=== PATIENT | male | born 1945 | race Caucasian/White ===

== ENCOUNTER 2017-07-23 04:09 | Inpatient (IN) | payer MEDICARE, OTHER ==
[2017-07-23 05:49] LABS: #Lymphocytes 0.3 thou/uL (1.20-3.40); #Monocytes 0.3 thou/uL (0.11-0.59); #Neutrophils 8.1 thou/uL (1.40-6.50); %Eosinophils 0.2 % (0.0-10.0); %Lymphocytes 3.5 % (21.0-51.0); %Monocytes 3.4 % (0.0-10.0); Hemoglobin 7.7 g/dL (14.0-18.0); Mean Corpuscular HGB CONC 31.8 g/dL (32.0-36.0); Mean Corpuscular Hemoglobin 27.2 pg (27.0-31.0); Mean Corpuscular Volume 85.6 fl (80.0-94.0); Mean Platelet Volume 7.8 fL (7.4-10.4); Platelet Count 265 thou/uL (130-400); RBC Distribution Width 17.7 % (11.5-14.5); Red Blood Cell (RBC) Count 2.84 mill/uL (4.70-6.10); White Blood Cell (WBC) Count 8.7 thou/uL (4.8-10.8)
[2017-07-23 05:53] LABS: Bilirubin Negative (Negative); Blood, Urine Moderate (Negative); Clarity CLEAR (Clear); Glucose, Urine (Dipstick) 500 mg/dL (Negative); Leukocyte Negative (Negative); Nitrite Negative (Negative); Protein, Urine (Dipstick) Negative (Neg-Trace); Specific Gravity, Urine 1.012 (1.002-1.036); Urobilinogen 0.2 mg/dL (0.2-1.0)
[2017-07-23 06:07] LABS: ALT (SGPT) 16 U/L (8-55); AST (SGOT) 23 U/L (5-34); Albumin 3.5 g/dL (3.4-4.8); Alkaline Phosphatase 78 U/L (40-150); Anion Gap 15 mmol/L (10-20); BUN (Urea Nitrogen) 22 mg/dL (8.4-25.7); Bilirubin, Total 0.3 mg/dL (0.2-1.2); CK (CPK) 184 U/L (30-200); Calc. Creatinine Clearance 0 mL/min (70-130); Calcium 8.6 mg/dL (7.8-10.44); Carbon Dioxide 20 mmol/L (23-31); Chloride 95 mmol/L (98-107); Estimated GFR-MDRD 46; Globulin 3.8 g/dL (2.4-3.5); Glucose 455 mg/dL (83-110); Lipase 12 U/L (8-78); Magnesium 1.8 mg/dL (1.6-2.6); Potassium 4.2 mmol/L (3.5-5.1); Protein, Total 7.3 g/dL (5.8-8.1); Sodium 126 mmol/L (136-145)
[2017-07-23 06:14] LABS: CKMB 10.1 ng/mL (0-6.6); Troponin I 2.061 ng/mL (< 0.028)
[2017-07-23] MEDS ORDERED: Enoxaparin Sodium 80 MG/0.8 ML SYRINGE ONE (06:36)
[2017-07-23 07:07] LABS: Bacteria/HPF None Seen HPF (None Seen); Hyaline Casts/LPF 0-3 HYALINE CAST LPF (0-3 Hyaline); Squamous Epithelial 0-3 HPF (0-3); WBC/HPF 0-3 HPF (0-3)
--- NOTE | 2017-07-23 07:09 | PDOC.FPRHP ---
- History of Present Illness Chief Complaint: Shortness of breath, Chest pain History of Present Illness: 72 year old male with PMH significant for HTN, DM type II, and CHF that presented to [facility] with complaints of severe shortness of breath on exertion, chest pain, and diaphoresis. Patient states that he got up from his recliner early this morning when he started to have extreme difficulty catching his breath. He made it barely 10 feet before having to gasp for air. Patient states he has been getting short of breath on exertion since being discharged from the hospital 3 weeks ago; however, it has never been this severe. He was released from the hospital 3 weeks ago after being treated for 6 weeks with IV antibiotics for osteomyelitis of the left foot which required amputation of all digits. This most recent episode was associated with diffuse pressure-like chest pain with no radiation of symptoms and a feeling of being very hot. He denies any nausea. Patient is uncertain of the medications he takes and does not have very good recollection of his PMH. He does state that he had issues with his liver, so he quit drinking 2 years ago. However, he relapsed since last hospital visit 3 weeks ago. He has a history of bloody emesis and has had scopes performed in the past. He cannot recall the results of those scopes. Additionally, he did note 3 black stools prior to discharge from hospital three weeks ago but did not want to stay to be further worked up. He has not noted any episodes since then. Last colonoscopy was around 5 years ago which was normal at that time. Patient had lab work done recently. He received a call from his PCP yesterday afternoon asking him to go to the ED due to concerns on lab work. He cannot recall exactly why they told him to go to the ED, and decided against going due to how for it was from home. Patient had cardiac catheterization done years ago which was normal. He thinks he had a recent echo done while in hospital to further evaluate heart murmur. Of note, patient was started on warfarin, although he does not know exactly why he is taking it. He thinks it is because of the murmur. It sounds like he was started on that at last discharge. ED Course: Transferred from [facility] due to NSTEMI. Given ASA 81 mg and started on therapeutic lovenox in ED. Given 2g of magnesium. Sent for CTA. Given 1 unit of pRBCs at [facility]. - History PMHx: Known PMH includes HTN, DM type II, CAD, Heart murmur, liver dysfunction PSHx: Left foot amputation (all 10 digits), cholecystectomy, Right first digit amputation FHx: No history of early CAD Social: Endorses alcohol abuse history. Quit 2 years ago due to liver problems. Recently relapsed after being released from hospital 3 weeks ago. Endorses tobacco abuse history. He states he quit smoking 3 months ago, but started smoking again after last hospitalization. - Review of Systems General: denies: fever/chills, weight/appetite/sleep changes Eyes: denies: vision changes ENT: denies: nasal congestion, rhinorrhea Respiratory: reports: shortness of breath, exercise intolerance. denies: cough , congestion Cardiovascular: reports: chest pain, edema. denies: palpitation Gastrointestinal: reports: constipation, GI bleeding. denies: nausea, vomiting , diarrhea, abdominal pain Genitourinary: reports: incontinence. denies: dysuria, polyuria Skin: denies: rashes, lesions Musculoskeletal: reports: pain. denies: stiffness Neurological: reports: numbness, weakness. denies: syncope, seizure Psychological: denies: depression - Vital signs BP: [119/75] HR: [106] RR: [18] Tmax: [98] Pox: [99]% on [2L] Wt: [86 kg] - Physical Exam Constitutional: NAD, awake, alert and oriented, well developed HEENT: EOMI, no scleral icterus Neck: supple Heart: RRR -Heart: 3/6 systolic murmur Lungs: CTAB, no respiratory distress, no wheezing Abdomen: soft, non-tender, bowel sounds present, no masses/distention -Musculoskeletal: Left foot amputation; all 5 digits amputated. Amputation of first digit on right. Reproducible pain on palpation of chest wall. Neurological: no focal deficit Skin: good turgor, capillary refill <2 seconds -Skin: Left midfoot amputation wound site is intact. No purulent drainage or evidence of infection. Mild erythema surrounding wound. No warmth or significant tenderness to palpation. Mild swelling of left foot and ankle. Heme/Lymphatic: no unusual bruising or bleeding FMR H&P: Results - Labs Result Diagrams: 07/23/17 05:24 07/23/17 05:24 Lab results: WBC 8.7 thou/uL (4.8-10.8) 07/23/17 05:24 Hgb 7.7 g/dL (14.0-18.0) L 07/23/17 05:24 Hct 24.3 % (42.0-52.0) L 07/23/17 05:24 MCV 85.6 fl (80.0-94.0) 07/23/17 05:24 Plt Count 265 thou/uL (130-400) 07/23/17 05:24 Neutrophils % 93.0 % (42.0-75.0) H 07/23/17 05:24 Sodium 126 mmol/L (136-145) L 07/23/17 05:24 Potassium 4.2 mmol/L (3.5-5.1) 07/23/17 05:24 Chloride 95 mmol/L (98-107) L 07/23/17 05:24 Carbon Dioxide 20 mmol/L (23-31) L 07/23/17 05:24 BUN 22 mg/dL (8.4-25.7) 07/23/17 05:24 Creatinine 1.49 mg/dL (0.6-1.3) H 07/23/17 05:24 Glucose 455 mg/dL (83-110) H 07/23/17 05:24 Calcium 8.6 mg/dL (7.8-10.44) 07/23/17 05:24 Total Bilirubin 0.3 mg/dL (0.2-1.2) 07/23/17 05:24 AST 23 U/L (5-34) 07/23/17 05:24 ALT 16 U/L (8-55) 07/23/17 05:24 Alkaline Phosphatase 78 U/L (40-150) 07/23/17 05:24 Creatine Kinase 184 U/L (30-200) 07/23/17 05:24 CK-MB (CK-2) 10.1 ng/mL (0-6.6) H* 07/23/17 05:24 B-Natriuretic Peptide 1830.4 pg/mL (0-100) H 07/23/17 05:24 Serum Total Protein 7.3 g/dL (5.8-8.1) 07/23/17 05:24 Albumin 3.5 g/dL (3.4-4.8) 07/23/17 05:24 Lipase 12 U/L (8-78) 07/23/17 05:24 Urine Ketones Negative mg/dL (Negative) 07/23/17 05:27 Urine Blood Moderate (Negative) H 07/23/17 05:27 Urine Nitrite Negative (Negative) 07/23/17 05:27 Ur Leukocyte Esterase Negative (Negative) 07/23/17 05:27 - Radiology Interpretation CT scan - chest Status: report reviewed by me Additional comment: No PE. Pulmonary edema. Indeterminate left upper lobe cavitary lesion. Chest x-ray Status: report reviewed by me Additional comment: Right lower lobe infiltrate. FMR H&P: A/P - Problem List (1) NSTEMI (non-ST elevated myocardial infarction) Current Visit: Yes Status: Acute Code(s): I21.4 - NON-ST ELEVATION (NSTEMI) MYOCARDIAL INFARCTION (2) Severe anemia Current Visit: Yes Status: Acute Code(s): D64.9 - ANEMIA, UNSPECIFIED (3) CHF (congestive heart failure) Current Visit: Yes Status: Acute Code(s): I50.9 - HEART FAILURE, UNSPECIFIED Qualifiers: Heart failure chronicity: acute on chronic (4) HTN (hypertension) Current Visit: Yes Status: Chronic Code(s): I10 - ESSENTIAL (PRIMARY) HYPERTENSION (5) DM type 2 (diabetes mellitus, type 2) Current Visit: Yes Status: Chronic Qualifiers: Diabetes mellitus exterminator helper insulin use: with nursing home use Diabetes mellitus complication status: without complication Qualified Code(s): E11.9 - Type 2 diabetes mellitus without complications; Z79.4 - senior living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; Z79.4 - senior living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; Z79.4 - exterminator helper ( 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; Z79.4 - senior living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 (6) Osteomyelitis Current Visit: Yes Status: Acute Code(s): M86.9 - OSTEOMYELITIS, UNSPECIFIED (7) Murmur, cardiac Current Visit: Yes Status: Acute Code(s): R01.1 - CARDIAC MURMUR, UNSPECIFIED - Plan NSTEMI: - Possibly due to demand - Patient presented with severe symptomatic anemia and CHF exacerbation - Initial troponin of 1.131 --> 2.061; CKMB 8.1 --> 10.1 - Asymptomatic currently; no chest pain, no shortness of breath at rest - Given 81 mg ASA in ED - Therapeutic lovenox - Consult cardiology - Cardiac catheterization years ago nml - NPO until evaluated by cardiology and GI - NS @ 125 ml/hr - ST depression in inferior and lateral leads - CTA negative for PE. Questionable upper lobe cavitary lesion Acute hypoxic respiratory failure: - Continue O2 supplementation PRN - Likely 2/2 severe anemia and CHF exacerbation Severe symptomatic anemia: - Hg 6.9 in [facility] - S/p 1 unit pRBCs --> Hg 7.7 - Type and cross 2 units of pRBCs - Q4h H&H - Consult GI - FOBT positive, no BRBPR - On warfarin, uncertain of how often patient has been taking it or when it was started - INR 1.3 - Last colonoscopy 5 years ago which was normal at that time CHF exacerbation - BNP 1034 --> 1830 after pRBCs - Pleural effusions noted on CT - 40 mg IV lasix given in ED - Will give an additional 40 mg IV lasix and monitor fluid status - Strict I&O's - Weigh daily - Continue home meds and evaluate if patient on BB, JOSE A-I, spironolactone - O2 PRN - Repeat echo Hyponatremia - Likely 2/2 increased volume - Will treat more acute problems and continue to monitor sodium CODY vs. CKD - Continue to monitor kidney function - Likely d/t poor perfusion DM type II - Uncontrolled - Continue home insulin regimen - Mild SSI - CC carb diet HTN - Continue home medications DVT ppx - Lovenox, therapeutic Disposition/LOS: Dispo: Admit to telemetry. Consult cards and GI this AM. Monitor H&H. Anticipate stay of >2 days. FMR H&P: Upper Level - Pertinent history 72 yo male with DM, CHF and recent osteomyelitis, presents with fatigue, sob and chest pain. Fatigue started several days ago but chest pain started last night. He says his sob is worse when he lays flat. he was sweaty earlier. Now he feels better from sob and pain, but still fatigued. He denies fever or nausea. He has had no vomiting or dark or bloody stools. No abdominal pain. He was admitted for 6 weeks for abx and mid foot amputation. He was discharge on warfarin and he stopped taking it from increased fatigue. He is not sure if he has ever had afib. He denied dark stools at time of warfarin. He denies hx of CAD - Pertinent findings Gen: WD/WN male in no acute distress but sitting up for easier breathing. HEENT: NC/AT, FRANK,EOMI, MMM Resp: CTA, mild increase normal work of breathing but moving good air on exam and not tachypneic CV: RRR, normal S1, S2, 3/6 systolic murmur, no appreciable extra heart sound ABD: Soft nontender, nondistended Extremities: no edema, pulses 2+, Left mid foot amptuation Psych: mildly anxious Neuro- normal strength and sensation EKG- sinus tachycardia with ST depressions in 1, V4-6, - Plan Date/Time: 07/23/17 0658 IBob, have evaluated this patient and agree with findings/plan as outlined by direct marketing intern resident. Pertinent changes/additions are listed here. 1.NSTEMI- elevated trops, acute symptoms and ST depression in congruent leads. Treated with asa and lovenox with improvement of symptoms. Will admit and consult cards. Will continue lovenox and monitor trops. 2.CHF exacerbation- patient has symptoms of orthopnea. Will give Lasix, monitor for volume issues and repeat echo. Could have new valvular issue. Requesting home medications to continue beta afsaneh. 3.Symptomatic anemia- improved with 1 PRBC but will check q4 H+H. see below for cause 4.GI blood loss- Has past hx, so will monitor closely for increased. No merissa blood or melena, but positive FOBT. Will need repeat endoscopy at some point, but hopefully outpatient if no signs of large volume bleeding. Will monitor vitals closely, have transfusions ready and check q4 Hemoglobin 5.DM2- will give extra insulin now for increased levels and then continue home regemin with ssi 6.CODY vs CKD- will treat above and monitor 7.Hyponatremia- Will treat other conditions and monitor with repeat level tomorrow. Likely due to increased volume from chf vs SIADH. 8.DVT ppx- on lovenox Attending Addendum - Attending Addendum Date/Time: 07/23/17 3129 I personally evaluated the patient and discussed the management with Dr. Moon. I agree with the History, Examination, Assessment and Plan documented above with any addition or exceptions noted below. 72 y.o. WM with h/o PVD s/p R transmet amputation, CHF, DM2, HTN, Cirrhosis, Microcytic Anemia transferred from [facility] ED for Severe anemia, Guaiac pos , sx's c/w NYHA Class IV exacerbation of CHF, and NSTEMI. Transfused, Diuretic , NTG, O2, Card and GI consults.
--- NOTE | 2017-07-23 07:56 | CT ---
PRELIMINARY REPORT/[facility]/EMERGENCY AFTER HOURS PROCEDURE: EXAM: CT Angiography Chest With Intravenous Contrast CLINICAL HISTORY: 72 years old, male; Pain; Chest pain; Type not specified; Patient HX: History provided by patient, 72 yo m transferred from [place] presents to ed C/O SOB. Pt was found to have anemia and nstemi wi th troponin of 1.1. Pt tachy with pulse 122 and BP initially 109/65 at [place]. O2 sats 100% on room air. [facility] [place] [facility] was started on warfarin x3 days ago. P t does have a h/o copd but does not use supplemental o2 at home. Hgb 6.9 at [place]. Elevated tr oponin due to tachycardia and demand ischemia as opposed to cardiac condition. Thus, aspirin was held at the time due to concerns for bleeding. Magnesium was low at 1.2. Given 40 of lasi x due to bnp of 1000. D-dimer elevated at 0.83. Inr 1.3. Pt denies chest pain. Denies dark or tarry s tools, denies blood in stool. Denies blood in urine. Pt states that he is feeling tired. Reports intermittent subjective fever recently. TECHNIQUE: Axial computed tomographic angiography images of the chest with intravenous contrast using pulmonary embolism protocol. Coronal reformatted images were created and reviewed. CONTRAST: 70 mL of ISOVUE administered intravenously. COMPARISON: No relevant prior studies available. FINDINGS: Pulmonary arteries: No pulmonary embolus is identified. Aorta: Aortic valvular calcifications. No thoracic aortic aneurysm. Lungs: Band of right upper lobe scarring. 1.2 cm pleural-based nodular density with spiculated margin s posteriorly in the right upper lobe. 1.8 cm cavitary lesion with spiculated margins in the left upp er lobe. Basilar predominant peribronchial and interlobular septal thickening and patchy groundglass opacity. Pleural space: Small right and minimal left pleural effusions. Heart: Coronary calcifications. No significant pericardial effusion. Bones/joints: No acute fracture. No dislocation. Soft tissues: Unremarkable. Lymph nodes: Unremarkable. No enlarged lymph nodes. Upper abdomen: Nodular liver with prominent caudate lobe. Cholecystectomy. IMPRESSION: 1. No evidence of pulmonary embolus. Basilar predominant peribronchial and interlobular septal thicke nannette suggestive of pulmonary edema with small right and minimal left pleural effusions. 2. Indeterminate left upper lobe cavitary lesion. Right upper lobe scarring and spiculated pleuralbas ed nodular density posteriorly. Thank you for allowing us to participate in the care of your patient. Dictated and Authenticated by: Gerardo Donahue MD 07/23/2017 6:20 AM Central Time ([place] & [place]) FINAL REPORT CT ANGIOGRAM OF CHEST: Date: 07/23/17 HISTORY: Shortness of breath. Evaluate for pulmonary artery embolism. COPD. COMPARISON: None. TECHNIQUE: CT angiogram of the chest is performed in the axial plane. Bilateral oblique and coronal three-dimens ional reformatted images are submitted for interpretation. FINDINGS: This report is in agreement with the preliminary report by [facility]. No evidence of pulmonary artery embo lism to the level of the segmental arteries. There appear to be chronic changes throughout the lung p arenchyma. There is an area of scarring in the right upper lobe. There is a pleural based opacity wit h slightly irregular marginations involving the posterior aspect of the right upper lobe measuring 1. 6 cm. There is a cavitary lesion with spiculated margin in the left upper lobe, measuring 1.8 cm. Cir rhotic changes to the liver are noted. Nonspecific subcarinal lymph node measuring 1.4 x 2.1 cm. Mild right hilar lymphadenopathy, measuring 1.3 x 1.5 cm. Precarinal lymph node measuring 1.4 cm. Better interrogation with pulmonary consultati on is recommended. CODE LN. POS: [facility]
[2017-07-23 09:12] LABS: Troponin I 5.879 ng/mL (< 0.028)
[2017-07-23] MEDS ORDERED: traMADol HCl 50 MG TAB ONE ×2 (09:12)
[2017-07-23] MEDS ORDERED: Furosemide 40 MG/4 ML VIAL SLOW IVP SCH ×3 (10:00→22:15)
[2017-07-23] MEDS ORDERED: Furosemide 40 MG/4 ML VIAL ONE (10:42)
[2017-07-23 12:00] LABS: CKMB 13.3 ng/mL (0-6.6); Troponin I 9.237 ng/mL (< 0.028)
[2017-07-23] MEDS ORDERED: Dextrose 5% in Water 1,000 ML IV PRN ×2 (14:26→17:59)
[2017-07-23] MEDS ORDERED: Dextrose 50% Abboject 50 ML SYRINGE SLOW IVP PRN ×2 (14:26→17:59)
[2017-07-23] MEDS ORDERED: ISOVUE-370 76%-LOCM 1 ML ONE (14:44)
[2017-07-23 15:30] VITALS: BMI 25.3
[2017-07-23] MEDS: Nitroglycerin 2% Ointment 1 INCH/1 GM Packet TOP SCH ×2 (16:00→22:05)
[2017-07-23] MEDS: Carvedilol 3.125 MG TAB PO SCH (17:56)
[2017-07-23] MEDS ORDERED: traMADol HCl 50 MG TAB PO SCH (18:00)
[2017-07-23] MEDS ORDERED: Insulin Regular 300 UNITS/3 ML VIAL SC SCH ×3 (18:00→21:15)
[2017-07-23 18:04] LABS: Hemoglobin 8.8 g/dL (14.0-18.0); Platelet Count 234 thou/uL (130-400)
[2017-07-23 18:19] LABS: Hemoglobin A1c 6.1 % (4.0-6.0)
[2017-07-23 18:30] LABS: Cardiac Risk 3.7 (Less than 4.5)
[2017-07-23 18:44] LABS: CKMB 13.7 ng/mL (0-6.6); Troponin I 12.092 ng/mL (< 0.028)
--- NOTE | 2017-07-23 19:42 | CON ---
DATE OF CONSULTATION: 07/23/2017 CARDIOLOGY CONSULTATION INDICATION FOR CONSULTATION: This is a 72-year-old patient with a history of severe anemia, shortnes s of breath, dyspnea on exertion. He denied any chest pain to me. He presented to the emergency jose in [place], who complained of shortness of breath while going to the kitchen to get something to drink. He then eventually called 911 and was given oxygen, was taken to the emergency room, he wa s found to have severe anemia. His hemoglobin, I believe is less than 7. He has been transfused at least 1 unit. Hemoglobin at least 5:00 this morning was 7.7, hematocrit 24.3, WBC of 8.7 and platele t count was 265,000. He recently was in the hospital in [place] for about he says about 6-7 weeks whe re he had amputation of the left foot toes and part of the forefoot appears to be also had been remov ed, but this just may have been up to the metatarsals. He was there for several weeks apparently due to osteomyelitis which could not be healed. He does have history of diabetes and he had a long hist ory of tobacco abuse. He has been smoking in the past. He said up to 3 packs a day for approximatel y 30 years and he stopped smoking about 3 months ago. He had peripheral vascular disease, it was fel t that perhaps he would need to have some intervention performed. He is uncertain whether that was d one in [place] or not. When he came in today, he also said he had a catheterization in [place] many y ears ago, so he had no significant disease. He did have history of cardiac murmur, but denied any ch est pain. He is uncertain as to whether or not he had a recent stress test. He did possibly have an echo in [place] recently on his last admission there. At this time in the emergency room, his cardia c enzymes are slightly elevated and EKG showed some nonspecific changes, ST segment depression in the inferior and lateral leads. His laboratory data showed a troponin I to be 2.06 and it increased all the way up to 9.23 with an MB of 13.3, which likely is indicative of myocardial infarction which may be associated with his severe anemia but most likely has underlying coronary artery disease. It is a very difficult situation for this patient at this time since we are unable take him to the cardiac lab[facility] when his hemoglobin is low at 7.7. We will need to try to treat him medically first and the n evaluate him later if at all possible. He had been given a dose of Lovenox earlier today and I wobrennan oliveros suggest we switch this if necessary over to heparin so that it can be reversed if necessary if he has any overt bleeding. He denies any significant recent bleeding at this time. His BNP also was el evated at 1830, compound with some degree of congestive heart failure and will need to have an echoca rdiogram as soon as possible. PAST MEDICAL HISTORY: Significant for diabetes type 2, hypertension, history of liver dysfunction. He has had left foot amputation of all the digits. He has also had 2 digits removed from the right f oot. The first and second digits of the right foot have been removed. He has had a cholecystectomy. SOCIAL HISTORY: He has a history of alcohol abuse. He said he stopped about 2 years ago. There is some indication that he started drinking again after being released in the hospital, but he denied th at to me. He said he stopped smoking and has not started again, but did have a long history of tobac co abuse in the past. He lives at home. REVIEW OF SYSTEMS: A 12-point review of systems is unremarkable except for what is noted in the hist ory of present illness. ALLERGIES: No known drug allergies. PRESENT MEDICATIONS: Include nebulizer treatments. He is on insulin with a sliding scale, Protonix, and nitroglycerin. He has been given nitroglycerin paste. PHYSICAL EXAMINATION: GENERAL: Reveals an elderly, ill, kempt gentleman who is alert and oriented at this time. He denies any significant symptoms. He is not short of breath and is not having any chest discomfort. VITAL SIGNS: His blood pressure 120/86, heart rate 115 and shows a sinus rhythm. HEENT: Shows head to be normocephalic and atraumatic. There is some noise or some radiation from th e aortic area up into the carotids. It does not sound as if he has carotid bruits, but this is radia tion from the aortic area. LUNGS: His chest has decreased breath sounds throughout, I do not hear any rales, rhonchi or wheezin g. CARDIOVASCULAR: Exam reveals a tachycardia with a regular rhythm. He has a systolic murmur 2/6 over the aortic area, also systolic murmur at the apex approximately 3/6 compatible most likely with mitr al valve regurgitation as well as some aortic valve sclerosis or mild stenosis. ABDOMEN: Shows some mild obesity. Liver seems to be enlarged, slightly tender. Bowel sounds are pr esent. Otherwise, there were no masses. EXTREMITIES: Showed no clubbing or cyanosis. He has evidence of recent surgery, digit removal of th e left foot and also some of the right foot. I could not palpate pedal pulses, but could palpate fem oral pulses. Popliteal pulses also are significantly decreased. NEUROLOGIC: The patient appears to be intact. SKIN: Warm and dry. LABORATORY DATA: Most important for the troponin I which is increased from 2.06 up to 9.23 compatibl e with a non-ST segment elevation myocardial infarction with an MB which is increased up to 13.3. Hi s BNP is 1830. His sodium is 126, creatinine is 1.49, blood sugar is 455. Hemoglobin is 7.7, hemato crit 24.3, WBC of 8.7 and platelet count was 265,000. His PTT was 39.7. Urinalysis shows 500 units of glucose in the urine. IMPRESSION: 1. Non-ST segment elevation myocardial infarction which appears to be inferior lateral most likely t his gentleman does have significant underlying coronary artery disease, has a long history of tobacco abuse and diabetes. Once he becomes more stable then he should undergo cardiac catheterization for evaluation of his coronary arteries. In the meantime, it will be very difficult if necessary to rebecca t this gentleman, but if there is no overt bleeding, would advise heparin, which could be easily reve rsed if necessary. Also, we would add nitroglycerin as much as tolerated as well as beta blockers to keep the heart rate under better control. 2. History of significant anemia and there is no overt bleeding at this time that we are aware of. We will need to have further evaluation to see whether or not there is any blood in the stools and wi ll need to transfuse the patient at least hemoglobin, most likely to 10 since he appears to be having myocardial infarction. He is not a candidate to go to the cardiac [facility] unless it is a life and unless the hemoglobin is more than 10. 3. History of diabetes. This will be dealt with by the primary care service. It is noted that his blood sugar at this time is obviously not under good control and severely elevated when he arrived in today. Blood sugar was over 455. 4. Hyponatremia, which most likely is associated with the elevated blood sugar, this will also need to be addressed by the primary care service. 5. History of tobacco abuse and most likely severe peripheral vascular disease and he does have mike pheral vascular disease and actually has decreased pedal pulses, I cannot palpate them nor popliteal pulses. We will try this by Doppler. In the future, he may also need to undergo further evaluation if this was not performed in [place]. We will need to obtain the records from [place] to see exactly w hat kind of workup and evaluation was performed while he was there. At this time, I would continue h is medicines, but would add beta blockers if at all possible and continue nitrates if possible based on the blood pressure and see if he can tolerate these and certainly transfuse the patient at least i n his case up to hemoglobin of 8. We will obtain an echocardiogram for evaluation of left ventricula r systolic function.
[2017-07-23] MEDS: HumaLOG 300 UNITS/3 ML VIAL SC PRN ×2 (19:45→22:11)
[2017-07-23] MEDS ORDERED: Atorvastatin Calcium 40 MG TAB PO SCH (21:00)
[2017-07-23] MEDS ORDERED: Insulin Detemir 100 UNITS/ML 15 UNITS in Admixture Fee 1 EACH SC SCH (21:00)
[2017-07-23] MEDS: Pantoprazole 40 MG VIAL IVP SCH (22:05)
[2017-07-23] MEDS: Melatonin 3 MG TAB PO PRN (22:05)
[2017-07-23] MEDS: Insulin Detemir 100 UNITS/ML 30 UNITS in Pre-Filled Syringe 1 EACH SC SCH (22:06)
[2017-07-23 22:11] LABS: CKMB 10.8 ng/mL (0-6.6); Critical Call CKMBM RESULT DECREASING; Critical Call Chem Troponin I RESULT DECREASING; Troponin I 11.369 ng/mL (< 0.028)
--- NOTE | 2017-07-23 22:58 | PDOC.EVN ---
Event Note - Event Note Event Note: Communicated with Dr. Amin regarding increased troponin at 2049. - Dr. Amin recommended starting ASA 325mg, states the patient quite possibly has 3V disease but is not a candidate for CABG at this time - EF 20%, guarded prognosis - patient not having chest pain at this time - Will hold off on heparin for now 2/2 Dr. Amin recs - Trend cardiac enzymes Patient is receiving blood products, will give lasix 40mg IV Regarding hyperglycemia, latest glucose is in 230s - will give HS levemir - SSI - continue to monitor
[2017-07-24] MEDS: traMADol HCl 50 MG TAB PO PRN ×3 (01:19→18:20)
[2017-07-24 01:29] LABS: CKMB 9.8 ng/mL (0-6.6); Troponin I 11.629 ng/mL (< 0.028)
--- NOTE | 2017-07-24 02:49 | CON ---
DATE OF CONSULTATION: 07/22/2017 HISTORY OF PRESENT ILLNESS: Mr. Cruz is a 72-year-old male. He presented to [facility] with complaints of shortness of breath. He was transferred here when he was found to be severely anemic. He had a transmetatarsal amputation of his left foot recently. He has a long history of diabetes, tobacco use. PAST MEDICAL HISTORY: Remarkable for, 1. Diabetes. 2. History of hypertension. 3. History of peripheral vascular disease, status post multiple digit amputations of his lower extremities. 4. History of cholecystectomy. 5. History of heavy alcohol use up until 2 years ago. 6. History of heavy tobacco use. 7. History of no drug allergies. FAMILY HISTORY: Negative for lung disease in early age. SOCIAL HISTORY: Smoker and former heavy alcohol use MEDICATIONS: Have been reviewed. He was anticoagulated in the emergency department. REVIEW OF SYSTEMS: 12 point review otherwise negative. PHYSICAL EXAMINATION: GENERAL: Pt is a former drinker and continues to smoke. VITAL SIGNS: His blood pressure is 123/82, heart rate is 108, respiratory rate is 20, oximetry is 92 on a nasal cannula. HEENT: His pupils are equal. Sclerae are anicteric. NECK: Supple. LUNGS: Clear. HEART: Regular rhythm. S1 and S2 are normal. ABDOMEN: Soft and nontender. EXTREMITIES: Without clubbing, cyanosis, or edema. Hemoglobin at 0524 this morning was 7.7, it was 6.9 just after midnight, and this evening it is 8.8 grams. Sodium is 126, potassium 4.2, chloride 95, bicarbonate 20, BUN 22, creatinine 1.49, glucose was 455. When corrected, this has put his sodium up close to 130. His hemoglobin A1c is surprisingly 6.1. Troponins peaked at [address] so far. BNP was 1830. CT pulmonary angiogram shows no pulmonary embolus. He has bilateral upper lobe , 1.2 on the right and 1.8 cm on the left lesions. Chest CT is reviewed by me. IMPRESSION: 1. Dyspnea on exertion secondary to severe anemia. 2. Coronary disease with a positive troponin. 3. Bilateral upper lobe nodular densities. It could be consistent with malignancy. We have no old CT imaging in the system here. I will be happy to follow with the other physicians. He was anticoagulated. I will be very cautious with anticoagulation in this gentleman with severe anemia. TIME SPENT: 70-minute consult, greater than 50% of the time was spent on the unit coordinating care. SHIRA
[2017-07-24 03:18] LABS: #Monocytes 0.6 thou/uL (0.11-0.59); #Neutrophils 7.2 thou/uL (1.40-6.50); %Eosinophils 0.1 % (0.0-10.0); %Lymphocytes 10.8 % (21.0-51.0); %Neutrophils 82.1 % (42.0-75.0); Hemoglobin 9.2 g/dL (14.0-18.0); Mean Corpuscular HGB CONC 33.6 g/dL (32.0-36.0); Mean Corpuscular Hemoglobin 28.8 pg (27.0-31.0); Mean Corpuscular Volume 85.7 fl (80.0-94.0); Mean Platelet Volume 7.3 fL (7.4-10.4); Platelet Count 214 thou/uL (130-400); RBC Distribution Width 16.7 % (11.5-14.5); Red Blood Cell (RBC) Count 3.21 mill/uL (4.70-6.10); White Blood Cell (WBC) Count 8.8 thou/uL (4.8-10.8)
[2017-07-24 03:46] LABS: CKMB 9.2 ng/mL (0-6.6); Critical Call CKMBM RESULT DECREASING; Critical Call Chem Troponin I RESULT DECREASING
[2017-07-24 03:50] LABS: Anion Gap 12 mmol/L (10-20); BUN (Urea Nitrogen) 28 mg/dL (8.4-25.7); Calc. Creatinine Clearance 75 mL/min (70-130); Calcium 8.7 mg/dL (7.8-10.44); Carbon Dioxide 26 mmol/L (23-31); Chloride 100 mmol/L (98-107); Estimated GFR-MDRD 68; Glucose 136 mg/dL (83-110); Potassium 3.7 mmol/L (3.5-5.1); Sodium 134 mmol/L (136-145)
[2017-07-24] MEDS: Nitroglycerin 2% Ointment 1 INCH/1 GM Packet TOP SCH ×3 (06:00→22:02)
[2017-07-24 06:08] LABS: CKMB 8.6 ng/mL (0-6.6); Critical Call CKMBM RESULT DECREASING; Critical Call Chem Troponin I RESULT DECREASING; Troponin I 10.309 ng/mL (< 0.028)
--- NOTE | 2017-07-24 08:16 | PDOC.FM ---
- Subjective Subjective: Pt s/p transfusion of 3rd unit PRBC overnight. Hgb up to 9.2 from initial presentation at 6.9. Pt states he is feeling better this AM. Trops peaked at 12.09 and CK-MB at 13.3 w subsequent downtrend. No return of Chest Pain per patient. Still with mild tachycardia at times, but much improved from yesterday. Afebrile. Vital signs otherwise stable. No new complaints this AM. 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 - Objective MAR Reviewed: Yes Vital Signs & Weight: Vital Signs (12 hours) Temp Pulse Resp BP Pulse Ox 07/24/17 05:00 98.2 F 07/24/17 00:00 98.0 F 07/23/17 23:20 98.0 F 95 15 91/71 100 07/23/17 20:50 98.4 F 104 H 17 106/67 98 07/23/17 20:33 98.4 F 102 H 17 112/81 99 Weight Weight 84.8 kg Most Recent Monitor Data Heart Rate from ECG 98 NIBP 121/85 NIBP BP-Mean 107 Respiration from ECG 15 SpO2 100 I&O: 07/23/17 07/24/17 07/25/17 06:59 06:59 06:59 Intake Total 1470 Output Total 3450 Result Diagrams: 07/24/17 03:07 07/24/17 03:07 <Neeraj Trevino - Last Filed: 07/24/17 08:13> - Objective Vital Signs & Weight: Vital Signs (12 hours) Temp Pulse Resp BP Pulse Ox 07/24/17 05:00 98.2 F 07/24/17 00:00 98.0 F 07/23/17 23:20 98.0 F 95 15 91/71 100 Weight Weight 84.8 kg Most Recent Monitor Data Heart Rate from ECG 98 NIBP 121/85 NIBP BP-Mean 107 Respiration from ECG 15 SpO2 100 I&O: 07/23/17 07/24/17 07/25/17 06:59 06:59 06:59 Intake Total 1470 Output Total 3450 Result Diagrams: 07/24/17 03:07 07/24/17 03:07 <Yakov Ferrer - Last Filed: 07/24/17 09:52> Phys Exam - Physical Examination Constitutional: NAD Improved skin tone from admission s/p transfusion HEENT: PERRLA, moist MMs Neck: no nodes Respiratory: clear to auscultation bilateral Cardiovascular: RRR 3/6 systolic ejection murmur Gastrointestinal: soft, non-tender, no distention, positive bowel sounds trace edema L-LE unchanged from admission. Toes absent L-foot Neurological: moves all 4 limbs Psychiatric: normal affect, A&O x 3 <Neeraj Trevino - Last Filed: 07/24/17 08:13> Dx/Plan (1) NSTEMI (non-ST elevated myocardial infarction) Code(s): I21.4 - NON-ST ELEVATION (NSTEMI) MYOCARDIAL INFARCTION Status: Acute Plan: Trops peaked at 12.09 w/ CK-MB at 13.3, now downtrending and no return of chest pain Seen and evaluated by cardiology yesterday. Appreciate recs Likely 2/2 demand from symptomatic anemia w/ severe underlying CAD Cont. w/ ASA, beta afsaneh, statin, and nitro per cards recs No anticoagulation at this time 2/2 concern for GI bleed and his anemia Pt not a candidate for cath until Hgb is 10 per cards Will consider transfusing another unit of PRBC w/ concurrent admin of IV lasix to prevent volume overload w/ CHF Cont. to optimize medical management (2) Severe anemia Code(s): D64.9 - ANEMIA, UNSPECIFIED Status: Acute Plan: Concern for GI bleed as source w/ + FOBT and self endorses hx of cofee ground emesis and black stools 3 wks ago GI on board appreciate recs S/p transfusion of 3U PRBC w/ hbg to 9.2 this AM from 6.9 intially Will consider transfusing another unit of PRBC today in order to get Hgb to 10 so he would be a candidate for cardiac cath Will hold any anticoagulation Cont. ASA for NSTEMI (3) GI bleed Code(s): K92.2 - GASTROINTESTINAL HEMORRHAGE, UNSPECIFIED Status: Acute Plan: Pt w/o bowel movement since admission Will repeat FOBT today Hgb responding appropriately GI on board, appreciate recs Hold anticoagulation (4) CHF (congestive heart failure) Code(s): I50.9 - HEART FAILURE, UNSPECIFIED Status: Acute QualifierTitle: Heart failure chronicity: acute on chronic Plan: mixed sdCHF EF 15-20% on echo cont. w/ medical management per cards Will give IV lasix w/ transfusion to prevent volume overload (5) Murmur, cardiac Code(s): R01.1 - CARDIAC MURMUR, UNSPECIFIED Status: Acute Plan: Likely 2/2 severe aortic stenosis seen on echocardiogram Pt has known hx of murmur [facility] ([facility]) DM type 2 (diabetes mellitus, type 2) Status: Chronic QualifierTitle: Diabetes mellitus half-way insulin use: with half-way use Diabetes mellitus complication status: without complication Qualified Code(s): E11.9 - Type 2 diabetes mellitus without complications; Z79.4 - care home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; Z79.4 - care home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; Z79.4 - care home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; Z79.4 - care home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 Plan: Better control since initiating increased dose of levemir and short acting insulin with meals Cont. w/ above regimen w/ SSI available w/ AC/HS accuchecks (7) HTN (hypertension) Code(s): I10 - ESSENTIAL (PRIMARY) HYPERTENSION Status: Chronic Plan: Will hold all BP meds besides beta afsaneh in setting of NSTEMI 2/2 concerns for hypotension BP significantly improved from admission s/p transfusion of PRBC Will continue to monitor and add back on BP meds as indicated (8) Lung mass Code(s): R91.8 - OTHER NONSPECIFIC ABNORMAL FINDING OF LUNG FIELD Status: Acute Plan: 1.8 cm cavitary lesion w/ spiculated margins in pt w/ hx of tobacco abuse concerning for primary carcinoma Pt stable from a pulmonary standpoint Reportedly this has been worked up at the [facility] already per patient Awaiting records Will continue to monitor (9) CODY (acute kidney injury) Code(s): N17.9 - ACUTE KIDNEY FAILURE, UNSPECIFIED Status: Acute Plan: Improved renal function s/p volume administration w/ PRBC Unsure at this time if underlying CKD Will continue to monitor GFR 68 this AM <Neeraj Trevino - Last Filed: 07/24/17 08:13> (1) NSTEMI (non-ST elevated myocardial infarction) Code(s): I21.4 - NON-ST ELEVATION (NSTEMI) MYOCARDIAL INFARCTION Status: Acute (2) Severe anemia Code(s): D64.9 - ANEMIA, UNSPECIFIED Status: Acute (3) CHF (congestive heart failure) Code(s): I50.9 - HEART FAILURE, UNSPECIFIED Status: Acute Qualifiers: Heart failure chronicity: acute on chronic (4) HTN (hypertension) Code(s): I10 - ESSENTIAL (PRIMARY) HYPERTENSION Status: Chronic (5) DM type 2 (diabetes mellitus, type 2) Status: Chronic Qualifiers: Diabetes mellitus half-way insulin use: with half-way use Diabetes mellitus complication status: without complication Qualified Code(s): E11.9 - Type 2 diabetes mellitus without complications; Z79.4 - care home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; Z79.4 - care home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; Z79.4 - care home ( 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; Z79.4 - terminal operations supervisor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 (6) Osteomyelitis Code(s): M86.9 - OSTEOMYELITIS, UNSPECIFIED Status: Acute (7) Murmur, cardiac Code(s): R01.1 - CARDIAC MURMUR, UNSPECIFIED Status: Acute <Yakov Ferrer - Last Filed: 07/24/17 09:52> Attending Addendum - Attending Addendum Date/Time: 07/24/17 0949 I personally evaluated the patient and discussed the management with Dr. Trevino. I agree with the History, Examination, Assessment and Plan documented above with any addition or exceptions noted below. Patient greatly improved from a subjective and objective standpoint today. His cardiac enzymes have downtrended and he denies CP, SOB, and palpitations. His hemoglobin is up from 6.9 to 9.2 s/p 3u PRBC. Plan to transfuse one more unit in anticipation of cath today. Repeat FOBT pending- no melena or hematochezia. GI will pursue endoscopy after transfusion. <Yakov Ferrer - Last Filed: 07/24/17 09:52>
[2017-07-24] MEDS: HumaLOG 300 UNITS/3 ML VIAL SC SCH ×3 (09:00→17:00)
[2017-07-24] MEDS ORDERED: Insulin Detemir 100 UNITS/ML 15 UNITS in Admixture Fee 1 EACH SC SCH (09:00)
[2017-07-24] MEDS: Insulin Detemir 100 UNITS/ML 30 UNITS in Pre-Filled Syringe 1 EACH SC SCH ×2 (09:00→21:10)
[2017-07-24] MEDS: Aspirin 325 mg Enteric Coated Tablet PO SCH (09:02)
[2017-07-24] MEDS: Pantoprazole 40 MG VIAL IVP SCH ×2 (09:04→21:10)
[2017-07-24] MEDS: Carvedilol 3.125 MG TAB PO SCH (09:04)
--- NOTE | 2017-07-24 11:37 | CON ---
DATE OF CONSULTATION: 07/24/2017 REFERRING PHYSICIAN: Dr. Yakov Ferrer, [facility]. REASON FOR CONSULTATION: Anemia, occult GI bleeding, and also history of hematemesis and passing candelaria k stool. HISTORY OF PRESENT ILLNESS: Mr. John Cruz is a very pleasant fragile looking 72-year-old Cauc[place] n male with history of hypertension, type 2 diabetes mellitus, and also peripheral vascular disease. The patient has had amputation of the left toe, because of osteomyelitis recently and was hospitaliz ed in [facility] in [place]. The patient also has had amputation of right toe 2 to 3 years ago. The patient presented to the [place] ER with acute shortness of breath and chest pain and also diap horesis, who was found to have non-STEMI myocardial infarction and was given aspirin. He felt short of breath. The shortness of breath has happened suddenly this morning. He was barely walking 10 fee t before gasping for air. The patient had no similar episodes in the past. The patient has no past history of coronary artery disease. He tells me he had a cardiac catheterization probably about 20 y ears ago in [place]. At that time, he was told to be negative. The patient has had no cardiology ev aluation recently. The patient had been drinking alcohol very heavily. He quit drinking two years a go after he was told to have liver disease at the [place] clinic. Previous hematemesis and melena on EGD. He was told to have congestion of the stomach lining and there is no mention of any cellulitis. Th e patient quit drinking completely after last episode of bleeding 2 years ago. The patient aft er his recent foot surgery and he started drinking heavily 3 weeks ago. He was drinking as much as 1 8 cans of beer every day. Approximately a week to 10 days ago, he had an episode of abdominal discom fort, nausea, indigestion. Vomited 1 time, coughing emesis and also he has some black tarry stool fo r the next couple of days. Subsequently, the stools are back to normal in color. The patient had se en me in 03/2017 and referred for EGD. An EGD was done by me in 03/2017. The EGD did not show any v aricose veins and no definite stricture seen. in diameter. The patient had me afterward s. The patient came to the ER and was found to have anemia with hemoglobin of 6.9. A rectal exam do ne showed no melena stool, but the guaiac was positive. He was given 2 units of packed RBCs and whit e blood count is 8.8. Chest pain and difficulty breathing has resolved. He has been seen by Dr. Jessee Amin for cardiology evaluation and has had echocardiogram done. At the present time, he has no eric st pain, no difficulty breathing. He is tolerating diet. No other relevant history. ALLERGIES: None. SOCIAL HISTORY: The patient is a chronic smoker and he was smoking as much as 1 pack of cigarettes p er day. The patient quit smoking. Past history of alcohol intake until two years ago. MEDICAL ILLNESSES: 1. Hypertension. 2. Type 2 diabetes mellitus. 3. Hyperlipidemia. 4. Chronic acid reflux. 5. Peripheral neuropathy. 6. Arthritis. 7. Depression. 8. Chronic obstructive pulmonary disease. 9. Status post cholecystectomy. 10. Status post right big toe amputation. 11. Status post left foot amputation. 12. Heart murmur. 13. Coronary artery disease. CURRENT MEDICATIONS: List reviewed. PAST SURGICAL HISTORY: 1. Cholecystectomy. 2. Colonoscopy in 2014. 3. EGD in 03/2017 and also had EGD in 2013 and 2014. REVIEW OF SYSTEMS: All 10-point system reviewed. Central Nervous System: No TIA, no chronic headac he, no syncope, no seizure disorder. Respiratory: Acute shortness of breath this morning. No chron ic coughing, no hemoptysis. Cardiovascular: Chest pain, diaphoresis and dyspnea. No orthopnea or P ND, no palpitations. Gastrointestinal: As in history of present illness. Genitourinary: No dysuri a, hematuria, or frequency of urination. Endocrine: Unremarkable. Hematological: Unremarkable. N europsychiatry: Unremarkable. PHYSICAL EXAMINATION: GENERAL: Patient is a thin built. He is awake, alert, and communicative. He is in no distress. He is not short of breath. VITAL SIGNS: Pulse is 117, blood pressure is 120/70. HEENT: Conjunctivae clear. NECK: Supple. No adenitis or thyromegaly noted. CARDIOVASCULAR: First and second heart sounds were normal. He has systolic murmur. LUNGS: Clear to auscultation. ABDOMEN: Soft to palpate. Abdomen is nontender. There is no organomegaly or masses. Bowel sounds are normal. EXTREMITIES: Reveal no edema. All of his left toes are amputated and also he had amputation of the right big toe. LABORATORY DATA: Shows anemia, hemoglobin was 7.7, hematocrit 24.3, platelet count 260,000. WBC is 8.7. Chem-7: Sodium 126, potassium 4.2, chloride 95, bicarbonate 20, BUN is 22, creatinine 1.49. H is cardiac enzymes are . CLINICAL IMPRESSION: A 72-year-old male with [id number] myocardial infarction being seen by Dr. Pedro Amin for cardiology evaluation: 1. GI bleeding, which have been approximately for 7-10 days ago. The stool was normal in color, but his guaiac was positive. The bleeding appears to have stopped as he has no nausea, vomiting, melena over the last 7-10 days. He had an EGD on 03/2017 did not show any esophageal varices. 2. Chronic alcohol abuse. 3. Hypertension. 4. Diabetes. 5. Hyperlipidemia. 6. Peripheral vascular disease. 7. Status post amputation of left foot digits recently. PLAN: I have spoken to Dr. Pedro Amin about she taken for a cardiac catheterization. She feels at hi gh risk because of the anemia of recent GI bleeding. He is also at high risk for endoscopic studies because of the acute [place] with what appears to be acute CHF. RECOMMENDATIONS: 1. Transfuse 1 more unit of packed RBCs. 2. IV Lasix 40 mg. 3. Follow up H&H. 4. IV Protonix. 5. May hold of the endoscopic studies for the time being because of recent AZ and acute CHF.
[2017-07-24] MEDS: HumaLOG 300 UNITS/3 ML VIAL SC PRN ×2 (11:53→21:10)
[2017-07-24] MEDS ORDERED: Furosemide 40 MG/4 ML VIAL SLOW IVP SCH (12:30)
[2017-07-24] MEDS: Carvedilol 6.25 MG TAB PO SCH (18:13)
[2017-07-24] MEDS: Morphine 4 MG/ML VIAL SLOW IVP PRN (18:34)
[2017-07-24] MEDS: Atorvastatin Calcium 40 MG TAB PO SCH (21:10)
[2017-07-24 22:05] LABS: Hemoglobin 10.9 g/dL (14.0-18.0)
[2017-07-24] MEDS: Melatonin 3 MG TAB PO PRN (22:28)
[2017-07-25] MEDS: Morphine 4 MG/ML VIAL SLOW IVP PRN ×5 (00:25→23:34)
[2017-07-25] MEDS ORDERED: Digoxin 0.25 MG TAB PO SCH (04:30)
[2017-07-25] MEDS: Esmolol 2,500 MG/250 ML 250 ML IVPB SCH ×2 (04:44→14:03)
[2017-07-25] MEDS ORDERED: Digoxin 0.5 MG/2 ML AMP SLOW IVP SCH (04:45)
[2017-07-25 05:19] LABS: #Eosinphils 0.1 thou/uL (0.0-0.7); #Lymphocytes 1.3 thou/uL (1.20-3.40); #Monocytes 0.5 thou/uL (0.11-0.59); #Neutrophils 4.8 thou/uL (1.40-6.50); %Basophils 0.1 % (0.0-1.0); %Eosinophils 1.4 % (0.0-10.0); %Lymphocytes 19.6 % (21.0-51.0); %Monocytes 7.9 % (0.0-10.0); %Neutrophils 70.9 % (42.0-75.0); Hemoglobin 10.9 g/dL (14.0-18.0); Mean Corpuscular HGB CONC 33.1 g/dL (32.0-36.0); Mean Corpuscular Hemoglobin 29.1 pg (27.0-31.0); Mean Platelet Volume 7.9 fL (7.4-10.4); Platelet Count 279 thou/uL (130-400); RBC Distribution Width 16.3 % (11.5-14.5); Red Blood Cell (RBC) Count 3.74 mill/uL (4.70-6.10); White Blood Cell (WBC) Count 6.7 thou/uL (4.8-10.8)
[2017-07-25 05:35] LABS: Anion Gap 11 mmol/L (10-20); BUN (Urea Nitrogen) 26 mg/dL (8.4-25.7); Calc. Creatinine Clearance 79 mL/min (70-130); Calcium 8.7 mg/dL (7.8-10.44); Carbon Dioxide 26 mmol/L (23-31); Chloride 101 mmol/L (98-107); Estimated GFR-MDRD 72; Glucose 105 mg/dL (83-110); Potassium 3.3 mmol/L (3.5-5.1); Sodium 135 mmol/L (136-145)
[2017-07-25] MEDS: Nitroglycerin 2% Ointment 1 INCH/1 GM Packet TOP SCH ×3 (05:51→21:02)
[2017-07-25] MEDS ORDERED: CCU Electrolyte Replacement 1 EACH FS SCH (06:10)
[2017-07-25] MEDS: Potassium Chloride 20 MEQ TAB PO SCH (06:16)
--- NOTE | 2017-07-25 08:02 | PDOC.FM ---
- Subjective Subjective: Pt w/ development of A-fib w/ RVR overnight. Cardiology contacted and placed pt on esmolol gtt and dig started. Still a-fib this AM but rate controlled. Pt denies any hx of a-fib or other arrhythmia. Denies any CP/SOB. No new complaints. VSS. - Objective MAR Reviewed: Yes Vital Signs & Weight: Vital Signs (12 hours) Temp Pulse 07/25/17 04:58 114 H 07/25/17 04:38 114 H 07/25/17 04:00 98.6 F 07/25/17 00:00 98.4 F Weight Weight 84.8 kg Most Recent Monitor Data Heart Rate from ECG 101 NIBP 116/71 NIBP BP-Mean 104 Respiration from ECG 13 SpO2 98 I&O: 07/24/17 07/25/17 07/26/17 06:59 06:59 06:59 Intake Total 1470 1370 Output Total 3450 4350 Balance -1979 Result Diagrams: 07/25/17 04:38 07/25/17 04:38 <Neeraj Trevino K - Last Filed: 07/25/17 08:00> - Objective Vital Signs & Weight: Vital Signs (12 hours) Temp Pulse Resp BP Pulse Ox 07/25/17 08:21 125/85 07/25/17 08:00 98.4 F 113 H 20 97 07/25/17 04:58 114 H 07/25/17 04:38 114 H 07/25/17 04:00 98.6 F 07/25/17 00:00 98.4 F Weight Weight 84.8 kg Most Recent Monitor Data Heart Rate from ECG 96 NIBP 124/73 NIBP BP-Mean 92 Respiration from ECG 19 SpO2 99 I&O: 07/24/17 07/25/17 07/26/17 06:59 06:59 06:59 Intake Total 1470 1370 Output Total 3450 4350 640 Balance -1979 -640 Result Diagrams: 07/25/17 04:38 07/25/17 04:38 <Yakov Ferrer A - Last Filed: 07/25/17 10:00> Phys Exam - Physical Examination Constitutional: NAD HEENT: PERRLA, moist MMs Respiratory: clear to auscultation bilateral irregularly irregular 3/6 systolic ejection murmur Gastrointestinal: soft, positive bowel sounds Musculoskeletal: no edema Neurological: moves all 4 limbs Psychiatric: A&O x 3 Skin: cap refill <2 seconds <Neeraj Trevino K - Last Filed: 07/25/17 08:00> Dx/Plan (1) Atrial fibrillation with rapid ventricular response Code(s): I48.91 - UNSPECIFIED ATRIAL FIBRILLATION Status: Acute Plan: New dx of a-fib w/ rvr overngiht currently rate controlled on esmolol gtt and PO dig Likely going for cath w/ cardiology now that Hgb >10 Will cont. to monitor on tele (2) NSTEMI (non-ST elevated myocardial infarction) Code(s): I21.4 - NON-ST ELEVATION (NSTEMI) MYOCARDIAL INFARCTION Status: Acute Plan: Trops peaked at 12.09 w/ CK-MB at 13.3, with subsequent downtrend Likely 2/2 demand from symptomatic anemia w/ severe underlying CAD Pt [facility] Cont. w/ ASA, beta afsaneh, statin, and nitro per cards recs No anticoagulation at this time 2/2 concern for GI bleed and his anemia Hgb >10 this AM. NPO in prep for possible cath by cardiology today vs scope by GI (3) Severe anemia Code(s): D64.9 - ANEMIA, UNSPECIFIED Status: Acute Plan: Concern for GI bleed as source w/ + FOBT and self endorses hx of cofee ground emesis and black stools 3 wks ago GI on board appreciate recs S/p transfusion of 4U PRBC w/ hbg to 10.9 this AM from 6.9 intially Cont. to hold any anticoagulation Cont. ASA for NSTEMI Repeat FOBT negative (4) GI bleed Code(s): K92.2 - GASTROINTESTINAL HEMORRHAGE, UNSPECIFIED Status: Acute Plan: Repeat FOBT negative Hgb responding appropriately w/ transfusions GI on board, appreciate recs Hold anticoagulation (5) CHF (congestive heart failure) Code(s): I50.9 - HEART FAILURE, UNSPECIFIED Status: Acute QualifierTitle: Heart failure chronicity: acute on chronic Plan: mixed sdCHF EF 15-20% on echo cont. w/ medical management per cards Possible cath today, pt is NPO Fluid restrict once taking PO again w/ strict I/o's and daily weights (6) Murmur, cardiac Code(s): R01.1 - CARDIAC MURMUR, UNSPECIFIED Status: Acute Plan: Likely 2/2 severe aortic stenosis seen on echocardiogram Pt has known hx of murmur [facility] (7) DM type 2 (diabetes mellitus, type 2) Status: Chronic QualifierTitle: Diabetes mellitus assisted insulin use: with assisted use Diabetes mellitus complication status: without complication Qualified Code(s): E11.9 - Type 2 diabetes mellitus without complications; Z79.4 - superintendent container terminal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; Z79.4 - senior living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; Z79.4 - senior living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; Z79.4 - superintendent container terminal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 Plan: Good control on current regimen Cont. regimen w/ SSI available w/ AC/HS accuchecks (8) HTN (hypertension) Code(s): I10 - ESSENTIAL (PRIMARY) HYPERTENSION Status: Chronic Plan: Will hold all BP meds besides beta afsaneh in setting of NSTEMI 2/2 concerns for hypotension BP significantly improved from admission s/p transfusion of PRBC Will continue to monitor and add back on BP meds as indicated (9) Lung mass Code(s): R91.8 - OTHER NONSPECIFIC ABNORMAL FINDING OF LUNG FIELD Status: Acute Plan: 1.8 cm cavitary lesion w/ spiculated margins in pt w/ hx of tobacco abuse concerning for primary carcinoma Reportedly this has been worked up at the CT already per patient Awaiting records Will continue to monitor (10) CODY (acute kidney injury) Code(s): N17.9 - ACUTE KIDNEY FAILURE, UNSPECIFIED Status: Acute Plan: Improved renal function s/p volume administration w/ PRBC Unsure at this time if underlying CKD Will continue to monitor Appears to be pre-renal w/ ratio >20 this AM <Neeraj Trevino - Last Filed: 07/25/17 08:00> (1) NSTEMI (non-ST elevated myocardial infarction) Code(s): I21.4 - NON-ST ELEVATION (NSTEMI) MYOCARDIAL INFARCTION Status: Acute (2) Severe anemia Code(s): D64.9 - ANEMIA, UNSPECIFIED Status: Acute (3) CHF (congestive heart failure) Code(s): I50.9 - HEART FAILURE, UNSPECIFIED Status: Acute Qualifiers: Heart failure chronicity: acute on chronic (4) HTN (hypertension) Code(s): I10 - ESSENTIAL (PRIMARY) HYPERTENSION Status: Chronic (5) DM type 2 (diabetes mellitus, type 2) Status: Chronic Qualifiers: Diabetes mellitus medical terminologist insulin use: with assisted use Diabetes mellitus complication status: without complication Qualified Code(s): E11.9 - Type 2 diabetes mellitus without complications; Z79.4 - superintendent container terminal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; Z79.4 - superintendent container terminal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; Z79.4 - superintendent container terminal ( 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; Z79.4 - senior living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 (6) Osteomyelitis Code(s): M86.9 - OSTEOMYELITIS, UNSPECIFIED Status: Acute (7) Murmur, cardiac Code(s): R01.1 - CARDIAC MURMUR, UNSPECIFIED Status: Acute <Yakov Ferrer - Last Filed: 07/25/17 10:00> Attending Addendum - Attending Addendum Date/Time: 07/25/17 0937 I personally evaluated the patient and discussed the management with Dr. Trevino I agree with the History, Examination, Assessment and Plan documented above with any addition or exceptions noted below. 72 y/o M w/ initial presentation for symptomatic anemia and subsequent NSTEMI and GI bleed. Episode of new onset a-fib w/ rvr overnight started on esmolol gtt and digoxin by cardiology. Now rate controlled. No new complaints otherwise. Asking for trazadone which he takes at home to help with sleep. Seen by cards this AM w/ plans for cath tomorrow now that Hgb >10. No further episodes of melanotic stools. Will continue to monitor hgb and hold antiocoagulation to prevent further episodes of bleeding. Plans for possible CABG for presumed 3-vz dz pending cath results. No plans for egd/colonoscopy at this time [facility]. <Yakov Ferrer - Last Filed: 07/25/17 10:00>
[2017-07-25] MEDS: Pantoprazole 40 MG VIAL IVP SCH ×2 (08:21→21:03)
[2017-07-25] MEDS: Carvedilol 6.25 MG TAB PO SCH ×2 (08:21→17:38)
[2017-07-25] MEDS: Aspirin 325 mg Enteric Coated Tablet PO SCH (08:22)
[2017-07-25] MEDS: traMADol HCl 50 MG TAB PO PRN ×2 (08:22→17:36)
--- NOTE | 2017-07-25 08:22 | PRG ---
DATE OF SERVICE: 07/24/2017 SUBJECTIVE: This 72-year-old male, hospitalized with acute OK, dyspnea and hypotension. T he patient gave history of cough and vomiting and melena stool approximately 8 days ago. The stool i s actually brown, but guaiac is positive. He has been transfused 3 units of blood since admission. The patient has had no hematochezia or melena. The stool is today brown, no nausea, no vomiting. Th e patient Cardiology for possible cardiac catheterization because of recent OK. He offers no c omplaints. He has no chest pain, no dyspnea. OBJECTIVE: GENERAL: He is thin built, appears comfortable. VITAL SIGNS: Pulse is 117, blood pressure 119/76. CARDIOVASCULAR SYSTEM: Within normal limits. LUNGS: Within normal limits. ABDOMEN: Soft to palpate. No organomegaly. No tenderness. No masses. LABORATORY DATA: The lab data from today's CBC shows WBC 8800, hemoglobin 9.2, hematocrit 27.5, MCV 85.7, platelet count 214,000. His chemistry panel shows sodium 134, potassium 3.7, chloride 100, BUN is 28, creatinine 1.07. CLINICAL IMPRESSION: 1. Acute myocardial infarction. 2. Acute heart failure, resolved. 3. Gastrointestinal bleeding about 8 days ago. actively. RECOMMENDATIONS: 1. IV PPI. 2. Follow up H and H. 3. Transfuse p.r.n. 4. We will defer any EGD for the time being because of acute OK. He has had no recent bleeding and the bleeding about 8 days ago, he seems stable. My recommend is to continue the PPI and also follow up H and H. Once his cardiac status is stable, gopal villeda may consider EGD later on.
[2017-07-25] MEDS: Furosemide 40 MG TAB PO SCH (08:23)
--- NOTE | 2017-07-25 08:27 | PRG ---
DATE OF SERVICE: 07/24/2017 SUBJECTIVE: Mr. Cruz is doing well. He has no complaints. [facility] saying that "I am told they were full and they did approve that he stay here and be worked up here." He has no complaints and he is actually telling me that he is very happy that he is staying. OBJECTIVE: He is afebrile, respiratory rate is 16, oximetry is 97, heart rate is 109, blood pressure 119/76. He is in atrial fibrillation by review of the rhythm strips. His lungs are clear. Heart r egular rhythm. S1 and S2 are normal. Abdomen is soft and nontender. Extremities are without clubbi ng, cyanosis, or edema. LABORATORY DATA: White count of 8.8, hemoglobin 9.2, platelets 214,000. Sodium 134, creatinine 3.7, chloride 100, bicarbonate 26, BUN 20, creatinine 1.07. Troponin peaked at 12.09. IMPRESSION: 1. Dyspnea on exertion secondary to severe anemia. He is being transfused more today. 2. Diabetes. 3. Hypertension. 4. Peripheral vascular disease, status post multiple amputations and transmetatarsal amputation of h is left foot. 5. History of heavy alcohol and tobacco in the past. 6. History of cholecystectomy. 7. I believe he just quit smoking when he came into the hospital. 8. Hyponatremia that is improved. 9. Non-ST elevation myocardial infarction, aggravated by his anemia. PLAN: Continue cardiac workup, which likely includes cardiac catheterization. He is stable in [facility] at this time and probably could move out to the intermediate care telemetry unit.
[2017-07-25] MEDS: HumaLOG 300 UNITS/3 ML VIAL SC SCH ×3 (08:31→23:37)
[2017-07-25] MEDS ORDERED: traMADol HCl 50 MG TAB PO PRN (08:40)
[2017-07-25] MEDS ORDERED: Potassium Chloride 20 MEQ TAB PO PRN (08:43)
[2017-07-25] MEDS ORDERED: Potassium Phosphate 9 MMOL in Sodium Chloride 0.9% 100 ML IVPB PRN (08:43)
[2017-07-25] MEDS ORDERED: Potassium Phosphate 15 MMOL in Sodium Chloride 0.9% 250 ML 250 ML IV PRN (08:43)
[2017-07-25] MEDS ORDERED: Potassium Chloride 40 MEQ in Premix Bag 1 BAG IVPB PRN (08:43)
[2017-07-25] MEDS ORDERED: Potassium Phosphate 12 MMOL in Sodium Chloride 0.9% 250 ML 250 ML IV PRN (08:43)
[2017-07-25] MEDS ORDERED: Potassium Chloride 40 MEQ in Sodium Chloride 0.9% 250 ML 250 ML IVPB PRN (08:43)
[2017-07-25] MEDS ORDERED: Magnesium Oxide 400 MG TAB PO PRN ×2 (08:43)
[2017-07-25] MEDS ORDERED: Magnesium 2 GM/NS 0.9% 100 ML 2 GM in Premix Bag 1 BAG IVPB PRN (08:43)
[2017-07-25] MEDS: Lisinopril 2.5 MG TAB PO SCH (09:00)
[2017-07-25] MEDS: Insulin Detemir 100 UNITS/ML 30 UNITS in Pre-Filled Syringe 1 EACH SC SCH ×2 (09:00→21:13)
--- NOTE | 2017-07-25 09:26 | PDOC.CTH ---
<Rekha Benitez - Last Filed: 07/25/17 09:24> Cardiology Progress Note - Subjective the pt seen and examined. No overnight events. No cardiac complaints. He agreed to undergo Cardiac cath tomorrow. - Objective Vital Signs Temp Pulse BP 07/25/17 08:21 125/85 07/25/17 08:00 98.4 F 07/25/17 04:58 114 H 07/25/17 04:38 114 H 07/25/17 04:00 98.6 F 07/25/17 00:00 98.4 F Weight 186 lb 15.232 oz 07/24/17 07/25/17 07/26/17 06:59 06:59 06:59 Intake Total 1470 1370 Output Total 3450 4350 640 Balance -8131 -1055 -640 - Physical Examination General/Neuro: alert & oriented x3 Neck: no JVD present Lungs: other: (diminished to RL) Heart: other: (irregular) Abdomen: soft Extremities: other: (No edema) - Telemetry Telemetry Rhythm: AFib - Labs Result Diagrams: 07/25/17 04:38 07/25/17 04:38 Troponin/CKMB CK-MB (CK-2) 8.6 ng/mL (0-6.6) H* 07/24/17 04:50 Troponin I 10.309 ng/mL (< 0.028) H* 07/24/17 04:50 - Assessment/Plan 1. NSTEMI - stable; Plan for Cardiac cath tomorrow; cont. monitor on tele 2. Afib with RVR - Rate controlled with Esmolol drip and Digoxin 0.25mg po this AM. Cont. to monitor on tele 3. 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 4. Severe Anemia - Improved after 3 PRBC tx yesterday; Hgb 10.9 from 9 yesterday. cont. to monitor 5. HTN - cont. monitor 6. DM type 2 - on ACHS BG with SS insulin 7. PVD with hxof all LT digits and 2 on Rt toe amputation - stable; 8. Hx of Liver dysfunction 2ndary to hx fo ETOH abuse - 9. Lung mass with 1.8 cm cavitary lesion w/ spiculated margins - this has been worked up at the [facility] already per patient 10. Ex-smoker, quit in 04/2017 - Smoking cessation education given to the pt MAR reviewed * Echo on 07/23/17 showed EF 15-20%, grade I diastolic dysfunction, mild LVH, mod dilated LA, normal RA, mild-mod MR, mild AR, mild TR, mild MI and severe with valve area of 0.83 sq cm. * The pt was explained about the Cardia cath procedure and the risk which are, not limited to, infection, hemorrhage, perforation, thrombus, CVA, RI, Iodine allergic reaction, and . He voiced understanding and agreed to proceed the procedure tomorrow. Review of Systems - Review of Systems Constitutional: reports: no symptoms reported EENTM: reports: no symptoms reported Respiratory: reports: no symptoms reported Cardiac (ROS): reports: no symptoms reported ABD/GI: reports: no symptoms reported : reports: no symptoms reported Musculoskeletal: reports: no symptoms reported <Sherie Amin - Last Filed: 07/25/17 16:45> Cardiology Progress Note - Objective Vital Signs Temp Pulse Resp BP Pulse Ox 07/25/17 12:00 98.3 F 07/25/17 09:00 125/85 07/25/17 08:21 125/85 07/25/17 08:00 98.4 F 113 H 20 97 07/25/17 04:58 114 H Weight 186 lb 15.232 oz 07/24/17 07/25/17 07/26/17 06:59 06:59 06:59 Intake Total 1470 1370 480 Output Total 3450 4350 1660 Balance -1979 -2980 -1180 - Labs Result Diagrams: 07/25/17 04:38 07/25/17 04:38 Troponin/CKMB CK-MB (CK-2) 8.6 ng/mL (0-6.6) H* 07/24/17 04:50 Troponin I 10.309 ng/mL (< 0.028) H* 07/24/17 04:50 - Assessment/Plan pt. seen and eval. by me. I agree with the A/P by the [employer]. He denies any cardiac complaints. Records from [facility] reviewed. PVD noted. No prior cardiac cath. EF reported as normal on his [facility] admission. Plan for cardiac cath to eval coronary status and LV function in AM. Procedure and risks discussed with the pt.
[2017-07-25] MEDS ORDERED: Communication Order-Pharmacy FS SCH (10:15)
[2017-07-25] MEDS ORDERED: Ondansetron ODT 8 MG TAB SL PRN (11:10)
[2017-07-25] MEDS: Ondansetron HCl/PF 4 MG/2 ML Vial SLOW IVP PRN ×2 (11:28→22:21)
[2017-07-25] MEDS: Atorvastatin Calcium 40 MG TAB PO SCH (21:03)
[2017-07-25] MEDS: Temazepam 15 MG CAP PO PRN (23:38)
[2017-07-26] MEDS: Esmolol 2,500 MG/250 ML 250 ML IVPB SCH ×3 (00:25→18:03)
[2017-07-26] MEDS: traMADol HCl 50 MG TAB PO PRN ×4 (00:30→20:54)
[2017-07-26 04:40] LABS: #Eosinphils 0.1 thou/uL (0.0-0.7); #Lymphocytes 1.2 thou/uL (1.20-3.40); #Monocytes 0.7 thou/uL (0.11-0.59); #Neutrophils 5.7 thou/uL (1.40-6.50); %Basophils 0.2 % (0.0-1.0); %Eosinophils 1.8 % (0.0-10.0); %Lymphocytes 15.7 % (21.0-51.0); %Monocytes 9.3 % (0.0-10.0); Hemoglobin 10.9 g/dL (14.0-18.0); Mean Corpuscular HGB CONC 31.7 g/dL (32.0-36.0); Mean Corpuscular Hemoglobin 28.2 pg (27.0-31.0); Mean Corpuscular Volume 88.9 fl (80.0-94.0); Mean Platelet Volume 8.2 fL (7.4-10.4); Platelet Count 272 thou/uL (130-400); RBC Distribution Width 15.8 % (11.5-14.5); Red Blood Cell (RBC) Count 3.88 mill/uL (4.70-6.10); White Blood Cell (WBC) Count 7.8 thou/uL (4.8-10.8)
[2017-07-26 04:52] LABS: ALT (SGPT) 16 U/L (8-55); AST (SGOT) 26 U/L (5-34); Albumin 3.1 g/dL (3.4-4.8); Alkaline Phosphatase 69 U/L (40-150); Anion Gap 13 mmol/L (10-20); BUN (Urea Nitrogen) 25 mg/dL (8.4-25.7); Bilirubin, Total 0.7 mg/dL (0.2-1.2); Calc. Creatinine Clearance 79 mL/min (70-130); Calcium 8.5 mg/dL (7.8-10.44); Carbon Dioxide 25 mmol/L (23-31); Chloride 100 mmol/L (98-107); Estimated GFR-MDRD 73; Globulin 3.8 g/dL (2.4-3.5); Glucose 122 mg/dL (83-110); Potassium 3.6 mmol/L (3.5-5.1); Protein, Total 6.9 g/dL (5.8-8.1); Sodium 134 mmol/L (136-145)
[2017-07-26] MEDS ORDERED: Lidocaine 1% (PF) 30 ML VIAL ONE (06:47)
--- NOTE | 2017-07-26 08:51 | PRG ---
DATE OF SERVICE: 07/25/2017 SUBJECTIVE: Mr. Cruz did well overnight. He has had no chest pain or shortness of breath. He is tentatively on the schedule for cardiac catheterization. He says he will need to sleep in full tonight which is a reasonable request. OBJECTIVE: VITAL SIGNS: Vital signs have been stable. LUNGS: Clear. HEART: Regular rhythm. ABDOMEN: Soft and nontender. LABORATORY DATA: Sodium 135, potassium 3.3, chloride 101, bicarbonate 26, BUN 26, creatinine 1.02. White count 6.7, hemoglobin 10.9, platelets 179,000. Intake and output - negative 2980. IMPRESSION: 1. Non-ST elevation myocardial infarction. 2. Severe anemia on presentation, source was blood loss, it is unclear. PLAN: Continue cardiac workup. At some point in time, we will need a gastrointestinal workup for so urce of his anemia.
[2017-07-26] MEDS: Morphine 4 MG/ML VIAL SLOW IVP PRN ×2 (08:57→16:35)
--- NOTE | 2017-07-26 08:58 | PDOC.FM ---
- Subjective Subjective: BETTIE overnight, VSS, no new complaints. Pt to go for cath at 0900 this AM. Still in a-fib rate controlled on tele - Objective MAR Reviewed: Yes Vital Signs & Weight: Vital Signs (12 hours) Temp 07/26/17 04:00 97.9 F 07/26/17 00:00 98.0 F Weight Weight 84.8 kg Most Recent Monitor Data Heart Rate from ECG 88 NIBP 121/56 NIBP BP-Mean 76 Respiration from ECG 18 SpO2 93 I&O: 07/25/17 07/26/17 07/27/17 06:59 06:59 06:59 Intake Total 1370 1721 Output Total 4350 2620 Balance -2980 -899 Result Diagrams: 07/26/17 03:18 07/26/17 03:18 <Neeraj Trevino - Last Filed: 07/26/17 08:56> - Objective Vital Signs & Weight: Vital Signs (12 hours) Temp Pulse Resp BP Pulse Ox 07/30/17 16:00 98.7 F 07/30/17 12:00 98.4 F 07/30/17 08:55 92 158/83 H 07/30/17 08:28 92 158/83 H 07/30/17 08:00 98.0 F 92 20 97 Weight Weight 84.776 kg Most Recent Monitor Data Heart Rate from ECG 83 NIBP 141/82 NIBP BP-Mean 104 Respiration from ECG 14 SpO2 99 I&O: 07/29/17 07/30/17 07/31/17 06:59 06:59 06:59 Intake Total 2920 3170 1080 Output Total 1453 850 800 Balance 1467 2320 280 Result Diagrams: 07/30/17 04:48 07/30/17 03:30 <Yakov Ferrer - Last Filed: 07/30/17 19:39> Phys Exam - Physical Examination Constitutional: NAD HEENT: PERRLA, moist MMs Respiratory: no wheezing, clear to auscultation bilateral 3/6 systolic ejection murmur. irregularly irregular rate/rhythm Gastrointestinal: soft, no distention, positive bowel sounds Musculoskeletal: no edema, pulses present Neurological: moves all 4 limbs Psychiatric: normal affect, A&O x 3 Skin: no rash, cap refill <2 seconds <Neeraj Trevino - Last Filed: 07/26/17 08:56> Dx/Plan (1) NSTEMI (non-ST elevated myocardial infarction) Code(s): I21.4 - NON-ST ELEVATION (NSTEMI) MYOCARDIAL INFARCTION Status: Acute Plan: Trops peaked at 12.09 w/ CK-MB at 13.3, with subsequent downtrend Likely 2/2 demand from symptomatic anemia w/ severe underlying CAD Pt w/ [facility] Cont. w/ ASA, beta afsaneh, statin, and nitro per cards recs No anticoagulation at this time 2/2 concern for GI bleed and his anemia. Will restart pending cards/GI recs Cath this AM per cardiology (2) Atrial fibrillation with rapid ventricular response Code(s): I48.91 - UNSPECIFIED ATRIAL FIBRILLATION Status: Acute Plan: New dx of a-fib w/ rvr, currently rate controlled Cath w/ cardiology this AM Will cont. to monitor on tele [facility] report, pt w/ hx of paroxysmal a-fib Will hold starting anticoagulation back for now pending cardiac cath (3) Severe anemia Code(s): D64.9 - ANEMIA, UNSPECIFIED Status: Acute Plan: Concern for GI bleed as source w/ + FOBT and self endorses hx of cofee ground emesis and black stools 3 wks ago GI on board appreciate recs S/p transfusion of 4U PRBC w/ hbg to 10.9 this AM stable from 6.9 intially Cont. to hold any anticoagulation Cont. ASA for NSTEMI Repeat FOBT negative Pt will need GI workup to eval eitiology of bleed (4) GI bleed Code(s): K92.2 - GASTROINTESTINAL HEMORRHAGE, UNSPECIFIED Status: Acute Plan: Repeat FOBT negative Hgb responding appropriately w/ transfusions GI on board, appreciate recs Hold anticoagulation (5) CHF (congestive heart failure) Code(s): I50.9 - HEART FAILURE, UNSPECIFIED Status: Acute QualifierTitle: Heart failure chronicity: acute on chronic Plan: mixed sdCHF EF 15-20% on echo New [facility]2017 [facility] w/ normal EF at this time Likely 2/2 acute insult from NSTEMI cont. 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 regimen w/ SSI available w/ AC/HS accuchecks (8) HTN (hypertension) Code(s): I10 - ESSENTIAL (PRIMARY) HYPERTENSION Status: Chronic Plan: Will hold all BP meds besides beta afsaneh in setting of NSTEMI 2/2 concerns for hypotension BP significantly improved from admission s/p transfusion of PRBC Will continue to monitor and add back on BP meds as indicated (9) Lung mass Code(s): R91.8 - OTHER NONSPECIFIC ABNORMAL FINDING OF LUNG FIELD Status: Acute Plan: 1.8 cm cavitary lesion w/ spiculated margins in pt w/ hx of tobacco abuse concerning for primary carcinoma Reportedly this has been worked up at the [facility] already per patient Per records has been stable for some time. TB work-up at [facility] negative Will continue to monitor (10) CODY (acute kidney injury) Code(s): N17.9 - ACUTE KIDNEY FAILURE, UNSPECIFIED Status: Acute Plan: Improved renal function s/p volume administration w/ PRBC Likely back to patient's baseline w/ underlying CKD Will continue to monitor <Neeraj Trevino - Last Filed: 07/26/17 08:56> (1) NSTEMI (non-ST elevated myocardial infarction) Code(s): I21.4 - NON-ST ELEVATION (NSTEMI) MYOCARDIAL INFARCTION Status: Acute (2) Severe anemia Code(s): D64.9 - ANEMIA, UNSPECIFIED Status: Resolved (3) CHF (congestive heart failure) Code(s): I50.9 - HEART FAILURE, UNSPECIFIED Status: Acute Qualifiers: Heart failure type: combined systolic and diastolic Heart failure chronicity: acute on chronic Qualified Code(s): I50.43 - Acute on chronic combined systolic (congestive) and diastolic (congestive) heart failure (4) HTN (hypertension) Code(s): I10 - ESSENTIAL (PRIMARY) HYPERTENSION Status: Chronic (5) DM type 2 (diabetes mellitus, type 2) Status: Chronic Qualifiers: Diabetes mellitus intermediate school teacher insulin use: with intermediate school teacher use Diabetes mellitus complication status: without complication Qualified Code(s): E11.9 - Type 2 diabetes mellitus without complications; Z79.4 - prison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; Z79.4 - exterminator helper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; Z79.4 - exterminator helper ( 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; Z79.4 - exterminator helper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 (6) Osteomyelitis Code(s): M86.9 - OSTEOMYELITIS, UNSPECIFIED Status: Acute (7) Murmur, cardiac Code(s): R01.1 - CARDIAC MURMUR, UNSPECIFIED Status: Acute <Yakov Ferrer - Last Filed: 07/30/17 19:39> Attending Addendum - Attending Addendum Date/Time: 07/30/171931 I personally evaluated the patient and discussed the management with Dr. Trevino. I agree with the History, Examination, Assessment and Plan documented above with any addition or exceptions noted below. No complaints. Post cath reportedly 3 vessel disease. Awaiting [facility] consult and recs. [facility]. Pt. reports lung mass has been determied benign. Anemia stable and A-fib rate controlled. <Yakov Ferrer - Last Filed: 07/30/17 19:39>
[2017-07-26] MEDS: Pantoprazole 40 MG VIAL IVP SCH ×2 (09:00→20:37)
[2017-07-26] MEDS ORDERED: Heparin 10,000 UNITS/1 ML VIAL ONE (09:24)
[2017-07-26] MEDS ORDERED: Verapamil 5 MG/2 ML VIAL ONE (09:24)
[2017-07-26] MEDS ORDERED: Nitroglycerin 100MG/250ML BOT 250 ML ONE (09:24)
[2017-07-26] MEDS: Potassium Chloride 20 MEQ TAB PO SCH (10:38)
[2017-07-26] MEDS: Aspirin 325 mg Enteric Coated Tablet PO SCH (10:38)
[2017-07-26] MEDS: Carvedilol 6.25 MG TAB PO SCH ×2 (10:39→17:29)
[2017-07-26] MEDS: Lisinopril 2.5 MG TAB PO SCH (10:42)
[2017-07-26] MEDS: Furosemide 40 MG TAB PO SCH (10:42)
[2017-07-26] MEDS: Nitroglycerin 2% Ointment 1 INCH/1 GM Packet TOP SCH ×3 (10:51→23:22)
[2017-07-26] MEDS: Ondansetron HCl/PF 4 MG/2 ML Vial SLOW IVP PRN (11:39)
[2017-07-26] MEDS: HumaLOG 300 UNITS/3 ML VIAL SC SCH ×2 (12:00→17:40)
[2017-07-26] MEDS ORDERED: Promethazine HCl 25 MG/ML VIAL IM/IV PRN (12:12)
--- NOTE | 2017-07-26 13:19 | CON ---
DATE OF ADMISSION: 07/23/2017 DATE OF CONSULTATION: 07/26/2017 REASON FOR CONSULTATION: Evaluate the patient for coronary artery bypass grafting. HISTORY OF PRESENT ILLNESS: Mr. rCuz is a 72-year-old gentleman whose care is received at the [facility]. He was recently in the hospital with left foot and toe gangrene and underwent a transmetatarsal ampu tation. This has healed nicely. He also left the hospital anemic. He was noted at that time to hav e had bilateral pulmonary nodules on a CT scan with mediastinal adenopathy which he declined workup f or. He had atrial fibrillation while he was in the hospital and was placed on Coumadin, but went akanksha e without Coumadin being initiated. He came to our institution with hemoglobin of 6.6, severely shor t of breath. He was transfused and his shortness of breath improved. He has had positive enzymes si nce he was admitted. His echocardiogram at admission showed an ejection fraction of 15%-20%. He has had melena approximately 2 weeks ago. He also has a history of esophageal ulcerations and alcoholic cirrhosis. Other notable medical history includes diabetes mellitus. PAST MEDICAL HISTORY: Hypertension, peripheral vascular disease, and history of tobacco abuse. PAST SURGICAL HISTORY: 1. Left transmetatarsal amputation. 2. Cholecystectomy. 3. Right toe amputation. MEDICATIONS: There is an extensive list which was noted in his admission notes from the [place]. ALLERGIES: None. SOCIAL HISTORY: He continues to smoke. He says that he has stopped drinking approximately 2 years a go. He lives in [facility] and really does not do much as far as activities at all at home. PHYSICAL EXAMINATION: GENERAL: This is a disheveled-appearing gentleman currently resting comfortably in bed. VITAL SIGNS: His height 6 feet, weight 186 pounds, BSA is 2.08, heart rate is 92 and regular, and bl ood pressure is 135/89. NECK: Supple. There is no adenopathy. LUNGS: Chest is clear bilaterally. HEART: Rhythm is regular. ABDOMEN: Soft and nontender. EXTREMITIES: There is no edema. He has a healed transmetatarsal and toe amputations. VASCULAR: He has palpable carotid, radial, and femoral pulses bilaterally. ASSESSMENT AND PLAN: An unfortunate 72-year-old gentleman with an extensive medical history. He has coronary artery disease and on catheterization has bypassable targets including LAD, diagonal, and P DA. His ejection fraction on ventriculogram today was approximately 30-40%. Due to his medical problems, the most worrisome of which include bilateral pulmonary nodules with med iastinal adenopathy and anemia with a history of alcoholic cirrhosis and potential varices/esophageal ulcerations. The patient has gotten all of his medical care at the [facility]. My initial recommendation w ould be for medical treatment of his coronary artery disease at this point. He will need workup for his anemia including EGD and colonoscopy. He also will need workup of his pulmonary nodules includin g a PET scan. This will help guide the potential for further coronary treatment down the road if ind eed his other medical problems can be adequately managed in the interim. With alcoholic cirrhosis be ing present, this is usually a hard stop for any further surgical intervention from a coronary standp oint.
[2017-07-26] MEDS ORDERED: Iopamidol 370 76% 100 ML VIAL ONE (13:25)
[2017-07-26] MEDS: Gabapentin 300 MG CAP PO SCH ×2 (16:21→20:37)
[2017-07-26] MEDS: HumaLOG 300 UNITS/3 ML VIAL SC PRN ×2 (18:05→20:53)
[2017-07-26] MEDS: Melatonin 3 MG TAB PO PRN (20:36)
[2017-07-26] MEDS: Atorvastatin Calcium 40 MG TAB PO SCH (20:37)
[2017-07-26] MEDS: Temazepam 15 MG CAP PO PRN (20:37)
[2017-07-26] MEDS: Insulin Detemir 100 UNITS/ML 30 UNITS in Pre-Filled Syringe 1 EACH SC SCH (20:37)
[2017-07-26] MEDS: traZODone HCl 50 MG TAB PO PRN (23:16)
[2017-07-27 05:19] LABS: #Eosinphils 0.3 thou/uL (0.0-0.7); #Lymphocytes 1.3 thou/uL (1.20-3.40); #Monocytes 0.7 thou/uL (0.11-0.59); #Neutrophils 3.1 thou/uL (1.40-6.50); %Basophils 0.4 % (0.0-1.0); %Eosinophils 6.1 % (0.0-10.0); %Lymphocytes 23.6 % (21.0-51.0); %Monocytes 13.2 % (0.0-10.0); %Neutrophils 56.7 % (42.0-75.0); Hemoglobin 10.8 g/dL (14.0-18.0); Mean Corpuscular Hemoglobin 28.4 pg (27.0-31.0); Mean Corpuscular Volume 86.3 fl (80.0-94.0); Mean Platelet Volume 7.7 fL (7.4-10.4); Platelet Count 248 thou/uL (130-400); RBC Distribution Width 16.1 % (11.5-14.5); White Blood Cell (WBC) Count 5.5 thou/uL (4.8-10.8)
[2017-07-27 05:32] LABS: Anion Gap 11 mmol/L (10-20); BUN (Urea Nitrogen) 29 mg/dL (8.4-25.7); Calc. Creatinine Clearance 70 mL/min (70-130); Calcium 8.3 mg/dL (7.8-10.44); Carbon Dioxide 24 mmol/L (23-31); Chloride 102 mmol/L (98-107); Estimated GFR-MDRD 63; Glucose 117 mg/dL (83-110); Potassium 3.7 mmol/L (3.5-5.1); Sodium 133 mmol/L (136-145)
[2017-07-27] MEDS: Nitroglycerin 2% Ointment 1 INCH/1 GM Packet TOP SCH ×3 (05:46→22:39)
--- NOTE | 2017-07-27 06:29 | PDOC.FM ---
- Subjective Subjective: Pt slept well overnight. Denies complaints. had a few episodes of hypotension leading to esmolol drip being held but currently giving. Rate controlled on 25 mcg/kg. Denies abdominal pain this AM. No chest pain. - Objective MAR Reviewed: Yes Vital Signs & Weight: Vital Signs (12 hours) Temp Pulse Resp 07/27/17 04:00 97.9 F 07/27/17 00:00 97.7 F 07/26/17 20:00 97.9 F 90 16 Weight Weight 84.8 kg Most Recent Monitor Data Heart Rate from ECG 87 NIBP 134/69 NIBP BP-Mean 87 Respiration from ECG 14 SpO2 91 I&O: 07/25/17 07/26/17 07/27/17 06:59 06:59 06:59 Intake Total 1370 1721 1440 Output Total 4350 2620 1600 Balance -2980 -899 -160 Result Diagrams: 07/27/17 04:43 07/27/17 04:43 <Ammon Hughes - Last Filed: 07/27/17 06:27> - Objective Vital Signs & Weight: Vital Signs (12 hours) Temp Pulse BP 07/28/17 08:31 74 150/97 H 07/28/17 08:00 98.1 F 07/28/17 04:00 98.6 F 07/28/17 00:00 98 F Weight Weight 186 lb 15.232 oz Most Recent Monitor Data Heart Rate from ECG 94 NIBP 155/79 NIBP BP-Mean 117 Respiration from ECG 18 SpO2 99 I&O: 07/27/17 07/28/17 07/29/17 06:59 06:59 06:59 Intake Total 1440 2191 360 Output Total 1600 1950 460 Balance -160 241 -100 Result Diagrams: 07/28/17 03:34 07/28/17 03:34 <You Chou - Last Filed: 07/28/17 11:43> Phys Exam - Physical Examination Constitutional: NAD HEENT: PERRLA, moist MMs Neck: supple, full ROM Respiratory: no wheezing, no rales, clear to auscultation bilateral Cardiovascular: no rub, irregular irregularly irregular, 3/6 systolic murmur Gastrointestinal: soft, non-tender, no distention, positive bowel sounds Musculoskeletal: no edema, pulses present Neurological: non-focal, moves all 4 limbs Psychiatric: normal affect, A&O x 3 Skin: no rash, normal turgor <Ammon Hughes - Last Filed: 07/27/17 06:27> Dx/Plan (1) Atrial fibrillation with rapid ventricular response Code(s): I48.91 - UNSPECIFIED ATRIAL FIBRILLATION Status: Acute Plan: A-fib w/ rvr, currently rate controlled on esmolol drip. [facility] pt w/ hx of paroxysmal a-fib. On 07/26, cardiac cath showed extensive disease but CV surgery recs for medical mgmt only as poor surgical candidate. Await cards rec this morning if can transition to orals and transfer out of CCU. Will cont. to monitor on tele. Anticoagulation recs per cardiology. Appreciate their assistance. (2) NSTEMI (non-ST elevated myocardial infarction) Code(s): I21.4 - NON-ST ELEVATION (NSTEMI) MYOCARDIAL INFARCTION Status: Acute Plan: Trops peaked at 12.09 w/ CK-MB at 13.3, with subsequent downtrend likely 2/2 demand from symptomatic anemia w/ severe underlying CAD. Cath with bypassable disease but CV surgery feels too high risk. Optimizing medical mgmt. Cont. ASA, beta afsaneh, statin, and nitro per cards recs. (3) Severe anemia Code(s): D64.9 - ANEMIA, UNSPECIFIED Status: Acute Plan: Concern for GI bleed as source w/ + FOBT and hx of coffee ground emesis and black stools 3 wks SOMMELIER. GI on board; will discuss case now as initial awaiting cards evaluation for NSTEMI. Appreciate recs. S/p transfusion of 4U PRBC w/ hbg stable at 10.8 this AM. 6.9 intially. Cont. to hold any anticoagulation. Cont. ASA for NSTEMI. Repeat FOBT negative. GI workup appears last part of evaluation ; discuss whether their desire is inpatient workup vs outpt. (4) GI bleed Code(s): K92.2 - GASTROINTESTINAL HEMORRHAGE, UNSPECIFIED Status: Acute Plan: Repeat FOBT negative. Hgb responding appropriately w/ transfusions. GI on board , appreciate recs. Hold anticoagulation. Hx severe alcohol abuse. (5) CHF (congestive heart failure) Code(s): I50.9 - HEART FAILURE, UNSPECIFIED Status: Acute QualifierTitle: Heart failure type: combined systolic and diastolic Heart failure chronicity: acute on chronic Qualified Code(s): I50.43 - Acute on chronic combined systolic (congestive) and diastolic (congestive) heart failure Plan: Mixed sdCHF EF 15-20% on echo. [facility] showed normal EF. Likely 2/2 acute insult from NSTEMI. Cont. w/ medical management per cards. Cath on 07/27 showed bypassable disease but comorbidities too high for surgery per CV surg. Continue fluid restriction. Down 6L in last 3 days. Optimize medical mgmt per cards. (6) Murmur, cardiac Code(s): R01.1 - CARDIAC MURMUR, UNSPECIFIED Status: Acute Plan: Known hx of murmur with severe on ECHO. (7) DM type 2 (diabetes mellitus, type 2) Status: Chronic QualifierTitle: Diabetes mellitus terminal carman insulin use: with intermediate use Diabetes mellitus complication status: without complication Qualified Code(s): E11.9 - Type 2 diabetes mellitus without complications; Z79.4 - prison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; Z79.4 - exterminator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; Z79.4 - exterminator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; Z79.4 - prison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 Plan: Continue current insulin regimen. Controlled. (8) HTN (hypertension) Code(s): I10 - ESSENTIAL (PRIMARY) HYPERTENSION Status: Chronic Plan: Will continue to monitor and add back on BP meds as indicated (9) CKD (chronic kidney disease) stage 2, GFR 60-89 ml/min Code(s): N18.2 - CHRONIC KIDNEY DISEASE, STAGE 2 (MILD) Status: Acute Plan: After watching Cr this admission, likely baseline CKD2. (10) Lung mass Code(s): R91.8 - OTHER NONSPECIFIC ABNORMAL FINDING OF LUNG FIELD Status: Acute Plan: 1.8 cm cavitary lesion w/ spiculated margins in pt w/ hx of tobacco abuse concerning for primary carcinoma. Reportedly this has been worked up at the [facility] already per patient. Per records has been stable for some time. TB work-up at [facility] negative. <Ammon Hughes - Last Filed: 07/27/17 06:27> Attending Addendum - Attending Addendum Date/Time: 07/28/17 1141 I personally evaluated the patient and discussed the management with Dr. Knapp I agree with the History, Examination, Assessment and Plan documented above with any addition or exceptions noted below. Medical Management on multi vessels CAD. Planning for discharge with out patinet PCP and Cardiology follow up. <You Chou - Last Filed: 07/28/17 11:43>
[2017-07-27] MEDS: Furosemide 40 MG TAB PO SCH (06:39)
[2017-07-27] MEDS: Pantoprazole 40 MG VIAL IVP SCH ×2 (08:49→20:57)
[2017-07-27] MEDS: Potassium Chloride 20 MEQ TAB PO SCH (08:50)
[2017-07-27] MEDS: Gabapentin 300 MG CAP PO SCH ×3 (08:50→20:56)
[2017-07-27] MEDS: Carvedilol 6.25 MG TAB PO SCH ×2 (08:51→16:35)
[2017-07-27] MEDS: HumaLOG 300 UNITS/3 ML VIAL SC SCH ×3 (08:52→16:55)
[2017-07-27] MEDS: Lisinopril 2.5 MG TAB PO SCH (08:52)
[2017-07-27] MEDS: Aspirin 325 mg Enteric Coated Tablet PO SCH (08:53)
[2017-07-27] MEDS ORDERED: Insulin Detemir 100 UNITS/ML 30 UNITS in Pre-Filled Syringe 1 EACH SC SCH (09:00)
[2017-07-27] MEDS: Doxycycline 100 MG CAP PO SCH ×2 (09:18→20:56)
[2017-07-27] MEDS: HumaLOG 300 UNITS/3 ML VIAL SC PRN ×2 (11:07→21:13)
[2017-07-27] MEDS: traMADol HCl 50 MG TAB PO PRN (15:10)
[2017-07-27] MEDS: Morphine 4 MG/ML VIAL SLOW IVP PRN ×2 (16:33→21:02)
[2017-07-27] MEDS ORDERED: Furosemide 40 MG/4 ML VIAL SLOW IVP SCH (19:00)
[2017-07-27] MEDS: Atorvastatin Calcium 40 MG TAB PO SCH (20:56)
[2017-07-27] MEDS: Insulin Detemir 100 UNITS/ML 30 UNITS in Pre-Filled Syringe 1 EACH SC SCH (20:57)
[2017-07-27] MEDS: traZODone HCl 50 MG TAB PO PRN (22:39)
[2017-07-28 04:19] LABS: #Eosinphils 0.3 thou/uL (0.0-0.7); #Lymphocytes 1.6 thou/uL (1.20-3.40); #Monocytes 0.8 thou/uL (0.11-0.59); #Neutrophils 2.8 thou/uL (1.40-6.50); %Basophils 0.6 % (0.0-1.0); %Eosinophils 5.8 % (0.0-10.0); %Lymphocytes 28.4 % (21.0-51.0); %Monocytes 14.7 % (0.0-10.0); %Neutrophils 50.6 % (42.0-75.0); Hemoglobin 11.1 g/dL (14.0-18.0); Mean Corpuscular HGB CONC 33.5 g/dL (32.0-36.0); Mean Corpuscular Volume 86.5 fl (80.0-94.0); Mean Platelet Volume 7.8 fL (7.4-10.4); Platelet Count 242 thou/uL (130-400); RBC Distribution Width 16.1 % (11.5-14.5); Red Blood Cell (RBC) Count 3.83 mill/uL (4.70-6.10); White Blood Cell (WBC) Count 5.5 thou/uL (4.8-10.8)
[2017-07-28 04:34] LABS: Anion Gap 11 mmol/L (10-20); BUN (Urea Nitrogen) 30 mg/dL (8.4-25.7); Calc. Creatinine Clearance 71 mL/min (70-130); Calcium 8.2 mg/dL (7.8-10.44); Carbon Dioxide 23 mmol/L (23-31); Chloride 102 mmol/L (98-107); Estimated GFR-MDRD 64; Glucose 143 mg/dL (83-110); Potassium 3.7 mmol/L (3.5-5.1); Sodium 132 mmol/L (136-145)
[2017-07-28] MEDS: Morphine 4 MG/ML VIAL SLOW IVP PRN ×3 (05:21→22:10)
[2017-07-28] MEDS: Nitroglycerin 2% Ointment 1 INCH/1 GM Packet TOP SCH ×3 (05:22→21:16)
--- NOTE | 2017-07-28 07:03 | PDOC.FM ---
- Subjective Subjective: Pt's only complaint is discomfort in L foot which has been fairly chronic since amputation in past. He slept well and is sitting up watching TV this AM. Endorses feeling much better. H/H improved to 11.1 today. Denies chest pain or palpitations. Denies cough, fever/chills. - Objective MAR Reviewed: Yes Vital Signs & Weight: Vital Signs (12 hours) Temp Pulse Resp Pulse Ox 07/28/17 04:00 98.6 F 07/28/17 00:00 98 F 07/27/17 20:00 97.9 F 74 18 97 Weight Weight 84.8 kg Most Recent Monitor Data Heart Rate from ECG 86 NIBP 114/54 NIBP BP-Mean 71 Respiration from ECG 13 SpO2 98 I&O: 07/27/17 07/28/17 07/29/17 06:59 06:59 06:59 Intake Total 1440 2191 Output Total 1600 1950 Balance -160 241 Result Diagrams: 07/28/17 03:34 07/28/17 03:34 <Ammon Hughes - Last Filed: 07/28/17 07:02> - Objective Vital Signs & Weight: Vital Signs (12 hours) Temp Pulse Resp BP Pulse Ox 07/28/17 08:31 74 150/97 H 07/28/17 08:00 98.1 F 74 18 96 07/28/17 04:00 98.6 F Weight Weight 186 lb 15.232 oz Most Recent Monitor Data Heart Rate from ECG 94 NIBP 155/79 NIBP BP-Mean 117 Respiration from ECG 18 SpO2 99 I&O: 07/27/17 07/28/17 07/29/17 06:59 06:59 06:59 Intake Total 1440 2191 360 Output Total 1600 1950 460 Balance -160 241 -100 Result Diagrams: 07/28/17 03:34 07/28/17 03:34 <You Chou - Last Filed: 07/28/17 12:00> Phys Exam - Physical Examination Constitutional: NAD HEENT: PERRLA, moist MMs Neck: supple, full ROM Respiratory: no rales, no rhonchi, clear to auscultation bilateral irregular rhythm, 3/6 systolic murmur Gastrointestinal: soft, non-tender, no distention Musculoskeletal: no edema, pulses present Neurological: non-focal, moves all 4 limbs Psychiatric: normal affect, A&O x 3 <Ammon Hughes - Last Filed: 07/28/17 07:02> Dx/Plan (1) Atrial fibrillation with rapid ventricular response Code(s): I48.91 - UNSPECIFIED ATRIAL FIBRILLATION Status: Acute Plan: A-fib w/ resolved RVR currently rate controlled on digoxin and low-dose Coreg[facility] w/ hx of paroxysmal a-fib. On 07/26, cardiac cath showed extensive disease but CV surgery recs for medical mgmt only as poor surgical candidate. Esmolol stopped yesterday and transferred out of CCU. Will talk to cards about possibility of d/c as nearing readiness. Likley no anticoagulation 2 /2 recent GI bleed; await recs per cardiology. Appreciate their assistance. (2) NSTEMI (non-ST elevated myocardial infarction) Code(s): I21.4 - NON-ST ELEVATION (NSTEMI) MYOCARDIAL INFARCTION Status: Acute Plan: Trops peaked at 12.09 w/ CK-MB at 13.3, with subsequent downtrend likely 2/2 demand from symptomatic anemia w/ severe underlying CAD. Cath with bypassable disease but CV surgery feels too high risk. Optimizing medical mgmt. Cont. 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 GI on board; will discuss case now as initial awaiting cards evaluation for NSTEMI. Appreciate recs. S/p transfusion of 4U PRBC w/ hbg stable at 10.8 this AM. 6.9 intially. Cont. to hold any anticoagulation. Cont. ASA for NSTEMI. Repeat FOBT negative. GI workup appears last part of evaluation ; discuss today whether their desire is inpatient workup vs outpt. (4) GI bleed Code(s): K92.2 - GASTROINTESTINAL HEMORRHAGE, UNSPECIFIED Status: Acute Plan: Initial FOBT positive with repeat negative. Hgb responding appropriately w/ transfusions. GI on board, appreciate recs. Holding anticoagulation. Hx severe alcohol abuse. (5) CHF (congestive heart failure) Code(s): I50.9 - HEART FAILURE, UNSPECIFIED Status: Acute QualifierTitle: Heart failure type: combined systolic and diastolic Heart failure chronicity: acute on chronic Qualified Code(s): I50.43 - Acute on chronic combined systolic (congestive) and diastolic (congestive) heart failure Plan: Mixed sdCHF EF 15-20% on echo. [facility]2017 [facility] showed normal EF. Likely 2/2 acute insult from NSTEMI. Cont. w/ medical management per cards. Cath on 07/27 showed bypassable disease but comorbidities too high for surgery per CV surg. Continue fluid restriction. Down 6L in last 4 days. Optimize medical mgmt per cards. (6) Murmur, cardiac Code(s): R01.1 - CARDIAC MURMUR, UNSPECIFIED Status: Acute Plan: Known hx of murmur with severe on ECHO. Discuss plan for meds on d/c with cards. 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 Increased to 33u levemir BID this AM. Will likely d/c on home regimen with TID premeal insulin. (8) HTN (hypertension) Code(s): I10 - ESSENTIAL (PRIMARY) HYPERTENSION Status: Chronic Plan: Will continue to monitor and add back on BP meds as indicated. (9) CKD (chronic kidney disease) stage 2, GFR 60-89 ml/min Code(s): N18.2 - CHRONIC KIDNEY DISEASE, STAGE 2 (MILD) Status: Acute Plan: After watching Cr this admission, may have CKD2 although no proteinuria present at this time. (10) Lung mass Code(s): R91.8 - OTHER NONSPECIFIC ABNORMAL FINDING OF LUNG FIELD Status: Acute Plan: 1.8 cm cavitary lesion w/ spiculated margins in pt w/ hx of tobacco abuse concerning for primary carcinoma. Reportedly this has been worked up at the [facility] already per patient. Per records has been stable for some time. TB work-up at [facility] negative. Started on abx yesterday in case of PNA although asymptomatic and afebrile during admission. Likely d/c on discharge and [facility] with [facility]. <Ammon Hughes - Last Filed: 07/28/17 07:02> Attending Addendum - Attending Addendum Date/Time: 07/28/17 1200 I personally evaluated the patient and discussed the management with . I agree with the History, Examination, Assessment and Plan documented above with any addition or exceptions noted below. continue current care with cardiology and GI services. <You Chou - Last Filed: 07/28/17 12:00>
[2017-07-28] MEDS: Furosemide 40 MG TAB PO SCH (08:15)
[2017-07-28] MEDS: Pantoprazole 40 MG VIAL IVP SCH ×2 (08:31→21:35)
[2017-07-28] MEDS: Gabapentin 300 MG CAP PO SCH ×3 (08:31→21:22)
[2017-07-28] MEDS: Lisinopril 2.5 MG TAB PO SCH (08:31)
[2017-07-28] MEDS: Carvedilol 6.25 MG TAB PO SCH ×2 (08:31→17:15)
[2017-07-28] MEDS: Aspirin 325 mg Enteric Coated Tablet PO SCH (08:31)
[2017-07-28] MEDS: HumaLOG 300 UNITS/3 ML VIAL SC SCH ×3 (08:32→17:00)
[2017-07-28] MEDS: PRE FILLED SC SCH ×2 (08:37→21:21)
[2017-07-28] MEDS: INSULIN DETEMIR SC SCH ×2 (08:37→21:21)
[2017-07-28] MEDS: Doxycycline 100 MG CAP PO SCH ×2 (08:38→21:22)
--- NOTE | 2017-07-28 11:09 | PRG ---
DATE OF SERVICE: 07/27/2017 SUBJECTIVE: Awake, alert and responsive, status post catheterization, events noted. He denies any coughing, chest pain or shortness of breath. OBJECTIVE: VITAL SIGNS: Sats are 98% on 2 liters, temperature 97, respirations 18, blood pressure 130/80. CHEST: No wheezing or crackles. CARDIAC: Normal S1, S2. No gallops. ABDOMEN: Soft, no masses. LABORATORY DATA: White count 5000, platelet count 248. Sodium 133. IMPRESSION: 1. Coronary artery disease. 2. Congestive heart failure. 3. left cavitary infiltrate seen on the CT with nonspecific lymph nodemediastinal nodes\ pneumonia on recent chest x-ray. 4. Alcohol abuse. 5. Cirrhosis. PLAN: The patient is to be transferred out of the ICU. Continue cardiac care. Continue diuretics, supportive care, empiric antibiotics. We will follow. DARREND
--- NOTE | 2017-07-28 11:52 | PRG ---
DATE OF SERVICE: 07/28/2017 SUBJECTIVE: This morning, he is awake, alert and responsive. Denies any difficulty breathing. OBJECTIVE: VITAL SIGNS: His blood pressure is 140/57, pulse is 87, respiration rate 18, sats are 100%. He is a febrile. CHEST: No wheezing or crackles. CARDIAC: Normal S1, S2, no gallops. ABDOMEN: Soft, no masses. LABORATORY DATA: White count 5000, hemoglobin and hematocrit 10 and 33, platelet count and electroly arsalan are normal. IMPRESSION: Atrial fibrillation, myocardial infarction, anemia, diabetes, hypertension, upper lung n odules. Further workup. PLAN: Continue neb treatment, supportive care. DISPOSITION: As per the primary care physician.
[2017-07-28] MEDS ORDERED: Artificial Tears 18 DROP/0.9 ML EA EYE PRN (12:46)
[2017-07-28] MEDS: traMADol HCl 50 MG TAB PO PRN (13:38)
[2017-07-28] MEDS: HumaLOG 300 UNITS/3 ML VIAL SC PRN ×2 (13:42→17:50)
[2017-07-28] MEDS: Atorvastatin Calcium 40 MG TAB PO SCH (21:21)
[2017-07-28] MEDS: Magnesium Oxide 400 MG TAB PO SCH (21:22)
[2017-07-28] MEDS: traZODone HCl 50 MG TAB PO PRN (22:49)
[2017-07-29] MEDS: Morphine 4 MG/ML VIAL SLOW IVP PRN (05:03)
[2017-07-29 05:19] LABS: #Basophils 0.1 thou/uL (0.0-0.2); #Eosinphils 0.3 thou/uL (0.0-0.7); #Lymphocytes 1.2 thou/uL (1.20-3.40); #Monocytes 0.8 thou/uL (0.11-0.59); #Neutrophils 2.7 thou/uL (1.40-6.50); %Basophils 1.5 % (0.0-1.0); %Eosinophils 6.4 % (0.0-10.0); %Monocytes 14.9 % (0.0-10.0); %Neutrophils 53.2 % (42.0-75.0); Hemoglobin 11.4 g/dL (14.0-18.0); Mean Corpuscular HGB CONC 33.7 g/dL (32.0-36.0); Mean Corpuscular Hemoglobin 29.6 pg (27.0-31.0); Mean Corpuscular Volume 87.9 fl (80.0-94.0); Mean Platelet Volume 7.8 fL (7.4-10.4); Platelet Count 241 thou/uL (130-400); RBC Distribution Width 16.1 % (11.5-14.5); Red Blood Cell (RBC) Count 3.84 mill/uL (4.70-6.10); White Blood Cell (WBC) Count 5.1 thou/uL (4.8-10.8)
[2017-07-29 05:38] LABS: Anion Gap 11 mmol/L (10-20); BUN (Urea Nitrogen) 23 mg/dL (8.4-25.7); Calc. Creatinine Clearance 79 mL/min (70-130); Calcium 8.6 mg/dL (7.8-10.44); Carbon Dioxide 25 mmol/L (23-31); Chloride 106 mmol/L (98-107); Estimated GFR-MDRD 73; Glucose 116 mg/dL (83-110); Potassium 3.6 mmol/L (3.5-5.1); Sodium 138 mmol/L (136-145)
[2017-07-29] MEDS: traMADol HCl 50 MG TAB PO PRN ×3 (06:14→14:28)
[2017-07-29] MEDS: Levothyroxine 175 MCG TAB PO SCH (06:14)
[2017-07-29] MEDS: Nitroglycerin 2% Ointment 1 INCH/1 GM Packet TOP SCH ×3 (06:17→20:26)
[2017-07-29] MEDS: Magnesium Oxide 400 MG TAB PO SCH ×2 (08:14→20:40)
[2017-07-29] MEDS: Carvedilol 6.25 MG TAB PO SCH ×2 (08:14→17:22)
[2017-07-29] MEDS: Aspirin 325 mg Enteric Coated Tablet PO SCH (08:14)
[2017-07-29] MEDS: Furosemide 40 MG TAB PO SCH (08:14)
[2017-07-29] MEDS: Lisinopril 2.5 MG TAB PO SCH (08:14)
[2017-07-29] MEDS: Gabapentin 300 MG CAP PO SCH ×3 (08:14→20:26)
[2017-07-29] MEDS: Doxycycline 100 MG CAP PO SCH ×2 (08:15→20:28)
[2017-07-29] MEDS: PRE FILLED SC SCH ×2 (08:15→20:29)
[2017-07-29] MEDS: HumaLOG 300 UNITS/3 ML VIAL SC SCH ×3 (08:15→16:44)
[2017-07-29] MEDS: INSULIN DETEMIR SC SCH ×2 (08:15→20:29)
--- NOTE | 2017-07-29 09:24 | PRG ---
DATE OF SERVICE: 07/28/2017 SUBJECTIVE: Mr. John Cruz, this morning is awake, alert. Denies any pain or shortness of breath. PHYSICAL EXAMINATION: VITAL SIGNS: Blood pressure 114/54, pulse 70, respiration rate 18, afebrile. NEUROLOGIC: He is awake, moves all four extremities. CHEST: Decreased breath sounds, no wheezing. CARDIAC: Normal S1, S2. No gallops. ABDOMEN: Soft, no masses. LABORATORY DATA: White count 5000, hemoglobin and hematocrit is 11 and 33, platelet count 242. Elec trolytes are normal. Sodium 132. IMPRESSION: Myocardial infarction, coronary artery disease, hypertension, diabetes, tobacco abuse, a bnormal x-ray. PLAN: Await input from primary care physician. Cardiology for disposition.
--- NOTE | 2017-07-29 09:35 | PDOC.FM ---
- Subjective Subjective: BETTIE overnight, sitting up in chair working on his computer this AM. No new complaints. VSS. - Objective MAR Reviewed: Yes Vital Signs & Weight: Vital Signs (12 hours) Temp BP 07/29/17 08:14 141/85 H 07/29/17 07:00 99.4 F 07/29/17 04:00 98.3 F 07/29/17 00:00 98.2 F Weight Weight 84.8 kg Most Recent Monitor Data Heart Rate from ECG 100 NIBP 109/59 NIBP BP-Mean 79 Respiration from ECG 14 SpO2 99 I&O: 07/28/17 07/29/17 07/30/17 06:59 06:59 06:59 Intake Total 2191 2920 Output Total 1950 1453 Balance 241 1467 Result Diagrams: 07/29/17 04:50 07/29/17 04:50 <Neeraj Trevino - Last Filed: 07/29/17 09:33> - Objective Vital Signs & Weight: Vital Signs (12 hours) Temp Pulse Resp BP Pulse Ox 07/29/17 08:14 141/85 H 07/29/17 08:00 99.4 F 100 18 98 07/29/17 07:00 99.4 F 07/29/17 04:00 98.3 F 07/29/17 00:00 98.2 F Weight Weight 84.8 kg Most Recent Monitor Data Heart Rate from ECG 100 NIBP 109/59 NIBP BP-Mean 79 Respiration from ECG 14 SpO2 99 I&O: 07/28/17 07/29/17 07/30/17 06:59 06:59 06:59 Intake Total 2191 2920 720 Output Total 1950 1453 Balance 241 1467 720 Result Diagrams: 07/29/17 04:50 07/29/17 04:50 <Mireille Castillo - Last Filed: 07/29/17 10:26> Phys Exam - Physical Examination Constitutional: NAD HEENT: PERRLA, moist MMs Neck: no nodes, no JVD Respiratory: no wheezing, clear to auscultation bilateral Cardiovascular: RRR 3/6 systolic ejection murmu Gastrointestinal: soft, positive bowel sounds Musculoskeletal: no edema, pulses present Psychiatric: A&O x 3 Skin: cap refill <2 seconds <Neeraj Trevino - Last Filed: 04/09/18 09:33> Dx/Plan (1) NSTEMI (non-ST elevated myocardial infarction) Code(s): I21.4 - NON-ST ELEVATION (NSTEMI) MYOCARDIAL INFARCTION Status: Acute Plan: Trops peaked at 12.09 w/ CK-MB at 13.3, with subsequent downtrend Likely 2/2 demand from symptomatic anemia w/ severe underlying CAD Pt w/ [facility] to get [facility] Cont. w/ ASA, beta afsaneh, statin, and nitro per cards recs No anticoagulation at this time 2/2 concern for GI bleed and his anemia. Outpatient EGD per GI Pt not a candidate for CABG per CV surgery Pt optimized on medical management per cardiology Will discuss possible life vest w/ cardiology today CM consult for home health placed (2) Atrial fibrillation with rapid ventricular response Code(s): I48.91 - UNSPECIFIED ATRIAL FIBRILLATION Status: Resolved Plan: hx of paroxysmal A-fib No oral anticoagulation 2/2 GI bleed Back in NSR Cont. to monitor (3) Severe anemia Code(s): D64.9 - ANEMIA, UNSPECIFIED Status: Resolved Plan: Concern for GI bleed as source w/ + FOBT and self endorses hx of cofee ground emesis and black stools 3 wks ago GI on board appreciate recs S/p transfusion of 4U PRBC w/ hbg to 10.9 this AM stable from 6.9 intially Outpatient follow-up w/ EGD per GI w/ no continued active bleeding and stable hgb (4) GI bleed Code(s): K92.2 - GASTROINTESTINAL HEMORRHAGE, UNSPECIFIED Status: Resolved Plan: Repeat FOBT negative Hgb responding appropriately w/ transfusions GI on board, appreciate recs Hold anticoagulation (5) CHF (congestive heart failure) Code(s): I50.9 - HEART FAILURE, UNSPECIFIED Status: Acute QualifierTitle: Heart failure type: combined systolic and diastolic Heart failure chronicity: acute on chronic Qualified Code(s): I50.43 - Acute on chronic combined systolic (congestive) and diastolic (congestive) heart failure Plan: mixed sdCHF EF 15-20% on echo New [facility]2017 [facility] w/ normal EF at this time Likely 2/2 acute insult from NSTEMI cont. 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 regimen w/ SSI available w/ AC/HS accuchecks (8) HTN (hypertension) Code(s): I10 - ESSENTIAL (PRIMARY) HYPERTENSION Status: Chronic Plan: Will hold all BP meds besides beta afsaneh in setting of NSTEMI 2/2 concerns for hypotension BP significantly improved from admission s/p transfusion of PRBC Will continue to monitor and add back on BP meds as indicated (9) Lung mass Code(s): R91.8 - OTHER NONSPECIFIC ABNORMAL FINDING OF LUNG FIELD Status: Acute Plan: 1.8 cm cavitary lesion w/ spiculated margins in pt w/ hx of tobacco abuse concerning for primary carcinoma Reportedly this has been worked up at the [facility] already per patient Per records has been stable for some time. TB work-up at [facility] negative Will continue to monitor (10) CODY (acute kidney injury) Code(s): N17.9 - ACUTE KIDNEY FAILURE, UNSPECIFIED Status: Resolved Plan: Improved renal function s/p volume administration w/ PRBC Likely back to patient's baseline w/ underlying CKD Will continue to monitor <Neeraj Trevino - Last Filed: 07/29/17 09:33> Attending Addendum - Attending Addendum Date/Time: 07/29/17 1016 I personally evaluated the patient and discussed the management with Dr. Trevino I agree with the History, Examination, Assessment and Plan documented above with any addition or exceptions noted below. 72 yo male with multiple medical conditions admitted for NSTEMI and GI bleeding. HD#6 Patient doing well this AM. No complaints or complications overnight. VS, labs and imaging reviewed. Have discussed case with consultants. 1. NSTEMI: 3 vessel CAD. Needs CABG. CV surg has deferred until work up for GI bleeding. Will have procedure scheduled at [facility]. Continue full dose ASA, statin, BB, prn nitro. Home health for d/c. 2. rEF HF: 15 to 20%. [facility] evaluation today. Home health for d/c. Continue ASA, BB, ACEI, statin. Would benefit from Enresto. [facility]. 3. GI bleeding: Has requested endo to be done at [facility]. No further workup here scheduled. CABG on hold till GI workup complete. Patient to follow up. Hold anticoags. Precautions discussed. s/p 4 units pRBCs. H&H improved to . 4. A. fib: Rate controlling agents. Hold anticoags. On full dose ASA. Precautions discussed. Needs GI workup. 5. Lung mass: Has been worked up at [facility]. Follow up. Stable for d/c. Awaiting home health and [facility]vest approval. Per consultants stable. Needs to follow up with [facility] to complete treatment and workup. Pam <Mireille Castillo - Last Filed: 07/29/17 10:26>
[2017-07-29] MEDS: HumaLOG 300 UNITS/3 ML VIAL SC PRN ×2 (11:10→20:47)
--- NOTE | 2017-07-29 13:23 | PDOC.CTH ---
<Rekha Benitez - Last Filed: 07/29/17 13:24> Cardiology Progress Note - Subjective The pt seen and examined. No overnight events. No Cardiac complaints. - Objective Vital Signs Temp Pulse Resp BP Pulse Ox 07/29/17 11:00 98.6 F 07/29/17 08:14 141/85 H 07/29/17 08:00 99.4 F 100 18 98 07/29/17 07:00 99.4 F 07/29/17 04:00 98.3 F Weight 186 lb 15.232 oz 07/28/17 07/29/17 07/30/17 06:59 06:59 06:59 Intake Total 2191 2920 1200 Output Total 1950 1453 Balance 241 1467 1200 - Physical Examination General/Neuro: alert & oriented x3 Neck: no JVD present Lungs: CTA (diminished at bases) Heart: RRR Abdomen: soft Extremities: other: (Lt toe amputation) - Telemetry Telemetry Rhythm: SR - Labs Result Diagrams: 07/29/17 04:50 07/29/17 04:50 Troponin/CKMB CK-MB (CK-2) 8.6 ng/mL (0-6.6) H* 07/24/17 04:50 Troponin I 10.309 ng/mL (< 0.028) H* 07/24/17 04:50 - Assessment/Plan 1. NSTEMI - Severe 3V CAD with medical tx only; monitor on tele; 2. Afib with RVR - Rate controlled with Coreg 6.25mg BID and ASA 325mg daily; Need outpt GI consult for EGD? Cont. to monitor on tele 3. Acute on Chronic Combined HF - Stable with Coreg 6.25mg BID, Lasix 40mg PO daily, and Lisinopril 2.5mg qd. D/c home with [facility]. 4. Severe Anemia - Hx of 3 PRBC tx; Hgb is stable; ont. to monitor 5. HTN - cont. monitor 6. DM type 2 - on ACHS BG with SS insulin 7. PVD with hxof all LT digits and 2 on Rt toe amputation - stable; 8. Hx of Liver dysfunction 2ndary to hx fo ETOH abuse - 9. Lung mass with 1.8 cm cavitary lesion w/ spiculated margins - [facility] 10. Ex-smoker, quit in 04/2017 - Smoking cessation education given to the pt MAR reviewed * Echo on 07/23/17 showed EF 15-20%, grade I diastolic dysfunction, mild LVH, mod dilated LA, normal RA, mild-mod MR, mild AR, mild TR, mild OK and severe with valve area of 0.83 sq cm. * Cath showed servere 3V CAD with medical tx only. EF 35-40%. * From Cardiac standpoint, the pt is stable to d/c home with [facility]. The pt will f/u with Sr. Operations Manager within 2-4wks. Review of Systems - Review of Systems Constitutional: reports: no symptoms reported EENTM: reports: no symptoms reported Respiratory: reports: no symptoms reported Cardiac (ROS): reports: no symptoms reported ABD/GI: reports: no symptoms reported : reports: no symptoms reported <Sherie Amin - Last Filed: 07/29/17 16:12> Cardiology Progress Note - Objective Vital Signs Temp Pulse Resp BP Pulse Ox 07/29/17 11:00 98.6 F 07/29/17 08:14 141/85 H 07/29/17 08:00 99.4 F 100 18 98 07/29/17 07:00 99.4 F Weight 186 lb 15.232 oz 07/28/17 07/29/17 07/30/17 06:59 06:59 06:59 Intake Total 2191 2920 1440 Output Total 1950 1453 Balance 241 1467 1440 - Labs Result Diagrams: 07/29/17 04:50 07/29/17 04:50 Troponin/CKMB CK-MB (CK-2) 8.6 ng/mL (0-6.6) H* 07/24/17 04:50 Troponin I 10.309 ng/mL (< 0.028) H* 07/24/17 04:50 - Assessment/Plan pt. seen and eval. by me. I agree with the A/P by the BUSINESS MANAGEMENT ANALYST. Plan for d/c todat with [facility] due to severe CMY. [facility] Further eval. of the pulmonary nodules would be advisable. if these are not malignant with mets., then he may be a candidate for CABG if his pulmonary status will tolerate anesthesia.
--- NOTE | 2017-07-29 15:28 | PRG ---
DATE OF SERVICE: 07/29/2017 SUBJECTIVE: Mr. Cruz doing well over the weekend. Surgery has been put on hold. The notes I am told reflected that he had declined a workup of a shuul e. He tells me that he had pulmonary nodule followed for 2 years and there was no growth. I told hi m he needed no more imaging procedures. He has bilateral linear infiltrates at his apices. The one on the right clearly has more appearance of scar than malignant process. The lesion at the left apex is more nodular. Without old films, it is impossible to know whether or not this is unchanged in size. It only measures 18 mm. It has a sm all central cavity, but it is very smooth on its edges. There is an oblong subpleural density graduate school dean iorly on the right that looks benign, measures 15 mm in length, but only about 4 mm in anterior poste rior dimension. His lungs are clear. Heart; regular rhythm. Abdomen is soft. His hemoglobin has been stable over the weekend. We still do not have an explanation for the hemoglobin of 6.9 at presentation. I have consulted [facility]. Outpatient PET imaging would help workup these nodules and certainly old films would be helpful as we ll. It is unclear how significant his liver dysfunction is. Did have a slightly decreased albumin on presentation with an albumin of 3.1 on 6th and 3.5 on the 3r d. There is no ProTime or PTT measured. He was initially anticoagulated when he came in with his EKG abnormalities. This has been held. IMPRESSION: 1. Coronary artery disease. 2. Bilateral pulmonary nodules. The only one in my opinion, this could be suspicious. It would be the one at the left apex, but all films will be needed. He swears that he was told he did not have a nything on his CT scan that needed to be followed after 2 years of follow up. 3. History of liver dysfunction. 4. Chronic obstructive pulmonary disease. PLAN: Gastroenterology input since he lives in [place] and is 100 miles away from care here. It would be nice to have a better understanding why he was so anemic where the knop varices were to jaya me.
[2017-07-29 15:45] LABS: INR-International Normal Ratio 1.1; Prothrombin Time 14.1 SEC (12.0-14.7)
[2017-07-29] MEDS: Atorvastatin Calcium 40 MG TAB PO SCH (20:26)
[2017-07-30] MEDS: traZODone HCl 50 MG TAB PO PRN (01:09)
[2017-07-30 05:25] LABS: #Eosinphils 0.2 thou/uL (0.0-0.7); #Lymphocytes 1.3 thou/uL (1.20-3.40); #Monocytes 0.7 thou/uL (0.11-0.59); #Neutrophils 2.5 thou/uL (1.40-6.50); %Basophils 0.8 % (0.0-1.0); %Eosinophils 4.9 % (0.0-10.0); %Lymphocytes 27.4 % (21.0-51.0); %Monocytes 14.8 % (0.0-10.0); %Neutrophils 52.1 % (42.0-75.0); Hemoglobin 10.7 g/dL (14.0-18.0); Mean Corpuscular HGB CONC 33.1 g/dL (32.0-36.0); Mean Corpuscular Hemoglobin 28.4 pg (27.0-31.0); Mean Corpuscular Volume 85.7 fl (80.0-94.0); Mean Platelet Volume 8.1 fL (7.4-10.4); Platelet Count 230 thou/uL (130-400); Red Blood Cell (RBC) Count 3.77 mill/uL (4.70-6.10); White Blood Cell (WBC) Count 4.8 thou/uL (4.8-10.8)
[2017-07-30 05:28] LABS: Anion Gap 8 mmol/L (10-20); BUN (Urea Nitrogen) 20 mg/dL (8.4-25.7); Calc. Creatinine Clearance 84 mL/min (70-130); Calcium 8.5 mg/dL (7.8-10.44); Carbon Dioxide 28 mmol/L (23-31); Chloride 104 mmol/L (98-107); Estimated GFR-MDRD 78; Glucose 163 mg/dL (83-110); Potassium 3.8 mmol/L (3.5-5.1); Sodium 136 mmol/L (136-145)
[2017-07-30] MEDS: traMADol HCl 50 MG TAB PO PRN (05:32)
[2017-07-30] MEDS: Levothyroxine 175 MCG TAB PO SCH (05:33)
[2017-07-30] MEDS: Nitroglycerin 2% Ointment 1 INCH/1 GM Packet TOP SCH (05:34)
[2017-07-30] MEDS: Furosemide 40 MG TAB PO SCH (05:41)
[2017-07-30] MEDS: HumaLOG 300 UNITS/3 ML VIAL SC PRN ×2 (06:09→11:33)
--- NOTE | 2017-07-30 07:38 | ADD-PRG ---
DATE OF SERVICE: 07/29/2017 Records were accessed and it appears that Dr. Peñaloza has done a colonoscopy on Mr. Cruz in the l ast few years and an EGD at the end of 2017. There were no varices. Probably no further workup is i ndicated at this point in time from a gastroenterology standpoint. I ran this by one of the Gastroen terology consultants, who was walking down the xie and he feels that this can be followed up by Dr. Peñaloza as an outpatient or followed up at the [facility].
[2017-07-30] MEDS: Gabapentin 300 MG CAP PO SCH ×2 (08:27→15:24)
[2017-07-30] MEDS: Carvedilol 6.25 MG TAB PO SCH (08:28)
[2017-07-30] MEDS: Magnesium Oxide 400 MG TAB PO SCH (08:28)
[2017-07-30] MEDS: Lisinopril 2.5 MG TAB PO SCH (08:28)
[2017-07-30] MEDS: Aspirin 325 mg Enteric Coated Tablet PO SCH (08:28)
[2017-07-30] MEDS: HumaLOG 300 UNITS/3 ML VIAL SC SCH ×2 (08:29→11:32)
[2017-07-30] MEDS: Doxycycline 100 MG CAP PO SCH (08:29)
[2017-07-30] MEDS: PRE FILLED SC SCH (08:31)
[2017-07-30] MEDS: INSULIN DETEMIR SC SCH (08:31)
--- NOTE | 2017-07-30 08:35 | PDOC.FM ---
- Subjective Subjective: BETTIE overnight, VSS, afebrile. Awaiting to be fit with life vest. Pt states he is ready to go home. - Objective MAR Reviewed: Yes Vital Signs & Weight: Vital Signs (12 hours) Temp Pulse Ox 07/30/17 04:00 98.1 F 07/30/17 02:37 95 07/30/17 00:00 98.2 F Weight Weight 84.776 kg Most Recent Monitor Data Heart Rate from ECG 79 NIBP 150/72 NIBP BP-Mean 114 Respiration from ECG 14 SpO2 99 I&O: 07/29/17 07/30/17 07/31/17 06:59 06:59 06:59 Intake Total 2920 3170 Output Total 1453 850 Balance 1467 2320 Result Diagrams: 07/30/17 04:48 07/30/17 03:30 <Neeraj Trevino - Last Filed: 07/30/17 08:33> - Objective Vital Signs & Weight: Vital Signs (12 hours) Temp 07/30/17 16:00 98.7 F 07/30/17 12:00 98.4 F Weight Weight 84.776 kg Most Recent Monitor Data Heart Rate from ECG 83 NIBP 141/82 NIBP BP-Mean 104 Respiration from ECG 14 SpO2 99 I&O: 07/29/17 07/30/17 07/31/17 06:59 06:59 06:59 Intake Total 2920 3170 1080 Output Total 1453 850 800 Balance 1467 2320 280 Result Diagrams: 07/30/17 04:48 07/30/17 03:30 <Hosea Sparks - Last Filed: 07/30/17 23:02> Phys Exam - Physical Examination Constitutional: NAD HEENT: PERRLA, moist MMs Neck: no nodes, no JVD Respiratory: no wheezing, clear to auscultation bilateral Cardiovascular: RRR 3/6 systolic ejection murmur Gastrointestinal: soft, non-tender, no distention Musculoskeletal: no edema Neurological: non-focal, moves all 4 limbs Psychiatric: normal affect, A&O x 3 Skin: cap refill <2 seconds <Neeraj Trevino - Last Filed: 07/30/17 08:33> Dx/Plan (1) NSTEMI (non-ST elevated myocardial infarction) Code(s): I21.4 - NON-ST ELEVATION (NSTEMI) MYOCARDIAL INFARCTION Status: Acute Plan: Trops peaked at 12.09 w/ CK-MB at 13.3, with subsequent downtrend Likely 2/2 demand from symptomatic anemia w/ severe underlying CAD Pt w/ [facility] Cont. w/ ASA, beta afsaneh, statin, and nitro per cards recs No anticoagulation at this time 2/2 concern for GI bleed and his anemia. Outpatient EGD per GI. Last EGD negative for varices end of 2016 and normal colonscopy a few years ago. Pt not a candidate for CABG per CV surgery Pt optimized on medical management per cardiology CM consult for home health placed Pt awaiting life vest fitting w/ likely d/c home w/ [facility] (2) Atrial fibrillation with rapid ventricular response Code(s): I48.91 - UNSPECIFIED ATRIAL FIBRILLATION Status: Resolved Plan: hx of paroxysmal A-fib No oral anticoagulation 2/2 GI bleed Back in NSR Cont. to monitor (3) Severe anemia Code(s): D64.9 - ANEMIA, UNSPECIFIED Status: Resolved Plan: Concern for GI bleed as source w/ + FOBT and self endorses hx of cofee ground emesis and black stools 3 wks ago GI on board appreciate recs S/p transfusion of 4U PRBC w/ hbg to 10.9 this AM stable from 6.9 intially Outpatient follow-up w/ EGD per GI w/ no continued active bleeding and stable hgb (4) GI bleed Code(s): K92.2 - GASTROINTESTINAL HEMORRHAGE, UNSPECIFIED Status: Resolved Plan: Repeat FOBT negative Hgb responding appropriately w/ transfusions GI on board, appreciate recs Hold anticoagulation (5) CHF (congestive heart failure) Code(s): I50.9 - HEART FAILURE, UNSPECIFIED Status: Acute QualifierTitle: Heart failure type: combined systolic and diastolic Heart failure chronicity: acute on chronic Qualified Code(s): I50.43 - Acute on chronic combined systolic (congestive) and diastolic (congestive) heart failure Plan: mixed sdCHF EF 15-20% on echo New [facility]2017 [facility] w/ normal EF at this time Likely 2/2 acute insult from NSTEMI cont. w/ medical management per cards Awaiting fitting of Life vest w/ likely d/c home today (6) Murmur, cardiac Code(s): R01.1 - CARDIAC MURMUR, UNSPECIFIED Status: Acute Plan: Likely 2/2 severe aortic stenosis seen on echocardiogram Pt has known hx of murmur (7) DM type 2 (diabetes mellitus, type 2) Status: Chronic QualifierTitle: Diabetes mellitus halfway insulin use: with dedicated intermodal truck driver use Diabetes mellitus complication status: without complication Qualified Code(s): E11.9 - Type 2 diabetes mellitus without complications; Z79.4 - medical terminologist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; Z79.4 - medical terminologist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; Z79.4 - medical terminologist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; Z79.4 - custodial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 Plan: Good control on current regimen Cont. regimen w/ SSI available w/ AC/HS accuchecks (8) HTN (hypertension) Code(s): I10 - ESSENTIAL (PRIMARY) HYPERTENSION Status: Chronic Plan: Will hold all BP meds besides beta afsaneh in setting of NSTEMI 2/2 concerns for hypotension BP significantly improved from admission s/p transfusion of PRBC Will continue to monitor and add back on BP meds as indicated (9) Lung mass Code(s): R91.8 - OTHER NONSPECIFIC ABNORMAL FINDING OF LUNG FIELD Status: Chronic Plan: 1.8 cm cavitary lesion w/ spiculated margins in pt w/ hx of tobacco abuse concerning for primary carcinoma Reportedly this has been worked up at the [facility] already per patient Per records has been stable for some time. TB work-up at [facility] negative Pt has apparently also had a PET scan which was negative Will continue to monitor (10) CODY (acute kidney injury) Code(s): N17.9 - ACUTE KIDNEY FAILURE, UNSPECIFIED Status: Resolved Plan: Improved renal function s/p volume administration w/ PRBC Likely back to patient's baseline w/ underlying CKD Will continue to monitor <Neeraj Trevino - Last Filed: 07/30/17 08:33> Attending Addendum - Attending Addendum Date/Time: 07/30/17 5724 I personally evaluated the patient in CCU A-11, and discussed the management with Dr. Filipe Trevino. I agree with the History, Examination, Assessment and Plan documented above with any addition or exceptions noted below. V/S Stable normal. He feels fine and ready to go home. Lungs: CTA, Cor: RRR, no murmur. Abd: Soft Non-tender, no masses. Ext: No C/E/C/P. A: Stable for discharge as soon as Life Vest arrives. Follow up with Cardiology as outpatient. No anticoagulation due to risk of repeat GI bleed. MD Geno <Hosea Sparks - Last Filed: 07/30/17 23:02>
[2017-07-30 08:38] VITALS: BP 158/83
--- NOTE | 2017-07-30 08:47 | PDOC.CTH ---
Cardiology Progress Note - Subjective The pt seen and examined. No overnight events. No cardiac complaints. He is waiting for LifeVest. - Objective Vital Signs Temp Pulse BP Pulse Ox 07/30/17 08:28 92 158/83 H 07/30/17 07:00 98.5 F 07/30/17 04:00 98.1 F 07/30/17 02:37 95 07/30/17 00:00 98.2 F Weight 186 lb 14.4 oz 07/29/17 07/30/17 07/31/17 06:59 06:59 06:59 Intake Total 2920 3170 480 Output Total 1453 850 300 Balance 1467 2320 180 - Physical Examination General/Neuro: alert & oriented x3 Neck: no JVD present Lungs: CTA Heart: RRR Abdomen: soft Extremities: other: (diminished pulses in BLE) - Telemetry Telemetry Rhythm: SR - Labs Result Diagrams: 07/30/17 04:48 07/30/17 03:30 Troponin/CKMB CK-MB (CK-2) 8.6 ng/mL (0-6.6) H* 07/24/17 04:50 Troponin I 10.309 ng/mL (< 0.028) H* 07/24/17 04:50 - Assessment/Plan 1. NSTEMI - Severe 3V CAD with medical tx only; if the pulmonary nodules are not malignant, then he may be a candidate for CABG if his pulmonary status will tolerate anesthesia. Monitor on tele; 2. Afib with RVR - Rate controlled with Coreg 6.25mg BID and ASA 325mg daily; Need outpt GI consult for EGD? although the pt's ECG result in 2016 showed negative; Cont. to monitor on tele 3. Acute on Chronic Combined HF - Stable with Coreg 6.25mg BID, Lasix 40mg PO daily, and Lisinopril 2.5mg qd. D/c home with LifeVest. 4. Severe Anemia - Hx of 3 PRBC tx; Hgb is stable; ont. to monitor 5. HTN - Increase Lisinopril from 2.5mg to 5mg daily; cont. monitor 6. DM type 2 - on ACHS BG with SS insulin 7. PVD with hxof all LT digits and 2 on Rt toe amputation - stable; need further eval as outpt at [facility] 8. Hx of Liver dysfunction 2ndary to hx fo ETOH abuse - 9. Lung mass with 1.8 cm cavitary lesion w/ spiculated margins - [facility] 10. Ex-smoker, quit in 04/2017 - Smoking cessation education given to the pt MAR reviewed * Echo on 07/23/17 showed EF 15-20%, grade I diastolic dysfunction, mild LVH, mod dilated LA, normal RA, mild-mod MR, mild AR, mild TR, mild CA and severe with valve area of 0.83 sq cm. * Cath showed servere 3V CAD with medical tx only. EF 35-40%. * From Cardiac standpoint, the pt is stable to d/c home with LifeVest. The pt will f/u with Beekeeper at [facility] within 2-4wks. * Echo is ordered today to recheck his EF. If EF> 35%, The pt does not qualify for LifeVest. The pt will f/u with [facility] at [facility] within 2-4wks. Review of Systems - Review of Systems Constitutional: reports: no symptoms reported EENTM: reports: no symptoms reported Respiratory: reports: no symptoms reported Cardiac (ROS): reports: no symptoms reported ABD/GI: reports: no symptoms reported : reports: no symptoms reported Musculoskeletal: reports: no symptoms reported
[2017-07-30] MEDS ORDERED: Lisinopril 5 MG TAB PO SCH (09:00)
[2017-07-30] MEDS ORDERED: Lisinopril 2.5 MG TAB PO SCH (09:30)
[2017-07-30 16:02] VITALS: TEMP 98.7
--- NOTE | 2017-07-30 16:13 | PRG ---
DATE OF SERVICE: 07/30/2017 SUBJECTIVE: Mr. Cruz is in no distress. OBJECTIVE: VITAL SIGNS: He is afebrile, heart rates is in the 80s, blood pressure 141/82, still waiting for Lif eVest. LUNGS: Clear. HEART: Regular rhythm. ABDOMEN: Soft. LABORATORY DATA: White count 4.8, hemoglobin 10.7, platelets 230. Sodium 136, potassium 3.8, chlori de 104, bicarbonate 25, BUN 20, creatinine 0.95. IMPRESSION: 1. Cardiomyopathy with coronary disease. Operative procedures on hold. 2. ? obstructive lung disease. He needs pulmonary function tests to quantitate his pulmonary functi on. 3. Anemia, most likely secondary to gastrointestinal blood loss. He has no history of varices on re cent endoscopy. He is up to date on his colonoscopy screening. His liver synthetic capacity is fine . His INR was 1.1 yesterday. 4. History of pulmonary nodules. He was told his nodules are stable. He no longer needed followup CTs. I will be happy to [facility] and compared to his CT here. He had a CT angiogram d one on the 07/23/2017, which gives a good picture of the nodules and this can be compared to old film s. I have given him my phone number if he wishes to make an appointment. He is welcome.
--- NOTE | 2017-07-31 11:07 | DIS-2 ---
DATE OF ADMISSION: 07/23/2017 DATE OF DISCHARGE: 07/30/2017 ADMITTING ATTENDING: Yakov Ferrer MD DISCHARGE ATTENDING: Hosea Sparks MD RESIDENT: Neeraj Trevino MD CONSULTATIONS: 1. Dr. Amin, Cardiology. 2. Dr. Peñaloza, Gastroenterology. 3. Dr. De, Pulmonology Critical Care. 4. Dr. Tru Rose, Cardiovascular Surgery. PROCEDURES: 1. Transfusion of packed red blood cells x4. 2. Cardiac catheterization with findings of a 3-vessel disease. 3. Echocardiogram with findings of EF 15-20% and severe aortic stenosis; however, this was repeated prior to discharge with EF 35-40% per Cardiology for evaluation of LifeVest purposes. 4. CT of abdomen and pelvis showing no evidence of pulmonary emboli with a left upper lobe cavitary lesion and right upper lobe scarring and spiculated pleural basilar nodule densities posteriorly. PRIMARY DIAGNOSES: 1. [id number]-CY-[id number] elevation myocardial infarction secondary to 3-vessel coronary artery disease. 2. Symptomatic anemia. 3. Gastrointestinal bleed. 4. Paroxysmal atrial fibrillation with rapid ventricular rate. SECONDARY DIAGNOSES: 1. Chronic kidney disease 2. 2. Hypertension. 3. Severe aortic stenosis. 4. Type 2 diabetes mellitus. 5. Alcohol abuse. 6. History of tobacco abuse. DISCHARGE MEDICATIONS: 1. Aspirin 325 mg p.o. daily. 2. Coreg 6.25 mg p.o. b.i.d. with meals. 3. Gabapentin 300 mg p.o. t.i.d. 4. Levemir 33 units subcu a.m. 5. Levemir 33 units subcu at bedtime. 6. Lisinopril 2.5 mg p.o. daily. 7. Protonix 40 mg p.o. b.i.d. 8. Ferrous sulfate 325 mg p.o. b.i.d. 9. [place] 1 tab p.o. q.8 hours as needed for pain. 10. Vitamin D2 of 50,000 units p.o. q.7 days. 11. Cymbalta 30 mg p.o. daily. 12. Santyl 1 inch routinely. 13. Clonidine 0.1 mg p.o. q.4 hours as needed for SBP greater than 180. 14. Camphor 1 application topical as needed for pain. 15. Lipitor 40 mg p.o. daily. 16. Albuterol 2 puffs inhalation q.i.d. as needed for shortness of breath or wheezing. 17. Humira pen 40 mg subcu every 14 days. 18. Tylenol 650 mg p.o. q.6 hours as needed for pain. 19. Trazodone 100 mg p.o. at bedtime as needed for insomnia. 20. Tramadol 100 mg p.o. t.i.d. as needed for pain. 21. Thiamine 100 mg p.o. daily. 22. Stiolto Respimat inhalation spray, 1 spray p.o. daily. 23. Pantoprazole 40 mg p.o. daily. 24. Metformin 250 mg p.o. q.a.m. with breakfast. 25. Ocuflox 0.3% ophthalmic solution 1 drop each eye q.i.d. 26. Mag oxide 400 mg p.o. b.i.d. 27. Levothyroxine sodium 175 mcg p.o. daily. 28. Insulin aspart 1 unit subcu 5 times daily as needed for hyperglycemia per sliding scale. 29. Lasix 40 mg p.o. daily. DISCONTINUED MEDICATIONS: 1. Propranolol 20 mg p.o. t.i.d. 2. Lisinopril 40 mg p.o. b.i.d. 3. Warfarin 7.5 mg p.o. daily. HISTORY OF PRESENT ILLNESS AND HOSPITAL COURSE: The patient is a 72-year-old gentleman with past medical history of paroxysmal atrial fibrillation and upper lobe nodule that [facility] who was [facility] from the [facility] approximately 3 weeks prior, status post amputation for left foot osteomyelitis where he was also diagnosed with paroxysmal atrial fibrillation and started on warfarin, who presents to the ER after being called by his [facility] doctor for a critical lab value for a low hemoglobin count. The patient did not come immediately as he lived down in [place] which is very far away from the ER or Hospital. However, he began experiencing chest tightness and shortness of breath which prompted her ER evaluation. Upon arrival to the ER, patient's initial hemoglobin was 6.9 and initial troponin 2.061 with CK-MB of 10.1. EKG at this time with nonspecific changes. The patient also with elevated BNP at 1830.4. Patient's troponin up trended with a peak of 12.092 on 07/23/2017 with a CK-MB peak of 12.9 down trending. The patient did have repeat EKGs which were at baseline. He did have some ST depression in the lateral leads, which began to improve during repeat EKGs. Dr. Amin of Cardiology was consulted for NSTEMI and he was held off on being therapeutically anticoagulated secondary to a positive FOBT obtained in the ER and with low hemoglobin count. The patient with a low hemoglobin, was not for cardiac catheterization, so he is optimized medical management with transfusions x4 where he eventually had a hemoglobin which remained above 10 causing Cardiology to proceed with cardiac catheterization during this catheterization and found to have 3-vessel disease and was felt to be bypassable. Dr. Rose of Cardiovascular Surgery was subsequently consulted for this; however, CV surgeon did not feel the patient at this time is a candidate secondary to his cirrhosis and lung nodule with a concern for metastasis, worked up as an outpatient in the [facility]. There was concern for his pulmonary status and that he would not do well abruptly. The patient was continued to be medically managed for his severe heart disease. [facility], the patient with recent echo with EF 55-60%. Repeat echo obtained during this admission with EF 15% to 20%, however, upon evaluation of a LifeVest. His echocardiogram was repeated and the patient did have EF of above 35%. Cardiology was contacted and since patient's EF had improved. He was planned to discharge home without a LifeVest with plans for followup with the [facility] baccarat manager in 2-3 weeks. The patient's chest pain resolved and was cleared from a cardiovascular standpoint. Dr. Peñaloza upon review of records and stable hemoglobin without endoscopic evaluation as bleeding had stopped with repeat FOBT negative at that time. The patient had recent EGD at the end of 2016, which was negative for varices which was a concern for possible source of bleed. He also had a colonoscopy one or two years ago which was normal. Secondary to this, the patient was felt to be stable for outpatient follow up with the [facility] physician. The patient does have a followup appointment with his [facility] concrete plant laborer tomorrow. DISPOSITION: Stable. DISCHARGE INSTRUCTIONS: Location: Home. FOLLOWUP: 1. Follow up with [facility] concrete plant laborer tomorrow and [facility] baccarat manager in 2-3 weeks. 2. Follow up with primary care provider in 7-10 days. ACTIVITY: Cardiopulmonary limits. MTDD
== END 2017-07-30 16:10 | disposition home health service (06) | DRG 280 ==
LOC: ERS 04:09 → ERHOLD 06:06 → CCU 14:08
PROVIDERS: ADMIT Family Medicine; ATTEND Family Medicine
PROC: 4A023N7 Measurement of Cardiac Sampling and Pressure, Left Heart, Percutaneous Approach (ICD-10-PCS; principal; 2017-07-26)
PROC: B2101ZZ Fluoroscopy of Single Coronary Artery using Low Osmolar Contrast (ICD-10-PCS; 2017-07-26)
PROC: B2151ZZ Fluoroscopy of Left Heart using Low Osmolar Contrast (ICD-10-PCS; 2017-07-26)
PROC: 30233N1 Transfusion of Nonautologous Red Blood Cells into Peripheral Vein, Percutaneous Approach (ICD-10-PCS; 2017-07-30)
DX: I25.110 Atherosclerotic heart disease of native coronary artery with unstable angina pectoris (principal); I50.43 Acute on chronic combined systolic (congestive) and diastolic (congestive) heart failure; I21.A1 Myocardial infarction type 2; J96.01 Acute respiratory failure with hypoxia; N17.9 Acute kidney failure, unspecified; M86.172 Other acute osteomyelitis, left ankle and foot; E11.22 Type 2 diabetes mellitus with diabetic chronic kidney disease; I08.3 Combined rheumatic disorders of mitral, aortic and tricuspid valves; E83.42 Hypomagnesemia; K92.2 Gastrointestinal hemorrhage, unspecified; E87.1 Hypo-osmolality and hyponatremia; I13.0 Hypertensive heart and chronic kidney disease with heart failure and stage 1 through stage 4 chronic kidney disease, or unspecified chronic kidney disease; J44.1 Chronic obstructive pulmonary disease with (acute) exacerbation; I42.9 Cardiomyopathy, unspecified; E11.51 Type 2 diabetes mellitus with diabetic peripheral angiopathy without gangrene; I48.0 Paroxysmal atrial fibrillation; Z79.4 Long term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; Z89.421 Acquired absence of other right toe(s); R91.1 Solitary pulmonary nodule; Z87.891 Personal history of nicotine dependence; N18.2 Chronic kidney disease, stage 2 (mild); E11.69 Type 2 diabetes mellitus with other specified complication; D63.1 Anemia in chronic kidney disease; Z89.422 Acquired absence of other left toe(s); D50.0 Iron deficiency anemia secondary to blood loss (chronic); K70.30 Alcoholic cirrhosis of liver without ascites; K21.9 Gastro-esophageal reflux disease without esophagitis
CPT/HCPCS: 36415; 36416; 36430; 71275; 80048; 80053; 80061; 81003; 81015; 82274; 82553; 83036; 83690; 83735; 83880; 84443; 84484; 85025; 85520; 85610; 86850; 86900; 86901; 93005; 93010; 93306; 93458; 93798; 96372; 96374; 99406; A4216; C1769; C9113; J1160; J1644; J1650; J1815; J1940; J2001; J2270; J2405; P9016

== ENCOUNTER 2017-08-19 09:11 | Outpatient (CLI) | payer MEDICARE ==
--- NOTE | 2017-08-19 11:44 | RAD ---
PA AND LATERAL VIEWS CHEST: HISTORY: Dyspnea. FINDINGS/IMPRESSION The heart size is normal. There is an 18 mm nodule in the left upper lobe which was also seen on the chest CT of 07/23/17. No focal areas of consolidation, pneumothorax, or pleural effusions are seen. POS: [facility]
== END 2017-08-19 09:12 | disposition home or self-care (01) ==
LOC: RAD 09:11
PROVIDERS: ATTEND Internal Medicine Critical Care Medicine
DX: R06.00 Dyspnea, unspecified (principal); R91.1 Solitary pulmonary nodule
CPT/HCPCS: 71046

== ENCOUNTER 2017-10-14 13:31 | Inpatient (IN) | payer MEDICARE ==
[~2017-10-14 13:31] MED LIST: ISOVUE-370 76%-LOCM 1 ML ONE
--- NOTE | 2017-10-14 15:18 | CT ---
ABDOMEN CT WITH CONTRAST PELVIC CT WITH CONTRAST: Date: 10/14/17 COMPARISON: None. CORRELATION: Angiogram chest CT dated 07/23/17. HISTORY: Abdominal pain. Sepsis. Fever. TECHNIQUE: Abdomen and pelvic CT performed with IV contrast. Enteric contrast was not administered. Coronal refo rmatted images submitted for interpretation. FINDINGS: ABDOMEN CT: No masses or consolidation of the lung bases. Heart size is within normal limits. There are coronary artery calcifications and calcifications of the mitral annulus. There is atherosclerosis of the visua lized aorta. There is no evidence of aneurysm. Mild focal prominence of the infrarenal abdominal aort a measuring 2.6 x 2.8 cm. Mild prominence of both common iliac arteries, right greater than left. There appears to be sclerotic change in the liver with nodularity in the left hepatic lobe. No obviou s enhancing masses in the liver. Gallbladder is surgically absent. Adrenal glands and pancreas are also unremarkable. Symmetric enhancement of the kidneys. Bilaterally, no obstructive uropathy. There is nonspecific bila teral perinephric fat stranding. There are wedge-shaped opacities involving the spleen suggesting areas of splenic infarction. Trace a mount of perisplenic fluid. No gastrohepatic, retrocrural, or periportal lymphadenopathy. No mesenteric mass, lymphadenopathy, or free air. No significant free fluid. Limited evaluation of the alimentary canal due to the absence of oral contrast. No evidence of bowel obstruction. Ileocecal junction is normal. Appendix is not appreciated. Questionable retrocecal appen светлана. No obvious inflammation of the cecal apex. Nondistended, nondilated colon. PELVIC CT: Viramontes catheter decompresses the urinary bladder. No pelvic mass, lymphadenopathy, free air, or free f luid. No lytic or blastic lesion in the osseous structures. Remote mild compression fracture at the inferio rmost thoracic type vertebral body. IMPRESSION: Wedge-shaped opacities in the spleen. Correlate for splenic infarct. POS: [facility]
[2017-10-14] MEDS ORDERED: Ibuprofen 200 MG TAB ONE (16:29)
[2017-10-14] MEDS ORDERED: Acetaminophen 500 MG TAB ONE (16:29)
--- NOTE | 2017-10-14 16:31 | HP ---
PRIMARY CARE PHYSICIAN: [facility]. REASON FOR ADMISSION: Transfer from [place] for sepsis. HISTORY OF PRESENT ILLNESS: A 72-year-old male who was recently admitted in our hospital in 07/2017. At that time, patient had non-ST elevation GA. The patient was found with three-vessel coronary ar shaw disease. Patient also had CT angiography which showed cavitary lesion with a spiculated margin in the left upper lobe. CT chest also showed incidentally cirrhotic changes of the liver and he had bilateral hilar lymphadenopathy. During that admission, patient had a cardiac catheterization and fo und with 3-vessel CAD. Cardiovascular surgeon was consulted as well. Finished Cloth Examiner was consulted as well and patient was discharged on 07/30/2017. During that admission, echocardiography showed systo lic and diastolic dysfunction. Today, patient went to [place] [facility] with complaint of back pain. He was not moving hi s body because of back pain. He was not able to provide good history. He was found with high grade fever, acute kidney injury, hyponatremia, elevated troponin, elevated BNP and bandemia. He was meeti ng sepsis criteria. He was given broad spectrum antibiotic therapy. Initially, he was hypertensive, febrile, tachycardic, tachypneic, and he was uncomfortable in bed. When we saw this patient in our emergency room, he was only complaining of back pain, neck pain and h e was feeling pain all over his body. He was asking for pain medication. REVIEW OF SYSTEMS: The following complete review of systems was negative, unless otherwise mentioned in the HPI or below: Constitutional: Weight loss or gain, ability to conduct usual activities. Skin: Rash, itching. Eyes: Double vision, pain. ENT/Mouth: Nose bleeding, neck stiffness, pain, tenderness. Cardiovascular: Palpitations, dyspnea on exertion, orthopnea. Respiratory: Shortness of breath, wheezing, cough, hemoptysis, fever or night sweats. Gastrointestinal: Poor appetite, abdominal pain, heartburn, nausea, vomiting, constipation, or diarr hea. Genitourinary: Urgency, frequency, dysuria, nocturia. Musculoskeletal: Pain, swelling. Neurologic/Psychiatric: Anxiety, depression. Allergy/Immunologic: Skin rash, bleeding tendency. Please see my HPI for pertinent positive and negative. All other review of systems reviewed and nega tive except as mentioned in the HPI. PAST MEDICAL HISTORY: Three-vessel coronary artery disease, systolic and diastolic heart failure, di abetes type 2, hypertension, cirrhosis of liver, peripheral vascular disease, chronic alcohol abuse, tobacco abuse, dyslipidemia, gastroesophageal reflux disease, peripheral neuropathy, osteoarthritis, COPD, severe aortic stenosis, hypothyroidism. PAST SURGICAL HISTORY: Cholecystectomy, colonoscopy in 2014, EGD in 03/2017 as well as in 2013 and . Patient has history of multiple toe amputations in his lower extremity. PAST PSYCHIATRIC HISTORY: Anxiety and depression. SOCIAL HISTORY: The patient has history of smoking as well as heavy alcohol abuse. He lives at home by himself. He ambulates with a cane. FAMILY HISTORY: No strong family history of premature coronary artery disease, stroke or cancer. ALLERGIES: No known drug allergy. CURRENT HOME MEDICATIONS: The patient was discharged home on following medications. The patient is on Humira pen 40 mg subcu every 2 weeks, aspirin 325 mg p.o. daily, Lipitor 40 mg p.o. daily, Coreg 6 .25 mg p.o. b.i.d., clonidine 0.1 mg p.o. q.4 hourly p.r.n., Cymbalta 30 mg p.o. daily, vitamin D2 50 ,000 units every 7 days, ferrous sulfate 325 mg p.o. daily, Lasix 40 mg p.o. daily, gabapentin 300 mg p.o. t.i.d., insulin Levemir 33 units subcu b.i.d., probiotic 1 capsule daily, Synthroid 175 mcg p.o . daily, lisinopril 2.5 mg p.o. daily, magnesium oxide 400 mg p.o. daily, metformin 250 mg p.o. daily , thiamine 100 mg p.o. daily, Spiriva inhalation daily, tramadol on a p.r.n. basis, trazodone 100 mg p.o. at bedtime p.r.n. EMERGENCY ROOM COURSE: At [place] [facility], patient is given vancomycin, levofloxacin, Ro cephin, Tylenol, IV fluid. The patient has received IV fluid in our emergency room as well. PHYSICAL EXAMINATION: VITAL SIGNS: On arrival, blood pressure 164/91, pulse 138, respiratory rate 28, temperature 103.7, s aturation 94% on room air, weight 79 kilograms. GENERAL: Patient is currently alert, awake, arousable, follows command, discomfort due to pain. HEAD: Normocephalic, atraumatic. EYES: Pupils round, reactive to light. Extraocular muscle intact. ENT: Dry mucous membrane, no oral lesion, no pharyngeal erythema. No exudate. Patient does not hav e any teeth. NECK: Supple. No JVD, no thyromegaly, no meningeal signs of irritation though patient has discomfor t with neck examination. CARDIAC: S1, S2 regular, tachycardia, systolic murmur present at aortic area. No gallop, no rub. LUNGS: Bilateral end expiratory wheezing heard, no rales. ABDOMEN: The patient does have diffuse discomfort, predominantly in left upper quadrant as well as l ower abdomen, no peritoneal sign, no organomegaly, no mass, no suprapubic discomfort. BACK: Examination is unremarkable. The patient does have severe back pain with movement, but no aileen ssly point tenderness noted. GENITALIA: Within normal limits. Urine Viramontes catheter in place draining gross hematuria. EXTREMITIES: No edema. Good distal pulsation. Patient does have previously amputated toe. NEUROLOGIC: Grossly nonfocal examination. He moves all 4 limbs. Plantar bilateral flexor. SKIN: No skin rash. PSYCHIATRIC: Normal affect. IMAGING DATA AND SIGNIFICANT LABORATORY DATA: 1. CT abdomen and pelvis showing compression fracture of thoracic vertebra. Wedge shaped area consi stent with splenic infarct, cirrhotic liver, cholecystectomy, infrarenal abdominal aortic aneurysm, c oronary calcification. 2. Chest x-ray based on my review, no acute cardiopulmonary process. 3. CBC: WBC 6.8, hemoglobin 11.8, platelet 91 with bandemia. INR 1.2. 4. BMP: Sodium 129, potassium 4.6, chloride 96, carbon dioxide 18, BUN 30, creatinine 1.36, glucose 305, calcium 8.5, lactic acid 3.4. 5. LFT: AST 34, ALT 37, alkaline phosphatase 133, albumin 3.3. CK 40, CK-MB 0.5, troponin 0.058. BNP 772.3, lipase 42, albumin 3.3. Urinalysis gross hematuria. Streptococcal screen negative. Infl uenza screen negative. 6. Chest x-ray based on my review, no acute cardiopulmonary process. ASSESSMENT AND PLAN/IMPRESSION: 1. Sepsis with acute organ dysfunction. The patient meets sepsis criteria with high grade fever, ta chycardia, tachypnea and bandemia. Source of infection is unclear, but suspecting bacteremia. Rick nt has splenic infarct. The patient has gross hematuria and he has back pain. At this point, rigo culp will be treated with cefepime, Levaquin, and vancomycin. We will follow up on culture result. We will consult Dr. Wilder to identify source of infection. Further investigation based on clinical cour se. Patient will be admitted to [facility] for close monitoring. 2. Gross hematuria. Because of that, we will hold on any antiplatelet or heparin product. We will monitor gross hematuria. If hematuria does not resolve, then we will consider Urology evaluation. A t this point, we are suspecting related with thrombocytopenia and Viramontes related trauma. We will foll ow up on urine culture result to rule out infection. The patient is already on broad spectrum antibi otic therapy. 3. Acute kidney failure. The patient has prerenal etiology. Patient will be given IV fluid with NS and we will repeat a BMP tomorrow. We will avoid nephrotoxin agents. 4. Hyponatremia, hypochloremia, suspecting from beer potomania versus dehydration. Patient will be given IV fluid with NS and we will repeat BMP tomorrow. 5. Metabolic acidosis, likely due to sepsis with lactic acidosis. We will repeat BMP tomorrow. 6. Lactic acidosis, likely due to sepsis. We will repeat lactic acid level tomorrow. 7. Demand ischemia of myocardium. We will do serial cardiac enzymes x3 to rule out acute coronary s yndrome. 8. Hypoalbuminemia associated with protein-calorie malnutrition. The patient will be given nutritio nal supplement while in hospital. 9. Systolic and diastolic heart failure, chronic. Currently, patient appears to be euvolemic. His BNP is elevated, but better than before. We will watch for any fluid overload status. 10. Thrombocytopenia, likely due to alcohol abuse and cirrhosis. We will avoid any heparin product. 11. Anemia, normocytic, normochromic. Patient will be given iron supplement and multivitamin therap y. 12. Diabetes type 2, not well controlled. We will continue insulin as per sliding scale protocol. We will continue Levemir 10 units subcu b.i.d. 13. Hypertension. At this point, we will use p.r.n. basis hydralazine, labetalol. If blood pressur e persistently remains high, then we will continue with Coreg 6.25 mg p.o. b.i.d. 14. Hypothyroidism. We will continue Synthroid 175 mcg p.o. daily. 15. Gastroesophageal reflux disease. We will continue Protonix 40 mg IV daily. 16. Alcohol abuse. The patient will be given multivitamin and upon stabilization, we will continue with folic acid, thiamine, vitamin B12 therapy. 17. Chronic obstructive pulmonary disease. The patient has wheezing. We will continue with DuoNeb therapy, Pulmicort nebulization twice daily. 18. Deep venous thrombosis prophylaxis. Sequential compression device boots. No Lovenox because of hematuria and thrombocytopenia. 19. Gastrointestinal prophylaxis, Protonix 40 mg IV daily. 20. Code status: The patient is FULL CODE. Patient does not have any surrogate decision maker. Disposition plan based on clinical course. We are expecting patient's stay in hospital more than 2 m idnights. Plan of care discussed with the patient in detail.
[2017-10-14 17:06] LABS: Lactic Acid 2.8 mmol/L (0.5-2.2)
[2017-10-14 17:48] LABS: Bilirubin Negative (Negative); Blood, Urine Large (Negative); Clarity CLOUDY (Clear); Glucose, Urine (Dipstick) 250 mg/dL (Negative); Leukocyte Small (Negative); Nitrite Negative (Negative); Protein, Urine (Dipstick) 100 mg/dL (Neg-Trace); Specific Gravity, Urine 1.026 (1.002-1.036)
[2017-10-14 17:57] LABS: Amphetamine Not Detected (NotDetected); Barbiturates Screen Not Detected (NotDetected); Benzodiazepine Screen Not Detected (NotDetected); Cocaine Metabolite Screen Not Detected (NotDetected); Medtox Control Line Valid? VALID (VALID); Medtox Reader # READER 4; Methadone Not Detected (NotDetected); Methamphetamine Not Detected (NotDetected); Opiate Screen Detected (NotDetected); Oxycodone Screen Not Detected (NotDetected); Phencyclidine (PCP) Not Detected (NotDetected); THC/Cannabinoid Screen Not Detected (NotDetected); Tricyclic Screen Not Detected (NotDetected)
[2017-10-14] MEDS ORDERED: Diltiazem 125 MG/25 ML ONE (18:00)
[2017-10-14] MEDS ORDERED: Norepinephrine 8 MG/0.9% NS 250 ML ONE (18:00)
[2017-10-14 18:06] LABS: RBC/HPF GREATER THAN 50-TNTC HPF (0-3)
[2017-10-14 18:07] LABS: Bacteria/HPF None Seen HPF (None Seen); Hyaline Casts/LPF 0-3 HYALINE CAST LPF (0-3 Hyaline); Squamous Epithelial 0-3 HPF (0-3); WBC/HPF 0-3 HPF (0-3)
[2017-10-14] MEDS ORDERED: Diltiazem HCl 125 MG, Admixture Fee 1 EACH in Sodium Chloride 0.9% 100 ML IVPB SCH (18:15)
[2017-10-14] MEDS ORDERED: Magnesium Sulfate 2 GM in Sodium Chloride 0.9% 100 ML IVPB SCH (18:15)
[2017-10-14] MEDS ORDERED: Gentamicin Sulfate 360 MG in Sodium Chloride 0.9% 100 ML IVPB ONE (18:15)
[2017-10-14] MEDS ORDERED: Sodium Chloride 0.9% 1,000 ML IV SCH (20:15)
[2017-10-14] MEDS ORDERED: Norepinephrine 8 MG/250 ML BAG IVPB PRN (20:25)
[2017-10-14] MEDS ORDERED: cefTRIAXone\\ROCEPHIN 2 GM in Sodium Chloride 0.9% 100 ML IVPB SCH (20:30)
[2017-10-14] MEDS ORDERED: Amiodarone HCl 150 MG in Dextrose 5% in Water 100 ML IVPB SCH (20:30)
--- NOTE | 2017-10-14 20:33 | RAD ---
FRONTAL RADIOGRAPH CHEST: DATE: 10/14/2017 TIME: 7:04 p.m. HISTORY: Back pain and neck pain. COMPARISON: 10/14/2017 at 9:48 a.m. FINDINGS: Supine imaging is provided, limiting assessment for pneumothorax and pleural fluid. There is a right -sided vascular catheter, with the distal tip overlying the expected location of the cavoatrial junct ion. There is nonspecific interstitial prominence, stable. There is atherosclerotic calcification o f the aortic arch. The lung bases are not fully imaged on this exam. IMPRESSION: Right vascular catheter, as detailed above. POS: MEME
[2017-10-14] MEDS ORDERED: Chloraseptic Spray 180 ml Bottle PO PRN (20:35)
[2017-10-14] MEDS ORDERED: Senokot 8.6 MG TAB PO PRN (20:35)
[2017-10-14] MEDS ORDERED: hydrALAZINE 20 MG/ML VIAL SLOW IVP PRN (20:35)
[2017-10-14] MEDS ORDERED: Multivit, Adult Inj 10 ML VIAL IV SCH (20:35)
[2017-10-14] MEDS ORDERED: HumaLOG 300 UNITS/3 ML VIAL SC PRN (20:35)
[2017-10-14] MEDS ORDERED: Artificial Tears 18 DROP/0.9 ML EA EYE PRN (20:35)
[2017-10-14] MEDS ORDERED: Dextrose 50% Abboject 50 ML SYRINGE SLOW IVP PRN (20:35)
[2017-10-14] MEDS ORDERED: Loratadine 10 MG TAB PO PRN (20:35)
[2017-10-14] MEDS ORDERED: Eucerin (Mineral Oil/Petrolatum,White) 30 gm Jar TOP PRN (20:35)
[2017-10-14] MEDS ORDERED: Ondansetron HCl/PF 4 MG/2 ML Vial IVP PRN (20:35)
[2017-10-14] MEDS ORDERED: Milk Of Magnesia 30 ML UDCUP PO PRN (20:35)
[2017-10-14] MEDS ORDERED: Dextrose 5% in Water 1,000 ML IV PRN (20:35)
[2017-10-14] MEDS ORDERED: Mag-Al 1200 mg/1200 mg/30 ML UDCUP PO PRN (20:35)
[2017-10-14] MEDS ORDERED: Labetalol HCl 100 MG/20 ML VIAL SLOW IVP PRN (20:35)
[2017-10-14] MEDS ORDERED: Diabetic Tussin 200 MG/10 ML UDCUP PO PRN (20:35)
[2017-10-14] MEDS ORDERED: Sodium Chloride 0.65% Nasal 44 ML BOT EA NARE PRN (20:35)
[2017-10-14] MEDS ORDERED: Acetaminophen 325 MG TAB PO PRN (20:35)
[2017-10-14] MEDS ORDERED: Loperamide HCl 2 MG CAP PO PRN (20:35)
[2017-10-14] MEDS ORDERED: Nitroglycerin 0.4 MG TAB (25 Tab Bottle) SL PRN (20:35)
[2017-10-14] MEDS ORDERED: Ondansetron ODT 4 MG TAB PO PRN (20:35)
[2017-10-14] MEDS ORDERED: Budesonide 0.5 MG/2 ML NEB INH SCH (20:45)
[2017-10-14] MEDS ORDERED: Sodium Chloride 0.9% 500 ML IVPB SCH (20:45)
[2017-10-14] MEDS: Amiodarone HCl 450 MG in Dextrose 5% in Water 250 ML IVPB SCH (20:55)
[2017-10-14] MEDS ORDERED: Vancomycin HCl 1 GM in Premix Bag 1 BAG IVPB SCH (21:00)
[2017-10-14] MEDS: Carvedilol 6.25 MG TAB PO SCH ×2 (21:13→23:14)
[2017-10-14] MEDS ORDERED: Multivitamins, Adult 10 ML in Sodium Chloride 0.9% 1,000 ML IV SCH (21:15)
[2017-10-14 21:30] LABS: CKMB 2.2 ng/mL (0-6.6); Troponin I 0.122 ng/mL (< 0.028)
[2017-10-14] MEDS: Budesonide 0.5 MG/2 ML NEB INH SCH (21:53)
[2017-10-14] MEDS: Cefepime 1 GM in Sodium Chloride 0.9% 100 ML IVPB SCH (22:45)
[2017-10-14] MEDS: Insulin Glargine 10 UNITS in Pre-Filled Syringe 1 EACH SC SCH (22:50)
[2017-10-14] MEDS: Gabapentin 300 MG CAP PO SCH (22:57)
[2017-10-14] MEDS: Sodium Chloride 0.9% 1,000 ML IV SCH (23:02)
[2017-10-14] MEDS: Piperacillin/Tazobactam 3.375 GM in Sodium Chloride 0.9% 100 ML IVPB SCH (23:03)
[2017-10-14] MEDS: HYDROcodone/Acetaminophen 10/325 mg Tablet PO PRN (23:13)
[2017-10-15] MEDS ORDERED: Vancomycin HCl 1.25 GM in Sodium Chloride 0.9% 250 ML 250 ML IVPB SCH (00:30)
[2017-10-15 00:57] LABS: CKMB 2.9 ng/mL (0-6.6); Troponin I 0.176 ng/mL (< 0.028)
[2017-10-15 05:04] LABS: ALT (SGPT) 38 U/L (8-55); AST (SGOT) 47 U/L (5-34); Albumin 2.5 g/dL (3.4-4.8); Alkaline Phosphatase 107 U/L (40-150); Anion Gap 10 mmol/L (10-20); BUN (Urea Nitrogen) 23 mg/dL (8.4-25.7); Bilirubin, Total 0.8 mg/dL (0.2-1.2); CRP (Inflammatory) 26.14 mg/dL (= or < 0.5); Calc. Creatinine Clearance 72 mL/min (70-130); Calcium 7.6 mg/dL (7.8-10.44); Carbon Dioxide 21 mmol/L (23-31); Chloride 107 mmol/L (98-107); Estimated GFR-MDRD 69; Globulin 3.2 g/dL (2.4-3.5); Glucose 312 mg/dL (83-110); Lactic Acid 1.5 mmol/L (0.5-2.2); Potassium 3.8 mmol/L (3.5-5.1); Protein, Total 5.7 g/dL (5.8-8.1); Sodium 134 mmol/L (136-145)
[2017-10-15] MEDS: Sodium Chloride 0.9% 1,000 ML IV SCH ×3 (05:34→16:55)
[2017-10-15] MEDS: Piperacillin/Tazobactam 3.375 GM in Sodium Chloride 0.9% 100 ML IVPB SCH (05:35)
[2017-10-15] MEDS: HumaLOG 300 UNITS/3 ML VIAL SC PRN ×3 (05:50→16:09)
[2017-10-15] MEDS ORDERED: Levothyroxine 175 MCG TAB PO SCH (06:00)
[2017-10-15 06:05] LABS: #Lymphocytes 0.4 thou/uL (1.20-3.40); #Monocytes 0.3 thou/uL (0.11-0.59); #Neutrophils 4.2 thou/uL (1.40-6.50); %Eosinophils 0.1 % (0.0-10.0); %Lymphocytes 8.2 % (21.0-51.0); %Monocytes 6.6 % (0.0-10.0); %Neutrophils 85.1 % (42.0-75.0); Hemoglobin 10.3 g/dL (14.0-18.0); Mean Corpuscular HGB CONC 33.9 g/dL (32.0-36.0); Mean Corpuscular Hemoglobin 30.7 pg (27.0-31.0); Mean Corpuscular Volume 90.5 fL (78.0-98.0); Mean Platelet Volume 9.3 fL (7.4-10.4); PLT Morphology Comment Appears Decreased; Platelet Count 79 thou/uL (130-400); RBC Distribution Width 17.3 % (11.5-14.5); Red Blood Cell (RBC) Count 3.36 mill/uL (4.70-6.10); White Blood Cell (WBC) Count 4.9 thou/uL (4.8-10.8)
[2017-10-15] MEDS: HYDROcodone/Acetaminophen 10/325 mg Tablet PO PRN ×3 (07:32→20:25)
[2017-10-15] MEDS: Budesonide 0.5 MG/2 ML NEB INH SCH ×2 (07:49→18:41)
[2017-10-15] MEDS ORDERED: Carvedilol 6.25 MG TAB PO SCH (08:00)
[2017-10-15] MEDS: Amiodarone HCl 450 MG in Dextrose 5% in Water 250 ML IVPB SCH (08:18)
[2017-10-15] MEDS: Cefepime 1 GM in Sodium Chloride 0.9% 100 ML IVPB SCH (08:28)
[2017-10-15] MEDS: Gabapentin 300 MG CAP PO SCH ×3 (08:28→20:24)
[2017-10-15] MEDS ORDERED: Saccharomyces boulardii 250 MG CAP PO SCH (09:00)
[2017-10-15] MEDS ORDERED: Prevnar 13-Val Conj/PF 0.5 ML SYRINGE IM ONE (09:00)
[2017-10-15] MEDS ORDERED: DULoxetine 30 MG CAP PO SCH (09:00)
[2017-10-15] MEDS ORDERED: Insulin Glargine 10 UNITS in Pre-Filled Syringe 1 EACH SC SCH (09:00)
--- NOTE | 2017-10-15 09:50 | CON ---
DATE OF CONSULTATION: 10/15/2017 John Cruz is a 70-year-old gentleman who was recently discharged from the hospital with a diagnosi s of acute myocardial infarction, anemia, estimated EF 40%, abnormal CT of the chest showing a spicul ated lesion in the left upper lung. Atrial fibrillation. [facility] He was doing well until he presented to the [place] [facility] about 9:28 in the morning with severe ene k pain, neck pain. He lives alone. Some flank pain. Right flank plain was hurting him over several days. He denied any nausea, vomiting, diarrhea, coughing, wheezing or any difficulty breathing at that time . He then was transferred to [facility] here in [place] from [place] where a CT of the abdo men was done which shows a questionable splenic infarct, but otherwise no abdominal aneurysm was seen and no other evidence of ischemia was seen. His main problem once again, persistent neck pain and b ack pain. He was smoking until 2 days ago, smoked for most of his life. He has been given vancomycin, Levaquin, and Rocephin in the ER. He went into rapid atrial fibrillati on and was started on amiodarone. He dropped his blood pressure, started on Levophed. This morning his Levophed is off, his blood pressure is 150 systolic. His temperature was 102 in the ER, he was tachycardic. When I saw him in the ER, his blood pressure was 170 systolic. A central line was inserted. PAST MEDICAL HISTORY: Extensively outlined. Pertinent for COPD, abnormal chest x-ray. He has an ID , SVT, chronic pain, hypertension, chronic obstructive pulmonary disease. PAST SURGICAL HISTORY: Left transmetatarsal amputation, gallbladder, right toe amputation. SOCIAL HISTORY: History of previous alcohol abuse, quit drinking several years ago. MEDICATIONS: His list of medicine from home includes trazodone 100, tramadol, Glucophage 250, Catapr es 0.1, Spiriva, Thiamine, Protonix 40, Zestril 2.5, Synthroid 175, insulin 33 twice a day, hydrocodo ne, Cymbalta 30, Coreg, nebulizer. REVIEW OF SYSTEMS: Otherwise 10 point negative. PHYSICAL EXAMINATION: GENERAL: Awake, alert, response. VITAL SIGNS: Sats are 98%, pulse 80, blood pressure 150/80. He is in atrial fibrillation. CHEST: Reveals decreased breath sounds, no wheezing. CARDIAC: Normal S1, S2, no gallops. ABDOMEN: Soft, no mass. EXTREMITIES: No edema. LABORATORY DATA: White count 4000, H&H 10 and 30, platelet count is 79. Thrombocytopenic which is n ew. Creatinine is normal. Sodium 134. Troponin is slightly elevated. TSH is normal. BNP was 72. His x-ray did not show any infiltrates. IMPRESSION: 1. Severe back and neck pain. Back and neck pain etiology unclear, probably osteoarthritis, though initially imaging studies did not show any evidence of aortic aneurysm. 2. Chronic obstructive pulmonary disease. 3. Abnormal x-ray. 4. Thrombocytopenia, which is new. 5. Possibly sepsis syndrome, probably urinary tract infection. Notable for a splenic infarct, unkno wn age time. 6. Major depression. 7. Tobacco abuse. 8. Hypothyroidism. PLAN: At this stage, continue antibiotics as ordered, includes vancomycin, Levaquin, Maxipime. He i s on neb treatments. He is on amiodarone. He is on pain relief. Continue his home antidepressant medication. Serial exam. I will follow. Critical time 45 minutes.
[2017-10-15] MEDS: Insulin Glargine 10 UNITS in Pre-Filled Syringe 1 EACH SC SCH ×2 (09:56→20:25)
--- NOTE | 2017-10-15 11:19 | PDOC.PN ---
- Subjective Encounter Start Date: 10/15/17 Encounter Start Time: 09:10 -: old records requested/rev pt is on amiodaron, off levophed, has gross hematuria, has fever - Objective Resuscitation Status: Resuscitation Status FULL:Full Resuscitation MAR Reviewed: Yes Vital Signs & Weight: Vital Signs (12 hours) Temp BP 10/15/17 08:28 144/83 H 10/15/17 08:00 102.1 F H 10/15/17 04:00 98 F 10/15/17 00:00 97.6 F Weight Weight 183 lb 13.848 oz Most Recent Monitor Data Heart Rate from ECG 110 NIBP 117/57 NIBP BP-Mean 85 Respiration from ECG 17 SpO2 96 I&O: 10/14/17 10/15/17 10/16/17 06:59 06:59 06:59 Intake Total 1524 800 Output Total 893 70 Balance 631 730 Result Diagrams: 10/15/17 04:00 10/15/17 04:00 Additional Labs: Accuchecks 10/15/17 10/14/17 05:47 22:52 POC Glucose 275 H 318 H EKG Reviewed by me: Yes (afib) Phys Exam - Physical Examination Constitutional: NAD HEENT: PERRLA, moist MMs, sclera anicteric Neck: no JVD, supple Respiratory: no rales, wheezing present Cardiovascular: irregular SM+ Gastrointestinal: soft, non-tender, no distention, positive bowel sounds all toe amputated on left at metatarsal 3rd toe wet gangrene Neurological: non-focal, normal sensation Lymphatic: no nodes Psychiatric: normal affect Skin: normal turgor Dx/Plan (1) Acute kidney failure Status: Acute (2) Atrial fibrillation with rapid ventricular response Code(s): I48.91 - UNSPECIFIED ATRIAL FIBRILLATION Status: Acute (3) Demand ischemia of myocardium Code(s): I24.8 - OTHER FORMS OF ACUTE ISCHEMIC HEART DISEASE Status: Acute (4) Hematuria, gross Status: Acute (5) Hyponatremia Code(s): E87.1 - HYPO-OSMOLALITY AND HYPONATREMIA Status: Acute (6) Lactic acidosis Code(s): E87.2 - ACIDOSIS Status: Acute (7) Sepsis with acute organ dysfunction Code(s): A41.9 - SEPSIS, UNSPECIFIED ORGANISM; R65.20 - SEVERE SEPSIS WITHOUT SEPTIC SHOCK Status: Acute (8) Splenic infarct Code(s): D73.5 - INFARCTION OF SPLEEN Status: Acute (9) 3-vessel CAD Status: Chronic (10) Alcoholic cirrhosis of liver Code(s): K70.30 - ALCOHOLIC CIRRHOSIS OF LIVER WITHOUT ASCITES Status: Chronic (11) Anemia, macrocytic Code(s): D53.9 - NUTRITIONAL ANEMIA, UNSPECIFIED Status: Chronic (12) Anxiety and depression Code(s): F41.9 - ANXIETY DISORDER, UNSPECIFIED; F32.9 - MAJOR DEPRESSIVE DISORDER, SINGLE EPISODE, UNSPECIFIED Status: Chronic (13) COPD (chronic obstructive pulmonary disease) Status: Chronic (14) Chronic combined systolic and diastolic CHF (congestive heart failure) Code(s): I50.42 - CHRONIC COMBINED SYSTOLIC AND DIASTOLIC HRT FAIL Status: Chronic (15) DM type 2 (diabetes mellitus, type 2) Status: Chronic Qualifiers: Diabetes mellitus keno terminal operator insulin use: with chcf use Diabetes mellitus complication status: without complication Qualified Code(s): E11.9 - Type 2 diabetes mellitus without complications; Z79.4 - termite technician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; Z79.4 - termite technician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; Z79.4 - termite technician ( 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; Z79.4 - [facility]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 (16) Dyslipidemia Code(s): E78.5 - HYPERLIPIDEMIA, UNSPECIFIED Status: Chronic (17) GERD (gastroesophageal reflux disease) Code(s): K21.9 - GASTRO-ESOPHAGEAL REFLUX DISEASE WITHOUT ESOPHAGITIS Status: Chronic (18) HTN (hypertension) Code(s): I10 - ESSENTIAL (PRIMARY) HYPERTENSION Status: Chronic (19) Hypoalbuminemia due to protein-calorie malnutrition Code(s): E46 - UNSPECIFIED PROTEIN-CALORIE MALNUTRITION Status: Chronic (20) Hypothyroidism Code(s): E03.9 - HYPOTHYROIDISM, UNSPECIFIED Status: Chronic (21) PVD (peripheral vascular disease) Code(s): I73.9 - PERIPHERAL VASCULAR DISEASE, UNSPECIFIED Status: Chronic (22) Protein-calorie malnutrition, moderate Code(s): E44.0 - MODERATE PROTEIN-CALORIE MALNUTRITION Status: Chronic (23) Thrombocytopenia Code(s): D69.6 - THROMBOCYTOPENIA, UNSPECIFIED Status: Chronic (24) Tobacco abuse Code(s): Z72.0 - TOBACCO USE Status: Chronic (25) Aortic stenosis Code(s): I35.0 - NONRHEUMATIC AORTIC (VALVE) STENOSIS Status: Chronic - Plan cont current plan of care, continue antibiotics * medication reviewed as below * symptomatic treatment * surgeon consulted for diabetic toe gangrene * continue current IV antibiotics as below * continue amiodarron drip * urology consulted for gross hematuria * cardiology consulted for afib * ID on case * will monitor * pulmonary recommendation noted. Review of Systems - Review of Systems Constitutional: fever. negative: chills, sweats, weakness, malaise, other Eyes: negative: Pain, Vision Change, Conjunctivae Inflammation, Eyelid Inflammation, Redness, Other ENT: negative: Ear Pain, Ear Discharge, Nose Pain, Nose Discharge, Nose Congestion, Mouth Pain, Mouth Swelling, Throat Pain, Throat Swelling, Other Respiratory: negative: Cough, Dry, Shortness of Breath, Hemoptysis, SOB with Excertion, Pleuritic Pain, Sputum, Wheezing Cardiovascular: negative: chest pain, palpitations, orthopnea, paroxysmal nocturnal dyspnea, edema, light headedness, other Gastrointestinal: negative: Nausea, Vomiting, Abdominal Pain, Diarrhea, Constipation, Melena, Hematochezia, Other Genitourinary: negative: Dysuria, Frequency, Incontinence, Hematuria, Retention , Other Musculoskeletal: Back Pain, Foot Pain. negative: Neck Pain, Shoulder Pain, Arm Pain, Hand Pain, Leg Pain, Other - Medications/Allergies Allergies/Adverse Reactions: Allergies Allergy/AdvReac Type Severity Reaction Status Date / Time No Known Allergies Allergy Unverified 07/23/17 10:34 Medications: Current Medications Acetaminophen (Tylenol) 650 mg PO Q4H PRN PRN Reason: Headache/Fever or Pain Last Admin: 10/15/17 08:18 Dose: 650 mg Hydrocodone Bitart/Acetaminophen ([place] 10/325) 1 tab PO Q4H PRN PRN Reason: Moderate Pain (4-6) Last Admin: 10/15/17 07:32 Dose: 1 tab Al Hydroxide/Mg Hydroxide (Maalox) 30 ml PO Q6H PRN PRN Reason: Heartburn or Indigestion Albuterol/Ipratropium (Duoneb) 3 ml NEB [id number] MICHAELA Last Admin: 10/15/17 07:49 Dose: Not Given Artificial Tears (Tears Naturale) 0 drop EA EYE PRN PRN PRN Reason: Dry Eyes Budesonide (Pulmicort Neb Solution) 0.5 mg INH BID-RT [facility] Last Admin: 10/15/17 07:49 Dose: Not Given Carvedilol (Coreg) 6.25 mg PO BID-WM [facility] Last Admin: 10/15/17 08:28 Dose: 6.25 mg Dextrose/Water (Dextrose 50%) 25 gm SLOW IVP PRN PRN PRN Reason: Hypoglycemia Duloxetine HCl (Cymbalta) 30 mg PO DAILY [facility] Last Admin: 10/15/17 08:29 Dose: 30 mg Gabapentin (Neurontin) 300 mg PO TID [facility] Last Admin: 10/15/17 08:28 Dose: 300 mg Glucagon (Glucagon) 1 mg IM PRN PRN PRN Reason: Hypoglycemia Guaifenesin (Robitussin Sf) 200 mg PO Q4H PRN PRN Reason: Cough Hydralazine HCl (Apresoline) 10 mg SLOW IVP Q4H PRN PRN Reason: Systolic BP > 180 Amiodarone HCl 450 mg/Miscellaneous Medication 1 each/ Dextrose/Water 259 mls @ 0 mls/hr IVPB INF [facility]; As Directed PRN Reason: Protocol Last Admin: 10/15/17 08:18 Dose: 259 mls Norepinephrine Bitartrate (Levophed) 250 mls @ 0 mls/hr IVPB INF PRN; Protocol ; Titrate PRN Reason: Blood Pressure Cefepime HCl 1 gm/ Sodium (Chloride) 100 mls @ 200 mls/hr IVPB Q12HR [facility] Last Admin: 10/15/17 08:28 Dose: 100 mls Dextrose/Water (D5w) 1,000 mls @ 0 mls/hr IV .Q0M PRN; As Directed PRN Reason: Hypoglycemia Levofloxacin 500 mg/ Device 100 mls @ 100 mls/hr IVPB 2100 [facility] Last Admin: 10/14/17 21:31 Dose: 100 mls Sodium Chloride (Normal Saline 0.9%) 1,000 mls @ 100 mls/hr IV .Q10H [facility] Last Admin: 10/15/17 05:38 Dose: 1,000 mls Insulin Glargine 10 units/ (Miscellaneous Medication) 0.1 mls @ 0 mls/hr SC BID [facility] Last Admin: 10/15/17 09:56 Dose: 0.1 mls Vancomycin HCl 1.25 gm/ Sodium (Chloride) 250 mls @ 166.667 mls/hr IVPB 0030 [facility] Last Admin: 10/15/17 00:39 Dose: 250 mls Insulin Human Lispro (Humalog) 0 units SC .MODERATE SLIDING SC PRN PRN Reason: Moderate Correctional Scale Last Admin: 10/15/17 05:50 Dose: 6 unit Insulin Human Lispro (Humalog) 0 units SC .BEDTIME SLIDING SC PRN PRN Reason: Bedtime Correctional Scale Last Admin: 10/14/17 22:54 Dose: 4 unit Labetalol HCl (Normodyne) 20 mg SLOW IVP Q4H PRN PRN Reason: Systolic BP > 180 Levothyroxine Sodium (Synthroid) 175 mcg PO 0600 [facility] Last Admin: 10/15/17 05:38 Dose: 175 mcg Loperamide HCl (Imodium) 2 mg PO PRN PRN PRN Reason: Diarrhea/Loose Stools Loratadine (Claritin) 10 mg PO DAILYPRN PRN PRN Reason: Sinus Symptoms Magnesium Hydroxide (Milk Of Magnesium) 30 ml PO DAILYPRN PRN PRN Reason: Constipation Mineral Oil/White Petrolatum (Eucerin Cream) 0 gm TOP BIDPRN PRN PRN Reason: Dry Skin Miscellaneous Medication (Pharmacy To Dose) 1 each IVPB PRN PRN PRN Reason: Pharmacy to dose Morphine Sulfate (Morphine) 2 mg SLOW IVP Q4H PRN PRN Reason: Severe Pain (7-10) Last Admin: 10/15/17 06:21 Dose: 2 mg Nitroglycerin (Nitrostat) 0.4 mg SL Q5MIN PRN PRN Reason: Chest Pain Ondansetron HCl (Zofran Odt) 4 mg PO Q6H PRN PRN Reason: Nausea/Vomiting Ondansetron HCl (Zofran) 4 mg IVP Q6H PRN PRN Reason: Nausea/Vomiting Phenol (Chloraseptic [place] 180 Ml Bot) 0 ml PO PRN PRN PRN Reason: Sore Throat Saccharomyces Boulardii (Florastor) 250 mg PO DAILY [facility] Last Admin: 10/15/17 08:29 Dose: 250 mg Senna (Senokot) 2 tab PO HSPRN PRN PRN Reason: Constipation Sodium Chloride ([place] Nasal [place] 0.65%) 0 ml EA NARE QIDPRN PRN PRN Reason: Nasal Congestion
--- NOTE | 2017-10-15 11:45 | RAD ---
RIGHT FOOT THREE VIEWS: History: 72-year-old male with history of right second toe infection. FINDINGS: Status post amputation changes of the first toe at the level of the proximal first metatarsal and amp utation of the second toe at the level of the metatarsal phalangeal joint. There is some soft tissue swelling overlying this region. There also appears to be amputation changes of the distal third toe i ncluding the distal phalanx. The fourth toe shows some soft tissue swelling distally and there appear to be some destructive changes of the distal phalanx, worrisome for the possibility of osteomyelitis of the distal phalanx. There is some narrowing of the distal aspect of the distal phalanx of the fif th toe without overt bony destruction. IMPRESSION: Status post multiple amputation changes. Soft tissue swelling at the level of the second toe amputati on site without overt bony destructive changes of the second metatarsal. Soft tissue swelling of the fourth toe with destructive changes of the distal phalanx, evidence for osteomyelitis of the distal p halanx of the fourth toe. POS: BRIJESH
[2017-10-15] MEDS ORDERED: Piperacillin/Tazobactam 3.375 GM in Sodium Chloride 0.9% 100 ML IVPB SCH (12:00)
--- NOTE | 2017-10-15 13:39 | CON ---
DATE OF CONSULTATION: 10/15/2017 HISTORY OF PRESENT ILLNESS: Mr. Cruz is a 72-year-old gentleman who I evaluated in July for coron iza bypass grafting - he was deemed a nonoperative candidate due to overwhelming medical illness. He is currently in the hospital with "sepsis" although the patient does not appear to be in any medic al distress currently. He has a history of uncontrolled medical problems - he receives intermittent medical care at the [facility]. He has had multiple toes on the right foot amputated. He has had a left tra nsmetatarsal amputation. He continues to smoke. He has coronary artery disease with chronic systoli c and diastolic heart failure. He has uncontrolled diabetes. He has alcoholic cirrhosis with histor y of previous GI bleed. He presents now with a right toe that has osteomyelitis on x-ray. Dr. Monte asked me to evaluate hi s vascular status. PAST MEDICAL HISTORY: As above. PAST SURGICAL HISTORY: As above. CURRENT MEDICATIONS: Noted. ALLERGIES: None. REVIEW OF SYSTEMS: Not performed. PHYSICAL EXAMINATION: GENERAL: The patient is resting comfortably in bed. VITAL SIGNS: Heart rate is 95 and regular, blood pressure 104/54, oxygen saturations 94% on room air . LUNGS: Clear bilaterally. HEART: Rhythm is regular. ABDOMEN: Soft and nontender. EXTREMITIES: No edema. There is a right second toe that is erythematous and has crust on the outsid e. X-ray show it to have osteomyelitis that is dry. VASCULAR: Palpable carotid, radial, femoral, and popliteal pulses bilaterally. On the right the pos terior tibial artery has a triphasic signal at the ankle with a good amplitude. ASSESSMENT AND PLAN: I would not do any further vascular studies on this gentleman. He is not a can didate for any open operation. He has good enough blood flow that even if he needs an amputation of his toe it should heal.
--- NOTE | 2017-10-15 13:44 | HP ---
HISTORY OF PRESENT ILLNESS: John Cruz is a 72-year-old male patient with a history of coron iza artery disease, inoperable, felt not to be a good candidate by Dr. Rose, who saw him earlier thi s year and by the [facility] he was referred to. He continues to smoke a pack and half a day, although when asked he states he quit smoking; I asked him when, he says a day and a half ago. Patient complains o f pain in his right foot at night. He hangs his foot off the side of the bed. He has PAD with a his tory of stent placed in the left leg, at [facility] in [place]. He has pain in his right foot at [facility] and hangs his foot off the side of the bed. He has had a left transmetatarsal amputation. He has had amputation of multiple toes, right foot, and has had including amputation of toes 4 and 5. He h as had amputation of the fourth toe through the metatarsophalangeal joint and the fifth toe through t he proximal metatarsal. He has an infection of the right fourth toe and x-rays I have ordered reveal changes consistent with osteomyelitis. Distal phalanx is impaired. On evaluation, he has palpable popliteal pulses on the right, but nonpalpable pedal pulses. He has dependent rubor in the right anne t. All of these findings are consistent with PAD. Patient was admitted with sepsis. CT scan of abd omen and pelvis, 10/14/2017, reveals wedge-shaped opacities in the spleen, suspicious for splenic inf arct, severe arteriosclerosis of the aorta, changes of cirrhosis in the liver, surgically absent gall bladder. PAST MEDICAL HISTORY: He has a history in the past of ascites, alcoholism, tobacco abuse. ALLERGIES: None. SOCIAL HISTORY: Tobacco 1/2 pack per day. Alcohol abuse history. MEDICATIONS AT HOME: Trazodone, tramadol, metformin, clonidine, thiamine, Protonix, eye drops, lisin opril, levothyroxine, Lactobacillus insulin, gabapentin, furosemide. PAST SURGICAL HISTORY: Cholecystectomy; stents, left leg; cardiac catheterization noting severe raul nary artery disease, felt not to be a candidate for surgery due to multiple medical problems and cirr hosis; colonoscopy, 2015; EGD, 2017, 2014, and 2015; multiple amputations, feet, transmetatarsal ampu tation on left and amputation of fourth and fifth toes on right. PHYSICAL EXAMINATION: LUNGS: Clear to auscultation. CARDIAC: Regular rate and rhythm without murmur, rub, or gallop. ABDOMEN: Soft, nontender. EXTREMITIES: Palpable femoral and popliteal pulses bilaterally. Transmetatarsal amputation on left and status post amputations on right fourth and fifth toes. Right second toe severe, looks swollen w ithout cellulitis. There is no wet gangrene. There are chronic inflammatory changes present, selvin arita LABORATORY DATA: White count 4, hemoglobin 10, BUN 23, creatinine 1.05. ASSESSMENT AND PLAN: 1. Peripheral artery disease with osteomyelitis, right second toe distal phalanx. We would recommen d treatment with antibiotics. Amputation carries a significant risk of more proximal amputation. He is at risk for [id number] amputation. His comorbidities are multiple. We would recommend antib iotic treatment and local wound care at this point. This probably will result in more proximal amput ation in the future. 2. Peripheral artery disease. We will ask Dr. Tru Rose to see him. He is very poor candidate for any intervention and this is likely true for his toe. He probably has small vessel disease with ongoing tobacco abuse, diabetes, and hypertension. He clinically has small vessel disease below the knee. He will likely need a below-knee amputation in the future. His toe infection is not the sourc e of any sepsis. 3. Cirrhosis. 4. Tobacco abuse. 5. Alcohol abuse. 6. Coronary artery disease, inoperable, poor operative candidate.
[2017-10-15] MEDS ORDERED: Artificial Tears 18 DROP/0.9 ML EA EYE PRN (16:31)
[2017-10-15] MEDS ORDERED: Dextrose 5% in Water 1,000 ML IV PRN (16:31)
[2017-10-15] MEDS ORDERED: Diabetic Tussin 200 MG/10 ML UDCUP PO PRN (16:31)
[2017-10-15] MEDS ORDERED: Dextrose 50% Abboject 50 ML SYRINGE SLOW IVP PRN (16:31)
[2017-10-15] MEDS ORDERED: Mag-Al 1200 mg/1200 mg/30 ML UDCUP PO PRN (16:31)
[2017-10-15] MEDS ORDERED: hydrALAZINE 20 MG/ML VIAL SLOW IVP PRN (16:32)
[2017-10-15] MEDS ORDERED: Labetalol HCl 100 MG/20 ML VIAL SLOW IVP PRN (16:32)
[2017-10-15] MEDS ORDERED: Loratadine 10 MG TAB PO PRN (16:32)
[2017-10-15] MEDS ORDERED: Eucerin (Mineral Oil/Petrolatum,White) 30 gm Jar TOP PRN (16:32)
[2017-10-15] MEDS ORDERED: Loperamide HCl 2 MG CAP PO PRN (16:32)
[2017-10-15] MEDS ORDERED: Sodium Chloride 0.65% Nasal 44 ML BOT EA NARE PRN (16:33)
[2017-10-15] MEDS ORDERED: Nitroglycerin 0.4 MG TAB (25 Tab Bottle) SL PRN (16:33)
[2017-10-15] MEDS ORDERED: Ondansetron HCl/PF 4 MG/2 ML Vial IVP PRN (16:33)
[2017-10-15] MEDS ORDERED: Ondansetron ODT 4 MG TAB PO PRN (16:33)
[2017-10-15] MEDS ORDERED: Senokot 8.6 MG TAB PO PRN (16:33)
[2017-10-15] MEDS ORDERED: Chloraseptic Spray 180 ml Bottle PO PRN (16:33)
[2017-10-15] MEDS: Carvedilol 6.25 MG TAB PO SCH (16:55)
--- NOTE | 2017-10-15 19:44 | CON ---
DATE OF CONSULTATION: 10/15/2017 REASON FOR CONSULTATION: Bacteremia. HISTORY OF PRESENT ILLNESS: A 72-year-old patient who has a history of coronary disease, type 2 diabetes mellitus and cirrhosis of the liver, who was admitted in July this year with a primary diagnosis of non-ST segment elevation myocardial infarction secondary 3-vessel coronary disease and decreased ejection fraction and a left upper lobe lung cavitary lesion. Because of his lung lesion and the cirrhosis, it was felt that he was not a candidate for coronary artery bypass graft surgery and he was managed conservatively. The patient was discharged on aspirin, Coreg, insulin, gabapentin, lisinopril, among other medications and he normally goes to the [facility] and has continued to smoke. Then day and a half before admission developed pain in the right foot. A CT of abdomen and pelvis showed wedge-shaped opacities in the spleen and we have 2 sets of blood cultures positive for methicillin-resistant Staphylococcus aureus, currently Mr. Cruz is awake. He is in the ICU, lying supine in bed, appears in no distress except for pain in the C-spine and lower back spine area, which he grades as intense 8-9/10. Denies any headaches, no visual symptoms, sore throat , odynophagia or dysphagia, no dyspnea, no abdominal pain, no genitourinary symptoms except for the indwelling Viramontes catheter. PAST MEDICAL HISTORY: Includes coronary artery disease, alcoholism, liver cirrhosis, chronic smoking, poor hypertension, triple vessel disease, CHF of the low ejection fraction, peripheral vascular disease with previous revascularization and partial amputations of the feet. ALLERGIES: None. SOCIAL HISTORY: Current smoker and prior history of alcoholism. MEDICATIONS: Albuterol, amiodarone, budesonide, cefepime, duloxetine, insulin, levofloxacin, and vancomycin. PAST SURGICAL HISTORY: Cholecystectomy; lower extremities stenting; colonoscopies; EGD; multiple toe amputations, lower extremities. FAMILY HISTORY: Noncontributory. PHYSICAL EXAMINATION: VITAL SIGNS: T-max 102.2, blood pressure 106/58, pulse 96, respirations 20. SKIN: I believe it is the fourth toe, right foot with necrotic gangrenous appearance. The patient has a peripheral IV access and a Viramontes catheter. No lymphadenopathy. HEENT: Ocular movements conjugate. Sclerae white. Pupils are 2 mm and reactive. Oral cavity with numerous missing teeth. NECK: Supple. LUNGS: Symmetric air entry. HEART: Diminished heart sounds. There is a soft murmur at the pulmonic area in apex and indistinct S2, possible diastolic murmur at the left parasternal border. ABDOMEN: Soft, flat, not distended. No ascites. No bladder distention. EXTREMITIES: No joint inflammatory activity except for the toe. NEUROLOGIC: Cognitive function, he is awake, oriented, follows commands. LABORATORY DATA: White cell count 4.9, hemoglobin 10, MCV 90, platelets 79,000 , 85% neutrophils. Sodium 134, creatinine 1.05, calcium 7.6, AST 47, ALT 38, alkaline phosphatase 107, albumin 2.5. TSH 0.24. Urinalysis with greater than 50 RBCs, WBC 0-3. Toxic screen was reviewed. IMAGING STUDIES: Foot x-ray with multiple amputations changes, soft tissue swelling, second toe amputation site, soft tissue swelling fourth toe with destructive changes distal phalanx. Abdomen and pelvis CT scan evidence of cirrhosis, wedge shaped opacities involving the spleen suggesting areas of splenic infarction. ASSESSMENT: 1. Alcoholism and liver cirrhosis. 2. Coronary artery disease with a lower ejection fraction. 3. Cavitary lung lesion detected a few months ago. 4. Methicillin-resistant Staphylococcus aureus bacteremia with splenic lesions. 5. Ischemic fourth toe with gangrene. 6. Pain in the C-spine and lumbosacral spine of new onset. DISCUSSION: The differential diagnosis includes endocarditis with splenic infarcts, possible embolic lesions elsewhere as well as the foot area. The foot ischemia could be secondary to the underlying peripheral vascular disease and hemodynamic instability associated with sepsis. The patient has severe spine pain and the possibility of C-spine and lumbosacral spine. Diskitis, osteomyelitis and epidural abscess need to be considered. Discontinue cefepime , continue vancomycin, trough level target 15-20 mcg. Echocardiogram, may need [place] and will need MRI of the C-spine and lumbosacral spine area to evaluate the above possibilities. MTDD
[2017-10-15 20:58] LABS: Bilirubin Moderate (Negative); Blood, Urine Large (Negative); Clarity CLOUDY (Clear); Glucose, Urine (Dipstick) 100 mg/dL (Negative); Leukocyte Small (Negative); Nitrite Positive (Negative); Protein, Urine (Dipstick) 100 mg/dL (Neg-Trace); Specific Gravity, Urine 1.022 (1.002-1.036)
[2017-10-15 21:00] LABS: Bacteria/HPF None Seen HPF (None Seen); Hyaline Casts/LPF 0-3 HYALINE CAST LPF (0-3 Hyaline); Pathc Cast-AUWi Flag 0.58 (0-2.49); RBC/HPF GREATER THAN 50-TNTC HPF (0-3); Squamous Epithelial 0-3 HPF (0-3)
--- NOTE | 2017-10-16 01:01 | CON ---
DATE OF CONSULTATION: 10/15/2017. REASON FOR CONSULTATION: Coronary artery disease, tachycardia, atrial fibrillation. PRIMARY WWE WRESTLER: Catherine Amin M.D. HISTORY OF PRESENT ILLNESS: Mr. Cruz is a 72-year-old gentleman. He recently underwent cardiac ca theterization and was found to have a severe inoperable coronary artery disease. He subsequently was brought back to the hospital yesterday. He was noted to have severe tachycardia and fever and thoug ht to be possibly septic. He also had atrial fibrillation with a rapid rate. The patient's only complaint initially was back pain. REVIEW OF SYSTEMS: Constitutional: Positive for weakness, fatigue. Vision: No changes. Hearing: No changes. Pulmonary: Positive for shortness of breath. Cardiac: No chest pain or pressure. Ga strointestinal: No nausea, vomiting, diarrhea. Skin: No rashes. Neurologic: No unilateral weakne ss or numbness. Psychiatric: No unusual depression or anxiety. Hematologic: No unusual bruising. CURRENT MEDICATIONS: He is on intravenous amiodarone. ALLERGIES: None known. FAMILY HISTORY: Negative for heart disease at a young age. PHYSICAL EXAMINATION: GENERAL: He is an ill-appearing elderly gentleman. VITAL SIGNS: Blood pressure 95/53, pulse 90, it is now sinus with frequent PACs. HEENT: Eyes, sclerae nonicteric. Mouth, mucous membranes moist. NECK: Supple, no lymphadenopathy. LUNGS: Clear. CARDIOVASCULAR: Regular with occasional premature contractions. I do not hear murmur, rub or gallop . ABDOMEN: Soft, nontender. EXTREMITIES: No clubbing or cyanosis. There is no edema. He has some blackish discoloration of the toe on the right foot. LABORATORY DATA AND X-RAY FINDINGS: Hemoglobin is 10.3. EKG showed initially AFib with a rapid rate , rate of 170 now, some PACs. ASSESSMENT: 1. Atrial fibrillation with a rapid rate. 2. Inoperable coronary artery disease, peripheral vascular disease. 3. ? Sepsis. PLAN: 1. Echocardiogram to evaluate the valves. 2. Amiodarone for the atrial fibrillation. 3. Dr. Amin will resume patient's care tomorrow.
[2017-10-16] MEDS: Vancomycin HCl 1.25 GM in Sodium Chloride 0.9% 250 ML 250 ML IVPB SCH (02:11)
[2017-10-16] MEDS: Sodium Chloride 0.9% 1,000 ML IV SCH ×3 (02:19→23:01)
--- NOTE | 2017-10-16 02:35 | CON ---
DATE OF CONSULTATION REPORT: 10/15/2017 REASON FOR CONSULTATION: 1. Apparent urosepsis. 2. Inability to void. 3. Dislodged or misplaced catheter with gross hematuria. HISTORY OF PRESENT ILLNESS: Mr. John Cruz is a 72-year-old white male with multiple medical problems. He has a history of coronary artery disease, which is inoperable and was admitted to the [facility] on 10/14/2017 for possible endocarditis. Patient had general presentation of sepsis at admission. He had indwelling Viramontes catheter that was placed in [place] and this catheter was removed to this morning due to no urine output. Patient's catheter after removal had gross blood per urethra. This is a completely subsided at this point. Medical staff notes abnormal appearance of the patient's phallus. PAST MEDICAL HISTORY: 1. Alcoholism. 2. Ascites. 3. Peripheral vascular disease with multiple amputations. 4. Tobacco abuse history. 5. Diabetes mellitus. PAST SURGICAL HISTORY: 1. Cholecystectomy. 2. Stents of the left leg. 3. Multiple amputations of the feet including tarsometatarsal amputation on the left and amputation of rays 4 and 5 on the right side. ALLERGIES: No known drug allergies. HOME MEDICATION LIST: Includes the followin. Trazodone. 2. Tramadol. 3. Metformin. 4. Clonidine. 5. Thiamin. 6. Protonix. 7. Lisinopril. 8. Levothyroxine. 9. Insulin. 10. Gabapentin. 11. Furosemide. SOCIAL HISTORY: Patient has a half pack per day cigarette smoking history as well as past alcohol abuse history. PHYSICAL EXAMINATION: VITAL SIGNS: Patient's current blood pressure is 95/53, pulse is 97, respiratory rate 16, O2 saturations 99%. GENERAL: This is a poorly responsive elderly white male who appears ill evaluated in an intensive care unit setting. He is hooked to electrocardiographic monitor. Patient is not coherent enough to provide adequate review of systems today. HEAD, EYES, EARS, NOSE, AND THROAT: Extraocular movements appear to be intact. Oropharynx is clear. NECK: Supple. LUNGS: Clear bilaterally. CARDIAC: Regular rate and rhythm. ABDOMEN: Soft and nontender. There may be a little bit of tenderness on palpation of the suprapubic area. Percussion reveals increased resonance in all 4 quadrants consistent with probable ileus. BACK: There is no true costovertebral angle tenderness on exam today, although the patient reported back pain as one of his admission complaints. There is a sacral decubitus prevention pad secured in position. GENITOURINARY: Testes are present in the scrotum. Phallus has undergone probable iatrogenic hypospadias from chronic indwelling catheter use. it is splayed and there is a proximal hypospadias entry point. 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 Palpation of inguinal canal did not find a hernia. RECTAL: Digital rectal examination is performed. This finds a massively enlarged spongy and minimally tender prostate gland. I note, the patient is diabetic and has some fullness to his prostate gland. EXTREMITIES: Distal left extremity has undergone a tarsometatarsal amputation. There is no gangrene or spots on that what is left with that foot. On right side, I believe this is ray 2, as he has undergone previous amputations, ray 2 appears to have gangrene. Rays 1 and probably 3 appear to be without evidence of gangrene at the present time. LABORATORY STUDIES: Patient's white count is 4,900 on 10/15/2017, hemoglobin 10.3, hematocrit 30.4. There is 85.1% neutrophils. Serum chemistry showed the patient's blood urea nitrogen at 23, creatinine 1.05, glucose was elevated at 312 on admission. C-reactive protein was elevated to 26.14. Patient did undergo an abdomen and pelvis CT on 10/14/2017. He had what appeared to be a decompressed bladder based on the presence of a Viramontes catheter at the time of admission. Patient had wedge-shaped opacities and spleen suggestive of a splenic infarct. There were no specific findings other than symmetric enhancement of the kidneys bilaterally with no evidence of obstructive uropathy. MICROBIOLOGY: His urine culture obtained on 10/14/2017, showed no growth at 24 hours. CRITICAL CARE PROCEDURE: Viramontes catheter insertion was performed today. Based on the oral history, I believe this patient probably had a dislodged catheter, but based on that a trial of passage of a hematuria catheter would be appropriate. Patient was prepped in the usual sterile fashion. A 5 mL of 2% viscous lidocaine was instilled via the hypospadias opening. A 22-[place] three-way hematuria catheter was placed without difficulty into the patient's bladder. We inflated the balloon to 50 mL. Urine returned relatively dark color with cloudiness to it suggestive of a degree of hematuria as well as pyuria. ASSESSMENT: 1. Urinary retention, likely secondary to prostatitis and acute exacerbation of probable chronic prostatitis. 2. Probable history of chronic urinary retention likely secondary to diabetes and prostate sources. Patient appears to have relatively atonic bladder. He had 800 mL in the drainage bag, after drainage of his bladder today and was relatively asymptomatic to it. This suggests a degree of neurogenic bladder in addition to his outlet obstruction issues with the enlarged prostate. 3. Acute prostatitis. Patient should be kept on a long-term course of antibiotic therapy. Once the organism is isolated from patient's urine on this fresh catheterization, the patient should be treated with appropriate long-term antibiotics that would cover his probable UTI and a terminal gauger supervisor course should be used for prostate infection/prostatitis. 4. Hematuria concerns, this appears to be related either to infection or trauma associated with a catheter that was dislodged, probably into his prostatic urethra based on the findings. Over 80 minutes of Critical Care Time , including evaluation and assessment time was spent in the care of this patient, over of which was in face to face evaluation, or in coordination of care, or in communication with the patient's family regarding care, exclusive of any procedures performed, [id number]. [facility]
[2017-10-16] MEDS: HYDROcodone/Acetaminophen 10/325 mg Tablet PO PRN ×3 (03:33→15:33)
[2017-10-16] MEDS: Levothyroxine 175 MCG TAB PO SCH (05:47)
[2017-10-16] MEDS: Carvedilol 6.25 MG TAB PO SCH ×2 (08:43→16:42)
[2017-10-16] MEDS: DULoxetine 30 MG CAP PO SCH (08:43)
[2017-10-16] MEDS: Saccharomyces boulardii 250 MG CAP PO SCH (08:43)
[2017-10-16] MEDS: Gabapentin 300 MG CAP PO SCH ×3 (08:43→20:31)
[2017-10-16] MEDS: Insulin Glargine 10 UNITS in Pre-Filled Syringe 1 EACH SC SCH ×2 (08:45→20:31)
[2017-10-16] MEDS ORDERED: Lorazepam 2 MG/ML VIAL SLOW IVP SCH (10:00)
[2017-10-16] MEDS: Budesonide 0.5 MG/2 ML NEB INH SCH ×2 (10:08→18:50)
--- NOTE | 2017-10-16 11:02 | PDOC.PN ---
- Subjective Encounter Start Date: 10/16/17 Encounter Start Time: 09:10 Patient seen and examined for sepsis, . No new complaints. No overnight events - Objective Resuscitation Status: Resuscitation Status FULL:Full Resuscitation MAR Reviewed: Yes Vital Signs & Weight: Vital Signs (12 hours) Temp Pulse Resp BP Pulse Ox 10/16/17 08:43 116/62 10/16/17 08:00 98.3 F 102 H 17 93 L 10/16/17 07:00 97.9 F 10/16/17 04:00 98.7 F Weight Admit Weight 183 lb Weight 183 lb 13.848 oz Most Recent Monitor Data Heart Rate from ECG 100 NIBP 108/58 NIBP BP-Mean 65 Respiration from ECG 19 SpO2 93 I&O: 10/15/17 10/16/17 10/17/17 06:59 06:59 06:59 Intake Total 1524 3848 320 Output Total 893 2000 405 Balance 631 1848 -85 Result Diagrams: 10/15/17 04:00 10/15/17 04:00 Additional Labs: Accuchecks 10/16/17 10/15/17 10/15/17 05:48 20:26 16:10 POC Glucose 151 H 156 H 179 H 10/15/17 12:22 POC Glucose 255 H Phys Exam - Physical Examination Constitutional: NAD HEENT: PERRLA, moist MMs, sclera anicteric Neck: no JVD, supple Respiratory: no wheezing, no rales, no rhonchi Cardiovascular: RRR, no rub SM+ Gastrointestinal: soft, non-tender, no distention, positive bowel sounds Musculoskeletal: no edema, pulses present Neurological: non-focal, normal sensation Lymphatic: no nodes Psychiatric: normal affect, A&O x 3 Skin: no rash, normal turgor Dx/Plan (1) Acute kidney failure Status: Acute (2) Atrial fibrillation with rapid ventricular response Code(s): I48.91 - UNSPECIFIED ATRIAL FIBRILLATION Status: Acute (3) Demand ischemia of myocardium Code(s): I24.8 - OTHER FORMS OF ACUTE ISCHEMIC HEART DISEASE Status: Acute (4) Hematuria, gross Status: Acute (5) Hyponatremia Code(s): E87.1 - HYPO-OSMOLALITY AND HYPONATREMIA Status: Acute (6) Lactic acidosis Code(s): E87.2 - ACIDOSIS Status: Acute (7) Sepsis with acute organ dysfunction Code(s): A41.9 - SEPSIS, UNSPECIFIED ORGANISM; R65.20 - SEVERE SEPSIS WITHOUT SEPTIC SHOCK Status: Acute (8) Splenic infarct Code(s): D73.5 - INFARCTION OF SPLEEN Status: Acute (9) 3-vessel CAD Status: Chronic (10) Alcoholic cirrhosis of liver Code(s): K70.30 - ALCOHOLIC CIRRHOSIS OF LIVER WITHOUT ASCITES Status: Chronic (11) Anemia, macrocytic Code(s): D53.9 - NUTRITIONAL ANEMIA, UNSPECIFIED Status: Chronic (12) Anxiety and depression Code(s): F41.9 - ANXIETY DISORDER, UNSPECIFIED; F32.9 - MAJOR DEPRESSIVE DISORDER, SINGLE EPISODE, UNSPECIFIED Status: Chronic (13) COPD (chronic obstructive pulmonary disease) Status: Chronic (14) Chronic combined systolic and diastolic CHF (congestive heart failure) Code(s): I50.42 - CHRONIC COMBINED SYSTOLIC AND DIASTOLIC HRT FAIL Status: Chronic (15) DM type 2 (diabetes mellitus, type 2) Status: Chronic Qualifiers: Diabetes mellitus fdc insulin use: with parts counterman use Diabetes mellitus complication status: without complication Qualified Code(s): E11.9 - Type 2 diabetes mellitus without complications; Z79.4 - jail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; Z79.4 - jail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; Z79.4 - parts counterman ( 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; Z79.4 - parts counterman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 (16) Dyslipidemia Code(s): E78.5 - HYPERLIPIDEMIA, UNSPECIFIED Status: Chronic (17) GERD (gastroesophageal reflux disease) Code(s): K21.9 - GASTRO-ESOPHAGEAL REFLUX DISEASE WITHOUT ESOPHAGITIS Status: Chronic (18) HTN (hypertension) Code(s): I10 - ESSENTIAL (PRIMARY) HYPERTENSION Status: Chronic (19) Hypoalbuminemia due to protein-calorie malnutrition Code(s): E46 - UNSPECIFIED PROTEIN-CALORIE MALNUTRITION Status: Chronic (20) Hypothyroidism Code(s): E03.9 - HYPOTHYROIDISM, UNSPECIFIED Status: Chronic (21) PVD (peripheral vascular disease) Code(s): I73.9 - PERIPHERAL VASCULAR DISEASE, UNSPECIFIED Status: Chronic (22) Protein-calorie malnutrition, moderate Code(s): E44.0 - MODERATE PROTEIN-CALORIE MALNUTRITION Status: Chronic (23) Thrombocytopenia Code(s): D69.6 - THROMBOCYTOPENIA, UNSPECIFIED Status: Chronic (24) Tobacco abuse Code(s): Z72.0 - TOBACCO USE Status: Chronic (25) Aortic stenosis Code(s): I35.0 - NONRHEUMATIC AORTIC (VALVE) STENOSIS Status: Chronic (26) Bacteremia due to methicillin resistant Staphylococcus aureus Code(s): R78.81 - BACTEREMIA Status: Acute (27) Gangrene of toe of right foot Code(s): I96 - GANGRENE, NOT ELSEWHERE CLASSIFIED Status: Acute - Plan cont current plan of care, continue antibiotics * will give altivan for clostrophobia for MRI * today MRI cervical and lumbar spine * will repeat blood culture tomorrow * transfer to tele * echo today * continue amiodarone * general surgery recommendation noted * cardiology following * ID following * monitor hematuria. Review of Systems - Review of Systems Eyes: negative: Pain, Vision Change, Conjunctivae Inflammation, Eyelid Inflammation, Redness, Other ENT: negative: Ear Pain, Ear Discharge, Nose Pain, Nose Discharge, Nose Congestion, Mouth Pain, Mouth Swelling, Throat Pain, Throat Swelling, Other Respiratory: negative: Cough, Dry, Shortness of Breath, Hemoptysis, SOB with Excertion, Pleuritic Pain, Sputum, Wheezing Cardiovascular: negative: chest pain, palpitations, orthopnea, paroxysmal nocturnal dyspnea, edema, light headedness, other Gastrointestinal: negative: Nausea, Vomiting, Abdominal Pain, Diarrhea, Constipation, Melena, Hematochezia, Other Genitourinary: negative: Dysuria, Frequency, Incontinence, Hematuria, Retention , Other Musculoskeletal: Neck Pain, Back Pain. negative: Shoulder Pain, Arm Pain, Hand Pain, Leg Pain, Foot Pain, Other - Medications/Allergies Allergies/Adverse Reactions: Allergies Allergy/AdvReac Type Severity Reaction Status Date / Time No Known Allergies Allergy Unverified 07/23/17 10:34 Medications: Current Medications Acetaminophen (Tylenol) 650 mg PO Q4H PRN PRN Reason: Headache/Fever or Pain Hydrocodone Bitart/Acetaminophen ([place] 10/325) 1 tab PO Q4H PRN PRN Reason: Moderate Pain (4-6) Last Admin: 10/16/17 08:43 Dose: 1 tab Al Hydroxide/Mg Hydroxide (Maalox) 30 ml PO Q6H PRN PRN Reason: Heartburn or Indigestion Albuterol/Ipratropium (Duoneb) 3 ml NEB [id number] [facility] Last Admin: 10/16/17 10:09 Dose: Not Given Artificial Tears (Tears Naturale) 0 drop EA EYE PRN PRN PRN Reason: Dry Eyes Budesonide (Pulmicort Neb Solution) 0.5 mg INH BID-RT [facility] Last Admin: 10/16/17 10:08 Dose: Not Given Carvedilol (Coreg) 6.25 mg PO BID-WM [facility] Last Admin: 10/16/17 08:43 Dose: 6.25 mg Dextrose/Water (Dextrose 50%) 25 gm SLOW IVP PRN PRN PRN Reason: Hypoglycemia Duloxetine HCl (Cymbalta) 30 mg PO DAILY [facility] Last Admin: 10/16/17 08:43 Dose: 30 mg Gabapentin (Neurontin) 300 mg PO TID [facility] Last Admin: 10/16/17 08:43 Dose: 300 mg Glucagon (Glucagon) 1 mg IM PRN PRN PRN Reason: Hypoglycemia Guaifenesin (Robitussin Sf) 200 mg PO Q4H PRN PRN Reason: Cough Hydralazine HCl (Apresoline) 10 mg SLOW IVP Q4H PRN PRN Reason: Systolic BP > 180 Amiodarone HCl 450 mg/Miscellaneous Medication 1 each/ Dextrose/Water 259 mls @ 0 mls/hr IVPB INF [facility]; As Directed PRN Reason: Protocol Dextrose/Water (D5w) 1,000 mls @ 0 mls/hr IV .Q0M PRN; As Directed PRN Reason: Hypoglycemia Sodium Chloride (Normal Saline 0.9%) 1,000 mls @ 100 mls/hr IV .Q10H [facility] Last Admin: 10/16/17 02:19 Dose: 1,000 mls Insulin Glargine 10 units/ (Miscellaneous Medication) 0.1 mls @ 0 mls/hr SC BID [facility] Last Admin: 10/16/17 08:45 Dose: 0.1 mls Vancomycin HCl 1.25 gm/ Sodium (Chloride) 250 mls @ 166.667 mls/hr IVPB 0030 [facility] Last Admin: 10/16/17 02:11 Dose: 250 mls Insulin Human Lispro (Humalog) 0 units SC .MODERATE SLIDING SC PRN PRN Reason: Moderate Correctional Scale Insulin Human Lispro (Humalog) 0 units SC .BEDTIME SLIDING SC PRN PRN Reason: Bedtime Correctional Scale Labetalol HCl (Normodyne) 20 mg SLOW IVP Q4H PRN PRN Reason: Systolic BP > 180 Levothyroxine Sodium (Synthroid) 175 mcg PO 0600 [facility] Last Admin: 10/16/17 05:47 Dose: 175 mcg Loperamide HCl (Imodium) 2 mg PO PRN PRN PRN Reason: Diarrhea/Loose Stools Loratadine (Claritin) 10 mg PO DAILYPRN PRN PRN Reason: Sinus Symptoms Lorazepam (Ativan) 2 mg SLOW IVP NOW [facility] Stop: 10/16/17 12:00 Last Admin: 10/16/17 10:06 Dose: 2 mg Magnesium Hydroxide (Milk Of Magnesium) 30 ml PO DAILYPRN PRN PRN Reason: Constipation Mineral Oil/White Petrolatum (Eucerin Cream) 0 gm TOP BIDPRN PRN PRN Reason: Dry Skin Miscellaneous Medication (Pharmacy To Dose) 1 each IVPB PRN PRN PRN Reason: Pharmacy to dose Morphine Sulfate (Morphine) 2 mg SLOW IVP Q4H PRN PRN Reason: Severe Pain (7-10) Nitroglycerin (Nitrostat) 0.4 mg SL Q5MIN PRN PRN Reason: Chest Pain Ondansetron HCl (Zofran Odt) 4 mg PO Q6H PRN PRN Reason: Nausea/Vomiting Ondansetron HCl (Zofran) 4 mg IVP Q6H PRN PRN Reason: Nausea/Vomiting Phenol (Chloraseptic [place] 180 Ml Bot) 0 ml PO PRN PRN PRN Reason: Sore Throat Saccharomyces Boulardii (Florastor) 250 mg PO DAILY [facility] Last Admin: 10/16/17 08:43 Dose: 250 mg Senna (Senokot) 2 tab PO HSPRN PRN PRN Reason: Constipation Sodium Chloride ([place] Nasal [place] 0.65%) 0 ml EA NARE QIDPRN PRN PRN Reason: Nasal Congestion
[2017-10-16] MEDS: HumaLOG 300 UNITS/3 ML VIAL SC PRN (11:49)
--- NOTE | 2017-10-16 13:27 | PRG ---
DATE OF SERVICE: 10/16/2017 He is complaining of back pain. He was given lorazepam for an attempted at an MRI, but he could not hold still. He was noted to be snoring during the MRI. The images were of poor quality, so the proc edure was terminated. PHYSICAL EXAMINATION: VITAL SIGNS: Heart rate 93, blood pressure 118/60, respiratory rate 22, oximetry is 98. LUNGS: Clear. CARDIOVASCULAR: Regular rhythm. ABDOMEN: Soft. EXTREMITIES: Without edema. NEUROLOGIC: Grossly nonfocal. LABORATORY: There is no new lab today. Microbiology shows Staph aureus growing out of 2 blood cultures from 10/14/2017. IMPRESSION: 1. Staph aureus bacteremia with severe back pain. Obviously, the concern is about diskitis or a par aspinous abscess. 2. Chronic obstructive pulmonary disease. 3. Status post CT abdomen and pelvis CT 10/14/2017 which shows a wedge shaped abnormalities in the s pleen suggestive of Staph emboli. This is worrisome for endocarditis. He at this time is stable, but remains quite ill. Other problems include atrial fibrillation and yaharia perable coronary artery disease and peripheral vascular disease.
[2017-10-16] MEDS: Amiodarone HCl 450 MG in Dextrose 5% in Water 250 ML IVPB SCH ×2 (15:50→20:33)
[2017-10-16] MEDS ORDERED: Digoxin 0.5 MG/2 ML AMP SLOW IVP SCH (21:30)
[2017-10-17 00:19] LABS: Vancomycin, Trough 11.4 ug/mL
[2017-10-17] MEDS: HYDROcodone/Acetaminophen 10/325 mg Tablet PO PRN ×3 (00:53→12:54)
[2017-10-17] MEDS ORDERED: Vancomycin HCl 1.25 GM in Sodium Chloride 0.9% 250 ML 250 ML IVPB SCH (01:00)
[2017-10-17] MEDS: Vancomycin HCl 1.25 GM in Sodium Chloride 0.9% 250 ML 250 ML IVPB SCH (01:01)
[2017-10-17] MEDS: Vancomycin HCl 1.5 GM in Sodium Chloride 0.9% 250 ML 300 ML IVPB SCH (01:25)
--- NOTE | 2017-10-17 02:22 | PRG ---
DATE OF SERVICE: 10/16/2017 SUBJECTIVE: The patient has been transferred to [facility]. He is still with quite a bit of pain in his C -spine area and the lumbosacral spine area. He is quite sleepy when I arrived after Ativan. Jonh preciado to the nurse, there have been no respiratory symptoms, no diarrhea. He still has an indwelling [place] catheter. PHYSICAL EXAMINATION: VITAL SIGNS: T-max 98.3, blood pressure 110/67, pulse 113. EXTREMITIES: The toe in the right foot still with inflammatory changes, gangrenous changes. LUNGS: Symmetric air entry. HEART: S1, S2, regular rate. Basilar inspiratory crackles. ABDOMEN: Soft, not distended, but drowsy after Ativan. LABORATORY DATA: White cell count 4.9, hemoglobin 10.3, platelets 79,000. Creatinine 1.05. Microbi ology with the MRSA positive blood cultures, could not have the MRI because of movement during the pr ocedure that was postponed. ASSESSMENT AND DISCUSSION: Alcoholism with liver cirrhosis, coronary artery disease and low ejection fraction, cavitary lung lesion detected a few months ago, MRSA bacteremia splenic lesions, ischemic fourth toe and pain in the C-spine and lumbosacral spine area with concern for infection. Again, the differential diagnosis includes endocarditis with splenic infarcts possible lesions in the spine as noted above. Continue vancomycin with target trough level 15-20 mcg. We will need treatment for prot racted period of time, maybe at least 6-8 weeks depending on the findings of the MRI. We will have t o wait a few days until things stabilize for him to have the MRI taken. The toe will probably have t o be amputated down the road.
[2017-10-17] MEDS ORDERED: Digoxin 0.5 MG/2 ML AMP SLOW IVP SCH (04:00)
[2017-10-17] MEDS: Levothyroxine 175 MCG TAB PO SCH (05:08)
[2017-10-17 05:52] LABS: ALT (SGPT) 43 U/L (8-55); AST (SGOT) 62 U/L (5-34); Albumin 2.3 g/dL (3.4-4.8); Alkaline Phosphatase 278 U/L (40-150); Anion Gap 8 mmol/L (10-20); BUN (Urea Nitrogen) 20 mg/dL (8.4-25.7); Bilirubin, Total 0.9 mg/dL (0.2-1.2); Calc. Creatinine Clearance 100 mL/min (70-130); Calcium 7.8 mg/dL (7.8-10.44); Carbon Dioxide 22 mmol/L (23-31); Chloride 106 mmol/L (98-107); Estimated GFR-MDRD 86; Globulin 3.4 g/dL (2.4-3.5); Glucose 146 mg/dL (83-110); Potassium 3.2 mmol/L (3.5-5.1); Protein, Total 5.7 g/dL (5.8-8.1); Sodium 133 mmol/L (136-145)
[2017-10-17] MEDS: Budesonide 0.5 MG/2 ML NEB INH SCH ×2 (06:38→19:05)
[2017-10-17 06:58] LABS: Band 30 % (5-11); Hemoglobin 9.6 g/dL (14.0-18.0); Lymphocytes 28 % (21-51); MDiff Complete? YES; Mean Corpuscular HGB CONC 32.6 g/dL (32.0-36.0); Mean Corpuscular Hemoglobin 29.5 pg (27.0-31.0); Mean Corpuscular Volume 90.6 fL (78.0-98.0); Mean Platelet Volume 10.9 fL (7.4-10.4); Monocytes 5 % (0-10); Neutrophil 37 % (42-75); PLT Morphology Comment Appears Decreased; Platelet Count 78 thou/uL (130-400); RBC Distribution Width 17.7 % (11.5-14.5); Red Blood Cell (RBC) Count 3.24 mill/uL (4.70-6.10); White Blood Cell (WBC) Count 4.8 thou/uL (4.8-10.8)
[2017-10-17] MEDS: Digoxin 0.125 MG TAB PO SCH (08:22)
[2017-10-17] MEDS: Saccharomyces boulardii 250 MG CAP PO SCH (08:22)
[2017-10-17] MEDS: Gabapentin 300 MG CAP PO SCH ×3 (08:23→21:49)
[2017-10-17] MEDS: DULoxetine 30 MG CAP PO SCH (08:23)
[2017-10-17] MEDS: Carvedilol 6.25 MG TAB PO SCH (08:23)
[2017-10-17] MEDS: Insulin Glargine 10 UNITS in Pre-Filled Syringe 1 EACH SC SCH ×2 (09:00→21:49)
--- NOTE | 2017-10-17 10:17 | PDOC.PN ---
- Subjective Encounter Start Date: 10/17/17 Encounter Start Time: 08:00 Patient seen and examined. he has back pain and neck pain, has hematuria, MRI was not possible yesterday.. No overnight events - Objective Resuscitation Status: Resuscitation Status FULL:Full Resuscitation MAR Reviewed: Yes Vital Signs & Weight: Vital Signs (12 hours) Temp Pulse Resp BP Pulse Ox 10/17/17 09:10 97 159/75 H 10/17/17 08:50 102 H 149/87 H 10/17/17 08:22 104 H 10/17/17 08:10 105 H 176/81 H 10/17/17 08:00 98.3 F 104 H 16 10/17/17 07:10 98.3 F 107 H 16 169/85 H 99 10/17/17 06:38 111 H 16 93 L 10/17/17 03:55 107 H 10/17/17 03:24 99.5 F 99 15 139/72 93 L 10/17/17 00:29 119 H 16 92 L 10/16/17 23:09 105 H 119/65 Weight Admit Weight 183 lb Weight 203 lb 9.6 oz Most Recent Monitor Data Heart Rate from ECG 107 NIBP 110/67 NIBP BP-Mean 83 Respiration from ECG 17 SpO2 97 I&O: 10/16/17 10/17/17 10/18/17 06:59 06:59 06:59 Intake Total 3848 2940.4 Output Total 2000 2820 Balance 1848 120.4 Result Diagrams: 10/17/17 04:28 10/17/17 04:28 Additional Labs: Accuchecks 10/17/17 10/16/17 10/16/17 05:59 20:32 16:44 POC Glucose 152 H 166 H 161 H 10/16/17 11:41 POC Glucose 206 H EKG Reviewed by me: Yes (afib) Phys Exam - Physical Examination Constitutional: NAD HEENT: PERRLA, moist MMs, sclera anicteric Neck: no JVD, supple Respiratory: no rales, wheezing present Cardiovascular: irregular SM+ aortic area Gastrointestinal: soft, non-tender, no distention, positive bowel sounds bravo+ Musculoskeletal: no edema, pulses present Neurological: moves all 4 limbs Lymphatic: no nodes Psychiatric: normal affect Skin: no rash, normal turgor Dx/Plan (1) Acute kidney failure Status: Resolved (2) Atrial fibrillation with rapid ventricular response Code(s): I48.91 - UNSPECIFIED ATRIAL FIBRILLATION Status: Acute Comment: on amiodarone drip (3) Demand ischemia of myocardium Code(s): I24.8 - OTHER FORMS OF ACUTE ISCHEMIC HEART DISEASE Status: Acute (4) Hematuria, gross Status: Acute (5) Hyponatremia Code(s): E87.1 - HYPO-OSMOLALITY AND HYPONATREMIA Status: Acute (6) Lactic acidosis Code(s): E87.2 - ACIDOSIS Status: Acute (7) Sepsis with acute organ dysfunction Code(s): A41.9 - SEPSIS, UNSPECIFIED ORGANISM; R65.20 - SEVERE SEPSIS WITHOUT SEPTIC SHOCK Status: Acute (8) Splenic infarct Code(s): D73.5 - INFARCTION OF SPLEEN Status: Acute (9) 3-vessel CAD Status: Chronic (10) Alcoholic cirrhosis of liver Code(s): K70.30 - ALCOHOLIC CIRRHOSIS OF LIVER WITHOUT ASCITES Status: Chronic (11) Anemia, macrocytic Code(s): D53.9 - NUTRITIONAL ANEMIA, UNSPECIFIED Status: Chronic (12) Anxiety and depression Code(s): F41.9 - ANXIETY DISORDER, UNSPECIFIED; F32.9 - MAJOR DEPRESSIVE DISORDER, SINGLE EPISODE, UNSPECIFIED Status: Chronic (13) COPD (chronic obstructive pulmonary disease) Status: Chronic (14) Chronic combined systolic and diastolic CHF (congestive heart failure) Code(s): I50.42 - CHRONIC COMBINED SYSTOLIC AND DIASTOLIC HRT FAIL Status: Chronic (15) DM type 2 (diabetes mellitus, type 2) Status: Chronic Qualifiers: Diabetes mellitus filler leaf cutter long insulin use: with filler leaf cutter long use Diabetes mellitus complication status: without complication Qualified Code(s): E11.9 - Type 2 diabetes mellitus without complications; Z79.4 - keno terminal operator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; Z79.4 - senior care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; Z79.4 - keno terminal operator ( 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; Z79.4 - senior care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 (16) Dyslipidemia Code(s): E78.5 - HYPERLIPIDEMIA, UNSPECIFIED Status: Chronic (17) GERD (gastroesophageal reflux disease) Code(s): K21.9 - GASTRO-ESOPHAGEAL REFLUX DISEASE WITHOUT ESOPHAGITIS Status: Chronic (18) HTN (hypertension) Code(s): I10 - ESSENTIAL (PRIMARY) HYPERTENSION Status: Chronic (19) Hypoalbuminemia due to protein-calorie malnutrition Code(s): E46 - UNSPECIFIED PROTEIN-CALORIE MALNUTRITION Status: Chronic (20) Hypothyroidism Code(s): E03.9 - HYPOTHYROIDISM, UNSPECIFIED Status: Chronic (21) PVD (peripheral vascular disease) Code(s): I73.9 - PERIPHERAL VASCULAR DISEASE, UNSPECIFIED Status: Chronic (22) Protein-calorie malnutrition, moderate Code(s): E44.0 - MODERATE PROTEIN-CALORIE MALNUTRITION Status: Chronic (23) Thrombocytopenia Code(s): D69.6 - THROMBOCYTOPENIA, UNSPECIFIED Status: Chronic (24) Tobacco abuse Code(s): Z72.0 - TOBACCO USE Status: Chronic (25) Aortic stenosis Code(s): I35.0 - NONRHEUMATIC AORTIC (VALVE) STENOSIS Status: Chronic (26) Bacteremia due to methicillin resistant Staphylococcus aureus Code(s): R78.81 - BACTEREMIA Status: Acute (27) Gangrene of toe of right foot Code(s): I96 - GANGRENE, NOT ELSEWHERE CLASSIFIED Status: Acute (28) Cavitary lesion of lung Code(s): J98.4 - OTHER DISORDERS OF LUNG Status: Acute (29) UTI (urinary tract infection) Status: Acute - Plan cont current plan of care, bravo catheter, continue antibiotics, PT/OT, social human services assistants * endocarditis suspected * continue vancomycin * will need MRI spine when we able to * will need [place] if cardio OK * he will need placement and filler leaf cutter long IV antibiotics * his prognosis is still guarded * medication reviewed as below * symptomatic treatment. * amiodraron drip as per cardio * digoxin given today * replace potassium today Review of Systems - Review of Systems Constitutional: weakness, malaise. negative: fever, chills, sweats, other ENT: negative: Ear Pain, Ear Discharge, Nose Pain, Nose Discharge, Nose Congestion, Mouth Pain, Mouth Swelling, Throat Pain, Throat Swelling, Other Respiratory: negative: Cough, Dry, Shortness of Breath, Hemoptysis, SOB with Excertion, Pleuritic Pain, Sputum, Wheezing Cardiovascular: negative: chest pain, palpitations, orthopnea, paroxysmal nocturnal dyspnea, edema, light headedness, other Gastrointestinal: negative: Nausea, Vomiting, Abdominal Pain, Diarrhea, Constipation, Melena, Hematochezia, Other Genitourinary: negative: Dysuria, Frequency, Incontinence, Hematuria, Retention , Other Musculoskeletal: Neck Pain, Back Pain. negative: Shoulder Pain, Arm Pain, Hand Pain, Leg Pain, Foot Pain, Other Skin: negative: Rash, Lesions, Arnoldo, Bruising, Other - Medications/Allergies Allergies/Adverse Reactions: Allergies Allergy/AdvReac Type Severity Reaction Status Date / Time No Known Allergies Allergy Unverified 07/23/17 10:34 Medications: Current Medications Acetaminophen (Tylenol) 650 mg PO Q4H PRN PRN Reason: Headache/Fever or Pain Hydrocodone Bitart/Acetaminophen ([place] 10/325) 1 tab PO Q4H PRN PRN Reason: Moderate Pain (4-6) Last Admin: 10/17/17 05:09 Dose: 1 tab Al Hydroxide/Mg Hydroxide (Maalox) 30 ml PO Q6H PRN PRN Reason: Heartburn or Indigestion Albuterol/Ipratropium (Duoneb) 3 ml NEB [id number] [facility] Last Admin: 10/17/17 06:38 Dose: 3 ml Artificial Tears (Tears Naturale) 0 drop EA EYE PRN PRN PRN Reason: Dry Eyes Budesonide (Pulmicort Neb Solution) 0.5 mg INH BID-RT [facility] Last Admin: 10/17/17 06:38 Dose: 0.5 mg Carvedilol (Coreg) 6.25 mg PO BID-WM [facility] Last Admin: 10/17/17 08:23 Dose: 6.25 mg Dextrose/Water (Dextrose 50%) 25 gm SLOW IVP PRN PRN PRN Reason: Hypoglycemia Digoxin (Lanoxin) 0.125 mg PO QAM [facility] Last Admin: 10/17/17 08:22 Dose: 0.125 mg Duloxetine HCl (Cymbalta) 30 mg PO DAILY [facility] Last Admin: 10/17/17 08:23 Dose: 30 mg Gabapentin (Neurontin) 300 mg PO TID [facility] Last Admin: 10/17/17 08:23 Dose: 300 mg Glucagon (Glucagon) 1 mg IM PRN PRN PRN Reason: Hypoglycemia Guaifenesin (Robitussin Sf) 200 mg PO Q4H PRN PRN Reason: Cough Hydralazine HCl (Apresoline) 10 mg SLOW IVP Q4H PRN PRN Reason: Systolic BP > 180 Amiodarone HCl 450 mg/Miscellaneous Medication 1 each/ Dextrose/Water 259 mls @ 0 mls/hr IVPB INF [facility]; As Directed PRN Reason: Protocol Last Admin: 10/16/17 20:33 Dose: 259 mls Dextrose/Water (D5w) 1,000 mls @ 0 mls/hr IV .Q0M PRN; As Directed PRN Reason: Hypoglycemia Sodium Chloride (Normal Saline 0.9%) 1,000 mls @ 100 mls/hr IV .Q10H [facility] Last Admin: 10/16/17 23:01 Dose: 1,000 mls Insulin Glargine 10 units/ (Miscellaneous Medication) 0.1 mls @ 0 mls/hr SC BID [facility] Last Admin: 10/16/17 20:31 Dose: 0.1 mls Vancomycin HCl 1.5 gm/ Sodium (Chloride) 300 mls @ 150 mls/hr IVPB 0200 [facility] Last Admin: 10/17/17 01:25 Dose: 300 mls Insulin Human Lispro (Humalog) 0 units SC .MODERATE SLIDING SC PRN PRN Reason: Moderate Correctional Scale Last Admin: 10/16/17 11:49 Dose: 4 unit Insulin Human Lispro (Humalog) 0 units SC .BEDTIME SLIDING SC PRN PRN Reason: Bedtime Correctional Scale Labetalol HCl (Normodyne) 20 mg SLOW IVP Q4H PRN PRN Reason: Systolic BP > 180 Levothyroxine Sodium (Synthroid) 175 mcg PO 0600 [facility] Last Admin: 10/17/17 05:08 Dose: 175 mcg Loperamide HCl (Imodium) 2 mg PO PRN PRN PRN Reason: Diarrhea/Loose Stools Loratadine (Claritin) 10 mg PO DAILYPRN PRN PRN Reason: Sinus Symptoms Magnesium Hydroxide (Milk Of Magnesium) 30 ml PO DAILYPRN PRN PRN Reason: Constipation Mineral Oil/White Petrolatum (Eucerin Cream) 0 gm TOP BIDPRN PRN PRN Reason: Dry Skin Miscellaneous Medication (Pharmacy To Dose) 1 each IVPB PRN PRN PRN Reason: Pharmacy to dose Morphine Sulfate (Morphine) 2 mg SLOW IVP Q4H PRN PRN Reason: Severe Pain (7-10) Last Admin: 10/17/17 08:17 Dose: 2 mg Nitroglycerin (Nitrostat) 0.4 mg SL Q5MIN PRN PRN Reason: Chest Pain Ondansetron HCl (Zofran Odt) 4 mg PO Q6H PRN PRN Reason: Nausea/Vomiting Ondansetron HCl (Zofran) 4 mg IVP Q6H PRN PRN Reason: Nausea/Vomiting Phenol (Chloraseptic [place] 180 Ml Bot) 0 ml PO PRN PRN PRN Reason: Sore Throat Saccharomyces Boulardii (Florastor) 250 mg PO DAILY [facility] Last Admin: 10/17/17 08:22 Dose: 250 mg Senna (Senokot) 2 tab PO HSPRN PRN PRN Reason: Constipation Sodium Chloride ([place] Nasal [place] 0.65%) 0 ml EA NARE QIDPRN PRN PRN Reason: Nasal Congestion Sodium Chloride (Flush - Normal Saline) 10 ml IVF Q12HR [facility] Last Admin: 10/16/17 20:33 Dose: Not Given Sodium Chloride (Flush - Normal Saline) 10 ml IVF PRN PRN PRN Reason: Saline Flush
[2017-10-17] MEDS ORDERED: Carvedilol 6.25 MG TAB PO SCH ×3 (10:26→17:00)
[2017-10-17] MEDS ORDERED: Potassium Chloride 20 MEQ TAB PO SCH (10:30)
[2017-10-17] MEDS: Sodium Chloride 0.9% 1,000 ML IV SCH ×3 (12:15→21:52)
[2017-10-17] MEDS: Amiodarone HCl 450 MG in Dextrose 5% in Water 250 ML IVPB SCH (13:43)
--- NOTE | 2017-10-17 13:56 | PDOC.CTH ---
<Rekha Benitez - Last Filed: 10/17/17 13:55> Cardiology Progress Note - Subjective The pt seen and examined. No overnight events. No cardiac complaints. He complains of chronic Back and BLE pain. - Objective Vital Signs Temp Pulse Pulse Pulse Resp BP BP 10/17/17 12:12 98 10/17/17 11:41 114 H 18 10/17/17 11:10 99 10/17/17 10:10 96 10/17/17 09:34 102 H 104 H 159/75 H 149/87 H 10/17/17 09:10 97 10/17/17 08:50 102 H 10/17/17 08:22 104 H 10/17/17 08:10 105 H 10/17/17 08:00 98.3 F 104 H 16 10/17/17 07:10 98.3 F 107 H 16 10/17/17 06:38 111 H 16 10/17/17 03:55 107 H 10/17/17 03:24 99.5 F 99 15 BP Pulse Ox Pulse Ox Pulse Ox 10/17/17 12:12 146/79 H 93 L 10/17/17 11:41 94 L 10/17/17 11:10 160/79 H 10/17/17 10:10 151/77 H 92 L 10/17/17 09:34 99 93 L 10/17/17 09:10 159/75 H 10/17/17 08:50 149/87 H 10/17/17 08:22 10/17/17 08:10 176/81 H 10/17/17 08:00 10/17/17 07:10 169/85 H 99 10/17/17 06:38 93 L 10/17/17 03:55 10/17/17 03:24 139/72 93 L Admit Weight 183 lb Weight 203 lb 9.6 oz 10/16/17 10/17/17 10/18/17 06:59 06:59 06:59 Intake Total 3848 2940.4 Output Total 1999 2820 Balance 1848 120.4 - Physical Examination General/Neuro: alert & oriented x3 Neck: no JVD present Lungs: other: (diminished at bases) Heart: RRR Abdomen: soft Extremities: other: (No edema) - Labs Result Diagrams: 10/17/17 04:28 10/17/17 04:28 Troponin/CKMB CK-MB (CK-2) 2.9 ng/mL (0-6.6) 10/15/17 00:17 Troponin I 0.176 ng/mL (< 0.028) H 10/15/17 00:17 - Assessment/Plan 1. AFib with RVR - Rate well controlled with Amiodarone 0.5mg/min. On Lovenox BID. Cont. to monitor on tele 2. Chronic combined HF - 3. HTN - 4. Chronic Anemia - 5. DM type 2 - 6. PVD with hx of all Lt digits and 2nd toe amputation - managed by PCP 7. Hx of liver dysfunction 2/ to ETOH abuse - slightly elevated today. cont. to monitor 8. CODY - stable 9. 1.8 cm Lung mass [facility] 10. Ex- smoker, quit in 04/2017 MAR reviewed * Echo on 10/16/17 showed EF 50-55%, inferior wall jypokinesis, LVH, mod dilated LA, mild MR, mild TR, and severe with 0.87sq cm. * Possible [place]. Review of Systems - Review of Systems Constitutional: reports: no symptoms reported EENTM: reports: no symptoms reported Respiratory: reports: no symptoms reported Cardiac (ROS): reports: no symptoms reported ABD/GI: reports: no symptoms reported : reports: no symptoms reported <Sherie Amin - Last Filed: 10/17/17 18:50> Cardiology Progress Note - Objective Vital Signs Temp Pulse Pulse Pulse Resp BP BP 10/17/17 18:04 10/17/17 17:10 84 10/17/17 16:10 97.6 F 95 16 10/17/17 15:10 92 10/17/17 14:10 92 10/17/17 13:56 95 10/17/17 13:10 99 10/17/17 12:12 98 10/17/17 11:41 114 H 18 10/17/17 11:10 99 10/17/17 10:10 96 10/17/17 09:34 102 H 104 H 159/75 H 149/87 H 10/17/17 09:10 97 10/17/17 08:50 102 H 10/17/17 08:22 104 H 10/17/17 08:10 105 H 10/17/17 08:00 98.3 F 104 H 16 10/17/17 07:10 98.3 F 107 H 16 BP Pulse Ox Pulse Ox Pulse Ox 10/17/17 18:04 94 L 10/17/17 17:10 161/76 H 95 10/17/17 16:10 147/80 H 92 L 10/17/17 15:10 162/74 H 10/17/17 14:10 180/84 H 10/17/17 13:56 175/84 H 10/17/17 13:10 191/88 H 10/17/17 12:12 146/79 H 93 L 10/17/17 11:41 94 L 10/17/17 11:10 160/79 H 10/17/17 10:10 151/77 H 92 L 10/17/17 09:34 99 93 L 10/17/17 09:10 159/75 H 10/17/17 08:50 149/87 H 10/17/17 08:22 10/17/17 08:10 176/81 H 10/17/17 08:00 10/17/17 07:10 169/85 H 99 Admit Weight 177 lb 0.499 oz Weight 203 lb 9.6 oz 10/16/17 10/17/17 10/18/17 06:59 06:59 06:59 Intake Total 3848 2940.4 Output Total 2000 2820 Balance 1848 120.4 - Labs Result Diagrams: 10/17/17 04:28 10/17/17 04:28 Troponin/CKMB CK-MB (CK-2) 2.9 ng/mL (0-6.6) 10/15/17 00:17 Troponin I 0.176 ng/mL (< 0.028) H 10/15/17 00:17 - Assessment/Plan Pt. seen and eval. He is still lethargic. Says that he hurts all over. The echo indicates severe , his last cardiac cath indicated mild . He will need antibiotic therapy for several weeks. If no other source of the infection can be found then A [place] could be performed to evaluate for possible endocarditis. I agree with the A/P by the EARTH BORING MACHINE OPERATOR.
[2017-10-17] MEDS: HYDROmorphone 10 mg/100 ml CADD IV PRN (17:49)
--- NOTE | 2017-10-17 20:06 | PRG ---
DATE OF SERVICE: 10/17/2017 SUBJECTIVE: Mr. Cruz still complaining of severe back discomfort. As mentioned yesterday, he is unable to complete an MRI. OBJECTIVE: VITAL SIGNS: Heart rate 95, respiratory rate is 18, oximetry is 93 on room air, blood pressure 175/8 4. The highest today is 191/88. LUNGS: His lungs are clear. HEART: Regular rhythm. ABDOMEN: Soft. LABORATORY DATA: White count 4.8, hemoglobin 9.6, platelets 78,000. Sodium 133, potassium 3.2, chlo ride 106, bicarb 22, BUN 20, creatinine 0.87, albumin is 2.3. IMPRESSION: ? endocarditis with Staph bacteremia with MRSA and wedge shaped defects on CT suggestive of an embolic splenic infarcts. Echocardiogram shows diastolic dysfunction. Echo is of poor technical quality. The echocardiogram w as suggestive of severe aortic stenosis and he certainly has a murmur consistent with aortic stenosis . We will continue with antimicrobial therapy. I recommend consulting pain management and anesthesia to see if we can get better control of his pain with perhaps a pump. Geotechnical Engineer will have to determine whether or not he needs a transesophageal echo for further evalua tion of his valves. I believe that we are empirically treating him for endocarditis at this time.
[2017-10-18] MEDS: Vancomycin HCl 1.5 GM in Sodium Chloride 0.9% 250 ML 300 ML IVPB SCH (01:29)
[2017-10-18] MEDS: Amiodarone HCl 450 MG in Dextrose 5% in Water 250 ML IVPB SCH ×2 (05:20→21:27)
[2017-10-18] MEDS: Levothyroxine 175 MCG TAB PO SCH (05:20)
[2017-10-18] MEDS: Budesonide 0.5 MG/2 ML NEB INH SCH ×2 (06:58→18:37)
[2017-10-18 07:40] LABS: Hemoglobin 10.7 g/dL (14.0-18.0); Mean Corpuscular Hemoglobin 30.6 pg (27.0-31.0); Mean Corpuscular Volume 90.1 fL (78.0-98.0); Mean Platelet Volume 9.1 fL (7.4-10.4); Platelet Count 89 thou/uL (130-400); RBC Distribution Width 17.5 % (11.5-14.5); White Blood Cell (WBC) Count 6.7 thou/uL (4.8-10.8)
[2017-10-18 07:54] LABS: Anion Gap 11 mmol/L (10-20); BUN (Urea Nitrogen) 16 mg/dL (8.4-25.7); Calc. Creatinine Clearance 99 mL/min (70-130); Carbon Dioxide 23 mmol/L (23-31); Chloride 101 mmol/L (98-107); Estimated GFR-MDRD 85; Glucose 153 mg/dL (83-110); Sodium 132 mmol/L (136-145)
[2017-10-18 08:22] LABS: Band 16 % (5-11); Eosinophils 2 % (0-10); Lymphocytes 25 % (21-51); MDiff Complete? YES; Monocytes 4 % (0-10); Myelocyte 1 % (0-0); Neutrophil 51 % (42-75); PLT Morphology Comment Appears Decreased; Polychromasia SLIGHT = 2-3 cells (100X) (0-2/hpf); Reactive Lymphocytes 1 % (0-10)
[2017-10-18 08:23] LABS: Potassium 2.9 mmol/L (3.5-5.1)
[2017-10-18] MEDS: DULoxetine 30 MG CAP PO SCH (08:39)
[2017-10-18] MEDS: Potassium Chloride 20 MEQ TAB PO SCH (08:39)
[2017-10-18] MEDS: Carvedilol 25 MG TAB PO SCH ×2 (08:39→16:35)
[2017-10-18] MEDS: Saccharomyces boulardii 250 MG CAP PO SCH (08:40)
[2017-10-18] MEDS: Digoxin 0.125 MG TAB PO SCH (08:40)
[2017-10-18] MEDS: Insulin Glargine 10 UNITS in Pre-Filled Syringe 1 EACH SC SCH ×2 (08:40→20:48)
[2017-10-18] MEDS: Gabapentin 300 MG CAP PO SCH ×3 (08:40→20:48)
[2017-10-18] MEDS ORDERED: Potassium Chloride 20 MEQ TAB PO SCH (09:30)
--- NOTE | 2017-10-18 10:38 | PRG ---
DATE OF SERVICE: 10/18/2017 John Cruz says his pain is better. PHYSICAL EXAMINATION: VITAL SIGNS: His temperature is 100. Oximetry is 98 on room air, respiratory rate is 18. Blood pre ssure 174/83. LUNGS: Clear. HEART: Regular rhythm. Loud grade 3/6 systolic murmur. ABDOMEN: Soft and nontender. IMPRESSION: Probable endocarditis. LABORATORY DATA: White count 6.7, hemoglobin 10.7, platelets are 89 today. Electrolytes are normal with the exception of potassium of 2.9. IMPRESSION: 1. Underlying moderate obstructive lung disease. As I recall his FEV1 was about 1.5 liters and we d id PFTs on him. 2. Aortic stenosis. 3. Coronary artery disease. He was evaluated by Dr. Rose when he was in the hospital in July, it was felt that he had too many other issues that were poorly defined at the [facility] to proceed forward with a major operation. 4. Pulmonary nodules that were radiographically stable, being followed at the [facility]. PLAN: We will continue to follow. His pain is better in his back with his anesthesia guided pain pu mp. I have explained to him that being completely pain free is not a realistic expectation at this p oint.
--- NOTE | 2017-10-18 11:05 | PDOC.PN ---
- Subjective Encounter Start Date: 10/18/17 Encounter Start Time: 09:15 Patient seen and examined. No new complaints. No overnight events he is on MEMBERSHIP SOLICITOR and feels that his pain is better controlled - Objective Resuscitation Status: Resuscitation Status FULL:Full Resuscitation MAR Reviewed: Yes Vital Signs & Weight: Vital Signs (12 hours) Temp Pulse Resp BP BP Pulse Ox 10/18/17 10:26 93 16 151/71 H 97 10/18/17 08:40 99 10/18/17 08:00 100 F H 91 18 98 10/18/17 07:25 96 10/18/17 07:15 100.0 F H 91 18 174/83 H 98 10/18/17 06:57 87 20 96 10/18/17 06:33 100 196/96 H 10/18/17 03:06 100 F H 94 18 173/88 H 93 L 10/18/17 01:02 86 14 95 Weight Admit Weight 177 lb 0.499 oz Weight 203 lb 9.6 oz Most Recent Monitor Data Heart Rate from ECG 107 NIBP 110/67 NIBP BP-Mean 83 Respiration from ECG 17 SpO2 97 I&O: 10/17/17 10/18/17 10/19/17 06:59 06:59 06:59 Intake Total 2940.4 2500 Output Total 2820 2700 750 Balance 120.4 -200 -750 Result Diagrams: 10/18/17 07:26 10/18/17 07:26 Additional Labs: Accuchecks 10/17/17 10/17/17 10/17/17 20:37 16:30 11:23 POC Glucose 190 H 190 H 220 H EKG Reviewed by me: Yes (afib) Phys Exam - Physical Examination Constitutional: NAD HEENT: PERRLA, moist MMs, sclera anicteric Neck: no JVD, supple Respiratory: no wheezing, no rales, no rhonchi Cardiovascular: irregular SM+ Gastrointestinal: soft, non-tender, no distention, positive bowel sounds Musculoskeletal: no edema, pulses present toe amputated on left and toe gangrene on right Neurological: non-focal Lymphatic: no nodes Psychiatric: normal affect Skin: no rash, normal turgor Dx/Plan (1) Acute kidney failure Status: Resolved (2) Atrial fibrillation with rapid ventricular response Code(s): I48.91 - UNSPECIFIED ATRIAL FIBRILLATION Status: Acute Comment: on amiodarone drip (3) Demand ischemia of myocardium Code(s): I24.8 - OTHER FORMS OF ACUTE ISCHEMIC HEART DISEASE Status: Acute (4) Hematuria, gross Status: Acute (5) Hyponatremia Code(s): E87.1 - HYPO-OSMOLALITY AND HYPONATREMIA Status: Acute (6) Lactic acidosis Code(s): E87.2 - ACIDOSIS Status: Resolved (7) Sepsis with acute organ dysfunction Code(s): A41.9 - SEPSIS, UNSPECIFIED ORGANISM; R65.20 - SEVERE SEPSIS WITHOUT SEPTIC SHOCK Status: Acute (8) Splenic infarct Code(s): D73.5 - INFARCTION OF SPLEEN Status: Acute (9) 3-vessel CAD Status: Chronic (10) Alcoholic cirrhosis of liver Code(s): K70.30 - ALCOHOLIC CIRRHOSIS OF LIVER WITHOUT ASCITES Status: Chronic (11) Anemia, macrocytic Code(s): D53.9 - NUTRITIONAL ANEMIA, UNSPECIFIED Status: Chronic (12) Anxiety and depression Code(s): F41.9 - ANXIETY DISORDER, UNSPECIFIED; F32.9 - MAJOR DEPRESSIVE DISORDER, SINGLE EPISODE, UNSPECIFIED Status: Chronic (13) COPD (chronic obstructive pulmonary disease) Status: Chronic (14) Chronic combined systolic and diastolic CHF (congestive heart failure) Code(s): I50.42 - CHRONIC COMBINED SYSTOLIC AND DIASTOLIC HRT FAIL Status: Chronic (15) DM type 2 (diabetes mellitus, type 2) Status: Chronic Qualifiers: Diabetes mellitus fpc insulin use: with fpc use Diabetes mellitus complication status: without complication Qualified Code(s): E11.9 - Type 2 diabetes mellitus without complications; Z79.4 - salvage determiner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; Z79.4 - salvage determiner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; Z79.4 - FCI ( 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; Z79.4 - salvage determiner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 (16) Dyslipidemia Code(s): E78.5 - HYPERLIPIDEMIA, UNSPECIFIED Status: Chronic (17) GERD (gastroesophageal reflux disease) Code(s): K21.9 - GASTRO-ESOPHAGEAL REFLUX DISEASE WITHOUT ESOPHAGITIS Status: Chronic (18) HTN (hypertension) Code(s): I10 - ESSENTIAL (PRIMARY) HYPERTENSION Status: Chronic (19) Hypoalbuminemia due to protein-calorie malnutrition Code(s): E46 - UNSPECIFIED PROTEIN-CALORIE MALNUTRITION Status: Chronic (20) Hypothyroidism Code(s): E03.9 - HYPOTHYROIDISM, UNSPECIFIED Status: Chronic (21) PVD (peripheral vascular disease) Code(s): I73.9 - PERIPHERAL VASCULAR DISEASE, UNSPECIFIED Status: Chronic (22) Protein-calorie malnutrition, moderate Code(s): E44.0 - MODERATE PROTEIN-CALORIE MALNUTRITION Status: Chronic (23) Thrombocytopenia Code(s): D69.6 - THROMBOCYTOPENIA, UNSPECIFIED Status: Chronic (24) Tobacco abuse Code(s): Z72.0 - TOBACCO USE Status: Chronic (25) Aortic stenosis Code(s): I35.0 - NONRHEUMATIC AORTIC (VALVE) STENOSIS Status: Chronic (26) Bacteremia due to methicillin resistant Staphylococcus aureus Code(s): R78.81 - BACTEREMIA Status: Acute (27) Gangrene of toe of right foot Code(s): I96 - GANGRENE, NOT ELSEWHERE CLASSIFIED Status: Acute (28) Cavitary lesion of lung Code(s): J98.4 - OTHER DISORDERS OF LUNG Status: Acute (29) UTI (urinary tract infection) Status: Acute (30) Hypokalemia Code(s): E87.6 - HYPOKALEMIA Status: Acute (31) Osteomyelitis of toe of right foot Code(s): M86.9 - OSTEOMYELITIS, UNSPECIFIED Status: Acute - Plan cont current plan of care, 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 * increase coreg 25 mg po bid * will need [place], MRI lumbar and cervical spine * will need placement and outpt IV antibiotics therapy * continue amiodaron drip as per cardio Review of Systems - Review of Systems Constitutional: negative: fever, chills, sweats, weakness, malaise, other Eyes: negative: Pain, Vision Change, Conjunctivae Inflammation, Eyelid Inflammation, Redness, Other ENT: negative: Ear Pain, Ear Discharge, Nose Pain, Nose Discharge, Nose Congestion, Mouth Pain, Mouth Swelling, Throat Pain, Throat Swelling, Other Respiratory: negative: Cough, Dry, Shortness of Breath, Hemoptysis, SOB with Excertion, Pleuritic Pain, Sputum, Wheezing Cardiovascular: negative: chest pain, palpitations, orthopnea, paroxysmal nocturnal dyspnea, edema, light headedness, other Gastrointestinal: negative: Nausea, Vomiting, Abdominal Pain, Diarrhea, Constipation, Melena, Hematochezia, Other Genitourinary: negative: Dysuria, Frequency, Incontinence, Hematuria, Retention , Other Musculoskeletal: Neck Pain, Back Pain. negative: Shoulder Pain, Arm Pain, Hand Pain, Leg Pain, Foot Pain, Other Skin: negative: Rash, Lesions, Arnoldo, Bruising, Other - Medications/Allergies Allergies/Adverse Reactions: Allergies Allergy/AdvReac Type Severity Reaction Status Date / Time No Known Allergies Allergy Unverified 07/23/17 10:34 Medications: Current Medications Acetaminophen (Tylenol) 650 mg PO Q4H PRN PRN Reason: Headache/Fever or Pain Al Hydroxide/Mg Hydroxide (Maalox) 30 ml PO Q6H PRN PRN Reason: Heartburn or Indigestion Albuterol/Ipratropium (Duoneb) 3 ml NEB [id number] [facility] Last Admin: 10/18/17 06:57 Dose: 3 ml Artificial Tears (Tears Naturale) 0 drop EA EYE PRN PRN PRN Reason: Dry Eyes Budesonide (Pulmicort Neb Solution) 0.5 mg INH BID-RT [facility] Last Admin: 10/18/17 06:58 Dose: 0.5 mg Carvedilol (Coreg) 25 mg PO BID-WM [facility] Last Admin: 10/18/17 08:39 Dose: 25 mg Dextrose/Water (Dextrose 50%) 25 gm SLOW IVP PRN PRN PRN Reason: Hypoglycemia Digoxin (Lanoxin) 0.125 mg PO QAM [facility] Last Admin: 10/18/17 08:40 Dose: 0.125 mg Duloxetine HCl (Cymbalta) 30 mg PO DAILY [facility] Last Admin: 10/18/17 08:39 Dose: 30 mg Gabapentin (Neurontin) 300 mg PO TID [facility] Last Admin: 10/18/17 08:40 Dose: 300 mg Glucagon (Glucagon) 1 mg IM PRN PRN PRN Reason: Hypoglycemia Guaifenesin (Robitussin Sf) 200 mg PO Q4H PRN PRN Reason: Cough Hydralazine HCl (Apresoline) 10 mg SLOW IVP Q4H PRN PRN Reason: Systolic BP > 180 Hydromorphone HCl (Dilaudid Cadd) 0 mg IV INF PRN PRN Reason: Pain Last Admin: 10/17/17 17:49 Dose: 10 mg Amiodarone HCl 450 mg/Miscellaneous Medication 1 each/ Dextrose/Water 259 mls @ 0 mls/hr IVPB INF [facility]; As Directed PRN Reason: Protocol Last Admin: 10/18/17 05:20 Dose: 259 mls Dextrose/Water (D5w) 1,000 mls @ 0 mls/hr IV .Q0M PRN; As Directed PRN Reason: Hypoglycemia Insulin Glargine 10 units/ (Miscellaneous Medication) 0.1 mls @ 0 mls/hr SC BID [facility] Last Admin: 10/18/17 08:40 Dose: Not Given Vancomycin HCl 1.5 gm/ Sodium (Chloride) 300 mls @ 150 mls/hr IVPB 0200 [facility] Last Admin: 10/18/17 01:29 Dose: 300 mls Insulin Human Lispro (Humalog) 0 units SC .MODERATE SLIDING SC PRN PRN Reason: Moderate Correctional Scale Last Admin: 10/16/17 11:49 Dose: 4 unit Insulin Human Lispro (Humalog) 0 units SC .BEDTIME SLIDING SC PRN PRN Reason: Bedtime Correctional Scale Labetalol HCl (Normodyne) 20 mg SLOW IVP Q4H PRN PRN Reason: Systolic BP > 180 Last Admin: 10/18/17 06:33 Dose: 20 mg Levothyroxine Sodium (Synthroid) 175 mcg PO 0600 [facility] Last Admin: 10/18/17 05:20 Dose: 175 mcg Loperamide HCl (Imodium) 2 mg PO PRN PRN PRN Reason: Diarrhea/Loose Stools Loratadine (Claritin) 10 mg PO DAILYPRN PRN PRN Reason: Sinus Symptoms Magnesium Hydroxide (Milk Of Magnesium) 30 ml PO DAILYPRN PRN PRN Reason: Constipation Mineral Oil/White Petrolatum (Eucerin Cream) 0 gm TOP BIDPRN PRN PRN Reason: Dry Skin Miscellaneous Medication (Pharmacy To Dose) 1 each IVPB PRN PRN PRN Reason: Pharmacy to dose Nitroglycerin (Nitrostat) 0.4 mg SL Q5MIN PRN PRN Reason: Chest Pain Ondansetron HCl (Zofran Odt) 4 mg PO Q6H PRN PRN Reason: Nausea/Vomiting Ondansetron HCl (Zofran) 4 mg IVP Q6H PRN PRN Reason: Nausea/Vomiting Phenol (Chloraseptic [place] 180 Ml Bot) 0 ml PO PRN PRN PRN Reason: Sore Throat Potassium Chloride (K-Dur) 20 meq PO QAM-WM [facility] Last Admin: 10/18/17 08:39 Dose: 20 meq Potassium Chloride (K-Dur) 40 meq PO NOW [facility] Stop: 10/18/17 11:30 Last Admin: 10/18/17 10:25 Dose: 40 meq Saccharomyces Boulardii (Florastor) 250 mg PO DAILY [facility] Last Admin: 10/18/17 08:40 Dose: 250 mg Senna (Senokot) 2 tab PO HSPRN PRN PRN Reason: Constipation Sodium Chloride (Casa Nasal [place] 0.65%) 0 ml EA NARE QIDPRN PRN PRN Reason: Nasal Congestion Sodium Chloride (Flush - Normal Saline) 10 ml IVF Q12HR [facility] Last Admin: 10/18/17 08:41 Dose: 10 ml Sodium Chloride (Flush - Normal Saline) 10 ml IVF PRN PRN PRN Reason: Saline Flush
[2017-10-18 11:10] LABS: Magnesium 1.3 mg/dL (1.6-2.6); Phosphorus 2.1 mg/dL (2.3-4.7)
--- NOTE | 2017-10-18 11:39 | PDOC.CTH ---
<Rekha Benitez - Last Filed: 10/18/17 14:42> Cardiology Progress Note - Subjective The pt seen and examined. No overnight events. No cardiac complaints. 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 - Objective Vital Signs Temp Pulse Resp BP BP Pulse Ox 10/18/17 10:26 93 16 151/71 H 97 10/18/17 08:40 99 10/18/17 08:00 100 F H 91 18 98 10/18/17 07:25 96 10/18/17 07:15 100.0 F H 91 18 174/83 H 98 10/18/17 06:57 87 20 96 10/18/17 06:33 100 196/96 H 10/18/17 03:06 100 F H 94 18 173/88 H 93 L 10/18/17 01:02 86 14 95 Admit Weight 177 lb 0.499 oz Weight 203 lb 9.6 oz 10/17/17 10/18/17 10/19/17 06:59 06:59 06:59 Intake Total 2940.4 2500 Output Total 2820 2700 750 Balance 120.4 -200 -750 - Physical Examination General/Neuro: alert & oriented x3 Neck: no JVD present Lungs: other: (diminishes at bases) Heart: RRR Extremities: other: (No edema) - Telemetry Telemetry Rhythm: SR since 0700 on 10/17/17 - Labs Result Diagrams: 10/18/17 07:26 10/18/17 07:26 Troponin/CKMB CK-MB (CK-2) 2.9 ng/mL (0-6.6) 10/15/17 00:17 Troponin I 0.176 ng/mL (< 0.028) H 10/15/17 00:17 - Assessment/Plan 1. AFib with RVR - Converted back to SR at 0700 on 10/17/17; On Lovenox BID. Will Change Amiodarone 200mg PO BID and re-check Liver enzyme on Saturday. Will stop Amiodarone for elevated Liver Enzyme. Cont. to monitor on tele 2. Chronic combined HF - stable; cont. to monitor 3. HTN - Coreg was increased to 25mg bid. 4. Chronic Anemia - stable 5. DM type 2 - managed by PCP 6. PVD with hx of all Lt digits and 2nd toe amputation - managed by PCP 7. Hx of liver dysfunction 2/2 to ETOH abuse - slightly elevated today. cont. to monitor 8. CODY - stable 9. 1.8 cm Lung [facility] 10. Ex- smoker, quit in 04/2017 11. Severe - evaluated by Dr Gilbert in 07/2017 and the pt is not good candidate for ASR for now. MAR reviewed * Echo on 10/16/17 showed EF 50-55%, inferior wall jypokinesis, LVH, mod dilated LA, mild MR, mild TR, and severe with 0.87sq cm. * Possible [place] for possible endocarditis if no other source of the infection can be found Review of Systems - Review of Systems Constitutional: reports: no symptoms reported EENTM: reports: no symptoms reported Respiratory: reports: no symptoms reported Cardiac (ROS): reports: no symptoms reported ABD/GI: reports: no symptoms reported : reports: no symptoms reported <Sherie Amin - Last Filed: 10/18/17 22:28> Cardiology Progress Note - Objective Vital Signs Temp Pulse Pulse Pulse Resp BP BP 10/18/17 19:00 100.7 F H 84 18 10/18/17 15:35 98.7 F 72 16 10/18/17 13:13 85 20 10/18/17 11:53 100.0 F H 89 16 10/18/17 11:22 80 102 H 148/74 H 147/71 H 10/18/17 10:26 93 16 BP BP Pulse Ox Pulse Ox Pulse Ox 10/18/17 19:00 155/74 H 95 10/18/17 15:35 155/72 H 95 10/18/17 13:13 95 10/18/17 11:53 148/74 H 95 10/18/17 11:22 96 97 10/18/17 10:26 151/71 H 97 Admit Weight 177 lb 0.499 oz Weight 203 lb 9.6 oz 10/17/17 10/18/17 10/19/17 06:59 06:59 06:59 Intake Total 2940.4 2500 800 Output Total 2820 2700 2600 Balance 120.4 -200 -1800 - Labs Result Diagrams: 10/18/17 07:26 10/18/17 07:26 Troponin/CKMB CK-MB (CK-2) 2.9 ng/mL (0-6.6) 06/26/18 00:17 Troponin I 0.176 ng/mL (< 0.028) H 10/15/17 00:17 - Assessment/Plan Pt. seen and eval. by me. I have discussed the pt. with the ENDOSCOPY SPECIALTY TECHNICIAN and I agree with the A/P. He also has hypokalemia. This is being managed by the primary service. RRR, chest clear.
[2017-10-18] MEDS: Amiodarone 200 MG TAB PO SCH (20:48)
[2017-10-18] MEDS: Acetaminophen 325 MG TAB PO PRN (20:52)
[2017-10-18] MEDS ORDERED: Amiodarone 200 MG TAB PO SCH (21:00)
[2017-10-19 02:04] LABS: Vancomycin, Trough 11.1 ug/mL
[2017-10-19] MEDS: Vancomycin HCl 1.5 GM in Sodium Chloride 0.9% 250 ML 300 ML IVPB SCH (03:57)
[2017-10-19] MEDS: Levothyroxine 175 MCG TAB PO SCH (05:40)
[2017-10-19] MEDS: Budesonide 0.5 MG/2 ML NEB INH SCH ×2 (08:05→18:51)
[2017-10-19] MEDS: Amiodarone 200 MG TAB PO SCH ×2 (08:47→21:20)
[2017-10-19] MEDS: Potassium Chloride 20 MEQ TAB PO SCH (08:47)
[2017-10-19] MEDS: DULoxetine 30 MG CAP PO SCH (08:47)
[2017-10-19] MEDS: Digoxin 0.125 MG TAB PO SCH (08:47)
[2017-10-19] MEDS: Carvedilol 25 MG TAB PO SCH ×2 (08:48→17:54)
[2017-10-19] MEDS: Gabapentin 300 MG CAP PO SCH ×3 (08:48→21:20)
[2017-10-19] MEDS: Insulin Glargine 10 UNITS in Pre-Filled Syringe 1 EACH SC SCH ×2 (12:34→21:21)
[2017-10-19] MEDS: Saccharomyces boulardii 250 MG CAP PO SCH (12:34)
--- NOTE | 2017-10-19 14:50 | PDOC.PN ---
- Subjective Encounter Start Date: 10/19/17 Encounter Start Time: 14:48 Subjective: feels Ok. no new complaints.no overnight events -: denies any CP/SOB/Abd pain.no N/V/D. 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 - Objective Resuscitation Status: Resuscitation Status DNR:Do Not Resuscitate MAR Reviewed: Yes Vital Signs & Weight: Vital Signs (12 hours) Temp Pulse Resp BP Pulse Ox 10/19/17 13:27 70 16 96 10/19/17 11:09 98.0 F 62 17 105/61 92 L 10/19/17 08:47 75 10/19/17 08:05 98 10/19/17 08:04 75 14 98 10/19/17 08:00 99.0 F 75 18 95 10/19/17 07:11 99.3 F 69 20 162/75 H 97 10/19/17 03:44 98.1 F 77 16 148/72 H 97 Weight Admit Weight 177 lb 0.499 oz Weight 195 lb 14.4 oz Most Recent Monitor Data Heart Rate from ECG 107 NIBP 110/67 NIBP BP-Mean 83 Respiration from ECG 17 SpO2 97 I&O: 10/18/17 10/19/17 10/20/17 06:59 06:59 06:59 Intake Total 2500 1858 Output Total 2700 4600 Balance -200 -2742 Result Diagrams: 10/18/17 07:26 10/18/17 07:26 Additional Labs: Accuchecks 10/19/17 10/19/17 10/18/17 10:36 05:45 19:41 POC Glucose 205 H 211 H 183 H 10/18/17 16:04 POC Glucose 186 H Laboratory Tests 10/15/17 10/17/17 10/18/17 04:00 04:28 07:26 Plt Count 79 L 78 L 89 L Labs reviewed Laboratory Tests 10/14/17 10/14/17 10/15/17 16:42 20:45 00:17 Troponin I 0.060 H 0.122 H 0.176 H Phys Exam - Physical Examination Constitutional: NAD HEENT: PERRLA, moist MMs, sclera anicteric, oral pharynx no lesions Neck: no nodes, no JVD, supple, full ROM Respiratory: no wheezing, no rales, no rhonchi, clear to auscultation bilateral Cardiovascular: RRR, no significant murmur, no rub Gastrointestinal: soft, non-tender, no distention, positive bowel sounds Musculoskeletal: no edema, pulses present Neurological: non-focal, normal sensation, moves all 4 limbs Psychiatric: normal affect, A&O x 3 Skin: no rash Dx/Plan (1) Atrial fibrillation with rapid ventricular response Code(s): I48.91 - UNSPECIFIED ATRIAL FIBRILLATION Status: Acute Comment: on amiodarone PO now with Digoxin and coreg.rate controlled (2) Sepsis with acute organ dysfunction Code(s): A41.9 - SEPSIS, UNSPECIFIED ORGANISM; R65.20 - SEVERE SEPSIS WITHOUT SEPTIC SHOCK Status: Acute (3) Bacteremia due to methicillin resistant Staphylococcus aureus Code(s): R78.81 - BACTEREMIA Status: Acute Comment: Suspect Infective endocarditis and /or Diskitis (4) Demand ischemia of myocardium Code(s): I24.8 - OTHER FORMS OF ACUTE ISCHEMIC HEART DISEASE Status: Acute (5) Osteomyelitis of toe of right foot Code(s): M86.9 - OSTEOMYELITIS, UNSPECIFIED Status: Acute (6) Gangrene of toe of right foot Code(s): I96 - GANGRENE, NOT ELSEWHERE CLASSIFIED Status: Acute (7) Hematuria, gross Status: Acute Comment: s/p Viramontes by urology w dorsal slit (8) Splenic infarct Code(s): D73.5 - INFARCTION OF SPLEEN Status: Acute Comment: ? septic embolization (9) Cavitary lesion of lung Code(s): J98.4 - OTHER DISORDERS OF LUNG Status: Chronic Comment: Op work up done at [place] (10) 3-vessel CAD Status: Chronic (11) Alcoholic cirrhosis of liver Code(s): K70.30 - ALCOHOLIC CIRRHOSIS OF LIVER WITHOUT ASCITES Status: Chronic (12) Aortic stenosis Code(s): I35.0 - NONRHEUMATIC AORTIC (VALVE) STENOSIS Status: Chronic Comment: severe (13) COPD (chronic obstructive pulmonary disease) Status: Chronic (14) Hypokalemia Code(s): E87.6 - HYPOKALEMIA Status: Acute (15) Chronic combined systolic and diastolic CHF (congestive heart failure) Code(s): I50.42 - CHRONIC COMBINED SYSTOLIC AND DIASTOLIC HRT FAIL Status: Chronic Comment: Compensated for now (16) DM type 2 (diabetes mellitus, type 2) Status: Chronic Qualifiers: Diabetes mellitus correction insulin use: with exterminator termite use Diabetes mellitus complication status: without complication Qualified Code(s): E11.9 - Type 2 diabetes mellitus without complications; Z79.4 - residential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; Z79.4 - residential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; Z79.4 - residential ( 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; Z79.4 - residential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 (17) Dyslipidemia Code(s): E78.5 - HYPERLIPIDEMIA, UNSPECIFIED Status: Chronic (18) GERD (gastroesophageal reflux disease) Code(s): K21.9 - GASTRO-ESOPHAGEAL REFLUX DISEASE WITHOUT ESOPHAGITIS Status: Chronic (19) HTN (hypertension) Code(s): I10 - ESSENTIAL (PRIMARY) HYPERTENSION Status: Chronic (20) Hypothyroidism Code(s): E03.9 - HYPOTHYROIDISM, UNSPECIFIED Status: Chronic (21) PVD (peripheral vascular disease) Code(s): I73.9 - PERIPHERAL VASCULAR DISEASE, UNSPECIFIED Status: Chronic (22) Protein-calorie malnutrition, moderate Code(s): E44.0 - MODERATE PROTEIN-CALORIE MALNUTRITION Status: Chronic (23) Hypomagnesemia Code(s): E83.42 - HYPOMAGNESEMIA Status: Acute (24) Thrombocytopenia Code(s): D69.6 - THROMBOCYTOPENIA, UNSPECIFIED Status: Chronic - Plan continue antibiotics, PT/OT, respiratory therapy, incentive spirometry, out of bed/ambulate, DVT proph w/SCDs extremly poor prognosis. -: cont IV vancomycin for now. Appreciate ID help as well. -: Pt can not have MRI w/o sedation & can't be sedated d/t radha poor outcome -: Needs [place]-defer to cardiology.follow Cx results -: Need Toe amputation but too unstable . * .rate controlled on Digoxin,Coreg and Po amiodarone * Monitor platelets. not on any Therapeutic Anticoagulation * restart JOSE A-I,statin. * hold ASA due to high risk of bleeding w thrombocytopenia * Lantus w SSI * restart Symbicort * restart Levothyroxine * am labs Review of Systems - Review of Systems Constitutional: weakness, malaise. negative: fever, chills, sweats, other Respiratory: negative: Cough, Dry, Shortness of Breath, Hemoptysis, SOB with Excertion, Pleuritic Pain, Sputum, Wheezing Cardiovascular: negative: chest pain, palpitations, orthopnea, paroxysmal nocturnal dyspnea, edema, light headedness, other Gastrointestinal: negative: Nausea, Vomiting, Abdominal Pain, Diarrhea, Constipation, Melena, Hematochezia, Other Genitourinary: negative: Dysuria, Frequency, Incontinence, Hematuria, Retention , Other Musculoskeletal: negative: Neck Pain, Shoulder Pain, Arm Pain, Back Pain, Hand Pain, Leg Pain, Foot Pain, Other Skin: negative: Rash, Lesions, Arnoldo, Bruising, Other Neurological: negative: Weakness, Numbness, Incoordination, Change in Speech, Confusion, Seizures, Other - Medications/Allergies Allergies/Adverse Reactions: Allergies Allergy/AdvReac Type Severity Reaction Status Date / Time No Known Allergies Allergy Unverified 07/23/17 10:34 Medications: Current Medications Acetaminophen (Tylenol) 650 mg PO Q4H PRN PRN Reason: Headache/Fever or Pain Last Admin: 10/18/17 20:52 Dose: 650 mg Al Hydroxide/Mg Hydroxide (Maalox) 30 ml PO Q6H PRN PRN Reason: Heartburn or Indigestion Albuterol/Ipratropium (Duoneb) 3 ml NEB [id number] [facility] Last Admin: 10/19/17 13:27 Dose: 3 ml Amiodarone HCl (Cordarone) 200 mg PO BID [facility] Last Admin: 10/19/17 08:47 Dose: 200 mg Artificial Tears (Tears Naturale) 0 drop EA EYE PRN PRN PRN Reason: Dry Eyes Budesonide (Pulmicort Neb Solution) 0.5 mg INH BID-RT [facility] Last Admin: 10/19/17 08:05 Dose: 0.5 mg Carvedilol (Coreg) 25 mg PO BID-WM [facility] Last Admin: 10/19/17 08:48 Dose: 25 mg Dextrose/Water (Dextrose 50%) 25 gm SLOW IVP PRN PRN PRN Reason: Hypoglycemia Digoxin (Lanoxin) 0.125 mg PO QAM [facility] Last Admin: 10/19/17 08:47 Dose: 0.125 mg Duloxetine HCl (Cymbalta) 30 mg PO DAILY [facility] Last Admin: 10/19/17 08:47 Dose: 30 mg Gabapentin (Neurontin) 300 mg PO TID [facility] Last Admin: 10/19/17 08:48 Dose: 300 mg Glucagon (Glucagon) 1 mg IM PRN PRN PRN Reason: Hypoglycemia Guaifenesin (Robitussin Sf) 200 mg PO Q4H PRN PRN Reason: Cough Hydralazine HCl (Apresoline) 10 mg SLOW IVP Q4H PRN PRN Reason: Systolic BP > 180 Hydromorphone HCl (Dilaudid Cadd) 0 mg IV INF PRN PRN Reason: Pain Last Admin: 10/17/17 17:49 Dose: 10 mg Dextrose/Water (D5w) 1,000 mls @ 0 mls/hr IV .Q0M PRN; As Directed PRN Reason: Hypoglycemia Insulin Glargine 10 units/ (Miscellaneous Medication) 0.1 mls @ 0 mls/hr SC BID [facility] Last Admin: 10/19/17 12:34 Dose: Not Given Vancomycin HCl 2 gm/ Sodium (Chloride) 500 mls @ 250 mls/hr IVPB 0300 [facility] Last Admin: 10/19/17 03:16 Dose: 500 mls Insulin Human Lispro (Humalog) 0 units SC .MODERATE SLIDING SC PRN PRN Reason: Moderate Correctional Scale Last Admin: 10/16/17 11:49 Dose: 4 unit Insulin Human Lispro (Humalog) 0 units SC .BEDTIME SLIDING SC PRN PRN Reason: Bedtime Correctional Scale Labetalol HCl (Normodyne) 20 mg SLOW IVP Q4H PRN PRN Reason: Systolic BP > 180 Last Admin: 10/18/17 06:33 Dose: 20 mg Levothyroxine Sodium (Synthroid) 175 mcg PO 0600 [facility] Last Admin: 10/19/17 05:40 Dose: 175 mcg Loperamide HCl (Imodium) 2 mg PO PRN PRN PRN Reason: Diarrhea/Loose Stools Loratadine (Claritin) 10 mg PO DAILYPRN PRN PRN Reason: Sinus Symptoms Magnesium Hydroxide (Milk Of Magnesium) 30 ml PO DAILYPRN PRN PRN Reason: Constipation Mineral Oil/White Petrolatum (Eucerin Cream) 0 gm TOP BIDPRN PRN PRN Reason: Dry Skin Miscellaneous Medication (Pharmacy To Dose) 1 each IVPB PRN PRN PRN Reason: Pharmacy to dose Nitroglycerin (Nitrostat) 0.4 mg SL Q5MIN PRN PRN Reason: Chest Pain Ondansetron HCl (Zofran Odt) 4 mg PO Q6H PRN PRN Reason: Nausea/Vomiting Ondansetron HCl (Zofran) 4 mg IVP Q6H PRN PRN Reason: Nausea/Vomiting Phenol (Chloraseptic [place] 180 Ml Bot) 0 ml PO PRN PRN PRN Reason: Sore Throat Potassium Chloride (K-Dur) 20 meq PO QAM-WM [facility] Last Admin: 10/19/17 08:47 Dose: 20 meq Saccharomyces Boulardii (Florastor) 250 mg PO DAILY [facility] Last Admin: 10/19/17 12:34 Dose: 250 mg Senna (Senokot) 2 tab PO HSPRN PRN PRN Reason: Constipation Sodium Chloride ([place] Nasal [place] 0.65%) 0 ml EA NARE QIDPRN PRN PRN Reason: Nasal Congestion Sodium Chloride (Flush - Normal Saline) 10 ml IVF Q12HR [facility] Last Admin: 10/19/17 12:34 Dose: 10 ml Sodium Chloride (Flush - Normal Saline) 10 ml IVF PRN PRN PRN Reason: Saline Flush
--- NOTE | 2017-10-19 15:02 | EKG ---
Test Reason : REPEAT EKG Blood Pressure : / mmHG Vent. Rate : 174 BPM Atrial Rate : 178 BPM P-R Int : 000 ms QRS Dur : 100 ms QT Int : 264 ms P-R-T Axes : 000 047 210 degrees QTc Int : 449 ms Atrial fibrillation with rapid ventricular response Marked ST abnormality, possible inferior subendocardial injury Marked ST abnormality, possible anterior subendocardial injury Abnormal ECG Confirmed by NATHAN MTZ ([id number]), editor index JEET RIGGS ([id number]) on 10/19/2017 3:01:40 PM Referred By: Confirmed By:NATHAN MTZ
[2017-10-19] MEDS ORDERED: traZODone HCl 50 MG TAB PO PRN (15:10)
[2017-10-19 16:07] LABS: Magnesium 1.3 mg/dL (1.6-2.6)
--- NOTE | 2017-10-19 16:20 | PDOC.EVN ---
Event Note - Event Note Event Note: Code status discussed with patient he is made aware of the seriousness of his acute illness and untreatable nature of his chronic conditions. Pt was surprised to hear how sick he is. All available options outlined. Made aware that if were to get intubated ,likely outcome would be poor including permanent dependence on ventilator given extreme poor cardiac condition and multiple co- morbidities. he understands all this and decides to change his code status from Full to DNR/ DNI at this time All Qs answered. RN notified. order entered in chart. Time spent in discussion 17 minutes
[2017-10-19] MEDS ORDERED: Potassium Chloride 20 MEQ TAB PO SCH (16:30)
--- NOTE | 2017-10-19 16:45 | PRG ---
DATE OF SERVICE: 10/19/2017 SUBJECTIVE: He was transferred to the yesterday, chronic issues. He is complaining of severe pain. OBJECTIVE: VITAL SIGNS: Sats 92% on room air, temperature is 98.2, pulse 62, blood pressure 106/61. CHEST: Decreased breath sounds without any wheezing. CARDIAC: Normal S1, S2, no gallops. ABDOMEN: Soft, no masses. IMPRESSION: 1. Chronic obstructive pulmonary disease. 2. Supraventricular tachycardia. 3. Chronic pain. PLAN: All cultures are so far negative. He has been seen by Infectious Disease. He has cirrhosis of the liver. He got MRSA sepsis with possible splenic infarct. Continue pain relief. Continue IV antibiotics, supportive care. We will follow.
[2017-10-19] MEDS: Atorvastatin Calcium 40 MG TAB PO SCH (21:20)
[2017-10-20] MEDS: Levothyroxine 175 MCG TAB PO SCH (05:29)
[2017-10-20 06:24] LABS: ALT (SGPT) 75 U/L (8-55); AST (SGOT) 95 U/L (5-34); Albumin 2.1 g/dL (3.4-4.8); Alkaline Phosphatase 618 U/L (40-150); Anion Gap 8 mmol/L (10-20); BUN (Urea Nitrogen) 19 mg/dL (8.4-25.7); Bilirubin, Direct 0.7 mg/dL (0.1-0.3); Bilirubin, Total 1.1 mg/dL (0.2-1.2); Calc. Creatinine Clearance 102 mL/min (70-130); Calcium 7.4 mg/dL (7.8-10.44); Carbon Dioxide 24 mmol/L (23-31); Chloride 100 mmol/L (98-107); Estimated GFR-MDRD Greater than 90; Glucose 251 mg/dL (83-110); Potassium 3.2 mmol/L (3.5-5.1); Protein, Total 5.6 g/dL (5.8-8.1); Sodium 129 mmol/L (136-145)
[2017-10-20 06:25] LABS: #Eosinphils 0.1 thou/uL (0.0-0.7); #Lymphocytes 1.1 thou/uL (1.20-3.40); #Monocytes 0.8 thou/uL (0.11-0.59); #Neutrophils 4.6 thou/uL (1.40-6.50); %Basophils 0.1 % (0.0-1.0); %Eosinophils 1.7 % (0.0-10.0); %Lymphocytes 16.4 % (21.0-51.0); %Monocytes 11.6 % (0.0-10.0); %Neutrophils 70.3 % (42.0-75.0); Hemoglobin 9.7 g/dL (14.0-18.0); Mean Corpuscular HGB CONC 32.2 g/dL (32.0-36.0); Mean Corpuscular Hemoglobin 29.3 pg (27.0-31.0); Mean Corpuscular Volume 91.1 fL (78.0-98.0); Mean Platelet Volume 9.3 fL (7.4-10.4); Platelet Count 130 thou/uL (130-400); RBC Distribution Width 17.1 % (11.5-14.5); Red Blood Cell (RBC) Count 3.29 mill/uL (4.70-6.10); White Blood Cell (WBC) Count 6.6 thou/uL (4.8-10.8)
[2017-10-20] MEDS: Budesonide 0.5 MG/2 ML NEB INH SCH ×2 (07:52→19:08)
[2017-10-20] MEDS: DULoxetine 30 MG CAP PO SCH (08:56)
[2017-10-20] MEDS: Saccharomyces boulardii 250 MG CAP PO SCH (08:56)
[2017-10-20] MEDS: Gabapentin 300 MG CAP PO SCH ×3 (08:56→20:50)
[2017-10-20] MEDS: Digoxin 0.125 MG TAB PO SCH (08:56)
[2017-10-20] MEDS: Amiodarone 200 MG TAB PO SCH ×2 (08:56→20:51)
[2017-10-20] MEDS: Potassium Chloride 20 MEQ TAB PO SCH (08:57)
[2017-10-20] MEDS: Ferrous Sulfate 325 MG TAB PO SCH (08:57)
[2017-10-20] MEDS: Carvedilol 25 MG TAB PO SCH ×2 (08:57→16:54)
[2017-10-20] MEDS: Insulin Glargine 10 UNITS in Pre-Filled Syringe 1 EACH SC SCH ×2 (08:59→20:49)
[2017-10-20] MEDS ORDERED: Lisinopril 2.5 MG TAB PO SCH (09:00)
[2017-10-20] MEDS: HYDROmorphone 10 mg/100 ml CADD IV PRN (09:34)
[2017-10-20] MEDS: Milk Of Magnesia 30 ML UDCUP PO PRN (10:40)
[2017-10-20] MEDS: HumaLOG 300 UNITS/3 ML VIAL SC PRN ×3 (10:41→20:52)
--- NOTE | 2017-10-20 12:10 | PDOC.PN ---
- Subjective Encounter Start Date: 10/20/17 Encounter Start Time: 09:30 -: old records requested/rev Patient seen and examined for sepsis. No new complaints. No overnight events - Objective Resuscitation Status: Resuscitation Status DNR:Do Not Resuscitate MAR Reviewed: Yes Vital Signs & Weight: Vital Signs (12 hours) Temp Pulse Resp BP BP Pulse Ox 10/20/17 11:09 98.1 F 71 12 145/71 H 95 10/20/17 08:57 66 140/70 10/20/17 08:56 70 10/20/17 07:55 98.5 F 66 14 98 10/20/17 07:51 66 14 97 10/20/17 07:21 98.5 F 74 20 153/72 H 97 10/20/17 03:00 98.4 F 68 18 134/72 95 10/20/17 01:46 66 12 95 Weight Admit Weight 177 lb 0.499 oz Weight 192 lb 8 oz Most Recent Monitor Data Heart Rate from ECG 107 NIBP 110/67 NIBP BP-Mean 83 Respiration from ECG 17 SpO2 97 I&O: 10/19/17 10/20/17 10/21/17 06:59 06:59 06:59 Intake Total 1858 1630 480 Output Total 4600 2500 Balance -2742 -870 480 Result Diagrams: 10/20/17 06:05 10/20/17 06:05 Additional Labs: Accuchecks 10/20/17 10/20/17 10/19/17 10:33 05:27 20:26 POC Glucose 276 H 245 H 234 H 10/19/17 16:28 POC Glucose 218 H EKG Reviewed by me: Yes (afib) Phys Exam - Physical Examination Constitutional: NAD HEENT: PERRLA, moist MMs, sclera anicteric Neck: no JVD, supple Respiratory: no wheezing, no rales, no rhonchi Cardiovascular: irregular SM+ Gastrointestinal: soft, non-tender, no distention, positive bowel sounds Musculoskeletal: no edema, pulses present Neurological: non-focal Lymphatic: no nodes Psychiatric: normal affect, A&O x 3 Skin: no rash, normal turgor Dx/Plan (1) Acute kidney failure Status: Resolved (2) Atrial fibrillation with rapid ventricular response Code(s): I48.91 - UNSPECIFIED ATRIAL FIBRILLATION Status: Acute Comment: on amiodarone PO now with Digoxin and coreg.rate controlled (3) Demand ischemia of myocardium Code(s): I24.8 - OTHER FORMS OF ACUTE ISCHEMIC HEART DISEASE Status: Acute (4) Hematuria, gross Status: Acute Comment: s/p Viramontes by urology w dorsal slit (5) Hyponatremia Code(s): E87.1 - HYPO-OSMOLALITY AND HYPONATREMIA Status: Acute (6) Lactic acidosis Code(s): E87.2 - ACIDOSIS Status: Resolved (7) Sepsis with acute organ dysfunction Code(s): A41.9 - SEPSIS, UNSPECIFIED ORGANISM; R65.20 - SEVERE SEPSIS WITHOUT SEPTIC SHOCK Status: Acute (8) Splenic infarct Code(s): D73.5 - INFARCTION OF SPLEEN Status: Acute Comment: ? septic embolization (9) 3-vessel CAD Status: Chronic (10) Alcoholic cirrhosis of liver Code(s): K70.30 - ALCOHOLIC CIRRHOSIS OF LIVER WITHOUT ASCITES Status: Chronic (11) Anemia, macrocytic Code(s): D53.9 - NUTRITIONAL ANEMIA, UNSPECIFIED Status: Chronic (12) Anxiety and depression Code(s): F41.9 - ANXIETY DISORDER, UNSPECIFIED; F32.9 - MAJOR DEPRESSIVE DISORDER, SINGLE EPISODE, UNSPECIFIED Status: Chronic (13) COPD (chronic obstructive pulmonary disease) Status: Chronic (14) Chronic combined systolic and diastolic CHF (congestive heart failure) Code(s): I50.42 - CHRONIC COMBINED SYSTOLIC AND DIASTOLIC HRT FAIL Status: Chronic Comment: Compensated for now (15) DM type 2 (diabetes mellitus, type 2) Status: Chronic Qualifiers: Diabetes mellitus senior care insulin use: with senior care use Diabetes mellitus complication status: without complication Qualified Code(s): E11.9 - Type 2 diabetes mellitus without complications; Z79.4 - perioperative assistant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; Z79.4 - perioperative assistant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; Z79.4 - perioperative assistant ( 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; Z79.4 - correction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 (16) Dyslipidemia Code(s): E78.5 - HYPERLIPIDEMIA, UNSPECIFIED Status: Chronic (17) GERD (gastroesophageal reflux disease) Code(s): K21.9 - GASTRO-ESOPHAGEAL REFLUX DISEASE WITHOUT ESOPHAGITIS Status: Chronic (18) HTN (hypertension) Code(s): I10 - ESSENTIAL (PRIMARY) HYPERTENSION Status: Chronic (19) Hypoalbuminemia due to protein-calorie malnutrition Code(s): E46 - UNSPECIFIED PROTEIN-CALORIE MALNUTRITION Status: Chronic (20) Hypothyroidism Code(s): E03.9 - HYPOTHYROIDISM, UNSPECIFIED Status: Chronic (21) PVD (peripheral vascular disease) Code(s): I73.9 - PERIPHERAL VASCULAR DISEASE, UNSPECIFIED Status: Chronic (22) Protein-calorie malnutrition, moderate Code(s): E44.0 - MODERATE PROTEIN-CALORIE MALNUTRITION Status: Chronic (23) Thrombocytopenia Code(s): D69.6 - THROMBOCYTOPENIA, UNSPECIFIED Status: Chronic (24) Tobacco abuse Code(s): Z72.0 - TOBACCO USE Status: Chronic (25) Aortic stenosis Code(s): I35.0 - NONRHEUMATIC AORTIC (VALVE) STENOSIS Status: Chronic Comment: severe (26) Bacteremia due to methicillin resistant Staphylococcus aureus Code(s): R78.81 - BACTEREMIA Status: Acute Comment: Suspect Infective endocarditis and /or Diskitis (27) Gangrene of toe of right foot Code(s): I96 - GANGRENE, NOT ELSEWHERE CLASSIFIED Status: Acute (28) Cavitary lesion of lung Code(s): J98.4 - OTHER DISORDERS OF LUNG Status: Chronic Comment: Op work up done at [place] (29) UTI (urinary tract infection) Status: Acute (30) Hypokalemia Code(s): E87.6 - HYPOKALEMIA Status: Acute (31) Osteomyelitis of toe of right foot Code(s): M86.9 - OSTEOMYELITIS, UNSPECIFIED Status: Acute - Plan cont current plan of care, continue antibiotics * continue vancomycin * pain control with HARBOR TUG CAPTAIN * replace potassium * check magnesium * medication reviewed as below * symptomatic treatment. Review of Systems - Review of Systems Eyes: negative: Pain, Vision Change, Conjunctivae Inflammation, Eyelid Inflammation, Redness, Other ENT: negative: Ear Pain, Ear Discharge, Nose Pain, Nose Discharge, Nose Congestion, Mouth Pain, Mouth Swelling, Throat Pain, Throat Swelling, Other Respiratory: negative: Cough, Dry, Shortness of Breath, Hemoptysis, SOB with Excertion, Pleuritic Pain, Sputum, Wheezing Cardiovascular: negative: chest pain, palpitations, orthopnea, paroxysmal nocturnal dyspnea, edema, light headedness, other Gastrointestinal: negative: Nausea, Vomiting, Abdominal Pain, Diarrhea, Constipation, Melena, Hematochezia, Other Genitourinary: negative: Dysuria, Frequency, Incontinence, Hematuria, Retention , Other Musculoskeletal: Back Pain. negative: Neck Pain, Shoulder Pain, Arm Pain, Hand Pain, Leg Pain, Foot Pain, Other - Medications/Allergies Allergies/Adverse Reactions: Allergies Allergy/AdvReac Type Severity Reaction Status Date / Time No Known Allergies Allergy Unverified 07/23/17 10:34 Medications: Current Medications Acetaminophen (Tylenol) 650 mg PO Q4H PRN PRN Reason: Headache/Fever or Pain Last Admin: 10/18/17 20:52 Dose: 650 mg Al Hydroxide/Mg Hydroxide (Maalox) 30 ml PO Q6H PRN PRN Reason: Heartburn or Indigestion Albuterol/Ipratropium (Duoneb) 3 ml NEB [id number] [facility] Last Admin: 10/20/17 07:51 Dose: 3 ml Amiodarone HCl (Cordarone) 200 mg PO BID [facility] Last Admin: 10/20/17 08:56 Dose: 200 mg Artificial Tears (Tears Naturale) 0 drop EA EYE PRN PRN PRN Reason: Dry Eyes Atorvastatin Calcium (Lipitor) 40 mg PO HS [facility] Last Admin: 10/19/17 21:20 Dose: 40 mg Budesonide (Pulmicort Neb Solution) 0.5 mg INH BID-RT [facility] Last Admin: 10/20/17 07:52 Dose: 0.5 mg Carvedilol (Coreg) 25 mg PO BID-WM [facility] Last Admin: 10/20/17 08:57 Dose: 25 mg Dextrose/Water (Dextrose 50%) 25 gm SLOW IVP PRN PRN PRN Reason: Hypoglycemia Digoxin (Lanoxin) 0.125 mg PO QAM [facility] Last Admin: 10/20/17 08:56 Dose: 0.125 mg Duloxetine HCl (Cymbalta) 30 mg PO DAILY [facility] Last Admin: 10/20/17 08:56 Dose: 30 mg Ferrous Sulfate (Feosol) 325 mg PO DAILY [facility] Last Admin: 10/20/17 08:57 Dose: 325 mg Gabapentin (Neurontin) 300 mg PO TID [facility] Last Admin: 10/20/17 08:56 Dose: 300 mg Glucagon (Glucagon) 1 mg IM PRN PRN PRN Reason: Hypoglycemia Guaifenesin (Robitussin Sf) 200 mg PO Q4H PRN PRN Reason: Cough Hydralazine HCl (Apresoline) 10 mg SLOW IVP Q4H PRN PRN Reason: Systolic BP > 180 Hydromorphone HCl (Dilaudid Cadd) 0 mg IV INF PRN PRN Reason: Pain Last Admin: 10/20/17 09:34 Dose: 10 mg Dextrose/Water (D5w) 1,000 mls @ 0 mls/hr IV .Q0M PRN; As Directed PRN Reason: Hypoglycemia Insulin Glargine 10 units/ (Miscellaneous Medication) 0.1 mls @ 0 mls/hr SC BID [facility] Last Admin: 10/20/17 08:59 Dose: 0.1 mls Vancomycin HCl 2 gm/ Sodium (Chloride) 500 mls @ 250 mls/hr IVPB 0300 [facility] Last Admin: 10/20/17 02:45 Dose: 500 mls Insulin Human Lispro (Humalog) 0 units SC .MODERATE SLIDING SC PRN PRN Reason: Moderate Correctional Scale Last Admin: 10/20/17 10:41 Dose: 6 unit Insulin Human Lispro (Humalog) 0 units SC .BEDTIME SLIDING SC PRN PRN Reason: Bedtime Correctional Scale Labetalol HCl (Normodyne) 20 mg SLOW IVP Q4H PRN PRN Reason: Systolic BP > 180 Last Admin: 10/18/17 06:33 Dose: 20 mg Levothyroxine Sodium (Synthroid) 175 mcg PO 0600 [facility] Last Admin: 10/20/17 05:29 Dose: 175 mcg Lisinopril (Zestril) 2.5 mg PO DAILY [facility] Last Admin: 10/20/17 08:57 Dose: 2.5 mg Loperamide HCl (Imodium) 2 mg PO PRN PRN PRN Reason: Diarrhea/Loose Stools Loratadine (Claritin) 10 mg PO DAILYPRN PRN PRN Reason: Sinus Symptoms Magnesium Hydroxide (Milk Of Magnesium) 30 ml PO DAILYPRN PRN PRN Reason: Constipation Last Admin: 10/20/17 10:40 Dose: 30 ml Mineral Oil/White Petrolatum (Eucerin Cream) 0 gm TOP BIDPRN PRN PRN Reason: Dry Skin Miscellaneous Medication (Pharmacy To Dose) 1 each IVPB PRN PRN PRN Reason: Pharmacy to dose Nitroglycerin (Nitrostat) 0.4 mg SL Q5MIN PRN PRN Reason: Chest Pain Ondansetron HCl (Zofran Odt) 4 mg PO Q6H PRN PRN Reason: Nausea/Vomiting Ondansetron HCl (Zofran) 4 mg IVP Q6H PRN PRN Reason: Nausea/Vomiting Phenol (Chloraseptic [place] 180 Ml Bot) 0 ml PO PRN PRN PRN Reason: Sore Throat Potassium Chloride (K-Dur) 20 meq PO QAM-WM [facility] Last Admin: 10/20/17 08:57 Dose: 20 meq Saccharomyces Boulardii (Florastor) 250 mg PO DAILY [facility] Last Admin: 10/20/17 08:56 Dose: 250 mg Senna (Senokot) 2 tab PO HSPRN PRN PRN Reason: Constipation Sodium Chloride ([place] Nasal [place] 0.65%) 0 ml EA NARE QIDPRN PRN PRN Reason: Nasal Congestion Sodium Chloride (Flush - Normal Saline) 10 ml IVF Q12HR [facility] Last Admin: 10/20/17 09:33 Dose: 10 ml Sodium Chloride (Flush - Normal Saline) 10 ml IVF PRN PRN PRN Reason: Saline Flush Thiamine HCl (Thiamine) 100 mg PO DAILY [facility] Last Admin: 10/20/17 08:56 Dose: 100 mg Trazodone HCl (Desyrel) 100 mg PO HS PRN PRN Reason: Insomnia
--- NOTE | 2017-10-20 13:14 | PRG ---
DATE OF SERVICE: 10/20/2017 SUBJECTIVE: This morning, he is awake and responsive. He has still got significant back pain. OBJECTIVE: VITAL SIGNS: Sats are 90 on room air, blood pressure 140/70, temperature is 98. CHEST: Decreased breath sounds without any wheezing. CARDIAC: Normal S1 and S2, no gallops. ABDOMEN: Soft. No masses. LABORATORY DATA: Electrolytes are normal. Alkaline phosphatase . Liver function shows an AST of 95. White count 6000, H and H 9 and 30, platelet count is normal. ASSESSMENT: Staphylococcus sepsis, severe deconditioning, chronic back pain, osteomyelitis, supraven tricular tachycardia. PLAN: Continue vancomycin. Supportive care. Neb treatments. He can probably be transferred back to the monitored bed. Initiated eventually placement.
[2017-10-20] MEDS: Atorvastatin Calcium 40 MG TAB PO SCH (20:50)
[2017-10-21 01:23] LABS: Hemoglobin 9.6 g/dL (14.0-18.0)
[2017-10-21] MEDS ORDERED: Preparation H Suppository PR PRN (01:24)
[2017-10-21 02:00] LABS: Vancomycin, Trough 16.6 ug/mL
[2017-10-21] MEDS ORDERED: Sodium Chloride 0.9% 500 ML IV SCH (02:00)
[2017-10-21] MEDS ORDERED: Sodium Chloride 0.9% 1,000 ML IV SCH (03:15)
[2017-10-21] MEDS: Sodium Chloride 0.9% 1,000 ML IV SCH ×3 (03:26→17:02)
[2017-10-21 04:10] LABS: Hemoglobin 7.8 g/dL (14.0-18.0)
[2017-10-21] MEDS: Levothyroxine 175 MCG TAB PO SCH (05:43)
[2017-10-21] MEDS: Budesonide 0.5 MG/2 ML NEB INH SCH ×3 (07:50→18:51)
[2017-10-21 08:46] LABS: Anion Gap 10 mmol/L (10-20); BUN (Urea Nitrogen) 19 mg/dL (8.4-25.7); Calc. Creatinine Clearance 105 mL/min (70-130); Calcium 7.6 mg/dL (7.8-10.44); Carbon Dioxide 24 mmol/L (23-31); Chloride 101 mmol/L (98-107); Estimated GFR-MDRD Greater than 90; Glucose 183 mg/dL (83-110); Magnesium 1.5 mg/dL (1.6-2.6); Potassium 3.4 mmol/L (3.5-5.1); Sodium 132 mmol/L (136-145)
[2017-10-21] MEDS ORDERED: Magnesium Sulfate 4 GM in Sodium Chloride 0.9% 250 ML 250 ML IVPB SCH (09:45)
[2017-10-21] MEDS ORDERED: Potassium Chloride 20 MEQ/100 ML PREMIX BAG IVPB SCH (09:45)
[2017-10-21] MEDS: Digoxin 0.125 MG TAB PO SCH (10:12)
[2017-10-21] MEDS: Potassium Chloride 20 MEQ TAB PO SCH (10:12)
[2017-10-21] MEDS: Amiodarone 200 MG TAB PO SCH (10:12)
[2017-10-21] MEDS: Gabapentin 300 MG CAP PO SCH ×3 (10:13→21:41)
[2017-10-21] MEDS: Insulin Glargine 10 UNITS in Pre-Filled Syringe 1 EACH SC SCH ×2 (10:13→21:40)
[2017-10-21] MEDS: DULoxetine 30 MG CAP PO SCH (10:13)
[2017-10-21] MEDS: Ferrous Sulfate 325 MG TAB PO SCH (10:13)
[2017-10-21] MEDS: Saccharomyces boulardii 250 MG CAP PO SCH (10:13)
--- NOTE | 2017-10-21 10:55 | PDOC.PN ---
- Subjective Encounter Start Date: 10/21/17 Encounter Start Time: 09:10 this morning pt has lower GI bleed with blood clot, he was hypotensive, required bolus and blood transfusion - Objective Resuscitation Status: Resuscitation Status DNR:Do Not Resuscitate MAR Reviewed: Yes Vital Signs & Weight: Vital Signs (12 hours) Temp Pulse Pulse Resp BP BP BP 10/21/17 10:12 71 10/21/17 09:15 98.0 F 74 18 106/63 10/21/17 08:09 98.4 F 71 20 10/21/17 07:37 98.0 F 70 18 100/51 L 10/21/17 07:30 98.0 F 70 18 100/51 L 10/21/17 06:27 98.2 F 71 18 101/58 L 10/21/17 04:56 97.8 F 69 18 89/42 L 10/21/17 04:41 97.6 F 70 18 100/53 L 10/21/17 03:55 97.0 F L 66 17 109/57 L 10/21/17 03:18 72/48 L 10/21/17 02:45 98/52 L 10/21/17 01:30 98/66 10/21/17 00:02 97.6 F 63 16 154/71 H 10/20/17 23:08 63 12 BP Pulse Ox 10/21/17 10:12 10/21/17 09:15 95 10/21/17 08:09 100/51 L 97 10/21/17 07:37 96 10/21/17 07:30 96 10/21/17 06:27 10/21/17 04:56 10/21/17 04:41 10/21/17 03:55 99 10/21/17 03:18 10/21/17 02:45 10/21/17 01:30 10/21/17 00:02 97 10/20/17 23:08 96 Weight Admit Weight 177 lb 0.499 oz Weight 194 lb Most Recent Monitor Data Heart Rate from ECG 107 NIBP 110/67 NIBP BP-Mean 83 Respiration from ECG 17 SpO2 97 I&O: 10/20/17 10/21/17 10/22/17 06:59 06:59 06:59 Intake Total 1630 3819.2 606 Output Total 2500 2225 Balance -870 1594.2 606 Result Diagrams: 10/21/17 03:41 10/21/17 01:11 Additional Labs: Accuchecks 10/21/17 10/20/17 10/20/17 05:41 19:47 16:32 POC Glucose 229 H 225 H 225 H EKG Reviewed by me: Yes (afib) Phys Exam - Physical Examination Constitutional: NAD HEENT: PERRLA, moist MMs, sclera anicteric Neck: no JVD, supple Respiratory: no wheezing, no rales, no rhonchi Cardiovascular: irregular SM+ Gastrointestinal: soft, non-tender, no distention, positive bowel sounds Musculoskeletal: no edema, pulses present Lymphatic: no nodes Psychiatric: normal affect Skin: no rash, normal turgor Dx/Plan (1) Acute kidney failure Status: Resolved (2) Atrial fibrillation with rapid ventricular response Code(s): I48.91 - UNSPECIFIED ATRIAL FIBRILLATION Status: Acute Comment: on amiodarone PO now with Digoxin and coreg.rate controlled (3) Demand ischemia of myocardium Code(s): I24.8 - OTHER FORMS OF ACUTE ISCHEMIC HEART DISEASE Status: Acute (4) Hematuria, gross Status: Acute Comment: s/p Bravo by urology w dorsal slit (5) Hyponatremia Code(s): E87.1 - HYPO-OSMOLALITY AND HYPONATREMIA Status: Acute (6) Lactic acidosis Code(s): E87.2 - ACIDOSIS Status: Resolved (7) Sepsis with acute organ dysfunction Code(s): A41.9 - SEPSIS, UNSPECIFIED ORGANISM; R65.20 - SEVERE SEPSIS WITHOUT SEPTIC SHOCK Status: Acute (8) Splenic infarct Code(s): D73.5 - INFARCTION OF SPLEEN Status: Acute Comment: ? septic embolization (9) 3-vessel CAD Status: Chronic (10) Alcoholic cirrhosis of liver Code(s): K70.30 - ALCOHOLIC CIRRHOSIS OF LIVER WITHOUT ASCITES Status: Chronic (11) Anemia, macrocytic Code(s): D53.9 - NUTRITIONAL ANEMIA, UNSPECIFIED Status: Chronic (12) Anxiety and depression Code(s): F41.9 - ANXIETY DISORDER, UNSPECIFIED; F32.9 - MAJOR DEPRESSIVE DISORDER, SINGLE EPISODE, UNSPECIFIED Status: Chronic (13) COPD (chronic obstructive pulmonary disease) Status: Chronic (14) Chronic combined systolic and diastolic CHF (congestive heart failure) Code(s): I50.42 - CHRONIC COMBINED SYSTOLIC AND DIASTOLIC HRT FAIL Status: Chronic Comment: Compensated for now (15) DM type 2 (diabetes mellitus, type 2) Status: Chronic Qualifiers: 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: with snf use Diabetes mellitus complication status: without complication Qualified Code(s): E11.9 - Type 2 diabetes mellitus without complications; Z79.4 - long-term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; 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; Z79.4 - long-term ( 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; Z79.4 - long-term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 (16) Dyslipidemia Code(s): E78.5 - HYPERLIPIDEMIA, UNSPECIFIED Status: Chronic (17) GERD (gastroesophageal reflux disease) Code(s): K21.9 - GASTRO-ESOPHAGEAL REFLUX DISEASE WITHOUT ESOPHAGITIS Status: Chronic (18) HTN (hypertension) Code(s): I10 - ESSENTIAL (PRIMARY) HYPERTENSION Status: Chronic (19) Hypoalbuminemia due to protein-calorie malnutrition Code(s): E46 - UNSPECIFIED PROTEIN-CALORIE MALNUTRITION Status: Chronic (20) Hypothyroidism Code(s): E03.9 - HYPOTHYROIDISM, UNSPECIFIED Status: Chronic (21) PVD (peripheral vascular disease) Code(s): I73.9 - PERIPHERAL VASCULAR DISEASE, UNSPECIFIED Status: Chronic (22) Protein-calorie malnutrition, moderate Code(s): E44.0 - MODERATE PROTEIN-CALORIE MALNUTRITION Status: Chronic (23) Thrombocytopenia Code(s): D69.6 - THROMBOCYTOPENIA, UNSPECIFIED Status: Chronic (24) Tobacco abuse Code(s): Z72.0 - TOBACCO USE Status: Chronic (25) Aortic stenosis Code(s): I35.0 - NONRHEUMATIC AORTIC (VALVE) STENOSIS Status: Chronic Comment: severe (26) Bacteremia due to methicillin resistant Staphylococcus aureus Code(s): R78.81 - BACTEREMIA Status: Acute Comment: Suspect Infective endocarditis and /or Diskitis (27) Gangrene of toe of right foot Code(s): I96 - GANGRENE, NOT ELSEWHERE CLASSIFIED Status: Acute (28) Cavitary lesion of lung Code(s): J98.4 - OTHER DISORDERS OF LUNG Status: Chronic Comment: Op work up done at ID (29) UTI (urinary tract infection) Status: Acute (30) Hypokalemia Code(s): E87.6 - HYPOKALEMIA Status: Acute (31) Osteomyelitis of toe of right foot Code(s): M86.9 - OSTEOMYELITIS, UNSPECIFIED Status: Acute (32) Acute GI bleeding Code(s): K92.2 - GASTROINTESTINAL HEMORRHAGE, UNSPECIFIED Status: Acute (33) Anemia due to acute blood loss Code(s): D62 - ACUTE POSTHEMORRHAGIC ANEMIA Status: Acute (34) Hypomagnesemia Code(s): E83.42 - HYPOMAGNESEMIA Status: Acute (35) Hypotension Status: Acute - Plan cont current plan of care, bravo catheter, continue antibiotics, home health care social worker , DVT proph w/SCDs * continue vancomycin * continue IVF * GI consulted * monitor H & H * transfuse as needed * prognosis is very poor * will dc all BP meds for now. * replace magnesium * change to IV protonix Review of Systems - Review of Systems Eyes: negative: Pain, Vision Change, Conjunctivae Inflammation, Eyelid Inflammation, Redness, Other ENT: negative: Ear Pain, Ear Discharge, Nose Pain, Nose Discharge, Nose Congestion, Mouth Pain, Mouth Swelling, Throat Pain, Throat Swelling, Other Respiratory: negative: Cough, Dry, Shortness of Breath, Hemoptysis, SOB with Excertion, Pleuritic Pain, Sputum, Wheezing Cardiovascular: negative: chest pain, palpitations, orthopnea, paroxysmal nocturnal dyspnea, edema, light headedness, other Gastrointestinal: Hematochezia. negative: Nausea, Vomiting, Abdominal Pain, Diarrhea, Constipation, Melena, Other Genitourinary: negative: Dysuria, Frequency, Incontinence, Hematuria, Retention , Other Musculoskeletal: Back Pain. negative: Neck Pain, Shoulder Pain, Arm Pain, Hand Pain, Leg Pain, Foot Pain, Other - Medications/Allergies Allergies/Adverse Reactions: Allergies Allergy/AdvReac Type Severity Reaction Status Date / Time No Known Allergies Allergy Unverified 07/23/17 10:34 Medications: Current Medications Acetaminophen (Tylenol) 650 mg PO Q4H PRN PRN Reason: Headache/Fever or Pain Last Admin: 10/18/17 20:52 Dose: 650 mg Al Hydroxide/Mg Hydroxide (Maalox) 30 ml PO Q6H PRN PRN Reason: Heartburn or Indigestion Albuterol/Ipratropium (Duoneb) 3 ml NEB [id number] MICHAELA Last Admin: 10/21/17 07:58 Dose: Not Given Amiodarone HCl (Cordarone) 200 mg PO BID [facility] Last Admin: 10/21/17 10:12 Dose: Not Given Artificial Tears (Tears Naturale) 0 drop EA EYE PRN PRN PRN Reason: Dry Eyes Atorvastatin Calcium (Lipitor) 40 mg PO HS [facility] Last Admin: 10/20/17 20:50 Dose: 40 mg Budesonide (Pulmicort Neb Solution) 0.5 mg INH BID-RT [facility] Last Admin: 10/21/17 07:59 Dose: Not Given Dextrose/Water (Dextrose 50%) 25 gm SLOW IVP PRN PRN PRN Reason: Hypoglycemia Digoxin (Lanoxin) 0.125 mg PO QAM [facility] Last Admin: 10/21/17 10:12 Dose: Not Given Duloxetine HCl (Cymbalta) 30 mg PO DAILY [facility] Last Admin: 10/21/17 10:13 Dose: Not Given Ferrous Sulfate (Feosol) 325 mg PO DAILY [facility] Last Admin: 10/21/17 10:13 Dose: Not Given Gabapentin (Neurontin) 300 mg PO TID [facility] Last Admin: 10/21/17 10:13 Dose: Not Given Glucagon (Glucagon) 1 mg IM PRN PRN PRN Reason: Hypoglycemia Guaifenesin (Robitussin Sf) 200 mg PO Q4H PRN PRN Reason: Cough Hydralazine HCl (Apresoline) 10 mg SLOW IVP Q4H PRN PRN Reason: Systolic BP > 180 Hydromorphone HCl (Dilaudid Cadd) 0 mg IV INF PRN PRN Reason: Pain Last Admin: 10/20/17 09:34 Dose: 10 mg Dextrose/Water (D5w) 1,000 mls @ 0 mls/hr IV .Q0M PRN; As Directed PRN Reason: Hypoglycemia Insulin Glargine 10 units/ (Miscellaneous Medication) 0.1 mls @ 0 mls/hr SC BID [facility] Last Admin: 10/21/17 10:13 Dose: Not Given Vancomycin HCl 2 gm/ Sodium (Chloride) 500 mls @ 250 mls/hr IVPB 0300 [facility] Last Admin: 10/21/17 03:21 Dose: 500 mls Sodium Chloride (Normal Saline 0.9%) 1,000 mls @ 125 mls/hr IV .Q8H [facility] Last Admin: 10/21/17 03:26 Dose: 1,000 mls Magnesium Sulfate 4 gm/ Sodium (Chloride) 258 mls @ 86 mls/hr IVPB ONE [facility] Stop: 10/21/17 13:00 Insulin Human Lispro (Humalog) 0 units SC .MODERATE SLIDING SC PRN PRN Reason: Moderate Correctional Scale Last Admin: 10/20/17 16:54 Dose: 4 unit Insulin Human Lispro (Humalog) 0 units SC .BEDTIME SLIDING SC PRN PRN Reason: Bedtime Correctional Scale Last Admin: 10/20/17 20:52 Dose: 2 unit Labetalol HCl (Normodyne) 20 mg SLOW IVP Q4H PRN PRN Reason: Systolic BP > 180 Last Admin: 10/18/17 06:33 Dose: 20 mg Levothyroxine Sodium (Synthroid) 175 mcg PO 0600 [facility] Last Admin: 10/21/17 05:43 Dose: 175 mcg Loperamide HCl (Imodium) 2 mg PO PRN PRN PRN Reason: Diarrhea/Loose Stools Loratadine (Claritin) 10 mg PO DAILYPRN PRN PRN Reason: Sinus Symptoms Magnesium Hydroxide (Milk Of Magnesium) 30 ml PO DAILYPRN PRN PRN Reason: Constipation Last Admin: 10/20/17 10:40 Dose: 30 ml Mineral Oil/White Petrolatum (Eucerin Cream) 0 gm TOP BIDPRN PRN PRN Reason: Dry Skin Miscellaneous Medication (Pharmacy To Dose) 1 each IVPB PRN PRN PRN Reason: Pharmacy to dose Nitroglycerin (Nitrostat) 0.4 mg SL Q5MIN PRN PRN Reason: Chest Pain Ondansetron HCl (Zofran Odt) 4 mg PO Q6H PRN PRN Reason: Nausea/Vomiting Ondansetron HCl (Zofran) 4 mg IVP Q6H PRN PRN Reason: Nausea/Vomiting Phenol (Chloraseptic [place] 180 Ml Bot) 0 ml PO PRN PRN PRN Reason: Sore Throat Phenyleph/Shark Oil/[place] Butter (Preparation H) 1 supp UT QIDPRN PRN PRN Reason: Hemorrhoids Last Admin: 10/21/17 03:05 Dose: 1 supp Potassium Chloride (K-Dur) 20 meq PO QA-[facility] Last Admin: 10/21/17 10:12 Dose: Not Given Potassium Chloride (Kcl) 20 meq IVPB ONE MICHAELA Stop: 10/21/17 12:00 Saccharomyces Boulardii (Florastor) 250 mg PO DAILY [facility] Last Admin: 10/21/17 10:13 Dose: Not Given Senna (Senokot) 2 tab PO HSPRN PRN PRN Reason: Constipation Last Admin: 10/20/17 20:49 Dose: 2 tab Sodium Chloride (Octavia Nasal Compton 0.65%) 0 ml EA NARE QIDPRN PRN PRN Reason: Nasal Congestion Sodium Chloride (Flush - Normal Saline) 10 ml IVF Q12HR [facility] Last Admin: 10/21/17 10:13 Dose: Not Given Sodium Chloride (Flush - Normal Saline) 10 ml IVF PRN PRN PRN Reason: Saline Flush Thiamine HCl (Thiamine) 100 mg PO DAILY [facility] Last Admin: 10/21/17 10:13 Dose: Not Given Trazodone HCl (Desyrel) 100 mg PO HS PRN PRN Reason: Insomnia
--- NOTE | 2017-10-21 13:13 | PRG ---
DATE OF SERVICE: 10/21/2017 John Cruz was moved to the Intermediate Care Unit over the weekend. He has been having some recta l bleeding today. He had blood transfused earlier this morning. PHYSICAL EXAMINATION: VITAL SIGNS: He is afebrile, heart rate 74, respiratory rate is 99 on room air. Blood pressure 96/5 6. LUNGS: Clear. HEART: Regular rhythm. His murmur is unchanged. ABDOMEN: Soft. LABORATORY: Hemoglobin at 0341 was 7.8. He is now getting H&H q.6h. He has had 2 units of packed c ells. Gastroenterology has been consulted. IMPRESSION: Staph bacteremia with methicillin-resistant Staphylococcus aureus. I would think with his aortic stenosis it would have to be assumed that his valve is infected. Infectious Disease has seen Mr. Cruz back on the . If I recall correctly he has been scoped in the past and does not have varices even though he does castellano ve chronic liver dysfunction. Gastroenterology has been consulted. He will stay in the Intermediate Care Unit.
[2017-10-21 13:17] LABS: Hemoglobin 7.9 g/dL (14.0-18.0)
--- NOTE | 2017-10-21 13:18 | PDOC.CTH ---
Cardiology Progress Note - Subjective The pt seen and examined. Per RN, he has had Hematochezia x8 since last night. S/p 2units of PRBC tx today. - Objective Vital Signs Temp Pulse Pulse Resp BP BP BP 10/21/17 11:23 98.3 F 74 10/21/17 10:12 71 10/21/17 09:15 98.0 F 74 18 106/63 10/21/17 08:09 98.4 F 71 20 10/21/17 08:00 98.4 F 71 20 10/21/17 07:37 98.0 F 70 18 100/51 L 10/21/17 07:30 98.0 F 70 18 100/51 L 10/21/17 06:27 98.2 F 71 18 101/58 L 10/21/17 04:56 97.8 F 69 18 89/42 L 10/21/17 04:41 97.6 F 70 18 100/53 L 10/21/17 03:55 97.0 F L 66 17 109/57 L 10/21/17 03:18 72/48 L 10/21/17 02:45 98/52 L 10/21/17 01:30 98/66 BP Pulse Ox 10/21/17 11:23 96/56 L 99 10/21/17 10:12 10/21/17 09:15 95 10/21/17 08:09 100/51 L 97 10/21/17 08:00 97 10/21/17 07:37 96 10/21/17 07:30 96 10/21/17 06:27 10/21/17 04:56 10/21/17 04:41 10/21/17 03:55 99 10/21/17 03:18 10/21/17 02:45 10/21/17 01:30 Admit Weight 177 lb 0.499 oz Weight 194 lb 10/20/17 10/21/17 10/22/17 06:59 06:59 06:59 Intake Total 1630 3819.2 606 Output Total 2500 2225 Balance -870 1594.2 606 - Physical Examination General/Neuro: alert & oriented x3 Neck: no JVD present Lungs: other: (diminished at bases) Extremities: other: (No edema) - Telemetry Telemetry Rhythm: SR 80s - Labs Result Diagrams: 10/21/17 03:41 10/21/17 01:11 Troponin/CKMB CK-MB (CK-2) 2.9 ng/mL (0-6.6) 10/15/17 00:17 Troponin I 0.176 ng/mL (< 0.028) H 10/15/17 00:17 - Assessment/Plan 1. AFib with RVR - Converted back to SR at 0700 on 10/17/17; Stop Amiodarone due to increasing LFT level. Off Lovenox due to Hematochezia. Cont. to monitor on tele 2. Chronic combined HF - stable; cont. to monitor 3. HTN - BP med were held due to hypotensive 2/2 Anemia. 4. Chronic Anemia - worsened today due to hematochezia. S/p 2 units of PRBC tx today. 5. DM type 2 - managed by PCP 6. PVD with hx of all Lt digits and 2nd toe amputation and Rt 2nd toe gangrene - managed by PCP 7. Hx of liver dysfunction 2/2 to ETOH abuse - slightly elevated today. cont. to monitor 8. CODY - stable 9. 1.8 cm Lung mass - [facility] 10. Ex- smoker, quit in 04/2017 11. Severe - evaluated by Dr Gilbert in 07/2017 and the pt is not good candidate for ASR for now. MAR reviewed * Echo on 10/16/17 showed EF 50-55%, inferior wall jypokinesis, LVH, mod dilated LA, mild MR, mild TR, and severe with 0.87sq cm. * Possible [place] for possible endocarditis if no other source of the infection can be found Review of Systems - Review of Systems Constitutional: reports: no symptoms reported EENTM: reports: no symptoms reported Respiratory: reports: no symptoms reported Cardiac (ROS): reports: no symptoms reported ABD/GI: reports: no symptoms reported : reports: no symptoms reported Musculoskeletal: reports: back pain
--- NOTE | 2017-10-21 13:35 | PRG ---
DATE OF SERVICE: 10/21/2017 SUBJECTIVE: Mr. Cruz is resting comfortably, no complaints. PHYSICAL EXAMINATION: VITAL SIGNS: Blood pressure 96/56, pulse 74 regular. LUNGS: Clear. CARDIAC: Normal S1, normal S2. ABDOMEN: Soft, nontender. EXTREMITIES: No edema. ASSESSMENT: 1. Previous atrial fibrillation, now in sinus rhythm. 2. Blood pressure relatively low. 3. Continued gastrointestinal bleeding. PLAN: 1. He is going for studies to try to determine the source of bleeding. 2. In view of relatively low blood pressure, carvedilol has been discontinued.
--- NOTE | 2017-10-21 16:32 | NM ---
NUCLEAR MEDICINE TAGGED RED CELL SCAN: CLINICAL HISTORY: GI bleed, active rectal bleeding. RADIOPHARMACEUTICAL: 28 mCi Technetium 99m tagged RBC IV. FINDINGS: Scintigraphic imaging for 93 minutes was performed. There is abnormal increased scintigraphic activi ty conforming to bowel at the low abdomen which is visible at approximately 30 minutes and increases in intensity in a curvilinear distribution throughout the remaining duration of the exam. IMPRESSION: Abnormal gastrointestinal bleeding scan. There is abnormal scintigraphic activity conforming to roro l within the low abdomen compatible with an active bleed. Given clinical history of bright red blood per rectum, this does favor activity within the region of the sigmoid colon. Correlate clinically i n this regard. POS: BRIJESH
[2017-10-21 18:06] LABS: Hemoglobin 7.4 g/dL (14.0-18.0)
[2017-10-21] MEDS: HumaLOG 300 UNITS/3 ML VIAL SC PRN (21:40)
[2017-10-21] MEDS: Atorvastatin Calcium 40 MG TAB PO SCH (21:41)
[2017-10-21 22:06] LABS: Hemoglobin 7.5 g/dL (14.0-18.0)
[2017-10-22] MEDS: Levothyroxine 175 MCG TAB PO SCH (05:41)
[2017-10-22] MEDS: Sodium Chloride 0.9% 1,000 ML IV SCH ×3 (05:41→22:13)
[2017-10-22] MEDS: Budesonide 0.5 MG/2 ML NEB INH SCH ×2 (07:51→18:29)
[2017-10-22] MEDS: Digoxin 0.125 MG TAB PO SCH (08:48)
[2017-10-22] MEDS: Saccharomyces boulardii 250 MG CAP PO SCH (08:49)
[2017-10-22] MEDS: Ferrous Sulfate 325 MG TAB PO SCH (08:49)
[2017-10-22] MEDS: Gabapentin 300 MG CAP PO SCH ×3 (08:49→22:29)
[2017-10-22] MEDS: Potassium Chloride 20 MEQ TAB PO SCH (08:49)
[2017-10-22] MEDS: Insulin Glargine 10 UNITS in Pre-Filled Syringe 1 EACH SC SCH ×2 (08:50→22:29)
[2017-10-22] MEDS: DULoxetine 30 MG CAP PO SCH (08:50)
[2017-10-22 09:34] LABS: #Eosinphils 0.1 thou/uL (0.0-0.7); #Lymphocytes 1.2 thou/uL (1.20-3.40); #Monocytes 0.8 thou/uL (0.11-0.59); #Neutrophils 8.4 thou/uL (1.40-6.50); %Basophils 0.1 % (0.0-1.0); %Eosinophils 0.6 % (0.0-10.0); %Lymphocytes 11.3 % (21.0-51.0); %Monocytes 7.2 % (0.0-10.0); %Neutrophils 80.9 % (42.0-75.0); Hemoglobin 8.1 g/dL (14.0-18.0); Mean Corpuscular Hemoglobin 31.2 pg (27.0-31.0); Mean Corpuscular Volume 91.7 fL (78.0-98.0); Mean Platelet Volume 7.9 fL (7.4-10.4); Platelet Count 188 thou/uL (130-400); RBC Distribution Width 15.9 % (11.5-14.5); Red Blood Cell (RBC) Count 2.59 mill/uL (4.70-6.10); White Blood Cell (WBC) Count 10.4 thou/uL (4.8-10.8)
[2017-10-22 09:48] LABS: ALT (SGPT) 48 U/L (8-55); AST (SGOT) 58 U/L (5-34); Alkaline Phosphatase 528 U/L (40-150); Anion Gap 9 mmol/L (10-20); BUN (Urea Nitrogen) 24 mg/dL (8.4-25.7); Bilirubin, Total 1.4 mg/dL (0.2-1.2); Calc. Creatinine Clearance 83 mL/min (70-130); Calcium 7.1 mg/dL (7.8-10.44); Carbon Dioxide 22 mmol/L (23-31); Chloride 105 mmol/L (98-107); Estimated GFR-MDRD 73; Globulin 3.2 g/dL (2.4-3.5); Glucose 254 mg/dL (83-110); Magnesium 1.9 mg/dL (1.6-2.6); Potassium 3.5 mmol/L (3.5-5.1); Protein, Total 5.2 g/dL (5.8-8.1); Sodium 132 mmol/L (136-145)
--- NOTE | 2017-10-22 11:12 | CON ---
DATE OF CONSULTATION: 10/21/2017 REFERRING PHYSICIAN: Dr. Jone Nolan, [facility] hospitalist. REASON FOR CONSULTATION: Hematochezia. HISTORY OF PRESENT ILLNESS: Mr. John Cruz is a 72-year-old, male, who is known to me fr om before. The patient was seen by me in 01/2017 because of dysphagia. An EGD done, which revealed no pathology. The patient has had a previous colonoscopy at the [facility] in [place] in 2014. The patient was hospitalized with acute MD in July of 2017. He gives history of some hematemesis and p assing dark stool. Because of recent myocardial infarction, he does not have any endoscopic studies. He did pretty well for the last admission. He was seen by Dr. Tru Rose because of his coronar y artery disease. Because of these, he is not really a candidate. He was also seen by different con sultants during the last admission. At this time, he was seen by Cardiology, Cardiovascular surgeon and also by Dr. Monte. The patient was having hematochezia late last night. The bleeding was persi stent and was passing a large amount of blood clots. Blood count did drop down from 9.7 to 7.9 and h as been transfused 2 units of packed red blood cells. He has been passing clots throughout the day t luis eduardo. He also complains of lower abdominal pain across the abdomen. There is no nausea, vomiting, n o fever. The patient was sent for stat radionuclear scan. The GI bleeding scan does show bleeding t o be within low abdomen. He was also found to have, I believe all of his fecal impaction. He is try ing to restrain and passing hard stool. A rectal exam done by me at bedside did reveal large amount of hard stool, which I was able to break it up. There is no fresh blood seen, but mostly seen dark b lood. He did pass some old blood clots in the rectal exam. Blood count is hanging around 7.9 and 7. 7 . The patient had a colonoscopy in the [facility] in [place] where he was found, he is not really sure he has any diverticulosis. No other relevant history. ALLERGIES: None. SOCIAL HISTORY: The patient is a chronic smoker. He still smokes a packet of cigarettes per day. P ositive alcohol abuse until two years ago. He quit drinking two years ago. MEDICAL ILLNESSES: 1. Hypertension. 2. Type 2 diabetes mellitus. 3. Hyperlipidemia. 4. Chronic acid reflux. 5. Peripheral neuropathy. 6. Arthritis. 7. Depression. 8. Chronic obstructive pulmonary disease. 9. Status post cholecystectomy. 10. Status post right big toe amputation. 11. Status post left foot amputation. 12. History of heart murmur. 13. Recent non-ST MD in 07/2017. 14. History of atrial fibrillation with fast ventricular rate. SURGERIES: 1. Cholecystectomy. 2. EGD. 3. Colonoscopy. PHYSICAL EXAMINATION: GENERAL: The patient appears thin-built and fragile looking. He is awake, alert, and communicative. He is not short of breath. He appears very comfortable lying down flat. He is in no distress. VITAL SIGNS: Stable at the present time. Pulse rate of 98, blood pressure is around 96/70. HEENT: Conjunctivae clear. NECK: Supple. No adenitis or thyromegaly. CARDIOVASCULAR SYSTEM: First and second heart sounds normal. LUNGS: Clear to auscultation. ABDOMEN: Soft to palpate. Abdomen is nondistended. Abdomen is minimally tender over the epigastric area. He is also tender over the left lower quadrant. There is no rebound or guarding. No organom egaly or masses. EXTREMITIES: . CLINICAL IMPRESSION: Hematochezia, most likely possibility of bleeding from diverticular disease. I t is also possible that he has had fecal impaction causing stercoral ulcer with bleeding ulcer. RECOMMENDATIONS: 1. Transfuse as needed. 2. . There is really high risk and I really do not feel comfortable doing a colonoscopy; allen chavez, if he continues to bleed, I believe we have no option except take the risk and proceed with that . I will try and talk with inspector line tomorrow and decide where to go from here. In the meantime, we will start on a clear liquid diet. 3. Serial H&H. 4. Started on lactulose so he can be adequately prepped in case he needs a colonoscopy.
--- NOTE | 2017-10-22 12:32 | PDOC.PN ---
- Subjective Encounter Start Date: 10/22/17 Encounter Start Time: 09:00 -: old records requested/rev Patient seen and examined for mrsa sepsis. he still has back pain, No overnight events - Objective Resuscitation Status: Resuscitation Status DNR:Do Not Resuscitate MAR Reviewed: Yes Vital Signs & Weight: Vital Signs (12 hours) Temp Pulse Pulse Resp BP BP BP 10/22/17 11:34 97.6 F 75 16 154/85 H 10/22/17 08:48 75 10/22/17 08:00 97.7 F 75 18 10/22/17 07:36 97.7 F 75 18 136/48 L 10/22/17 07:31 10/22/17 07:30 69 15 10/22/17 05:50 98.2 F 72 16 136/68 10/22/17 04:12 97.4 F L 71 17 125/58 L 10/22/17 02:55 98.0 F 71 17 130/56 L 10/22/17 02:37 98.3 F 72 16 111/53 L Pulse Ox 10/22/17 11:34 97 10/22/17 08:48 10/22/17 08:00 10/22/17 07:36 94 L 10/22/17 07:31 96 10/22/17 07:30 96 10/22/17 05:50 10/22/17 04:12 94 L 10/22/17 02:55 10/22/17 02:37 Weight Admit Weight 177 lb 0.499 oz Weight 195 lb 11.2 oz Most Recent Monitor Data Heart Rate from ECG 107 NIBP 110/67 NIBP BP-Mean 83 Respiration from ECG 17 SpO2 97 I&O: 10/21/17 10/22/17 10/23/17 06:59 06:59 06:59 Intake Total 3819.2 1896 250 Output Total 2225 1000 Balance 1594.2 896 250 Result Diagrams: 10/22/17 09:15 10/22/17 09:15 Additional Labs: Accuchecks 10/22/17 10/22/17 10/21/17 10:55 06:09 20:17 POC Glucose 248 H 229 H 270 H 10/21/17 16:46 POC Glucose 269 H EKG Reviewed by me: Yes (afib) Phys Exam - Physical Examination Constitutional: NAD HEENT: PERRLA, moist MMs, sclera anicteric Neck: no JVD, supple Respiratory: no wheezing, no rales, no rhonchi Cardiovascular: no rub, irregular SM+ Gastrointestinal: soft, non-tender, no distention, positive bowel sounds Musculoskeletal: no edema, pulses present Neurological: moves all 4 limbs Lymphatic: no nodes Psychiatric: normal affect Skin: no rash, normal turgor Dx/Plan (1) Acute kidney failure Status: Resolved (2) Atrial fibrillation with rapid ventricular response Code(s): I48.91 - UNSPECIFIED ATRIAL FIBRILLATION Status: Acute Comment: on amiodarone PO now with Digoxin and coreg.rate controlled (3) Demand ischemia of myocardium Code(s): I24.8 - OTHER FORMS OF ACUTE ISCHEMIC HEART DISEASE Status: Acute (4) Hematuria, gross Status: Acute Comment: s/p Viramontes by urology w dorsal slit (5) Hyponatremia Code(s): E87.1 - HYPO-OSMOLALITY AND HYPONATREMIA Status: Acute (6) Lactic acidosis Code(s): E87.2 - ACIDOSIS Status: Resolved (7) Sepsis with acute organ dysfunction Code(s): A41.9 - SEPSIS, UNSPECIFIED ORGANISM; R65.20 - SEVERE SEPSIS WITHOUT SEPTIC SHOCK Status: Acute (8) Splenic infarct Code(s): D73.5 - INFARCTION OF SPLEEN Status: Acute Comment: ? septic embolization (9) 3-vessel CAD Status: Chronic (10) Alcoholic cirrhosis of liver Code(s): K70.30 - ALCOHOLIC CIRRHOSIS OF LIVER WITHOUT ASCITES Status: Chronic (11) Anemia, macrocytic Code(s): D53.9 - NUTRITIONAL ANEMIA, UNSPECIFIED Status: Chronic (12) Anxiety and depression Code(s): F41.9 - ANXIETY DISORDER, UNSPECIFIED; F32.9 - MAJOR DEPRESSIVE DISORDER, SINGLE EPISODE, UNSPECIFIED Status: Chronic (13) COPD (chronic obstructive pulmonary disease) Status: Chronic (14) Chronic combined systolic and diastolic CHF (congestive heart failure) Code(s): I50.42 - CHRONIC COMBINED SYSTOLIC AND DIASTOLIC HRT FAIL Status: Chronic Comment: Compensated for now (15) DM type 2 (diabetes mellitus, type 2) Status: Chronic Qualifiers: Diabetes mellitus snf insulin use: with termination clerk use Diabetes mellitus complication status: without complication Qualified Code(s): E11.9 - Type 2 diabetes mellitus without complications; Z79.4 - [facility]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; Z79.4 - [facility]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; Z79.4 - buttermaker helper ( 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; Z79.4 - buttermaker helper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 (16) Dyslipidemia Code(s): E78.5 - HYPERLIPIDEMIA, UNSPECIFIED Status: Chronic (17) GERD (gastroesophageal reflux disease) Code(s): K21.9 - GASTRO-ESOPHAGEAL REFLUX DISEASE WITHOUT ESOPHAGITIS Status: Chronic (18) HTN (hypertension) Code(s): I10 - ESSENTIAL (PRIMARY) HYPERTENSION Status: Chronic (19) Hypoalbuminemia due to protein-calorie malnutrition Code(s): E46 - UNSPECIFIED PROTEIN-CALORIE MALNUTRITION Status: Chronic (20) Hypothyroidism Code(s): E03.9 - HYPOTHYROIDISM, UNSPECIFIED Status: Chronic (21) PVD (peripheral vascular disease) Code(s): I73.9 - PERIPHERAL VASCULAR DISEASE, UNSPECIFIED Status: Chronic (22) Protein-calorie malnutrition, moderate Code(s): E44.0 - MODERATE PROTEIN-CALORIE MALNUTRITION Status: Chronic (23) Thrombocytopenia Code(s): D69.6 - THROMBOCYTOPENIA, UNSPECIFIED Status: Chronic (24) Tobacco abuse Code(s): Z72.0 - TOBACCO USE Status: Chronic (25) Aortic stenosis Code(s): I35.0 - NONRHEUMATIC AORTIC (VALVE) STENOSIS Status: Chronic Comment: severe (26) Bacteremia due to methicillin resistant Staphylococcus aureus Code(s): R78.81 - BACTEREMIA Status: Acute Comment: Suspect Infective endocarditis and /or Diskitis (27) Gangrene of toe of right foot Code(s): I96 - GANGRENE, NOT ELSEWHERE CLASSIFIED Status: Acute (28) Cavitary lesion of lung Code(s): J98.4 - OTHER DISORDERS OF LUNG Status: Chronic Comment: Op work up done at [place] (29) UTI (urinary tract infection) Status: Acute (30) Hypokalemia Code(s): E87.6 - HYPOKALEMIA Status: Acute (31) Osteomyelitis of toe of right foot Code(s): M86.9 - OSTEOMYELITIS, UNSPECIFIED Status: Acute (32) Acute GI bleeding Code(s): K92.2 - GASTROINTESTINAL HEMORRHAGE, UNSPECIFIED Status: Acute (33) Anemia due to acute blood loss Code(s): D62 - ACUTE POSTHEMORRHAGIC ANEMIA Status: Acute (34) Hypomagnesemia Code(s): E83.42 - HYPOMAGNESEMIA Status: Acute (35) Hypotension Status: Acute - Plan cont current plan of care, continue antibiotics, respiratory therapy * 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 Review of Systems - Review of Systems Constitutional: negative: fever, chills, sweats, weakness, malaise, other Eyes: negative: Pain, Vision Change, Conjunctivae Inflammation, Eyelid Inflammation, Redness, Other ENT: negative: Ear Pain, Ear Discharge, Nose Pain, Nose Discharge, Nose Congestion, Mouth Pain, Mouth Swelling, Throat Pain, Throat Swelling, Other Respiratory: negative: Cough, Dry, Shortness of Breath, Hemoptysis, SOB with Excertion, Pleuritic Pain, Sputum, Wheezing Cardiovascular: negative: chest pain, palpitations, orthopnea, paroxysmal nocturnal dyspnea, edema, light headedness, other Gastrointestinal: negative: Nausea, Vomiting, Abdominal Pain, Diarrhea, Constipation, Melena, Hematochezia, Other Genitourinary: negative: Dysuria, Frequency, Incontinence, Hematuria, Retention , Other Musculoskeletal: Neck Pain, Back Pain. negative: Shoulder Pain, Arm Pain, Hand Pain, Leg Pain, Foot Pain, Other - Medications/Allergies Allergies/Adverse Reactions: Allergies Allergy/AdvReac Type Severity Reaction Status Date / Time No Known Allergies Allergy Unverified 07/23/17 10:34 Medications: Current Medications Acetaminophen (Tylenol) 650 mg PO Q4H PRN PRN Reason: Headache/Fever or Pain Last Admin: 10/18/17 20:52 Dose: 650 mg Al Hydroxide/Mg Hydroxide (Maalox) 30 ml PO Q6H PRN PRN Reason: Heartburn or Indigestion Albuterol/Ipratropium (Duoneb) 3 ml NEB [id number] [facility] Last Admin: 10/22/17 07:30 Dose: 3 ml Artificial Tears (Tears Naturale) 0 drop EA EYE PRN PRN PRN Reason: Dry Eyes Atorvastatin Calcium (Lipitor) 40 mg PO HS [facility] Last Admin: 10/21/17 21:41 Dose: 40 mg Budesonide (Pulmicort Neb Solution) 0.5 mg INH BID-RT [facility] Last Admin: 10/22/17 07:51 Dose: 0.5 mg Dextrose/Water (Dextrose 50%) 25 gm SLOW IVP PRN PRN PRN Reason: Hypoglycemia Digoxin (Lanoxin) 0.125 mg PO QAM [facility] Last Admin: 10/22/17 08:48 Dose: 0.125 mg Duloxetine HCl (Cymbalta) 30 mg PO DAILY [facility] Last Admin: 10/22/17 08:50 Dose: 30 mg Ferrous Sulfate (Feosol) 325 mg PO DAILY [facility] Last Admin: 10/22/17 08:49 Dose: 325 mg Gabapentin (Neurontin) 300 mg PO TID [facility] Last Admin: 10/22/17 08:49 Dose: 300 mg Glucagon (Glucagon) 1 mg IM PRN PRN PRN Reason: Hypoglycemia Guaifenesin (Robitussin Sf) 200 mg PO Q4H PRN PRN Reason: Cough Hydralazine HCl (Apresoline) 10 mg SLOW IVP Q4H PRN PRN Reason: Systolic BP > 180 Hydromorphone HCl (Dilaudid Cadd) 0 mg IV INF PRN PRN Reason: Pain Last Admin: 10/20/17 09:34 Dose: 10 mg Dextrose/Water (D5w) 1,000 mls @ 0 mls/hr IV .Q0M PRN; As Directed PRN Reason: Hypoglycemia Insulin Glargine 10 units/ (Miscellaneous Medication) 0.1 mls @ 0 mls/hr SC BID [facility] Last Admin: 10/22/17 08:50 Dose: 0.1 mls Vancomycin HCl 2 gm/ Sodium (Chloride) 500 mls @ 250 mls/hr IVPB 0300 [facility] Last Admin: 10/22/17 02:58 Dose: 500 mls Sodium Chloride (Normal Saline 0.9%) 1,000 mls @ 125 mls/hr IV .Q8H [facility] Last Admin: 10/22/17 05:41 Dose: Not Given Insulin Human Lispro (Humalog) 0 units SC .MODERATE SLIDING SC PRN PRN Reason: Moderate Correctional Scale Last Admin: 10/20/17 16:54 Dose: 4 unit Insulin Human Lispro (Humalog) 0 units SC .BEDTIME SLIDING SC PRN PRN Reason: Bedtime Correctional Scale Last Admin: 10/21/17 21:40 Dose: 3 unit Labetalol HCl (Normodyne) 20 mg SLOW IVP Q4H PRN PRN Reason: Systolic BP > 180 Last Admin: 10/18/17 06:33 Dose: 20 mg Lactulose (Lactulose) 30 gm PO TID [facility] Last Admin: 10/22/17 08:51 Dose: 30 gm Levothyroxine Sodium (Synthroid) 175 mcg PO 0600 [facility] Last Admin: 10/22/17 05:41 Dose: 175 mcg Loperamide HCl (Imodium) 2 mg PO PRN PRN PRN Reason: Diarrhea/Loose Stools Loratadine (Claritin) 10 mg PO DAILYPRN PRN PRN Reason: Sinus Symptoms Magnesium Hydroxide (Milk Of Magnesium) 30 ml PO DAILYPRN PRN PRN Reason: Constipation Last Admin: 10/20/17 10:40 Dose: 30 ml Mineral Oil/White Petrolatum (Eucerin Cream) 0 gm TOP BIDPRN PRN PRN Reason: Dry Skin Miscellaneous Medication (Pharmacy To Dose) 1 each IVPB PRN PRN PRN Reason: Pharmacy to dose Nitroglycerin (Nitrostat) 0.4 mg SL Q5MIN PRN PRN Reason: Chest Pain Ondansetron HCl (Zofran Odt) 4 mg PO Q6H PRN PRN Reason: Nausea/Vomiting Ondansetron HCl (Zofran) 4 mg IVP Q6H PRN PRN Reason: Nausea/Vomiting Phenol (Chloraseptic Bono 180 Ml Bot) 0 ml PO PRN PRN PRN Reason: Sore Throat Phenyleph/Shark Oil/[place] Butter (Preparation H) 1 supp MI QIDPRN PRN PRN Reason: Hemorrhoids Last Admin: 10/21/17 03:05 Dose: 1 supp Potassium Chloride (K-Dur) 20 meq PO QAM-WM [facility] Last Admin: 10/22/17 08:49 Dose: 20 meq Saccharomyces Boulardii (Florastor) 250 mg PO DAILY [facility] Last Admin: 10/22/17 08:49 Dose: 250 mg Senna (Senokot) 2 tab PO HSPRN PRN PRN Reason: Constipation Last Admin: 10/20/17 20:49 Dose: 2 tab Sodium Chloride ([place] Nasal Bono 0.65%) 0 ml EA NARE QIDPRN PRN PRN Reason: Nasal Congestion Sodium Chloride (Flush - Normal Saline) 10 ml IVF Q12HR [facility] Last Admin: 10/22/17 08:52 Dose: 10 ml Sodium Chloride (Flush - Normal Saline) 10 ml IVF PRN PRN PRN Reason: Saline Flush Thiamine HCl (Thiamine) 100 mg PO DAILY [facility] Last Admin: 10/22/17 08:49 Dose: 100 mg Trazodone HCl (Desyrel) 100 mg PO HS PRN PRN Reason: Insomnia
--- NOTE | 2017-10-22 13:24 | PRG ---
DATE OF SERVICE: 10/22/2017 Mr. Cruz is resting comfortably, no complaints. He does not report chest pain or pressure. PHYSICAL EXAMINATION: VITAL SIGNS: Blood pressure 154/85, pulse 74 regular. LUNGS: Clear. CARDIAC: There is aortic stenosis murmur as before. ABDOMEN: Soft, nontender. EXTREMITIES: Mild edema. Blood cultures are all negative. ASSESSMENT: 1. Aortic stenosis. 2. Paroxysmal atrial fibrillation, status post cardioversion. 3. Hyponatremia, mild. 4. Liver function tests have improved. AST is down to 58. The ALT is 48. PLAN: 1. I would resume the amiodarone. Otherwise, there would be very high risk or chance he would go ba ck into atrial fibrillation. 2. Other medicines unchanged.
--- NOTE | 2017-10-22 15:36 | PRG ---
DATE OF SERVICE: 10/22/2017 OBJECTIVE: VITAL SIGNS: He is afebrile, heart rate 71, respiratory rate 15, oximetry is 96 on room air, and blo od pressure 154/85. LUNGS: Clear. HEART: Regular rhythm. ABDOMEN: Soft. He says he has had no more bloody bowel movements. Hemoglobin stable at 8.1, platelets 188,000. Electrolytes are unremarkable. Glucose is still elevat ed, alkaline phosphatase is elevated at 528, phosphatase from bone. IMPRESSION: 1. Methicillin-resistant Staphylococcus aureus bacteremia, presumed endocarditis. 2. Back pain ? paraspinous abscess. 3. Atrial fibrillation, status post cardioversion. 4. Deconditioning. 5. Moderate chronic obstructive pulmonary disease. 6. History of pulmonary nodules that have been followed at the [place]. 7. Coronary artery disease. He was not felt to be an operative candidate earlier this year because of his multiple medical problems and comorbidities. 8. Acute gastrointestinal blood loss. 9. Status post multiple lower extremity amputations. PLAN: Continue with pain management and supportive care as well as antimicrobial therapy per Infecti ous Disease recommendations.
[2017-10-22] MEDS: HYDROmorphone 10 mg/100 ml CADD IV PRN (22:09)
[2017-10-22] MEDS: Atorvastatin Calcium 40 MG TAB PO SCH (22:29)
[2017-10-22] MEDS: Amiodarone 200 MG TAB PO SCH (22:29)
[2017-10-22] MEDS: HumaLOG 300 UNITS/3 ML VIAL SC PRN (22:30)
--- NOTE | 2017-10-23 03:21 | PRG ---
DATE OF SERVICE: 10/22/2017 SUBJECTIVE: Mr. John Cruz is a 72-year-old male with multiple medical problems includin g coronary artery disease, COPD, peripheral vascular disease. The patient was found to have hematoch ezia late Saturday night into Saturday morning. The patient has been transfused. He received 1 unit of packed RBCs last night. He has passed some old blood, there were no fresh bleeding seen. He is on l actulose to try to empty his bowel. The patient had no abdominal pain, no nausea, no vomiting. He h as not had any bright red blood in the stool. He is passing somewhat of a dark stool. The blood cou nt has been fairly stable. This morning, blood count shows hemoglobin 8.1, hematocrit 23.7; it was y 7.4 and 21.6. PHYSICAL EXAMINATION: GENERAL: He is awake, alert, and communicative. He is in no distress. VITAL SIGNS: Afebrile, pulse is 75, blood pressure is 154/85. CARDIOVASCULAR SYSTEM: First and second heart sounds normal. He has a systolic murmur. LUNGS: Clear to auscultation. ABDOMEN: Abdomen is soft. Abdomen is nontender. There is no organomegaly or masses. Bowel sounds are normal. CLINICAL IMPRESSION: Rectal bleeding, possibilities bleeding from diverticular disease, ischemic col itis, possibly stercoral ulcer with bleeding. The patient . He has had a recent myocardial inf arction 2 months ago and he also has had atrial fibrillation with fast ventricular rate. ventr icular rate is controlled. It appears he has some bleeding at the present time. RECOMMENDATIONS: 1. Continue clear liquid diet for 24 hours. 2. Continue lactulose. 3. Serial H and H and transfuse p.r.n. 4. If he has no recurrence of bleeding, consider advancing diet to a heart healthy diet tomorrow.
[2017-10-23] MEDS: Sodium Chloride 0.9% 1,000 ML IV SCH ×3 (06:04→20:10)
[2017-10-23] MEDS: Levothyroxine 175 MCG TAB PO SCH (06:16)
[2017-10-23] MEDS: Budesonide 0.5 MG/2 ML NEB INH SCH ×2 (06:26→18:36)
[2017-10-23] MEDS: Saccharomyces boulardii 250 MG CAP PO SCH (08:40)
[2017-10-23] MEDS: Gabapentin 300 MG CAP PO SCH ×3 (08:40→20:13)
[2017-10-23] MEDS: Ferrous Sulfate 325 MG TAB PO SCH (08:40)
[2017-10-23] MEDS: DULoxetine 30 MG CAP PO SCH (08:41)
[2017-10-23] MEDS: Potassium Chloride 20 MEQ TAB PO SCH (08:41)
[2017-10-23] MEDS: Digoxin 0.125 MG TAB PO SCH (08:41)
[2017-10-23] MEDS: Amiodarone 200 MG TAB PO SCH ×2 (08:42→20:13)
[2017-10-23] MEDS: Insulin Glargine 10 UNITS in Pre-Filled Syringe 1 EACH SC SCH (08:44)
[2017-10-23 09:34] LABS: #Eosinphils 0.1 thou/uL (0.0-0.7); #Lymphocytes 1.2 thou/uL (1.20-3.40); #Monocytes 0.5 thou/uL (0.11-0.59); %Basophils 0.1 % (0.0-1.0); %Eosinophils 0.6 % (0.0-10.0); %Lymphocytes 13.7 % (21.0-51.0); %Neutrophils 79.6 % (42.0-75.0); Hemoglobin 7.8 g/dL (14.0-18.0); Mean Corpuscular HGB CONC 33.9 g/dL (32.0-36.0); Mean Corpuscular Hemoglobin 31.2 pg (27.0-31.0); Mean Corpuscular Volume 91.8 fL (78.0-98.0); Mean Platelet Volume 7.1 fL (7.4-10.4); Platelet Count 191 thou/uL (130-400); RBC Distribution Width 16.3 % (11.5-14.5); Red Blood Cell (RBC) Count 2.49 mill/uL (4.70-6.10); White Blood Cell (WBC) Count 8.7 thou/uL (4.8-10.8)
[2017-10-23 09:54] LABS: Anion Gap 8 mmol/L (10-20); BUN (Urea Nitrogen) 15 mg/dL (8.4-25.7); Calc. Creatinine Clearance 99 mL/min (70-130); Calcium 7.1 mg/dL (7.8-10.44); Carbon Dioxide 23 mmol/L (23-31); Chloride 106 mmol/L (98-107); Estimated GFR-MDRD 90; Glucose 159 mg/dL (83-110); Potassium 3.4 mmol/L (3.5-5.1); Sodium 134 mmol/L (136-145)
[2017-10-23] MEDS: Insulin Glargine 15 UNITS in Pre-Filled Syringe 1 EACH SC SCH ×2 (10:06→20:14)
[2017-10-23] MEDS ORDERED: HYDROmorphone 10 mg/100 ml CADD IV PRN (10:23)
--- NOTE | 2017-10-23 10:25 | PDOC.PN ---
- Subjective Encounter Start Date: 10/23/17 Encounter Start Time: 09:40 Patient seen and examined for sepsis. has back pain, had diarrhoea last night, No overnight events - Objective Resuscitation Status: Resuscitation Status DNR:Do Not Resuscitate MAR Reviewed: Yes Vital Signs & Weight: Vital Signs (12 hours) Temp Pulse Resp BP Pulse Ox 10/23/17 08:41 73 10/23/17 08:01 97.5 F L 72 20 100 10/23/17 07:25 97.5 F L 72 20 160/58 H 97 10/23/17 06:24 68 16 97 10/23/17 03:51 97.9 F 70 18 159/70 H 97 10/23/17 00:26 71 16 98 10/22/17 23:42 97.6 F 68 16 157/65 H 96 Weight Admit Weight 177 lb 0.499 oz Weight 194 lb 14.4 oz Most Recent Monitor Data Heart Rate from ECG 107 NIBP 110/67 NIBP BP-Mean 83 Respiration from ECG 17 SpO2 97 I&O: 10/22/17 10/23/17 10/24/17 06:59 06:59 06:59 Intake Total 1896 3933 Output Total 1000 1000 Balance 896 2933 Result Diagrams: 10/23/17 09:29 10/23/17 09:29 Additional Labs: Accuchecks 10/23/17 10/22/17 10/22/17 05:39 20:14 17:56 POC Glucose 172 H 273 H 231 H 10/22/17 10:55 POC Glucose 248 H EKG Reviewed by me: Yes (nsr) Phys Exam - Physical Examination Constitutional: NAD HEENT: PERRLA, moist MMs, sclera anicteric Neck: no JVD, supple Respiratory: no wheezing, no rales, no rhonchi Cardiovascular: RRR, no rub SM+ Gastrointestinal: soft, no distention, positive bowel sounds diffuse soreness Musculoskeletal: no edema, pulses present Neurological: moves all 4 limbs Lymphatic: no nodes Psychiatric: normal affect Skin: no rash, normal turgor Dx/Plan (1) Acute kidney failure Status: Resolved (2) Atrial fibrillation with rapid ventricular response Code(s): I48.91 - UNSPECIFIED ATRIAL FIBRILLATION Status: Acute Comment: on amiodarone PO now with Digoxin and coreg.rate controlled (3) Demand ischemia of myocardium Code(s): I24.8 - OTHER FORMS OF ACUTE ISCHEMIC HEART DISEASE Status: Acute (4) Hematuria, gross Status: Acute Comment: s/p Viramontes by urology w dorsal slit (5) Hyponatremia Code(s): E87.1 - HYPO-OSMOLALITY AND HYPONATREMIA Status: Acute (6) Lactic acidosis Code(s): E87.2 - ACIDOSIS Status: Resolved (7) Sepsis with acute organ dysfunction Code(s): A41.9 - SEPSIS, UNSPECIFIED ORGANISM; R65.20 - SEVERE SEPSIS WITHOUT SEPTIC SHOCK Status: Acute (8) Splenic infarct Code(s): D73.5 - INFARCTION OF SPLEEN Status: Acute Comment: ? septic embolization (9) 3-vessel CAD Status: Chronic (10) Alcoholic cirrhosis of liver Code(s): K70.30 - ALCOHOLIC CIRRHOSIS OF LIVER WITHOUT ASCITES Status: Chronic (11) Anemia, macrocytic Code(s): D53.9 - NUTRITIONAL ANEMIA, UNSPECIFIED Status: Chronic (12) Anxiety and depression Code(s): F41.9 - ANXIETY DISORDER, UNSPECIFIED; F32.9 - MAJOR DEPRESSIVE DISORDER, SINGLE EPISODE, UNSPECIFIED Status: Chronic (13) COPD (chronic obstructive pulmonary disease) Status: Chronic (14) Chronic combined systolic and diastolic CHF (congestive heart failure) Code(s): I50.42 - CHRONIC COMBINED SYSTOLIC AND DIASTOLIC HRT FAIL Status: Chronic Comment: Compensated for now (15) DM type 2 (diabetes mellitus, type 2) Status: Chronic Qualifiers: Diabetes mellitus prison insulin use: with prison use Diabetes mellitus complication status: without complication Qualified Code(s): E11.9 - Type 2 diabetes mellitus without complications; 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.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; Z79.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; Z79.4 - grain farmer ( 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; Z79.4 - intermediate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 (16) Dyslipidemia Code(s): E78.5 - HYPERLIPIDEMIA, UNSPECIFIED Status: Chronic (17) GERD (gastroesophageal reflux disease) Code(s): K21.9 - GASTRO-ESOPHAGEAL REFLUX DISEASE WITHOUT ESOPHAGITIS Status: Chronic (18) HTN (hypertension) Code(s): I10 - ESSENTIAL (PRIMARY) HYPERTENSION Status: Chronic (19) Hypoalbuminemia due to protein-calorie malnutrition Code(s): E46 - UNSPECIFIED PROTEIN-CALORIE MALNUTRITION Status: Chronic (20) Hypothyroidism Code(s): E03.9 - HYPOTHYROIDISM, UNSPECIFIED Status: Chronic (21) PVD (peripheral vascular disease) Code(s): I73.9 - PERIPHERAL VASCULAR DISEASE, UNSPECIFIED Status: Chronic (22) Protein-calorie malnutrition, moderate Code(s): E44.0 - MODERATE PROTEIN-CALORIE MALNUTRITION Status: Chronic (23) Thrombocytopenia Code(s): D69.6 - THROMBOCYTOPENIA, UNSPECIFIED Status: Chronic (24) Tobacco abuse Code(s): Z72.0 - TOBACCO USE Status: Chronic (25) Aortic stenosis Code(s): I35.0 - NONRHEUMATIC AORTIC (VALVE) STENOSIS Status: Chronic Comment: severe (26) Bacteremia due to methicillin resistant Staphylococcus aureus Code(s): R78.81 - BACTEREMIA Status: Acute Comment: Suspect Infective endocarditis and /or Diskitis (27) Gangrene of toe of right foot Code(s): I96 - GANGRENE, NOT ELSEWHERE CLASSIFIED Status: Acute (28) Cavitary lesion of lung Code(s): J98.4 - OTHER DISORDERS OF LUNG Status: Chronic Comment: Op work up done [place] (29) UTI (urinary tract infection) Status: Acute (30) Hypokalemia Code(s): E87.6 - HYPOKALEMIA Status: Acute (31) Osteomyelitis of toe of right foot Code(s): M86.9 - OSTEOMYELITIS, UNSPECIFIED Status: Acute (32) Acute GI bleeding Code(s): K92.2 - GASTROINTESTINAL HEMORRHAGE, UNSPECIFIED Status: Acute (33) Anemia due to acute blood loss Code(s): D62 - ACUTE POSTHEMORRHAGIC ANEMIA Status: Acute (34) Hypomagnesemia Code(s): E83.42 - HYPOMAGNESEMIA Status: Acute (35) Hypotension Status: Acute - Plan cont current plan of care, continue antibiotics, PT/OT, social services technician * monitor H & H * GI following * continue vancomycin * will treat as if IE * will need placement when stable * medication reviewed as below * symptomatic treatment. * vest presser for pain control Review of Systems - Review of Systems Eyes: negative: Pain, Vision Change, Conjunctivae Inflammation, Eyelid Inflammation, Redness, Other ENT: negative: Ear Pain, Ear Discharge, Nose Pain, Nose Discharge, Nose Congestion, Mouth Pain, Mouth Swelling, Throat Pain, Throat Swelling, Other Respiratory: negative: Cough, Dry, Shortness of Breath, Hemoptysis, SOB with Excertion, Pleuritic Pain, Sputum, Wheezing Cardiovascular: negative: chest pain, palpitations, orthopnea, paroxysmal nocturnal dyspnea, edema, light headedness, other Gastrointestinal: negative: Nausea, Vomiting, Abdominal Pain, Diarrhea, Constipation, Melena, Hematochezia, Other Genitourinary: negative: Dysuria, Frequency, Incontinence, Hematuria, Retention , Other Musculoskeletal: Neck Pain, Back Pain. negative: Shoulder Pain, Arm Pain, Hand Pain, Leg Pain, Foot Pain, Other Skin: negative: Rash, Lesions, Arnoldo, Bruising, Other - Medications/Allergies Allergies/Adverse Reactions: Allergies Allergy/AdvReac Type Severity Reaction Status Date / Time No Known Allergies Allergy Unverified 07/23/17 10:34 Medications: Current Medications Acetaminophen (Tylenol) 650 mg PO Q4H PRN PRN Reason: Headache/Fever or Pain Last Admin: 10/18/17 20:52 Dose: 650 mg Al Hydroxide/Mg Hydroxide (Maalox) 30 ml PO Q6H PRN PRN Reason: Heartburn or Indigestion Albuterol/Ipratropium (Duoneb) 3 ml NEB W3XV-OH [facility] Last Admin: 10/23/17 06:24 Dose: 3 ml Amiodarone HCl (Cordarone) 200 mg PO BID [facility] Last Admin: 10/23/17 08:42 Dose: 200 mg Artificial Tears (Tears Naturale) 0 drop EA EYE PRN PRN PRN Reason: Dry Eyes Atorvastatin Calcium (Lipitor) 40 mg PO HS [facility] Last Admin: 10/22/17 22:29 Dose: 40 mg Budesonide (Pulmicort Neb Solution) 0.5 mg INH BID-RT [facility] Last Admin: 10/23/17 06:26 Dose: 0.5 mg Dextrose/Water (Dextrose 50%) 25 gm SLOW IVP PRN PRN PRN Reason: Hypoglycemia Digoxin (Lanoxin) 0.125 mg PO QAM [facility] Last Admin: 10/23/17 08:41 Dose: 0.125 mg Duloxetine HCl (Cymbalta) 30 mg PO DAILY [facility] Last Admin: 10/23/17 08:41 Dose: 30 mg Ferrous Sulfate (Feosol) 325 mg PO DAILY [facility] Last Admin: 10/23/17 08:40 Dose: 325 mg Gabapentin (Neurontin) 300 mg PO TID [facility] Last Admin: 10/23/17 08:40 Dose: 300 mg Glucagon (Glucagon) 1 mg IM PRN PRN PRN Reason: Hypoglycemia Guaifenesin (Robitussin Sf) 200 mg PO Q4H PRN PRN Reason: Cough Hydralazine HCl (Apresoline) 10 mg SLOW IVP Q4H PRN PRN Reason: Systolic BP > 180 Hydromorphone HCl (Dilaudid Cadd) 0 mg IV INF PRN PRN Reason: Pain Dextrose/Water (D5w) 1,000 mls @ 0 mls/hr IV .Q0M PRN; As Directed PRN Reason: Hypoglycemia Vancomycin HCl 2 gm/ Sodium (Chloride) 500 mls @ 250 mls/hr IVPB 0300 [facility] Last Admin: 10/23/17 03:40 Dose: 500 mls Sodium Chloride (Normal Saline 0.9%) 1,000 mls @ 125 mls/hr IV .Q8H [facility] Last Admin: 10/23/17 06:04 Dose: Not Given Insulin Glargine 15 units/ (Miscellaneous Medication) 0.15 mls @ 0 mls/hr SC HS [facility] Insulin Glargine 15 units/ (Miscellaneous Medication) 0.15 mls @ 0 mls/hr SC QAM [facility] Last Admin: 10/23/17 10:06 Dose: Not Given Insulin Human Lispro (Humalog) 0 units SC .MODERATE SLIDING SC PRN PRN Reason: Moderate Correctional Scale Last Admin: 10/20/17 16:54 Dose: 4 unit Insulin Human Lispro (Humalog) 0 units SC .BEDTIME SLIDING SC PRN PRN Reason: Bedtime Correctional Scale Last Admin: 10/22/17 22:30 Dose: 3 unit Labetalol HCl (Normodyne) 20 mg SLOW IVP Q4H PRN PRN Reason: Systolic BP > 180 Last Admin: 10/18/17 06:33 Dose: 20 mg Lactulose (Lactulose) 20 gm PO DAILYPRN PRN PRN Reason: Constipation Lactulose (Lactulose) 30 gm PO DAILY [facility] Last Admin: 10/23/17 10:08 Dose: Not Given Levothyroxine Sodium (Synthroid) 175 mcg PO 0600 [facility] Last Admin: 10/23/17 06:16 Dose: 175 mcg Loperamide HCl (Imodium) 2 mg PO PRN PRN PRN Reason: Diarrhea/Loose Stools Loratadine (Claritin) 10 mg PO DAILYPRN PRN PRN Reason: Sinus Symptoms Magnesium Hydroxide (Milk Of Magnesium) 30 ml PO DAILYPRN PRN PRN Reason: Constipation Last Admin: 10/20/17 10:40 Dose: 30 ml Mineral Oil/White Petrolatum (Eucerin Cream) 0 gm TOP BIDPRN PRN PRN Reason: Dry Skin Miscellaneous Medication (Pharmacy To Dose) 1 each IVPB PRN PRN PRN Reason: Pharmacy to dose Nitroglycerin (Nitrostat) 0.4 mg SL Q5MIN PRN PRN Reason: Chest Pain Ondansetron HCl (Zofran Odt) 4 mg PO Q6H PRN PRN Reason: Nausea/Vomiting Ondansetron HCl (Zofran) 4 mg IVP Q6H PRN PRN Reason: Nausea/Vomiting Phenol (Chloraseptic [place] 180 Ml Bot) 0 ml PO PRN PRN PRN Reason: Sore Throat Phenyleph/Shark Oil/[place] Butter (Preparation H) [address] QIDPRN PRN PRN Reason: Hemorrhoids Last Admin: 10/21/17 03:05 Dose: 1 supp Potassium Chloride (K-Dur) 20 meq PO QAM-WM [facility] Last Admin: 10/23/17 08:41 Dose: 20 meq Saccharomyces Boulardii (Florastor) 250 mg PO DAILY [facility] Last Admin: 10/23/17 08:40 Dose: 250 mg Senna (Senokot) 2 tab PO HSPRN PRN PRN Reason: Constipation Last Admin: 10/20/17 20:49 Dose: 2 tab Sodium Chloride ([place] Nasal [place] 0.65%) 0 ml EA NARE QIDPRN PRN PRN Reason: Nasal Congestion Sodium Chloride (Flush - Normal Saline) 10 ml IVF Q12HR [facility] Last Admin: 10/23/17 08:44 Dose: 10 ml Sodium Chloride (Flush - Normal Saline) 10 ml IVF PRN PRN PRN Reason: Saline Flush Thiamine HCl (Thiamine) 100 mg PO DAILY [facility] Last Admin: 10/23/17 08:42 Dose: 100 mg Trazodone HCl (Desyrel) 100 mg PO HS PRN PRN Reason: Insomnia
[2017-10-23] MEDS ORDERED: Potassium Chloride 20 MEQ TAB PO SCH (10:45)
[2017-10-23] MEDS: HumaLOG 300 UNITS/3 ML VIAL SC PRN (11:26)
--- NOTE | 2017-10-23 12:09 | PRG ---
DATE OF SERVICE: 10/23/2017 This is a 72-year-old male with multiple medical problems including coronary artery disease , atrial fibrillation, fast ventricular rate, COPD, chronic liver disease and also appears restless. The patient has been having ____ bleeding over the last 48 hours. The bleeding appeared to have sto pped as blood count is pretty stable. Yesterday morning, the hemoglobin was 8.1. Today it is 7.8. The patient had multiple loose stools yesterday. He said he had 7 stools. The stools are mostly old blood, no fresh blood seen. The patient had no stool today. His Lactulose is being withheld. The patient's abdominal pain is markedly improved. No chest pain, no difficulty breathing, etc. PHYSICAL EXAMINATION: GENERAL: He appears very comfortable. He is awake, alert, and communicative. VITAL SIGNS: Afebrile. Pulse is 79, blood pressure 96/54. CARDIOVASCULAR/LUNGS: Within normal limits. ABDOMEN: Soft, mildly tender over the lower abdomen. There is no rebound or guarding. LABORATORY DATA: CBC shows WBC 8700, hemoglobin 7.8, hematocrit 22.9, MCV is 91.8, platelet count is 191,000. Chemistries: Sodium 134, potassium 3.4, chloride 106, bicarbonate 23, BUN is 15, creatini ne is 0.84. CLINICAL IMPRESSION: Hematochezia, most likely diverticular bleeding versus ischemic bowel disease v ersus stercoral ulcer. The patient has stopped bleeding. He has a very high risk for any invasive p rocedure because of recent AR 2 months ago and also other medical issues. Because of the worrisome _ ___ symptoms, ____ have a colonoscopy. The bleeding appears to have stopped. We will observe for e next 24 hours. If he has no recurrence of bleeding, advance diet to a 4 gram sodium diet.
--- NOTE | 2017-10-23 16:07 | PRG ---
DATE OF SERVICE: 10/23/2017 SERVICE: Pulmonary Medicine. INTERVAL HISTORY: The patient is doing fine from a respiratory standpoint. He denies any current ch est pain, nausea, vomiting, fevers, chills, or shortness of breath. There has, otherwise, been no in terval change to his condition. Nursing reports no events. Seven bowel movements were noted over th e past 24 hours. Excellent urine output has been documented. PHYSICAL EXAMINATION: VITAL SIGNS: Afebrile, pulse 65, blood pressure 154/70, respirations 20, saturation 95% on room air. GENERAL: The patient is awake, alert, in no apparent distress. LUNGS: Decent air entry. There is no prolonged expiratory phase or wheezing present. HEART: Normal rate, regular. ABDOMEN: Soft, nontender, nondistended. Bowel sounds are positive. MUSCULOSKELETAL: No cyanosis or clubbing. No pitting in the bilateral lower extremities. NEUROLOGIC: Grossly nonfocal. LABORATORY DATA: WBC 8.7, hemoglobin 7.8, platelets 191,000. Creatinine 0.84. Basic metabolic prof ile is, otherwise, unremarkable. Potassium 3.4. Blood cultures x2 and urine culture are unremarkabl e. ASSESSMENT: 1. Bacteremia secondary to methicillin-resistant Staphylococcus aureus. 2. Severe sepsis. 3. Atrial fibrillation, status post cardioversion. 4. Deconditioning. 5. Chronic obstructive pulmonary disease without current exacerbation. 6. [facility] 7. Coronary artery disease with recent percutaneous coronary intervention. 8. Acute blood loss anemia secondary to gastrointestinal source. 9. Peripheral vascular disease with previous amputations. DISCUSSION AND PLAN: The patient will be continued on supportive care including antibiotics and IV f luid hydration. Potassium will be replaced today. Once an antibiotic course and duration are identi fied, the patient will likely be stable for transition out of the hospital. Pulmonary Critical Care will continue to follow along.
[2017-10-23] MEDS: Atorvastatin Calcium 40 MG TAB PO SCH (20:13)
[2017-10-24 02:22] LABS: Vancomycin, Trough 22.1 ug/mL
[2017-10-24] MEDS: Vancomycin HCl 1.75 GM in Sodium Chloride 0.9% 500 ML IVPB SCH (02:46)
[2017-10-24] MEDS: Levothyroxine 175 MCG TAB PO SCH (05:38)
[2017-10-24] MEDS: Sodium Chloride 0.9% 1,000 ML IV SCH ×3 (05:38→18:02)
[2017-10-24] MEDS: HumaLOG 300 UNITS/3 ML VIAL SC PRN (05:43)
[2017-10-24 07:04] LABS: #Eosinphils 0.1 thou/uL (0.0-0.7); #Lymphocytes 1.1 thou/uL (1.20-3.40); #Monocytes 0.6 thou/uL (0.11-0.59); %Basophils 0.1 % (0.0-1.0); %Eosinophils 1.1 % (0.0-10.0); %Lymphocytes 12.2 % (21.0-51.0); %Monocytes 6.3 % (0.0-10.0); %Neutrophils 80.2 % (42.0-75.0); Mean Corpuscular HGB CONC 33.4 g/dL (32.0-36.0); Mean Corpuscular Hemoglobin 31.3 pg (27.0-31.0); Mean Corpuscular Volume 93.8 fL (78.0-98.0); Mean Platelet Volume 7.1 fL (7.4-10.4); Platelet Count 218 thou/uL (130-400); RBC Distribution Width 16.4 % (11.5-14.5); Red Blood Cell (RBC) Count 2.54 mill/uL (4.70-6.10); White Blood Cell (WBC) Count 8.7 thou/uL (4.8-10.8)
[2017-10-24 07:28] LABS: Anion Gap 7 mmol/L (10-20); BUN (Urea Nitrogen) 10 mg/dL (8.4-25.7); Calc. Creatinine Clearance 104 mL/min (70-130); Calcium 7.3 mg/dL (7.8-10.44); Carbon Dioxide 23 mmol/L (23-31); Chloride 106 mmol/L (98-107); Estimated GFR-MDRD Greater than 90; Glucose 158 mg/dL (83-110); Potassium 3.4 mmol/L (3.5-5.1); Sodium 133 mmol/L (136-145)
[2017-10-24] MEDS: Ferrous Sulfate 325 MG TAB PO SCH (08:51)
[2017-10-24] MEDS: Gabapentin 300 MG CAP PO SCH ×3 (08:52→20:27)
[2017-10-24] MEDS: Amiodarone 200 MG TAB PO SCH ×2 (08:52→20:28)
[2017-10-24] MEDS: Digoxin 0.125 MG TAB PO SCH (08:52)
[2017-10-24] MEDS: Saccharomyces boulardii 250 MG CAP PO SCH (08:52)
[2017-10-24] MEDS: DULoxetine 30 MG CAP PO SCH (08:53)
[2017-10-24] MEDS: Potassium Chloride 20 MEQ TAB PO SCH (08:53)
[2017-10-24] MEDS: Insulin Glargine 15 UNITS in Pre-Filled Syringe 1 EACH SC SCH ×2 (08:58→20:28)
--- NOTE | 2017-10-24 09:00 | PRG ---
DATE OF SERVICE: 10/24/2017 SUBJECTIVE: The patient seems to be doing okay. He is still requiring a Dilaudid pain pump. OBJECTIVE: VITAL SIGNS: Temperature is 98.2, pulse 74, respiration 16, O2 sat 96%, blood pressure 176/76. HEENT: Unremarkable. NECK: No JVD. LUNGS: Clear. CARDIAC: S1 and S2 muffled by 3/6 holosystolic murmur. ABDOMEN: Soft, nontender. EXTREMITIES: No edema. LABORATORY DATA: White blood cell count 8.7, hematocrit 23.8, platelet count 218. Sodium 133, potas sium 3.4, chloride 106, CO2 of 23, BUN 10, creatinine 0.8, glucose 158. ASSESSMENT: 1. Methicillin-resistant Staphylococcus aureus bacteremia. 2. Sepsis. 3. Atrial fibrillation. 4. Underlying chronic obstructive pulmonary disease. 5. Pulmonary nodules. 6. Peripheral vascular disease. PLAN: The patient will probably need to continue on a monitored unit as long as he is requiring the medication administered through the pain pump; however, I think we can probably put on telemetry inst ead of the [facility]. I will go ahead and stop his IV fluids as he appears to be euvolemic.
[2017-10-24] MEDS ORDERED: Potassium Chloride 20 MEQ TAB PO SCH (09:30)
[2017-10-24] MEDS ORDERED: GoLYTELY 4,000 ml Bottle PO SCH (10:00)
--- NOTE | 2017-10-24 10:10 | PDOC.PN ---
- Subjective Encounter Start Date: 10/24/17 Encounter Start Time: 07:00 pt does not have any further bleeding, he still has back pain, no fever, waiting for tele bed - Objective Resuscitation Status: Resuscitation Status DNR:Do Not Resuscitate MAR Reviewed: Yes Vital Signs & Weight: Vital Signs (12 hours) Temp Pulse Resp BP BP Pulse Ox 10/24/17 08:52 74 10/24/17 07:58 96 10/24/17 07:56 74 16 96 10/24/17 07:27 98.2 F 71 19 176/76 H 96 10/24/17 05:37 72 181/74 H 10/24/17 03:28 97.4 F L 70 13 163/70 H 93 L 10/24/17 00:05 69 16 98 10/24/17 00:00 97.1 F L 68 14 163/70 H 96 Weight Admit Weight 177 lb 0.499 oz Weight 199 lb 9.6 oz Most Recent Monitor Data Heart Rate from ECG 107 NIBP 110/67 NIBP BP-Mean 83 Respiration from ECG 17 SpO2 97 I&O: 10/23/17 10/24/17 10/25/17 06:59 06:59 06:59 Intake Total 3933 4517 360 Output Total 1000 2700 Balance 2933 1817 360 Result Diagrams: 10/24/17 06:52 10/24/17 06:52 Additional Labs: Accuchecks 10/24/17 10/23/17 10/23/17 05:44 20:15 16:32 POC Glucose 190 H 155 H 165 H 10/23/17 10:54 POC Glucose 215 H EKG Reviewed by me: Yes (nsr) Phys Exam - Physical Examination Constitutional: NAD HEENT: PERRLA, moist MMs, sclera anicteric Neck: no JVD, supple Respiratory: no wheezing, no rales, no rhonchi Cardiovascular: RRR, no rub SM+ Gastrointestinal: soft, non-tender, no distention, positive bowel sounds Musculoskeletal: no edema, pulses present Neurological: moves all 4 limbs Lymphatic: no nodes Psychiatric: normal affect, A&O x 3 Skin: no rash, normal turgor Dx/Plan (1) Acute kidney failure Status: Resolved (2) Atrial fibrillation with rapid ventricular response Code(s): I48.91 - UNSPECIFIED ATRIAL FIBRILLATION Status: Acute Comment: controlled, now nsr (3) Demand ischemia of myocardium Code(s): I24.8 - OTHER FORMS OF ACUTE ISCHEMIC HEART DISEASE Status: Acute (4) Hematuria, gross Status: Resolved Comment: s/p Vir[place]es by urology w dorsal slit (5) Hyponatremia Code(s): E87.1 - HYPO-OSMOLALITY AND HYPONATREMIA Status: Resolved (6) Lactic acidosis Code(s): E87.2 - ACIDOSIS Status: Resolved (7) Sepsis with acute organ dysfunction Code(s): A41.9 - SEPSIS, UNSPECIFIED ORGANISM; R65.20 - SEVERE SEPSIS WITHOUT SEPTIC SHOCK Status: Acute (8) Splenic infarct Code(s): D73.5 - INFARCTION OF SPLEEN Status: Acute Comment: ? septic embolization (9) 3-vessel CAD Status: Chronic (10) Alcoholic cirrhosis of liver Code(s): K70.30 - ALCOHOLIC CIRRHOSIS OF LIVER WITHOUT ASCITES Status: Chronic Qualifiers: Ascites presence: without ascites Qualified Code(s): K70.30 - Alcoholic cirrhosis of liver without ascites (11) Anemia, macrocytic Code(s): D53.9 - NUTRITIONAL ANEMIA, UNSPECIFIED Status: Chronic (12) Anxiety and depression Code(s): F41.9 - ANXIETY DISORDER, UNSPECIFIED; F32.9 - MAJOR DEPRESSIVE DISORDER, SINGLE EPISODE, UNSPECIFIED Status: Chronic (13) COPD (chronic obstructive pulmonary disease) Status: Chronic (14) Chronic combined systolic and diastolic CHF (congestive heart failure) Code(s): I50.42 - CHRONIC COMBINED SYSTOLIC AND DIASTOLIC HRT FAIL Status: Chronic Comment: Compensated for now (15) DM type 2 (diabetes mellitus, type 2) Status: Chronic Qualifiers: Diabetes mellitus termite inspector insulin use: with longterm use Diabetes mellitus complication status: without complication Qualified Code(s): E11.9 - Type 2 diabetes mellitus without complications; Z79.4 - termite control service representative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; Z79.4 - termite control service representative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; Z79.4 - [facility] ( 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; Z79.4 - [facility]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 (16) Dyslipidemia Code(s): E78.5 - HYPERLIPIDEMIA, UNSPECIFIED Status: Chronic (17) GERD (gastroesophageal reflux disease) Code(s): K21.9 - GASTRO-ESOPHAGEAL REFLUX DISEASE WITHOUT ESOPHAGITIS Status: Chronic (18) HTN (hypertension) Code(s): I10 - ESSENTIAL (PRIMARY) HYPERTENSION Status: Chronic (19) Hypoalbuminemia due to protein-calorie malnutrition Code(s): E46 - UNSPECIFIED PROTEIN-CALORIE MALNUTRITION Status: Chronic (20) Hypothyroidism Code(s): E03.9 - HYPOTHYROIDISM, UNSPECIFIED Status: Chronic (21) PVD (peripheral vascular disease) Code(s): I73.9 - PERIPHERAL VASCULAR DISEASE, UNSPECIFIED Status: Chronic (22) Protein-calorie malnutrition, moderate Code(s): E44.0 - MODERATE PROTEIN-CALORIE MALNUTRITION Status: Chronic (23) Thrombocytopenia Code(s): D69.6 - THROMBOCYTOPENIA, UNSPECIFIED Status: Chronic (24) Tobacco abuse Code(s): Z72.0 - TOBACCO USE Status: Chronic (25) Aortic stenosis Code(s): I35.0 - NONRHEUMATIC AORTIC (VALVE) STENOSIS Status: Chronic Comment: severe (26) Bacteremia due to methicillin resistant Staphylococcus aureus Code(s): R78.81 - BACTEREMIA Status: Acute Comment: Suspect Infective endocarditis and /or Diskitis (27) Gangrene of toe of right foot Code(s): I96 - GANGRENE, NOT ELSEWHERE CLASSIFIED Status: Acute (28) Cavitary lesion of lung Code(s): J98.4 - OTHER DISORDERS OF LUNG Status: Chronic Comment: Op work up done at [place] (29) UTI (urinary tract infection) Status: Acute (30) Hypokalemia Code(s): E87.6 - HYPOKALEMIA Status: Acute (31) Osteomyelitis of toe of right foot Code(s): M86.9 - OSTEOMYELITIS, UNSPECIFIED Status: Acute (32) Acute GI bleeding Code(s): K92.2 - GASTROINTESTINAL HEMORRHAGE, UNSPECIFIED Status: Acute (33) Anemia due to acute blood loss Code(s): D62 - ACUTE POSTHEMORRHAGIC ANEMIA Status: Acute (34) Hypomagnesemia Code(s): E83.42 - HYPOMAGNESEMIA Status: Acute (35) Hypotension Status: Acute - Plan cont current plan of care, continue antibiotics, respiratory therapy * we are treating as if IE with septic emboli, with IV vancomycin * we are trying to get [place], MRI LS and CS but not possible yet due to his uncontrolled pain and risk of anesthesia * his H & H now stable * now his BP is going up, so will start his coreg and lisinopril * medication reviewed as below * symptomatic treatment * he is not stable enough to discharge to anywhere due to his uncontrolled pain , not definitive diagnosis and plan. * ID, cardiology and pulmonary following * he will need picc line and longer IV antibiotics and placement Review of Systems - Review of Systems Constitutional: weakness. negative: fever, chills, sweats, malaise, other ENT: negative: Ear Pain, Ear Discharge, Nose Pain, Nose Discharge, Nose Congestion, Mouth Pain, Mouth Swelling, Throat Pain, Throat Swelling, Other Respiratory: negative: Cough, Dry, Shortness of Breath, Hemoptysis, SOB with Excertion, Pleuritic Pain, Sputum, Wheezing Cardiovascular: negative: chest pain, palpitations, orthopnea, paroxysmal nocturnal dyspnea, edema, light headedness, other Gastrointestinal: negative: Nausea, Vomiting, Abdominal Pain, Diarrhea, Constipation, Melena, Hematochezia, Other Genitourinary: negative: Dysuria, Frequency, Incontinence, Hematuria, Retention , Other Musculoskeletal: Back Pain. negative: Neck Pain, Shoulder Pain, Arm Pain, Hand Pain, Leg Pain, Foot Pain, Other Skin: negative: Rash, Lesions, Arnoldo, Bruising, Other - Medications/Allergies Allergies/Adverse Reactions: Allergies Allergy/AdvReac Type Severity Reaction Status Date / Time No Known Allergies Allergy Unverified 07/23/17 10:34 Medications: Current Medications Acetaminophen (Tylenol) 650 mg PO Q4H PRN PRN Reason: Headache/Fever or Pain Last Admin: 10/18/17 20:52 Dose: 650 mg Al Hydroxide/Mg Hydroxide (Maalox) 30 ml PO Q6H PRN PRN Reason: Heartburn or Indigestion Albuterol/Ipratropium (Duoneb) 3 ml NEB [id number] [facility] Last Admin: 10/24/17 07:56 Dose: 3 ml Amiodarone HCl (Cordarone) 200 mg PO BID [facility] Last Admin: 10/24/17 08:52 Dose: 200 mg Artificial Tears (Tears Naturale) 0 drop EA EYE PRN PRN PRN Reason: Dry Eyes Atorvastatin Calcium (Lipitor) 40 mg PO HS [facility] Last Admin: 10/23/17 20:13 Dose: 40 mg Budesonide (Pulmicort Neb Solution) 0.5 mg INH BID-RT MICHAELA Last Admin: 10/23/17 18:36 Dose: 0.5 mg Dextrose/Water (Dextrose 50%) 25 gm SLOW IVP PRN PRN PRN Reason: Hypoglycemia Digoxin (Lanoxin) 0.125 mg PO QAM [facility] Last Admin: 10/24/17 08:52 Dose: 0.125 mg Duloxetine HCl (Cymbalta) 30 mg PO DAILY [facility] Last Admin: 10/24/17 08:53 Dose: 30 mg Ferrous Sulfate (Feosol) 325 mg PO DAILY [facility] Last Admin: 10/24/17 08:51 Dose: 325 mg Gabapentin (Neurontin) 300 mg PO TID [facility] Last Admin: 10/24/17 08:52 Dose: 300 mg Glucagon (Glucagon) 1 mg IM PRN PRN PRN Reason: Hypoglycemia Guaifenesin (Robitussin Sf) 200 mg PO Q4H PRN PRN Reason: Cough Hydralazine HCl (Apresoline) 10 mg SLOW IVP Q4H PRN PRN Reason: Systolic BP > 180 Last Admin: 10/24/17 05:37 Dose: 10 mg Hydromorphone HCl (Dilaudid Cadd) 0 mg IV INF PRN PRN Reason: Pain Dextrose/Water (D5w) 1,000 mls @ 0 mls/hr IV .Q0M PRN; As Directed PRN Reason: Hypoglycemia Insulin Glargine 15 units/ (Miscellaneous Medication) 0.15 mls @ 0 mls/hr SC HS [facility] Last Admin: 10/23/17 20:14 Dose: 0.15 mls Insulin Glargine 15 units/ (Miscellaneous Medication) 0.15 mls @ 0 mls/[place] [facility] [place] Admin: 10/24/17 08:58 Dose: Not Given Vancomycin HCl 1.75 gm/ Sodium (Chloride) 500 mls @ 250 mls/hr IVPB 0300 [facility] Last Admin: 10/24/17 02:46 Dose: 500 mls Sodium Chloride (Normal Saline 0.9%) 1,000 mls @ 80 mls/hr IV .[id number] [facility] Last Admin: 10/24/17 09:41 Dose: Not Given Insulin Human Lispro (Humalog) 0 units SC .MODERATE SLIDING SC PRN PRN Reason: Moderate Correctional Scale Last Admin: 10/24/17 05:43 Dose: 2 unit Insulin Human Lispro (Humalog) 0 units SC .BEDTIME SLIDING SC PRN PRN Reason: Bedtime Correctional Scale Last Admin: 10/22/17 22:30 Dose: 3 unit Labetalol HCl (Normodyne) 20 mg SLOW IVP Q4H PRN PRN Reason: Systolic BP > 180 Last Admin: 10/18/17 06:33 Dose: 20 mg Lactulose (Lactulose) 20 gm PO DAILYPRN PRN PRN Reason: Constipation Lactulose (Lactulose) 30 gm PO DAILY [facility] Last Admin: 10/24/17 08:51 Dose: 30 gm Levothyroxine Sodium (Synthroid) 175 mcg PO 0600 [facility] Last Admin: 10/24/17 05:38 Dose: 175 mcg Loperamide HCl (Imodium) 2 mg PO PRN PRN PRN Reason: Diarrhea/Loose Stools Loratadine (Claritin) 10 mg PO DAILYPRN PRN PRN Reason: Sinus Symptoms Magnesium Hydroxide (Milk Of Magnesium) 30 ml PO DAILYPRN PRN PRN Reason: Constipation Last Admin: 10/20/17 10:40 Dose: 30 ml Mineral Oil/White Petrolatum (Eucerin Cream) 0 gm TOP BIDPRN PRN PRN Reason: Dry Skin Miscellaneous Medication (Pharmacy To Dose) 1 each IVPB PRN PRN PRN Reason: Pharmacy to dose Nitroglycerin (Nitrostat) 0.4 mg SL Q5MIN PRN PRN Reason: Chest Pain Ondansetron HCl (Zofran Odt) 4 mg PO Q6H PRN PRN Reason: Nausea/Vomiting Ondansetron HCl (Zofran) 4 mg IVP Q6H PRN PRN Reason: Nausea/Vomiting Phenol (Chloraseptic [place] 180 Ml Bot) 0 ml PO PRN PRN PRN Reason: Sore Throat Phenyleph/Shark Oil/[place] Butter (Preparation H) 1 supp DC QIDPRN PRN PRN Reason: Hemorrhoids Last Admin: 10/21/17 03:05 Dose: 1 supp Polyethylene Glycol/Electrolytes (Golytely) 4,000 ml PO NOW [facility] Stop: 10/24/17 15:00 Potassium Chloride (K-Dur) 20 meq PO QAM[facility] Last Admin: 10/24/17 08:53 Dose: 20 meq Potassium Chloride (K-Dur) 40 meq PO NOW [facility] Stop: 10/24/17 11:30 Saccharomyces Boulardii (Florastor) 250 mg PO DAILY [facility] Last Admin: 10/24/17 08:52 Dose: 250 mg Senna (Senokot) 2 tab PO HSPRN PRN PRN Reason: Constipation Last Admin: 10/20/17 20:49 Dose: 2 tab Sodium Chloride ([place] Nasal [place] 0.65%) 0 ml EA NARE QIDPRN PRN PRN Reason: Nasal Congestion Sodium Chloride (Flush - Normal Saline) 10 ml IVF Q12HR [facility] Last Admin: 10/24/17 09:05 Dose: Not Given Sodium Chloride (Flush - Normal Saline) 10 ml IVF PRN PRN PRN Reason: Saline Flush Thiamine HCl (Thiamine) 100 mg PO DAILY [facility] Last Admin: 10/24/17 08:52 Dose: 100 mg Trazodone HCl (Desyrel) 100 mg PO HS PRN PRN Reason: Insomnia
--- NOTE | 2017-10-24 10:14 | PRG ---
DATE OF SERVICE: 10/24/2017. SUBJECTIVE: Mr. Cruz feels well. He has no chest pain or pressure, no shortness of breath. PHYSICAL EXAMINATION: VITAL SIGNS: Blood pressure was 176/76, pulse 74, regular. LUNGS: Clear anteriorly and laterally. CARDIAC: There is aortic stenosis murmur as before. ABDOMEN: Soft, nontender. EXTREMITIES: There is no edema. ASSESSMENT: 1. Congestive heart failure, stable, improved. Does not appear to be in heart failure currently. 2. Aortic stenosis. 3. Inoperable coronary artery disease. 4. Recurrent gastrointestinal bleeding. PLAN: 1. Looks stable to proceed with a colonoscopy as is being planned. 2. We will reduce intravenous fluid. 3. Continue amiodarone. He is staying in sinus rhythm.
[2017-10-24 16:47] LABS: #Lymphocytes 1.1 thou/uL (1.20-3.40); #Monocytes 0.6 thou/uL (0.11-0.59); #Neutrophils 8.1 thou/uL (1.40-6.50); %Basophils 0.1 % (0.0-1.0); %Eosinophils 0.4 % (0.0-10.0); %Lymphocytes 10.8 % (21.0-51.0); %Monocytes 5.6 % (0.0-10.0); %Neutrophils 83.1 % (42.0-75.0); Hemoglobin 7.6 g/dL (14.0-18.0); Mean Corpuscular HGB CONC 33.6 g/dL (32.0-36.0); Mean Corpuscular Hemoglobin 31.4 pg (27.0-31.0); Mean Corpuscular Volume 93.5 fL (78.0-98.0); Mean Platelet Volume 7.2 fL (7.4-10.4); Platelet Count 223 thou/uL (130-400); RBC Distribution Width 16.1 % (11.5-14.5); Red Blood Cell (RBC) Count 2.41 mill/uL (4.70-6.10); White Blood Cell (WBC) Count 9.8 thou/uL (4.8-10.8)
[2017-10-24] MEDS: Carvedilol 6.25 MG TAB PO SCH (18:17)
[2017-10-24] MEDS: Budesonide 0.5 MG/2 ML NEB INH SCH (18:34)
[2017-10-24] MEDS: Atorvastatin Calcium 40 MG TAB PO SCH (20:27)
[2017-10-25] MEDS: Vancomycin HCl 1.75 GM in Sodium Chloride 0.9% 500 ML IVPB SCH (02:58)
[2017-10-25] MEDS: Budesonide 0.5 MG/2 ML NEB INH SCH ×3 (03:37→18:48)
--- NOTE | 2017-10-25 06:08 | PRG ---
DATE OF SERVICE: 10/24/2017 SUBJECTIVE: This is a 72-year-old male with hematochezia and abdominal pain. The patient had a positive radionuclear scan 3 days ago. He has some recurrence of bleeding. Blood count is sta ble around 8 grams. He has had some loose stool, being on lactulose. His abdominal pain is markedly improved. No chest pain, no difficulty breathing. I did talk Dr. Melo about whether the patient could have a colonoscopy because of recent ND [address] Melo found that patient is stable enough to undergo colonoscopy. We did talk Mr. Cruz about having a colonoscopy because of recent h ematochezia. He is agreeable. PHYSICAL EXAMINATION: VITAL SIGNS: He is afebrile. His vital signs are stable. CARDIOVASCULAR SYSTEM: First and second heart sounds normal. LUNGS: Clear to auscultation. ABDOMEN: Soft to palpate. Abdomen is mildly tender across the lower abdomen. There is no rebound o r guarding. LABORATORY DATA: The most recent CBC showed hemoglobin of 8 grams. PLAN: Colonoscopy after bowel prep.
[2017-10-25] MEDS: Levothyroxine 175 MCG TAB PO SCH (06:17)
[2017-10-25] MEDS: Carvedilol 6.25 MG TAB PO SCH ×2 (06:17→17:03)
[2017-10-25 08:32] LABS: #Monocytes 0.5 thou/uL (0.11-0.59); %Eosinophils 0.4 % (0.0-10.0); %Lymphocytes 11.6 % (21.0-51.0); %Monocytes 6.1 % (0.0-10.0); %Neutrophils 81.9 % (42.0-75.0); Hemoglobin 6.4 g/dL (14.0-18.0); Mean Corpuscular HGB CONC 34.2 g/dL (32.0-36.0); Mean Corpuscular Volume 93.6 fL (78.0-98.0); Mean Platelet Volume 6.8 fL (7.4-10.4); Platelet Count 212 thou/uL (130-400); RBC Distribution Width 16.6 % (11.5-14.5); Red Blood Cell (RBC) Count 1.99 mill/uL (4.70-6.10); White Blood Cell (WBC) Count 8.6 thou/uL (4.8-10.8)
--- NOTE | 2017-10-25 08:41 | PRG ---
DATE OF SERVICE: 10/25/2017 SUBJECTIVE: Mr. Cruz is resting comfortably, no complaints. PHYSICAL EXAMINATION: VITAL SIGNS: Blood pressure 133/62, pulse 70, it is regular, sinus on the monitor. LUNGS: Clear. CARDIAC: Normal S1 and normal S2. ASSESSMENT: 1. Aortic stenosis. 2. Congestive heart failure, stable. 3. Inoperable coronary artery disease. 4. Recurrent gastrointestinal bleeding. PLAN: He is to undergo colonoscopy today, he is doing well.
[2017-10-25] MEDS: Amiodarone 200 MG TAB PO SCH ×2 (09:44→21:09)
[2017-10-25] MEDS: Potassium Chloride 20 MEQ TAB PO SCH (09:44)
[2017-10-25] MEDS: Lisinopril 2.5 MG TAB PO SCH (09:44)
[2017-10-25] MEDS: Digoxin 0.125 MG TAB PO SCH (09:44)
[2017-10-25] MEDS: Saccharomyces boulardii 250 MG CAP PO SCH (09:45)
[2017-10-25] MEDS: DULoxetine 30 MG CAP PO SCH (09:45)
[2017-10-25] MEDS: Gabapentin 300 MG CAP PO SCH ×3 (09:45→21:09)
[2017-10-25] MEDS: Ferrous Sulfate 325 MG TAB PO SCH (09:45)
[2017-10-25] MEDS: Sodium Chloride 0.9% 1,000 ML IV SCH ×2 (09:50→23:34)
[2017-10-25] MEDS ORDERED: fentaNYL 100 mcg/hour Patch TD SCH (10:00)
[2017-10-25] MEDS: Insulin Glargine 15 UNITS in Pre-Filled Syringe 1 EACH SC SCH ×2 (10:02→21:16)
--- NOTE | 2017-10-25 11:17 | PDOC.PN ---
- Subjective Encounter Start Date: 10/25/17 Encounter Start Time: 09:45 Patient seen and examined. still has intermittent BRBPR, today Hb dropped, still has back pain No overnight events - Objective Resuscitation Status: Resuscitation Status DNR:Do Not Resuscitate MAR Reviewed: Yes Vital Signs & Weight: Vital Signs (12 hours) Temp Pulse Resp BP BP Pulse Ox 10/25/17 09:44 66 10/25/17 09:39 70 16 95 10/25/17 09:37 95 10/25/17 09:34 70 16 95 10/25/17 08:15 97.8 F 75 17 97 10/25/17 07:23 97.8 F 75 17 132/63 94 L 10/25/17 06:17 138/56 L 10/25/17 04:00 98.1 F 70 18 114/57 L 93 L Weight Admit Weight 177 lb 0.499 oz Weight 203 lb 6.4 oz Most Recent Monitor Data Heart Rate from ECG 107 NIBP 110/67 NIBP BP-Mean 83 Respiration from ECG 17 SpO2 97 I&O: 10/24/17 10/25/17 10/26/17 06:59 06:59 06:59 Intake Total 4517 1360 Output Total 2700 1225 Balance 1817 135 Result Diagrams: 10/25/17 08:25 10/24/17 06:52 Additional Labs: Accuchecks 10/25/17 10/25/17 10/24/17 10:46 05:25 20:26 POC Glucose 109 129 H 135 H 10/24/17 10/24/17 16:49 10:27 POC Glucose 157 H 197 H EKG Reviewed by me: Yes (nsr) Phys Exam - Physical Examination Constitutional: NAD HEENT: PERRLA, moist MMs, sclera anicteric Neck: no JVD, supple Respiratory: no wheezing, no rales, no rhonchi, clear to auscultation bilateral Cardiovascular: RRR, no rub SM+ Gastrointestinal: soft, non-tender, no distention, positive bowel sounds Musculoskeletal: no edema, pulses present Neurological: moves all 4 limbs Lymphatic: no nodes Psychiatric: normal affect Skin: no rash, normal turgor Dx/Plan (1) Acute kidney failure Status: Resolved (2) Atrial fibrillation with rapid ventricular response Code(s): I48.91 - UNSPECIFIED ATRIAL FIBRILLATION Status: Acute Comment: controlled, now nsr (3) Demand ischemia of myocardium Code(s): I24.8 - OTHER FORMS OF ACUTE ISCHEMIC HEART DISEASE Status: Acute (4) Hematuria, gross Status: Resolved Comment: s/p Viramontes by urology w dorsal slit (5) Hyponatremia Code(s): E87.1 - HYPO-OSMOLALITY AND HYPONATREMIA Status: Resolved (6) Lactic acidosis Code(s): E87.2 - ACIDOSIS Status: Resolved (7) Sepsis with acute organ dysfunction Code(s): A41.9 - SEPSIS, UNSPECIFIED ORGANISM; R65.20 - SEVERE SEPSIS WITHOUT SEPTIC SHOCK Status: Acute (8) Splenic infarct Code(s): D73.5 - INFARCTION OF SPLEEN Status: Acute Comment: ? septic embolization (9) 3-vessel CAD Status: Chronic (10) Alcoholic cirrhosis of liver Code(s): K70.30 - ALCOHOLIC CIRRHOSIS OF LIVER WITHOUT ASCITES Status: Chronic Qualifiers: Ascites presence: without ascites Qualified Code(s): K70.30 - Alcoholic cirrhosis of liver without ascites (11) Anemia, macrocytic Code(s): D53.9 - NUTRITIONAL ANEMIA, UNSPECIFIED Status: Chronic (12) Anxiety and depression Code(s): F41.9 - ANXIETY DISORDER, UNSPECIFIED; F32.9 - MAJOR DEPRESSIVE DISORDER, SINGLE EPISODE, UNSPECIFIED Status: Chronic (13) COPD (chronic obstructive pulmonary disease) Status: Chronic (14) Chronic combined systolic and diastolic CHF (congestive heart failure) Code(s): I50.42 - CHRONIC COMBINED SYSTOLIC AND DIASTOLIC HRT FAIL Status: Chronic Comment: Compensated for now (15) DM type 2 (diabetes mellitus, type 2) Status: Chronic Qualifiers: Diabetes mellitus detention insulin use: with manager community development use Diabetes mellitus complication status: without complication Qualified Code(s): E11.9 - Type 2 diabetes mellitus without complications; Z79.4 - marine fireman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; Z79.4 - group home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; Z79.4 - marine fireman ( 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; Z79.4 - group home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 (16) Dyslipidemia Code(s): E78.5 - HYPERLIPIDEMIA, UNSPECIFIED Status: Chronic (17) GERD (gastroesophageal reflux disease) Code(s): K21.9 - GASTRO-ESOPHAGEAL REFLUX DISEASE WITHOUT ESOPHAGITIS Status: Chronic (18) HTN (hypertension) Code(s): I10 - ESSENTIAL (PRIMARY) HYPERTENSION Status: Chronic (19) Hypoalbuminemia due to protein-calorie malnutrition Code(s): E46 - UNSPECIFIED PROTEIN-CALORIE MALNUTRITION Status: Chronic (20) Hypothyroidism Code(s): E03.9 - HYPOTHYROIDISM, UNSPECIFIED Status: Chronic (21) PVD (peripheral vascular disease) Code(s): I73.9 - PERIPHERAL VASCULAR DISEASE, UNSPECIFIED Status: Chronic (22) Protein-calorie malnutrition, moderate Code(s): E44.0 - MODERATE PROTEIN-CALORIE MALNUTRITION Status: Chronic (23) Thrombocytopenia Code(s): D69.6 - THROMBOCYTOPENIA, UNSPECIFIED Status: Chronic (24) Tobacco abuse Code(s): Z72.0 - TOBACCO USE Status: Chronic (25) Aortic stenosis Code(s): I35.0 - NONRHEUMATIC AORTIC (VALVE) STENOSIS Status: Chronic Comment: severe (26) Bacteremia due to methicillin resistant Staphylococcus aureus Code(s): R78.81 - BACTEREMIA Status: Acute Comment: Suspect Infective endocarditis and /or Diskitis (27) Gangrene of toe of right foot Code(s): I96 - GANGRENE, NOT ELSEWHERE CLASSIFIED Status: Acute (28) Cavitary lesion of lung Code(s): J98.4 - OTHER DISORDERS OF LUNG Status: Chronic Comment: Op work up done at OR (29) UTI (urinary tract infection) Status: Acute (30) Hypokalemia Code(s): E87.6 - HYPOKALEMIA Status: Acute (31) Osteomyelitis of toe of right foot Code(s): M86.9 - OSTEOMYELITIS, UNSPECIFIED Status: Acute (32) Acute GI bleeding Code(s): K92.2 - GASTROINTESTINAL HEMORRHAGE, UNSPECIFIED Status: Acute (33) Anemia due to acute blood loss Code(s): D62 - ACUTE POSTHEMORRHAGIC ANEMIA Status: Acute (34) Hypomagnesemia Code(s): E83.42 - HYPOMAGNESEMIA Status: Acute (35) Hypotension Status: Acute - Plan cont current plan of care, continue antibiotics, PT/OT, social science manager * continue vancomycin * will transfuse 2 unit PRBC * monitor hemodynemics, hold BP meds for SBP <120 * today colonoscopy * medication reviewed as below * symptomatic treatment * MRI when feasible * [place] when cardio ok. Review of Systems - Review of Systems Constitutional: weakness. negative: fever, chills, sweats, malaise, other ENT: negative: Ear Pain, Ear Discharge, Nose Pain, Nose Discharge, Nose Congestion, Mouth Pain, Mouth Swelling, Throat Pain, Throat Swelling, Other Respiratory: negative: Cough, Dry, Shortness of Breath, Hemoptysis, SOB with Excertion, Pleuritic Pain, Sputum, Wheezing Cardiovascular: negative: chest pain, palpitations, orthopnea, paroxysmal nocturnal dyspnea, edema, light headedness, other Gastrointestinal: Hematochezia Genitourinary: negative: Dysuria, Frequency, Incontinence, Hematuria, Retention , Other Musculoskeletal: Back Pain. negative: Neck Pain, Shoulder Pain, Arm Pain, Hand Pain, Leg Pain, Foot Pain, Other Skin: negative: Rash, Lesions, Arnoldo, Bruising, Other - Medications/Allergies Allergies/Adverse Reactions: Allergies Allergy/AdvReac Type Severity Reaction Status Date / Time No Known Allergies Allergy Unverified 07/23/17 10:34 Medications: Current Medications Acetaminophen (Tylenol) 650 mg PO Q4H PRN PRN Reason: Headache/Fever or Pain Last Admin: 10/18/17 20:52 Dose: 650 mg Al Hydroxide/Mg Hydroxide (Maalox) 30 ml PO Q6H PRN PRN Reason: Heartburn or Indigestion Albuterol/Ipratropium (Duoneb) 3 ml NEB [id number] [facility] Last Admin: 10/25/17 09:34 Dose: 3 ml Amiodarone HCl (Cordarone) 200 mg PO BID [facility] Last Admin: 10/25/17 09:44 Dose: 200 mg Artificial Tears (Tears Naturale) 0 drop EA EYE PRN PRN PRN Reason: Dry Eyes Atorvastatin Calcium (Lipitor) 40 mg PO HS [facility] Last Admin: 10/24/17 20:27 Dose: 40 mg Budesonide (Pulmicort Neb Solution) 0.5 mg INH BID-RT [facility] Last Admin: 10/25/17 09:39 Dose: 0.5 mg Carvedilol (Coreg) 6.25 mg PO BID-WM [facility] Last Admin: 10/25/17 06:17 Dose: 6.25 mg Dextrose/Water (Dextrose 50%) 25 gm SLOW IVP PRN PRN PRN Reason: Hypoglycemia Digoxin (Lanoxin) 0.125 mg PO QAM [facility] Last Admin: 10/25/17 09:44 Dose: 0.125 mg Duloxetine HCl (Cymbalta) 30 mg PO DAILY [facility] Last Admin: 10/25/17 09:45 Dose: 30 mg Fentanyl (Duragesic) 100 mcg TD NOW [facility] Stop: 10/25/17 12:00 Last Admin: 10/25/17 10:29 Dose: 100 mcg Ferrous Sulfate (Feosol) 325 mg PO DAILY [facility] Last Admin: 10/25/17 09:45 Dose: 325 mg Gabapentin (Neurontin) 300 mg PO TID [facility] Last Admin: 10/25/17 09:45 Dose: 300 mg Glucagon (Glucagon) 1 mg IM PRN PRN PRN Reason: Hypoglycemia Guaifenesin (Robitussin Sf) 200 mg PO Q4H PRN PRN Reason: Cough Hydralazine HCl (Apresoline) 10 mg SLOW IVP Q4H PRN PRN Reason: Systolic BP > 180 Last Admin: 10/24/17 05:37 Dose: 10 mg Hydromorphone HCl (Dilaudid Cadd) 0 mg IV INF PRN PRN Reason: Pain Stop: 10/25/17 16:00 Last Admin: 10/25/17 09:46 Dose: 10 mg Dextrose/Water (D5w) 1,000 mls @ 0 mls/hr IV .Q0M PRN; As Directed PRN Reason: Hypoglycemia Insulin Glargine 15 units/ (Miscellaneous Medication) 0.15 mls @ 0 mls/hr [facility] Last Admin: 10/24/17 20:28 Dose: 0.15 mls Insulin Glargine 15 units/ (Miscellaneous Medication) 0.15 mls @ 0 mls/hr [facility] Last Admin: 10/25/17 10:02 Dose: Not Given Vancomycin HCl 1.75 gm/ Sodium (Chloride) 500 mls @ 250 mls/hr IVPB 0300 [facility] Last Admin: 10/25/17 02:58 Dose: 500 mls Sodium Chloride (Normal Saline 0.9%) 1,000 mls @ 80 mls/hr IV .[id number] [facility] Last Admin: 10/25/17 09:50 Dose: 1,000 mls Insulin Human Lispro (Humalog) 0 units SC .MODERATE SLIDING SC PRN PRN Reason: Moderate Correctional Scale Last Admin: 10/24/17 05:43 Dose: 2 unit Insulin Human Lispro (Humalog) 0 units SC .BEDTIME SLIDING SC PRN PRN Reason: Bedtime Correctional Scale Last Admin: 10/22/17 22:30 Dose: 3 unit Labetalol HCl (Normodyne) 20 mg SLOW IVP Q4H PRN PRN Reason: Systolic BP > 180 Last Admin: 10/18/17 06:33 Dose: 20 mg Lactulose (Lactulose) 20 gm PO DAILYPRN PRN PRN Reason: Constipation Lactulose (Lactulose) 30 gm PO DAILY [facility] Last Admin: 10/25/17 09:58 Dose: Not Given Levothyroxine Sodium (Synthroid) 175 mcg PO 0600 [facility] Last Admin: 10/25/17 06:17 Dose: 175 mcg Lisinopril (Zestril) 2.5 mg PO DAILY [facility] Last Admin: 10/25/17 09:44 Dose: 2.5 mg Loperamide HCl (Imodium) 2 mg PO PRN PRN PRN Reason: Diarrhea/Loose Stools Loratadine (Claritin) 10 mg PO DAILYPRN PRN PRN Reason: Sinus Symptoms Magnesium Hydroxide (Milk Of Magnesium) 30 ml PO DAILYPRN PRN PRN Reason: Constipation Last Admin: 10/20/17 10:40 Dose: 30 ml Mineral Oil/White Petrolatum (Eucerin Cream) 0 gm TOP BIDPRN PRN PRN Reason: Dry Skin Miscellaneous Medication (Pharmacy To Dose) 1 each IVPB PRN PRN PRN Reason: Pharmacy to dose Nitroglycerin (Nitrostat) 0.4 mg SL Q5MIN PRN PRN Reason: Chest Pain Ondansetron HCl (Zofran Odt) 4 mg PO Q6H PRN PRN Reason: Nausea/Vomiting Ondansetron HCl (Zofran) 4 mg IVP Q6H PRN PRN Reason: Nausea/Vomiting Phenol (Chloraseptic [place] 180 Ml Bot) 0 ml PO PRN PRN PRN Reason: Sore Throat Phenyleph/Shark Oil/[place] Butter (Preparation H) 1 supp MN QIDPRN PRN PRN Reason: Hemorrhoids Last Admin: 10/21/17 03:05 Dose: 1 supp Potassium Chloride (K-Dur) 20 meq PO QAM-WM [facility] Last Admin: 10/25/17 09:44 Dose: 20 meq Saccharomyces Boulardii (Florastor) 250 mg PO DAILY [facility] Last Admin: 10/25/17 09:45 Dose: 250 mg Senna (Senokot) 2 tab PO HSPRN PRN PRN Reason: Constipation Last Admin: 10/20/17 20:49 Dose: 2 tab Sodium Chloride (Caroleen Nasal [place] 0.65%) 0 ml EA NARE QIDPRN PRN PRN Reason: Nasal Congestion Sodium Chloride (Flush - Normal Saline) 10 ml IVF Q12HR [facility] Last Admin: 10/25/17 09:46 Dose: 10 ml Sodium Chloride (Flush - Normal Saline) 10 ml IVF PRN PRN PRN Reason: Saline Flush Thiamine HCl (Thiamine) 100 mg PO DAILY [facility] Last Admin: 10/25/17 09:44 Dose: 100 mg Trazodone HCl (Desyrel) 100 mg PO HS PRN PRN Reason: Insomnia
[2017-10-25] MEDS ORDERED: Activase 2 MG VIAL CATH SCH (14:00)
[2017-10-25] MEDS ORDERED: Sterile Water 10 ML VIAL IVP SCH (14:00)
--- NOTE | 2017-10-25 14:13 | PRG ---
DATE OF SERVICE: 10/24/2017 The patient is still with pain in the C-spine area and the lower back area. No respiratory symptoms, no abdominal pain or diarrhea. PHYSICAL EXAMINATION: VITAL SIGNS: T-max 98.8. Other vital signs are stable. O2 sat 93% -95%. GENERAL: Awake, alert. LUNGS: Clear. HEART: S1, S2, regular rate. ABDOMEN: Soft and not distended. BACK: Still with quite a bit of pain in the C-spine with limitation range of motion. Pain in the natividad mbosacral spine area as well. EXTREMITIES: Able to wiggle his extremities and lift the knees from the bed. LABORATORY: White cell count at 9.8, hemoglobin 7.6, platelets 223 with 82% neutrophils. Sodium 133 , creatinine 0.82. Microbiology with MRSA from 2 sets of blood cultures identified. The patient dev eloped hematochezia and was transfused and he had a bleeding scan on 10/21/2017 which showed an abnor mal scintigraphic activity conforming within the lower abdomen compatible with active bleed. A colon oscopy is planned. ASSESSMENT AND DISCUSSION: Liver cirrhosis secondary to alcoholism, coronary disease, low ejection f raction, cavitary lung disease with MRSA bacteremia, splenic lesions, ischemic fourth toe, pain in C- spine and lumbosacral spine area. The possibility of endocarditis, splenic infarcts and possible spi ne infection as well noted. The patient has developed his GI bleed which is in the process of being worked up. Will eventually need an MRI of the C-spine and lumbosacral spine attempted again. The patient to continue on protracted IV vancomycin. The end date of therapy is calculated to be 11/2017 when he will complete a 42 days of treatment. Depending on findings on MRI, he will need a l onger duration of treatment.
--- NOTE | 2017-10-25 16:57 | PRG ---
DATE OF SERVICE: 10/25/2017 SUBJECTIVE: Mr. Cruz is actually smiling more and enjoying TV more. His pain is better controlled . PHYSICAL EXAMINATION: VITAL SIGNS: He is afebrile. Blood pressure 108/59, respiratory rate 16, oximetry is 98% on room ai r. LUNGS: Clear. HEART: Regular rhythm. ABDOMEN: Soft. IMPRESSION: 1. Presumed endocarditis. 2. ? paraspinous abscess. He seems to think he could hold still for an MRI now, so it might be time to reordered this. 3. Coronary artery disease. 4. Aortic stenosis. 5. Gastrointestinal bleeding that appears to have stabilized. 6. Peripheral vascular disease, status post multiple digit amputations. 7. Underlying obstructive lung disease. 8. Multiple pulmonary nodules that had been followed up at the [facility] in [place]. PLAN: Continue antimicrobial therapy. Consider reordering the MRI.
[2017-10-25] MEDS: Atorvastatin Calcium 40 MG TAB PO SCH (21:09)
[2017-10-25] MEDS: Acetaminophen 325 MG TAB PO PRN (21:10)
--- NOTE | 2017-10-26 00:45 | OP ---
DATE OF PROCEDURE: 10/25/2017 PROCEDURE: Colonoscopy. PREOPERATIVE DIAGNOSIS: A 72-year-old male with persistent hematochezia. The patient had a positive nuclear scan about three days ago. Because he was at high risk for any procedure, t he colonoscopy was withheld until today. I talked to the jar filler who cleared the patient for co lonoscopy, the patient underwent colonoscopy. POSTOPERATIVE DIAGNOSES: 1. Large amount of fresh blood clots coming through rectum. 2. Blood and clots through the left colon all the way to splenic flexure. 3. Beyond splenic flexure, the colon appears very healthy and does not show any blood staining or an y blood all the way to the cecum. Based on the above information, it appears that the patient has bl eeding from the left colon area. 4. Left-sided diverticular disease. PROCEDURE IN DETAIL: The patient was placed on his left lateral position and was given sedation by A nesthesia Department. A rectal exam was done before the scope was advanced into the rectum. No lesi ons felt on rectal exam. The patient was passing large amount of fresh clot during the rectal exam. These clots were actually removed. A Pentax video colonoscope was introduced into the rectum and ad vanced down to the cecum. The patient had blood clots and fresh blood in the left colon. It was see n all the way to high descending colon, possibly splenic flexure. Beyond the splenic flexure, the sc ope was advanced all the way to cecum. There is no blood staining or blood seen from the cecum all t he way to splenic flexure. The left colon showed scattered diverticula under the sigmoid colon. The scope was carefully withdrawn slowly and water was irrigated and washed out. There were few diverti cula seen in the sigmoid colon filled with some blood. No active bleeding seen. Water was irrigated and washed out all the way from the splenic flexure up to rectum. Advancing vascular ectasia. The patient had predominantly diverticula in the left colon, more in the sigmoid colon area. Although th e patient was bleeding at the start of the procedure, towards the end of the procedure, I do not see any oozing of blood or any bleeding anywhere in the left colon. Overall impression based on the abov e information appears to be bleeding from the left colon. I believe it is most likely from diverticu lar bleeding. I do not see any vascular ectasia, although there is lot of blood staining irrig ation and washing out. RECOMMENDATIONS: 1. Transfuse. 2. If bleeding persist, may consider empiric octreotide infusion to see if it will help to control b leeding. 3. Surgery's input for possible left colectomy, she is probably at very high risk and may not surviv e the pressure. This was conveyed to Dr. Jone Nolan and he will probably watch him over the weeke nd and if he starts bleeding, will start him on IV octreotide.
[2017-10-26 02:20] LABS: Vancomycin, Trough 23.6 ug/mL
[2017-10-26] MEDS: Vancomycin HCl 1.5 GM in Sodium Chloride 0.9% 250 ML 300 ML IVPB SCH (05:01)
[2017-10-26] MEDS: Levothyroxine 175 MCG TAB PO SCH (05:02)
[2017-10-26] MEDS: Acetaminophen 325 MG TAB PO PRN ×2 (05:02→11:30)
[2017-10-26] MEDS: Budesonide 0.5 MG/2 ML NEB INH SCH ×2 (06:44→18:34)
[2017-10-26 07:01] LABS: #Lymphocytes 1.4 thou/uL (1.20-3.40); #Monocytes 0.6 thou/uL (0.11-0.59); #Neutrophils 4.5 thou/uL (1.40-6.50); %Basophils 0.5 % (0.0-1.0); %Eosinophils 0.6 % (0.0-10.0); %Lymphocytes 21.7 % (21.0-51.0); %Neutrophils 68.2 % (42.0-75.0); Hemoglobin 7.6 g/dL (14.0-18.0); Mean Corpuscular HGB CONC 34.9 g/dL (32.0-36.0); Mean Corpuscular Hemoglobin 32.4 pg (27.0-31.0); Mean Corpuscular Volume 92.8 fL (78.0-98.0); Mean Platelet Volume 6.9 fL (7.4-10.4); Platelet Count 192 thou/uL (130-400); RBC Distribution Width 15.6 % (11.5-14.5); Red Blood Cell (RBC) Count 2.34 mill/uL (4.70-6.10); White Blood Cell (WBC) Count 6.6 thou/uL (4.8-10.8)
[2017-10-26 07:35] LABS: Anion Gap 11 mmol/L (10-20); BUN (Urea Nitrogen) 10 mg/dL (8.4-25.7); CRP (Inflammatory) 6.16 mg/dL (= or < 0.5); Calc. Creatinine Clearance 96 mL/min (70-130); Carbon Dioxide 19 mmol/L (23-31); Chloride 106 mmol/L (98-107); Estimated GFR-MDRD 84; Glucose 126 mg/dL (83-110); Magnesium 1.1 mg/dL (1.6-2.6); Potassium 3.6 mmol/L (3.5-5.1); Sodium 132 mmol/L (136-145)
[2017-10-26] MEDS ORDERED: Sodium Chloride 0.9% 500 ML IV SCH (07:45)
[2017-10-26] MEDS: Lisinopril 2.5 MG TAB PO SCH (07:54)
[2017-10-26] MEDS ORDERED: Magnesium Sulfate 4 GM in Sodium Chloride 0.9% 250 ML 250 ML IVPB SCH (08:30)
[2017-10-26] MEDS: Insulin Glargine 15 UNITS in Pre-Filled Syringe 1 EACH SC SCH ×2 (08:52→21:04)
[2017-10-26] MEDS: Saccharomyces boulardii 250 MG CAP PO SCH (08:56)
[2017-10-26] MEDS: Digoxin 0.125 MG TAB PO SCH (08:56)
[2017-10-26] MEDS: DULoxetine 30 MG CAP PO SCH (08:56)
[2017-10-26] MEDS: Gabapentin 300 MG CAP PO SCH ×3 (08:57→21:04)
[2017-10-26] MEDS: Ferrous Sulfate 325 MG TAB PO SCH (08:57)
[2017-10-26] MEDS: Potassium Chloride 20 MEQ TAB PO SCH (08:57)
[2017-10-26] MEDS: Amiodarone 200 MG TAB PO SCH ×2 (08:57→21:04)
[2017-10-26] MEDS ORDERED: Amiodarone 200 MG TAB PO SCH (09:00)
[2017-10-26] MEDS: HumaLOG 300 UNITS/3 ML VIAL SC PRN ×2 (11:30→17:21)
[2017-10-26] MEDS: Sodium Chloride 0.9% 1,000 ML IV SCH (11:32)
--- NOTE | 2017-10-26 11:47 | PDOC.PN ---
- Subjective Encounter Start Date: 10/26/17 Encounter Start Time: 07:10 this morning he was have low BP, bolus fluid given, he denies any bleeding, he reports that now pain is controlled - Objective Resuscitation Status: Resuscitation Status DNR:Do Not Resuscitate MAR Reviewed: Yes Vital Signs & Weight: Vital Signs (12 hours) Temp Pulse Pulse Pulse Resp BP BP 10/26/17 11:39 98.4 F 92 16 10/26/17 09:40 77 84 140/69 118/58 L 10/26/17 08:56 80 10/26/17 08:00 98.6 F 80 18 10/26/17 07:54 76 10/26/17 06:47 76 16 10/26/17 06:44 76 16 10/26/17 04:47 97.9 F 73 15 10/26/17 00:04 77 BP Pulse Ox 10/26/17 11:39 95/54 L 93 L 10/26/17 09:40 10/26/17 08:56 10/26/17 08:00 88/52 L 93 L 10/26/17 07:54 10/26/17 06:47 89 L 10/26/17 06:44 89 L 10/26/17 04:47 113/60 95 10/26/17 00:04 102/57 L Weight Admit Weight 177 lb 0.499 oz Weight 200 lb 1.6 oz Most Recent Monitor Data Heart Rate from ECG 107 NIBP 110/67 NIBP BP-Mean 83 Respiration from ECG 17 SpO2 97 I&O: 10/25/17 10/26/17 10/27/17 06:59 06:59 06:59 Intake Total 1360 2270 Output Total 1225 950 Balance 135 1320 Result Diagrams: 10/26/17 06:53 10/26/17 06:53 Additional Labs: Accuchecks 10/26/17 10/26/17 10/25/17 11:04 05:55 20:55 POC Glucose 208 H 161 H 143 H EKG Reviewed by me: Yes (NSR) Phys Exam - Physical Examination Constitutional: NAD HEENT: PERRLA, moist MMs, sclera anicteric Neck: no JVD, supple Respiratory: no wheezing, no rales, no rhonchi Cardiovascular: RRR, no rub SM+ Gastrointestinal: soft, non-tender, no distention, positive bowel sounds Musculoskeletal: no edema, pulses present Neurological: moves all 4 limbs Lymphatic: no nodes Psychiatric: normal affect, A&O x 3 Skin: no rash, normal turgor Dx/Plan (1) Acute kidney failure Status: Resolved (2) Atrial fibrillation with rapid ventricular response Code(s): I48.91 - UNSPECIFIED ATRIAL FIBRILLATION Status: Acute Comment: controlled, now nsr (3) Demand ischemia of myocardium Code(s): I24.8 - OTHER FORMS OF ACUTE ISCHEMIC HEART DISEASE Status: Acute (4) Hematuria, gross Status: Resolved Comment: s/p Viramontes by urology w dorsal slit (5) Hyponatremia Code(s): E87.1 - HYPO-OSMOLALITY AND HYPONATREMIA Status: Resolved (6) Lactic acidosis Code(s): E87.2 - ACIDOSIS Status: Resolved (7) Sepsis with acute organ dysfunction Code(s): A41.9 - SEPSIS, UNSPECIFIED ORGANISM; R65.20 - SEVERE SEPSIS WITHOUT SEPTIC SHOCK Status: Acute (8) Splenic infarct Code(s): D73.5 - INFARCTION OF SPLEEN Status: Acute Comment: ? septic embolization (9) 3-vessel CAD Status: Chronic (10) Alcoholic cirrhosis of liver Code(s): K70.30 - ALCOHOLIC CIRRHOSIS OF LIVER WITHOUT ASCITES Status: Chronic Qualifiers: Ascites presence: without ascites Qualified Code(s): K70.30 - Alcoholic cirrhosis of liver without ascites (11) Anemia, macrocytic Code(s): D53.9 - NUTRITIONAL ANEMIA, UNSPECIFIED Status: Chronic (12) Anxiety and depression Code(s): F41.9 - ANXIETY DISORDER, UNSPECIFIED; F32.9 - MAJOR DEPRESSIVE DISORDER, SINGLE EPISODE, UNSPECIFIED Status: Chronic (13) COPD (chronic obstructive pulmonary disease) Status: Chronic (14) Chronic combined systolic and diastolic CHF (congestive heart failure) Code(s): I50.42 - CHRONIC COMBINED SYSTOLIC AND DIASTOLIC HRT FAIL Status: Chronic Comment: Compensated for now (15) DM type 2 (diabetes mellitus, type 2) Status: Chronic Qualifiers: Diabetes mellitus watermelon inspector insulin use: with watermelon inspector use Diabetes mellitus complication status: without complication Qualified Code(s): E11.9 - Type 2 diabetes mellitus without complications; Z79.4 - senior care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; Z79.4 - watermelon inspector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; Z79.4 - watermelon inspector ( 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; Z79.4 - senior care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 (16) Dyslipidemia Code(s): E78.5 - HYPERLIPIDEMIA, UNSPECIFIED Status: Chronic (17) GERD (gastroesophageal reflux disease) Code(s): K21.9 - GASTRO-ESOPHAGEAL REFLUX DISEASE WITHOUT ESOPHAGITIS Status: Chronic (18) HTN (hypertension) Code(s): I10 - ESSENTIAL (PRIMARY) HYPERTENSION Status: Chronic (19) Hypoalbuminemia due to protein-calorie malnutrition Code(s): E46 - UNSPECIFIED PROTEIN-CALORIE MALNUTRITION Status: Chronic (20) Hypothyroidism Code(s): E03.9 - HYPOTHYROIDISM, UNSPECIFIED Status: Chronic (21) PVD (peripheral vascular disease) Code(s): I73.9 - PERIPHERAL VASCULAR DISEASE, UNSPECIFIED Status: Chronic (22) Protein-calorie malnutrition, moderate Code(s): E44.0 - MODERATE PROTEIN-CALORIE MALNUTRITION Status: Chronic (23) Thrombocytopenia Code(s): D69.6 - THROMBOCYTOPENIA, UNSPECIFIED Status: Chronic (24) Tobacco abuse Code(s): Z72.0 - TOBACCO USE Status: Chronic (25) Aortic stenosis Code(s): I35.0 - NONRHEUMATIC AORTIC (VALVE) STENOSIS Status: Chronic Comment: severe (26) Bacteremia due to methicillin resistant Staphylococcus aureus Code(s): R78.81 - BACTEREMIA Status: Acute Comment: Suspect Infective endocarditis and /or Diskitis (27) Gangrene of toe of right foot Code(s): I96 - GANGRENE, NOT ELSEWHERE CLASSIFIED Status: Acute (28) Cavitary lesion of lung Code(s): J98.4 - OTHER DISORDERS OF LUNG Status: Chronic Comment: Op work up done at [facility] (29) UTI (urinary tract infection) Status: Acute (30) Hypokalemia Code(s): E87.6 - HYPOKALEMIA Status: Acute (31) Osteomyelitis of toe of right foot Code(s): M86.9 - OSTEOMYELITIS, UNSPECIFIED Status: Acute (32) Acute GI bleeding Code(s): K92.2 - GASTROINTESTINAL HEMORRHAGE, UNSPECIFIED Status: Acute (33) Anemia due to acute blood loss Code(s): D62 - ACUTE POSTHEMORRHAGIC ANEMIA Status: Acute (34) Hypomagnesemia Code(s): E83.42 - HYPOMAGNESEMIA Status: Acute (35) Hypotension Status: Acute - Plan cont current plan of care, continue antibiotics, social service coordinator * will repeat H & H later today * if Hb < 7, will transfuse * 500 ml bolus given and continue IVF * will DC coreg * medication reviewed as below * symptomatic treatment * continue vancomycin * will try MRI on saturday. Review of Systems - Review of Systems Eyes: negative: Pain, Vision Change, Conjunctivae Inflammation, Eyelid Inflammation, Redness, Other ENT: negative: Ear Pain, Ear Discharge, Nose Pain, Nose Discharge, Nose Congestion, Mouth Pain, Mouth Swelling, Throat Pain, Throat Swelling, Other Respiratory: negative: Cough, Dry, Shortness of Breath, Hemoptysis, SOB with Excertion, Pleuritic Pain, Sputum, Wheezing Cardiovascular: negative: chest pain, palpitations, orthopnea, paroxysmal nocturnal dyspnea, edema, light headedness, other Gastrointestinal: negative: Nausea, Vomiting, Abdominal Pain, Diarrhea, Constipation, Melena, Hematochezia, Other Genitourinary: negative: Dysuria, Frequency, Incontinence, Hematuria, Retention , Other Musculoskeletal: Back Pain. negative: Neck Pain, Shoulder Pain, Arm Pain, Hand Pain, Leg Pain, Foot Pain, Other - Medications/Allergies Allergies/Adverse Reactions: Allergies Allergy/AdvReac Type Severity Reaction Status Date / Time No Known Allergies Allergy Unverified 07/23/17 10:34 Medications: Current Medications Acetaminophen (Tylenol) 650 mg PO Q4H PRN PRN Reason: Headache/Fever or Pain Last Admin: 10/26/17 11:30 Dose: 650 mg Al Hydroxide/Mg Hydroxide (Maalox) 30 ml PO Q6H PRN PRN Reason: Heartburn or Indigestion Albuterol/Ipratropium (Duoneb) 3 ml NEB [id number] [facility] [place] Last Admin: 10/26/17 06:47 Dose: 3 ml Amiodarone HCl (Cordarone) 200 mg PO BID MICHAELA Last Admin: 10/26/17 08:57 Dose: 200 mg Artificial Tears (Tears Naturale) 0 drop EA EYE PRN PRN PRN Reason: Dry Eyes Atorvastatin Calcium (Lipitor) 40 mg PO HS [facility] [place] Last Admin: 10/25/17 21:09 Dose: 40 mg Budesonide (Pulmicort Neb Solution) 0.5 mg INH BID-RT MICHAELA Last Admin: 10/26/17 06:44 Dose: 0.5 mg Dextrose/Water (Dextrose 50%) 25 gm SLOW IVP PRN PRN PRN Reason: Hypoglycemia Digoxin (Lanoxin) 0.125 mg PO QAM [facility] [place] Last Admin: 10/26/17 08:56 Dose: 0.125 mg Duloxetine HCl (Cymbalta) 30 mg PO DAILY [facility] [place] Last Admin: 10/26/17 08:56 Dose: 30 mg Ferrous Sulfate (Feosol) 325 mg PO DAILY [facility] [place] Last Admin: 10/26/17 08:57 Dose: 325 mg Gabapentin (Neurontin) 300 mg PO TID [facility] [place] Last Admin: 10/26/17 08:57 Dose: 300 mg Glucagon (Glucagon) 1 mg IM PRN PRN PRN Reason: Hypoglycemia Guaifenesin (Robitussin Sf) 200 mg PO Q4H PRN PRN Reason: Cough Hydralazine HCl (Apresoline) 10 mg SLOW IVP Q4H PRN PRN Reason: Systolic BP > 180 Last Admin: 10/24/17 05:37 Dose: 10 mg Dextrose/Water (D5w) 1,000 mls @ 0 mls/hr IV .Q0M PRN; As Directed PRN Reason: Hypoglycemia Insulin Glargine 15 units/ (Miscellaneous Medication) 0.15 mls @ 0 mls/hr SC HS [facility] [place] Last Admin: 10/25/17 21:16 Dose: 0.15 mls Insulin Glargine 15 units/ (Miscellaneous Medication) 0.15 mls @ 0 mls/hr [facility] [place] Last Admin: 10/26/17 08:52 Dose: 0.15 mls Sodium Chloride (Normal Saline 0.9%) 1,000 mls @ 80 mls/hr IV .[id number] [facility] [place] Last Admin: 10/26/17 11:32 Dose: 1,000 mls Vancomycin HCl 1.5 gm/ Sodium (Chloride) 300 mls @ 200 mls/hr IVPB 0600 [facility] [place] Last Admin: 10/26/17 05:01 Dose: 300 mls Insulin Human Lispro (Humalog) 0 units SC .MODERATE SLIDING SC PRN PRN Reason: Moderate Correctional Scale Last Admin: 10/26/17 11:30 Dose: 4 unit Insulin Human Lispro (Humalog) 0 units SC .BEDTIME SLIDING SC PRN PRN Reason: Bedtime Correctional Scale Last Admin: 10/22/17 22:30 Dose: 3 unit Labetalol HCl (Normodyne) 20 mg SLOW IVP Q4H PRN PRN Reason: Systolic BP > 180 Last Admin: 10/18/17 06:33 Dose: 20 mg Lactulose (Lactulose) 20 gm PO DAILYPRN PRN PRN Reason: Constipation Lactulose (Lactulose) 30 gm PO DAILY [facility] [place] Last Admin: 10/26/17 08:52 Dose: 30 gm Levothyroxine Sodium (Synthroid) 175 mcg PO 0600 [facility] [place] Last Admin: 10/26/17 05:02 Dose: 175 mcg Lisinopril (Zestril) 2.5 mg PO DAILY [facility] [place] Last Admin: 10/26/17 07:54 Dose: Not Given Loperamide HCl (Imodium) 2 mg PO PRN PRN PRN Reason: Diarrhea/Loose Stools Loratadine (Claritin) 10 mg PO DAILYPRN PRN PRN Reason: Sinus Symptoms Magnesium Hydroxide (Milk Of Magnesium) 30 ml PO DAILYPRN PRN PRN Reason: Constipation Last Admin: 10/20/17 10:40 Dose: 30 ml Mineral Oil/White Petrolatum (Eucerin Cream) 0 gm TOP BIDPRN PRN PRN Reason: Dry Skin Miscellaneous Medication (Pharmacy To Dose) 1 each IVPB PRN PRN PRN Reason: Pharmacy to dose Nitroglycerin (Nitrostat) 0.4 mg SL Q5MIN PRN PRN Reason: Chest Pain Ondansetron HCl (Zofran Odt) 4 mg PO Q6H PRN PRN Reason: Nausea/Vomiting Ondansetron HCl (Zofran) 4 mg IVP Q6H PRN PRN Reason: Nausea/Vomiting Phenol (Chloraseptic [place] 180 Ml Bot) 0 ml PO PRN PRN PRN Reason: Sore Throat Phenyleph/Shark Oil/[place] Butter (Preparation H) 1 supp NC QIDPRN PRN PRN Reason: Hemorrhoids Last Admin: 10/21/17 03:05 Dose: 1 supp Potassium Chloride (K-Dur) 20 meq PO QAM-WM [facility] [place] Last Admin: 10/26/17 08:57 Dose: 20 meq Saccharomyces Boulardii (Florastor) 250 mg PO DAILY [facility] [place] Last Admin: 10/26/17 08:56 Dose: 250 mg Senna (Senokot) 2 tab PO HSPRN PRN PRN Reason: Constipation Last Admin: 10/20/17 20:49 Dose: 2 tab Sodium Chloride ([place] Nasal [place] 0.65%) 0 ml EA NARE QIDPRN PRN PRN Reason: Nasal Congestion Sodium Chloride (Flush - Normal Saline) 10 ml IVF Q12HR [facility] [place] Last Admin: 10/26/17 08:57 Dose: Not Given Sodium Chloride (Flush - Normal Saline) 10 ml IVF PRN PRN PRN Reason: Saline Flush Sodium Chloride (Flush - Normal Saline) 10 ml IVF PRN PRN PRN Reason: Saline Flush Thiamine HCl (Thiamine) 100 mg PO DAILY [facility] [place] Last Admin: 10/26/17 08:56 Dose: 100 mg Trazodone HCl (Desyrel) 100 mg PO HS PRN PRN Reason: Insomnia Last Admin: 10/26/17 00:14 Dose: 100 mg
[2017-10-26 14:06] LABS: Hemoglobin 8.6 g/dL (14.0-18.0)
--- NOTE | 2017-10-26 15:48 | PRG ---
DATE OF SERVICE: 10/26/2017 SUBJECTIVE: Mr. Cruz reports no bowel movement since colonoscopy yesterday. He has had no abdomin al pain, otherwise no acute complaints. OBJECTIVE: VITAL SIGNS: Temperature 97.8, pulse 80, blood pressure 106/62. GENERAL: He is in no acute distress, awake, and alert. LUNGS: Clear to auscultation bilaterally. HEART: Regular rate and rhythm. ABDOMEN: Mildly distended. Bowel sounds are present. EXTREMITIES: No lower extremity edema. IMPRESSION: 1. Lower gastrointestinal bleed. This is apparently a diverticular bleed. Colonoscopy did not show any active bleeding at the time of the procedure. He has had no further stool output today. He did receive 2 units transfusion yesterday and his hemoglobin improved from 6.4-8.6. 2. Cirrhosis. 3. Chronic obstructive pulmonary disease. 4. Coronary artery disease. RECOMMENDATIONS: There is no further ongoing bleeding today. We will continue to follow the hemoglo bin and recheck tomorrow morning. He is tolerating a solid diet today.
--- NOTE | 2017-10-26 17:54 | PRG ---
DATE OF SERVICE: 10/26/2017 SUBJECTIVE: John Cruz remains reasonably comfortable. OBJECTIVE: VITAL SIGNS: He is afebrile, heart rate 80, respiratory rate 16, oximetry is 94% on room air. LUNGS: Clear. HEART: Regular rhythm. ABDOMEN: Soft. LABORATORY DATA: Hemoglobin is 8.6 afternoon, 7.6 this morning. Sodium 132, potassium 3.6, chloride 106, bicarbonate 19, BUN 10, creatinine 0.89. He had endoscopy y esterday. Fresh blood in his rectum all the way to the splenic flexure. He had left-sided diverticu lar disease. Bleeding was felt to be coming from the splenic flexure down. Overall, otherwise continues with antibiotics treatment for presumed endocarditis. Blood cultures [facility] 10/17/2017 remain negative. Continue supportive care.
[2017-10-26] MEDS: Atorvastatin Calcium 40 MG TAB PO SCH (21:04)
[2017-10-27] MEDS: Sodium Chloride 0.9% 1,000 ML IV SCH ×4 (02:39→17:10)
[2017-10-27] MEDS: Vancomycin HCl 1.5 GM in Sodium Chloride 0.9% 250 ML 300 ML IVPB SCH (05:24)
[2017-10-27] MEDS: Levothyroxine 175 MCG TAB PO SCH (05:24)
[2017-10-27 06:57] LABS: #Eosinphils 0.1 thou/uL (0.0-0.7); #Monocytes 0.9 thou/uL (0.11-0.59); #Neutrophils 6.8 thou/uL (1.40-6.50); %Basophils 0.2 % (0.0-1.0); %Eosinophils 0.8 % (0.0-10.0); %Lymphocytes 11.7 % (21.0-51.0); %Neutrophils 77.2 % (42.0-75.0); Hemoglobin 7.8 g/dL (14.0-18.0); Mean Corpuscular HGB CONC 34.1 g/dL (32.0-36.0); Mean Corpuscular Hemoglobin 32.1 pg (27.0-31.0); Mean Corpuscular Volume 94.4 fL (78.0-98.0); Mean Platelet Volume 6.4 fL (7.4-10.4); Platelet Count 218 thou/uL (130-400); RBC Distribution Width 15.8 % (11.5-14.5); Red Blood Cell (RBC) Count 2.42 mill/uL (4.70-6.10); White Blood Cell (WBC) Count 8.8 thou/uL (4.8-10.8)
[2017-10-27] MEDS: Budesonide 0.5 MG/2 ML NEB INH SCH ×2 (07:02→18:16)
[2017-10-27 07:14] LABS: Anion Gap 9 mmol/L (10-20); BUN (Urea Nitrogen) 8 mg/dL (8.4-25.7); Calc. Creatinine Clearance 75 mL/min (70-130); Calcium 7.5 mg/dL (7.8-10.44); Carbon Dioxide 20 mmol/L (23-31); Chloride 106 mmol/L (98-107); Estimated GFR-MDRD 62; Glucose 146 mg/dL (83-110); Magnesium 1.8 mg/dL (1.6-2.6); Potassium 4.2 mmol/L (3.5-5.1); Sodium 131 mmol/L (136-145)
--- NOTE | 2017-10-27 08:46 | PDOC.PN ---
- Subjective Encounter Start Date: 10/27/17 Encounter Start Time: 07:10 his back pain continue to improve, his BP is also better today, his Hb dropped but he denies any further bleed - Objective Resuscitation Status: Resuscitation Status DNR:Do Not Resuscitate MAR Reviewed: Yes Vital Signs & Weight: Vital Signs (12 hours) Temp Pulse Resp BP Pulse Ox 10/27/17 07:05 95 10/27/17 07:04 79 18 95 10/27/17 07:02 79 18 95 10/27/17 04:39 97.8 F 76 14 128/65 10/27/17 00:10 65 12 Weight Admit Weight 177 lb 0.499 oz Weight 203 lb Most Recent Monitor Data Heart Rate from ECG 107 NIBP 110/67 NIBP BP-Mean 83 Respiration from ECG 17 SpO2 97 I&O: 10/26/17 10/27/17 10/28/17 06:59 06:59 06:59 Intake Total 2270 2320 Output Total 950 1150 Balance 1320 1170 Result Diagrams: 10/27/17 06:43 10/27/17 06:43 Additional Labs: Accuchecks 10/27/17 10/26/17 10/26/17 06:35 20:43 17:03 POC Glucose 151 H 144 H 169 H 10/26/17 10/25/17 11:04 16:32 POC Glucose 208 H 115 H EKG Reviewed by me: Yes (nsr) Phys Exam - Physical Examination Constitutional: NAD HEENT: PERRLA, moist MMs, sclera anicteric Neck: no JVD, supple Respiratory: no wheezing, no rales, no rhonchi Cardiovascular: RRR, no rub SM+ Gastrointestinal: soft, non-tender, no distention, positive bowel sounds Musculoskeletal: no edema, pulses present Neurological: non-focal, normal sensation Lymphatic: no nodes Psychiatric: normal affect, A&O x 3 Skin: no rash, normal turgor Dx/Plan (1) Acute kidney failure Status: Resolved (2) Atrial fibrillation with rapid ventricular response Code(s): I48.91 - UNSPECIFIED ATRIAL FIBRILLATION Status: Acute Comment: controlled, now nsr, on oral amiodaron, not a candidate for chronic anticoagulation due to GI bleeding (3) Demand ischemia of myocardium Code(s): I24.8 - OTHER FORMS OF ACUTE ISCHEMIC HEART DISEASE Status: Acute (4) Hematuria, gross Status: Resolved Comment: s/p Bravo by urology w dorsal slit (5) Hyponatremia Code(s): E87.1 - HYPO-OSMOLALITY AND HYPONATREMIA Status: Resolved (6) Lactic acidosis Code(s): E87.2 - ACIDOSIS Status: Resolved (7) Sepsis with acute organ dysfunction Code(s): A41.9 - SEPSIS, UNSPECIFIED ORGANISM; R65.20 - SEVERE SEPSIS WITHOUT SEPTIC SHOCK Status: Resolved (8) Splenic infarct Code(s): D73.5 - INFARCTION OF SPLEEN Status: Acute Comment: ? septic embolization (9) 3-vessel CAD Status: Chronic (10) Alcoholic cirrhosis of liver Code(s): K70.30 - ALCOHOLIC CIRRHOSIS OF LIVER WITHOUT ASCITES Status: Chronic Qualifiers: Ascites presence: without ascites Qualified Code(s): K70.30 - Alcoholic cirrhosis of liver without ascites (11) Anemia, macrocytic Code(s): D53.9 - NUTRITIONAL ANEMIA, UNSPECIFIED Status: Chronic (12) Anxiety and depression Code(s): F41.9 - ANXIETY DISORDER, UNSPECIFIED; F32.9 - MAJOR DEPRESSIVE DISORDER, SINGLE EPISODE, UNSPECIFIED Status: Chronic (13) COPD (chronic obstructive pulmonary disease) Status: Chronic (14) Chronic combined systolic and diastolic CHF (congestive heart failure) Code(s): I50.42 - CHRONIC COMBINED SYSTOLIC AND DIASTOLIC HRT FAIL Status: Chronic Comment: Compensated for now (15) DM type 2 (diabetes mellitus, type 2) Status: Chronic Qualifiers: Diabetes mellitus superintendent container terminal insulin use: with fdc use Diabetes mellitus complication status: without complication Qualified Code(s): E11.9 - Type 2 diabetes mellitus without complications; 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; 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; Z79.4 - FPC ( 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; 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 (16) Dyslipidemia Code(s): E78.5 - HYPERLIPIDEMIA, UNSPECIFIED Status: Chronic (17) GERD (gastroesophageal reflux disease) Code(s): K21.9 - GASTRO-ESOPHAGEAL REFLUX DISEASE WITHOUT ESOPHAGITIS Status: Chronic (18) HTN (hypertension) Code(s): I10 - ESSENTIAL (PRIMARY) HYPERTENSION Status: Chronic (19) Hypoalbuminemia due to protein-calorie malnutrition Code(s): E46 - UNSPECIFIED PROTEIN-CALORIE MALNUTRITION Status: Chronic (20) Hypothyroidism Code(s): E03.9 - HYPOTHYROIDISM, UNSPECIFIED Status: Chronic (21) PVD (peripheral vascular disease) Code(s): I73.9 - PERIPHERAL VASCULAR DISEASE, UNSPECIFIED Status: Chronic (22) Protein-calorie malnutrition, moderate Code(s): E44.0 - MODERATE PROTEIN-CALORIE MALNUTRITION Status: Chronic (23) Thrombocytopenia Code(s): D69.6 - THROMBOCYTOPENIA, UNSPECIFIED Status: Chronic (24) Tobacco abuse Code(s): Z72.0 - TOBACCO USE Status: Chronic (25) Aortic stenosis Code(s): I35.0 - NONRHEUMATIC AORTIC (VALVE) STENOSIS Status: Chronic Comment: severe (26) Bacteremia due to methicillin resistant Staphylococcus aureus Code(s): R78.81 - BACTEREMIA Status: Acute Comment: Suspect Infective endocarditis and /or Diskitis (27) Gangrene of toe of right foot Code(s): I96 - GANGRENE, NOT ELSEWHERE CLASSIFIED Status: Acute (28) Cavitary lesion of lung Code(s): J98.4 - OTHER DISORDERS OF LUNG Status: Chronic Comment: Op work up done at [facility] (29) UTI (urinary tract infection) Status: Acute (30) Hypokalemia Code(s): E87.6 - HYPOKALEMIA Status: Acute (31) Osteomyelitis of toe of right foot Code(s): M86.9 - OSTEOMYELITIS, UNSPECIFIED Status: Acute (32) Acute GI bleeding Code(s): K92.2 - GASTROINTESTINAL HEMORRHAGE, UNSPECIFIED Status: Acute (33) Anemia due to acute blood loss Code(s): D62 - ACUTE POSTHEMORRHAGIC ANEMIA Status: Acute (34) Hypomagnesemia Code(s): E83.42 - HYPOMAGNESEMIA Status: Acute (35) Hypotension Status: Acute - Plan cont current plan of care, bravo catheter, continue antibiotics, 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 Review of Systems - Review of Systems Constitutional: negative: fever, chills, sweats, weakness, malaise, other Eyes: negative: Pain, Vision Change, Conjunctivae Inflammation, Eyelid Inflammation, Redness, Other ENT: negative: Ear Pain, Ear Discharge, Nose Pain, Nose Discharge, Nose Congestion, Mouth Pain, Mouth Swelling, Throat Pain, Throat Swelling, Other Respiratory: negative: Cough, Dry, Shortness of Breath, Hemoptysis, SOB with Excertion, Pleuritic Pain, Sputum, Wheezing Cardiovascular: negative: chest pain, palpitations, orthopnea, paroxysmal nocturnal dyspnea, edema, light headedness, other Gastrointestinal: negative: Nausea, Vomiting, Abdominal Pain, Diarrhea, Constipation, Melena, Hematochezia, Other Genitourinary: negative: Dysuria, Frequency, Incontinence, Hematuria, Retention , Other Musculoskeletal: Back Pain. negative: Neck Pain, Shoulder Pain, Arm Pain, Hand Pain, Leg Pain, Foot Pain, Other - Medications/Allergies Allergies/Adverse Reactions: Allergies Allergy/AdvReac Type Severity Reaction Status Date / Time No Known Allergies Allergy Unverified 07/23/17 10:34 Medications: Current Medications Acetaminophen (Tylenol) 650 mg PO Q4H PRN PRN Reason: Headache/Fever or Pain Last Admin: 10/26/17 11:30 Dose: 650 mg Al Hydroxide/Mg Hydroxide (Maalox) 30 ml PO Q6H PRN PRN Reason: Heartburn or Indigestion Albuterol/Ipratropium (Duoneb) 3 ml NEB [id number] [facility] Last Admin: 10/27/17 07:04 Dose: 3 ml Amiodarone HCl (Cordarone) 200 mg PO BID [facility] Last Admin: 10/26/17 21:04 Dose: 200 mg Artificial Tears (Tears Naturale) 0 drop EA EYE PRN PRN PRN Reason: Dry Eyes Atorvastatin Calcium (Lipitor) 40 mg PO HS [facility] Last Admin: 10/26/17 21:04 Dose: 40 mg Budesonide (Pulmicort Neb Solution) 0.5 mg INH BID-RT [facility] Last Admin: 10/27/17 07:02 Dose: 0.5 mg Dextrose/Water (Dextrose 50%) 25 gm SLOW IVP PRN PRN PRN Reason: Hypoglycemia Digoxin (Lanoxin) 0.125 mg PO QAM [facility] Last Admin: 10/26/17 08:56 Dose: 0.125 mg Duloxetine HCl (Cymbalta) 30 mg PO DAILY [facility] Last Admin: 10/26/17 08:56 Dose: 30 mg Ferrous Sulfate (Feosol) 325 mg PO DAILY [facility] Last Admin: 10/26/17 08:57 Dose: 325 mg Gabapentin (Neurontin) 300 mg PO TID [facility] Last Admin: 10/26/17 21:04 Dose: 300 mg Glucagon (Glucagon) 1 mg IM PRN PRN PRN Reason: Hypoglycemia Guaifenesin (Robitussin Sf) 200 mg PO Q4H PRN PRN Reason: Cough Hydralazine HCl (Apresoline) 10 mg SLOW IVP Q4H PRN PRN Reason: Systolic BP > 180 Last Admin: 10/24/17 05:37 Dose: 10 mg Dextrose/Water (D5w) 1,000 mls @ 0 mls/hr IV .Q0M PRN; As Directed PRN Reason: Hypoglycemia Insulin Glargine 15 units/ (Miscellaneous Medication) 0.15 mls @ 0 mls/hr SC HS [facility] Last Admin: 10/26/17 21:04 Dose: 0.15 mls Insulin Glargine 15 units/ (Miscellaneous Medication) 0.15 mls @ 0 mls/hr SC QAM [facility] Last Admin: 10/26/17 08:52 Dose: 0.15 mls Sodium Chloride (Normal Saline 0.9%) 1,000 mls @ 80 mls/hr IV .[id number] [facility] Last Admin: 10/27/17 02:40 Dose: 1,000 mls Vancomycin HCl 1.5 gm/ Sodium (Chloride) 300 mls @ 200 mls/hr IVPB 0600 [facility] Last Admin: 10/27/17 05:24 Dose: 300 mls Insulin Human Lispro (Humalog) 0 units SC .MODERATE SLIDING SC PRN PRN Reason: Moderate Correctional Scale Last Admin: 10/26/17 17:21 Dose: 2 unit Insulin Human Lispro (Humalog) 0 units SC .BEDTIME SLIDING SC PRN PRN Reason: Bedtime Correctional Scale Last Admin: 10/22/17 22:30 Dose: 3 unit Labetalol HCl (Normodyne) 20 mg SLOW IVP Q4H PRN PRN Reason: Systolic BP > 180 Last Admin: 10/18/17 06:33 Dose: 20 mg Lactulose (Lactulose) 20 gm PO DAILYPRN PRN PRN Reason: Constipation Lactulose (Lactulose) 30 gm PO DAILY [facility] Last Admin: 10/26/17 08:52 Dose: 30 gm Levothyroxine Sodium (Synthroid) 175 mcg PO 0600 [facility] Last Admin: 10/27/17 05:24 Dose: 175 mcg Loperamide HCl (Imodium) 2 mg PO PRN PRN PRN Reason: Diarrhea/Loose Stools Loratadine (Claritin) 10 mg PO DAILYPRN PRN PRN Reason: Sinus Symptoms Magnesium Hydroxide (Milk Of Magnesium) 30 ml PO DAILYPRN PRN PRN Reason: Constipation Last Admin: 10/20/17 10:40 Dose: 30 ml Mineral Oil/White Petrolatum (Eucerin Cream) 0 gm TOP BIDPRN PRN PRN Reason: Dry Skin Miscellaneous Medication (Pharmacy To Dose) 1 each IVPB PRN PRN PRN Reason: Pharmacy to dose Nitroglycerin (Nitrostat) 0.4 mg SL Q5MIN PRN PRN Reason: Chest Pain Ondansetron HCl (Zofran Odt) 4 mg PO Q6H PRN PRN Reason: Nausea/Vomiting Ondansetron HCl (Zofran) 4 mg IVP Q6H PRN PRN Reason: Nausea/Vomiting Phenol (Chloraseptic [place] 180 Ml Bot) 0 ml PO PRN PRN PRN Reason: Sore Throat Phenyleph/Shark Oil/Merna Butter (Preparation H) 1 supp MS QIDPRN PRN PRN Reason: Hemorrhoids Last Admin: 10/21/17 03:05 Dose: 1 supp Potassium Chloride (K-Dur) 20 meq PO QAM-WM [facility] Last Admin: 10/26/17 08:57 Dose: 20 meq Saccharomyces Boulardii (Florastor) 250 mg PO DAILY [facility] Last Admin: 10/26/17 08:56 Dose: 250 mg Senna (Senokot) 2 tab PO HSPRN PRN PRN Reason: Constipation Last Admin: 10/20/17 20:49 Dose: 2 tab Sodium Chloride (Tyro Nasal [place] 0.65%) 0 ml EA NARE QIDPRN PRN PRN Reason: Nasal Congestion Sodium Chloride (Flush - Normal Saline) 10 ml IVF Q12HR [facility] Last Admin: 10/26/17 20:55 Dose: Not Given Sodium Chloride (Flush - Normal Saline) 10 ml IVF PRN PRN PRN Reason: Saline Flush Sodium Chloride (Flush - Normal Saline) 10 ml IVF PRN PRN PRN Reason: Saline Flush Thiamine HCl (Thiamine) 100 mg PO DAILY [facility] Last Admin: 10/26/17 08:56 Dose: 100 mg Trazodone HCl (Desyrel) 100 mg PO HS PRN PRN Reason: Insomnia Last Admin: 10/26/17 00:14 Dose: 100 mg
[2017-10-27] MEDS: Potassium Chloride 20 MEQ TAB PO SCH (09:01)
[2017-10-27] MEDS: Digoxin 0.125 MG TAB PO SCH (09:01)
[2017-10-27] MEDS: Amiodarone 200 MG TAB PO SCH ×2 (09:01→20:27)
[2017-10-27] MEDS: Ferrous Sulfate 325 MG TAB PO SCH (09:02)
[2017-10-27] MEDS: DULoxetine 30 MG CAP PO SCH (09:02)
[2017-10-27] MEDS: Gabapentin 300 MG CAP PO SCH ×3 (09:02→20:27)
[2017-10-27] MEDS: Insulin Glargine 15 UNITS in Pre-Filled Syringe 1 EACH SC SCH ×2 (09:02→20:28)
[2017-10-27] MEDS: Saccharomyces boulardii 250 MG CAP PO SCH (09:04)
--- NOTE | 2017-10-27 15:43 | PRG ---
DATE OF SERVICE: 10/27/2017 SUBJECTIVE: Mr. Cruz has been tolerating a solid diet well. He has no abdominal pain. He has had no bowel movement since colonoscopy. OBJECTIVE: VITAL SIGNS: Temperature 99.4, pulse 68, oxygen saturation 92% on room air, blood pressure 115/62. GENERAL: He is in no acute distress, awake and alert. LUNGS: Clear to auscultation bilaterally. HEART: Regular rate and rhythm. ABDOMEN: Soft, nontender, nondistended. Bowel sounds are present. EXTREMITIES: No lower extremity edema. IMPRESSION: 1. Lower gastrointestinal bleed, appears to have been a diverticular bleed. This is resolved at thi s time. He did receive blood transfusion x6 units. The bleeding appears to be stopped for now. 2. History of cirrhosis. 3. Chronic obstructive pulmonary disease and coronary artery disease. 4. He is on antibiotics for presumed endocarditis. RECOMMENDATIONS: He is on antibiotics and will otherwise continue supportive care from a liver stand point. He is tolerating a regular diet. He has had no further GI bleeding.
--- NOTE | 2017-10-27 16:20 | PRG ---
DATE OF SERVICE: 10/27/2017 SUBJECTIVE: Mr. Cruz was hard to arouse, but once he got focused, he was able to answer questions. OBJECTIVE: VITAL SIGNS: He is afebrile, heart rate 90, respiratory rate 18, oximetry is 92 on room air. LUNGS: He had rhonchi on initial exam once he coughed a few times. Lungs cleared up. HEART: Regular rhythm. ABDOMEN: Soft. He still has a systolic murmur. LABORATORY DATA: White count is 8.8, hemoglobin 7.8, platelets 218. Sodium 131, potassium 4.2, chlo ride 106, bicarbonate 20, BUN 8, creatinine 1.16. IMPRESSION: 1. Left colon bleeding, status post lower endoscopy, likely diverticular. He was transfused 6 units packed cells, not bleeding now. 2. History of liver dysfunction. 3. Chronic obstructive pulmonary disease. 4. Coronary artery disease. 5. Aortic stenosis. 6. Peripheral vascular disease. 7. Deconditioning. He has not been up in a chair in many days. He really needs to be up in a chair every day and continue to follow.
[2017-10-27] MEDS: Atorvastatin Calcium 40 MG TAB PO SCH (20:27)
[2017-10-28 00:39] LABS: Hemoglobin 6.7 g/dL (14.0-18.0)
--- NOTE | 2017-10-28 00:57 | PDOC.EVN ---
Event Note - Event Note Event Note: pt had episode of passing blood , h/h has dropped , we will transfuse, hemodynamically stable at this point, we will monitor, pt had similar episode in the past had work up , will need to be follow up by gi, will treat accordingly depending on pt clinical course.
[2017-10-28] MEDS ORDERED: Pantoprazole 40 MG VIAL IVP SCH (01:15)
[2017-10-28] MEDS: Levothyroxine 175 MCG TAB PO SCH (05:56)
[2017-10-28] MEDS: Budesonide 0.5 MG/2 ML NEB INH SCH ×2 (06:13→18:44)
[2017-10-28] MEDS: Vancomycin HCl 1.5 GM in Sodium Chloride 0.9% 250 ML 300 ML IVPB SCH (06:24)
--- NOTE | 2017-10-28 06:46 | PRG ---
DATE OF SERVICE: 10/28/2017 Mr. Curz is receiving blood again today, He is resting comfortably. PHYSICAL EXAMINATION: VITAL SIGNS: He is afebrile, heart rate 92, respiratory rate 16, O2 sat 96 on 2 liters, blood pressu re 148/69. LUNGS: His lungs are clear. HEART: Regular rhythm. ABDOMEN: Abdomen soft. His hemoglobin dropped to 6.7 this morning. IMPRESSION: 1. Diverticular bleed. 2. Probable endocarditis. 3. Coronary artery disease. Surgery was deferred because of many complicated medical problems that are chronic. 4. History of liver dysfunction and reported cirrhosis, but no varices on endoscopy at the end of . 5. Status post colonoscopy showing left colon blood loss starting at the sigmoid colon, felt to be d iverticular. 6. Severe aortic stenosis. 7. Status post amputation of multiple lower extremity digits. 8. Chronic obstructive pulmonary disease. It has been surprisingly stable. 9. [facility] This is not a clinical issue at thi s time. 10. Deconditioning, needs to be up in a chair every day. PLAN: Continue with supportive care. Unfortunately, he is nowhere near a point where he can be disc harged.
[2017-10-28] MEDS: Insulin Glargine 15 UNITS in Pre-Filled Syringe 1 EACH SC SCH ×2 (09:41→20:51)
[2017-10-28] MEDS: Potassium Chloride 20 MEQ TAB PO SCH (09:45)
[2017-10-28] MEDS: Amiodarone 200 MG TAB PO SCH ×2 (09:45→20:06)
[2017-10-28] MEDS: Gabapentin 300 MG CAP PO SCH ×3 (09:46→20:06)
[2017-10-28] MEDS: Saccharomyces boulardii 250 MG CAP PO SCH (09:46)
[2017-10-28] MEDS: DULoxetine 30 MG CAP PO SCH (09:46)
[2017-10-28] MEDS: Ferrous Sulfate 325 MG TAB PO SCH (09:46)
--- NOTE | 2017-10-28 09:46 | PDOC.PN ---
- Subjective Encounter Start Date: 10/28/17 Encounter Start Time: 07:10 today his Hb dropped again and he was given 2 unit PRBC. - Objective Resuscitation Status: Resuscitation Status DNR:Do Not Resuscitate MAR Reviewed: Yes Vital Signs & Weight: Vital Signs (12 hours) Temp Pulse Pulse Resp BP BP BP 10/28/17 07:12 75 20 126/76 10/28/17 06:13 92 16 10/28/17 04:33 99 F 83 20 148/69 H 10/28/17 04:27 99.0 F 81 18 123/66 10/28/17 01:38 99.5 F 93 20 104/59 L 10/27/17 23:34 99.6 F 88 12 113/59 L 10/27/17 23:32 88 12 Pulse Ox 10/28/17 07:12 97 10/28/17 06:13 96 10/28/17 04:33 99 10/28/17 04:27 97 10/28/17 01:38 93 L 10/27/17 23:34 100 10/27/17 23:32 96 Weight Admit Weight 177 lb 0.499 oz Weight 207 lb 4.8 oz Most Recent Monitor Data Heart Rate from ECG 74 NIBP 110/67 NIBP BP-Mean 83 Respiration from ECG 17 SpO2 97 I&O: 10/27/17 10/28/17 10/29/17 06:59 06:59 06:59 Intake Total 2320 1790 350 Output Total 1150 1625 Balance 1170 165 350 Result Diagrams: 10/28/17 00:15 10/27/17 06:43 Additional Labs: Accuchecks 10/28/17 10/27/17 10/27/17 06:29 20:30 16:28 POC Glucose 142 H 137 H 163 H 10/27/17 11:20 POC Glucose 161 H EKG Reviewed by me: Yes (nsr) Phys Exam - Physical Examination Constitutional: NAD HEENT: PERRLA, moist MMs, sclera anicteric Neck: no JVD, supple Respiratory: no wheezing, no rales, no rhonchi Cardiovascular: no rub SM+ Gastrointestinal: soft, non-tender, no distention, positive bowel sounds Musculoskeletal: no edema, pulses present Neurological: non-focal, moves all 4 limbs Lymphatic: no nodes Psychiatric: normal affect Skin: no rash, normal turgor Dx/Plan (1) Acute kidney failure Status: Resolved (2) Atrial fibrillation with rapid ventricular response Code(s): I48.91 - UNSPECIFIED ATRIAL FIBRILLATION Status: Acute Comment: controlled, now nsr, on oral amiodaron, not a candidate for chronic anticoagulation due to GI bleeding (3) Demand ischemia of myocardium Code(s): I24.8 - OTHER FORMS OF ACUTE ISCHEMIC HEART DISEASE Status: Acute (4) Hematuria, gross Status: Resolved Comment: s/p Vir[place]ontes by urology w dorsal slit (5) Hyponatremia Code(s): E87.1 - HYPO-OSMOLALITY AND HYPONATREMIA Status: Resolved (6) Lactic acidosis Code(s): E87.2 - ACIDOSIS Status: Resolved (7) Sepsis with acute organ dysfunction Code(s): A41.9 - SEPSIS, UNSPECIFIED ORGANISM; R65.20 - SEVERE SEPSIS WITHOUT SEPTIC SHOCK Status: Resolved (8) Splenic infarct Code(s): D73.5 - INFARCTION OF SPLEEN Status: Acute Comment: ? septic embolization (9) 3-vessel CAD Status: Chronic (10) Alcoholic cirrhosis of liver Code(s): K70.30 - ALCOHOLIC CIRRHOSIS OF LIVER WITHOUT ASCITES Status: Chronic Qualifiers: Ascites presence: without ascites Qualified Code(s): K70.30 - Alcoholic cirrhosis of liver without ascites (11) Anemia, macrocytic Code(s): D53.9 - NUTRITIONAL ANEMIA, UNSPECIFIED Status: Chronic (12) Anxiety and depression Code(s): F41.9 - ANXIETY DISORDER, UNSPECIFIED; F32.9 - MAJOR DEPRESSIVE DISORDER, SINGLE EPISODE, UNSPECIFIED Status: Chronic (13) COPD (chronic obstructive pulmonary disease) Status: Chronic (14) Chronic combined systolic and diastolic CHF (congestive heart failure) Code(s): I50.42 - CHRONIC COMBINED SYSTOLIC AND DIASTOLIC HRT FAIL Status: Chronic Comment: Compensated for now (15) DM type 2 (diabetes mellitus, type 2) Status: Chronic Qualifiers: Diabetes mellitus custodial insulin use: with 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 Diabetes mellitus complication status: without complication Qualified Code(s): E11.9 - Type 2 diabetes mellitus without complications; Z79.4 - [employer]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; 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.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; Z79.4 - [employer] ( 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; Z79.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 (16) Dyslipidemia Code(s): E78.5 - HYPERLIPIDEMIA, UNSPECIFIED Status: Chronic (17) GERD (gastroesophageal reflux disease) Code(s): K21.9 - GASTRO-ESOPHAGEAL REFLUX DISEASE WITHOUT ESOPHAGITIS Status: Chronic (18) HTN (hypertension) Code(s): I10 - ESSENTIAL (PRIMARY) HYPERTENSION Status: Chronic (19) Hypoalbuminemia due to protein-calorie malnutrition Code(s): E46 - UNSPECIFIED PROTEIN-CALORIE MALNUTRITION Status: Chronic (20) Hypothyroidism Code(s): E03.9 - HYPOTHYROIDISM, UNSPECIFIED Status: Chronic (21) PVD (peripheral vascular disease) Code(s): I73.9 - PERIPHERAL VASCULAR DISEASE, UNSPECIFIED Status: Chronic (22) Protein-calorie malnutrition, moderate Code(s): E44.0 - MODERATE PROTEIN-CALORIE MALNUTRITION Status: Chronic (23) Thrombocytopenia Code(s): D69.6 - THROMBOCYTOPENIA, UNSPECIFIED Status: Chronic (24) Tobacco abuse Code(s): Z72.0 - TOBACCO USE Status: Chronic (25) Aortic stenosis Code(s): I35.0 - NONRHEUMATIC AORTIC (VALVE) STENOSIS Status: Chronic Comment: severe (26) Bacteremia due to methicillin resistant Staphylococcus aureus Code(s): R78.81 - BACTEREMIA Status: Acute Comment: Suspect Infective endocarditis and /or Diskitis (27) Gangrene of toe of right foot Code(s): I96 - GANGRENE, NOT ELSEWHERE CLASSIFIED Status: Acute (28) Cavitary lesion of lung Code(s): J98.4 - OTHER DISORDERS OF LUNG Status: Chronic Comment: Op work up done at [place] (29) UTI (urinary tract infection) Status: Acute (30) Hypokalemia Code(s): E87.6 - HYPOKALEMIA Status: Acute (31) Osteomyelitis of toe of right foot Code(s): M86.9 - OSTEOMYELITIS, UNSPECIFIED Status: Acute (32) Acute GI bleeding Code(s): K92.2 - GASTROINTESTINAL HEMORRHAGE, UNSPECIFIED Status: Acute (33) Anemia due to acute blood loss Code(s): D62 - ACUTE POSTHEMORRHAGIC ANEMIA Status: Acute (34) Hypomagnesemia Code(s): E83.42 - HYPOMAGNESEMIA Status: Acute (35) Hypotension Status: Acute - Plan cont current plan of care, continue antibiotics, group social worker * so far 7 unit PRBC given, and as per my talk with GI, he now needs surgical intervention but he is very high risk for surgery as well * continue vancomycin * we can try MRI spine if possible today * his condition is not stable yet as he has recurrent drop in Hb and BP * prognosis is guarded. * he is not on anticoagulant due to active GI bleeding Review of Systems - Review of Systems Constitutional: weakness. negative: fever, chills, sweats, malaise, other Eyes: negative: Pain, Vision Change, Conjunctivae Inflammation, Eyelid Inflammation, Redness, Other ENT: negative: Ear Pain, Ear Discharge, Nose Pain, Nose Discharge, Nose Congestion, Mouth Pain, Mouth Swelling, Throat Pain, Throat Swelling, Other Respiratory: negative: Cough, Dry, Shortness of Breath, Hemoptysis, SOB with Excertion, Pleuritic Pain, Sputum, Wheezing Cardiovascular: negative: chest pain, palpitations, orthopnea, paroxysmal nocturnal dyspnea, edema, light headedness, other Gastrointestinal: Hematochezia. negative: Nausea, Vomiting, Abdominal Pain, Diarrhea, Constipation, Melena, Other Genitourinary: negative: Dysuria, Frequency, Incontinence, Hematuria, Retention , Other Musculoskeletal: Back Pain. negative: Neck Pain, Shoulder Pain, Arm Pain, Hand Pain, Leg Pain, Foot Pain, Other - Medications/Allergies Allergies/Adverse Reactions: Allergies Allergy/AdvReac Type Severity Reaction Status Date / Time No Known Allergies Allergy Unverified 07/23/17 10:34 Medications: Current Medications Acetaminophen (Tylenol) 650 mg PO Q4H PRN PRN Reason: Headache/Fever or Pain Last Admin: 10/26/17 11:30 Dose: 650 mg Al Hydroxide/Mg Hydroxide (Maalox) 30 ml PO Q6H PRN PRN Reason: Heartburn or Indigestion Albuterol/Ipratropium (Duoneb) 3 ml NEB [id number] [facility] Last Admin: 10/28/17 06:13 Dose: 3 ml Amiodarone HCl (Cordarone) 200 mg PO BID [facility] Last Admin: 10/27/17 20:27 Dose: 200 mg Artificial Tears (Tears Naturale) 0 drop EA EYE PRN PRN PRN Reason: Dry Eyes Atorvastatin Calcium (Lipitor) 40 mg PO HS [facility] Last Admin: 10/27/17 20:27 Dose: 40 mg Budesonide (Pulmicort Neb Solution) 0.5 mg INH BID-RT [facility] Last Admin: 10/28/17 06:13 Dose: 0.5 mg Dextrose/Water (Dextrose 50%) 25 gm SLOW IVP PRN PRN PRN Reason: Hypoglycemia [facility]) [facility] Last Admin: 10/27/17 09:01 Dose: 0.125 mg Duloxetine HCl (Cymbalta) 30 mg PO DAILY [facility] Last Admin: 10/27/17 09:02 Dose: 30 mg Ferrous Sulfate (Feosol) 325 mg PO DAILY [facility] Last Admin: 10/27/17 09:02 Dose: 325 mg Gabapentin (Neurontin) 300 mg PO TID [facility] Last Admin: 10/27/17 20:27 Dose: 300 mg Glucagon (Glucagon) 1 mg IM PRN PRN PRN Reason: Hypoglycemia Guaifenesin (Robitussin Sf) 200 mg PO Q4H PRN PRN Reason: Cough Hydralazine HCl (Apresoline) 10 mg SLOW IVP Q4H PRN PRN Reason: Systolic BP > 180 Last Admin: 10/24/17 05:37 Dose: 10 mg Dextrose/Water (D5w) 1,000 mls @ 0 mls/hr IV .Q0M PRN; As Directed PRN Reason: Hypoglycemia Insulin Glargine 15 units/ (Miscellaneous Medication) 0.15 mls @ 0 mls/hr SC [facility] Last Admin: 10/27/17 20:28 Dose: 0.15 mls Insulin Glargine 15 units/ (Miscellaneous Medication) 0.15 mls @ 0 mls/hr [facility] [place] Last Admin: 10/27/17 09:02 Dose: 0.15 mls Sodium Chloride (Normal Saline 0.9%) 1,000 mls @ 80 mls/hr IV .[id number] [facility] Last Admin: 10/27/17 17:10 Dose: 1,000 mls Vancomycin HCl 1.5 gm/ Sodium (Chloride) 300 mls @ 200 mls/hr IVPB 0600 [facility] Last Admin: 10/28/17 06:24 Dose: 300 mls Insulin Human Lispro (Humalog) 0 units SC .MODERATE SLIDING SC PRN PRN Reason: Moderate Correctional Scale Last Admin: 10/26/17 17:21 Dose: 2 unit Insulin Human Lispro (Humalog) 0 units SC .BEDTIME SLIDING SC PRN PRN Reason: Bedtime Correctional Scale Last Admin: 10/22/17 22:30 Dose: 3 unit Labetalol HCl (Normodyne) 20 mg SLOW IVP Q4H PRN PRN Reason: Systolic BP > 180 Last Admin: 10/18/17 06:33 Dose: 20 mg Lactulose (Lactulose) 20 gm PO DAILYPRN PRN PRN Reason: Constipation Lactulose (Lactulose) 30 gm PO DAILY [facility] Last Admin: 10/27/17 09:04 Dose: 30 gm Levothyroxine Sodium (Synthroid) 175 mcg PO 0600 [facility] Last Admin: 10/28/17 05:56 Dose: 175 mcg Loperamide HCl (Imodium) 2 mg PO PRN PRN PRN Reason: Diarrhea/Loose Stools Loratadine (Claritin) 10 mg PO DAILYPRN PRN PRN Reason: Sinus Symptoms Magnesium Hydroxide (Milk Of Magnesium) 30 ml PO DAILYPRN PRN PRN Reason: Constipation Last Admin: 10/20/17 10:40 Dose: 30 ml Mineral Oil/White Petrolatum (Eucerin Cream) 0 gm TOP BIDPRN PRN PRN Reason: Dry Skin Miscellaneous Medication (Pharmacy To Dose) 1 each IVPB PRN PRN PRN Reason: Pharmacy to dose Nitroglycerin (Nitrostat) 0.4 mg SL Q5MIN PRN PRN Reason: Chest Pain Ondansetron HCl (Zofran Odt) 4 mg PO Q6H PRN PRN Reason: Nausea/Vomiting Ondansetron HCl (Zofran) 4 mg IVP Q6H PRN PRN Reason: Nausea/Vomiting Pantoprazole Sodium (Protonix) 40 mg IVP DAILY [facility] Phenol (Chloraseptic [place] 180 Ml Bot) 0 ml PO PRN PRN PRN Reason: Sore Throat Phenyleph/Shark Oil/[place] Butter (Preparation H) 1 supp DC QIDPRN PRN PRN Reason: Hemorrhoids Last Admin: 10/21/17 03:05 Dose: 1 supp Potassium Chloride (K-Dur) 20 meq PO [facility] Last Admin: 10/27/17 09:01 Dose: 20 meq Saccharomyces Boulardii (Florastor) 250 mg PO DAILY [facility] Last Admin: 10/27/17 09:04 Dose: 250 mg Senna (Senokot) 2 tab PO HSPRN PRN PRN Reason: Constipation Last Admin: 10/20/17 20:49 Dose: 2 tab Sodium Chloride (Keith Nasal [place] 0.65%) 0 ml EA NARE QIDPRN PRN PRN Reason: Nasal Congestion Sodium Chloride (Flush - Normal Saline) 10 ml IVF Q12HR [facility] Last Admin: 10/27/17 22:54 Dose: Not Given Sodium Chloride (Flush - Normal Saline) 10 ml IVF PRN PRN PRN Reason: Saline Flush Sodium Chloride (Flush - Normal Saline) 10 ml IVF PRN PRN PRN Reason: Saline Flush Thiamine HCl (Thiamine) 100 mg PO DAILY [facility] Last Admin: 10/27/17 09:04 Dose: 100 mg Trazodone HCl (Desyrel) 100 mg PO HS PRN PRN Reason: Insomnia Last Admin: 10/26/17 00:14 Dose: 100 mg
[2017-10-28] MEDS: Digoxin 0.125 MG TAB PO SCH (09:48)
[2017-10-28] MEDS: Pantoprazole 40 MG VIAL IVP SCH (09:48)
[2017-10-28 10:21] LABS: Hemoglobin 8.6 g/dL (14.0-18.0)
[2017-10-28] MEDS: Acetaminophen 325 MG TAB PO PRN (11:16)
[2017-10-28] MEDS: HumaLOG 300 UNITS/3 ML VIAL SC PRN ×2 (11:37→16:42)
[2017-10-28] MEDS: Sodium Chloride 0.9% 1,000 ML IV SCH (13:06)
[2017-10-28 18:41] LABS: Hemoglobin 8.2 g/dL (14.0-18.0)
[2017-10-28] MEDS: Atorvastatin Calcium 40 MG TAB PO SCH (20:06)
[2017-10-29 00:25] LABS: Hemoglobin 7.3 g/dL (14.0-18.0)
[2017-10-29] MEDS: Sodium Chloride 0.9% 1,000 ML IV SCH ×2 (01:51→13:07)
[2017-10-29] MEDS: Levothyroxine 175 MCG TAB PO SCH (05:26)
[2017-10-29] MEDS: Vancomycin HCl 1.5 GM in Sodium Chloride 0.9% 250 ML 300 ML IVPB SCH ×2 (05:26→05:40)
[2017-10-29 05:38] LABS: Vancomycin, Trough 25.8 ug/mL
[2017-10-29] MEDS: Acetaminophen 325 MG TAB PO PRN ×2 (06:19→13:18)
[2017-10-29] MEDS: Budesonide 0.5 MG/2 ML NEB INH SCH ×2 (06:21→18:56)
[2017-10-29 07:20] LABS: #Lymphocytes 0.8 thou/uL (1.20-3.40); #Monocytes 0.6 thou/uL (0.11-0.59); #Neutrophils 4.9 thou/uL (1.40-6.50); %Basophils 0.4 % (0.0-1.0); %Eosinophils 0.7 % (0.0-10.0); %Lymphocytes 12.7 % (21.0-51.0); %Monocytes 8.8 % (0.0-10.0); %Neutrophils 77.5 % (42.0-75.0); Hemoglobin 7.3 g/dL (14.0-18.0); Mean Corpuscular HGB CONC 34.6 g/dL (32.0-36.0); Mean Corpuscular Hemoglobin 32.3 pg (27.0-31.0); Mean Corpuscular Volume 93.4 fL (78.0-98.0); Mean Platelet Volume 7.1 fL (7.4-10.4); Platelet Count 157 thou/uL (130-400); RBC Distribution Width 14.7 % (11.5-14.5); Red Blood Cell (RBC) Count 2.25 mill/uL (4.70-6.10); White Blood Cell (WBC) Count 6.3 thou/uL (4.8-10.8)
[2017-10-29 07:29] LABS: Anion Gap 7 mmol/L (10-20); BUN (Urea Nitrogen) 8 mg/dL (8.4-25.7); Calc. Creatinine Clearance 92 mL/min (70-130); Calcium 7.6 mg/dL (7.8-10.44); Carbon Dioxide 23 mmol/L (23-31); Chloride 106 mmol/L (98-107); Estimated GFR-MDRD 76; Glucose 167 mg/dL (83-110); Potassium 4.3 mmol/L (3.5-5.1); Sodium 132 mmol/L (136-145)
[2017-10-29] MEDS: Potassium Chloride 20 MEQ TAB PO SCH (08:12)
[2017-10-29] MEDS: Amiodarone 200 MG TAB PO SCH ×2 (08:12→21:06)
[2017-10-29] MEDS: Saccharomyces boulardii 250 MG CAP PO SCH (08:13)
[2017-10-29] MEDS: Gabapentin 300 MG CAP PO SCH ×3 (08:13→21:06)
[2017-10-29] MEDS: Ferrous Sulfate 325 MG TAB PO SCH (08:13)
[2017-10-29] MEDS: Pantoprazole 40 MG VIAL IVP SCH (08:13)
[2017-10-29] MEDS: DULoxetine 30 MG CAP PO SCH (08:13)
[2017-10-29] MEDS: Insulin Glargine 15 UNITS in Pre-Filled Syringe 1 EACH SC SCH ×2 (08:15→21:10)
[2017-10-29] MEDS: Digoxin 0.125 MG TAB PO SCH (08:19)
--- NOTE | 2017-10-29 10:16 | PRG ---
DATE OF SERVICE: 10/29/2017 The patient is complaining of pain, but otherwise seems to be doing well. PHYSICAL EXAMINATION: VITAL SIGNS: Temperature 99.5, pulse 84, blood pressure 142/71, O2 sat 94%. HEENT: Unremarkable. NECK: No JVD. CARDIAC: S1, S2 muffled by a 3/6 systolic murmur. ABDOMEN: Soft, nontender. EXTREMITIES: No edema. LABORATORY DATA: Sodium 132, potassium 4.3, chloride 106.2, CO2 23, BUN 8, creatinine 0.9, glucose 1 67, calcium 7.6. White blood cell count 6.3, hemoglobin 7.3, hematocrit 21.0, platelet count 157. ASSESSMENT: 1. Status post diverticular bleed. 2. Probable endocarditis. 3. Coronary artery disease. 4. History of liver dysfunction. 5. Severe aortic stenosis. 6. Chronic obstructive pulmonary disease. 7. Pulmonary nodules. PLAN: The patient is continuing IV antibiotics. Ultimately, the duration of therapy needs to be det ermined. He is severely deconditioned. Ultimately might benefit from LTAC placement if he qualifies .
--- NOTE | 2017-10-29 10:32 | PDOC.PN ---
- Subjective Encounter Start Date: 10/29/17 Encounter Start Time: 07:30 he has back pain, he is very weak, no fever, stable H & H today - Objective Resuscitation Status: Resuscitation Status DNR:Do Not Resuscitate MAR Reviewed: Yes Vital Signs & Weight: Vital Signs (12 hours) Temp Pulse Resp BP Pulse Ox 10/29/17 08:19 84 10/29/17 08:06 98.5 F 84 16 142/71 H 94 L 10/29/17 08:00 98.5 F 84 16 10/29/17 06:21 85 16 93 L 10/29/17 04:00 97.5 F L 78 20 154/72 H 94 L 10/29/17 00:00 99.0 F 73 20 143/63 H 93 L Weight Admit Weight 177 lb 0.499 oz Weight 208 lb 12.8 oz Most Recent Monitor Data Heart Rate from ECG 74 NIBP 110/67 NIBP BP-Mean 83 Respiration from ECG 17 SpO2 97 I&O: 10/28/17 10/29/17 10/30/17 06:59 06:59 06:59 Intake Total 1790 8851 Output Total 1625 2550 Balance 165 6301 Result Diagrams: 10/29/17 04:53 10/29/17 04:53 Additional Labs: Accuchecks 10/29/17 10/28/17 10/28/17 05:51 20:31 16:09 POC Glucose 178 H 207 H 240 H 10/28/17 11:02 POC Glucose 202 H EKG Reviewed by me: Yes (nsr) Phys Exam - Physical Examination Constitutional: NAD HEENT: PERRLA, moist MMs, sclera anicteric Neck: no JVD, supple Respiratory: no wheezing, no rales, no rhonchi Cardiovascular: RRR, no rub SM+ Gastrointestinal: soft, non-tender, no distention, positive bowel sounds Musculoskeletal: no edema, pulses present Neurological: moves all 4 limbs Lymphatic: no nodes Psychiatric: normal affect Skin: no rash, normal turgor Dx/Plan (1) Acute kidney failure Status: Resolved (2) Atrial fibrillation with rapid ventricular response Code(s): I48.91 - UNSPECIFIED ATRIAL FIBRILLATION Status: Acute Comment: controlled, now nsr, on oral amiodaron, not a candidate for chronic anticoagulation due to GI bleeding (3) Demand ischemia of myocardium Code(s): I24.8 - OTHER FORMS OF ACUTE ISCHEMIC HEART DISEASE Status: Acute (4) Hematuria, gross Status: Resolved Comment: s/p Viramontes by urology w dorsal slit (5) Hyponatremia Code(s): E87.1 - HYPO-OSMOLALITY AND HYPONATREMIA Status: Resolved (6) Lactic acidosis Code(s): E87.2 - ACIDOSIS Status: Resolved (7) Sepsis with acute organ dysfunction Code(s): A41.9 - SEPSIS, UNSPECIFIED ORGANISM; R65.20 - SEVERE SEPSIS WITHOUT SEPTIC SHOCK Status: Resolved (8) Splenic infarct Code(s): D73.5 - INFARCTION OF SPLEEN Status: Acute Comment: ? septic embolization (9) 3-vessel CAD Status: Chronic (10) Alcoholic cirrhosis of liver Code(s): K70.30 - ALCOHOLIC CIRRHOSIS OF LIVER WITHOUT ASCITES Status: Chronic Qualifiers: Ascites presence: without ascites Qualified Code(s): K70.30 - Alcoholic cirrhosis of liver without ascites (11) Anemia, macrocytic Code(s): D53.9 - NUTRITIONAL ANEMIA, UNSPECIFIED Status: Chronic (12) Anxiety and depression Code(s): F41.9 - ANXIETY DISORDER, UNSPECIFIED; F32.9 - MAJOR DEPRESSIVE DISORDER, SINGLE EPISODE, UNSPECIFIED Status: Chronic (13) COPD (chronic obstructive pulmonary disease) Status: Chronic (14) Chronic combined systolic and diastolic CHF (congestive heart failure) Code(s): I50.42 - CHRONIC COMBINED SYSTOLIC AND DIASTOLIC HRT FAIL Status: Chronic Comment: Compensated for now (15) DM type 2 (diabetes mellitus, type 2) Status: Chronic Qualifiers: Diabetes mellitus alf insulin use: with alf use Diabetes mellitus complication status: without complication Qualified Code(s): E11.9 - Type 2 diabetes mellitus without complications; 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.4 - 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 engineer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; Z79.4 - 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 engineer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; Z79.4 - [facility] ( 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; Z79.4 - 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 engineer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 (16) Dyslipidemia Code(s): E78.5 - HYPERLIPIDEMIA, UNSPECIFIED Status: Chronic (17) GERD (gastroesophageal reflux disease) Code(s): K21.9 - GASTRO-ESOPHAGEAL REFLUX DISEASE WITHOUT ESOPHAGITIS Status: Chronic (18) HTN (hypertension) Code(s): I10 - ESSENTIAL (PRIMARY) HYPERTENSION Status: Chronic (19) Hypoalbuminemia due to protein-calorie malnutrition Code(s): E46 - UNSPECIFIED PROTEIN-CALORIE MALNUTRITION Status: Chronic (20) Hypothyroidism Code(s): E03.9 - HYPOTHYROIDISM, UNSPECIFIED Status: Chronic (21) PVD (peripheral vascular disease) Code(s): I73.9 - PERIPHERAL VASCULAR DISEASE, UNSPECIFIED Status: Chronic (22) Protein-calorie malnutrition, moderate Code(s): E44.0 - MODERATE PROTEIN-CALORIE MALNUTRITION Status: Chronic (23) Thrombocytopenia Code(s): D69.6 - THROMBOCYTOPENIA, UNSPECIFIED Status: Chronic (24) Tobacco abuse Code(s): Z72.0 - TOBACCO USE Status: Chronic (25) Aortic stenosis Code(s): I35.0 - NONRHEUMATIC AORTIC (VALVE) STENOSIS Status: Chronic Comment: severe (26) Bacteremia due to methicillin resistant Staphylococcus aureus Code(s): R78.81 - BACTEREMIA Status: Acute Comment: Suspect Infective endocarditis and /or Diskitis (27) Gangrene of toe of right foot Code(s): I96 - GANGRENE, NOT ELSEWHERE CLASSIFIED Status: Acute (28) Cavitary lesion of lung Code(s): J98.4 - OTHER DISORDERS OF LUNG Status: Chronic Comment: Op work up done [place] (29) UTI (urinary tract infection) Status: Acute (30) Hypokalemia Code(s): E87.6 - HYPOKALEMIA Status: Acute (31) Osteomyelitis of toe of right foot Code(s): M86.9 - OSTEOMYELITIS, UNSPECIFIED Status: Acute (32) Acute GI bleeding Code(s): K92.2 - GASTROINTESTINAL HEMORRHAGE, UNSPECIFIED Status: Acute (33) Anemia due to acute blood loss Code(s): D62 - ACUTE POSTHEMORRHAGIC ANEMIA Status: Acute (34) Hypomagnesemia Code(s): E83.42 - HYPOMAGNESEMIA Status: Acute (35) Hypotension Status: Acute - Plan cont current plan of care, continue antibiotics, PT/OT, social insurance adviser * dr knutson to decide if still MRI LS , CS and [place] is needed or not or just to continue to treat presumely as if IE or discitis/OM of spine * will need picc line for iv antibiotics * he will need placement * pain control * monitor h & h * medication reviewed as below * symptomatic treatment. * will start discharge planning * i spoke with dr knutson who prefer to get MRI if possible, will try today, spoke to nursing Review of Systems - Review of Systems Constitutional: weakness. negative: fever, chills, sweats, malaise, other ENT: negative: Ear Pain, Ear Discharge, Nose Pain, Nose Discharge, Nose Congestion, Mouth Pain, Mouth Swelling, Throat Pain, Throat Swelling, Other Respiratory: negative: Cough, Dry, Shortness of Breath, Hemoptysis, SOB with Excertion, Pleuritic Pain, Sputum, Wheezing Cardiovascular: negative: chest pain, palpitations, orthopnea, paroxysmal nocturnal dyspnea, edema, light headedness, other Gastrointestinal: negative: Nausea, Vomiting, Abdominal Pain, Diarrhea, Constipation, Melena, Hematochezia, Other Genitourinary: negative: Dysuria, Frequency, Incontinence, Hematuria, Retention , Other Musculoskeletal: Back Pain. negative: Neck Pain, Shoulder Pain, Arm Pain, Hand Pain, Leg Pain, Foot Pain, Other Skin: negative: Rash, Lesions, Arnoldo, Bruising, Other - Medications/Allergies Allergies/Adverse Reactions: Allergies Allergy/AdvReac Type Severity Reaction Status Date / Time No Known Allergies Allergy Unverified 07/23/17 10:34 Medications: Current Medications Acetaminophen (Tylenol) 650 mg PO Q4H PRN PRN Reason: Headache/Fever or Pain Last Admin: 10/29/17 06:19 Dose: 650 mg Al Hydroxide/Mg Hydroxide (Maalox) 30 ml PO Q6H PRN PRN Reason: Heartburn or Indigestion Albuterol/Ipratropium (Duoneb) 3 ml NEB [id number] [facility] Last Admin: 10/29/17 06:21 Dose: 3 ml Amiodarone HCl (Cordarone) 200 mg PO BID [facility] Last Admin: 10/29/17 08:12 Dose: 200 mg Artificial Tears (Tears Naturale) 0 drop EA EYE PRN PRN PRN Reason: Dry Eyes Atorvastatin Calcium (Lipitor) 40 mg PO HS [facility] Last Admin: 10/28/17 20:06 Dose: 40 mg Budesonide (Pulmicort Neb Solution) 0.5 mg INH BID-RT [facility] Last Admin: 10/29/17 06:21 Dose: 0.5 mg Dextrose/Water (Dextrose 50%) 25 gm SLOW IVP PRN PRN PRN Reason: Hypoglycemia Digoxin (Lanoxin) 0.125 mg PO QAM [facility] Last Admin: 10/29/17 08:19 Dose: 0.125 mg Duloxetine HCl (Cymbalta) 30 mg PO DAILY [facility] Last Admin: 10/29/17 08:13 Dose: 30 mg Ferrous Sulfate (Feosol) 325 mg PO DAILY [facility] Last Admin: 10/29/17 08:13 Dose: 325 mg Gabapentin (Neurontin) 300 mg PO TID [facility] Last Admin: 10/29/17 08:13 Dose: 300 mg Glucagon (Glucagon) 1 mg IM PRN PRN PRN Reason: Hypoglycemia Guaifenesin (Robitussin Sf) 200 mg PO Q4H PRN PRN Reason: Cough Hydralazine HCl (Apresoline) 10 mg SLOW IVP Q4H PRN PRN Reason: Systolic BP > 180 Last Admin: 10/24/17 05:37 Dose: 10 mg Dextrose/Water (D5w) 1,000 mls @ 0 mls/hr IV .Q0M PRN; As Directed PRN Reason: Hypoglycemia Insulin Glargine 15 units/ (Miscellaneous Medication) 0.15 mls @ 0 mls/hr SC [facility] Last Admin: 10/28/17 20:51 Dose: 0.15 mls Insulin Glargine 15 units/ (Miscellaneous Medication) 0.15 mls @ 0 mls/hr [facility] Last Admin: 10/29/17 08:15 Dose: 0.15 mls Sodium Chloride (Normal Saline 0.9%) 1,000 mls @ 80 mls/hr IV .[id number] [facility] Last Admin: 10/29/17 01:51 Dose: 1,000 mls Vancomycin HCl 1 gm/ Device 200 mls @ 200 mls/hr IVPB 1800 [facility] Insulin Human Lispro (Humalog) 0 units SC .MODERATE SLIDING SC PRN PRN Reason: Moderate Correctional Scale Last Admin: 10/28/17 16:42 Dose: 4 unit Insulin Human Lispro (Humalog) 0 units SC .BEDTIME SLIDING SC PRN PRN Reason: Bedtime Correctional Scale Last Admin: 10/22/17 22:30 Dose: 3 unit Labetalol HCl (Normodyne) 20 mg SLOW IVP Q4H PRN PRN Reason: Systolic BP > 180 Last Admin: 10/18/17 06:33 Dose: 20 mg Lactulose (Lactulose) 20 gm PO DAILYPRN PRN PRN Reason: Constipation Lactulose (Lactulose) 30 gm PO DAILY [facility] Last Admin: 10/29/17 08:15 Dose: Not Given Levothyroxine Sodium (Synthroid) 175 mcg PO 0600 [facility] Last Admin: 10/29/17 05:26 Dose: 175 mcg Loperamide HCl (Imodium) 2 mg PO PRN PRN PRN Reason: Diarrhea/Loose Stools Loratadine (Claritin) 10 mg PO DAILYPRN PRN PRN Reason: Sinus Symptoms Magnesium Hydroxide (Milk Of Magnesium) 30 ml PO DAILYPRN PRN PRN Reason: Constipation Last Admin: 10/20/17 10:40 Dose: 30 ml Mineral Oil/White Petrolatum (Eucerin Cream) 0 gm TOP BIDPRN PRN PRN Reason: Dry Skin Miscellaneous Medication (Pharmacy To Dose) 1 each IVPB PRN PRN PRN Reason: Pharmacy to dose Nitroglycerin (Nitrostat) 0.4 mg SL Q5MIN PRN PRN Reason: Chest Pain Ondansetron HCl (Zofran Odt) 4 mg PO Q6H PRN PRN Reason: Nausea/Vomiting Ondansetron HCl (Zofran) 4 mg IVP Q6H PRN PRN Reason: Nausea/Vomiting Pantoprazole Sodium (Protonix) 40 mg IVP DAILY [facility] Last Admin: 10/29/17 08:13 Dose: 40 mg Phenol (Chloraseptic [place] 180 Ml Bot) 0 ml PO PRN PRN PRN Reason: Sore Throat Phenyleph/Shark Oil/[place] Butter (Preparation H) 1 supp IA QIDPRN PRN PRN Reason: Hemorrhoids Last Admin: 10/21/17 03:05 Dose: 1 supp Potassium Chloride (K-Dur) 20 meq PO QAM-WM [facility] Last Admin: 10/29/17 08:12 Dose: 20 meq Saccharomyces Boulardii (Florastor) 250 mg PO DAILY [facility] Last Admin: 10/29/17 08:13 Dose: 250 mg Senna (Senokot) 2 tab PO HSPRN PRN PRN Reason: Constipation Last Admin: 10/20/17 20:49 Dose: 2 tab Sodium Chloride (Milam Nasal [place] 0.65%) 0 ml EA NARE QIDPRN PRN PRN Reason: Nasal Congestion Sodium Chloride (Flush - Normal Saline) 10 ml IVF Q12HR [facility] Last Admin: 10/29/17 08:15 Dose: 10 ml Sodium Chloride (Flush - Normal Saline) 10 ml IVF PRN PRN PRN Reason: Saline Flush Sodium Chloride (Flush - Normal Saline) 10 ml IVF PRN PRN PRN Reason: Saline Flush Thiamine HCl (Thiamine) 100 mg PO DAILY [facility] Last Admin: 10/29/17 08:13 Dose: 100 mg Trazodone HCl (Desyrel) 100 mg PO HS PRN PRN Reason: Insomnia Last Admin: 10/26/17 00:14 Dose: 100 mg
[2017-10-29] MEDS: HumaLOG 300 UNITS/3 ML VIAL SC PRN (11:25)
[2017-10-29 14:20] LABS: Hemoglobin 7.4 g/dL (14.0-18.0)
[2017-10-29] MEDS ORDERED: HYDROcodone/Acetaminophen 5/325 mg Tablet PO PRN (14:49)
[2017-10-29] MEDS: HYDROcodone/Acetaminophen 5/325 mg Tablet PO PRN ×2 (14:58→21:06)
--- NOTE | 2017-10-29 16:12 | PDOC.CTH ---
<Rekha Benitez - Last Filed: 10/29/17 16:12> Cardiology Progress Note - Subjective The pt seen and examined. No overnight events. He denied any cardiac complaints, but cont. having chronic back pain. - Objective Vital Signs Temp Pulse Resp BP BP Pulse Ox 10/29/17 15:22 98.5 F 83 18 152/75 H 92 L 10/29/17 11:37 81 16 94 L 10/29/17 11:03 98.4 F 75 16 137/67 93 L 10/29/17 08:19 84 10/29/17 08:06 98.5 F 84 16 142/71 H 94 L 10/29/17 08:00 98.5 F 84 16 10/29/17 06:21 85 16 93 L Admit Weight 177 lb 0.499 oz Weight 208 lb 12.8 oz 10/28/17 10/29/17 10/30/17 06:59 06:59 06:59 Intake Total 1790 8851 Output Total 1625 2550 1600 Balance 165 6301 -1600 - Physical Examination General/Neuro: alert & oriented x3 Neck: no JVD present Lungs: other: (diminished at bases) Heart: RRR Abdomen: soft Extremities: other: (1-2+ pitting BLE edema) - Telemetry Telemetry Rhythm: SR 80s - Labs Result Diagrams: 10/29/17 14:00 10/29/17 04:53 Troponin/CKMB CK-MB (CK-2) 2.9 ng/mL (0-6.6) 10/15/17 00:17 Troponin I 0.176 ng/mL (< 0.028) H 10/15/17 00:17 - Assessment/Plan 1. AFib with RVR - Converted back to SR at 0700 on 10/17/17; Remains in SR with Amiodarone 200mg BID. Off any OAC, Lovenox, or ASA due to Hematochezia. Cont. to monitor on tele 2. Chronic combined HF - stable; cont. to monitor 3. HTN - BP med were held due to hypotensive 2/2 Anemia. 4. Chronic Anemia - worsened today. Total 7 units of PRBC tx. 5. DM type 2 - managed by PCP 6. PVD with hx of all Lt digits and 2nd toe amputation and Rt 2nd toe gangrene - managed by PCP 7. Hx of liver dysfunction 2/2 to ETOH abuse - stable. cont. to monitor 8. CODY - stable 9. 1.8 cm Lung mass - [facility] 10. Ex- smoker, quit in 04/2017 11. Severe - evaluated by Dr Rose in 07/2017 and the pt is not good candidate for AVR for now. MAR reviewed * Echo on 10/16/17 showed EF 50-55%, inferior wall jypokinesis, LVH, mod dilated LA, mild MR, mild TR, and severe with 0.87sq cm. * Possible MRI today. Possible [place] for possible endocarditis if no other source of the infection can be found Review of Systems - Review of Systems Constitutional: reports: no symptoms reported EENTM: reports: no symptoms reported Respiratory: reports: no symptoms reported Cardiac (ROS): reports: no symptoms reported ABD/GI: reports: no symptoms reported : reports: no symptoms reported Musculoskeletal: reports: see HPI <Sherie Amin - Last Filed: 10/29/17 18:40> Cardiology Progress Note - Objective Vital Signs Temp Pulse Pulse Resp BP BP BP 10/29/17 15:22 98.5 F 83 18 152/75 H 10/29/17 15:02 84 168/77 H 10/29/17 11:37 81 16 10/29/17 11:03 98.4 F 75 16 137/67 10/29/17 08:19 84 10/29/17 08:06 98.5 F 84 16 142/71 H 10/29/17 08:00 98.5 F 84 16 Pulse Ox 10/29/17 15:22 92 L 10/29/17 15:02 10/29/17 11:37 94 L 10/29/17 11:03 93 L 10/29/17 08:19 10/29/17 08:06 94 L 10/29/17 08:00 Admit Weight 177 lb 0.499 oz Weight 208 lb 12.8 oz 10/28/17 10/29/17 10/30/17 06:59 06:59 06:59 Intake Total 1790 8851 1635 Output Total 1625 2550 1600 Balance 165 6301 35 - Labs Result Diagrams: 10/29/17 14:00 10/29/17 04:53 Troponin/CKMB CK-MB (CK-2) 2.9 ng/mL (0-6.6) 10/15/17 00:17 Troponin I 0.176 ng/mL (< 0.028) H 10/15/17 00:17 - Assessment/Plan Pt. seen and eval. by me. I agree with the A/P by the [employer]. Multiple medical problems. Spinal abcesses per MRI.
--- NOTE | 2017-10-29 16:57 | MRI ---
MRI LUMBAR SPINE WITH AND WITHOUT GADOLINIUM CONTRAST 10/29/17 HISTORY: Low back pain. Fever. FINDINGS: radiographs are not available for direct correlation, therefore, the lowest lumbar type vertebra will be designated as L5, with the remainder numbered accordingly. There is partial compression of the T12 superior end plate with minimal retropulsion. Minimal if any residual edema. Very mild disc bulge and osteophytes present throughout the lumbar spine without focal disc herniatio n or nerve root compression. At the lumbosacral junction, there is fluid and enhancement of the inter vertebral discs. Poor definition of the adjacent end plates with significant edema and enhancement ex tending into the L5 and S1 vertebral segments. Posterior to the disc space and L5 vertebral body is a vertically oriented oval fluid collection measuring up to 2.3 cm in length x 1.2 cm depth. It is galen rounded by a thin rim of contrast enhancement. It results in moderate effacement of the ventral and r ight ventral aspect of the thecal sac. A thin extension of the epidural abscess extends superiorly to lie immediately posterior to the L4 vertebral body. IMPRESSION: Discitis, osteomyelitis at the lumbosacral junction with epidural abscess as detailed above. Findings were called to Dr. Wilder at 1619 hours. Code CR POS: [facility]
--- NOTE | 2017-10-29 17:15 | MRI ---
MRI CERVICAL SPINE WITH AND WITHOUT CONTRAST: 10/29/17 CLINICAL HISTORY: Bacteremia, neck pain. FINDINGS: There is generalized edema throughout the cervical spine marrow segments. There is disc space fluid o f C6-7. There is abnormal soft tissue thickening with enhancement of the anterior paraspinous soft ti ssues throughout the cervical spine notably at the mid to lower aspect with enhancement with enhancem ent encasing the anterior and posterior aspects of the anterior column of majority of the cervical sp ine. There is also pathologically enhancing epidural signal intensity spanning the C3-4 through C7 le rina. This does indicate epidural phlegmon/developing abscess formation. The degree of patient motion does degrade image quality and limits assessment of the spinal cord. No pathologic intramedullary enh ancement is confirmed. There is multilevel disc osteophyte formation with effacement of ventral theca l sac. Neural foramina are limited in assessment by patient motion. IMPRESSION: Evidence of multilevel osteomyelitis/discitis throughout the cervical spine with associated paraspino us inflammation including epidural phlegmon/abscess formation as discussed above. There is motion artifact that limits assessment. Telephone call of findings placed to patient's Infectious Disease physician, Fletcher Wilder, [id number], 10/29/17. Code CR POS: [facility]
[2017-10-29] MEDS: Atorvastatin Calcium 40 MG TAB PO SCH (21:05)
[2017-10-30 02:43] LABS: Hemoglobin 5.7 g/dL (14.0-18.0)
[2017-10-30] MEDS: Sodium Chloride 0.9% 1,000 ML IV SCH ×2 (03:20→15:21)
[2017-10-30] MEDS: Levothyroxine 175 MCG TAB PO SCH (05:37)
[2017-10-30] MEDS: Budesonide 0.5 MG/2 ML NEB INH SCH ×2 (07:04→19:16)
[2017-10-30] MEDS: Insulin Glargine 15 UNITS in Pre-Filled Syringe 1 EACH SC SCH ×2 (08:36→20:13)
[2017-10-30] MEDS: Saccharomyces boulardii 250 MG CAP PO SCH (08:37)
[2017-10-30] MEDS: Ferrous Sulfate 325 MG TAB PO SCH (08:37)
[2017-10-30] MEDS: Pantoprazole 40 MG VIAL IVP SCH (08:37)
[2017-10-30] MEDS: Gabapentin 300 MG CAP PO SCH ×3 (08:37→20:13)
[2017-10-30] MEDS: Digoxin 0.125 MG TAB PO SCH (08:37)
[2017-10-30] MEDS: Amiodarone 200 MG TAB PO SCH ×2 (08:37→20:13)
[2017-10-30] MEDS: Potassium Chloride 20 MEQ TAB PO SCH (08:37)
[2017-10-30] MEDS: DULoxetine 30 MG CAP PO SCH (08:37)
[2017-10-30] MEDS: HYDROcodone/Acetaminophen 5/325 mg Tablet PO PRN ×2 (10:39→18:04)
[2017-10-30] MEDS ORDERED: Magnesium Citrate 300 ML BOT PO SCH (10:45)
--- NOTE | 2017-10-30 11:01 | PDOC.PN ---
- Subjective Encounter Start Date: 10/30/17 Encounter Start Time: 07:40 his hb dropped again, he has still bleeding, given 2 unit PRBC - Objective Resuscitation Status: Resuscitation Status DNR:Do Not Resuscitate MAR Reviewed: Yes Vital Signs & Weight: Vital Signs (12 hours) Temp Pulse Pulse Resp BP BP BP 10/30/17 10:36 83 18 10/30/17 10:00 99.2 F 85 16 130/63 10/30/17 08:37 86 10/30/17 08:31 98 F 86 18 106/60 10/30/17 07:06 78 18 10/30/17 07:04 78 18 10/30/17 06:37 97.8 F 76 15 126/66 10/30/17 06:23 98.6 F 75 15 121/57 L 10/30/17 06:07 98.6 F 76 15 121/57 L 10/30/17 05:45 97.9 F 79 20 91/55 L 10/30/17 04:45 98.0 F 79 20 91/52 L 10/30/17 04:30 98.1 F 80 20 85/51 L 10/30/17 04:01 78/45 L 10/30/17 04:00 97.8 F 81 16 80/50 L 10/30/17 00:12 75 12 10/30/17 00:00 97.9 F 74 16 103/58 L Pulse Ox 10/30/17 10:36 98 10/30/17 10:00 97 10/30/17 08:37 10/30/17 08:31 99 10/30/17 07:06 99 10/30/17 07:04 99 10/30/17 06:37 96 10/30/17 06:23 10/30/17 06:07 92 L 10/30/17 05:45 97 10/30/17 04:45 99 10/30/17 04:30 10/30/17 04:01 10/30/17 04:00 92 L 10/30/17 00:12 10/30/17 00:00 92 L Weight Admit Weight 177 lb 0.499 oz Weight 205 lb Most Recent Monitor Data Heart Rate from ECG 74 NIBP 110/67 NIBP BP-Mean 83 Respiration from ECG 17 SpO2 97 I&O: 10/29/17 10/30/17 10/31/17 06:59 06:59 06:59 Intake Total 8851 3357 350 Output Total 2550 3160 Balance 6301 197 350 Result Diagrams: 10/30/17 02:22 10/29/17 04:53 Additional Labs: Accuchecks 10/30/17 10/29/17 10/29/17 05:47 20:35 16:46 POC Glucose 129 H 171 H 156 H 10/29/17 10:57 POC Glucose 172 H EKG Reviewed by me: Yes (nsr) Phys Exam - Physical Examination Constitutional: NAD HEENT: PERRLA, moist MMs, sclera anicteric Neck: no JVD, supple Respiratory: no wheezing, no rales, no rhonchi Cardiovascular: RRR, no rub SM+ Gastrointestinal: soft, non-tender, no distention, positive bowel sounds Musculoskeletal: no edema, pulses present Neurological: moves all 4 limbs Lymphatic: no nodes Psychiatric: normal affect Skin: no rash, normal turgor Dx/Plan (1) Acute kidney failure Status: Resolved (2) Atrial fibrillation with rapid ventricular response Code(s): I48.91 - UNSPECIFIED ATRIAL FIBRILLATION Status: Acute Comment: controlled, now nsr, on oral amiodaron, not a candidate for chronic anticoagulation due to GI bleeding (3) Demand ischemia of myocardium Code(s): I24.8 - OTHER FORMS OF ACUTE ISCHEMIC HEART DISEASE Status: Acute (4) Hematuria, gross Status: Resolved Comment: s/p Viramontes by urology w dorsal slit (5) Hyponatremia Code(s): E87.1 - HYPO-OSMOLALITY AND HYPONATREMIA Status: Resolved (6) Lactic acidosis Code(s): E87.2 - ACIDOSIS Status: Resolved (7) Sepsis with acute organ dysfunction Code(s): A41.9 - SEPSIS, UNSPECIFIED ORGANISM; R65.20 - SEVERE SEPSIS WITHOUT SEPTIC SHOCK Status: Resolved (8) Splenic infarct Code(s): D73.5 - INFARCTION OF SPLEEN Status: Acute Comment: ? septic embolization (9) 3-vessel CAD Status: Chronic (10) Alcoholic cirrhosis of liver Code(s): K70.30 - ALCOHOLIC CIRRHOSIS OF LIVER WITHOUT ASCITES Status: Chronic Qualifiers: Ascites presence: without ascites Qualified Code(s): K70.30 - Alcoholic cirrhosis of liver without ascites (11) Anemia, macrocytic Code(s): D53.9 - NUTRITIONAL ANEMIA, UNSPECIFIED Status: Chronic (12) Anxiety and depression Code(s): F41.9 - ANXIETY DISORDER, UNSPECIFIED; F32.9 - MAJOR DEPRESSIVE DISORDER, SINGLE EPISODE, UNSPECIFIED Status: Chronic (13) COPD (chronic obstructive pulmonary disease) Status: Chronic (14) Chronic combined systolic and diastolic CHF (congestive heart failure) Code(s): I50.42 - CHRONIC COMBINED SYSTOLIC AND DIASTOLIC HRT FAIL Status: Chronic Comment: Compensated for now (15) DM type 2 (diabetes mellitus, type 2) Status: Chronic Qualifiers: Diabetes mellitus senior care insulin use: with national accounts sales use Diabetes mellitus complication status: without complication Qualified Code(s): E11.9 - Type 2 diabetes mellitus without complications; Z79.4 - fisheries officer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; Z79.4 - fisheries officer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; Z79.4 - fisheries officer ( 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; Z79.4 - fisheries officer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 (16) Dyslipidemia Code(s): E78.5 - HYPERLIPIDEMIA, UNSPECIFIED Status: Chronic (17) GERD (gastroesophageal reflux disease) Code(s): K21.9 - GASTRO-ESOPHAGEAL REFLUX DISEASE WITHOUT ESOPHAGITIS Status: Chronic (18) HTN (hypertension) Code(s): I10 - ESSENTIAL (PRIMARY) HYPERTENSION Status: Chronic (19) Hypoalbuminemia due to protein-calorie malnutrition Code(s): E46 - UNSPECIFIED PROTEIN-CALORIE MALNUTRITION Status: Chronic (20) Hypothyroidism Code(s): E03.9 - HYPOTHYROIDISM, UNSPECIFIED Status: Chronic (21) PVD (peripheral vascular disease) Code(s): I73.9 - PERIPHERAL VASCULAR DISEASE, UNSPECIFIED Status: Chronic (22) Protein-calorie malnutrition, moderate Code(s): E44.0 - MODERATE PROTEIN-CALORIE MALNUTRITION Status: Chronic (23) Thrombocytopenia Code(s): D69.6 - THROMBOCYTOPENIA, UNSPECIFIED Status: Chronic (24) Tobacco abuse Code(s): Z72.0 - TOBACCO USE Status: Chronic (25) Aortic stenosis Code(s): I35.0 - NONRHEUMATIC AORTIC (VALVE) STENOSIS Status: Chronic Comment: severe (26) Bacteremia due to methicillin resistant Staphylococcus aureus Code(s): R78.81 - BACTEREMIA Status: Acute Comment: Suspect Infective endocarditis and /or Diskitis (27) Gangrene of toe of right foot Code(s): I96 - GANGRENE, NOT ELSEWHERE CLASSIFIED Status: Acute (28) Cavitary lesion of lung Code(s): J98.4 - OTHER DISORDERS OF LUNG Status: Chronic Comment: Op work up done at [facility] (29) UTI (urinary tract infection) Status: Acute (30) Hypokalemia Code(s): E87.6 - HYPOKALEMIA Status: Acute (31) Osteomyelitis of toe of right foot Code(s): M86.9 - OSTEOMYELITIS, UNSPECIFIED Status: Acute (32) Acute GI bleeding Code(s): K92.2 - GASTROINTESTINAL HEMORRHAGE, UNSPECIFIED Status: Acute (33) Anemia due to acute blood loss Code(s): D62 - ACUTE POSTHEMORRHAGIC ANEMIA Status: Acute (34) Hypomagnesemia Code(s): E83.42 - HYPOMAGNESEMIA Status: Acute (35) Hypotension Status: Acute (36) Discitis of cervical region Code(s): M46.42 - DISCITIS, UNSPECIFIED, CERVICAL REGION Status: Acute (37) Discitis of lumbosacral region Code(s): M46.47 - DISCITIS, UNSPECIFIED, LUMBOSACRAL REGION Status: Acute (38) Epidural abscess Code(s): G06.2 - EXTRADURAL AND SUBDURAL ABSCESS, UNSPECIFIED Status: Acute - Plan cont current plan of care, continue antibiotics, PT/OT, protective services social worker * I notified dr smith about his recurrent bleeding, he may need colectomy but he is very poor surgical candidate * i will consult neurosurgery for epidural abscess * medication reviewed as below * symptomatic treatment * he is very complicated pt * not ready for discharge. Review of Systems - Review of Systems Constitutional: weakness. negative: fever, chills, sweats, malaise, other Eyes: negative: Pain, Vision Change, Conjunctivae Inflammation, Eyelid Inflammation, Redness, Other ENT: negative: Ear Pain, Ear Discharge, Nose Pain, Nose Discharge, Nose Congestion, Mouth Pain, Mouth Swelling, Throat Pain, Throat Swelling, Other Respiratory: negative: Cough, Dry, Shortness of Breath, Hemoptysis, SOB with Excertion, Pleuritic Pain, Sputum, Wheezing Cardiovascular: negative: chest pain, palpitations, orthopnea, paroxysmal nocturnal dyspnea, edema, light headedness, other Gastrointestinal: Hematochezia. negative: Nausea, Vomiting, Abdominal Pain, Diarrhea, Constipation, Melena, Other Genitourinary: negative: Dysuria, Frequency, Incontinence, Hematuria, Retention , Other Musculoskeletal: Neck Pain, Back Pain. negative: Shoulder Pain, Arm Pain, Hand Pain, Leg Pain, Foot Pain, Other - Medications/Allergies Allergies/Adverse Reactions: Allergies Allergy/AdvReac Type Severity Reaction Status Date / Time No Known Allergies Allergy Unverified 07/23/17 10:34 Medications: Current Medications Acetaminophen (Tylenol) 650 mg PO Q4H PRN PRN Reason: Headache/Fever or Pain Last Admin: 10/29/17 13:18 Dose: 650 mg Hydrocodone Bitart/Acetaminophen ([place] 5/325) 1 tab PO Q6H PRN PRN Reason: Moderate Pain (4-6) Last Admin: 10/30/17 03:17 Dose: 1 tab Hydrocodone Bitart/Acetaminophen ([place] 5/325) 2 tab PO Q6H PRN PRN Reason: Severe Pain (7-10) Last Admin: 10/30/17 10:39 Dose: 2 tab Al Hydroxide/Mg Hydroxide (Maalox) 30 ml PO Q6H PRN PRN Reason: Heartburn or Indigestion Albuterol/Ipratropium (Duoneb) 3 ml NEB [id number] [facility] Last Admin: 10/30/17 10:36 Dose: 3 ml Amiodarone HCl (Cordarone) 200 mg PO BID [facility] Last Admin: 10/30/17 08:37 Dose: 200 mg Artificial Tears (Tears Naturale) 0 drop EA EYE PRN PRN PRN Reason: Dry Eyes Atorvastatin Calcium (Lipitor) 40 mg PO HS [facility] Last Admin: 10/29/17 21:05 Dose: 40 mg Budesonide (Pulmicort Neb Solution) 0.5 mg INH BID-RT [facility] Last Admin: 10/30/17 07:04 Dose: 0.5 mg Dextrose/Water (Dextrose 50%) 25 gm SLOW IVP PRN PRN PRN Reason: Hypoglycemia Digoxin (Lanoxin) 0.125 mg PO QAM [facility] Last Admin: 10/30/17 08:37 Dose: 0.125 mg Duloxetine HCl (Cymbalta) 30 mg PO DAILY [facility] Last Admin: 10/30/17 08:37 Dose: 30 mg Ferrous Sulfate (Feosol) 325 mg PO DAILY [facility] Last Admin: 10/30/17 08:37 Dose: 325 mg Gabapentin (Neurontin) 300 mg PO TID [facility] Last Admin: 10/30/17 08:37 Dose: 300 mg Glucagon (Glucagon) 1 mg IM PRN PRN PRN Reason: Hypoglycemia Guaifenesin (Robitussin Sf) 200 mg PO Q4H PRN PRN Reason: Cough Hydralazine HCl (Apresoline) 10 mg SLOW IVP Q4H PRN PRN Reason: Systolic BP > 180 Last Admin: 10/24/17 05:37 Dose: 10 mg Dextrose/Water (D5w) 1,000 mls @ 0 mls/hr IV .Q0M PRN; As Directed PRN Reason: Hypoglycemia Insulin Glargine 15 units/ (Miscellaneous Medication) 0.15 mls @ 0 mls/hr SC HS [facility] Last Admin: 10/29/17 21:10 Dose: 0.15 mls Insulin Glargine 15 units/ (Miscellaneous Medication) 0.15 mls @ 0 mls/hr SC QAM [facility] Last Admin: 10/30/17 08:36 Dose: 0.15 mls Sodium Chloride (Normal Saline 0.9%) 1,000 mls @ 80 mls/hr IV .[id number] [facility] Last Admin: 10/30/17 03:20 Dose: 1,000 mls Vancomycin HCl 1 gm/ Device 200 mls @ 200 mls/hr IVPB 1800 MICHAELA Insulin Human Lispro (Humalog) 0 units SC .MODERATE SLIDING SC PRN PRN Reason: Moderate Correctional Scale Last Admin: 10/29/17 11:25 Dose: 2 unit Insulin Human Lispro (Humalog) 0 units SC .BEDTIME SLIDING SC PRN PRN Reason: Bedtime Correctional Scale Last Admin: 10/22/17 22:30 Dose: 3 unit Labetalol HCl (Normodyne) 20 mg SLOW IVP Q4H PRN PRN Reason: Systolic BP > 180 Last Admin: 10/18/17 06:33 Dose: 20 mg Lactulose (Lactulose) 20 gm PO DAILYPRN PRN PRN Reason: Constipation Lactulose (Lactulose) 30 gm PO DAILY [facility] Last Admin: 10/30/17 08:37 Dose: Not Given Levothyroxine Sodium (Synthroid) 175 mcg PO 0600 [facility] Last Admin: 10/30/17 05:37 Dose: 175 mcg Loperamide HCl (Imodium) 2 mg PO PRN PRN PRN Reason: Diarrhea/Loose Stools Loratadine (Claritin) 10 mg PO DAILYPRN PRN PRN Reason: Sinus Symptoms Magnesium Citrate (Citrate Of Magnesia 300 Ml Bot) 300 ml PO NOW [facility] Stop: 10/30/17 16:00 Last Admin: 10/30/17 10:39 Dose: 300 ml Magnesium Hydroxide (Milk Of Magnesium) 30 ml PO DAILYPRN PRN PRN Reason: Constipation Last Admin: 10/20/17 10:40 Dose: 30 ml Mineral Oil/White Petrolatum (Eucerin Cream) 0 gm TOP BIDPRN PRN PRN Reason: Dry Skin Miscellaneous Medication (Pharmacy To Dose) 1 each IVPB PRN PRN PRN Reason: Pharmacy to dose Nitroglycerin (Nitrostat) 0.4 mg SL Q5MIN PRN PRN Reason: Chest Pain Ondansetron HCl (Zofran Odt) 4 mg PO Q6H PRN PRN Reason: Nausea/Vomiting Last Admin: 10/29/17 13:19 Dose: 4 mg Ondansetron HCl (Zofran) 4 mg IVP Q6H PRN PRN Reason: Nausea/Vomiting Pantoprazole Sodium (Protonix) 40 mg IVP DAILY [facility] Last Admin: 10/30/17 08:37 Dose: 40 mg Phenol (Chloraseptic [place] 180 Ml Bot) 0 ml PO PRN PRN PRN Reason: Sore Throat Phenyleph/Shark Oil/[place] Butter (Preparation H) 1 supp MO QIDPRN PRN PRN Reason: Hemorrhoids Last Admin: 10/21/17 03:05 Dose: 1 supp Potassium Chloride (K-Dur) 20 meq PO QAM-WM [facility] Last Admin: 10/30/17 08:37 Dose: 20 meq Saccharomyces Boulardii (Florastor) 250 mg PO DAILY [facility] Last Admin: 10/30/17 08:37 Dose: 250 mg Senna (Senokot) 2 tab PO HSPRN PRN PRN Reason: Constipation Last Admin: 10/20/17 20:49 Dose: 2 tab Sodium Chloride ([place] Nasal [place] 0.65%) 0 ml EA NARE QIDPRN PRN PRN Reason: Nasal Congestion Sodium Chloride (Flush - Normal Saline) 10 ml IVF Q12HR MICHAELA Last Admin: 10/30/17 08:37 Dose: 10 ml Sodium Chloride (Flush - Normal Saline) 10 ml IVF PRN PRN PRN Reason: Saline Flush Thiamine HCl (Thiamine) 100 mg PO DAILY MICHAELA Last Admin: 10/30/17 08:37 Dose: 100 mg Trazodone HCl (Desyrel) 100 mg PO HS PRN PRN Reason: Insomnia Last Admin: 10/26/17 00:14 Dose: 100 mg
--- NOTE | 2017-10-30 11:01 | PRG ---
DATE OF SERVICE: 10/30/2017 HISTORY OF PRESENT ILLNESS: A 72-year-old male patient who has inoperable coronary artery disease, h as had prior stent placement, has been followed by Dr. Melo and Dr. Amin. He has echocardiogram no ting some inferior akinesis with ejection fraction of 50-55%. He has a 2-3/6 systolic ejection murmu r. I saw him for PAD. He has had stents in his lower extremities. He has had prior toe amputations that have healed. He has osteomyelitis of one of his toes, has been treated on antibiotics. Since I saw the patient he has developed GI bleeding. He has been seen by Cardiology. Dr. Anabela lin rmed a colonoscopy noting clot and blood in the left colon. The patient has had 10 units of blood tr ansfused. Dr. Nolan called me today asking me to see him regarding his GI bleeding. The patient i s DNR. I have discussed with the patient and he wants to have surgery if his bleeding does not stop. PHYSICAL EXAMINATION: LUNGS: At this point his lungs are clear to auscultation. CARDIAC: Regular rate and rhythm with 2-3/6 high pitched ejection murmur. ABDOMEN: Soft, nontender. EXTREMITIES: Unremarkable except for previously noted osteomyelitis of his toe right foot. LABORATORY: The patient's white count is 6, hemoglobin 7.3, platelet count 157,000. Sodium 132, pot assium 4.3, BUN 8, creatinine 0.97. The patient's last bilirubin 10/22/2017 was 1.4, direct bilirubi n 0.7. The patient had coagulation studies 10/14/2017. PT 15.6, INR 1.2. He is receiving blood infusion now. He has had a nuclear bleeding scan noting bleeding in the left c olon. Last CAT scan was 10/14/2017. There is noted to be sclerotic changes in the liver with nodula rity in the left hepatic lobe. No masses. Gallbladder surgically absent, wedge shaped opacities in the spleen suggestive of splenic infarct. ASSESSMENT AND PLAN: 1. Gastrointestinal bleeding. The patient is a high surgical risk. Would initiate clear liquid t, give him magnesium citrate and if he continues bleeding he will need a colon resection. He unders tands increased cardiac risk of a colon resection including myocardial infarction and intraoper ative or perioperatively. If he does have surgery, he will need to be in the Intensive Care Unit pos toperatively and Cardiology is already seeing him. With his ongoing bleeding, I think it is likely rik villeda might need an operation, but will observe him for 24 hours and put him on clear liquids, anticipati ng possible need for colon resection 2. Coronary artery disease, inoperable severe disease, followed by Cardiology this hospitalization. Recent cardiac catheterization. 3. History of atrial fibrillation. 4. Probable cirrhosis. 5. Hypertension. 6. Peripheral artery disease. Previous amputation of feet, partial. 7. Gastroesophageal reflux disease. 8. Neuropathy. 9. Osteoarthritis. 10. Chronic obstructive pulmonary disease. 11. Aortic stenosis. 12. Hypothyroidism.
[2017-10-30 11:30] LABS: Hemoglobin 7.8 g/dL (14.0-18.0)
--- NOTE | 2017-10-30 12:14 | PDOC.CTH ---
<Rekha Benitez - Last Filed: 10/30/17 12:14> Cardiology Progress Note - Subjective The pt seen and examined. No overnight events. No cardiac complaints. He is resting well at this time. - Objective Vital Signs Temp Pulse Pulse Resp BP BP BP 10/30/17 10:36 83 18 10/30/17 10:00 99.2 F 85 16 130/63 10/30/17 08:37 86 10/30/17 08:31 98 F 86 18 106/60 10/30/17 08:00 98 F 86 18 10/30/17 07:06 78 18 10/30/17 07:04 78 18 10/30/17 06:37 97.8 F 76 15 126/66 10/30/17 06:23 98.6 F 75 15 121/57 L 10/30/17 06:07 98.6 F 76 15 121/57 L 10/30/17 05:45 97.9 F 79 20 91/55 L 10/30/17 04:45 98.0 F 79 20 91/52 L 10/30/17 04:30 98.1 F 80 20 85/51 L 10/30/17 04:01 78/45 L 10/30/17 04:00 97.8 F 81 16 80/50 L Pulse Ox 10/30/17 10:36 98 10/30/17 10:00 97 10/30/17 08:37 10/30/17 08:31 99 10/30/17 08:00 99 10/30/17 07:06 99 10/30/17 07:04 99 10/30/17 06:37 96 10/30/17 06:23 10/30/17 06:07 92 L 10/30/17 05:45 97 10/30/17 04:45 99 10/30/17 04:30 10/30/17 04:01 10/30/17 04:00 92 L Admit Weight 177 lb 0.499 oz Weight 205 lb 10/29/17 10/30/17 10/31/17 06:59 06:59 06:59 Intake Total 8851 3357 350 Output Total 2550 3160 Balance 6301 197 350 - Physical Examination General/Neuro: alert & oriented x3 Neck: no JVD present Lungs: other: (diminished at bases) Heart: RRR Abdomen: soft Extremities: other: (No edema) - Telemetry Telemetry Rhythm: SR 80s - Labs Result Diagrams: 10/30/17 11:23 10/29/17 04:53 Troponin/CKMB CK-MB (CK-2) 2.9 ng/mL (0-6.6) 10/15/17 00:17 Troponin I 0.176 ng/mL (< 0.028) H 10/15/17 00:17 - Assessment/Plan 1. AFib with RVR - Converted back to SR at 0700 on 10/17/17; Remains in SR with Amiodarone 200mg BID. Off any OAC, Lovenox, or ASA due to Hematochezia 2/2 bleeding in Lt colon by neuclear bleeding scan. Cont. to monitor on tele 2. Chronic combined HF - stable; cont. to monitor 3. HTN - BP med were held due to hypotensive 2/2 Anemia. 4. Chronic Anemia - S/p 2units PRBC tx today (Total 9 units of PRBC tx.); possible colectomy by Dr Monte? 5. DM type 2 - managed by PCP 6. PVD with hx of all Lt digits and 2nd toe amputation and Rt 2nd toe gangrene - managed by PCP 7. Hx of liver dysfunction 2/2 to ETOH abuse - Sclerotic change in Liver with nodularity in Lt hepatic lobe by CT ABD. table. cont. to monitor 8. CODY - stable 9. 1.8 cm Lung mass - [facility] 10. Ex- smoker, quit in 04/2017 11. Severe - evaluated by Dr Rose in 07/2017 and the pt is not good candidate for AVR for now. 12. Epidural Abscess - neurologist consult MAR reviewed * Echo on 10/16/17 showed EF 50-55%, inferior wall jypokinesis, LVH, mod dilated LA, mild MR, mild TR, and severe with 0.87sq cm. * Possible [place] for possible endocarditis if no other source of the infection can be found Review of Systems - Review of Systems Constitutional: reports: no symptoms reported EENTM: reports: no symptoms reported Respiratory: reports: no symptoms reported Cardiac (ROS): reports: no symptoms reported ABD/GI: reports: no symptoms reported : reports: no symptoms reported Musculoskeletal: reports: back pain <Amin,G Pedro - Last Filed: 10/30/17 17:38> Cardiology Progress Note - Objective Vital Signs Temp Pulse Pulse Resp BP BP Pulse Ox 10/30/17 15:19 98.5 F 78 16 109/59 L 95 10/30/17 12:19 98.9 F 84 16 111/59 L 96 10/30/17 10:36 83 18 98 10/30/17 10:00 99.2 F 85 16 130/63 97 10/30/17 08:37 86 10/30/17 08:31 98 F 86 18 106/60 99 10/30/17 08:00 98 F 86 18 99 10/30/17 07:06 78 18 99 10/30/17 07:04 78 18 99 10/30/17 06:37 97.8 F 76 15 126/66 96 10/30/17 06:23 98.6 F 75 15 121/57 L 10/30/17 06:07 98.6 F 76 15 121/57 L 92 L 10/30/17 05:45 97.9 F 79 20 91/55 L 97 Admit Weight 177 lb 0.499 oz Weight 205 lb 10/29/17 10/30/17 10/31/17 06:59 06:59 06:59 Intake Total 8851 3357 350 Output Total 2550 3160 Balance 6301 197 350 - Labs Result Diagrams: 10/30/17 11:23 10/29/17 04:53 Troponin/CKMB CK-MB (CK-2) 2.9 ng/mL (0-6.6) 10/15/17 00:17 Troponin I 0.176 ng/mL (< 0.028) H 10/15/17 00:17 - Assessment/Plan Pt. seen and eval. by me. No new complaints. I agree with the A/P by the NUT SORTER OPERATOR. Multiple medical problems. Chest clear. RRR. murmur. Mild edema.
[2017-10-30] MEDS: Vancomycin HCl 1 GM in Premix Bag 1 BAG IVPB SCH (17:59)
[2017-10-30] MEDS: Atorvastatin Calcium 40 MG TAB PO SCH (20:13)
[2017-10-31] MEDS: HYDROcodone/Acetaminophen 5/325 mg Tablet PO PRN ×4 (00:56→18:50)
[2017-10-31] MEDS: Sodium Chloride 0.9% 1,000 ML IV SCH ×2 (02:20→20:18)
[2017-10-31] MEDS: Levothyroxine 175 MCG TAB PO SCH (04:59)
[2017-10-31] MEDS: Budesonide 0.5 MG/2 ML NEB INH SCH ×2 (07:24→19:04)
[2017-10-31 07:46] LABS: #Eosinphils 0.1 thou/uL (0.0-0.7); #Lymphocytes 1.2 thou/uL (1.20-3.40); #Monocytes 0.7 thou/uL (0.11-0.59); #Neutrophils 3.9 thou/uL (1.40-6.50); %Basophils 0.5 % (0.0-1.0); %Lymphocytes 20.9 % (21.0-51.0); %Monocytes 11.1 % (0.0-10.0); %Neutrophils 66.5 % (42.0-75.0); Hemoglobin 7.5 g/dL (14.0-18.0); Mean Corpuscular HGB CONC 33.3 g/dL (32.0-36.0); Mean Corpuscular Hemoglobin 29.4 pg (27.0-31.0); Mean Corpuscular Volume 88.3 fL (78.0-98.0); Mean Platelet Volume 6.7 fL (7.4-10.4); Platelet Count 127 thou/uL (130-400); RBC Distribution Width 20.7 % (11.5-14.5); Red Blood Cell (RBC) Count 2.55 mill/uL (4.70-6.10); White Blood Cell (WBC) Count 5.8 thou/uL (4.8-10.8)
[2017-10-31 08:10] LABS: Anion Gap 9 mmol/L (10-20); BUN (Urea Nitrogen) 9 mg/dL (8.4-25.7); Calc. Creatinine Clearance 94 mL/min (70-130); Calcium 7.7 mg/dL (7.8-10.44); Carbon Dioxide 27 mmol/L (23-31); Chloride 105 mmol/L (98-107); Estimated GFR-MDRD 79; Glucose 112 mg/dL (83-110); Potassium 4.9 mmol/L (3.5-5.1); Sodium 136 mmol/L (136-145)
[2017-10-31] MEDS: Pantoprazole 40 MG VIAL IVP SCH (11:09)
[2017-10-31] MEDS: Insulin Glargine 15 UNITS in Pre-Filled Syringe 1 EACH SC SCH ×2 (11:09→21:49)
[2017-10-31] MEDS: Ferrous Sulfate 325 MG TAB PO SCH (11:10)
[2017-10-31] MEDS: Amiodarone 200 MG TAB PO SCH ×2 (11:10→21:49)
[2017-10-31] MEDS: Potassium Chloride 20 MEQ TAB PO SCH (11:10)
[2017-10-31] MEDS: Gabapentin 300 MG CAP PO SCH ×3 (11:10→21:49)
[2017-10-31] MEDS: Digoxin 0.125 MG TAB PO SCH (11:10)
[2017-10-31] MEDS: DULoxetine 30 MG CAP PO SCH (11:10)
[2017-10-31] MEDS: Saccharomyces boulardii 250 MG CAP PO SCH (11:11)
--- NOTE | 2017-10-31 11:49 | PDOC.PN ---
- Subjective Encounter Start Date: 10/31/17 Encounter Start Time: 08:10 Patient seen and examined. No new complaints. No overnight events - Objective Resuscitation Status: Resuscitation Status DNR:Do Not Resuscitate MAR Reviewed: Yes Vital Signs & Weight: Vital Signs (12 hours) Temp Pulse Resp BP BP Pulse Ox 10/31/17 11:10 77 10/31/17 08:00 98 F 77 20 135/65 96 10/31/17 07:24 78 16 96 10/31/17 07:22 78 16 96 10/31/17 02:55 98.0 F 77 14 144/67 H 95 10/31/17 01:40 96 10/31/17 00:55 14 149/101 H 10/31/17 00:37 78 12 Weight Admit Weight 177 lb 0.499 oz Weight 205 lb 11.2 oz Most Recent Monitor Data Heart Rate from ECG 74 NIBP 110/67 NIBP BP-Mean 83 Respiration from ECG 17 SpO2 97 I&O: 10/30/17 10/31/17 11/01/17 06:59 06:59 06:59 Intake Total 3357 3404 Output Total 3160 2450 Balance 197 954 Result Diagrams: 10/31/17 07:34 10/31/17 07:34 Additional Labs: Accuchecks 10/31/17 10/31/17 10/30/17 11:19 05:53 16:57 POC Glucose 179 H 125 H 193 H EKG Reviewed by me: Yes (nsr) Phys Exam - Physical Examination Constitutional: NAD HEENT: PERRLA, moist MMs, sclera anicteric Neck: no JVD, supple Respiratory: no wheezing, no rales, no rhonchi Cardiovascular: RRR, no rub SM+ Gastrointestinal: soft, non-tender, no distention, positive bowel sounds Musculoskeletal: no edema, pulses present Neurological: non-focal, normal sensation Lymphatic: no nodes Psychiatric: normal affect Skin: no rash, normal turgor Dx/Plan (1) Acute kidney failure Status: Resolved (2) Atrial fibrillation with rapid ventricular response Code(s): I48.91 - UNSPECIFIED ATRIAL FIBRILLATION Status: Acute Comment: controlled, now nsr, on oral amiodaron, not a candidate for chronic anticoagulation due to GI bleeding (3) Demand ischemia of myocardium Code(s): I24.8 - OTHER FORMS OF ACUTE ISCHEMIC HEART DISEASE Status: Acute (4) Hematuria, gross Status: Resolved Comment: s/p Viramontes by urology w dorsal slit (5) Hyponatremia Code(s): E87.1 - HYPO-OSMOLALITY AND HYPONATREMIA Status: Resolved (6) Lactic acidosis Code(s): E87.2 - ACIDOSIS Status: Resolved (7) Sepsis with acute organ dysfunction Code(s): A41.9 - SEPSIS, UNSPECIFIED ORGANISM; R65.20 - SEVERE SEPSIS WITHOUT SEPTIC SHOCK Status: Resolved (8) Splenic infarct Code(s): D73.5 - INFARCTION OF SPLEEN Status: Acute Comment: ? septic embolization (9) 3-vessel CAD Status: Chronic (10) Alcoholic cirrhosis of liver Code(s): K70.30 - ALCOHOLIC CIRRHOSIS OF LIVER WITHOUT ASCITES Status: Chronic Qualifiers: Ascites presence: without ascites Qualified Code(s): K70.30 - Alcoholic cirrhosis of liver without ascites (11) Anemia, macrocytic Code(s): D53.9 - NUTRITIONAL ANEMIA, UNSPECIFIED Status: Chronic (12) Anxiety and depression Code(s): F41.9 - ANXIETY DISORDER, UNSPECIFIED; F32.9 - MAJOR DEPRESSIVE DISORDER, SINGLE EPISODE, UNSPECIFIED Status: Chronic (13) COPD (chronic obstructive pulmonary disease) Status: Chronic (14) Chronic combined systolic and diastolic CHF (congestive heart failure) Code(s): I50.42 - CHRONIC COMBINED SYSTOLIC AND DIASTOLIC HRT FAIL Status: Chronic Comment: Compensated for now (15) DM type 2 (diabetes mellitus, type 2) Status: Chronic Qualifiers: Diabetes mellitus half-way insulin use: with manager terminal use Diabetes mellitus complication status: without complication Qualified Code(s): E11.9 - Type 2 diabetes mellitus without complications; Z79.4 - extermination supervisor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; Z79.4 - snf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; Z79.4 - snf ( 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; Z79.4 - extermination supervisor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 (16) Dyslipidemia Code(s): E78.5 - HYPERLIPIDEMIA, UNSPECIFIED Status: Chronic (17) GERD (gastroesophageal reflux disease) Code(s): K21.9 - GASTRO-ESOPHAGEAL REFLUX DISEASE WITHOUT ESOPHAGITIS Status: Chronic (18) HTN (hypertension) Code(s): I10 - ESSENTIAL (PRIMARY) HYPERTENSION Status: Chronic (19) Hypoalbuminemia due to protein-calorie malnutrition Code(s): E46 - UNSPECIFIED PROTEIN-CALORIE MALNUTRITION Status: Chronic (20) Hypothyroidism Code(s): E03.9 - HYPOTHYROIDISM, UNSPECIFIED Status: Chronic (21) PVD (peripheral vascular disease) Code(s): I73.9 - PERIPHERAL VASCULAR DISEASE, UNSPECIFIED Status: Chronic (22) Protein-calorie malnutrition, moderate Code(s): E44.0 - MODERATE PROTEIN-CALORIE MALNUTRITION Status: Chronic (23) Thrombocytopenia Code(s): D69.6 - THROMBOCYTOPENIA, UNSPECIFIED Status: Chronic (24) Tobacco abuse Code(s): Z72.0 - TOBACCO USE Status: Chronic (25) Aortic stenosis Code(s): I35.0 - NONRHEUMATIC AORTIC (VALVE) STENOSIS Status: Chronic Comment: severe (26) Bacteremia due to methicillin resistant Staphylococcus aureus Code(s): R78.81 - BACTEREMIA Status: Acute Comment: Suspect Infective endocarditis and /or Diskitis (27) Gangrene of toe of right foot Code(s): I96 - GANGRENE, NOT ELSEWHERE CLASSIFIED Status: Acute (28) Cavitary lesion of lung Code(s): J98.4 - OTHER DISORDERS OF LUNG Status: Chronic Comment: Op work up done at [place] (29) UTI (urinary tract infection) Status: Acute (30) Hypokalemia Code(s): E87.6 - HYPOKALEMIA Status: Acute (31) Osteomyelitis of toe of right foot Code(s): M86.9 - OSTEOMYELITIS, UNSPECIFIED Status: Acute (32) Acute GI bleeding Code(s): K92.2 - GASTROINTESTINAL HEMORRHAGE, UNSPECIFIED Status: Acute (33) Anemia due to acute blood loss Code(s): D62 - ACUTE POSTHEMORRHAGIC ANEMIA Status: Acute (34) Hypomagnesemia Code(s): E83.42 - HYPOMAGNESEMIA Status: Acute (35) Hypotension Status: Acute (36) Discitis of cervical region Code(s): M46.42 - DISCITIS, UNSPECIFIED, CERVICAL REGION Status: Acute (37) Discitis of lumbosacral region Code(s): M46.47 - DISCITIS, UNSPECIFIED, LUMBOSACRAL REGION Status: Acute (38) Epidural abscess Code(s): G06.2 - EXTRADURAL AND SUBDURAL ABSCESS, UNSPECIFIED Status: Acute - Plan cont current plan of care, continue antibiotics, PT/OT, health care social worker * H & H is stable today, no bleeding today * will monitor today * discharge planning is in process * medication reviewed as below * symptomatic treatment * continue vancomycin. Review of Systems - Review of Systems Constitutional: negative: fever, chills, sweats, weakness, malaise, other Eyes: negative: Pain, Vision Change, Conjunctivae Inflammation, Eyelid Inflammation, Redness, Other ENT: negative: Ear Pain, Ear Discharge, Nose Pain, Nose Discharge, Nose Congestion, Mouth Pain, Mouth Swelling, Throat Pain, Throat Swelling, Other Respiratory: negative: Cough, Dry, Shortness of Breath, Hemoptysis, SOB with Excertion, Pleuritic Pain, Sputum, Wheezing Cardiovascular: negative: chest pain, palpitations, orthopnea, paroxysmal nocturnal dyspnea, edema, light headedness, other Gastrointestinal: negative: Nausea, Vomiting, Abdominal Pain, Diarrhea, Constipation, Melena, Hematochezia, Other Genitourinary: negative: Dysuria, Frequency, Incontinence, Hematuria, Retention , Other Musculoskeletal: Neck Pain, Back Pain. negative: Shoulder Pain, Arm Pain, Hand Pain, Leg Pain, Foot Pain, Other - Medications/Allergies Allergies/Adverse Reactions: Allergies Allergy/AdvReac Type Severity Reaction Status Date / Time No Known Allergies Allergy Unverified 07/23/17 10:34 Medications: Current Medications Acetaminophen (Tylenol) 650 mg PO Q4H PRN PRN Reason: Headache/Fever or Pain Last Admin: 10/29/17 13:18 Dose: 650 mg Hydrocodone Bitart/Acetaminophen (Gustavus 5/325) 1 tab PO Q6H PRN PRN Reason: Moderate Pain (4-6) Last Admin: 10/30/17 03:17 Dose: 1 tab Hydrocodone Bitart/Acetaminophen (Gustavus 5/325) 2 tab PO Q6H PRN PRN Reason: Severe Pain (7-10) Last Admin: 10/31/17 06:12 Dose: 2 tab Al Hydroxide/Mg Hydroxide (Maalox) 30 ml PO Q6H PRN PRN Reason: Heartburn or Indigestion Albuterol/Ipratropium (Duoneb) 3 ml NEB Q4CW-CB MICHAELA Last Admin: 10/31/17 07:22 Dose: 3 ml Amiodarone HCl (Cordarone) 200 mg PO BID [facility] Last Admin: 10/31/17 11:10 Dose: 200 mg Artificial Tears (Tears Naturale) 0 drop EA EYE PRN PRN PRN Reason: Dry Eyes Atorvastatin Calcium (Lipitor) 40 mg PO [facility] Last Admin: 10/30/17 20:13 Dose: 40 mg Budesonide (Pulmicort Neb Solution) 0.5 mg INH BID-RT [facility] Last Admin: 10/31/17 07:24 Dose: 0.5 mg Dextrose/Water (Dextrose 50%) 25 gm SLOW IVP PRN PRN PRN Reason: Hypoglycemia Digoxin (Lanoxin) 0.125 mg PO QAM [facility] Last Admin: 10/31/17 11:10 Dose: 0.125 mg Duloxetine HCl (Cymbalta) 30 mg PO DAILY [facility] Last Admin: 10/31/17 11:10 Dose: 30 mg Ferrous Sulfate (Feosol) 325 mg PO DAILY [facility] Last Admin: 10/31/17 11:10 Dose: 325 mg Gabapentin (Neurontin) 300 mg PO TID [facility] Last Admin: 10/31/17 11:10 Dose: 300 mg Glucagon (Glucagon) 1 mg IM PRN PRN PRN Reason: Hypoglycemia Guaifenesin (Robitussin Sf) 200 mg PO Q4H PRN PRN Reason: Cough Hydralazine HCl (Apresoline) 10 mg SLOW IVP Q4H PRN PRN Reason: Systolic BP > 180 Last Admin: 10/24/17 05:37 Dose: 10 mg Dextrose/Water (D5w) 1,000 mls @ 0 mls/hr IV .Q0M PRN; As Directed PRN Reason: Hypoglycemia Insulin Glargine 15 units/ (Miscellaneous Medication) 0.15 mls @ 0 mls/hr SC [facility] Last Admin: 10/30/17 20:13 Dose: 0.15 mls Insulin Glargine 15 units/ (Miscellaneous Medication) 0.15 mls @ 0 mls/hr [facility] Last Admin: 10/31/17 11:09 Dose: 0.15 mls Sodium Chloride (Normal Saline 0.9%) 1,000 mls @ 80 mls/hr IV .[id number] [facility] Last Admin: 10/31/17 02:20 Dose: 1,000 mls Vancomycin HCl 1 gm/ Device 200 mls @ 200 mls/hr IVPB 1800 [facility] Last Admin: 10/30/17 17:59 Dose: 200 mls Insulin Human Lispro (Humalog) 0 units SC .MODERATE SLIDING SC PRN PRN Reason: Moderate Correctional Scale Last Admin: 10/29/17 11:25 Dose: 2 unit Insulin Human Lispro (Humalog) 0 units SC .BEDTIME SLIDING SC PRN PRN Reason: Bedtime Correctional Scale Last Admin: 10/22/17 22:30 Dose: 3 unit Labetalol HCl (Normodyne) 20 mg SLOW IVP Q4H PRN PRN Reason: Systolic BP > 180 Last Admin: 10/18/17 06:33 Dose: 20 mg Lactulose (Lactulose) 20 gm PO DAILYPRN PRN PRN Reason: Constipation Lactulose (Lactulose) 30 gm PO DAILY [facility] Last Admin: 10/31/17 11:11 Dose: Not Given Levothyroxine Sodium (Synthroid) 175 mcg PO 0600 [facility] Last Admin: 10/31/17 04:59 Dose: 175 mcg Loperamide HCl (Imodium) 2 mg PO PRN PRN PRN Reason: Diarrhea/Loose Stools Loratadine (Claritin) 10 mg PO DAILYPRN PRN PRN Reason: Sinus Symptoms Magnesium Hydroxide (Milk Of Magnesium) 30 ml PO DAILYPRN PRN PRN Reason: Constipation Last Admin: 10/20/17 10:40 Dose: 30 ml Mineral Oil/White Petrolatum (Eucerin Cream) 0 gm TOP BIDPRN PRN PRN Reason: Dry Skin Miscellaneous Medication (Pharmacy To Dose) 1 each IVPB PRN PRN PRN Reason: Pharmacy to dose Nitroglycerin (Nitrostat) 0.4 mg SL Q5MIN PRN PRN Reason: Chest Pain Ondansetron HCl (Zofran Odt) 4 mg PO Q6H PRN PRN Reason: Nausea/Vomiting Last Admin: 10/29/17 13:19 Dose: 4 mg Ondansetron HCl (Zofran) 4 mg IVP Q6H PRN PRN Reason: Nausea/Vomiting Pantoprazole Sodium (Protonix) 40 mg IVP DAILY [facility] Last Admin: 10/31/17 11:09 Dose: 40 mg Phenol (Chloraseptic Al[place] 180 Ml Bot) 0 ml PO PRN PRN PRN Reason: Sore Throat Phenyleph/Shark Oil/[place] Butter (Preparation H) 1 supp IA QIDPRN PRN PRN Reason: Hemorrhoids Last Admin: 10/21/17 03:05 Dose: 1 supp Potassium Chloride (K-Dur) 20 meq PO QAM-WM [facility] Last Admin: 10/31/17 11:10 Dose: 20 meq Saccharomyces Boulardii (Florastor) 250 mg PO DAILY [facility] Last Admin: 10/31/17 11:11 Dose: 250 mg Senna (Senokot) 2 tab PO HSPRN PRN PRN Reason: Constipation Last Admin: 10/20/17 20:49 Dose: 2 tab Sodium Chloride ([place] Nasal [place] 0.65%) 0 ml EA NARE QIDPRN PRN PRN Reason: Nasal Congestion Sodium Chloride (Flush - Normal Saline) 10 ml IVF Q12HR [facility] Last Admin: 10/31/17 11:09 Dose: 10 ml Sodium Chloride (Flush - Normal Saline) 10 ml IVF PRN PRN PRN Reason: Saline Flush Thiamine HCl (Thiamine) 100 mg PO DAILY [facility] Last Admin: 10/31/17 11:09 Dose: 100 mg Trazodone HCl (Desyrel) 100 mg PO HS PRN PRN Reason: Insomnia Last Admin: 10/26/17 00:14 Dose: 100 mg
--- NOTE | 2017-10-31 13:41 | PDOC.CTH ---
<Rekha Benitez - Last Filed: 10/31/17 13:39> Cardiology Progress Note - Subjective The pt seen and examined. No overnight events. No cardiac complaints. He cont. having chronic back pain. - Objective Vital Signs Temp Pulse Resp BP Pulse Ox 10/31/17 13:36 88 18 93 L 10/31/17 11:10 77 10/31/17 08:00 98 F 77 20 135/65 96 10/31/17 07:24 78 16 96 10/31/17 07:22 78 16 96 10/31/17 02:55 98.0 F 77 14 144/67 H 95 10/31/17 01:40 96 Admit Weight 177 lb 0.499 oz Weight 205 lb 11.2 oz 10/30/17 10/31/17 11/01/17 06:59 06:59 06:59 Intake Total 3357 3404 Output Total 3160 2450 Balance 197 954 - Physical Examination General/Neuro: alert & oriented x3 Neck: no JVD present Lungs: CTA Heart: RRR Abdomen: soft Extremities: other: (No edema) - Labs Result Diagrams: 10/31/17 07:34 10/31/17 07:34 Troponin/CKMB CK-MB (CK-2) 2.9 ng/mL (0-6.6) 10/15/17 00:17 Troponin I 0.176 ng/mL (< 0.028) H 10/15/17 00:17 - Assessment/Plan 1. AFib with RVR - Converted back to SR at 0700 on 10/17/17; Remains in SR with Amiodarone 200mg BID. Off any OAC, Lovenox, or ASA due to Hematochezia 2/2 bleeding in Lt colon by nuclear bleeding scan. Cont. to monitor on tele 2. Chronic combined HF - stable; cont. to monitor 3. HTN - BP med were held due to hypotensive 2/2 Anemia. 4. Chronic Anemia - S/p 2units PRBC tx today (Total 9 units of PRBC tx.); possible colectomy by Dr Monte? 5. DM type 2 - managed by PCP 6. PVD with hx of all Lt digits and 2nd toe amputation and Rt 2nd toe gangrene - managed by PCP 7. Hx of liver dysfunction 2/2 to ETOH abuse - Sclerotic change in Liver with nodularity in Lt hepatic lobe by CT ABD. table. cont. to monitor 8. CODY - stable 9. 1.8 cm Lung mass - [facility] 10. Ex- smoker, quit in 04/2017 11. Severe - evaluated by Dr Rose in 07/2017 and the pt is not good candidate for AVR for now. 12. Epidural Abscess - neurologist consult MAR reviewed * Echo on 10/16/17 showed EF 50-55%, inferior wall jypokinesis, LVH, mod dilated LA, mild MR, mild TR, and severe with 0.87sq cm. * Possible [place] for possible endocarditis if no other source of the infection can be found Review of Systems - Review of Systems Constitutional: reports: no symptoms reported EENTM: reports: no symptoms reported Respiratory: reports: no symptoms reported Cardiac (ROS): reports: no symptoms reported ABD/GI: reports: no symptoms reported : reports: no symptoms reported Musculoskeletal: reports: see HPI <Sherie Amin - Last Filed: 11/01/17 21:09> Cardiology Progress Note - Objective Vital Signs Temp Pulse Pulse Resp BP BP BP 11/01/17 19:26 11/01/17 19:24 11/01/17 17:58 181/82 H 11/01/17 16:32 98.5 F 71 18 181/82 H 11/01/17 15:08 71 185/89 H 11/01/17 12:55 98.5 F 71 18 11/01/17 12:50 98.1 F 71 16 161/76 H 11/01/17 09:13 75 174/87 H 11/01/17 09:12 75 Pulse Ox Pulse Ox 11/01/17 19:26 92 L 11/01/17 19:24 92 L 11/01/17 17:58 11/01/17 16:32 91 L 11/01/17 15:08 91 L 11/01/17 12:55 11/01/17 12:50 91 L 11/01/17 09:13 11/01/17 09:12 Admit Weight 177 lb 0.499 oz Weight 201 lb 3.2 oz 10/31/17 11/01/17 11/02/17 06:59 06:59 06:59 Intake Total 3404 3280 240 Output Total 2450 5125 2500 Balance 382 -7172 -8646 - Labs Result Diagrams: 11/01/17 08:17 11/01/17 08:17 Troponin/CKMB CK-MB (CK-2) 2.9 ng/mL (0-6.6) 10/15/17 00:17 Troponin I 0.176 ng/mL (< 0.028) H 10/15/17 00:17 - Assessment/Plan Pt. seen and eval. by me. I agree with the A/P by the BROADCAST CORRESPONDENT. Chest clear. RRR. Murmur unchanged.
--- NOTE | 2017-10-31 17:01 | PRG ---
DATE OF SERVICE: 10/31/2017 SUBJECTIVE: John Cruz is doing well today. He has not had any further bleeding since last night. He received 2 units of blood yesterday, but none today. OBJECTIVE: VITAL SIGNS: 98 degrees, heart rate 88, 184/86. LUNGS: Clear to auscultation. CARDIAC: Regular rate and rhythm without murmur or gallop. ABDOMEN: Soft and nontender. LABORATORY DATA: Hemoglobin this morning is 7.5, it was 7.8 yesterday. This is up from 5.7 after 2 units of blood. ASSESSMENT AND PLAN: Left colon diverticular bleeding. He has had no further bleeding last 24 hours . He will continue on clear liquids. We will observe this. If he does not have anymore bleeding, gopal e will advance his diet tomorrow. Hopefully, we can avoid surgery with his known severe inoperable c oronary artery disease. He has increased risk. He would like to avoid surgery. He is a DNR.
[2017-10-31] MEDS: Vancomycin HCl 1 GM in Premix Bag 1 BAG IVPB SCH (18:50)
[2017-10-31] MEDS: Acetaminophen 325 MG TAB PO PRN (21:49)
[2017-10-31] MEDS: Atorvastatin Calcium 40 MG TAB PO SCH (21:49)
--- NOTE | 2017-11-01 00:51 | CON ---
This is Fadi Pink PA-C, dictating for Dr. Brooks Benedict. DATE OF CONSULTATION: 10/31/2017 This is a 50-minute initial patient evaluation in which greater than 50% of the exam was spent in cou nseling and coordinating patient's care. Remainder of the exam was spent in review of [facility]'s [facility] records and appropriate imaging studies. CHIEF COMPLAINT: Low back pain with cervical and lumbar spine epidural abscess. HISTORY OF PRESENT ILLNESS: Mr. Cruz is a 72-year-old male who has been admitted to [facility] for multiple medical issues. Apparently, the patient began to experience severe debilitating l ow back pain roughly 7-10 days ago. He denies any radicular complaints including leg pain. Apparent ly, the patient has a history of left toe amputation and fourth and fifth toes of the right foot ampu tated. Also, has a history of stent placement in [employer] into the left leg. He is a current every da y smoker, although states that he has quit upon admission to the hospital. He also has history of al coholism. He notes no current blood thinner usage. Review of patient's lumbar spine MRI from 2017 shows an epidural abscess and evidence of osteomyelitis at the L5-S1 level with caudal migration as far as his L1. I also review patient's cervical spine MRI shows epidural abscess collection with possible osteomyelitis at C3-C7 levels. Neurosurgery is asked to consult regarding these findings o n MRI. PHYSICAL EXAMINATION: The patient is awake, alert, and appropriate. His GCS is 15 and he is oriente d to person, place and time. He is appropriately conversant. He has some mild weakness into the ent opal right upper extremity, but good strength in the remaining extremities with the exception of no do rsiflexion or decreased dorsiflexion and plantar flexion in the left foot given previous amputation. Gait was not tested. The patient has no tenderness to palpation in the spine. IMPRESSION AND DIAGNOSES: 1. Severe low back pain with neck pain. 2. Osteomyelitis and diskitis in the cervical and lumbar spine regions. 3. Peripheral artery disease with left leg stent placement, not on blood thinners. 4. Tobacco and alcohol abuse. 5. Uncontrolled type 2 diabetes mellitus. PLAN: I discussed the patient's case and imaging with Dr. Benedict. At this time, it is important jovana t the patient remain on appropriate antibiotics. We will avoid neurosurgical intervention. I have o rdered an LSO brace for the patient to wear when he is out of bed to see if this will help improve hi s back pain. I do, however, believe that once the osteomyelitis and diskitis are under better contro l with antibiotics that his pain will improve as well. We will plan follow up with the patient in e next 4 weeks with upright AP and lateral lumbar and cervical spine x-rays. Certainly, the patient is pleased that he does not require Neurosurgery and will attempt to wear his brace. I did offer a c ervical spine collar including an [place] collar versus soft collar, but he has declined this at this t divina, and I am agreeable to this. It should be also noted I discussed smoking cessation with the elizabeth ent. Please call with any questions or changes in patient's neurologic status. Otherwise, the patie nt does not need neurosurgical intervention at this time.
[2017-11-01] MEDS: HYDROcodone/Acetaminophen 5/325 mg Tablet PO PRN ×2 (02:06→09:14)
[2017-11-01] MEDS: Sodium Chloride 0.9% 1,000 ML IV SCH (05:34)
[2017-11-01] MEDS: Levothyroxine 175 MCG TAB PO SCH (05:35)
[2017-11-01] MEDS: Budesonide 0.5 MG/2 ML NEB INH SCH ×2 (07:45→19:25)
[2017-11-01 08:21] LABS: #Eosinphils 0.1 thou/uL (0.0-0.7); #Lymphocytes 1.1 thou/uL (1.20-3.40); #Monocytes 0.7 thou/uL (0.11-0.59); #Neutrophils 3.7 thou/uL (1.40-6.50); %Basophils 0.6 % (0.0-1.0); %Eosinophils 1.2 % (0.0-10.0); %Lymphocytes 19.8 % (21.0-51.0); %Monocytes 13.1 % (0.0-10.0); %Neutrophils 65.4 % (42.0-75.0); Hemoglobin 7.7 g/dL (14.0-18.0); Mean Corpuscular HGB CONC 33.3 g/dL (32.0-36.0); Mean Corpuscular Hemoglobin 29.9 pg (27.0-31.0); Mean Corpuscular Volume 89.9 fL (78.0-98.0); Mean Platelet Volume 6.9 fL (7.4-10.4); Platelet Count 148 thou/uL (130-400); RBC Distribution Width 20.4 % (11.5-14.5); Red Blood Cell (RBC) Count 2.56 mill/uL (4.70-6.10); White Blood Cell (WBC) Count 5.7 thou/uL (4.8-10.8)
[2017-11-01 08:42] LABS: Anion Gap 11 mmol/L (10-20); BUN (Urea Nitrogen) 9 mg/dL (8.4-25.7); Calc. Creatinine Clearance 95 mL/min (70-130); Calcium 7.8 mg/dL (7.8-10.44); Carbon Dioxide 27 mmol/L (23-31); Chloride 102 mmol/L (98-107); Estimated GFR-MDRD 82; Glucose 93 mg/dL (83-110); Potassium 4.6 mmol/L (3.5-5.1); Sodium 135 mmol/L (136-145)
[2017-11-01] MEDS: Digoxin 0.125 MG TAB PO SCH (09:12)
[2017-11-01] MEDS: Gabapentin 300 MG CAP PO SCH ×3 (09:12→20:03)
[2017-11-01] MEDS: Saccharomyces boulardii 250 MG CAP PO SCH (09:13)
[2017-11-01] MEDS: DULoxetine 30 MG CAP PO SCH (09:13)
[2017-11-01] MEDS: Carvedilol 6.25 MG TAB PO SCH ×2 (09:13→17:58)
[2017-11-01] MEDS: Lisinopril 2.5 MG TAB PO SCH (09:13)
[2017-11-01] MEDS: Ferrous Sulfate 325 MG TAB PO SCH (09:14)
[2017-11-01] MEDS: Potassium Chloride 20 MEQ TAB PO SCH (09:14)
[2017-11-01] MEDS: Amiodarone 200 MG TAB PO SCH ×2 (09:14→20:03)
[2017-11-01] MEDS: Insulin Glargine 15 UNITS in Pre-Filled Syringe 1 EACH SC SCH ×2 (09:15→20:11)
--- NOTE | 2017-11-01 09:55 | PRG ---
DATE OF SERVICE: 11/01/2017 : I reviewed the notes of my colleague Fadi Pink PA-C, and agree with its content This is a 3 0-minute initial hospital visit note in which 30 minutes were spent in review the imaging, record, ev aluation and examination of patient, and formulation of a plan. Greater 50% of the time was spent in counseling. CHIEF COMPLAINT: Cervical and lumbosacral osteo diskitis with epidural spread. HISTORY OF PRESENT ILLNESS: Mr. Cruz is a 72-year-old man. He has a history of MRSA bacteremia. He presented with low back greater than neck pain and sepsis with bacteremia. MRI of the cervical and lumbar spine demonstrated C6-C7 osteo diskitis with ventral epidural spread, but no worrisome cor d compression and lumbosacral osteo discitis with epidural spread and no worrisome lumbar radicular e xtension. His low back, again, the pain is worse than his neck pain. He is also anemic and has been managed on vancomycin. Evaluating his temperature curve he has had no evidence of fever looking ene k to 10/29/2017. When I am seeing him again, his main complaint is simply low back with some leg swati n, likely due to irritation from the infectious spread into the epidural space. PHYSICAL EXAMINATION: He is alert. He is appropriate. He does appear to be significantly deconditi oned. He is able to raise both upper extremities at the shoulder antigravity above his head, but shaw s have a central deconditioned weakness throughout his upper and lower extremities. This is not true myotomal or myelopathic weakness in my opinion, but simply deconditioning. He is limited in his low er extremity exam due to pain, again, due to a radiculitis resulting from the infection. IMPRESSION AND PLAN: I have let the patient know I would not recommend any surgery in this patient given the totality of his presentation. In his case I think it best treated with bracing. He does n ot want to wear cervical collar and frankly that is his prerogative. I have even offered a soft gonzález ar, but he would prefer not to wear that as well. In regards to his low back, since that is more swati nful, we will arrange for a lumbosacral orthosis or LSO. This can be worn for comfort and when he is out of bed. We will arrange followup in my clinic with upright AP, lateral, cervical spine x-rays a nd lumbar spine x-rays in 6-8 weeks. He will continue antibiotic therapy per Dr. Wilder. DIAGNOSES: Cervical and lumbar osteodiskitis.
--- NOTE | 2017-11-01 10:14 | PDOC.PN ---
- Subjective Encounter Start Date: 11/01/17 Encounter Start Time: 09:30 Patient seen and examined. No new complaints. No overnight events he has still high level of back and neck pain and per pt current pain meds not working his H & H is stable - Objective Resuscitation Status: Resuscitation Status DNR:Do Not Resuscitate MAR Reviewed: Yes Vital Signs & Weight: Vital Signs (12 hours) Temp Pulse Resp BP BP Pulse Ox 11/01/17 09:13 75 174/87 H 11/01/17 09:12 75 11/01/17 08:00 98.8 F 75 20 174/87 H 11/01/17 07:46 92 L 11/01/17 07:45 72 16 11/01/17 03:41 98.1 F 74 14 178/81 H 94 L 11/01/17 00:13 75 14 92 L Weight Admit Weight 177 lb 0.499 oz Weight 201 lb 3.2 oz Most Recent Monitor Data Heart Rate from ECG 74 NIBP 110/67 NIBP BP-Mean 83 Respiration from ECG 17 SpO2 97 I&O: 10/31/17 11/01/17 11/02/17 06:59 06:59 06:59 Intake Total 3404 3280 Output Total 2450 5125 Balance 954 -1845 Result Diagrams: 11/01/17 08:17 11/01/17 08:17 Additional Labs: Accuchecks 11/01/17 10/31/17 10/31/17 06:32 21:03 16:47 POC Glucose 82 186 H 159 H 10/31/17 10/30/17 11:19 19:44 POC Glucose 179 H 269 H EKG Reviewed by me: Yes (nsr) Phys Exam - Physical Examination Constitutional: NAD HEENT: PERRLA, moist MMs, sclera anicteric Neck: no JVD, supple Respiratory: no wheezing, no rales, no rhonchi Cardiovascular: RRR, no rub SM+ Gastrointestinal: soft, non-tender, no distention, positive bowel sounds Musculoskeletal: no edema, pulses present Neurological: non-focal, normal sensation Lymphatic: no nodes Psychiatric: normal affect Skin: no rash, normal turgor Dx/Plan (1) Acute kidney failure Status: Resolved (2) Atrial fibrillation with rapid ventricular response Code(s): I48.91 - UNSPECIFIED ATRIAL FIBRILLATION Status: Acute Comment: controlled, now nsr, on oral amiodaron, not a candidate for chronic anticoagulation due to GI bleeding (3) Demand ischemia of myocardium Code(s): I24.8 - OTHER FORMS OF ACUTE ISCHEMIC HEART DISEASE Status: Acute (4) Hematuria, gross Status: Resolved Comment: s/p Viramontes by urology w dorsal slit (5) Hyponatremia Code(s): E87.1 - HYPO-OSMOLALITY AND HYPONATREMIA Status: Resolved (6) Lactic acidosis Code(s): E87.2 - ACIDOSIS Status: Resolved (7) Sepsis with acute organ dysfunction Code(s): A41.9 - SEPSIS, UNSPECIFIED ORGANISM; R65.20 - SEVERE SEPSIS WITHOUT SEPTIC SHOCK Status: Resolved (8) Splenic infarct Code(s): D73.5 - INFARCTION OF SPLEEN Status: Acute Comment: ? septic embolization (9) 3-vessel CAD Status: Chronic (10) Alcoholic cirrhosis of liver Code(s): K70.30 - ALCOHOLIC CIRRHOSIS OF LIVER WITHOUT ASCITES Status: Chronic Qualifiers: Ascites presence: without ascites Qualified Code(s): K70.30 - Alcoholic cirrhosis of liver without ascites (11) Anemia, macrocytic Code(s): D53.9 - NUTRITIONAL ANEMIA, UNSPECIFIED Status: Chronic (12) Anxiety and depression Code(s): F41.9 - ANXIETY DISORDER, UNSPECIFIED; F32.9 - MAJOR DEPRESSIVE DISORDER, SINGLE EPISODE, UNSPECIFIED Status: Chronic (13) COPD (chronic obstructive pulmonary disease) Status: Chronic (14) Chronic combined systolic and diastolic CHF (congestive heart failure) Code(s): I50.42 - CHRONIC COMBINED SYSTOLIC AND DIASTOLIC HRT FAIL Status: Chronic Comment: Compensated for now (15) DM type 2 (diabetes mellitus, type 2) Status: Chronic Qualifiers: Diabetes mellitus copper plater insulin use: with mcc use Diabetes mellitus complication status: without complication Qualified Code(s): E11.9 - Type 2 diabetes mellitus without complications; Z79.4 - manager database administration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; Z79.4 - manager database administration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; Z79.4 - residential ( 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; Z79.4 - residential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 (16) Dyslipidemia Code(s): E78.5 - HYPERLIPIDEMIA, UNSPECIFIED Status: Chronic (17) GERD (gastroesophageal reflux disease) Code(s): K21.9 - GASTRO-ESOPHAGEAL REFLUX DISEASE WITHOUT ESOPHAGITIS Status: Chronic (18) HTN (hypertension) Code(s): I10 - ESSENTIAL (PRIMARY) HYPERTENSION Status: Chronic (19) Hypoalbuminemia due to protein-calorie malnutrition Code(s): E46 - UNSPECIFIED PROTEIN-CALORIE MALNUTRITION Status: Chronic (20) Hypothyroidism Code(s): E03.9 - HYPOTHYROIDISM, UNSPECIFIED Status: Chronic (21) PVD (peripheral vascular disease) Code(s): I73.9 - PERIPHERAL VASCULAR DISEASE, UNSPECIFIED Status: Chronic (22) Protein-calorie malnutrition, moderate Code(s): E44.0 - MODERATE PROTEIN-CALORIE MALNUTRITION Status: Chronic (23) Thrombocytopenia Code(s): D69.6 - THROMBOCYTOPENIA, UNSPECIFIED Status: Chronic (24) Tobacco abuse Code(s): Z72.0 - TOBACCO USE Status: Chronic (25) Aortic stenosis Code(s): I35.0 - NONRHEUMATIC AORTIC (VALVE) STENOSIS Status: Chronic Comment: severe (26) Bacteremia due to methicillin resistant Staphylococcus aureus Code(s): R78.81 - BACTEREMIA Status: Acute Comment: Suspect Infective endocarditis and /or Diskitis (27) Gangrene of toe of right foot Code(s): I96 - GANGRENE, NOT ELSEWHERE CLASSIFIED Status: Acute (28) Cavitary lesion of lung Code(s): J98.4 - OTHER DISORDERS OF LUNG Status: Chronic Comment: Op work up done at [place] (29) UTI (urinary tract infection) Status: Acute (30) Hypokalemia Code(s): E87.6 - HYPOKALEMIA Status: Acute (31) Osteomyelitis of toe of right foot Code(s): M86.9 - OSTEOMYELITIS, UNSPECIFIED Status: Acute (32) Acute GI bleeding Code(s): K92.2 - GASTROINTESTINAL HEMORRHAGE, UNSPECIFIED Status: Acute (33) Anemia due to acute blood loss Code(s): D62 - ACUTE POSTHEMORRHAGIC ANEMIA Status: Acute (34) Hypomagnesemia Code(s): E83.42 - HYPOMAGNESEMIA Status: Acute (35) Hypotension Status: Acute (36) Discitis of cervical region Code(s): M46.42 - DISCITIS, UNSPECIFIED, CERVICAL REGION Status: Acute (37) Discitis of lumbosacral region Code(s): M46.47 - DISCITIS, UNSPECIFIED, LUMBOSACRAL REGION Status: Acute (38) Epidural abscess Code(s): G06.2 - EXTRADURAL AND SUBDURAL ABSCESS, UNSPECIFIED Status: Acute - Plan cont current plan of care, continue antibiotics, PT/OT, health care social worker * pt remained in NSR for several days, on oral amiodaron and he can not have oral AC due to his bleeding * will add morphin for pain control * he now needs discharge planning * will dc tele * transfer to medical * now BP is high, so will add lisinopril and coreg * continue vancomycin * PT/OT * as per neurosurgery, no plan for surgery but TLSA and cervical collar * as per surgeon, will try to avoid surgery as much as possible due to high risk. Review of Systems - Review of Systems Constitutional: negative: fever, chills, sweats, weakness, malaise, other Eyes: negative: Pain, Vision Change, Conjunctivae Inflammation, Eyelid Inflammation, Redness, Other ENT: negative: Ear Pain, Ear Discharge, Nose Pain, Nose Discharge, Nose Congestion, Mouth Pain, Mouth Swelling, Throat Pain, Throat Swelling, Other Respiratory: negative: Cough, Dry, Shortness of Breath, Hemoptysis, SOB with Excertion, Pleuritic Pain, Sputum, Wheezing Cardiovascular: negative: chest pain, palpitations, orthopnea, paroxysmal nocturnal dyspnea, edema, light headedness, other Gastrointestinal: negative: Nausea, Vomiting, Abdominal Pain, Diarrhea, Constipation, Melena, Hematochezia, Other Genitourinary: negative: Dysuria, Frequency, Incontinence, Hematuria, Retention , Other Musculoskeletal: Neck Pain, Back Pain. negative: Shoulder Pain, Arm Pain, Hand Pain, Leg Pain, Foot Pain, Other Skin: negative: Rash, Lesions, Arnoldo, Bruising, Other - Medications/Allergies Allergies/Adverse Reactions: Allergies Allergy/AdvReac Type Severity Reaction Status Date / Time No Known Allergies Allergy Unverified 07/23/17 10:34 Medications: Current Medications Acetaminophen (Tylenol) 650 mg PO Q4H PRN PRN Reason: Headache/Fever or Pain Last Admin: 10/31/17 21:49 Dose: 650 mg Hydrocodone Bitart/Acetaminophen ([place] 5/325) 1 tab PO Q6H PRN PRN Reason: Moderate Pain (4-6) Last Admin: 10/30/17 03:17 Dose: 1 tab Hydrocodone Bitart/Acetaminophen ([place] 5/325) 2 tab PO Q6H PRN PRN Reason: Severe Pain (7-10) Last Admin: 11/01/17 09:14 Dose: 2 tab Al Hydroxide/Mg Hydroxide (Maalox) 30 ml PO Q6H PRN PRN Reason: Heartburn or Indigestion Albuterol/Ipratropium (Duoneb) 3 ml NEB [id number] [facility] Last Admin: 11/01/17 07:45 Dose: 3 ml Amiodarone HCl (Cordarone) 200 mg PO BID [facility] Last Admin: 11/01/17 09:14 Dose: 200 mg Artificial Tears (Tears Naturale) 0 drop EA EYE PRN PRN PRN Reason: Dry Eyes Atorvastatin Calcium (Lipitor) 40 mg PO HS [facility] Last Admin: 10/31/17 21:49 Dose: 40 mg Budesonide (Pulmicort Neb Solution) 0.5 mg INH BID-RT [facility] Last Admin: 11/01/17 07:45 Dose: 0.5 mg Carvedilol (Coreg) 6.25 mg PO BID-WM [facility] Last Admin: 11/01/17 09:13 Dose: 6.25 mg Dextrose/Water (Dextrose 50%) 25 gm SLOW IVP PRN PRN PRN Reason: Hypoglycemia Digoxin (Lanoxin) 0.125 mg PO QAM [facility] Last Admin: 11/01/17 09:12 Dose: 0.125 mg Duloxetine HCl (Cymbalta) 30 mg PO DAILY [facility] Last Admin: 11/01/17 09:13 Dose: 30 mg Ferrous Sulfate (Feosol) 325 mg PO DAILY [facility] Last Admin: 11/01/17 09:14 Dose: 325 mg Gabapentin (Neurontin) 300 mg PO TID [facility] Last Admin: 11/01/17 09:12 Dose: 300 mg Glucagon (Glucagon) 1 mg IM PRN PRN PRN Reason: Hypoglycemia Guaifenesin (Robitussin Sf) 200 mg PO Q4H PRN PRN Reason: Cough Hydralazine HCl (Apresoline) 10 mg SLOW IVP Q4H PRN PRN Reason: Systolic BP > 180 Last Admin: 10/24/17 05:37 Dose: 10 mg Dextrose/Water (D5w) 1,000 mls @ 0 mls/hr IV .Q0M PRN; As Directed PRN Reason: Hypoglycemia Insulin Glargine 15 units/ (Miscellaneous Medication) 0.15 mls @ 0 mls/hr SC HS [facility] Last Admin: 10/31/17 21:49 Dose: 0.15 mls Insulin Glargine 15 units/ (Miscellaneous Medication) 0.15 mls @ 0 mls/hr SC QAM [facility] Last Admin: 10/31/17 11:09 Dose: 0.15 mls Vancomycin HCl 1 gm/ Device 200 mls @ 200 mls/hr IVPB 1800 [facility] Last Admin: 10/31/17 18:50 Dose: 200 mls Insulin Human Lispro (Humalog) 0 units SC .MODERATE SLIDING SC PRN PRN Reason: Moderate Correctional Scale Last Admin: 10/29/17 11:25 Dose: 2 unit Insulin Human Lispro (Humalog) 0 units SC .BEDTIME SLIDING SC PRN PRN Reason: Bedtime Correctional Scale Last Admin: 10/22/17 22:30 Dose: 3 unit Labetalol HCl (Normodyne) 20 mg SLOW IVP Q4H PRN PRN Reason: Systolic BP > 180 Last Admin: 10/18/17 06:33 Dose: 20 mg Lactulose (Lactulose) 20 gm PO DAILYPRN PRN PRN Reason: Constipation Lactulose (Lactulose) 30 gm PO DAILY [facility] Last Admin: 10/31/17 11:11 Dose: Not Given Levothyroxine Sodium (Synthroid) 175 mcg PO 0600 [facility] Last Admin: 11/01/17 05:35 Dose: 175 mcg Lisinopril (Zestril) 2.5 mg PO DAILY [facility] Last Admin: 11/01/17 09:13 Dose: 2.5 mg Loperamide HCl (Imodium) 2 mg PO PRN PRN PRN Reason: Diarrhea/Loose Stools Loratadine (Claritin) 10 mg PO DAILYPRN PRN PRN Reason: Sinus Symptoms Magnesium Hydroxide (Milk Of Magnesium) 30 ml PO DAILYPRN PRN PRN Reason: Constipation Last Admin: 10/20/17 10:40 Dose: 30 ml Mineral Oil/White Petrolatum (Eucerin Cream) 0 gm TOP BIDPRN PRN PRN Reason: Dry Skin Miscellaneous Medication (Pharmacy To Dose) 1 each IVPB PRN PRN PRN Reason: Pharmacy to dose Nitroglycerin (Nitrostat) 0.4 mg SL Q5MIN PRN PRN Reason: Chest Pain Ondansetron HCl (Zofran Odt) 4 mg PO Q6H PRN PRN Reason: Nausea/Vomiting Last Admin: 10/29/17 13:19 Dose: 4 mg Ondansetron HCl (Zofran) 4 mg IVP Q6H PRN PRN Reason: Nausea/Vomiting Pantoprazole Sodium (Protonix) 40 mg PO DAILY [facility] Last Admin: 11/01/17 09:13 Dose: 40 mg Phenol (Chloraseptic [place] 180 Ml Bot) 0 ml PO PRN PRN PRN Reason: Sore Throat Phenyleph/Shark Oil/[place]wood Butter (Preparation H) 1 supp OK QIDPRN PRN PRN Reason: Hemorrhoids Last Admin: 10/21/17 03:05 Dose: 1 supp Potassium Chloride (K-Dur) 20 meq PO QAM[facility] Last Admin: 11/01/17 09:14 Dose: 20 meq Saccharomyces Boulardii (Florastor) 250 mg PO DAILY [facility] Last Admin: 11/01/17 09:13 Dose: 250 mg Senna (Senokot) 2 tab PO HSPRN PRN PRN Reason: Constipation Last Admin: 10/20/17 20:49 Dose: 2 tab Sodium Chloride ([place] Nasal [place] 0.65%) 0 ml EA NARE QIDPRN PRN PRN Reason: Nasal Congestion Sodium Chloride (Flush - Normal Saline) 10 ml IVF Q12HR [facility] Last Admin: 10/31/17 21:50 Dose: Not Given Sodium Chloride (Flush - Normal Saline) 10 ml IVF PRN PRN PRN Reason: Saline Flush Thiamine HCl (Thiamine) 100 mg PO DAILY [facility] Last Admin: 11/01/17 09:12 Dose: 100 mg Trazodone HCl (Desyrel) 100 mg PO HS PRN PRN Reason: Insomnia Last Admin: 10/26/17 00:14 Dose: 100 mg
[2017-11-01] MEDS ORDERED: Morphine 4 MG/ML Carpuject SLOW IVP PRN (10:18)
[2017-11-01 12:08] VITALS: BMI 27.3
--- NOTE | 2017-11-01 14:08 | PDOC.CTH ---
<Rekha Benitez - Last Filed: 11/01/17 14:08> Cardiology Progress Note - Subjective The pt seen and examined. No overnight events. No cardiac complaints. He stated his back pain is slightly stable with Morphine; however, he could not tolerate brace. - Objective Vital Signs Temp Pulse Pulse Pulse Resp BP BP 11/01/17 09:13 75 174/87 H 11/01/17 09:12 75 11/01/17 08:26 84 75 173/81 H 11/01/17 08:00 98.8 F 75 20 11/01/17 07:46 11/01/17 07:45 72 16 11/01/17 03:41 98.1 F 74 14 BP BP Pulse Ox 11/01/17 09:13 11/01/17 09:12 11/01/17 08:26 174/87 H 11/01/17 08:00 174/87 H 11/01/17 07:46 92 L 11/01/17 07:45 11/01/17 03:41 178/81 H 94 L Admit Weight 177 lb 0.499 oz Weight 201 lb 3.2 oz 10/31/17 11/01/17 11/02/17 06:59 06:59 06:59 Intake Total 3404 3280 Output Total 2450 5125 Balance 954 -1845 - Physical Examination General/Neuro: alert & oriented x3 Neck: no JVD present Lungs: CTA Heart: RRR Abdomen: soft Extremities: other: (generalized edema) - Labs Result Diagrams: 11/01/17 08:17 11/01/17 08:17 Troponin/CKMB CK-MB (CK-2) 2.9 ng/mL (0-6.6) 10/15/17 00:17 Troponin I 0.176 ng/mL (< 0.028) H 10/15/17 00:17 - Assessment/Plan 1. AFib with RVR - Converted back to SR at 0700 on 10/17/17; Remains in SR with Amiodarone 200mg BID. Off any OAC, Lovenox, or ASA due to Hematochezia 2/2 bleeding in Lt colon by nuclear bleeding scan. Cont. to monitor on tele 2. Chronic combined HF - Start Lasix 20mg daily for worsening of generalized edema; cont. to monitor 3. HTN - Elevated today. Coreg and Lisinopril were resumed from today 4. Chronic Anemia - S/p 2units PRBC tx today (Total 9 units of PRBC tx.); Colectomy is on hold due to high risk. 5. DM type 2 - managed by PCP 6. PVD with hx of all Lt digits and 2nd toe amputation and Rt 2nd toe gangrene - managed by PCP 7. Hx of liver dysfunction 2/2 to ETOH abuse - Sclerotic change in Liver with nodular in Lt hepatic lobe by CT ABD. table. cont. to monitor 8. CODY - stable 9. 1.8 cm Lung mass - [facility] 10. Ex- smoker, quit in 04/2017 11. Severe - evaluated by Dr Rose in 07/2017 and the pt is not good candidate for AVR for now. 12. Epidural Abscess - no plan for surgery per neurosurgery; but TLSA and cervical collar MAR reviewed * Echo on 10/16/17 showed EF 50-55%, inferior wall jypokinesis, LVH, mod dilated LA, mild MR, mild TR, and severe with 0.87sq cm. Review of Systems - Review of Systems Constitutional: reports: weakness EENTM: reports: no symptoms reported Respiratory: reports: no symptoms reported Cardiac (ROS): reports: no symptoms reported ABD/GI: reports: no symptoms reported : reports: no symptoms reported Musculoskeletal: reports: back pain Skin: reports: no symptoms reported <Sherie Amin - Last Filed: 11/01/17 21:12> Cardiology Progress Note - Objective Vital Signs Temp Pulse Pulse Resp BP BP BP 11/01/17 19:26 11/01/17 19:24 11/01/17 17:58 181/82 H 11/01/17 16:32 98.5 F 71 18 181/82 H 11/01/17 15:08 71 185/89 H 11/01/17 12:55 98.5 F 71 18 11/01/17 12:50 98.1 F 71 16 161/76 H 11/01/17 09:13 75 174/87 H 11/01/17 09:12 75 Pulse Ox Pulse Ox 11/01/17 19:26 92 L 11/01/17 19:24 92 L 11/01/17 17:58 11/01/17 16:32 91 L 11/01/17 15:08 91 L 11/01/17 12:55 11/01/17 12:50 91 L 11/01/17 09:13 11/01/17 09:12 Admit Weight 177 lb 0.499 oz Weight 201 lb 3.2 oz 10/31/17 11/01/17 11/02/17 06:59 06:59 06:59 Intake Total 3404 3280 240 Output Total 2450 5125 2500 Balance 968 -9403 -5783 - Labs Result Diagrams: 11/01/17 08:17 11/01/17 08:17 Troponin/CKMB CK-MB (CK-2) 2.9 ng/mL (0-6.6) 10/15/17 00:17 Troponin I 0.176 ng/mL (< 0.028) H 10/15/17 00:17 - Assessment/Plan Pt. seen and eval. by me. I agree with the A/P by the UTILITY GELATIN MAKER. Pt. with multiple medical probelems. The cardiac status is stable for now. I will sign off. If any cardiac changes please contact me again and I will be happy to see him again.
[2017-11-01] MEDS ORDERED: Furosemide 20 MG TAB PO SCH (15:45)
[2017-11-01 17:38] LABS: Vancomycin, Trough 20.3 ug/mL
[2017-11-01] MEDS: Vancomycin HCl 1 GM in Premix Bag 1 BAG IVPB SCH (17:58)
--- NOTE | 2017-11-01 19:16 | PRG ---
DATE OF SERVICE: 11/01/2017 SUBJECTIVE: Mr. Cruz is still having some pain in the C-spine, low back area. No shortness of steven ath, no abdominal pain, no diarrhea. He is voiding with an indwelling Viramontes catheter. OBJECTIVE: VITAL SIGNS: With T-max 98.8, blood pressure 180/89, pulse 71, respirations 16, O2 sat 91% to 94%. SKIN: Not remarkable. No lymphadenopathy. HEENT: Ocular movements conjugate. NECK: Supple. LUNGS: Symmetric air entry. . CARDIOVASCULAR: S1, S2, regular rate, soft aortic murmur 2/6. ABDOMEN: Soft, not tender. No ascites. EXTREMITIES: He is able to move all extremities on command. LABORATORY DATA: His white cell count is 5.7, hemoglobin 7.7, platelets 148 and creatinine 0.91. Ur inalysis with 7-10 wbc's. Microbiology with MRSA from 10/14/2017. ASSESSMENT AND DISCUSSION: Liver cirrhosis secondary to alcoholism, coronary artery disease with low ejection fraction, methicillin-resistant Staphylococcus aureus bacteremia with lung disease, cavitar y lesions from MRSA, septic pneumonia, splenic lesions, ischemic fourth toe and the C-spine and lumbo sacral spine infection. Neurosurgery has evaluated the patient and recommended continuation of conse rvative management. The plan is to continue IV vancomycin for a protracted period of time. The end date of therapy is calculated around 12/11/2017, weekly labs to continue with CBC, CRP, CMP and vanco mycin trough, may need to repeat MRI imaging studies at the end of therapy to verify improvement. Co ntinue monitoring neurological status to make sure there is no developing or worsening in his spinal stenosis from the inflammatory process.
[2017-11-01] MEDS: Atorvastatin Calcium 40 MG TAB PO SCH (20:57)
[2017-11-02 05:22] LABS: Anion Gap 10 mmol/L (10-20); BUN (Urea Nitrogen) 10 mg/dL (8.4-25.7); Calc. Creatinine Clearance 100 mL/min (70-130); Calcium 8.1 mg/dL (7.8-10.44); Carbon Dioxide 31 mmol/L (23-31); Chloride 94 mmol/L (98-107); Estimated GFR-MDRD 87; Glucose 166 mg/dL (83-110); Potassium 4.7 mmol/L (3.5-5.1); Sodium 130 mmol/L (136-145)
[2017-11-02 05:24] LABS: #Eosinphils 0.1 thou/uL (0.0-0.7); #Monocytes 0.7 thou/uL (0.11-0.59); #Neutrophils 4.1 thou/uL (1.40-6.50); %Basophils 0.5 % (0.0-1.0); %Eosinophils 1.2 % (0.0-10.0); %Monocytes 11.9 % (0.0-10.0); %Neutrophils 69.4 % (42.0-75.0); Hemoglobin 7.9 g/dL (14.0-18.0); Mean Corpuscular HGB CONC 32.3 g/dL (32.0-36.0); Mean Corpuscular Hemoglobin 29.3 pg (27.0-31.0); Mean Corpuscular Volume 90.8 fL (78.0-98.0); Mean Platelet Volume 7.7 fL (7.4-10.4); Platelet Count 146 thou/uL (130-400); RBC Distribution Width 20.8 % (11.5-14.5); Red Blood Cell (RBC) Count 2.71 mill/uL (4.70-6.10); White Blood Cell (WBC) Count 5.9 thou/uL (4.8-10.8)
[2017-11-02] MEDS: Levothyroxine 175 MCG TAB PO SCH (06:08)
[2017-11-02] MEDS: Budesonide 0.5 MG/2 ML NEB INH SCH ×2 (06:21→18:42)
[2017-11-02 08:39] LABS: Hemoglobin 7.6 g/dL (14.0-18.0)
[2017-11-02] MEDS: DULoxetine 30 MG CAP PO SCH (09:37)
[2017-11-02] MEDS: Saccharomyces boulardii 250 MG CAP PO SCH (09:37)
[2017-11-02] MEDS: Potassium Chloride 20 MEQ TAB PO SCH (09:37)
[2017-11-02] MEDS: Furosemide 20 MG TAB PO SCH (09:37)
[2017-11-02] MEDS: Ferrous Sulfate 325 MG TAB PO SCH (09:38)
[2017-11-02] MEDS: Gabapentin 300 MG CAP PO SCH ×3 (09:38→21:18)
[2017-11-02] MEDS: Insulin Glargine 15 UNITS in Pre-Filled Syringe 1 EACH SC SCH ×2 (09:40→21:18)
--- NOTE | 2017-11-02 10:45 | PDOC.PN ---
- Subjective Encounter Start Date: 11/02/17 Encounter Start Time: 08:20 Patient seen and examined. No new complaints. No overnight events - Objective Resuscitation Status: Resuscitation Status DNR:Do Not Resuscitate MAR Reviewed: Yes Vital Signs & Weight: Vital Signs (12 hours) Temp Pulse Resp BP BP Pulse Ox 11/02/17 07:28 96.9 F L 75 16 127/81 96 11/02/17 06:24 96 11/02/17 06:23 96 11/02/17 06:21 96 11/02/17 03:20 98.2 F 70 19 138/76 92 L 11/02/17 03:15 88 L 11/02/17 00:00 18 11/01/17 23:13 91 L Weight Admit Weight 177 lb 0.499 oz Weight 201 lb 3.2 oz Most Recent Monitor Data Heart Rate from ECG 74 NIBP 110/67 NIBP BP-Mean 83 Respiration from ECG 17 SpO2 97 I&O: 11/01/17 11/02/17 11/03/17 06:59 06:59 06:59 Intake Total 3280 740 Output Total 5125 7000 Balance -2105 -2719 Result Diagrams: 11/02/17 08:27 11/02/17 04:26 Additional Labs: Accuchecks 11/02/17 11/01/17 11/01/17 06:10 20:13 16:34 POC Glucose 158 H 195 H 126 H 11/01/17 10:36 POC Glucose 174 H Phys Exam - Physical Examination Constitutional: NAD HEENT: PERRLA, moist MMs, sclera anicteric Neck: no JVD, supple Respiratory: no wheezing, no rales, no rhonchi Cardiovascular: RRR, no rub SM+ Gastrointestinal: soft, non-tender, no distention, positive bowel sounds Musculoskeletal: no edema, pulses present Neurological: non-focal, normal sensation Lymphatic: no nodes Psychiatric: normal affect, A&O x 3 Skin: no rash, normal turgor Dx/Plan (1) Acute kidney failure Status: Resolved (2) Atrial fibrillation with rapid ventricular response Code(s): I48.91 - UNSPECIFIED ATRIAL FIBRILLATION Status: Acute Comment: controlled, now nsr, on oral amiodaron, not a candidate for chronic anticoagulation due to GI bleeding (3) Demand ischemia of myocardium Code(s): I24.8 - OTHER FORMS OF ACUTE ISCHEMIC HEART DISEASE Status: Acute (4) Hematuria, gross Status: Resolved Comment: s/p [place] by urology w dorsal slit (5) Hyponatremia Code(s): E87.1 - HYPO-OSMOLALITY AND HYPONATREMIA Status: Resolved (6) Lactic acidosis Code(s): E87.2 - ACIDOSIS Status: Resolved (7) Sepsis with acute organ dysfunction Code(s): A41.9 - SEPSIS, UNSPECIFIED ORGANISM; R65.20 - SEVERE SEPSIS WITHOUT SEPTIC SHOCK Status: Resolved (8) Splenic infarct Code(s): D73.5 - INFARCTION OF SPLEEN Status: Acute Comment: ? septic embolization (9) 3-vessel CAD Status: Chronic (10) Alcoholic cirrhosis of liver Code(s): K70.30 - ALCOHOLIC CIRRHOSIS OF LIVER WITHOUT ASCITES Status: Chronic Qualifiers: Ascites presence: without ascites Qualified Code(s): K70.30 - Alcoholic cirrhosis of liver without ascites (11) Anemia, macrocytic Code(s): D53.9 - NUTRITIONAL ANEMIA, UNSPECIFIED Status: Chronic (12) Anxiety and depression Code(s): F41.9 - ANXIETY DISORDER, UNSPECIFIED; F32.9 - MAJOR DEPRESSIVE DISORDER, SINGLE EPISODE, UNSPECIFIED Status: Chronic (13) COPD (chronic obstructive pulmonary disease) Status: Chronic (14) Chronic combined systolic and diastolic CHF (congestive heart failure) Code(s): I50.42 - CHRONIC COMBINED SYSTOLIC AND DIASTOLIC HRT FAIL Status: Chronic Comment: Compensated for now (15) DM type 2 (diabetes mellitus, type 2) Status: Chronic Qualifiers: Diabetes mellitus shelter insulin use: with dedicated intermodal truck driver use Diabetes mellitus complication status: without complication Qualified Code(s): E11.9 - Type 2 diabetes mellitus without complications; Z79.4 - long term care social worker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; Z79.4 - long term care social worker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; Z79.4 - care home ( 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; Z79.4 - long term care social worker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 (16) Dyslipidemia Code(s): E78.5 - HYPERLIPIDEMIA, UNSPECIFIED Status: Chronic (17) GERD (gastroesophageal reflux disease) Code(s): K21.9 - GASTRO-ESOPHAGEAL REFLUX DISEASE WITHOUT ESOPHAGITIS Status: Chronic (18) HTN (hypertension) Code(s): I10 - ESSENTIAL (PRIMARY) HYPERTENSION Status: Chronic (19) Hypoalbuminemia due to protein-calorie malnutrition Code(s): E46 - UNSPECIFIED PROTEIN-CALORIE MALNUTRITION Status: Chronic (20) Hypothyroidism Code(s): E03.9 - HYPOTHYROIDISM, UNSPECIFIED Status: Chronic (21) PVD (peripheral vascular disease) Code(s): I73.9 - PERIPHERAL VASCULAR DISEASE, UNSPECIFIED Status: Chronic (22) Protein-calorie malnutrition, moderate Code(s): E44.0 - MODERATE PROTEIN-CALORIE MALNUTRITION Status: Chronic (23) Thrombocytopenia Code(s): D69.6 - THROMBOCYTOPENIA, UNSPECIFIED Status: Chronic (24) Tobacco abuse Code(s): Z72.0 - TOBACCO USE Status: Chronic (25) Aortic stenosis Code(s): I35.0 - NONRHEUMATIC AORTIC (VALVE) STENOSIS Status: Chronic Comment: severe (26) Bacteremia due to methicillin resistant Staphylococcus aureus Code(s): R78.81 - BACTEREMIA Status: Acute Comment: Suspect Infective endocarditis and /or Diskitis (27) Gangrene of toe of right foot Code(s): I96 - GANGRENE, NOT ELSEWHERE CLASSIFIED Status: Acute (28) Cavitary lesion of lung Code(s): J98.4 - OTHER DISORDERS OF LUNG Status: Chronic Comment: Op work up done at [place] (29) UTI (urinary tract infection) Status: Acute (30) Hypokalemia Code(s): E87.6 - HYPOKALEMIA Status: Acute (31) Osteomyelitis of toe of right foot Code(s): M86.9 - OSTEOMYELITIS, UNSPECIFIED Status: Acute (32) Acute GI bleeding Code(s): K92.2 - GASTROINTESTINAL HEMORRHAGE, UNSPECIFIED Status: Acute (33) Anemia due to acute blood loss Code(s): D62 - ACUTE POSTHEMORRHAGIC ANEMIA Status: Acute (34) Hypomagnesemia Code(s): E83.42 - HYPOMAGNESEMIA Status: Acute (35) Hypotension Status: Acute (36) Discitis of cervical region Code(s): M46.42 - DISCITIS, UNSPECIFIED, CERVICAL REGION Status: Acute (37) Discitis of lumbosacral region Code(s): M46.47 - DISCITIS, UNSPECIFIED, LUMBOSACRAL REGION Status: Acute (38) Epidural abscess Code(s): G06.2 - EXTRADURAL AND SUBDURAL ABSCESS, UNSPECIFIED Status: Acute - Plan cont current plan of care, 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 * h & h is stable for now Review of Systems - Review of Systems Constitutional: negative: fever, chills, sweats, weakness, malaise, other Eyes: negative: Pain, Vision Change, Conjunctivae Inflammation, Eyelid Inflammation, Redness, Other ENT: negative: Ear Pain, Ear Discharge, Nose Pain, Nose Discharge, Nose Congestion, Mouth Pain, Mouth Swelling, Throat Pain, Throat Swelling, Other Respiratory: negative: Cough, Dry, Shortness of Breath, Hemoptysis, SOB with Excertion, Pleuritic Pain, Sputum, Wheezing Cardiovascular: negative: chest pain, palpitations, orthopnea, paroxysmal nocturnal dyspnea, edema, light headedness, other Gastrointestinal: negative: Nausea, Vomiting, Abdominal Pain, Diarrhea, Constipation, Melena, Hematochezia, Other Genitourinary: negative: Dysuria, Frequency, Incontinence, Hematuria, Retention , Other Musculoskeletal: Neck Pain, Back Pain. negative: Shoulder Pain, Arm Pain, Hand Pain, Leg Pain, Foot Pain, Other - Medications/Allergies Allergies/Adverse Reactions: Allergies Allergy/AdvReac Type Severity Reaction Status Date / Time No Known Allergies Allergy Unverified 07/23/17 10:34 Medications: Current Medications Acetaminophen (Tylenol) 650 mg PO Q4H PRN PRN Reason: Headache/Fever or Pain Last Admin: 10/31/17 21:49 Dose: 650 mg Hydrocodone Bitart/Acetaminophen ([place] 5/325) 1 tab PO Q6H PRN PRN Reason: Moderate Pain (4-6) Last Admin: 10/30/17 03:17 Dose: 1 tab Hydrocodone Bitart/Acetaminophen ([place] 5/325) 2 tab PO Q6H PRN PRN Reason: Severe Pain (7-10) Last Admin: 11/01/17 09:14 Dose: 2 tab Al Hydroxide/Mg Hydroxide (Maalox) 30 ml PO Q6H PRN PRN Reason: Heartburn or Indigestion Albuterol/Ipratropium (Duoneb) 3 ml NEB [id number] MICHAELA Last Admin: 11/02/17 06:23 Dose: 3 ml Amiodarone HCl (Cordarone) 200 mg PO BID [facility] Last Admin: 11/01/17 20:03 Dose: 200 mg Artificial Tears (Tears Naturale) 0 drop EA EYE PRN PRN PRN Reason: Dry Eyes Atorvastatin Calcium (Lipitor) 40 mg PO HS [facility] Last Admin: 11/01/17 20:57 Dose: 40 mg Budesonide (Pulmicort Neb Solution) 0.5 mg INH BID-RT [facility] Last Admin: 11/02/17 06:21 Dose: 0.5 mg Carvedilol (Coreg) 6.25 mg PO BID-WM [facility] Last Admin: 11/01/17 17:58 Dose: 6.25 mg Dextrose/Water (Dextrose 50%) 25 gm SLOW IVP PRN PRN PRN Reason: Hypoglycemia Digoxin (Lanoxin) 0.125 mg PO QAM [facility] Last Admin: 11/01/17 09:12 Dose: 0.125 mg Duloxetine HCl (Cymbalta) 30 mg PO DAILY [facility] Last Admin: 11/02/17 09:37 Dose: 30 mg Ferrous Sulfate (Feosol) 325 mg PO DAILY [facility] Last Admin: 11/02/17 09:38 Dose: 325 mg Furosemide (Lasix) 20 mg PO DAILY [facility] Last Admin: 11/02/17 09:37 Dose: 20 mg Gabapentin (Neurontin) 300 mg PO TID [facility] Last Admin: 11/02/17 09:38 Dose: 300 mg Glucagon (Glucagon) 1 mg IM PRN PRN PRN Reason: Hypoglycemia Guaifenesin (Robitussin Sf) 200 mg PO Q4H PRN PRN Reason: Cough Hydralazine HCl (Apresoline) 10 mg SLOW IVP Q4H PRN PRN Reason: Systolic BP > 180 Last Admin: 10/24/17 05:37 Dose: 10 mg Dextrose/Water (D5w) 1,000 mls @ 0 mls/hr IV .Q0M PRN; As Directed PRN Reason: Hypoglycemia Insulin Glargine 15 units/ (Miscellaneous Medication) 0.15 mls @ 0 mls/hr [facility] Last Admin: 11/01/17 20:11 Dose: 0.15 mls Insulin Glargine 15 units/ (Miscellaneous Medication) 0.15 mls @ 0 mls/hr [facility] Last Admin: 11/02/17 09:40 Dose: 0.15 mls Vancomycin HCl 1 gm/ Device 200 mls @ 200 mls/hr IVPB 1800 MICHAELA Last Admin: 11/01/17 17:58 Dose: 200 mls Insulin Human Lispro (Humalog) 0 units SC .MODERATE SLIDING SC PRN PRN Reason: Moderate Correctional Scale Last Admin: 10/29/17 11:25 Dose: 2 unit Insulin Human Lispro (Humalog) 0 units SC .BEDTIME SLIDING SC PRN PRN Reason: Bedtime Correctional Scale Last Admin: 10/22/17 22:30 Dose: 3 unit Labetalol HCl (Normodyne) 20 mg SLOW IVP Q4H PRN PRN Reason: Systolic BP > 180 Last Admin: 10/18/17 06:33 Dose: 20 mg Lactulose (Lactulose) 20 gm PO DAILYPRN PRN PRN Reason: Constipation Lactulose (Lactulose) 30 gm PO DAILY [facility] Last Admin: 11/02/17 10:17 Dose: Not Given Levothyroxine Sodium (Synthroid) 175 mcg PO 0600 [facility] Last Admin: 11/02/17 06:08 Dose: 175 mcg Lisinopril (Zestril) 2.5 mg PO DAILY [facility] Last Admin: 11/01/17 09:13 Dose: 2.5 mg Loperamide HCl (Imodium) 2 mg PO PRN PRN PRN Reason: Diarrhea/Loose Stools Loratadine (Claritin) 10 mg PO DAILYPRN PRN PRN Reason: Sinus Symptoms Magnesium Hydroxide (Milk Of Magnesium) 30 ml PO DAILYPRN PRN PRN Reason: Constipation Last Admin: 10/20/17 10:40 Dose: 30 ml Mineral Oil/White Petrolatum (Eucerin Cream) 0 gm TOP BIDPRN PRN PRN Reason: Dry Skin Miscellaneous Medication (Pharmacy To Dose) 1 each IVPB PRN PRN PRN Reason: Pharmacy to dose Morphine Sulfate (Morphine) 4 mg SLOW IVP Q4H PRN PRN Reason: Pain Last Admin: 11/02/17 07:44 Dose: 4 mg Nitroglycerin (Nitrostat) 0.4 mg SL Q5MIN PRN PRN Reason: Chest Pain Ondansetron HCl (Zofran Odt) 4 mg PO Q6H PRN PRN Reason: Nausea/Vomiting Last Admin: 10/29/17 13:19 Dose: 4 mg Ondansetron HCl (Zofran) 4 mg IVP Q6H PRN PRN Reason: Nausea/Vomiting Pantoprazole Sodium (Protonix) 40 mg PO DAILY [facility] Last Admin: 11/02/17 09:38 Dose: 40 mg Phenol (Chloraseptic [place] 180 Ml Bot) 0 ml PO PRN PRN PRN Reason: Sore Throat Phenyleph/Shark Oil/[place] Butter (Preparation H) 1 supp NV QIDPRN PRN PRN Reason: Hemorrhoids Last Admin: 10/21/17 03:05 Dose: 1 supp Potassium Chloride (K-Dur) 20 meq PO QAM-WM [facility] Last Admin: 11/02/17 09:37 Dose: 20 meq Saccharomyces Boulardii (Florastor) 250 mg PO DAILY [facility] Last Admin: 11/02/17 09:37 Dose: 250 mg Senna (Senokot) 2 tab PO HSPRN PRN PRN Reason: Constipation Last Admin: 10/20/17 20:49 Dose: 2 tab Sodium Chloride ([place] Nasal [place] 0.65%) 0 ml EA NARE QIDPRN PRN PRN Reason: Nasal Congestion Sodium Chloride (Flush - Normal Saline) 10 ml IVF Q12HR [facility] Last Admin: 11/02/17 09:38 Dose: 10 ml Sodium Chloride (Flush - Normal Saline) 10 ml IVF PRN PRN PRN Reason: Saline Flush Thiamine HCl (Thiamine) 100 mg PO DAILY [facility] Last Admin: 11/02/17 09:38 Dose: 100 mg Trazodone HCl (Desyrel) 100 mg PO HS PRN PRN Reason: Insomnia Last Admin: 10/26/17 00:14 Dose: 100 mg
[2017-11-02] MEDS: Carvedilol 6.25 MG TAB PO SCH ×2 (11:17→17:49)
[2017-11-02] MEDS: Amiodarone 200 MG TAB PO SCH ×2 (11:18→21:18)
[2017-11-02] MEDS: Lisinopril 2.5 MG TAB PO SCH (11:18)
[2017-11-02] MEDS: Digoxin 0.125 MG TAB PO SCH (11:18)
[2017-11-02] MEDS: HumaLOG 300 UNITS/3 ML VIAL SC PRN ×2 (12:12→21:19)
--- NOTE | 2017-11-02 12:31 | PRG ---
DATE OF PROGRESS NOTE: 11/01/2017 John Cruz is doing well today. He has not had any further bleeding. I think at this point we can advance his diet. If he does not have any bleeding over the weekend he can be discharged home Sa or Saturday per medical condition. Dr. Sanchez is covering this weekend, please call him if rafaela briscoe. He will not see him unless called. Hemoglobin is 7.7 this morning, stable from yesterday.
[2017-11-02] MEDS: HYDROcodone/Acetaminophen 5/325 mg Tablet PO PRN ×2 (15:11→21:19)
[2017-11-02 18:15] LABS: Vancomycin, Trough 17.7 ug/mL
[2017-11-02] MEDS: Vancomycin HCl 1 GM in Premix Bag 1 BAG IVPB SCH (18:26)
[2017-11-02] MEDS: Atorvastatin Calcium 40 MG TAB PO SCH (21:18)
[2017-11-03] MEDS: HYDROcodone/Acetaminophen 5/325 mg Tablet PO PRN ×3 (04:14→20:25)
[2017-11-03 04:44] LABS: #Eosinphils 0.1 thou/uL (0.0-0.7); #Lymphocytes 1.1 thou/uL (1.20-3.40); #Monocytes 0.5 thou/uL (0.11-0.59); #Neutrophils 2.3 thou/uL (1.40-6.50); %Basophils 0.7 % (0.0-1.0); %Eosinophils 1.5 % (0.0-10.0); %Lymphocytes 26.7 % (21.0-51.0); %Monocytes 13.2 % (0.0-10.0); %Neutrophils 57.9 % (42.0-75.0); Mean Corpuscular HGB CONC 33.4 g/dL (32.0-36.0); Mean Corpuscular Hemoglobin 30.4 pg (27.0-31.0); Mean Corpuscular Volume 91.2 fL (78.0-98.0); Mean Platelet Volume 7.5 fL (7.4-10.4); Platelet Count 127 thou/uL (130-400); RBC Distribution Width 20.3 % (11.5-14.5); White Blood Cell (WBC) Count 3.9 thou/uL (4.8-10.8)
[2017-11-03 04:57] LABS: Anion Gap 7 mmol/L (10-20); BUN (Urea Nitrogen) 10 mg/dL (8.4-25.7); Calc. Creatinine Clearance 87 mL/min (70-130); Calcium 7.8 mg/dL (7.8-10.44); Carbon Dioxide 37 mmol/L (23-31); Chloride 94 mmol/L (98-107); Estimated GFR-MDRD 74; Glucose 169 mg/dL (83-110); Sodium 134 mmol/L (136-145)
[2017-11-03] MEDS: Levothyroxine 175 MCG TAB PO SCH (05:51)
[2017-11-03] MEDS: HumaLOG 300 UNITS/3 ML VIAL SC PRN ×4 (05:52→20:28)
[2017-11-03] MEDS: DULoxetine 30 MG CAP PO SCH (08:33)
[2017-11-03] MEDS: Saccharomyces boulardii 250 MG CAP PO SCH (08:33)
[2017-11-03] MEDS: Gabapentin 300 MG CAP PO SCH ×3 (08:34→20:26)
[2017-11-03] MEDS: Carvedilol 6.25 MG TAB PO SCH ×2 (08:34→17:13)
[2017-11-03] MEDS: Amiodarone 200 MG TAB PO SCH ×2 (08:34→20:25)
[2017-11-03] MEDS: Lisinopril 2.5 MG TAB PO SCH (08:34)
[2017-11-03] MEDS: Furosemide 20 MG TAB PO SCH (08:34)
[2017-11-03] MEDS: Ferrous Sulfate 325 MG TAB PO SCH (08:35)
[2017-11-03] MEDS: Potassium Chloride 20 MEQ TAB PO SCH (08:35)
[2017-11-03] MEDS: Digoxin 0.125 MG TAB PO SCH (08:39)
[2017-11-03] MEDS: Insulin Glargine 15 UNITS in Pre-Filled Syringe 1 EACH SC SCH ×2 (08:43→20:27)
[2017-11-03 09:18] LABS: Hemoglobin 7.1 g/dL (14.0-18.0)
[2017-11-03] MEDS: Budesonide 0.5 MG/2 ML NEB INH SCH ×2 (10:25→18:47)
--- NOTE | 2017-11-03 11:03 | PDOC.PN ---
- Subjective Encounter Start Date: 11/03/17 Encounter Start Time: 08:40 Patient seen and examined. No new complaints. No overnight events - Objective Resuscitation Status: Resuscitation Status DNR:Do Not Resuscitate MAR Reviewed: Yes Vital Signs & Weight: Vital Signs (12 hours) Temp Pulse Resp BP BP Pulse Ox 11/03/17 10:26 96 11/03/17 10:25 96 11/03/17 08:39 64 11/03/17 08:34 61 132/72 11/03/17 07:47 96 11/03/17 07:35 97.7 F 61 16 132/72 92 L 11/03/17 04:00 98.8 F 64 17 124/72 95 11/03/17 00:15 103/55 L 11/02/17 23:45 96 Weight Admit Weight 177 lb 0.499 oz Weight 201 lb 3.2 oz Most Recent Monitor Data Heart Rate from ECG 74 NIBP 110/67 NIBP BP-Mean 83 Respiration from ECG 17 SpO2 97 I&O: 11/02/17 11/03/17 11/04/17 06:59 06:59 06:59 Intake Total 740 480 Output Total 7000 6550 [id number] Result Diagrams: 11/03/17 09:06 11/03/17 04:04 Additional Labs: Accuchecks 11/03/17 11/02/17 11/02/17 04:31 19:34 15:17 POC Glucose 268 H 292 H 171 H 11/02/17 11:15 POC Glucose 240 H Phys Exam - Physical Examination Constitutional: NAD HEENT: PERRLA, moist MMs, sclera anicteric Neck: no JVD, supple Respiratory: no wheezing, no rales, no rhonchi Cardiovascular: RRR, no rub SM+ Gastrointestinal: soft, non-tender, no distention, positive bowel sounds Musculoskeletal: no edema, pulses present Neurological: non-focal, normal sensation, moves all 4 limbs Psychiatric: normal affect, A&O x 3 Skin: no rash, normal turgor Dx/Plan (1) Acute kidney failure Status: Resolved (2) Atrial fibrillation with rapid ventricular response Code(s): I48.91 - UNSPECIFIED ATRIAL FIBRILLATION Status: Acute Comment: controlled, now nsr, on oral amiodaron, not a candidate for chronic anticoagulation due to GI bleeding (3) Demand ischemia of myocardium Code(s): I24.8 - OTHER FORMS OF ACUTE ISCHEMIC HEART DISEASE Status: Acute (4) Hematuria, gross Status: Resolved Comment: s/p Vir[place]ontes by urology w dorsal slit (5) Hyponatremia Code(s): E87.1 - HYPO-OSMOLALITY AND HYPONATREMIA Status: Resolved (6) Lactic acidosis Code(s): E87.2 - ACIDOSIS Status: Resolved (7) Sepsis with acute organ dysfunction Code(s): A41.9 - SEPSIS, UNSPECIFIED ORGANISM; R65.20 - SEVERE SEPSIS WITHOUT SEPTIC SHOCK Status: Resolved (8) Splenic infarct Code(s): D73.5 - INFARCTION OF SPLEEN Status: Acute Comment: ? septic embolization (9) 3-vessel CAD Status: Chronic (10) Alcoholic cirrhosis of liver Code(s): K70.30 - ALCOHOLIC CIRRHOSIS OF LIVER WITHOUT ASCITES Status: Chronic Qualifiers: Ascites presence: without ascites Qualified Code(s): K70.30 - Alcoholic cirrhosis of liver without ascites (11) Anemia, macrocytic Code(s): D53.9 - NUTRITIONAL ANEMIA, UNSPECIFIED Status: Chronic (12) Anxiety and depression Code(s): F41.9 - ANXIETY DISORDER, UNSPECIFIED; F32.9 - MAJOR DEPRESSIVE DISORDER, SINGLE EPISODE, UNSPECIFIED Status: Chronic (13) COPD (chronic obstructive pulmonary disease) Status: Chronic (14) Chronic combined systolic and diastolic CHF (congestive heart failure) Code(s): I50.42 - CHRONIC COMBINED SYSTOLIC AND DIASTOLIC HRT FAIL Status: Chronic Comment: Compensated for now (15) DM type 2 (diabetes mellitus, type 2) Status: Chronic 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: 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: with chcf use Diabetes mellitus complication status: without complication Qualified Code(s): E11.9 - Type 2 diabetes mellitus without complications; Z79.4 - long term acute care registered nurse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; Z79.4 - long term acute care registered nurse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; Z79.4 - long term acute care registered nurse ( 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; Z79.4 - skilled nursing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 (16) Dyslipidemia Code(s): E78.5 - HYPERLIPIDEMIA, UNSPECIFIED Status: Chronic (17) GERD (gastroesophageal reflux disease) Code(s): K21.9 - GASTRO-ESOPHAGEAL REFLUX DISEASE WITHOUT ESOPHAGITIS Status: Chronic (18) HTN (hypertension) Code(s): I10 - ESSENTIAL (PRIMARY) HYPERTENSION Status: Chronic (19) Hypoalbuminemia due to protein-calorie malnutrition Code(s): E46 - UNSPECIFIED PROTEIN-CALORIE MALNUTRITION Status: Chronic (20) Hypothyroidism Code(s): E03.9 - HYPOTHYROIDISM, UNSPECIFIED Status: Chronic (21) PVD (peripheral vascular disease) Code(s): I73.9 - PERIPHERAL VASCULAR DISEASE, UNSPECIFIED Status: Chronic (22) Protein-calorie malnutrition, moderate Code(s): E44.0 - MODERATE PROTEIN-CALORIE MALNUTRITION Status: Chronic (23) Thrombocytopenia Code(s): D69.6 - THROMBOCYTOPENIA, UNSPECIFIED Status: Chronic (24) Tobacco abuse Code(s): Z72.0 - TOBACCO USE Status: Chronic (25) Aortic stenosis Code(s): I35.0 - NONRHEUMATIC AORTIC (VALVE) STENOSIS Status: Chronic Comment: severe (26) Bacteremia due to methicillin resistant Staphylococcus aureus Code(s): R78.81 - BACTEREMIA Status: Acute Comment: Suspect Infective endocarditis and /or Diskitis (27) Gangrene of toe of right foot Code(s): I96 - GANGRENE, NOT ELSEWHERE CLASSIFIED Status: Acute (28) Cavitary lesion of lung Code(s): J98.4 - OTHER DISORDERS OF LUNG Status: Chronic Comment: Op work up done [place] (29) UTI (urinary tract infection) Status: Acute (30) Hypokalemia Code(s): E87.6 - HYPOKALEMIA Status: Acute (31) Osteomyelitis of toe of right foot Code(s): M86.9 - OSTEOMYELITIS, UNSPECIFIED Status: Acute (32) Acute GI bleeding Code(s): K92.2 - GASTROINTESTINAL HEMORRHAGE, UNSPECIFIED Status: Acute (33) Anemia due to acute blood loss Code(s): D62 - ACUTE POSTHEMORRHAGIC ANEMIA Status: Acute (34) Hypomagnesemia Code(s): E83.42 - HYPOMAGNESEMIA Status: Acute (35) Hypotension Status: Acute (36) Discitis of cervical region Code(s): M46.42 - DISCITIS, UNSPECIFIED, CERVICAL REGION Status: Acute (37) Discitis of lumbosacral region Code(s): M46.47 - DISCITIS, UNSPECIFIED, LUMBOSACRAL REGION Status: Acute (38) Epidural abscess Code(s): G06.2 - EXTRADURAL AND SUBDURAL ABSCESS, UNSPECIFIED Status: Acute - Plan cont current plan of care, 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 Review of Systems - Review of Systems Eyes: negative: Pain, Vision Change, Conjunctivae Inflammation, Eyelid Inflammation, Redness, Other ENT: negative: Ear Pain, Ear Discharge, Nose Pain, Nose Discharge, Nose Congestion, Mouth Pain, Mouth Swelling, Throat Pain, Throat Swelling, Other Respiratory: negative: Cough, Dry, Shortness of Breath, Hemoptysis, SOB with Excertion, Pleuritic Pain, Sputum, Wheezing Cardiovascular: negative: chest pain, palpitations, orthopnea, paroxysmal nocturnal dyspnea, edema, light headedness, other Gastrointestinal: negative: Nausea, Vomiting, Abdominal Pain, Diarrhea, Constipation, Melena, Hematochezia, Other Genitourinary: negative: Dysuria, Frequency, Incontinence, Hematuria, Retention , Other Musculoskeletal: Neck Pain, Back Pain. negative: Shoulder Pain, Arm Pain, Hand Pain, Leg Pain, Foot Pain, Other Skin: negative: Rash, Lesions, Arnoldo, Bruising, Other - Medications/Allergies Allergies/Adverse Reactions: Allergies Allergy/AdvReac Type Severity Reaction Status Date / Time No Known Allergies Allergy Unverified 07/23/17 10:34 Medications: Current Medications Acetaminophen (Tylenol) 650 mg PO Q4H PRN PRN Reason: Headache/Fever or Pain Last Admin: 10/31/17 21:49 Dose: 650 mg Hydrocodone Bitart/Acetaminophen ([place] 5/325) 1 tab PO Q6H PRN PRN Reason: Moderate Pain (4-6) Last Admin: 10/30/17 03:17 Dose: 1 tab Hydrocodone Bitart/Acetaminophen ([place] 5/325) 2 tab PO Q6H PRN PRN Reason: Severe Pain (7-10) Last Admin: 11/03/17 10:53 Dose: 2 tab Al Hydroxide/Mg Hydroxide (Maalox) 30 ml PO Q6H PRN PRN Reason: Heartburn or Indigestion Albuterol/Ipratropium (Duoneb) 3 ml NEB [id number] MICHAELA Last Admin: 11/03/17 07:47 Dose: 3 ml Amiodarone HCl (Cordarone) 200 mg PO BID [facility] Last Admin: 11/03/17 08:34 Dose: 200 mg Artificial Tears (Tears Naturale) 0 drop EA EYE PRN PRN PRN Reason: Dry Eyes Atorvastatin Calcium (Lipitor) 40 mg PO HS [facility] Last Admin: 11/02/17 21:18 Dose: 40 mg Budesonide (Pulmicort Neb Solution) 0.5 mg INH BID-RT [facility] Last Admin: 11/03/17 10:25 Dose: 0.5 mg Carvedilol (Coreg) 6.25 mg PO BID-WM [facility] Last Admin: 11/03/17 08:34 Dose: 6.25 mg Dextrose/Water (Dextrose 50%) 25 gm SLOW IVP PRN PRN PRN Reason: Hypoglycemia Digoxin (Lanoxin) 0.125 mg PO QAM [facility] Last Admin: 11/03/17 08:39 Dose: 0.125 mg Duloxetine HCl (Cymbalta) 30 mg PO DAILY [facility] Last Admin: 11/03/17 08:33 Dose: 30 mg Ferrous Sulfate (Feosol) 325 mg PO DAILY [facility] Last Admin: 11/03/17 08:35 Dose: 325 mg Furosemide (Lasix) 20 mg PO DAILY [facility] Last Admin: 11/03/17 08:34 Dose: 20 mg Gabapentin (Neurontin) 300 mg PO TID [facility] Last Admin: 11/03/17 08:34 Dose: 300 mg Glucagon (Glucagon) 1 mg IM PRN PRN PRN Reason: Hypoglycemia Guaifenesin (Robitussin Sf) 200 mg PO Q4H PRN PRN Reason: Cough Hydralazine HCl (Apresoline) 10 mg SLOW IVP Q4H PRN PRN Reason: Systolic BP > 180 Last Admin: 10/24/17 05:37 Dose: 10 mg Dextrose/Water (D5w) 1,000 mls @ 0 mls/hr IV .Q0M PRN; As Directed PRN Reason: Hypoglycemia Insulin Glargine 15 units/ (Miscellaneous Medication) 0.15 mls @ 0 mls/hr SC [facility] Last Admin: 11/02/17 21:18 Dose: 0.15 mls Insulin Glargine 15 units/ (Miscellaneous Medication) 0.15 mls @ 0 mls/[facility] Last Admin: 11/03/17 08:43 Dose: 0.15 mls Vancomycin HCl 1 gm/ Device 200 mls @ 200 mls/hr IVPB 1800 [facility] Last Admin: 11/02/17 18:26 Dose: 200 mls Insulin Human Lispro (Humalog) 0 units SC .MODERATE SLIDING SC PRN PRN Reason: Moderate Correctional Scale Last Admin: 11/03/17 05:52 Dose: 6 unit Insulin Human Lispro (Humalog) 0 units SC .BEDTIME SLIDING SC PRN PRN Reason: Bedtime Correctional Scale Last Admin: 11/02/17 21:19 Dose: 3 unit Labetalol HCl (Normodyne) 20 mg SLOW IVP Q4H PRN PRN Reason: Systolic BP > 180 Last Admin: 10/18/17 06:33 Dose: 20 mg Lactulose (Lactulose) 20 gm PO DAILYPRN PRN PRN Reason: Constipation Lactulose (Lactulose) 30 gm PO DAILY [facility] Last Admin: 11/03/17 08:32 Dose: 30 gm Levothyroxine Sodium (Synthroid) 175 mcg PO 0600 [facility] Last Admin: 11/03/17 05:51 Dose: 175 mcg Lisinopril (Zestril) 2.5 mg PO DAILY [facility] Last Admin: 11/03/17 08:34 Dose: 2.5 mg Loperamide HCl (Imodium) 2 mg PO PRN PRN PRN Reason: Diarrhea/Loose Stools Loratadine (Claritin) 10 mg PO DAILYPRN PRN PRN Reason: Sinus Symptoms Magnesium Hydroxide (Milk Of Magnesium) 30 ml PO DAILYPRN PRN PRN Reason: Constipation Last Admin: 10/20/17 10:40 Dose: 30 ml Mineral Oil/White Petrolatum (Eucerin Cream) 0 gm TOP BIDPRN PRN PRN Reason: Dry Skin Miscellaneous Medication (Pharmacy To Dose) 1 each IVPB PRN PRN PRN Reason: Pharmacy to dose Morphine Sulfate (Morphine) 4 mg SLOW IVP Q4H PRN PRN Reason: Pain Last Admin: 11/03/17 07:14 Dose: 4 mg Nitroglycerin (Nitrostat) 0.4 mg SL Q5MIN PRN PRN Reason: Chest Pain Ondansetron HCl (Zofran Odt) 4 mg PO Q6H PRN PRN Reason: Nausea/Vomiting Last Admin: 10/29/17 13:19 Dose: 4 mg Ondansetron HCl (Zofran) 4 mg IVP Q6H PRN PRN Reason: Nausea/Vomiting Pantoprazole Sodium (Protonix) 40 mg PO DAILY [facility] Last Admin: 11/03/17 08:34 Dose: 40 mg Phenol (Chloraseptic [place] 180 Ml Bot) 0 ml PO PRN PRN PRN Reason: Sore Throat Phenyleph/Shark Oil/Truman Butter (Preparation H) 1 supp ND QIDPRN PRN PRN Reason: Hemorrhoids Last Admin: 10/21/17 03:05 Dose: 1 supp Potassium Chloride (K-Dur) 20 meq PO QAM-WM [facility] Last Admin: 11/03/17 08:35 Dose: 20 meq Saccharomyces Boulardii (Florastor) 250 mg PO DAILY [facility] Last Admin: 11/03/17 08:33 Dose: 250 mg Senna (Senokot) 2 tab PO HSPRN PRN PRN Reason: Constipation Last Admin: 10/20/17 20:49 Dose: 2 tab Sodium Chloride (Mcbride Nasal [place] 0.65%) 0 ml EA NARE QIDPRN PRN PRN Reason: Nasal Congestion Sodium Chloride (Flush - Normal Saline) 10 ml IVF Q12HR [facility] Last Admin: 11/03/17 08:47 Dose: 10 ml Sodium Chloride (Flush - Normal Saline) 10 ml IVF PRN PRN PRN Reason: Saline Flush Thiamine HCl (Thiamine) 100 mg PO DAILY [facility] Last Admin: 11/03/17 08:33 Dose: 100 mg Trazodone HCl (Desyrel) 100 mg PO HS PRN PRN Reason: Insomnia Last Admin: 10/26/17 00:14 Dose: 100 mg
[2017-11-03] MEDS: Vancomycin HCl 1 GM in Premix Bag 1 BAG IVPB SCH (17:48)
[2017-11-03] MEDS: Atorvastatin Calcium 40 MG TAB PO SCH (20:26)
[2017-11-04 04:50] LABS: #Eosinphils 0.1 thou/uL (0.0-0.7); #Lymphocytes 1.2 thou/uL (1.20-3.40); #Monocytes 0.6 thou/uL (0.11-0.59); #Neutrophils 3.4 thou/uL (1.40-6.50); %Basophils 0.6 % (0.0-1.0); %Eosinophils 1.7 % (0.0-10.0); %Lymphocytes 22.2 % (21.0-51.0); %Neutrophils 63.5 % (42.0-75.0); Hemoglobin 6.9 g/dL (14.0-18.0); Mean Corpuscular Hemoglobin 30.2 pg (27.0-31.0); Mean Corpuscular Volume 91.5 fL (78.0-98.0); Mean Platelet Volume 7.4 fL (7.4-10.4); Platelet Count 138 thou/uL (130-400); RBC Distribution Width 19.8 % (11.5-14.5); Red Blood Cell (RBC) Count 2.27 mill/uL (4.70-6.10); White Blood Cell (WBC) Count 5.3 thou/uL (4.8-10.8)
[2017-11-04 05:02] LABS: BUN (Urea Nitrogen) 18 mg/dL (8.4-25.7); Calc. Creatinine Clearance 71 mL/min (70-130); Calcium 7.9 mg/dL (7.8-10.44); Estimated GFR-MDRD 59; Glucose 148 mg/dL (83-110)
[2017-11-04 05:11] LABS: Anion Gap 13 mmol/L (10-20); Carbon Dioxide 33 mmol/L (23-31); Chloride 90 mmol/L (98-107); Potassium 3.9 mmol/L (3.5-5.1); Sodium 132 mmol/L (136-145)
[2017-11-04] MEDS: Levothyroxine 175 MCG TAB PO SCH (06:03)
[2017-11-04] MEDS: HumaLOG 300 UNITS/3 ML VIAL SC PRN ×4 (06:31→21:36)
[2017-11-04] MEDS: Budesonide 0.5 MG/2 ML NEB INH SCH ×2 (07:09→18:55)
[2017-11-04] MEDS: Potassium Chloride 20 MEQ TAB PO SCH (08:12)
[2017-11-04] MEDS: DULoxetine 30 MG CAP PO SCH (08:12)
[2017-11-04] MEDS: Lisinopril 2.5 MG TAB PO SCH (08:12)
[2017-11-04] MEDS: Saccharomyces boulardii 250 MG CAP PO SCH (08:13)
[2017-11-04] MEDS: Ferrous Sulfate 325 MG TAB PO SCH (08:13)
[2017-11-04] MEDS: Amiodarone 200 MG TAB PO SCH ×2 (08:13→21:32)
[2017-11-04] MEDS: Carvedilol 6.25 MG TAB PO SCH ×2 (08:13→17:24)
[2017-11-04] MEDS: Furosemide 20 MG TAB PO SCH (08:14)
[2017-11-04] MEDS: Gabapentin 300 MG CAP PO SCH ×3 (08:14→21:32)
[2017-11-04] MEDS: Digoxin 0.125 MG TAB PO SCH (08:17)
[2017-11-04] MEDS: Insulin Glargine 15 UNITS in Pre-Filled Syringe 1 EACH SC SCH ×2 (08:22→21:32)
[2017-11-04 08:56] LABS: Hemoglobin 7.7 g/dL (14.0-18.0)
[2017-11-04] MEDS: Milk Of Magnesia 30 ML UDCUP PO PRN (11:18)
--- NOTE | 2017-11-04 11:25 | PDOC.PN ---
- Subjective Encounter Start Date: 11/04/17 Encounter Start Time: 09:55 he does not have bm for 2 days, he denies any blood loss, initially his Hb was low but when repeated at that time it came back fine - Objective Resuscitation Status: Resuscitation Status DNR:Do Not Resuscitate MAR Reviewed: Yes Vital Signs & Weight: Vital Signs (12 hours) Temp Pulse Resp BP BP BP Pulse Ox 11/04/17 08:17 72 11/04/17 08:13 148/78 H 11/04/17 08:12 70 148/78 H 11/04/17 08:00 98.5 F 70 18 97 11/04/17 07:59 98.5 F 69 18 148/78 H 97 11/04/17 07:09 60 12 11/04/17 04:03 98.4 F 82 18 119/69 95 11/04/17 00:45 114/64 11/04/17 00:08 94 L 11/04/17 00:04 98.8 F 82 16 182/94 H 95 Weight Admit Weight 177 lb 0.499 oz Weight 201 lb 3.2 oz Most Recent Monitor Data Heart Rate from ECG 74 NIBP 110/67 NIBP BP-Mean 83 Respiration from ECG 17 SpO2 97 I&O: 11/03/17 11/04/17 11/05/17 06:59 06:59 06:59 Intake Total 480 3000 720 Output Total 6550 5650 Balance -3149 -8504 720 Result Diagrams: 11/04/17 08:49 11/04/17 04:08 Additional Labs: Accuchecks 11/04/17 11/03/17 11/03/17 05:33 19:33 16:52 POC Glucose 177 H 235 H 211 H 11/03/17 11:19 POC Glucose 156 H Phys Exam - Physical Examination Constitutional: NAD HEENT: PERRLA, moist MMs, sclera anicteric Neck: no JVD, supple Respiratory: no wheezing, no rales, no rhonchi Cardiovascular: RRR, no rub SM+ Gastrointestinal: soft, non-tender, no distention, positive bowel sounds Musculoskeletal: no edema, pulses present Neurological: non-focal, normal sensation Lymphatic: no nodes Psychiatric: normal affect Skin: no rash, normal turgor Dx/Plan (1) Acute kidney failure Status: Resolved (2) Atrial fibrillation with rapid ventricular response Code(s): I48.91 - UNSPECIFIED ATRIAL FIBRILLATION Status: Acute Comment: controlled, now nsr, on oral amiodaron, not a candidate for chronic anticoagulation due to GI bleeding (3) Demand ischemia of myocardium Code(s): I24.8 - OTHER FORMS OF ACUTE ISCHEMIC HEART DISEASE Status: Acute (4) Hematuria, gross Status: Resolved Comment: s/p Viramontes by urology w dorsal slit (5) Hyponatremia Code(s): E87.1 - HYPO-OSMOLALITY AND HYPONATREMIA Status: Resolved (6) Lactic acidosis Code(s): E87.2 - ACIDOSIS Status: Resolved (7) Sepsis with acute organ dysfunction Code(s): A41.9 - SEPSIS, UNSPECIFIED ORGANISM; R65.20 - SEVERE SEPSIS WITHOUT SEPTIC SHOCK Status: Resolved (8) Splenic infarct Code(s): D73.5 - INFARCTION OF SPLEEN Status: Acute Comment: ? septic embolization (9) 3-vessel CAD Status: Chronic (10) Alcoholic cirrhosis of liver Code(s): K70.30 - ALCOHOLIC CIRRHOSIS OF LIVER WITHOUT ASCITES Status: Chronic Qualifiers: Ascites presence: without ascites Qualified Code(s): K70.30 - Alcoholic cirrhosis of liver without ascites (11) Anemia, macrocytic Code(s): D53.9 - NUTRITIONAL ANEMIA, UNSPECIFIED Status: Chronic (12) Anxiety and depression Code(s): F41.9 - ANXIETY DISORDER, UNSPECIFIED; F32.9 - MAJOR DEPRESSIVE DISORDER, SINGLE EPISODE, UNSPECIFIED Status: Chronic (13) COPD (chronic obstructive pulmonary disease) Status: Chronic (14) Chronic combined systolic and diastolic CHF (congestive heart failure) Code(s): I50.42 - CHRONIC COMBINED SYSTOLIC AND DIASTOLIC HRT FAIL Status: Chronic Comment: Compensated for now (15) DM type 2 (diabetes mellitus, type 2) Status: Chronic Qualifiers: 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: with termite control technician use Diabetes mellitus complication status: without complication Qualified Code(s): E11.9 - Type 2 diabetes mellitus without complications; Z79.4 - terminal carman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; Z79.4 - terminal carman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; Z79.4 - terminal carman ( 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; Z79.4 - skilled nursing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 (16) Dyslipidemia Code(s): E78.5 - HYPERLIPIDEMIA, UNSPECIFIED Status: Chronic (17) GERD (gastroesophageal reflux disease) Code(s): K21.9 - GASTRO-ESOPHAGEAL REFLUX DISEASE WITHOUT ESOPHAGITIS Status: Chronic (18) HTN (hypertension) Code(s): I10 - ESSENTIAL (PRIMARY) HYPERTENSION Status: Chronic (19) Hypoalbuminemia due to protein-calorie malnutrition Code(s): E46 - UNSPECIFIED PROTEIN-CALORIE MALNUTRITION Status: Chronic (20) Hypothyroidism Code(s): E03.9 - HYPOTHYROIDISM, UNSPECIFIED Status: Chronic (21) PVD (peripheral vascular disease) Code(s): I73.9 - PERIPHERAL VASCULAR DISEASE, UNSPECIFIED Status: Chronic (22) Protein-calorie malnutrition, moderate Code(s): E44.0 - MODERATE PROTEIN-CALORIE MALNUTRITION Status: Chronic (23) Thrombocytopenia Code(s): D69.6 - THROMBOCYTOPENIA, UNSPECIFIED Status: Chronic (24) Tobacco abuse Code(s): Z72.0 - TOBACCO USE Status: Chronic (25) Aortic stenosis Code(s): I35.0 - NONRHEUMATIC AORTIC (VALVE) STENOSIS Status: Chronic Comment: severe (26) Bacteremia due to methicillin resistant Staphylococcus aureus Code(s): R78.81 - BACTEREMIA Status: Acute Comment: Suspect Infective endocarditis and /or Diskitis (27) Gangrene of toe of right foot Code(s): I96 - GANGRENE, NOT ELSEWHERE CLASSIFIED Status: Acute (28) Cavitary lesion of lung Code(s): J98.4 - OTHER DISORDERS OF LUNG Status: Chronic Comment: Op work up done at [place] (29) UTI (urinary tract infection) Status: Acute (30) Hypokalemia Code(s): E87.6 - HYPOKALEMIA Status: Acute (31) Osteomyelitis of toe of right foot Code(s): M86.9 - OSTEOMYELITIS, UNSPECIFIED Status: Acute (32) Acute GI bleeding Code(s): K92.2 - GASTROINTESTINAL HEMORRHAGE, UNSPECIFIED Status: Acute (33) Anemia due to acute blood loss Code(s): D62 - ACUTE POSTHEMORRHAGIC ANEMIA Status: Acute (34) Hypomagnesemia Code(s): E83.42 - HYPOMAGNESEMIA Status: Acute (35) Hypotension Status: Acute (36) Discitis of cervical region Code(s): M46.42 - DISCITIS, UNSPECIFIED, CERVICAL REGION Status: Acute (37) Discitis of lumbosacral region Code(s): M46.47 - DISCITIS, UNSPECIFIED, LUMBOSACRAL REGION Status: Acute (38) Epidural abscess Code(s): G06.2 - EXTRADURAL AND SUBDURAL ABSCESS, UNSPECIFIED Status: Acute - Plan cont current plan of care, continue antibiotics, PT/OT, 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 Review of Systems - Review of Systems Eyes: negative: Pain, Vision Change, Conjunctivae Inflammation, Eyelid Inflammation, Redness, Other ENT: negative: Ear Pain, Ear Discharge, Nose Pain, Nose Discharge, Nose Congestion, Mouth Pain, Mouth Swelling, Throat Pain, Throat Swelling, Other Respiratory: negative: Cough, Dry, Shortness of Breath, Hemoptysis, SOB with Excertion, Pleuritic Pain, Sputum, Wheezing Cardiovascular: negative: chest pain, palpitations, orthopnea, paroxysmal nocturnal dyspnea, edema, light headedness, other Gastrointestinal: negative: Nausea, Vomiting, Abdominal Pain, Diarrhea, Constipation, Melena, Hematochezia, Other Genitourinary: negative: Dysuria, Frequency, Incontinence, Hematuria, Retention , Other Musculoskeletal: Neck Pain, Back Pain. negative: Shoulder Pain, Arm Pain, Hand Pain, Leg Pain, Foot Pain, Other Skin: negative: Rash, Lesions, Arnoldo, Bruising, Other - Medications/Allergies Allergies/Adverse Reactions: Allergies Allergy/AdvReac Type Severity Reaction Status Date / Time No Known Allergies Allergy Unverified 07/23/17 10:34 Medications: Current Medications Acetaminophen (Tylenol) 650 mg PO Q4H PRN PRN Reason: Headache/Fever or Pain Last Admin: 10/31/17 21:49 Dose: 650 mg Hydrocodone Bitart/Acetaminophen ([place] 5/325) 1 tab PO Q6H PRN PRN Reason: Moderate Pain (4-6) Last Admin: 10/30/17 03:17 Dose: 1 tab Hydrocodone Bitart/Acetaminophen ([place] 5/325) 2 tab PO Q6H PRN PRN Reason: Severe Pain (7-10) Last Admin: 11/03/17 20:25 Dose: 2 tab Al Hydroxide/Mg Hydroxide (Maalox) 30 ml PO Q6H PRN PRN Reason: Heartburn or Indigestion Albuterol/Ipratropium (Duoneb) 3 ml NEB [id number] [facility] Last Admin: 11/04/17 07:09 Dose: 3 ml Amiodarone HCl (Cordarone) 200 mg PO BID [facility] Last Admin: 11/04/17 08:13 Dose: 200 mg Artificial Tears (Tears Naturale) 0 drop EA EYE PRN PRN PRN Reason: Dry Eyes Atorvastatin Calcium (Lipitor) 40 mg PO HS [facility] Last Admin: 11/03/17 20:26 Dose: 40 mg Budesonide (Pulmicort Neb Solution) 0.5 mg INH BID-RT [facility] Last Admin: 11/04/17 07:09 Dose: 0.5 mg Carvedilol (Coreg) 6.25 mg PO BID-WM [facility] Last Admin: 11/04/17 08:13 Dose: 6.25 mg Dextrose/Water (Dextrose 50%) 25 gm SLOW IVP PRN PRN PRN Reason: Hypoglycemia Digoxin (Lanoxin) 0.125 mg PO QAM [facility] Last Admin: 11/04/17 08:17 Dose: 0.125 mg Duloxetine HCl (Cymbalta) 30 mg PO DAILY [facility] Last Admin: 11/04/17 08:12 Dose: 30 mg Ferrous Sulfate (Feosol) 325 mg PO DAILY [facility] Last Admin: 11/04/17 08:13 Dose: 325 mg Furosemide (Lasix) 20 mg PO DAILY [facility] Last Admin: 11/04/17 08:14 Dose: 20 mg Gabapentin (Neurontin) 300 mg PO TID [facility] Last Admin: 11/04/17 08:14 Dose: 300 mg Glucagon (Glucagon) 1 mg IM PRN PRN PRN Reason: Hypoglycemia Guaifenesin (Robitussin Sf) 200 mg PO Q4H PRN PRN Reason: Cough Hydralazine HCl (Apresoline) 10 mg SLOW IVP Q4H PRN PRN Reason: Systolic BP > 180 Last Admin: 10/24/17 05:37 Dose: 10 mg Dextrose/Water (D5w) 1,000 mls @ 0 mls/hr IV .Q0M PRN; As Directed PRN Reason: Hypoglycemia Insulin Glargine 15 units/ (Miscellaneous Medication) 0.15 mls @ 0 mls/hr SC HS [facility] Last Admin: 11/03/17 20:27 Dose: 0.15 mls Insulin Glargine 15 units/ (Miscellaneous Medication) 0.15 mls @ 0 mls/hr SC QAM [facility] Last Admin: 11/04/17 08:22 Dose: 0.15 mls Vancomycin HCl 1 gm/ Device 200 mls @ 200 mls/hr IVPB 1800 [facility] Last Admin: 11/03/17 17:48 Dose: 200 mls Insulin Human Lispro (Humalog) 0 units SC .MODERATE SLIDING SC PRN PRN Reason: Moderate Correctional Scale Last Admin: 11/04/17 06:31 Dose: 2 unit Insulin Human Lispro (Humalog) 0 units SC .BEDTIME SLIDING SC PRN PRN Reason: Bedtime Correctional Scale Last Admin: 11/03/17 20:28 Dose: 2 unit Labetalol HCl (Normodyne) 20 mg SLOW IVP Q4H PRN PRN Reason: Systolic BP > 180 Last Admin: 10/18/17 06:33 Dose: 20 mg Lactulose (Lactulose) 20 gm PO DAILYPRN PRN PRN Reason: Constipation Lactulose (Lactulose) 30 gm PO DAILY [facility] Last Admin: 11/04/17 08:11 Dose: 30 gm Levothyroxine Sodium (Synthroid) 175 mcg PO 0600 [facility] Last Admin: 11/04/17 06:03 Dose: 175 mcg Lisinopril (Zestril) 2.5 mg PO DAILY [facility] Last Admin: 11/04/17 08:12 Dose: 2.5 mg Loperamide HCl (Imodium) 2 mg PO PRN PRN PRN Reason: Diarrhea/Loose Stools Loratadine (Claritin) 10 mg PO DAILYPRN PRN PRN Reason: Sinus Symptoms Magnesium Hydroxide (Milk Of Magnesium) 30 ml PO DAILYPRN PRN PRN Reason: Constipation Last Admin: 10/20/17 10:40 Dose: 30 ml Mineral Oil/White Petrolatum (Eucerin Cream) 0 gm TOP BIDPRN PRN PRN Reason: Dry Skin Miscellaneous Medication (Pharmacy To Dose) 1 each IVPB PRN PRN PRN Reason: Pharmacy to dose Morphine Sulfate (Morphine) 4 mg SLOW IVP Q4H PRN PRN Reason: Pain Last Admin: 11/04/17 08:28 Dose: 4 mg Nitroglycerin (Nitrostat) 0.4 mg SL Q5MIN PRN PRN Reason: Chest Pain Ondansetron HCl (Zofran Odt) 4 mg PO Q6H PRN PRN Reason: Nausea/Vomiting Last Admin: 10/29/17 13:19 Dose: 4 mg Ondansetron HCl (Zofran) 4 mg IVP Q6H PRN PRN Reason: Nausea/Vomiting Pantoprazole Sodium (Protonix) 40 mg PO DAILY [facility] Last Admin: 11/04/17 08:13 Dose: 40 mg Phenol (Chloraseptic [place] 180 Ml Bot) 0 ml PO PRN PRN PRN Reason: Sore Throat Phenyleph/Shark Oil/[place] Butter (Preparation H) 1 supp TN QIDPRN PRN PRN Reason: Hemorrhoids Last Admin: 10/21/17 03:05 Dose: 1 supp Potassium Chloride (K-Dur) 20 meq PO QA-[facility] Last Admin: 11/04/17 08:12 Dose: 20 meq Saccharomyces Boulardii (Florastor) 250 mg PO DAILY [facility] Last Admin: 11/04/17 08:13 Dose: 250 mg Senna (Senokot) 2 tab PO HSPRN PRN PRN Reason: Constipation Last Admin: 10/20/17 20:49 Dose: 2 tab Sodium Chloride ([place] Nasal [place] 0.65%) 0 ml EA NARE QIDPRN PRN PRN Reason: Nasal Congestion Sodium Chloride (Flush - Normal Saline) 10 ml IVF Q12HR [facility] Last Admin: 11/04/17 08:21 Dose: 10 ml Sodium Chloride (Flush - Normal Saline) 10 ml IVF PRN PRN PRN Reason: Saline Flush Thiamine HCl (Thiamine) 100 mg PO DAILY [facility] Last Admin: 11/04/17 08:12 Dose: 100 mg Trazodone HCl (Desyrel) 100 mg PO HS PRN PRN Reason: Insomnia Last Admin: 10/26/17 00:14 Dose: 100 mg
[2017-11-04] MEDS: HYDROcodone/Acetaminophen 5/325 mg Tablet PO PRN (15:21)
[2017-11-04 18:05] LABS: Vancomycin, Trough 17.2 ug/mL
--- NOTE | 2017-11-04 18:08 | PRG ---
DATE OF SERVICE: 11/04/2017 SUBJECTIVE: Mr. Cruz still with neck pain which according to his own account is about the same as it was when he came in with some low back pain too, but less. No headaches, no visual symptoms, sore throat, odynophagia, dysphagia, no dyspnea or chest pain, no abdominal pain. OBJECTIVE: VITAL SIGNS: His vital signs have been within normal limits. GENERAL: He is awake, alert, oriented. NECK: With better range of motion. CARDIOVASCULAR: S1, S2, regular rate. ABDOMEN: Soft. LUNGS: Clear. GENITOURINARY: No bladder with urinary retention. Of course, he has an indwelling Viramontes catheter. EXTREMITIES: He is able to move extremities on command. He is able to lift his knees from bed, bot h right and left with similar strength. NEUROLOGIC: Cognitive function appears to be intact. LABORATORY DATA: White cell count 5.3, hemoglobin 6.9, platelets 138, and creatinine around 1.21, wh ich is a bit higher than his prior. He is currently receiving vancomycin adjusted for renal function. His last vancomycin trough level 1 7.7, which is felt to be adequate. ASSESSMENT AND DISCUSSION: Cirrhosis secondary to alcoholism, coronary disease and methicillin-resis tant Staphylococcus aureus bacteremia with lung infection as well as splenic lesions and a C-spine an d lumbosacral spine infection with epidural abscess/phlegmon, diskitis and osteomyelitis. The patien t to continue IV vancomycin, adjust for renal function. The end date of therapy is calculated around 12/11/2016. PICC line placement and then disposition.
[2017-11-04] MEDS: Vancomycin HCl 1 GM in Premix Bag 1 BAG IVPB SCH (18:35)
[2017-11-04] MEDS ORDERED: Fleet Enema 133 ML BOT FS PRN (20:09)
[2017-11-04] MEDS ORDERED: Bisacodyl 10 MG SUPP PR PRN (20:10)
[2017-11-04] MEDS ORDERED: Heparin 1,000 UNITS/ML VIAL ONE (21:12)
[2017-11-04] MEDS: Atorvastatin Calcium 40 MG TAB PO SCH (21:32)
[2017-11-05] MEDS: Levothyroxine 175 MCG TAB PO SCH (05:32)
[2017-11-05] MEDS: HYDROcodone/Acetaminophen 5/325 mg Tablet PO PRN ×2 (05:35→12:55)
[2017-11-05] MEDS: HumaLOG 300 UNITS/3 ML VIAL SC PRN ×2 (07:22→12:57)
[2017-11-05] MEDS: Budesonide 0.5 MG/2 ML NEB INH SCH (07:59)
[2017-11-05 09:26] LABS: Hemoglobin 7.1 g/dL (14.0-18.0)
[2017-11-05] MEDS: Digoxin 0.125 MG TAB PO SCH (09:45)
[2017-11-05] MEDS: Lisinopril 2.5 MG TAB PO SCH (09:45)
[2017-11-05] MEDS: Ferrous Sulfate 325 MG TAB PO SCH (09:45)
[2017-11-05] MEDS: Saccharomyces boulardii 250 MG CAP PO SCH (09:45)
[2017-11-05] MEDS: DULoxetine 30 MG CAP PO SCH (09:45)
[2017-11-05] MEDS: Furosemide 20 MG TAB PO SCH (09:46)
[2017-11-05] MEDS: Amiodarone 200 MG TAB PO SCH (09:46)
[2017-11-05] MEDS: Potassium Chloride 20 MEQ TAB PO SCH (09:46)
[2017-11-05] MEDS: Gabapentin 300 MG CAP PO SCH ×2 (09:46→14:44)
[2017-11-05] MEDS: Insulin Glargine 15 UNITS in Pre-Filled Syringe 1 EACH SC SCH (09:46)
[2017-11-05] MEDS: Carvedilol 6.25 MG TAB PO SCH (09:46)
--- NOTE | 2017-11-05 11:06 | SPC ---
PICC PLACEMENT WITH SONOGRAPHIC AND FLUOROSCOPIC GUIDANCE: DATE: 11/04/17. HISTORY: A 72-year-old male with a history of endocarditis in need of IV antibiotics. FINDINGS: Informed consent was obtained prior to the procedure. Left antecubital fossa is prepped and draped i n normal sterile fashion. The skin overlying the left basilic vein is anesthetized with 1% buffered Lidocaine. With direct sonographic guidance, vascular access is obtained via the left basilic vein, and an 0.018 wire is advanced to the IVC, subsequently retracted to the cavoatrial junction. Intravascular lengt h is calculated at 45 cm and the PICC was cut accordingly. The needle was removed and replaced with a peelaway sheath. The PICC was advanced over the wire. The wire and peelaway sheath are removed. The tip of catheter overlies the cavoatrial junction. The catheter flushes well and is ready for use . EXPOSURE DATA: 0.2 minutes of fluoroscopic time, 857 mGy*^cm2. IMPRESSION: Successful left upper extremity PICC placement with sonographic and fluoroscopic guidance. POS: [facility]
--- NOTE | 2017-11-05 12:05 | DIS ---
DATE OF ADMISSION: 10/14/2017 DATE OF DISCHARGE: 11/05/2017 PRIMARY CARE PHYSICIAN: UT Maida. DISCHARGE DISPOSITION: [place] [facility]. PRIMARY DISCHARGE DIAGNOSES: Sepsis with acute organ dysfunction; lactic acidosis; abnormal electrol ytes (hyponatremia, hypokalemia, hypomagnesemia); gross hematuria on admission, resolved; acute kidne y failure, improved; atrial fibrillation with rapid ventricular response converted to normal sinus rh ythm; bacteremia due to methicillin-resistant Staphylococcus aureus; acute lower gastrointestinal ble ed from diverticulosis; anemia due to acute blood loss; demand ischemia of myocardium; diskitis and o steomyelitis of cervical and lumbosacral region; epidural abscess; gangrene of the toe of the right f oot; osteomyelitis of the toe of the right foot; splenic infarct; pulmonary infarct; and urinary trac t infection. SECONDARY DISCHARGE DIAGNOSES: Three-vessel coronary artery disease; severe aortic stenosis; cirrhos is of liver with portal hypertension; macrocytic anemia; anxiety and depression; chronic combined sys tolic and diastolic heart failure; chronic obstructive pulmonary disease; diabetes type 2; dyslipidem ia; gastroesophageal reflux disease; hypertension; protein-calorie malnutrition; hypothyroidism; mode rate protein-calorie malnutrition; peripheral vascular disease; chronic thrombocytopenia; tobacco abu se disorder. PRIMARY PROCEDURE/OPERATION: Central line placement, colonoscopy by Dr. Peñaloza. PICC line placem ent. RADIOLOGICAL INVESTIGATION: Abdomen and pelvis CT scan showed splenic infarct. Chest x-ray showed p ulmonary lesion. Foot x-ray showed suspicious finding of osteomyelitis of the toe. Echocardiography showed EF 50% -55%, severe aortic stenosis. GI bleed scan showed active bleeding from the sigmoid c olon. Lumbar spine MRI and cervical spine MRI showed diskitis and osteomyelitis of spine as well as epidural abscess. SIGNIFICANT LABORATORY DATA: On discharge, WBC 5.3, hemoglobin 7.1, platelet 138. Sodium 132, potas sium 3.9, BUN 18, creatinine 1.21, calcium 7.9. Urinalysis suggestive of UTI. His urine drug screen negative. His repeat blood culture is negative. His repeat urine culture is negative. Previous cu lture was positive for MRSA. DISCHARGE MEDICATIONS: Tylenol 650 mg p.o. q.6 hourly p.r.n., amiodarone 200 mg p.o. daily, Pulmicor t nebulization b.i.d., Coreg 6.25 mg p.o. b.i.d., Catapres 0.1 mg q.4 hourly p.r.n., digoxin 0.125 mg p.o. daily, Cymbalta 30 mg p.o. daily, vitamin D2 50,000 units every week, ferrous sulfate 325 mg p. o. daily, Lasix 40 mg p.o. daily, Neurontin 300 mg p.o. t.i.d., Lantus 15 units subcutaneously b.i.d. , DuoNeb q.6 hourly, probiotic 1 capsule daily, Synthroid 175 mcg p.o. daily, lisinopril 2.5 mg p.o. daily, magnesium oxide 400 mg p.o. daily, metformin 250 mg p.o. daily, Protonix 40 mg p.o. daily, thi amine 100 mg p.o. daily, Spiriva one inhalation daily, tramadol 100 mg q.8 hourly p.r.n., trazodone 1 00 mg p.o. at bedtime p.r.n., vancomycin 1 gram IV daily based on vancomycin trough level dose will b e adjusted and the patient will continue vancomycin until 12/11/2017. The patient will need weekly C BC, CMP, CRP. CONTRAINDICATIONS: None. CODE STATUS: DNR. INPATIENT CONSULTANTS: Pulmonary group was managing because the patient was critical in IMCU. Dr. Markos ludwig was consulted for MRSA bacteremia. Neurosurgeon was consulted for diskitis, osteomyelitis and e pidural abscess. Dr. Monte was consulted for recurrent GI bleed as well as osteomyelitis of toe. Reuben Patton and Dr. Peñaloza, GI group was following for his GI bleed. Cardiology group was following for atrial fibrillation. TEST RESULTS PENDING ON DISCHARGE: None. ALLERGIES: No known drug allergy. DISCHARGE PLAN: Post hospital, the patient is discharged to [facility] for IV antibiotic therapy. Subsequently, he will follow up with above-mentioned internal control consultant. HOSPITAL COURSE: A 72-year-old male who had a very complicated hospital course. He was admitted on 10/14/2017 by me. Please see my HPI for further detail. He was meeting sepsis criteria on admission . He had acute organ dysfunction with acute kidney failure. He had splenic infarct on CT abdomen. He had bandemia, tachycardia, fever, tachypnea. He also had gross hematuria. He was given initially cefepime, Levaquin, vancomycin and subsequently his culture came back positive for MRSA. On day 1, we consulted Dr. Wilder. He was admitted in IMCU. He also had acute kidney failure that was improved with IV fluid. He had abnormal electrolytes that was corrected and replaced while in hospital. He was acidotic because of lactic acidosis from sepsis. He had demand ischemia of myocardium due to sep sis and he was having protein calorie malnutrition. He does have previous history of chronic systoli c and diastolic heart failure, but he remained euvolemic. While in hospital, he required several blo od transfusions and several times IV fluid without any fluid overload status. He had thrombocytopeni a that appears to be improved. He remained hypotensive, required several bolus and blood product. He required [employer] for his pain control from his back and neck pain. While in hospital, his course was complicated with atrial fibrillation with rapid ventricular respons e, required amiodarone drip and subsequently, he was converted to sinus rhythm. He was not a padmaja te for chronic anticoagulation because of GI bleeding and ongoing blood loss and that is why chronic anticoagulation is contraindicated on this particular patient. He is maintaining sinus rhythm with a miodarone now. He was several days on sinus rhythm on telemetry floor after IMCU transfer to telemet ry floor and he remained in sinus rhythm for several days and then we transferred him to [facility]. Echocardiography showed improvement in EF, but he does have severe aortic stenosis. We consulted Dr. Tru Rose for evaluation of coronary artery disease as well as aortic stenosis, but this pat ient was not deemed a candidate for any kind of surgery. Similarly, we consulted Dr. Monte for his great toe osteomyelitis and gangrene, and he was not thinking that this patient will survive any kind of surgery and that is why he was treated conservatively. Even after he had significant amount of b leeding and required almost 9 units of blood transfusion while in hospital, he was not a good padmaja te for colon resection for his diverticular bleed. He underwent colonoscopy after colonoscopy preparation and found with diverticular bleed. He had a G I bleed scan which also showed active bleeding. He was hypotensive and required total 9 units of blo od transfusion while in hospital. He had gross hematuria and that is why Dr. Johnson evaluated and he placed Viramontes catheter. His gross h ematuria resolved. His urine culture remained negative. We were suspecting endocarditis because of splenic infarct, pulmonary nodule and cavitary lesion as w ell as MRSA bacteremia, and he was having severe neck pain and below back pain and that is why we wer e also concerned about spine involvement. For several days, we were not able to do MRI because he wa s having extreme pain that was controlled with the [employer], but ultimately, we were able to do MRI cervic al and lumbar spine and that showed diskitis, osteomyelitis as well as epidural abscess. At that poi nt, we consulted neurosurgeon and they also recommended conservative approach on him. At this point, Dr. Wilder recommended that he will continue IV antibiotic therapy until 12/11/2017. After that he w ill need repeat imaging to see any improvement. This patient is very complicated and is always risk for recurrent admission. He may intermittently require blood transfusion. At this point, all consul tants cleared him for discharge and there is nothing active going on in the hospital at this point as well, but still concern of recurrent admission for this particular patient. Patient has approval for [facility]. The patient is seen and examined at bedside today. Paper work for discharge done. Discharge medication reconciliation done. PHYSICAL EXAMINATION: VITAL SIGNS: Today, temperature 98.6, pulse 72, respiratory rate 12, saturation 96%, blood pressure 96/58, weight 201 pounds. GENERAL: The patient is currently alert, awake, no obvious acute distress. HEAD: Normocephalic, atraumatic. EYES: Pupils round, reactive to light. Extraocular muscle intact. ENT: Oropharynx within normal limits. Moist mucous membranes. NECK: Supple. No JVD. LUNGS: Lungs clear to auscultation without any rhonchi. CARDIAC: S1, S2 regular. Systolic murmur present at aortic area. No gallop, no rub. ABDOMEN: Soft and benign without any tenderness. EXTREMITIES: No edema. NEUROLOGIC: Nonfocal examination. Total time spent on discharge day more than 30 minutes.
[2017-11-05 15:28] VITALS: BP 104/56; TEMP 98.8
== END 2017-11-05 15:10 | disposition swing bed (61) | DRG 871 ==
LOC: ERS 13:31 → CCU 15:27 → ERS 19:43 → UNDODISIN 10-15 15:53 → 2NO 10-16 17:14 → IMCU/EMU 10-18 17:33 → 2NO 10-25 18:49 → T4-B 11-01 12:26
PROVIDERS: ADMIT Internal Medicine; ATTEND Internal Medicine
PROC: 02HV33Z Insertion of Infusion Device into Superior Vena Cava, Percutaneous Approach (ICD-10-PCS; 2017-10-14)
PROC: 30233N1 Transfusion of Nonautologous Red Blood Cells into Peripheral Vein, Percutaneous Approach (ICD-10-PCS; 2017-10-21)
PROC: 0DJD8ZZ Inspection of Lower Intestinal Tract, Via Natural or Artificial Opening Endoscopic (ICD-10-PCS; principal; 2017-10-25)
PROC: 02HV33Z Insertion of Infusion Device into Superior Vena Cava, Percutaneous Approach (ICD-10-PCS; 2017-11-05)
DX: A41.02 Sepsis due to Methicillin resistant Staphylococcus aureus (principal); K57.31 Diverticulosis of large intestine without perforation or abscess with bleeding; I26.99 Other pulmonary embolism without acute cor pulmonale; G06.2 Extradural and subdural abscess, unspecified; I50.42 Chronic combined systolic (congestive) and diastolic (congestive) heart failure; N17.9 Acute kidney failure, unspecified; E87.1 Hypo-osmolality and hyponatremia; E87.2 Acidosis; I24.8 Other forms of acute ischemic heart disease; D62 Acute posthemorrhagic anemia; M46.22 Osteomyelitis of vertebra, cervical region; M46.27 Osteomyelitis of vertebra, lumbosacral region; M86.9 Osteomyelitis, unspecified; K76.6 Portal hypertension; E44.0 Moderate protein-calorie malnutrition; N41.0 Acute prostatitis; E11.52 Type 2 diabetes mellitus with diabetic peripheral angiopathy with gangrene; I96 Gangrene, not elsewhere classified; N39.0 Urinary tract infection, site not specified; F17.210 Nicotine dependence, cigarettes, uncomplicated; I25.10 Atherosclerotic heart disease of native coronary artery without angina pectoris; I11.0 Hypertensive heart disease with heart failure; E11.51 Type 2 diabetes mellitus with diabetic peripheral angiopathy without gangrene; E78.5 Hyperlipidemia, unspecified; K21.9 Gastro-esophageal reflux disease without esophagitis; J44.9 Chronic obstructive pulmonary disease, unspecified; I35.0 Nonrheumatic aortic (valve) stenosis; E03.9 Hypothyroidism, unspecified; F41.9 Anxiety disorder, unspecified; F32.9 Major depressive disorder, single episode, unspecified; R65.20 Severe sepsis without septic shock; D69.59 Other secondary thrombocytopenia; K70.30 Alcoholic cirrhosis of liver without ascites; M46.42 Discitis, unspecified, cervical region; M46.47 Discitis, unspecified, lumbosacral region; I48.0 Paroxysmal atrial fibrillation; E87.6 Hypokalemia; E83.42 Hypomagnesemia; R31.0 Gross hematuria; E11.69 Type 2 diabetes mellitus with other specified complication; D73.5 Infarction of spleen; Z68.27 Body mass index [BMI] 27.0-27.9, adult; R33.9 Retention of urine, unspecified; F10.20 Alcohol dependence, uncomplicated; I25.2 Old myocardial infarction; Z79.4 Long term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; Z79.899 Other long term (current) drug therapy; Z89.432 Acquired absence of left foot; Z89.421 Acquired absence of other right toe(s)
CPT/HCPCS: 36415; 36416; 36430; 36556; 36569; 71045; 72156; 72158; 74177; 78278; 80048; 80053; 80076; 80202; 80306; 81001; 81015; 82553; 83605; 83735; 84100; 84132; 84443; 84484; 85014; 85018; 85025; 85652; 86140; 86850; 86900; 86901; 87040; 87086; 90471; 90670; 93005; 93306; 94640; 94760; 96361; 96365; 96368; 96375; 96376; A4216; A9604; C1751; C9113; G0009; G8978-GP-CL; G8978-GP-CN; G8979-GP-CI; G8979-GP-CJ; G8979-GP-CL; G8987-GO-CL; G8987-GO-CM; G8988-GO-CJ; G8988-GO-CK; J0282; J0360; J0692; J0696; J1160; J1580; J1644; J1956; J2060; J2270; J2543; J2997; J3370; J3475; J3480; J7050; J7070; J7620; J7626; L0639; P9016; Q0162

== ENCOUNTER 2017-12-15 18:56 | Emergency (ER) | payer MEDICARE ==
[~2017-12-15 18:56] MED LIST changes: +Gadobenate Dimeglumine 529 MG/1 ML (20ML VIAL) ONE; -ISOVUE-370 76%-LOCM 1 ML ONE
[2017-12-15 20:28] LABS: #Basophils 0.1 thou/uL (0.0-0.2); #Eosinphils 0.2 thou/uL (0.0-0.7); #Lymphocytes 1.8 thou/uL (1.20-3.40); #Monocytes 0.6 thou/uL (0.11-0.59); #Neutrophils 3.6 thou/uL (1.40-6.50); %Eosinophils 3.6 % (0.0-10.0); %Lymphocytes 27.9 % (21.0-51.0); %Monocytes 9.6 % (0.0-10.0); %Neutrophils 57.9 % (42.0-75.0); Hemoglobin 9.8 g/dL (14.0-18.0); Mean Corpuscular HGB CONC 33.8 g/dL (32.0-36.0); Mean Corpuscular Hemoglobin 32.1 pg (27.0-31.0); Mean Corpuscular Volume 94.8 fL (78.0-98.0); Mean Platelet Volume 6.9 fL (7.4-10.4); Platelet Count 228 thou/uL (130-400); RBC Distribution Width 19.1 % (11.5-14.5); Red Blood Cell (RBC) Count 3.07 mill/uL (4.70-6.10); White Blood Cell (WBC) Count 6.3 thou/uL (4.8-10.8)
[2017-12-15] MEDS ORDERED: Lorazepam 2 MG/ML VIAL ONE ×2 (20:51→21:23)
[2017-12-15 20:54] LABS: ALT (SGPT) 19 U/L (8-55); AST (SGOT) 18 U/L (5-34); Albumin 3.6 g/dL (3.4-4.8); Alkaline Phosphatase 100 U/L (40-150); Anion Gap 15 mmol/L (10-20); BUN (Urea Nitrogen) 18 mg/dL (8.4-25.7); Bilirubin, Total 0.2 mg/dL (0.2-1.2); Calc. Creatinine Clearance 0 mL/min (70-130); Calcium 9.1 mg/dL (7.8-10.44); Carbon Dioxide 20 mmol/L (23-31); Chloride 105 mmol/L (98-107); Estimated GFR-MDRD 59; Globulin 5.1 g/dL (2.4-3.5); Glucose 138 mg/dL (83-110); Potassium 3.6 mmol/L (3.5-5.1); Protein, Total 8.7 g/dL (5.8-8.1); Sodium 136 mmol/L (136-145)
[2017-12-15 20:55] LABS: Bilirubin Negative (Negative); Blood, Urine Moderate (Negative); Clarity CLEAR (Clear); Glucose, Urine (Dipstick) Negative (Negative); Leukocyte Moderate (Negative); Nitrite Negative (Negative); Protein, Urine (Dipstick) Negative (Neg-Trace); Specific Gravity, Urine 1.007 (1.002-1.036); Urobilinogen 0.2 mg/dL (0.2-1.0); pH, Urine 5.5 (5.0-9.0)
[2017-12-15 20:56] LABS: Pathc Cast-AUWi Flag 1.45 (0-2.49)
[2017-12-15 21:04] LABS: Yeast-AUWi Flag 56.8 (0-25.0)
[2017-12-15 21:05] LABS: Bacteria/HPF Rare-Few HPF (None Seen); Squamous Epithelial 0-3 HPF (0-3)
[2017-12-15 21:06] LABS: Yeast-All Forms 3+ HPF (None Seen)
[2017-12-15 21:07] LABS: Hyaline Casts/LPF 0-3 HYALINE CAST LPF (0-3 Hyaline)
--- NOTE | 2017-12-16 11:39 | MRI ---
LIMITED MRI LUMBAR SPINE WITHOUT CONTRAST: Date: 12/15/17 HISTORY: Osteomyelitis/diskitis. COMPARISON: MRI lumbar spine dated 12/10/17. FINDINGS: The examination was ordered as a with and without contrast exam, although the patient left and did no t complete the examination. The exam is limited without intravenous contrast. There continues to be dilatation of the distal abdominal aorta, measuring up to 2.8 cm. There is narr owing of the L5-S1 disc space with inflammatory changes. The prevertebral and anterior epidural space has abnormal edema and phlegmonous changes. This is similar to the comparison examination to slightl y worsening. There is edema of the bilateral exiting S1 nerve roots. IMPRESSION: Slightly worsening anterior prevertebral soft tissue phlegmonous changes. Examination is limited with out intravenous contrast or axials. There is also bilateral facet joint effusions that may be infecti ous in nature. Close follow up MRI recommended. POS: [facility]
== END 2017-12-15 23:08 | disposition home or self-care (01) ==
LOC: ERS 18:56
DX: M54.5 Low back pain (principal); R33.9 Retention of urine, unspecified; J44.9 Chronic obstructive pulmonary disease, unspecified; E11.9 Type 2 diabetes mellitus without complications; Z79.4 Long term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; I50.9 Heart failure, unspecified; F41.9 Anxiety disorder, unspecified; F17.210 Nicotine dependence, cigarettes, uncomplicated
CPT/HCPCS: 36415; 72148; 72158; 80053; 81003; 81015; 83605; 85025; 87040; 87086; 96361; 96374; 96375; A9579; J2060; J2270

== ENCOUNTER 2018-01-01 16:11 | Inpatient (IN) | payer MEDICARE ==
[~2018-01-01 16:11] MED LIST changes: -Gadobenate Dimeglumine 529 MG/1 ML (20ML VIAL) ONE; +ISOVUE-370 76%-LOCM 1 ML ONE
[2018-01-01] MEDS ORDERED: Heparin 1,000 UNITS/ML VIAL ONE (16:39)
[2018-01-01 16:55] LABS: #Eosinphils 0.1 thou/uL (0.0-0.7); #Lymphocytes 1.1 thou/uL (1.20-3.40); #Monocytes 0.6 thou/uL (0.11-0.59); #Neutrophils 3.9 thou/uL (1.40-6.50); %Basophils 0.3 % (0.0-1.0); %Lymphocytes 18.7 % (21.0-51.0); Hemoglobin 9.2 g/dL (14.0-18.0); Mean Corpuscular HGB CONC 34.6 g/dL (32.0-36.0); Mean Corpuscular Hemoglobin 31.9 pg (27.0-31.0); Mean Corpuscular Volume 92.2 fL (78.0-98.0); Mean Platelet Volume 6.9 fL (7.4-10.4); Platelet Count 292 thou/uL (130-400); RBC Distribution Width 17.8 % (11.5-14.5); Red Blood Cell (RBC) Count 2.88 mill/uL (4.70-6.10); White Blood Cell (WBC) Count 5.6 thou/uL (4.8-10.8)
[2018-01-01 16:56] LABS: Bilirubin Negative (Negative); Blood, Urine Large (Negative); Clarity CLEAR (Clear); Glucose, Urine (Dipstick) 100 mg/dL (Negative); Leukocyte Negative (Negative); Nitrite Negative (Negative); Protein, Urine (Dipstick) 100 mg/dL (Neg-Trace); Specific Gravity, Urine 1.017 (1.002-1.036); Urobilinogen 0.2 mg/dL (0.2-1.0)
[2018-01-01 16:58] LABS: Bacteria/HPF None Seen HPF (None Seen); Hyaline Casts/LPF 0-3 HYALINE CAST LPF (0-3 Hyaline); Pathc Cast-AUWi Flag 0.58 (0-2.49); RBC/HPF 21-50 HPF (0-3); Squamous Epithelial 0-3 HPF (0-3); WBC/HPF 0-3 HPF (0-3)
[2018-01-01 17:13] LABS: ALT (SGPT) 18 U/L (8-55); AST (SGOT) 57 U/L (5-34); Albumin 3.2 g/dL (3.4-4.8); Alkaline Phosphatase 106 U/L (40-150); Anion Gap 17 mmol/L (10-20); BUN (Urea Nitrogen) 25 mg/dL (8.4-25.7); Bilirubin, Total 0.3 mg/dL (0.2-1.2); Calc. Creatinine Clearance 0 mL/min (70-130); Calcium 8.2 mg/dL (7.8-10.44); Carbon Dioxide 24 mmol/L (23-31); Chloride 95 mmol/L (98-107); Estimated GFR-MDRD 71; Globulin 4.5 g/dL (2.4-3.5); Glucose 241 mg/dL (83-110); Protein, Total 7.7 g/dL (5.8-8.1); Sodium 133 mmol/L (136-145)
--- NOTE | 2018-01-01 17:13 | RAD ---
PORTABLE CHEST ONE VIEW: 01/01/18 at 4:34 p.m. HISTORY: Weakness, shortness of breath and cough. FINDINGS: Comparison made with exam of 10/14/17. There has been interval removal of the left sided central line noted on 10/14/17. The heart size is normal. The lungs are well expanded without lobar consolidation, pneumothoraces or pleural effusions. There is suggestion of a 12 mm nodule in the left upper lobe. IMPRESSION: 1. No radiographic evidence of acute cardiopulmonary process. 2. Probable 12 mm left upper lobe lung nodule. Further evaluation with CT scan is recommended. POS: [facility]
[2018-01-01 17:20] LABS: CKMB 13.2 ng/mL (0-6.6); Troponin I 2.375 ng/mL (< 0.028)
[2018-01-01] MEDS ORDERED: Octreotide Acetate 50 MCG/ML AMP ONE (17:36)
[2018-01-01] MEDS ORDERED: Ondansetron HCl/PF 4 MG/2 ML Vial ONE (17:36)
[2018-01-01 17:45] LABS: INR-International Normal Ratio 1.5; Prothrombin Time 17.8 SEC (12.0-14.7)
[2018-01-01] MEDS ORDERED: Octreotide Acetate 1,250 MCG in Sodium Chloride 0.9% 250 ML 250 ML IVPB SCH ×2 (17:45→22:37)
[2018-01-01] MEDS ORDERED: Vancomycin HCl 1.25 GM in Sodium Chloride 0.9% 250 ML 250 ML IVPB ONE (17:45)
[2018-01-01 17:50] LABS: Amphetamine Not Detected (NotDetected); Barbiturates Screen Not Detected (NotDetected); Benzodiazepine Screen Not Detected (NotDetected); Cocaine Metabolite Screen Not Detected (NotDetected); Medtox Control Line Valid? VALID (VALID); Medtox Reader # READER 1; Methadone Not Detected (NotDetected); Methamphetamine Not Detected (NotDetected); Opiate Screen Not Detected (NotDetected); Oxycodone Screen Not Detected (NotDetected); Phencyclidine (PCP) Not Detected (NotDetected); THC/Cannabinoid Screen Not Detected (NotDetected); Tricyclic Screen Not Detected (NotDetected)
[2018-01-01 17:51] LABS: Magnesium 1.6 mg/dL (1.6-2.6)
--- NOTE | 2018-01-01 18:07 | PDOC.FPRHP ---
- History of Present Illness Chief Complaint: vomiting History of Present Illness: This is a 72yo M with PMH of CAD, PVD, DM, bilateral partial foot amputations, and recent hospitalization with MRSA and septic emboli to cervical and lumbar epidural space with abscesses (reporting discharge on 12/13) presenting with a 3 day history of worsening nausea and vomiting. Pt reports that his vomit has often been of a dark brown-black color and that he has also been having sympoms of weakness and dizziness. Pt was supposed to take outpatient rifampin and minocycline after discharge but was unable to complete antibiotic course due to nausea/vomiting. Related decreased PO intake, and epigastric abdominal pain. Pt has long history of alcohol miss-use drinking an unspecified amount estimated to be a half glass of liquor every day. He also reports recent powdered NSAID use for control his back pain. Pt reports a prior GIB hospitalization at the [facility] 3 years ago in which they performed EGD and found him to have bleeding stomach varices likely attributable to his reported liver issues related to EtOH abuse. ED Course: EKG- negative, CXR- negative, trop- 2.375, CT abdomen- pending, started on Vanc , zofran, protonix, and octreotide - Allergies/Adverse Reactions Allergies Allergy/AdvReac Type Severity Reaction Status Date / Time No Known Allergies Allergy Verified 11/05/17 16:38 - Home Medications Medication Instructions Recorded Confirmed Type Amiodarone [Cordarone] 200 mg PO DAILY #30 tab 11/05/17 01/02/18 Rx Budesonide [Pulmicort Neb Solution] 0.5 mg INH BID #60 ampule 11/05/17 01/02/18 Rx DULoxetine [Cymbalta] 30 mg PO DAILY 1 Days #30 cap 12/11/17 01/02/18 Rx Digoxin [Lanoxin] 0.125 mg PO QAM #30 tab 12/11/17 01/02/18 Rx Ergocalciferol [Drisdol] 1.25 mg PO Q7D@0900 #30 cap 12/11/17 01/02/18 Rx Ferrous Sulfate [Feosol] 325 mg PO QAM-WM #30 tab 12/11/17 01/02/18 Rx Furosemide 40 mg PO DAILY #30 tablet 12/11/17 01/02/18 Rx HumaLOG [HumaLOG Vial] 5 units SC 0730 #10 ml 12/11/17 01/02/18 Rx HumaLOG [HumaLOG Vial] 5 units SC 1130 #10 ml 12/11/17 01/02/18 Rx Insulin Glargine,Hum.Rec.Anlog 40 unit SQ HS #7 pen 12/11/17 01/02/18 Rx [Lantus Solostar] Insulin Glargine,Hum.Rec.Anlog 80 unit SQ QAM #7 pen 12/11/17 01/02/18 Rx [Lantus Solostar] Ipratropium/Albuterol Sulfate 3 ml NEB Q6HR #30 neb 12/11/17 01/02/18 Rx [DuoNeb] Lactobacillus [Floranex] 1 tab PO DAILY #30 tab 12/11/17 01/02/18 Rx Levothyroxine Sodium [Synthroid] 175 mcg PO DAILY #30 tablet 12/11/17 01/02/18 Rx Magnesium Oxide 400 mg PO DAILY #30 tab 12/11/17 01/02/18 Rx Minocycline [Minocycline HCl] 100 mg PO BID #60 cap 12/11/17 01/02/18 Rx Pantoprazole [Protonix] 40 mg PO DAILY #30 tab 12/11/17 01/02/18 Rx Rifampin [Rifadin] 300 mg PO 1000,2200 #60 cap 12/11/17 01/02/18 Rx fentaNYL [Duragesic] 75 mcg TD Q3D #5 patch 12/11/17 01/02/18 Rx Gabapentin [Neurontin] 300 mg PO BID 01/02/18 01/02/18 History Ondansetron [Zofran ODT] 4 mg PO Q6H PRN 01/02/18 01/02/18 History metFORMIN [Glucophage] 500 mg PO QAM-WM 01/02/18 01/02/18 History - History PMHx: HTN, CAD, a-fib, epidural abscess, DM2, EtOH liver cirrhosis, UGIB PSHx: Bilateral partial foot amputations, Cholecystectomy FHx: DM Social: 150 pack year hx, EtOH- hx of missuse, drugs denies - Review of Systems General: reports: fatigue. denies: fever/chills ENT: denies: nasal congestion Respiratory: reports: shortness of breath, exercise intolerance Cardiovascular: denies: chest pain, palpitation Gastrointestinal: reports: nausea, vomiting, GI bleeding Skin: denies: rashes, lesions Musculoskeletal: reports: pain, stiffness Neurological: reports: weakness - Vital signs BP: [141/95] HR: [129] RR: [10] Tmax: [100.1] Pox: [97]% on [RA] Wt: [82kg] - Physical Exam Constitutional: awake, alert and oriented, other (pt appears in moderate distress due to nausea and back pain) HEENT: normocephalic and atraumatic, EOMI, conjunctiva clear, grossly normal hearing, normal nasal mucosa Chest: no-tender to palpation Heart: pulses present -Heart: tachycardic, regular rhythm, grade 4/6 holosystolic murmur Lungs: CTAB, no respiratory distress, good air movement Abdomen: soft -Abdomen: moderate epigastric tenderness to palpation, no rebound tenderness -Musculoskeletal: lower extremeties thin and appear malnourished Skin: no rash/lesions, no jaundice Heme/Lymphatic: no unusual bruising or bleeding, no purpura Psychiatric: normal mood and affect, good judgment and insight FMR H&P: Results - Labs Result Diagrams: 01/02/18 06:44 01/02/18 01:37 Lab results: WBC 5.6 thou/uL (4.8-10.8) 01/01/18 16:41 Hgb 9.2 g/dL (14.0-18.0) L 01/01/18 16:41 Hct 26.6 % (42.0-52.0) L 01/01/18 16:41 MCV 92.2 fL (78.0-98.0) 01/01/18 16:41 Plt Count 292 thou/uL (130-400) 01/01/18 16:41 Neutrophils % 69.0 % (42.0-75.0) 01/01/18 16:41 Sodium 133 mmol/L (136-145) L 01/01/18 16:41 Potassium 3.0 mmol/L (3.5-5.1) L 01/01/18 16:41 Chloride 95 mmol/L (98-107) L 01/01/18 16:41 Carbon Dioxide 24 mmol/L (23-31) 01/01/18 16:41 BUN 25 mg/dL (8.4-25.7) 01/01/18 16:41 Creatinine 1.03 mg/dL (0.6-1.3) 01/01/18 16:41 Glucose 241 mg/dL (83-110) H 01/01/18 16:41 Lactic Acid 2.3 mmol/L (0.5-2.2) H 01/01/18 16:41 Calcium 8.2 mg/dL (7.8-10.44) 01/01/18 16:41 Total Bilirubin 0.3 mg/dL (0.2-1.2) 01/01/18 16:41 AST 57 U/L (5-34) H 01/01/18 16:41 ALT 18 U/L (8-55) 01/01/18 16:41 Alkaline Phosphatase 106 U/L (40-150) 01/01/18 16:41 CK-MB (CK-2) 13.2 ng/mL (0-6.6) H* 01/01/18 16:41 Serum Total Protein 7.7 g/dL (5.8-8.1) 01/01/18 16:41 Albumin 3.2 g/dL (3.4-4.8) L 01/01/18 16:41 Lipase 52 U/L (8-78) 01/01/18 16:40 Urine Ketones 15 mg/dL (Negative) H 01/01/18 16:40 Urine Blood Large (Negative) H 01/01/18 16:40 Urine Nitrite Negative (Negative) 01/01/18 16:40 Ur Leukocyte Esterase Negative (Negative) 01/01/18 16:40 Urine RBC 21-50 HPF (0-3) H 01/01/18 16:40 Urine WBC 0-3 HPF (0-3) 01/01/18 16:40 Ur Squamous Epith Cells 0-3 HPF (0-3) 01/01/18 16:40 Urine Bacteria None Seen HPF (None Seen) 01/01/18 16:40 FMR H&P: A/P - Problem List (1) Symptomatic anemia Current Visit: Yes Status: Acute Code(s): D64.9 - ANEMIA, UNSPECIFIED (2) Acute GI bleeding Current Visit: No Status: Acute Code(s): K92.2 - GASTROINTESTINAL HEMORRHAGE , UNSPECIFIED (3) Demand ischemia of myocardium Current Visit: No Status: Acute Code(s): I24.8 - OTHER FORMS OF ACUTE ISCHEMIC HEART DISEASE (4) Epidural abscess Current Visit: No Status: Acute Code(s): G06.2 - EXTRADURAL AND SUBDURAL ABSCESS, UNSPECIFIED (5) Hypokalemia Current Visit: No Status: Acute Code(s): E87.6 - HYPOKALEMIA (6) Alcoholic cirrhosis of liver Current Visit: No Status: Chronic Code(s): K70.30 - ALCOHOLIC CIRRHOSIS OF LIVER WITHOUT ASCITES Qualifiers: Ascites presence: without ascites Qualified Code(s): K70.30 - Alcoholic cirrhosis of liver without ascites (7) Anxiety and depression Current Visit: No Status: Chronic Code(s): F41.9 - ANXIETY DISORDER, UNSPECIFIED; F32.9 - MAJOR DEPRESSIVE DISORDER, SINGLE EPISODE, UNSPECIFIED (8) DM type 2 (diabetes mellitus, type 2) Current Visit: No Status: Chronic Qualifiers: 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: with senior care use Diabetes mellitus complication status: without complication Qualified Code(s): E11.9 - Type 2 diabetes mellitus without complications; Z79.4 - vermin exterminator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 (9) HTN (hypertension) Current Visit: No Status: Chronic Code(s): I10 - ESSENTIAL (PRIMARY) HYPERTENSION (10) Hypothyroidism Current Visit: No Status: Chronic Code(s): E03.9 - HYPOTHYROIDISM, UNSPECIFIED (11) PVD (peripheral vascular disease) Current Visit: No Status: Chronic Code(s): I73.9 - PERIPHERAL VASCULAR DISEASE, UNSPECIFIED (12) Tobacco abuse Current Visit: No Status: Chronic Code(s): Z72.0 - TOBACCO USE - Plan 72yoM with extensive medical hx presenting with likely symptomatic anemia likely 2/2 to GIB. Symptomatic Anemia 2/2 GIB A- 2 day hx of coffee ground emesis, H/H is 9.2/26.6. Pt appears mildly volume depleted but received fluids in ED. GIB could be due to gastric ulcer or UGI varices due to EtOH abuse hx. Pt appears stable at this time. P- Protonix loading dose then, 40mg BID IV -Octreotide drip -Zofran prn for nausea -GI is consulted and plans to see pt tonight -LR 120ml/hr -NPO Nausea/Vomiting A- symptoms controlled in ED with zofran P- IV zofran prn for nausea Atrial fibrillation A- Pt controlled on home Amiodarone (half life 53 days), and digoxin. EKG today shows regular rhythm. Sinus tachy. P- Hold amiodarone untill tolerating PO intake. -resume home digoxin, but IV Demand Ischemia of the myocardium A- initial trop 2.375, hx of decreased PO intake and vomiting with anemia. Pt denies CP at this time. P- trend troponins -monitor pt for cardiac symptoms Recent epidural infection A- Pt treated in hospital with reported 14 day course of Vanc and outpatient doxy and minocycline (did not finish outpatient course). Pt afebrile but complains of continued back pain. Started on Vanc in ED P- Continue Vanc -will consider imaging for further evaluation -will consider ID consult in AM Hypokalemia A- K of 3 on presentation, pt has orders for IV Potassium in ED P- follow up CMP in AM HTN A- SBP in 140s at this time, pt has home coreg, NPO at this time P- PRN labetolol Hypothyroid -continue home med once tolerating PO intake Diabetes mellitus type 2 -moderate SSI -accuchecks q6hr PVD -s/p partial bilateral foot amputations Alcohol missuse -ASE protocol Tobacco use -patch nicotine FMR H&P: Upper Level - Pertinent history John Cruz is a 72 year old male with a multiple chronic medical problems who presents to the ED with several days of intractable nausea/vomiting. He reports vomiting black material. He reports consuming more BC powder for his back pain. He has a history of cirrhosis secondary to alcohol abuse. He states that he his most recent EGD was several years ago. He also reports generalized weakness for the past couple of days. In the ED he received 1 L NS, Vancomycin 1.25 g, Potassium 40 meq, Octreotide Pt had a recent hospitalization from 10/14 to 11/05/2017 for Sepsis with acute organ dysfunction, MRSA bacteremia, Acute lower GI bleed secondary to diverticulosis, demand ischemia, diskitis. osteomyelitis with epidural abscess and presumed endocarditis with splenic and pulmonary infarcts and atrial fibrillation with RVR. During this hospitalization. He required 9 units of blood for diverticular bleed. Surgery was consulted, and pt was not deemed to be a good candidate for colon resection. Regarding the MRSA bacteremia, he was treated with antibiotics and was discharged to [facility] from 201712/12/2017. for 8 weeks of IV Vancomycin. - Pertinent findings Vitals: BP: 165/113 P: 113 RR: 18 Tmax: 100.1 Weight: 81.65 Physical Exam: General: Alert and oriented x 3 Heart: tachycardic; 3/6 systolic ejection murmur. Lungs: clear to auscultation Abodmen: + bowel sounds; Epigastric tenderness to palpation; no rebound or guarding. Extremities: 1-5 digital amputations on left foot; 1-3 digital amputations on right foot; no peripheral edema. CBC, CMP as above. Troponin: 2.375. EKG: No ST-segment elevations; regular rhythm CT abd/pelvis: pending. CXR: no acute process. 12 mm L upper lobe nodule. - Plan Date/Time: 01/01/181805 I, Nivia Matute, have evaluated this patient and agree with findings/plan as outlined by manager internal resident. Pertinent changes/additions are listed here. Symptomatic anemia 2/2 upper GI bleed. - We will admit patient to IMCU on an inpatient basis. - Octreotide, Protonix 80 mg loading dose and 40 mg BID - GI consulted for possible EGD - NPO except ice chips Diskitis, Osteomyelitis with epidural abscess - Continue Vancomycin 1.25 mg BID - Vanc trough - Resume Rifampin and Minocycline when he is able to take PO. - Consider discussing case with Meño in AM. - Fentanyl for pain Hypokalemia - Received replacement in ED - Will repeat BMP in AM Lactic acidosis - Lactic acid 2.3. will give fluids. - Will repeat in 2 hours. Demand Ischemia - Elevated troponin likely secondary to anemia - Will continue to trend troponins. Severe Aortic stenosis - CV surgery consulted from previous hospitalization pt deemed poor surgical candidate. Cirrhosis with portal hypertension - Secondary to alcohol abuse - MELD score 11 consistent with 6.0 % 3-month mortality. Coronary Artery disease - 3-vessel diseasae per cath from 07/2017. Pt not deemed surgical candidate for CABG, medically managed. Diabetes mellitus - Recently discharged with regimen of Metformin 250 mg QD, Lantus 80 units qam , Humalog 5 units BID. - Will check A1C. Atrial Fibrillation - Pt currently NPO for possible GI intervention. - Will attempt to convert PO medications to IV. Tobacco Abuse - Cessation education - TD nicotine Alcohol abuse - ASE protocol. Lung Nodule - Seen on CXR fom 01/01 (12 mm) - Seen on previous CXR (18 mm) and Chest CT from 07/2017. - Size appears stable, continue to monitor. DVT prophylaxis: SCDs. Disposition: stable; at least 2 midnights. Attending Addendum - Attending Addendum Date/Time: 01/01/181915 I personally evaluated the patient and discussed the management with Dr. Gupta and Dr. Matute I agree with the History, Examination, Assessment and Plan documented above with any addition or exceptions noted below. 72 yo male with multiple medical conditions admitted for GI bleeding. Patient with multiple risk factors including alcohol use and NSAID use. Patient with history of portal HTN and varacies with previous episode of bleeding. Patient also with recent opiate withdrawal causing increased N/V over the past 3 days which could have exacerbated a varacies. GI bleeding: Will admit and trend H&H q 6 hours. Transfuse as needed. Give PPI dose. Consult GI. Give IVFs. Opiate withdrawal: Restart medication at low dose. Cover pain control. Treat symptoms. Hx of CAD/PVD: Demand ischemia/NSTEMI. Trend trops. Asymptomatic. No EKG changes. Continue to trend. Monitor H&H. If stable and no signs of acute bleeding consider anticoagulation with risk discussed with patient. Cards consult. ECHO to compare. Staph infection: Incomplete treatment. Repeat blood cultures. Restart Vanc. Discuss with ID in AM. Chronic alcohol use: ASE protocol. Adjust home meds as needed. Replace electrolytes as needed. Pam
--- NOTE | 2018-01-01 18:39 | CT ---
CT OF THE ABDOMEN AND PELVIS WITH CONTRAST: 01/01/18 COMPARISON: None. HISTORY: Vomiting black emesis for two days. Patient had recent spinal infection. TECHNIQUE: Multiple contiguous axial images were obtained in a CT of the abdomen and pelvis with contrast. Coron al reformats were performed. FINDINGS: There is a stable hypodense region in the spleen which is multilobulated in appearance. The patient i s status post cholecystectomy. There appears to be diffuse fatty infiltration of the liver. The liver demonstrates a slightly nodular contour which may be secondary to cirrhosis. The kidneys, adrenal gl ands, and pancreas are unremarkable. No free air, free fluid, or stranding changes are seen in the abdomen or pelvis. Moderate stool reten tion is seen in the rectum. The small bowel is normal in caliber. The appendix is not definitely seen . No abdominal or pelvic lymphadenopathy are seen. Atherosclerotic calcifications are seen within the a dio. Degenerative changes are seen in the spine. The visualized inferior thorax and abdominal wall soft ti ssues are unremarkable. IMPRESSION: 1. No evidence of acute intra-abdominal/pelvic abnormality. 2. Stable hypodensity in the spleen may represent cystic change. This may be sequela from prior remote splenic trauma. 3. Fatty liver. 4. Nodular contour of the liver may represent developing cirrhosis. POS: [facility]
[2018-01-01] MEDS ORDERED: Potassium Chloride 40 MEQ in Sodium Chloride 0.9% 250 ML 250 ML IVPB SCH (19:00)
[2018-01-01] MEDS ORDERED: Acetaminophen 325 MG TAB ONE (19:37)
[2018-01-01] MEDS ORDERED: Dextrose 5% in Water 1,000 ML IV PRN (20:03)
[2018-01-01] MEDS ORDERED: Pantoprazole 40 MG VIAL IVP ONE (20:05)
[2018-01-01 20:11] LABS: Troponin I 3.101 ng/mL (< 0.028)
[2018-01-01 20:21] LABS: Hemoglobin A1c 5.9 % (4.0-6.0)
[2018-01-01 20:41] LABS: Lactic Acid 1.3 mmol/L (0.5-2.2)
[2018-01-01] MEDS ORDERED: Labetalol HCl 100 MG/20 ML VIAL SLOW IVP PRN (21:14)
[2018-01-01] MEDS: Fentanyl 100 MCG/2 ML VIAL SLOW IVP PRN (23:19)
[2018-01-01] MEDS: Lactated Ringer's 1,000 ML IV SCH (23:30)
[2018-01-02] MEDS ORDERED: Diazepam 5 MG TAB PO PRN (01:05)
[2018-01-02] MEDS ORDERED: Lorazepam 2 MG/ML VIAL SLOW IVP PRN (01:08)
[2018-01-02] MEDS ORDERED: Thiamine HCl 200 MG/2 ML VIAL IM SCH (01:15)
[2018-01-02] MEDS ORDERED: Diazepam 5 MG TAB PO SCH (01:15)
[2018-01-02] MEDS: Fentanyl 100 MCG/2 ML VIAL SLOW IVP PRN ×6 (01:51→23:11)
[2018-01-02 02:01] LABS: Hemoglobin 8.2 g/dL (14.0-18.0); Mean Corpuscular HGB CONC 34.1 g/dL (32.0-36.0); Mean Corpuscular Volume 93.8 fL (78.0-98.0); Mean Platelet Volume 6.9 fL (7.4-10.4); Platelet Count 210 thou/uL (130-400); RBC Distribution Width 17.8 % (11.5-14.5); Red Blood Cell (RBC) Count 2.58 mill/uL (4.70-6.10)
[2018-01-02 02:02] LABS: #Lymphocytes 1.4 thou/uL (1.20-3.40); #Monocytes 0.6 thou/uL (0.11-0.59); #Neutrophils 4.1 thou/uL (1.40-6.50); %Basophils 0.6 % (0.0-1.0); %Eosinophils 0.1 % (0.0-10.0); %Lymphocytes 22.2 % (21.0-51.0); %Monocytes 10.2 % (0.0-10.0); %Neutrophils 66.9 % (42.0-75.0); Hemoglobin 8.1 g/dL (14.0-18.0); Mean Corpuscular HGB CONC 33.8 g/dL (32.0-36.0); Mean Corpuscular Hemoglobin 31.6 pg (27.0-31.0); Mean Corpuscular Volume 93.7 fL (78.0-98.0); Mean Platelet Volume 6.8 fL (7.4-10.4); Platelet Count 207 thou/uL (130-400); RBC Distribution Width 17.7 % (11.5-14.5); Red Blood Cell (RBC) Count 2.56 mill/uL (4.70-6.10); White Blood Cell (WBC) Count 6.1 thou/uL (4.8-10.8)
[2018-01-02 02:28] LABS: ALT (SGPT) 19 U/L (8-55); AST (SGOT) 59 U/L (5-34); Alkaline Phosphatase 95 U/L (40-150); Anion Gap 14 mmol/L (10-20); BUN (Urea Nitrogen) 18 mg/dL (8.4-25.7); Bilirubin, Total 0.4 mg/dL (0.2-1.2); Calc. Creatinine Clearance 78 mL/min (70-130); Calcium 7.7 mg/dL (7.8-10.44); Carbon Dioxide 25 mmol/L (23-31); Chloride 101 mmol/L (98-107); Estimated GFR-MDRD 77; Globulin 3.9 g/dL (2.4-3.5); Glucose 189 mg/dL (83-110); Potassium 3.7 mmol/L (3.5-5.1); Protein, Total 6.9 g/dL (5.8-8.1); Sodium 136 mmol/L (136-145)
[2018-01-02 03:11] LABS: Critical Call Chem Troponin I RESULT DECREASING; Troponin I 2.914 ng/mL (< 0.028)
[2018-01-02 04:24] LABS: Digoxin Less than 0.15 ng/mL (0.8-2.0)
[2018-01-02] MEDS: Nicotine 14 MG PATCH TD SCH (05:26)
[2018-01-02] MEDS: Vancomycin HCl 1.25 GM in Sodium Chloride 0.9% 250 ML 250 ML IVPB SCH ×2 (05:27→20:49)
--- NOTE | 2018-01-02 06:05 | PDOC.FM ---
- Subjective Subjective: Patient is doing well this morning, only complaint is being hungry. He reports no vomiting episodes since admission. His VS remained stable overnight. He is scheduled for EGD today. He reports binge drinking last week, prior to that had been sober for >1 year. - Objective MAR Reviewed: Yes Vital Signs & Weight: Vital Signs (12 hours) Temp Pulse Resp BP Pulse Ox 01/02/18 04:00 98.4 F 83 18 153/70 H 100 01/02/18 00:00 98.2 F 103 H 16 136/75 100 01/01/18 23:10 96 01/01/18 22:40 99.6 F 97 18 152/92 H 96 Weight Weight 79.3 kg I&O: 12/31/17 01/01/18 01/02/18 06:59 06:59 06:59 Intake Total 1200 Output Total 600 Balance 600 Result Diagrams: 01/02/18 06:44 01/02/18 01:37 EKG Reviewed by me: Yes <Yun Iqbal - Last Filed: 01/02/18 10:05> - Objective Vital Signs & Weight: Vital Signs (12 hours) Temp Pulse Resp BP BP Pulse Ox 01/02/18 09:25 105 H 01/02/18 08:22 100 01/02/18 07:56 148/77 H 01/02/18 07:37 98.8 F 105 H 20 148/77 H 100 01/02/18 07:19 97 18 100 01/02/18 04:00 98.4 F 83 18 153/70 H 100 01/02/18 00:00 98.2 F 103 H 16 136/75 100 01/01/18 23:10 96 Weight Weight 79.3 kg I&O: 01/01/18 01/02/18 01/03/18 06:59 06:59 06:59 Intake Total 1200 Output Total 600 Balance 600 Result Diagrams: 01/02/18 06:44 01/02/18 01:37 <Lynsey Mann - Last Filed: 01/02/18 10:44> Phys Exam - Physical Examination Constitutional: NAD HEENT: PERRLA, moist MMs, sclera anicteric Neck: no JVD Respiratory: no rales scattered wheezing Cardiovascular: RRR, no significant murmur Gastrointestinal: soft slightly ttp diffusely Musculoskeletal: no edema Neurological: non-focal, moves all 4 limbs Psychiatric: normal affect, A&O x 3 <Yun Iqbal - Last Filed: 01/02/18 10:05> Dx/Plan (1) Symptomatic anemia Code(s): D64.9 - ANEMIA, UNSPECIFIED Status: Acute (2) Acute GI bleeding Code(s): K92.2 - GASTROINTESTINAL HEMORRHAGE, UNSPECIFIED Status: Acute (3) Anemia due to acute blood loss Code(s): D62 - ACUTE POSTHEMORRHAGIC ANEMIA Status: Acute (4) Discitis of cervical region Code(s): M46.42 - DISCITIS, UNSPECIFIED, CERVICAL REGION Status: Acute (5) Discitis of lumbosacral region Code(s): M46.47 - DISCITIS, UNSPECIFIED, LUMBOSACRAL REGION Status: Acute (6) Epidural abscess Code(s): G06.2 - EXTRADURAL AND SUBDURAL ABSCESS, UNSPECIFIED Status: Acute (7) 3-vessel CAD Status: Chronic (8) Alcoholic cirrhosis of liver Code(s): K70.30 - ALCOHOLIC CIRRHOSIS OF LIVER WITHOUT ASCITES Status: Chronic Qualifiers: Ascites presence: without ascites Qualified Code(s): K70.30 - Alcoholic cirrhosis of liver without ascites (9) Anxiety and depression Code(s): F41.9 - ANXIETY DISORDER, UNSPECIFIED; F32.9 - MAJOR DEPRESSIVE DISORDER, SINGLE EPISODE, UNSPECIFIED Status: Chronic (10) Aortic stenosis Code(s): I35.0 - NONRHEUMATIC AORTIC (VALVE) STENOSIS Status: Chronic (11) DM type 2 (diabetes mellitus, type 2) Status: Chronic Qualifiers: Diabetes mellitus accounting practice manager insulin use: with accounting practice manager use Diabetes mellitus complication status: without complication Qualified Code(s): E11.9 - Type 2 diabetes mellitus without complications; Z79.4 - pattern repair person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 (12) Hypoalbuminemia due to protein-calorie malnutrition Code(s): E46 - UNSPECIFIED PROTEIN-CALORIE MALNUTRITION Status: Chronic - Plan Plan: Symptomatic anemia 2/2 upper GI bleed. -VSS, Hg dropped from 9.2 on admission to 8.2 this morning, but likely 2/2 dilution. Emesis resolved with zofran. Plan to transfuse for Hg </= 7 -continue H/H q8h -continue Octreotide, Protonix -GI plans for EGD this am. -okay to transfer to tele. Diskitis, Osteomyelitis with epidural abscess -Continue Vancomycin 1.25 mg BID while NPO -Resume Rifampin and Minocycline when he is able to take PO. -consult Meño -Fentanyl for pain Demand Ischemia -Elevated to 3.1, now downtrending to 2.9 most recently -continue to trend Severe Aortic stenosis -CV surgery consulted from previous hospitalization pt deemed poor surgical candidate. Protein-Calorie Malnutrition -Albumin continues to be low 3.0 -consult reeling and tubing machine operator and consider ensure once PO. Cirrhosis with portal hypertension -2/2 to alcohol abuse -MELD score 11 consistent with 6% 3-month mortality. Coronary Artery disease -3v disease on cath 07/2017- medically managed, poor surgical candidate per Cards -avoid ASA with current GI bleed Diabetes mellitus -Continue home regimen of Metformin 250 mg QD, Lantus 80 units qam, Humalog 5 units BID. -SSI -Will check A1C. pAfib -IV digoxin while NPO -telemetry monitoring -not on any anticoagulation per home med rec likely 2/2 hx of GI bleed Tobacco Abuse -Cessation education -TD nicotine Alcohol abuse -ASE protocol. Lung Nodule -Seen on CXR fom 01/01 (12 mm) -Seen on previous CXR (18 mm) and Chest CT from 07/2017. -Size appears stable, continue to monitor. DVT prophylaxis: SCDs. <Yun Iqbal - Last Filed: 01/02/18 10:05> Attending Addendum - Attending Addendum Date/Time: 01/02/18 1040 I personally evaluated the patient and discussed the management with Dr. Iqbal I agree with the History, Examination, Assessment and Plan documented above with any addition or exceptions noted below- Patient without complaints. States that he is feeling better. Still has some nausea but no further vomiting. Afebrile VSS. A/P: 1) N/V with hematemesis- FOBT positive; h/o GI bleed in past both diverticular most recently and variceal in past. Continue octreotode and PPI. GI consulted and planning on EGD today. H/H stable- continue to moniotr. 2 ) H/o discitis- continue vanc until able to convert to po abx. 3) H/o ETOH abuse - no evidence of wihtdrawal currently; continue to monitor. Encourage cessation. <Lynsey Mann - Last Filed: 01/02/18 10:44>
[2018-01-02 06:55] LABS: Hemoglobin 7.9 g/dL (14.0-18.0)
[2018-01-02] MEDS: Budesonide 0.5 MG/2 ML NEB NEB SCH ×2 (07:19→18:24)
[2018-01-02] MEDS ORDERED: Digoxin 0.5 MG/2 ML AMP SLOW IVP SCH (09:00)
[2018-01-02] MEDS: Multivitamin W/ Minerals 1 TAB PO SCH (09:24)
[2018-01-02] MEDS: Pantoprazole 40 MG VIAL IVP SCH ×2 (09:24→21:07)
[2018-01-02] MEDS: Folic Acid 1 MG TAB PO SCH (09:24)
[2018-01-02] MEDS ORDERED: Lidocaine 1% PF 5 ML VIAL ONE (10:47)
[2018-01-02] MEDS ORDERED: PROPOFOL 200 MG/20 ML VIAL ONE (10:47)
--- NOTE | 2018-01-02 12:33 | PQF ---
Date: 01-02-18 ATTN: DR. CLARISSA AGUILERA Please exercise your independent, professional judgment in responding to the clarification form. Clinical indicators are provided on the bottom of this form for your review Please check appropriate box(s): [ x ] Protein Calorie Malnutrition: [ ] Mild [ x] Moderate [ ] Severe [ ] Cachexia [ ] Other diagnosis [ ] Unable to determine In addition, please specify: Present on Admission (POA): [ x ] Yes [ ] No [ ] Unable to determine CLINICAL INDICATORS - SIGNS / SYMPTOMS / LABS BMI of 23.7 ALBUMIN 01-01-18: 3.[address] CLARISSA COATES/ DR. BLADE BOWENS 01-02-18: HYPOALBUMINEMIA D/T PROTEIN CALORIE MALNUTRITION CIVIL CAD TECH CONSULT 01-02-18: Patient c/o starving this AM, has not had anything to eat since the weekend. He reports beginning to feel sick, was holding down soup and Ensure and then began having frequent N/V, unable to keep any PO down during the last 3-4 days. Patient has noticed weight loss in the last 2 weeks, UBW was 184 lbs at that time. He does not have dentures with him currently but asked his son to bring them when he visits later today. Patient would benefit from mechanical soft textures once diet is advanced if son is unable to bring them to the hospital. He is currently NPO for planned EGD. 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 Continue NPO status 2. When medically appropriate, ADAT to a Consistent Carbohydrate/ Heart Healthy diet, may consider a Fiber Restriction pending EGD 3. Recommend Glucerna Shakes TID once diet is advanced 4. Continue MVI, folic acid, and thiamine Moderate Malnutrition (in acute illness) Energy Intake: <75% of estimated energy requirement for > 7 days Weight Loss: 1-2%/1 week; 5%/ 1 month; 7.5%/3 months Other: mild body fat loss; mild muscle mass loss; mild fluid accumulation; Severe Malnutrition (in acute illness) Energy Intake: < 50% of estimated energy requirement for > 5 days Weight Loss: >1-2%/1 week; >5%/1 month; >7.5%/3 months Other: moderate body fat loss; moderate muscle mass loss; moderate- severe fluid accumulation; measurably reduced breast trimmer strength Moderate Malnutrition (in chronic illness) Energy Intake: <75% of estimated energy requirement for >1 month Weight Loss: 5%/1 month; 7.5%/3 months; 10%/6 months; 20%/1 year Other: mild body fat loss; mild muscle mass loss; mild fluid accumulation Severe Malnutrition (in chronic illness) Energy Intake: <75% of estimated energy requirement for >1 month Weight Loss: >5%/1 month; >7.5%/3 months; >10%/6 months; >20%/1 year Other: severe body fat loss; severe muscle mass loss; severe fluid accumulation ; measurably reduced breast trimmer strength (This form is maintained as a part of the permanent medical record) 2014 [employer]. All Rights Reserved VIVIENNE [email or web address] Office: [phone] [facility] AMER[facility] HOSPITALReuben
[2018-01-02 13:53] LABS: Hemoglobin 8.1 g/dL (14.0-18.0)
--- NOTE | 2018-01-02 15:44 | CON ---
DATE OF CONSULTATION: 01/02/2018 REASON FOR CONSULTATION: Non-STEMI. PRIMARY RN PATIENT CARE: Catherine Amin M.D. HISTORY OF PRESENT ILLNESS: Mr. Cruz is a very pleasant 72-year-old white gentleman who comes to [facility] vomiting. He has noted recent vomiting that seems to be dark brown, described as cof fee ground. He has had this for the last 3 days. He was admitted recently to the hospital for MRSA with septic emboli to the cervical and lumber epidural space with abscesses. He has been seen by Dr. Amin in the past back in July. He had a heart catheterization that showed multivessel coronary brian ry disease that is nonoperable. He was evaluated by CT surgery and he is not a candidate for any galen gical intervention. He was treated medically at that time. He comes in for a GI bleed and troponins were drawn and they were elevated, so Cardiology is being consulted. On my evaluation, Mr. Cruz denies any chest pain, tightness, or pressure. No shortness of breath, only feeling fatigued and tired. PAST MEDICAL HISTORY: 1. Hypertension. 2. Coronary artery disease, multivessel, nonoperable. 3. History of atrial fibrillation. 4. Epidural abscesses. 5. Type 2 diabetes. 6. Alcoholic liver cirrhosis. 7. History of upper gastrointestinal bleeds in the past from peptic ulcer disease. 8. PVD. PAST SURGICAL HISTORY: 1. Bilateral partial foot amputation. 2. Cholecystectomy. FAMILY HISTORY: Noncontributory. SOCIAL HISTORY: [id number] history of smoker, alcohol use, no drug use. OUTPATIENT MEDICATIONS: Include, 1. Amiodarone 200 mg. 2. Pulmicort. 3. Cymbalta. 4. Digoxin 0.125 mg a day. 5. Ergocalciferol. 6. Ferrous sulfate. 7. Lasix 4 mg a day. 8. Humalog. 9. Insulin Lantus. 10. DuoNeb. 11. Lactobacillus. 12. Levothyroxine 175 mcg a day. 13. Magnesium oxide. 14. Minocycline 100 mg b.i.d. 15. Pantoprazole 40 mg a day. 16. Rifampin. 17. Fentanyl 75 mcg patch every third day. 18. Gabapentin 300 mg b.i.d. 19. Zofran. 20. Metformin 500 mg daily. REVIEW OF SYSTEMS: A 12-point review of systems was done and is all negative unless stated in the hi story of present illness. PHYSICAL EXAMINATION: VITAL SIGNS: Temperature maximum has been 100.1, but recently more 98.3, pulse 101, respiration rate 16, satting 100% on 2 liters nasal cannula, blood pressure 117/76. GENERAL: Awake, alert, oriented x3, in no distress. HEENT: Normocephalic, atraumatic. NECK: Supple. LUNGS: Clear. CARDIOVASCULAR: S1, S2, no S3 or S4. There is a grade 3/6 mid to late peaking systolic murmur, it r adiated to the rest of the precordium. ABDOMEN: Soft, positive bowel sounds. EXTREMITIES: No edema. SKIN: Warm and dry. LABORATORY WORK: Reviewed. Hemoglobin baseline has always been low. She has been as low as 5.7 in October, but currently came in at 9.0, as low as 7.9 and back up to 8.1. INR is 1.5. Chemistries remarkable for just elevated glucose. Troponins have been a 2.3, then 3.1, down to 2.9. UA is large blood, 21-50 red cells. Toxicology is undetectable. EKG was reviewed. Telemetry was reviewed. CT of the abdomen and pelvis showed no evidence of intra-abdominal or pelvic abnormality, stable hypo densities in the spleen that may represent cysts, fatty liver and nodular contour of the liver repres enting developing cirrhosis. Most recent echocardiogram was done in October of this year. His LV function was read as 55%-60% with m oderate to severe aortic stenosis. ASSESSMENT: 1. Non-ST elevation myocardial infarction. 2. Moderate to severe aortic stenosis. 3. Upper gastrointestinal bleed. 4. Alcoholic cirrhosis. 5. Inoperable multivessel severe coronary artery disease. 6. Peripheral vascular disease. PLAN: 1. Certainly this could have been an intracoronary event; however, he has a contraindication for ant icoagulation at this time. Most likely, this has been demand ischemia from bleeding. We would treat the gastrointestinal bleeding at this time at this time as we cannot anticoagulate him or even given aspirin for now. 2. Repeat an echocardiogram to make sure that his left ventricular function is not getting any worse . 3. Patient is severely ill and would not be unexpected. 4. Dr. Amin, her primary best worker will follow up in the morning.
[2018-01-02] MEDS ORDERED: Fentanyl 100 MCG/2 ML VIAL ONE (16:36)
[2018-01-02] MEDS ORDERED: Midazolam HCl 2 mg/2 ml Vial ONE (17:04)
[2018-01-02] MEDS ORDERED: Sterile Water 10 ML ONE (17:23)
--- NOTE | 2018-01-02 17:26 | CON ---
DATE OF CONSULTATION: 01/01/2018 REFERRING DOCTOR: Dr. Yakov Gupta, [facility]. REASON FOR CONSULTATION: History of recurrent vomiting and vomiting coffee-ground material. HISTORY OF PRESENT ILLNESS: Mr. John Cruz is a 72-year-old male, who is known to me fro m before. The patient does go to [facility] in [place] on a regular basis. Most likely, he w as referred by the [facility] in [place]. He was hospitalized here late two months ago with acute [place] , infection of spine, and also GI bleeding. He had a colonoscopy and was found to have bleeding from left colon diverticular disease. With conservative treatment, his bleeding stopped. The patient wa s on IV antibiotics because of the spine infection for several days. Apparently, he went home recent ly. The patient comes in with history of vomiting persistently over the last couple of days. He has no abdominal pain. He has no dysphagia or odynophagia. He complains more of back pain and is very unhappy, however, with the pain medication. Apparently, he was on some pain patch . He was sup posed to be getting the pain medication, but he was unable to get it. He is most upset about not get ting pain medicines and actually . He says he has had been vomiting nonstop over the last coupl e of days, but today, he is actually feeling better. He says he vomited some coffee-ground emesis. The patient had an EGD a few months ago at the [facility]. At that time, ulcer dis ease. Although he has had persistent vomiting, his blood count is really not that low. On 8, his hemoglobin was 9.8; on 12/30/2017, it was 9; and today, 9.2 . Over the last several week s, was a little low. Further nothing much has changed over the last couple of weeks from his b lood count. He has had no melena. Besides the nausea and vomiting, he also complains of feeling diz zy and lightheaded and has unsteady gait. He has had no chest pain, no dyspnea or palpitations. ALLERGIES: None. SOCIAL HISTORY: The patient is a chronic smoker. He used to drink alcohol heavily before and has qu it drinking about 2-3 years ago. MEDICAL ILLNESSES: 1. Hypertension. 2. Type 2 diabetes mellitus. 3. Chronic obstructive pulmonary disease. 4. Depression. 5. Peripheral neuropathy. 6. Hyperlipidemia. 7. Peripheral vascular disease, status post amputation of right big toe and also left foot amputatio n earlier this year. 8. History of depression. 9. Status post cholecystectomy. 10. Status post [id number] myocardial infarction in 07/2017. 11. History of atrial fibrillation with fast ventricular rate. 12. History of spine infection, prolonged antibiotic therapy. 13. EGD and colonoscopy in the past. Last one was done a few months in this hospital and was having bleeding from left-sided diverticular disease. MEDICATIONS: List reviewed. REVIEW OF SYSTEMS: Ten-system review remarkable for: 1. Chronic back pain. 2. Persistent nausea and vomiting over the last 48 hours. 3. History of dizziness and feeling faint off and on, which has been chronic in nature. PHYSICAL EXAMINATION: GENERAL: He is awake, alert, and communicative. He is in no distress. VITAL SIGNS: Actually stable. His pulse is 75, blood pressure 142/80. He is afebrile. HEENT: Conjunctivae clear. NECK: Supple. No adenitis or thyromegaly noted. CARDIOVASCULAR SYSTEM: First and second heart sounds normal. systolic murmur. LUNGS: Clear to auscultate. ABDOMEN: Soft and nondistended. Abdomen is nontender. Does complain of some lower abdominal pain, but on physical exam, nontender. There is no organomegaly or masses. Bowel sounds are normal. EXTREMITIES: No edema. LABORATORY DATA: From today, WBC 5600, hemoglobin 9.2, hematocrit 26.6, MCV 92.2. A CBC done two da ys ago, hemoglobin 9, hematocrit 28; and 2 weeks ago, it was 9.8 and 29.1, so no significant drop in blood count. Chemistry panel: Sodium is 133, potassium 3, chloride 95, bicarbonate 24, BUN is 25, c reatinine 1.03, glucose 241, troponin is 13.2. CPK-MB 13.2, troponin 2.375, albumin 3.2. CLINICAL IMPRESSION: This is a 72-year-old male with persistent nausea and vomiting and hi story of coffee-ground vomiting. However, blood count has not really dropped over the last 2 weeks. He is hemodynamically stable. 1. back pain, on pain medication. 2. Diabetes. 3. Hypertension. 4. Qqo-BL-jqynthk elevation myocardial infarction few months ago. 5. Peripheral vascular disease. 5. Chronic obstructive pulmonary disease. 6. Depression. 7. Lower spine infection, antibiotic therapy. RECOMMENDATIONS: 1. IV PPI. 2. Clear liquid diet today and plan for EGD tomorrow. Also, would recommend serial H and H.
[2018-01-02] MEDS ORDERED: Ondansetron HCl/PF 4 MG/2 ML Vial IVP PRN (17:42)
[2018-01-02] MEDS ORDERED: Promethazine HCl 25 MG/ML VIAL IM PRN (17:42)
[2018-01-02] MEDS ORDERED: Promethazine HCl 25 MG/ML VIAL SLOW IVP PRN (17:42)
[2018-01-02] MEDS: Lactated Ringer's 1,000 ML IV SCH ×2 (20:49→21:08)
[2018-01-02 22:17] LABS: Hemoglobin 8.2 g/dL (14.0-18.0)
[2018-01-03] MEDS ORDERED: HumaLOG 300 UNITS/3 ML VIAL SC PRN (00:07)
[2018-01-03] MEDS: traZODone HCl 50 MG TAB PO PRN (00:21)
[2018-01-03] MEDS: Fentanyl 100 MCG/2 ML VIAL SLOW IVP PRN ×3 (02:01→06:35)
[2018-01-03] MEDS ORDERED: Diazepam 5 MG TAB PO PRN (04:00)
--- NOTE | 2018-01-03 04:44 | OP ---
DATE OF PROCEDURE: 01/02/2018 OPERATIVE PROCEDURE: Esophagogastroduodenoscopy with biopsy. PREOPERATIVE DIAGNOSIS: A 72-year-old male with history of GI bleeding with vomiting coffe e-ground material over the last 48 hours. The patient has no abdominal pain. The patient underwent esophagogastroduodenoscopy. POSTOPERATIVE DIAGNOSES: 1. Severe erosive esophagitis starting in the midesophagus all the way to the GE junction. 2. Small hiatus hernia. 3. Mild gastritis over the gastric antrum. There is no other pathology seen. PROCEDURE IN DETAIL: The patient was placed on his left lateral position and was given sedation by A nesthesia Department. A [employer] video gastroscope under direct vision was passed down the oropharynx, past the GE junction, into the stomach and subsequently into the descending duodenum. The upper thi rd of the esophagus appears normal. Starting from the mid esophagus all the way to the lower esophag us and GE junction. The patient reported diffuse confluent ulcerations. No bleeding seen. Biopsy o btained from the area. He has small hiatus hernia. Retroflexion failed to show any pathology in the fundus or cardia. The gastric body, no pathology seen. The gastric antrum shows focal edema and er ythema. The duodenal bulb and descending duodenum, no pathology seen. The stomach decompressed and the scope removed. RECOMMENDATIONS: 1. Diet as tolerated. 2. Continue IV Protonix. 3. Await the result of biopsy and make further recommendations.
[2018-01-03] MEDS: Lactated Ringer's 1,000 ML IV SCH ×3 (06:34→15:41)
[2018-01-03] MEDS: Vancomycin HCl 1.25 GM in Sodium Chloride 0.9% 250 ML 250 ML IVPB SCH (06:34)
[2018-01-03] MEDS: Nicotine 14 MG PATCH TD SCH (06:35)
[2018-01-03] MEDS: Budesonide 0.5 MG/2 ML NEB NEB SCH ×2 (07:37→18:54)
[2018-01-03 07:45] LABS: Vancomycin, Trough 42.2 ug/mL
--- NOTE | 2018-01-03 08:23 | PDOC.FM ---
- Subjective Subjective: Pt reports having a lot of pain. Says that recently he was on fentanyl patches due to the discitis. Denies any blood in stool. Denies any n/v/d/c. Denies any fever or chills. Denies any SOB or chest pain. No acute events overnight. Doing well. Nurse reports been giving him fentanyl every two hours and not working. - Objective MAR Reviewed: Yes Vital Signs & Weight: Vital Signs (12 hours) Temp Pulse Resp BP BP Pulse Ox 01/03/18 07:37 100 16 01/03/18 04:00 98.2 F 98 20 121/67 121/67 99 Weight Admit Weight 79.3 kg Weight 70.715 kg I&O: 01/02/18 01/03/18 01/04/18 06:59 06:59 06:59 Intake Total 1200 2501 Output Total 600 1500 Balance 600 1001 Result Diagrams: 01/02/18 22:08 01/02/18 01:37 EKG Reviewed by me: Yes Radiology Reviewed by me: Yes <Vinod Irvin - Last Filed: 01/03/18 08:21> - Objective Vital Signs & Weight: Vital Signs (12 hours) Temp Pulse Resp BP BP Pulse Ox 01/03/18 08:00 131/76 01/03/18 07:40 99.4 F 101 H 17 131/76 98 01/03/18 07:37 100 16 01/03/18 04:00 98.2 F 98 20 121/67 121/67 99 Weight Admit Weight 79.3 kg Weight 70.715 kg I&O: 01/02/18 01/03/18 01/04/18 06:59 06:59 06:59 Intake Total 1200 2501 Output Total 600 1500 Balance 600 1001 Result Diagrams: 01/03/18 07:00 01/02/18 01:37 <Lynsey Mann - Last Filed: 01/03/18 10:59> Phys Exam - Physical Examination Constitutional: NAD HEENT: PERRLA, moist MMs Neck: no nodes, supple, full ROM slight wheezing and some mild rales Cardiovascular: RRR, no significant murmur, no rub Gastrointestinal: soft, non-tender, no distention, positive bowel sounds Musculoskeletal: no edema, pulses present Neurological: non-focal, moves all 4 limbs Has some spinal tenderness in lower back Lymphatic: no nodes Psychiatric: normal affect, A&O x 3 Skin: no rash, normal turgor, cap refill <2 seconds <Vinod Irvin - Last Filed: 01/03/18 08:21> Dx/Plan (1) Symptomatic anemia Code(s): D64.9 - ANEMIA, UNSPECIFIED Status: Acute (2) Acute GI bleeding Code(s): K92.2 - GASTROINTESTINAL HEMORRHAGE, UNSPECIFIED Status: Resolved (3) Demand ischemia of myocardium Code(s): I24.8 - OTHER FORMS OF ACUTE ISCHEMIC HEART DISEASE Status: Acute (4) Discitis of lumbosacral region Code(s): M46.47 - DISCITIS, UNSPECIFIED, LUMBOSACRAL REGION Status: Acute (5) Hypomagnesemia Code(s): E83.42 - HYPOMAGNESEMIA Status: Acute (6) 3-vessel CAD Status: Chronic (7) Alcoholic cirrhosis of liver Code(s): K70.30 - ALCOHOLIC CIRRHOSIS OF LIVER WITHOUT ASCITES Status: Chronic Qualifiers: Ascites presence: without ascites Qualified Code(s): K70.30 - Alcoholic cirrhosis of liver without ascites (8) Aortic stenosis Code(s): I35.0 - NONRHEUMATIC AORTIC (VALVE) STENOSIS Status: Chronic (9) COPD (chronic obstructive pulmonary disease) Status: Chronic (10) HTN (hypertension) Code(s): I10 - ESSENTIAL (PRIMARY) HYPERTENSION Status: Chronic (11) DM type 2 (diabetes mellitus, type 2) Status: Chronic Qualifiers: Diabetes mellitus retirement insulin use: with relations specialist use Diabetes mellitus complication status: without complication Qualified Code(s): E11.9 - Type 2 diabetes mellitus without complications; Z79.4 - half-way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 (12) Lung nodule Code(s): R91.1 - SOLITARY PULMONARY NODULE Status: Acute - Plan Plan: Symptomatic anemia 2/2 severe esophageal gastritis -VSS, Hg dropped from 9.2 on admission to 8.2 this morning, but likely 2/2 dilution. Plan to transfuse for Hg </= 7 -Hgb stable this AM. Hemagram pending -continue Octreotide, Protonix -GI consulted-Ragupathi -EGD shows severe esophagitis and mild gastritis. Bx pending -continue to tx until biopsies Diskitis, Osteomyelitis with epidural abscess -Continue Vancomycin 1.25 mg BID while NPO. Will plan to switch to Rifampin and Minocycline today. -ID consulted- Meño -Fentanyl for pain. Will transisition to patch for now. Demand Ischemia -Elevated to 3.1, now downtrending to 2.9 most recently -Cardiology consulted- Follow recs Severe Aortic stenosis -CV surgery consulted from previous hospitalization pt deemed poor surgical candidate. Protein-Calorie Malnutrition -Albumin continues to be low 3.0 -consult manager regulatory and consider ensure once PO. Cirrhosis with portal hypertension -2/2 to alcohol abuse -MELD score 11 consistent with 6% 3-month mortality. Coronary Artery disease -3v disease on cath 07/2017- medically managed, poor surgical candidate per Cards -avoid ASA with current GI bleed and avoid anticoagulation -Cardiology consulted- continue to follow recs Diabetes mellitus -Continue home regimen of Metformin 250 mg QD, Lantus 80 units qam, Humalog 5 units BID. -SSI -A1c 5.9 pAfib -IV digoxin while NPO -telemetry monitoring -not on any anticoagulation per home med rec likely 2/2 hx of GI bleed. Not recommended by cardiology at this time Tobacco Abuse -Cessation education -TD nicotine Alcohol abuse -ASE protocol. Lung Nodule -Seen on CXR fom 01/01 (12 mm) -Seen on previous CXR (18 mm) and Chest CT from 07/2017. -Size appears stable, continue to monitor. COPD -continue home meds. No worsening SOB <Vinod Irvin - Last Filed: 01/03/18 08:21> Attending Addendum - Attending Addendum Date/Time: 01/03/18 1054 I personally evaluated the patient and discussed the management with Dr. Irvin I agree with the History, Examination, Assessment and Plan documented above with any addition or exceptions noted below- Patient feeling better with regards to the N/V. Complaining of back pain secondary to the discitis. Afebrile VSS. A/P: 1) Erosive esophagitis- findings from EGD noted and appreciate GI assistance. H/H stable; Continue PPI. 2) Discitis- transition back to po abx as he is now tolerating po. Started back on fentanyl patch that he was using at [facility] for pain control. <Lynsey Mann - Last Filed: 01/03/18 10:59>
[2018-01-03 08:36] LABS: Hemoglobin 7.9 g/dL (14.0-18.0); Mean Corpuscular HGB CONC 33.2 g/dL (32.0-36.0); Mean Corpuscular Hemoglobin 31.5 pg (27.0-31.0); Mean Corpuscular Volume 94.7 fL (78.0-98.0); Mean Platelet Volume 7.7 fL (7.4-10.4); Platelet Count 171 thou/uL (130-400); RBC Distribution Width 17.1 % (11.5-14.5); Red Blood Cell (RBC) Count 2.52 mill/uL (4.70-6.10); White Blood Cell (WBC) Count 4.9 thou/uL (4.8-10.8)
[2018-01-03] MEDS ORDERED: fentaNYL 100 mcg/hour Patch TD SCH (09:00)
[2018-01-03] MEDS ORDERED: Prevnar 13-Val Conj/PF 0.5 ML SYRINGE IM ONE (09:00)
[2018-01-03] MEDS: Pantoprazole 40 MG VIAL IVP SCH ×2 (09:40→20:05)
[2018-01-03] MEDS: Digoxin 0.125 MG TAB PO SCH (09:40)
[2018-01-03] MEDS: Magnesium Oxide 400 MG TAB PO SCH (09:40)
[2018-01-03] MEDS: Folic Acid 1 MG TAB PO SCH (09:40)
[2018-01-03] MEDS: Multivitamin W/ Minerals 1 TAB PO SCH (09:40)
--- NOTE | 2018-01-03 10:52 | PDOC.CTH ---
<Rekha Benitez - Last Filed: 01/03/18 12:46> Cardiology Progress Note - Subjective The pt seen and examined. No overnight events. No cardiac complaints. He cont. complaining of back pain. - Objective Vital Signs Temp Pulse Resp BP BP Pulse Ox 01/03/18 08:00 131/76 01/03/18 07:40 99.4 F 101 H 17 131/76 98 01/03/18 07:37 100 16 01/03/18 04:00 98.2 F 98 20 121/67 121/67 99 Admit Weight 174 lb 13.225 oz Weight 155 lb 14.4 oz 01/02/18 01/03/18 01/04/18 06:59 06:59 06:59 Intake Total 1200 2501 Output Total 600 1500 Balance 600 1001 - Physical Examination General/Neuro: alert & oriented x3 Neck: no JVD present Lungs: CTA Extremities: other: (ST 100-130s) - Labs Result Diagrams: 01/03/18 07:00 01/02/18 01:37 Troponin/CKMB CK-MB (CK-2) 13.2 ng/mL (0-6.6) H* 01/01/18 16:41 Troponin I 2.914 ng/mL (< 0.028) H* 01/02/18 01:37 - Assessment/Plan 1. Upper GI Bleeding 2/2 severe erosive esophagitis in mid-esophagus all the way to the GE junction - stable, managed by GI service. 2. Severe 3V CAD - cont. Medical management only. He was told he was not good candidate for any cardiac sx. 3. Hx of liver dysfunction - 4. Anemia - Stable 5. DM type 2 - managed by PCP 6. Hx of Cirrhosis - stable 7. Lung Nodule from 07/2017 - stable 8. Tobacco Abuse - Smoking cessation education given to the pt. 9. Tachycardia - HR has been 100-130s. Start Coreg 3.125mg BID. MAR reviewed Review of Systems - Review of Systems Constitutional: reports: no symptoms reported EENTM: reports: no symptoms reported Respiratory: reports: no symptoms reported Cardiac (ROS): reports: no symptoms reported ABD/GI: reports: no symptoms reported : reports: no symptoms reported Musculoskeletal: reports: see HPI <Sherie Amin - Last Filed: 01/03/18 14:23> Cardiology Progress Note - Objective Vital Signs Temp Pulse Resp BP BP Pulse Ox 01/03/18 11:40 99.5 F 107 H 15 132/75 95 01/03/18 08:00 131/76 98 01/03/18 07:40 99.4 F 101 H 17 131/76 98 01/03/18 07:37 100 16 01/03/18 04:00 98.2 F 98 20 121/67 121/67 99 Admit Weight 174 lb 13.225 oz Weight 155 lb 14.4 oz 01/02/18 01/03/18 01/04/18 06:59 06:59 06:59 Intake Total 1200 2501 Output Total 600 1500 Balance 600 1001 - Labs Result Diagrams: 01/03/18 07:00 01/02/18 01:37 Troponin/CKMB CK-MB (CK-2) 13.2 ng/mL (0-6.6) H* 01/01/18 16:41 Troponin I 2.914 ng/mL (< 0.028) H* 01/02/18 01:37 - Assessment/Plan Pt. seen and eval. by me. I agree with the A/P by the BOTTOM CAGER. 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
[2018-01-03] MEDS: HumaLOG 300 UNITS/3 ML VIAL SC PRN (11:42)
[2018-01-03] MEDS ORDERED: Carvedilol 3.125 MG TAB PO SCH (13:00)
[2018-01-03] MEDS: Ondansetron HCl/PF 4 MG/2 ML Vial IVP PRN (15:41)
[2018-01-03] MEDS: Carvedilol 3.125 MG TAB PO SCH (17:28)
--- NOTE | 2018-01-03 20:00 | CON ---
DATE OF CONSULTATION: 01/03/2018 REASON FOR CONSULTATION: Question regarding the followup treatment for his previously diagnosed spin al infection. HISTORY OF PRESENT ILLNESS: A 72-year-old patient known to me from previous evaluation earlier this year, specifically in September I saw this patient with a history of coronary disease, type 2 diabetes, an d liver cirrhosis secondary to alcoholism. At that time, he was admitted with a non-ST elevation iram cardial infarction and he also had a left upper lung cavitary lesion. The patient was discharged on aspirin, Coreg, insulin, gabapentin. Subsequently developed pain in the right foot. He also had hardy dence of wedge shaped opacities in the spleen on the CT scan and 2 positive sets of blood cultures fo r MRSA. After workup was completed, the patient was identified with methicillin-resistant Staphyloco ccus aureus bacteremia with likely cavitary lung lesions from methicillin-resistant Staphylococcus au reus infection. Also, splenic lesions, probably from endocarditis and he also had lumbosacral spine and C-spine infection which was managed conservatively after Neurosurgery input. The patient receive d protracted IV antimicrobial therapy with vancomycin which was continued until 12/11/2017. After th at he was transitioned to oral rifampin and minocycline. Now, he is admitted with worsening nausea a nd vomiting, weakness, dizziness, some epigastric and abdominal pain associated with it. No diarrhea . No headaches. The neck pain has improved markedly, he still has moderate lower back pain. Still drinking daily. Also taking NSAIDs for back pain control. PAST MEDICAL HISTORY: Hypertension, coronary artery disease, type 2 diabetes, liver cirrhosis second iza to alcoholism, upper GI bleed, methicillin-resistant Staphylococcus aureus bacteremia with pneumo ondina and spinal infection with C-spine and lumbosacral spine involvement with epidural abscess managed conservatively with 2 months of IV vancomycin and then subsequent transition to oral minocycline and rifampin. PAST SURGICAL HISTORY: Partial foot amputations, cholecystectomy. FAMILY HISTORY: Diabetes type 2. SOCIAL HISTORY: Current smoker and current ETOH user. ALLERGIES: Negative. PHYSICAL EXAMINATION: VITAL SIGNS: T-max 99.6, blood pressure 130/70, pulse 107, respirations 15, O2 sat 95%. SKIN: The patient has a swollen fourth toe with an ulcerated area where the nail bed is located with onycholysis and this is more like a hyperkeratotic lesion which is chronic. No erythema noted in th e toe. The patient has a peripheral IV access and is voiding in the urinal, no lymphadenopathy. HEENT: Ocular movements conjugate. Oral cavity with numerous missing teeth. NECK: Supple. LUNGS: With symmetric air entry. No neck tenderness. HEART: S1, S2 with a soft aortic murmur. Regular rate. ABDOMEN: Soft, not distended or tender. No bladder distention, no ascites. EXTREMITIES: No joint inflammatory activity. Pulses 1+ in dorsalis pedis. NEUROLOGIC: Plantar responses are flexure. He is able to move extremities equally. He is feeling d lico at the time of the examination, oriented, follows commands. LABORATORY DATA: White cell count of 6.1 and now 4.9, hemoglobin is 7.9, platelets 207. INR 1.5. S odium 136, creatinine 0.96, glucose 189, calcium 7.7, AST 59. Other transaminases and bilirubin and alkaline phosphatase normal. Troponin 3.1 and 2.9, albumin 3.0. Urinalysis 0-3 WBCs. Toxicology wa s negative. Vancomycin trough 42.2. The patient had EGD which showed erosive esophagitis pending bi opsy results. The last C-spine MRI done in mid-November showed improvement of inflammatory changes and the lumbar spine showed some progression of the areas of osteolysis in the endplates region of the l umbar spine. There is a little bit worsening of the soft tissues phlegmonous changes in the lumbar s pine anteriorly, but this was a limited examination due to lack of contrast. ASSESSMENT: Type 2 diabetes, coronary artery disease, and recent methicillin-resistant Staphylococcu s aureus infection with extensive spinal involvement, treated conservatively for 2 months. Now, elizabeth ent has developed erosive esophagitis associated with the minocycline or the rifampin and/or the NSAI D use. Still has quite a bit of lower back pain. I would at this point discontinue antimicrobial th erapy, intravenously discontinue vancomycin. Monitor blood cultures and a repeat C-reactive protein if not done yet and consider repeating the MRI of the C-spine and the lumbosacral spine whenever stab ilizes. He seems to have a non-ST elevation myocardial infarction again. If the MRI showed further improvement, then I would discontinue oral antimicrobial therapy.
[2018-01-03] MEDS: Gabapentin 300 MG CAP PO SCH (20:05)
[2018-01-03] MEDS ORDERED: Non-Formulary Item 1 EACH (Insulin Glargine,Hum.Rec.Anlog [Lantus Solostar] 40 UNIT) SQ SCH (21:00)
[2018-01-03] MEDS ORDERED: Insulin Glargine 40 UNITS in Pre-Filled Syringe 1 EACH SC SCH (21:00)
[2018-01-03] MEDS ORDERED: Rifampin 300 MG CAP PO SCH (22:00)
--- NOTE | 2018-01-04 00:31 | PDOC.EVN ---
Event Note - Event Note Event Note: Pt recieved 2mg Ativan per ASE protocol at 1999 on 01/03, pt became lethargic and apneic with RR 2-4/min with O2 sats in the 70s on RA. Pt put on 3L O2 and then evaluated by FMR. On arrival pt was satting 100% on 3L with RR of 2-4/min and otherwise normal vitals. Pt minimally responsive to painful stimuli. Flumazenil 0.2mg IV was administered and pt observed for 1min. Within 1 min pt had return of baseline mental status with RR wnl. -will continue to monitor respiratory status -D/C all benzos
[2018-01-04] MEDS ORDERED: Naloxone HCl 0.4 mg/ml Vial ONE (04:31)
[2018-01-04] MEDS: Naloxone HCl 0.4 mg/ml Vial IVP PRN ×2 (04:51→08:06)
--- NOTE | 2018-01-04 05:08 | PDOC.EVN ---
Event Note - Event Note Event Note: Patient re-evaluated @ 0420. He is apneic with a respiratory rate of 4/min. He is somnolent, but arousable to stimulation. Satting @ 100% on room 3L. The decision was made to remove patient's Fentanyl patch. An additional 0.2 mg of Flumazenil was adminstered along with 0.2 mg of Narcan. Pt easily became more alert and was observed for a period of approximately 5 minutes. Vitals remained stable. Will continue to monitor patient and have Flumazenil and Narcan available at the bedside for repeat administrations as necessary.
[2018-01-04] MEDS: Nicotine 14 MG PATCH TD SCH (05:51)
[2018-01-04] MEDS: Levothyroxine 175 MCG TAB PO SCH (05:51)
--- NOTE | 2018-01-04 06:06 | PDOC.FM ---
- Subjective Subjective: CC: confused HPI: Patient appeared confused this morning. Was argumentative with nursing staff. Overnight became difficult to arouse after receiving ativan for agitation per ASE protocol. He responded well to reversal agents. - Objective MAR Reviewed: Yes Vital Signs & Weight: Vital Signs (12 hours) Temp Pulse Resp BP BP BP Pulse Ox 01/04/18 04:07 127/90 01/04/18 03:15 96.1 F L 85 14 127/90 95 01/04/18 00:01 135/79 01/03/18 23:37 97 F L 96 16 135/79 100 01/03/18 20:11 96 01/03/18 19:56 98.6 F 118 H 16 167/88 H 167/88 H 96 01/03/18 18:56 93 L 01/03/18 18:54 93 L Weight Admit Weight 79.3 kg Weight 72.257 kg I&O: 01/02/18 01/03/18 01/04/18 06:59 06:59 06:59 Intake Total 1200 2701 Output Total 600 1999 Balance 600 701 Result Diagrams: 01/03/18 07:00 01/02/18 01:37 EKG Reviewed by me: Yes <Everette Holliday W - Last Filed: 01/04/18 06:53> - Objective Vital Signs & Weight: Vital Signs (12 hours) Temp Pulse Resp BP BP BP Pulse Ox 01/04/18 09:29 81 01/04/18 07:45 81 16 151/86 H 92 L 01/04/18 07:10 96.2 F L 101 H 18 170/81 H 92 L 01/04/18 04:07 127/90 01/04/18 03:15 96.1 F L 85 14 127/90 95 01/04/18 00:01 135/79 01/03/18 23:37 97 F L 96 16 135/79 100 Weight Admit Weight 79.3 kg Weight 72.257 kg I&O: 01/03/18 01/04/18 01/05/18 06:59 06:59 06:59 Intake Total 2701 Output Total 2000 Balance 701 Result Diagrams: 01/03/18 07:00 01/02/18 01:37 <Brooks Agarwal R - Last Filed: 01/04/18 10:24> Phys Exam - Physical Examination Constitutional: NAD HEENT: moist MMs, sclera anicteric Neck: no nodes, no JVD Respiratory: no wheezing, clear to auscultation bilateral Cardiovascular: no significant murmur normal rate, irregularly irregular. Neurological: non-focal, moves all 4 limbs Deviation from normal: confused. oriented to person and place. Skin: no rash <Everette Holliday - Last Filed: 01/04/18 06:53> Dx/Plan (1) Symptomatic anemia Code(s): D64.9 - ANEMIA, UNSPECIFIED Status: Acute (2) Anemia due to acute blood loss Code(s): D62 - ACUTE POSTHEMORRHAGIC ANEMIA Status: Acute (3) Atrial fibrillation with rapid ventricular response Code(s): I48.91 - UNSPECIFIED ATRIAL FIBRILLATION Status: Acute (4) Discitis of cervical region Code(s): M46.42 - DISCITIS, UNSPECIFIED, CERVICAL REGION Status: Acute (5) Discitis of lumbosacral region Code(s): M46.47 - DISCITIS, UNSPECIFIED, LUMBOSACRAL REGION Status: Acute - Plan Plan: Acute Hypoxic Respiratory Distress - likely 2/2 benzos and fentanly patch. Improved with narcan and flumazenil. - hold fentanyl and benzos today. Symptomatic anemia 2/2 severe esophageal gastritis -VSS, Hg dropped from 9.2 on admission to 7.9 this morning, but likely 2/2 dilution. Plan to transfuse for Hg </= 7 -continue Protonix -GI consulted-Ragupathi -EGD shows severe esophagitis and mild gastritis. Bx pending -continue to tx until biopsies Diskitis, Osteomyelitis with epidural abscess - Continue Vancomycin 1.25 mg BID while NPO. monitor trough - Repeat CRP today - Will discuss repeat MRI today as recommended by ID. ID states PO abx can be d/ c if MRI shows improvement. Demand Ischemia -Elevated to 3.1, now downtrending to 2.9 most recently -Cardiology consulted- Follow recs Coronary Artery disease -3v disease on cath 07/2017- medically managed, poor surgical candidate per Cards -avoid ASA with current GI bleed and avoid anticoagulation -Cardiology consulted- continue to follow recs <Everette Holliday - Last Filed: 01/04/18 06:53> Attending Addendum - Attending Addendum Date/Time: 01/04/18 1022 I personally evaluated the patient and discussed the management with Dr. Holliday. I agree with the History, Examination, Assessment and Plan documented above with any addition or exceptions noted below. Patient stable this morning. He had episode overnight of hypopnea due to ativan that was given as part of ASE protocol. He is now s/p Flumazenil and Narcan and mentating well. He denies pain at this time. Still somewhat altered which may be a component of delirium. Will monitor closely through the day. May have to try non narcotic pain control until the Narcan is out of his system, and will avoid benzos that are part of ASE protocol. Hgb stable. Continue to monitor. If his mentation improves, consider repeat MRI per Meño recommendations. CRP pending. <Brooks Agarwal - Last Filed: 01/04/18 10:24>
[2018-01-04] MEDS: Budesonide 0.5 MG/2 ML NEB NEB SCH ×2 (06:35→18:56)
[2018-01-04] MEDS ORDERED: HumaLOG 300 UNITS/3 ML VIAL SC SCH ×2 (07:30→11:30)
--- NOTE | 2018-01-04 08:17 | PDOC.EVN ---
Event Note - Event Note Event Note: Residents paged to the bedside because patient was found crawling in the hallway. Nurses noted a possible bruise on his forehead raising concern for a fall. Upon our arrival to bedside, pt was in bed and nurses had restraints placed. Pt was somnolent and arousable to sternal rub. He was hypopneic with respiratory rate of 6. The decision was made to administer another 0.2 mg of Narcan. Pt alert, but confused. Pt may require additional monitoring, and additional Narcann throughout the day. Will consider possible transfer to [facility].
[2018-01-04] MEDS ORDERED: Insulin Glargine 80 UNITS in Pre-Filled Syringe 1 EACH SC SCH (09:00)
[2018-01-04] MEDS ORDERED: INSULIN GLARGINE HUM REC ANLOG 80 UNIT SQ SCH (09:00)
[2018-01-04] MEDS: Pantoprazole 40 MG VIAL IVP SCH ×2 (09:08→20:39)
[2018-01-04] MEDS: Gabapentin 300 MG CAP PO SCH ×3 (09:17→20:42)
[2018-01-04] MEDS: Digoxin 0.125 MG TAB PO SCH (09:29)
[2018-01-04] MEDS: Amiodarone 200 MG TAB PO SCH (09:32)
[2018-01-04] MEDS: Carvedilol 3.125 MG TAB PO SCH ×2 (09:32→17:55)
[2018-01-04] MEDS: DULoxetine 30 MG CAP PO SCH (09:35)
[2018-01-04] MEDS: Magnesium Oxide 400 MG TAB PO SCH (09:37)
[2018-01-04] MEDS: Lactinex Tablet PO SCH (09:37)
[2018-01-04] MEDS: Multivitamin W/ Minerals 1 TAB PO SCH (09:38)
[2018-01-04] MEDS: Ferrous Sulfate 325 MG TAB PO SCH (09:39)
[2018-01-04] MEDS: Folic Acid 1 MG TAB PO SCH (09:41)
[2018-01-04] MEDS: metFORMIN 500 MG TAB PO SCH (09:43)
[2018-01-04] MEDS: HumaLOG 300 UNITS/3 ML VIAL SC PRN ×2 (09:47→11:48)
[2018-01-04] MEDS: Ondansetron HCl/PF 4 MG/2 ML Vial IVP PRN (10:50)
[2018-01-04] MEDS: Dextrose 50% Abboject 50 ML SYRINGE SLOW IVP PRN ×2 (15:37→15:39)
--- NOTE | 2018-01-04 16:33 | CT ---
CT BRAIN WITHOUT CONTRAST: 01/04/18 HISTORY: Altered mental status. COMPARISON: None. FINDINGS: No acute territorial infarct or hemorrhage. Old left lacunar infarcts. There is hypodensity in the le ft morales radiata. No midline shift or mass effect. The paranasal sinuses and mastoids are clear. The calvarium is intac t. Globes are intact. IMPRESSION: No acute intracranial abnormality. POS: BENJAMIN
--- NOTE | 2018-01-04 16:49 | PDOC.EVN ---
Event Note - Event Note Event Note: CODE [facility] called [id number]. Residents responded. Patient was found unresponsive by nursing staff with a blood glucose of 12. Patient had been responsive to nursing staff approximately 1 hr prior. Provider ordered 2 amps of D50 IVP and glucagon IM. On initial exam, patient was unresponsive to painful stimuli and had cold skin and was profusely sweating. Patient became responsive to painful stimuli withing 2-3 minutes of administration. A stat CT Brain was ordered since the patient experienced an unwitnessed fall earlier to day. Prior to leaving for CT, patient's blood glucose was 350. Provider also ordered patient to be transferred to [facility] since this was his second episode of AMS in 12 hours. Review of chart revealed he received lantus 80 units, Humalog 5 units at breakfast and lunch, and 6 units of SSI this morning. I re-evaluated the patient in the IMCU after he arrived back from CT. He was arousalble to verbal stimuli and was A&O to person and time but remained disoriented to location even after informing him he was in the hospital. Repeat blood glucoses in the IMCU were approximately 200 and 180. Will hold PM insulin and recheck finger stick glucose in 1 hour. Will start D10W drip if glucose drops below 100. History, physical, lab, imaging, and plan were discussed with Dr. Agarwal who was in agreement.
[2018-01-04 17:42] LABS: Anion Gap 11 mmol/L (10-20); BUN (Urea Nitrogen) 11 mg/dL (8.4-25.7); Calc. Creatinine Clearance 68 mL/min (70-130); Calcium 7.9 mg/dL (7.8-10.44); Carbon Dioxide 30 mmol/L (23-31); Chloride 99 mmol/L (98-107); Estimated GFR-MDRD 73; Glucose 125 mg/dL (83-110); Sodium 137 mmol/L (136-145)
[2018-01-04] MEDS: traMADol HCl 50 MG TAB PO PRN (17:55)
[2018-01-04 17:59] LABS: Potassium 2.8 mmol/L (3.5-5.1)
[2018-01-04] MEDS ORDERED: Potassium Chloride 20 MEQ TAB PO SCH (18:15)
[2018-01-04] MEDS ORDERED: Lactated Ringer's 500 ML IV SCH (21:00)
[2018-01-05 05:02] LABS: Anion Gap 13 mmol/L (10-20); BUN (Urea Nitrogen) 15 mg/dL (8.4-25.7); Calc. Creatinine Clearance 57 mL/min (70-130); Calcium 7.2 mg/dL (7.8-10.44); Carbon Dioxide 26 mmol/L (23-31); Chloride 100 mmol/L (98-107); Estimated GFR-MDRD 60; Glucose 300 mg/dL (83-110); Potassium 3.5 mmol/L (3.5-5.1); Sodium 135 mmol/L (136-145)
--- NOTE | 2018-01-05 06:08 | PDOC.FM ---
- Subjective Subjective: CC: Hungry HPI: patient states he feels better. Nursing staff states he ate a lot of crackers overnight. Only concern was low BP. Patient was partially aware of events yesterday and remembers feeling sick. - Objective MAR Reviewed: Yes Vital Signs & Weight: Vital Signs (12 hours) Temp Pulse Resp BP Pulse Ox 01/05/18 04:00 98.4 F 84 18 99/50 L 98 01/05/18 00:30 101/54 L 01/05/18 00:10 98 F 69 10 L 100/56 L 96 01/04/18 23:30 95/51 L 01/04/18 22:30 94/49 L 01/04/18 21:30 92/58 L 01/04/18 21:00 92/47 L 01/04/18 20:30 92/59 L 01/04/18 20:15 90/66 01/04/18 20:00 100 01/04/18 19:40 96.0 F L 64 16 80/48 L 100 01/04/18 18:58 100 01/04/18 18:56 100 Weight Admit Weight 79.3 kg Weight 73.936 kg I&O: 01/03/18 01/04/18 01/05/18 06:59 06:59 06:59 Intake Total 2701 Output Total 2000 Balance 701 Result Diagrams: 01/03/18 07:00 01/05/18 03:55 <Everette Holliday W - Last Filed: 01/05/18 07:10> - Objective Vital Signs & Weight: Vital Signs (12 hours) Temp Pulse Resp BP Pulse Ox 01/05/18 09:11 76 01/05/18 07:41 98.5 F 76 16 113/54 L 98 01/05/18 07:24 99 01/05/18 07:22 66 15 99 01/05/18 04:00 98.4 F 84 18 99/50 L 98 01/05/18 00:30 101/54 L 01/05/18 00:10 98 F 69 10 L 100/56 L 96 01/04/18 23:30 95/51 L 01/04/18 22:30 94/49 L Weight Admit Weight 79.3 kg Weight 73.936 kg I&O: 01/04/18 01/05/18 01/06/18 06:59 06:59 06:59 Intake Total 2701 1900 Output Total 1999 Balance 701 1900 Result Diagrams: 01/03/18 07:00 01/05/18 03:55 <Brooks Agarwal - Last Filed: 01/05/18 10:06> Phys Exam - Physical Examination Constitutional: NAD HEENT: moist MMs, sclera anicteric Neck: no nodes, no JVD Respiratory: no wheezing, clear to auscultation bilateral Cardiovascular: RRR, no significant murmur Gastrointestinal: soft, non-tender, no distention Musculoskeletal: no edema Neurological: non-focal, moves all 4 limbs Psychiatric: normal affect, A&O x 3 Skin: no rash, cap refill <2 seconds <Everette Holliday - Last Filed: 01/05/18 07:10> Dx/Plan (1) Symptomatic anemia Code(s): D64.9 - ANEMIA, UNSPECIFIED Status: Acute (2) Anemia due to acute blood loss Code(s): D62 - ACUTE POSTHEMORRHAGIC ANEMIA Status: Acute (3) Atrial fibrillation with rapid ventricular response Code(s): I48.91 - UNSPECIFIED ATRIAL FIBRILLATION Status: Acute (4) Discitis of cervical region Code(s): M46.42 - DISCITIS, UNSPECIFIED, CERVICAL REGION Status: Acute (5) Discitis of lumbosacral region Code(s): M46.47 - DISCITIS, UNSPECIFIED, LUMBOSACRAL REGION Status: Acute - Plan Plan: Acute Hypoxic Respiratory Distress - Patient had second episode of AMS yesterday due to severe hypoglycemia - recovered well and is back to baseline - holding all insulin today. Will monitor blood glucose today and consider restarting insulin tomorrow at lower dose. Symptomatic anemia 2/2 severe esophageal gastritis -VSS, Hg dropped from 9.2 on admission to 7.9 this morning, but likely 2/2 dilution. Plan to transfuse for Hg </= 7 -continue Protonix -GI consulted-Ragupathi -EGD shows severe esophagitis and mild gastritis. Bx pending -continue to tx until biopsies Diskitis, Osteomyelitis with epidural abscess - ID recommended d/c of abx therapy since patient has been treated for 2 months. - CRP unchanged. - will attempt MRI of cervical spine and lumbar spine on Saturday or Saturday. Demand Ischemia -Cardiology consulted- Follow recs Coronary Artery disease -3v disease on cath 07/2017- medically managed, poor surgical candidate per Cards -avoid ASA with current GI bleed and avoid anticoagulation -Cardiology consulted- continue to follow recs <Everette Holliday - Last Filed: 01/05/18 07:10> Attending Addendum - Attending Addendum Date/Time: 01/05/18 1005 I personally evaluated the patient and discussed the management with Dr. Holliday. I agree with the History, Examination, Assessment and Plan documented above with any addition or exceptions noted below. Patient doing well this morning. BP improved today. He is beginning to have pain again that I would expect since we removed his Fentanyl patch and he received Narcan. Will re-introduce opioid pain control today and titrate as necessary. Monitor respiratory status but do not anticipate issues as we are avoiding benzos. Will transfer from [facility] today. MRI tomorrow hopefully to further assess the status of his spinal osteomyelitis per ID recs. <Brooks Agarwal - Last Filed: 01/05/18 10:06>
[2018-01-05] MEDS: Levothyroxine 175 MCG TAB PO SCH (06:21)
[2018-01-05] MEDS: Nicotine 14 MG PATCH TD SCH (06:23)
[2018-01-05] MEDS: Budesonide 0.5 MG/2 ML NEB NEB SCH ×2 (07:22→18:37)
[2018-01-05] MEDS ORDERED: Potassium Chloride 20 MEQ TAB PO SCH (08:00)
[2018-01-05] MEDS: fentaNYL 50 mcg/hour Patch TD SCH (09:07)
[2018-01-05] MEDS: DULoxetine 30 MG CAP PO SCH (09:10)
[2018-01-05] MEDS: Magnesium Oxide 400 MG TAB PO SCH (09:11)
[2018-01-05] MEDS: Folic Acid 1 MG TAB PO SCH (09:11)
[2018-01-05] MEDS: Lactinex Tablet PO SCH (09:11)
[2018-01-05] MEDS: Amiodarone 200 MG TAB PO SCH (09:11)
[2018-01-05] MEDS: Multivitamin W/ Minerals 1 TAB PO SCH (09:11)
[2018-01-05] MEDS: metFORMIN 500 MG TAB PO SCH (09:11)
[2018-01-05] MEDS: Carvedilol 3.125 MG TAB PO SCH ×2 (09:11→17:05)
[2018-01-05] MEDS: Digoxin 0.125 MG TAB PO SCH (09:11)
[2018-01-05] MEDS: Gabapentin 300 MG CAP PO SCH ×2 (09:12→20:30)
[2018-01-05] MEDS: Pantoprazole 40 MG VIAL IVP SCH ×2 (09:12→20:30)
[2018-01-05] MEDS: Ferrous Sulfate 325 MG TAB PO SCH (09:12)
[2018-01-05] MEDS: Ondansetron HCl/PF 4 MG/2 ML Vial IVP PRN (09:20)
[2018-01-06] MEDS: Nicotine 14 MG PATCH TD SCH (06:26)
[2018-01-06] MEDS: Levothyroxine 175 MCG TAB PO SCH (06:27)
[2018-01-06] MEDS: Budesonide 0.5 MG/2 ML NEB NEB SCH ×2 (06:41→18:47)
[2018-01-06] MEDS ORDERED: Gadobenate Dimeglumine 529 MG/1 ML (20ML VIAL) ONE (08:36)
--- NOTE | 2018-01-06 09:05 | PDOC.FM ---
- Subjective Subjective: A&Ox3. Pt reports feeling much better. Denies any acute events overnight. Denies any chest pain or SOB. Denies any lightheadness or dizziness. Reports pain being well controlled at this time. Pt wondering if he can get out of bed. Pt has strict precautions due to recent fall. I think much improved and not altered. No other concerns or questions at this time. - Objective Vital Signs & Weight: Vital Signs (12 hours) Temp Pulse Resp BP Pulse Ox 01/06/18 06:47 99.3 F 86 18 133/71 91 L 01/06/18 06:44 90 L 01/06/18 06:41 75 16 90 L 01/06/18 03:56 98.6 F 81 18 146/60 H 92 L Weight Admit Weight 79.3 kg Weight 74.933 kg I&O: 01/05/18 01/06/18 01/07/18 06:59 06:59 06:59 Intake Total 1900 1522 Output Total 200 Balance 1900 1322 Result Diagrams: 01/03/18 07:00 01/05/18 03:55 EKG Reviewed by me: Yes Radiology Reviewed by me: Yes <Vinod Irvin - Last Filed: 01/06/18 09:08> - Objective Vital Signs & Weight: Vital Signs (12 hours) Temp Pulse Resp BP Pulse Ox 01/06/18 09:43 86 01/06/18 06:47 99.3 F 86 18 133/71 91 L 01/06/18 06:44 90 L 01/06/18 06:41 75 16 90 L 01/06/18 03:56 98.6 F 81 18 146/60 H 92 L Weight Admit Weight 79.3 kg Weight 74.933 kg I&O: 01/05/18 01/06/18 01/07/18 06:59 06:59 06:59 Intake Total 1900 1522 Output Total 200 Balance 1900 1322 Result Diagrams: 01/06/18 09:05 01/05/18 03:55 <Dewayne Alfaro - Last Filed: 01/06/18 10:54> Phys Exam - Physical Examination Constitutional: NAD HEENT: PERRLA, moist MMs Neck: no nodes, supple, full ROM Respiratory: no wheezing, no rales, no rhonchi, clear to auscultation bilateral Cardiovascular: RRR, no significant murmur Gastrointestinal: soft, non-tender, no distention, positive bowel sounds Musculoskeletal: no edema, pulses present Neurological: non-focal, normal sensation, moves all 4 limbs Lymphatic: no nodes Psychiatric: normal affect, A&O x 3 Skin: no rash, normal turgor <Vinod Irvin - Last Filed: 01/06/18 09:08> Dx/Plan (1) Symptomatic anemia Code(s): D64.9 - ANEMIA, UNSPECIFIED Status: Acute (2) Acute GI bleeding Code(s): K92.2 - GASTROINTESTINAL HEMORRHAGE, UNSPECIFIED Status: Resolved (3) Demand ischemia of myocardium Code(s): I24.8 - OTHER FORMS OF ACUTE ISCHEMIC HEART DISEASE Status: Acute (4) Discitis of lumbosacral region Code(s): M46.47 - DISCITIS, UNSPECIFIED, LUMBOSACRAL REGION Status: Acute (5) Hypomagnesemia Code(s): E83.42 - HYPOMAGNESEMIA Status: Acute (6) 3-vessel CAD Status: Chronic (7) DM type 2 (diabetes mellitus, type 2) Status: Chronic 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 Diabetes mellitus complication status: without complication Qualified Code(s): E11.9 - Type 2 diabetes mellitus without complications; 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 (8) Alcoholic cirrhosis of liver Code(s): K70.30 - ALCOHOLIC CIRRHOSIS OF LIVER WITHOUT ASCITES Status: Chronic Qualifiers: Ascites presence: without ascites Qualified Code(s): K70.30 - Alcoholic cirrhosis of liver without ascites (9) Aortic stenosis Code(s): I35.0 - NONRHEUMATIC AORTIC (VALVE) STENOSIS Status: Chronic (10) COPD (chronic obstructive pulmonary disease) Status: Chronic (11) HTN (hypertension) Code(s): I10 - ESSENTIAL (PRIMARY) HYPERTENSION Status: Chronic (12) Lung nodule Code(s): R91.1 - SOLITARY PULMONARY NODULE Status: Chronic - Plan Plan: Symptomatic anemia 2/2 severe esophageal gastritis -VSS, Hg 7.9 at last check. has stabilized. Will repeat cbc today. Plan to transfuse for Hg </= 7 -continue Protonix -GI consulted-Ragupathi -EGD shows severe esophagitis and mild gastritis. Bx pending -continue to tx until biopsies Diskitis, Osteomyelitis with epidural abscess - ID consulted- Dr. Wilder- recommended d/c of abx therapy since patient has been treated for 2 months and possible causes of erosive esophagitis. - CRP unchanged. - Ordred MRI of cervical and lumbosacral area per recs of ID. Pt still having pain in that area. Demand Ischemia -Cardiology consulted- Follow recs -Nothing they can do at this time due to bleed. Acute Hypoxic Resp Distress (Resolved) -Had second episode of AMS a few days ago due to hypoglycemia Pt back to baseline. Coronary Artery disease -3v disease on cath 07/2017- medically managed, poor surgical candidate per Cards -avoid ASA with current GI bleed and avoid anticoagulation -Cardiology consulted- continue to follow recs Diabetes mellitus -Home regimen stopped due to severe hypoglycemia a few days ago. Sugars low today. Will continue to hold off on any insulin at this time. Continue metformin. -Pt diet likely differs at home compared to when in hospital. Likely reason he dropped so low on home insulin regimen when started Saturday. pAfib -telemetry monitoring -not on any anticoagulation per home med rec likely 2/2 hx of GI bleed. Not recommended by cardiology at this time -Digoxing and amiodorone. Continue at this time -Cardiology consulted- follow recs HTN -BP stable. Not on any meds at this time. No need to continue at this time Tobacco Abuse -Cessation education -TD nicotine Alcohol abuse -ASE protocol. Lung Nodule -Seen on CXR fom 01/01 (12 mm) -Seen on previous CXR (18 mm) and Chest CT from 07/2017. -Size appears stable, continue to monitor. COPD -continue home meds. No worsening SOB <Vinod Irvin - Last Filed: 01/06/18 09:08> Attending Addendum - Attending Addendum Date/Time: 01/06/18 1051 I personally evaluated the patient and discussed the management with Dr. Irvin I agree with the History, Examination, Assessment and Plan documented above with any addition or exceptions noted below. 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 Blood sugar improved, pain controlled with fentany for MRI imaging spine regard treatment staus epidural abscess and diskitis. Appreciate pricing consultant recs. <Dewayne Alfaro - Last Filed: 01/06/18 10:54>
[2018-01-06 09:13] LABS: #Eosinphils 0.1 thou/uL (0.0-0.7); #Monocytes 0.4 thou/uL (0.11-0.59); #Neutrophils 2.1 thou/uL (1.40-6.50); %Basophils 0.5 % (0.0-1.0); %Eosinophils 2.5 % (0.0-10.0); %Lymphocytes 27.9 % (21.0-51.0); %Monocytes 10.3 % (0.0-10.0); %Neutrophils 58.8 % (42.0-75.0); Hemoglobin 7.3 g/dL (14.0-18.0); Mean Corpuscular HGB CONC 31.8 g/dL (32.0-36.0); Mean Corpuscular Hemoglobin 30.6 pg (27.0-31.0); Mean Corpuscular Volume 96.4 fL (78.0-98.0); Mean Platelet Volume 7.5 fL (7.4-10.4); Platelet Count 128 thou/uL (130-400); RBC Distribution Width 17.1 % (11.5-14.5); White Blood Cell (WBC) Count 3.6 thou/uL (4.8-10.8)
[2018-01-06] MEDS: Digoxin 0.125 MG TAB PO SCH (09:43)
[2018-01-06] MEDS: Amiodarone 200 MG TAB PO SCH (09:43)
[2018-01-06] MEDS: Carvedilol 3.125 MG TAB PO SCH ×2 (09:43→18:23)
[2018-01-06] MEDS: metFORMIN 500 MG TAB PO SCH (09:43)
[2018-01-06] MEDS: Ferrous Sulfate 325 MG TAB PO SCH (09:43)
[2018-01-06] MEDS: traMADol HCl 50 MG TAB PO PRN (09:44)
[2018-01-06] MEDS: Folic Acid 1 MG TAB PO SCH (09:44)
[2018-01-06] MEDS: Multivitamin W/ Minerals 1 TAB PO SCH (09:44)
[2018-01-06] MEDS: Gabapentin 300 MG CAP PO SCH ×2 (09:44→21:56)
[2018-01-06] MEDS: Magnesium Oxide 400 MG TAB PO SCH (09:44)
[2018-01-06] MEDS: DULoxetine 30 MG CAP PO SCH (09:44)
[2018-01-06] MEDS: Lactinex Tablet PO SCH (09:49)
[2018-01-06] MEDS ORDERED: Lorazepam 2 MG/ML VIAL SLOW IVP PRN (11:19)
[2018-01-06] MEDS: Pantoprazole 40 MG VIAL IVP SCH (11:37)
[2018-01-06] MEDS: fentaNYL 50 mcg/hour Patch TD SCH ×2 (14:34→14:42)
[2018-01-06] MEDS ORDERED: fentaNYL 50 mcg/hour Patch TD SCH (15:00)
--- NOTE | 2018-01-06 16:50 | MRI ---
MRI LUMBAR SPINE WITH AND WITHOUT CONTRAST: HISTORY: Diskitis and osteomyelitis with epidural abscess. COMPARISON: 12/10/2017 and 10/29/2017 TECHNIQUE: MRI lumbar spine is performed with and without intravenous Gadolinium administration. Multisequentia l, multiplanar imaging is performed. FINDINGS: There is increased fluid signal intensity in the L5-S1 disk space. The amount of fluid signal intens ity has progressed when compared to the prior examination. There is edema involving the L5 vertebral body, as well as the S1 level. There is continued irregularity involving the inferior aspect of L5 and the superior aspect of S1, suggesting osseous destruction. Edema does extend into the bilateral posterior elements at L5 and S1. The conus medullaris is unchanged in position and terminates at the T12-L1 level. Appropriate signal intensity in the visualized solid organs. There is no evidence of a psoas muscle abscess. There is stable degenerative change of the lumbar spine. There is moderate central canal stenosis at L2-L3, L3-L4, and L4-L5, with associated significant foraminal narrowing, similar to the previous ex aminations. At L5-S1, there is no evidence of high grade central canal stenosis. Moderate severe right and moder ate left foraminal narrowing. Post contrast images demonstrate abnormal enhancement at L5-S1, as well as the associate disk space. There is abnormal enhancement anterior to the L5-S1 level, suggesting paraspinal phlegmonous change. There is also anterior epidural enhancement, posterior to the L5-S1 vertebral body. The degree of enhancement in the anterior epidural space is stable. An obvious fluid collection is not appreciated in the anterior epidural space. Phlegmonous change/reactive change is favored. IMPRESSION: Progression of destructive and reactive changes at the L5-S1 level due to progression of diskitis/ost eomyelitis. There is evidence of anterior and epidural phlegmonous change. Large/significant epidur al abscess is not appreciated at this time. POS: [facility]
--- NOTE | 2018-01-06 16:59 | MRI ---
MRI CERVICAL SPINE WITH AND WITHOUT IV CONTRAST: Date: 01/06/18 HISTORY: Follow-up diskitis and osteomyelitis. COMPARISON: 12/10/17. FINDINGS: There is stable mild anterolisthesis of C3 on C4 and C7 on T1. Again noted is abnormal signal intensity within the C6 and C7 vertebral bodies with irregularity of t he end plates at this level. There is also persistent enhancement of the C6 and C7 vertebral bodies, again related to diskitis and osteomyelitis. Degree of enhancement does appear improved from the prio r exam. The previously described stable mild abnormal enhancement along the anterior epidural space a t the C3, C4, and C5 vertebral bodies, and to a lesser extent C6 vertebral body. However, the degree of enhancement in this region does appear improved from the prior study. No epidural fluid collection is seen to suggest an epidural abscess. There is mention of enhancement of the C6 spinous process on the prior exam. This is less well deline ated on today's examination. The abnormal signal intensity in the interspinous ligament at the C5-6 l evel is again seen with mild enhancement again present, although degree of enhancement of the intersp inous ligament at the C5-6 level has improved. Abnormal enhancement in the paraspinal soft tissues an teriorly and anterolateral to the C5-6 level has also improved. No new levels of abnormal enhancement or signal intensity are seen involving the cervical spine. Ther e are stable degenerative changes again seen in the cervical spine, which were described on the prior study, and the degenerative changes are stable from that prior exam. No other interval change. IMPRESSION: 1. Stable findings of diskitis and osteomyelitis at the C6-7 level. The degree of enhancement does a ppear mildly improved, and there is also mild improvement in the enhancement in the soft tissues carlyle cent to the C6-7 level, as well as in the region of the C6-7 interspinous ligament. Enhancement of th e C6 spinous process is less well delineated on this exam as well. 2. Improvement in enhancement in the epidural space extending from C3 to C7 level has improved. No e pidural fluid collection or findings to suggest epidural abscess are seen on this exam. No new areas of abnormal enhancement are appreciated. 3. Stable degenerative changes which were described on prior exam. POS: [facility]
--- NOTE | 2018-01-06 21:25 | PDOC.CTH ---
Cardiology Progress Note - Subjective The pt. was seen by me. He was sleeping and did not awaken when I examined him. Earlier he was in radiology for an MRI. Review of the records do not indicated any significant recent events. - ROS not able to obtain ROS - Objective Vital Signs Temp Pulse Pulse Pulse Resp BP BP 01/06/18 18:47 71 18 01/06/18 16:00 97.8 F 68 10 L 01/06/18 15:49 77 86 123/60 145/66 H 01/06/18 14:05 76 20 01/06/18 09:43 86 BP BP Pulse Ox 01/06/18 18:47 94 L 01/06/18 16:00 116/57 L 93 L 01/06/18 15:49 126/61 01/06/18 14:05 134/64 92 L 01/06/18 09:43 Admit Weight 174 lb 13.225 oz Weight 165 lb 3.2 oz 01/05/18 01/06/18 01/07/18 06:59 06:59 06:59 Intake Total 1900 1522 1054 Output Total 200 Balance 1900 1322 1054 - Physical Examination General/Neuro: other: (sleeping.) Neck: no JVD present Lungs: CTA Heart: RRR Abdomen: soft - Labs Result Diagrams: 01/06/18 09:05 01/05/18 03:55 Troponin/CKMB CK-MB (CK-2) 13.2 ng/mL (0-6.6) H* 01/01/18 16:41 Troponin I 2.914 ng/mL (< 0.028) H* 01/02/18 01:37 - Assessment/Plan 1. Epidural abcesses. 2. CAD,3 vessel.Inoperable. Continue supportive care. 3. GI bleed. No obvious loss at present but HGb. low. 4. Aortic stenosis. Not a candidate for surgery. 5. DM 6. ETOH induced liver cirrhosis. 7. PVD 8. HTN 9. Hx. Atrial fibrillation. 10. COPD The overall cardiac status is stable at this time. I will sign off. If any changes I will be more than happy to revisit the pt.
[2018-01-06] MEDS: Atorvastatin Calcium 40 MG TAB PO SCH (21:57)
[2018-01-06] MEDS: Docusate 100 MG CAP PO SCH (21:57)
[2018-01-07] MEDS: traMADol HCl 50 MG TAB PO PRN ×3 (02:51→17:27)
[2018-01-07] MEDS: Nicotine 14 MG PATCH TD SCH (04:54)
[2018-01-07] MEDS: Levothyroxine 175 MCG TAB PO SCH (04:54)
[2018-01-07] MEDS: Budesonide 0.5 MG/2 ML NEB NEB SCH ×2 (06:37→18:07)
[2018-01-07 06:46] LABS: Anion Gap 10 mmol/L (10-20); BUN (Urea Nitrogen) 11 mg/dL (8.4-25.7); Calc. Creatinine Clearance 77 mL/min (70-130); Calcium 7.9 mg/dL (7.8-10.44); Carbon Dioxide 26 mmol/L (23-31); Chloride 102 mmol/L (98-107); Estimated GFR-MDRD 82; Glucose 222 mg/dL (83-110); Potassium 4.2 mmol/L (3.5-5.1); Sodium 134 mmol/L (136-145)
--- NOTE | 2018-01-07 07:32 | PDOC.FM ---
- Subjective Subjective: Pt reports still having some increased back pain in his lower back overnight. Was wondering if the patch had worn off. Denies any fever or chills. Denies any n/v/d/c. Denies any chest pain or SOB. Denies any bloody stool. No other concerns or complaints at this time - Objective MAR Reviewed: Yes Vital Signs & Weight: Vital Signs (12 hours) Temp Pulse Resp BP Pulse Ox 01/07/18 06:37 62 18 90 L 01/07/18 04:00 97.9 F 83 19 129/70 93 L 01/06/18 20:00 98.5 F 67 18 160/84 H Weight Admit Weight 79.3 kg Weight 74.389 kg I&O: 01/06/18 01/07/18 01/08/18 06:59 06:59 06:59 Intake Total 1522 1054 Output Total 200 Balance 1322 1054 Result Diagrams: 01/06/18 09:05 01/07/18 05:54 Radiology Reviewed by me: Yes Radiology: Cervical Spine MRI: Shows improvement of epidural abscess. Shows mild improvement of discitis and osteomyelitis. Full report can be seen. Lumbosacral Spine MRI: Shows progression of discitis and osteomyelitis and reactive changes at L5-S1 <Vinod Irvin - Last Filed: 01/07/18 07:30> - Objective Vital Signs & Weight: Vital Signs (12 hours) Temp Pulse Resp BP Pulse Ox 01/07/18 09:00 67 01/07/18 07:45 96.7 F L 67 18 136/65 92 L 01/07/18 06:37 62 18 90 L 01/07/18 04:00 97.9 F 83 19 129/70 93 L Weight Admit Weight 79.3 kg Weight 74.389 kg I&O: 01/06/18 01/07/18 01/08/18 06:59 06:59 06:59 Intake Total 1522 1054 Output Total 200 Balance 1322 1054 Result Diagrams: 01/07/18 05:02 01/07/18 05:54 <Dewayne Alfaro - Last Filed: 01/07/18 11:36> Phys Exam - Physical Examination Constitutional: NAD HEENT: PERRLA, moist MMs, sclera anicteric Neck: no nodes, supple, full ROM Respiratory: no wheezing, no rhonchi Some mild rhales bilaterally Cardiovascular: RRR, no significant murmur, no rub Gastrointestinal: soft, non-tender, positive bowel sounds Musculoskeletal: no edema, pulses present Neurological: non-focal, normal sensation, moves all 4 limbs Lymphatic: no nodes Psychiatric: normal affect, A&O x 3 Skin: no rash, normal turgor, cap refill <2 seconds <Vinod Irvin - Last Filed: 01/07/18 07:30> Dx/Plan (1) Symptomatic anemia Code(s): D64.9 - ANEMIA, UNSPECIFIED Status: Acute (2) Acute GI bleeding Code(s): K92.2 - GASTROINTESTINAL HEMORRHAGE, UNSPECIFIED Status: Resolved (3) Demand ischemia of myocardium Code(s): I24.8 - OTHER FORMS OF ACUTE ISCHEMIC HEART DISEASE Status: Acute (4) Discitis of lumbosacral region Code(s): M46.47 - DISCITIS, UNSPECIFIED, LUMBOSACRAL REGION Status: Acute (5) 3-vessel CAD Status: Chronic (6) DM type 2 (diabetes mellitus, type 2) Status: Chronic Qualifiers: 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 mellitus intermodal dispatcher insulin use: with fdc use Diabetes mellitus complication status: without complication Qualified Code(s): E11.9 - Type 2 diabetes mellitus without complications; Z79.4 - jail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 (7) Alcoholic cirrhosis of liver Code(s): K70.30 - ALCOHOLIC CIRRHOSIS OF LIVER WITHOUT ASCITES Status: Chronic Qualifiers: Ascites presence: without ascites Qualified Code(s): K70.30 - Alcoholic cirrhosis of liver without ascites (8) Aortic stenosis Code(s): I35.0 - NONRHEUMATIC AORTIC (VALVE) STENOSIS Status: Chronic (9) COPD (chronic obstructive pulmonary disease) Status: Chronic (10) HTN (hypertension) Code(s): I10 - ESSENTIAL (PRIMARY) HYPERTENSION Status: Chronic (11) Lung nodule Code(s): R91.1 - SOLITARY PULMONARY NODULE Status: Chronic - Plan Plan: Symptomatic anemia 2/2 severe esophageal gastritis -VSS, Hg 7.3 at last check. has stabilized. Will repeat cbc today. Plan to transfuse for Hg </= 7 -continue Protonix -GI consulted-Ragupathi -EGD shows severe esophagitis and mild gastritis. Bx shows active erosive esophagitis. No sign of barretts. No other abnormality. Will continue PPI for now Diskitis, Osteomyelitis with epidural abscess - ID consulted- Dr. Wilder- recommended d/c of abx therapy since patient has been treated for 2 months and possible causes of erosive esophagitis. - CRP unchanged. - MRI of cervical spine shows mild improvement. -MRI of Lumbosacral spine shows progression and reactive changes of osteomyelitis in L5-S1 area. Is area of patients pain. May need to consult neurosurgery. Will await recs of ID Demand Ischemia -Cardiology consulted- Follow recs -Nothing they can do at this time due to bleed. -Stable from cardiac standpoint Acute Hypoxic Resp Distress (Resolved) -Had second episode of AMS a few days ago due to hypoglycemia Pt back to baseline. Coronary Artery disease -3v disease on cath 07/2017- medically managed, poor surgical candidate per Cards -avoid ASA with current GI bleed and avoid anticoagulation -Cardiology consulted- continue to follow recs Stable from their standpoint Diabetes mellitus -Home regimen stopped due to severe hypoglycemia a few days ago.Sugars in mid 100s to low 200's. Will continue to watch sugars and possibly begin lantus tx later today. Continue metformin. -Pt diet likely differs at home compared to when in hospital. Likely reason he dropped so low on home insulin regimen when started Saturday. pAfib -telemetry monitoring -not on any anticoagulation per home med rec likely 2/2 hx of GI bleed. Not recommended by cardiology at this time -Digoxing and amiodorone. Continue at this time -Cardiology consulted- follow recs HTN -BP stable. Not on any meds at this time. No need to continue at this time Tobacco Abuse -Cessation education -TD nicotine Alcohol abuse -ASE protocol. Lung Nodule -Seen on CXR fom 01/01 (12 mm) -Seen on previous CXR (18 mm) and Chest CT from 07/2017. -Size appears stable, continue to monitor. COPD -continue home meds. No worsening SOB <Vinod Irvin - Last Filed: 01/07/18 07:30> Attending Addendum - Attending Addendum Date/Time: 01/07/18 [id number] I personally evaluated the patient and discussed the management with Dr. Irvin I agree with the History, Examination, Assessment and Plan documented above with any addition or exceptions noted below.Patient stable to transition out telemetry continue advance activity. MRI findings noted Dr Wilder for continued ABX rec and although neuro exam stable feel prudent to obtain Neurosurgery opinion for any recommendations. <Dewayne Alfaro - Last Filed: 01/07/18 11:36>
[2018-01-07 08:40] LABS: Hemoglobin 7.7 g/dL (14.0-18.0); Mean Corpuscular HGB CONC 31.6 g/dL (32.0-36.0); Mean Corpuscular Hemoglobin 30.5 pg (27.0-31.0); Mean Corpuscular Volume 96.6 fL (78.0-98.0); Mean Platelet Volume 8.6 fL (7.4-10.4); Platelet Count 148 thou/uL (130-400); RBC Distribution Width 17.8 % (11.5-14.5); Red Blood Cell (RBC) Count 2.53 mill/uL (4.70-6.10); White Blood Cell (WBC) Count 3.1 thou/uL (4.8-10.8)
[2018-01-07] MEDS: metFORMIN 500 MG TAB PO SCH (09:00)
[2018-01-07] MEDS: Digoxin 0.125 MG TAB PO SCH (09:00)
[2018-01-07] MEDS: Ferrous Sulfate 325 MG TAB PO SCH (09:00)
[2018-01-07] MEDS: Amiodarone 200 MG TAB PO SCH (09:00)
[2018-01-07] MEDS: Carvedilol 3.125 MG TAB PO SCH ×2 (09:00→17:23)
[2018-01-07] MEDS: Magnesium Oxide 400 MG TAB PO SCH (09:01)
[2018-01-07] MEDS: Gabapentin 300 MG CAP PO SCH ×2 (09:01→20:27)
[2018-01-07] MEDS: Docusate 100 MG CAP PO SCH ×2 (09:01→20:27)
[2018-01-07] MEDS: Lactinex Tablet PO SCH (09:01)
[2018-01-07] MEDS: Multivitamin W/ Minerals 1 TAB PO SCH (09:01)
[2018-01-07] MEDS: DULoxetine 30 MG CAP PO SCH (09:01)
[2018-01-07] MEDS: Folic Acid 1 MG TAB PO SCH (09:01)
[2018-01-07 09:10] LABS: Anisocytosis SLIGHT = 6-15 cells (100X) (0-5/hpf); Band 3 % (5-11); Eosinophils 7 % (0-10); Hypochromia SLIGHT = 6-15 cells (100X) (0-5/hpf); Lymphocytes 34 % (21-51); MDiff Complete? YES; Monocytes 4 % (0-10); Neutrophil 52 % (42-75); PLT Morphology Comment Appears Adequate; Polychromasia MODERATE = 3-4 cells (100X) (0-2/hpf)
[2018-01-07] MEDS ORDERED: Vancomycin HCl 1 GM in Premix Bag 1 BAG IVPB SCH (11:00)
[2018-01-07] MEDS: Vancomycin HCl 1.5 GM in Sodium Chloride 0.9% 250 ML 300 ML IVPB SCH (11:40)
[2018-01-07] MEDS ORDERED: Polyethylene Glycol 3350 17 GM Packet PER TUBE SCH (14:00)
[2018-01-07] MEDS: Atorvastatin Calcium 40 MG TAB PO SCH (20:27)
[2018-01-08] MEDS: traMADol HCl 50 MG TAB PO PRN ×3 (00:37→16:29)
[2018-01-08] MEDS: Nicotine 14 MG PATCH TD SCH (05:37)
[2018-01-08] MEDS: Levothyroxine 175 MCG TAB PO SCH (05:37)
[2018-01-08] MEDS: Budesonide 0.5 MG/2 ML NEB NEB SCH ×2 (06:35→18:23)
[2018-01-08 07:34] LABS: Hemoglobin 7.6 g/dL (14.0-18.0); Mean Corpuscular HGB CONC 31.4 g/dL (32.0-36.0); Mean Corpuscular Volume 95.6 fL (78.0-98.0); Mean Platelet Volume 7.5 fL (7.4-10.4); Platelet Count 167 thou/uL (130-400); RBC Distribution Width 17.3 % (11.5-14.5); Red Blood Cell (RBC) Count 2.52 mill/uL (4.70-6.10); White Blood Cell (WBC) Count 2.9 thou/uL (4.8-10.8)
--- NOTE | 2018-01-08 07:53 | PDOC.FM ---
- Subjective Subjective: Pt doing well. Reports still having back pain. Also reports not getting enough to eat. Reports being hungry. Also reports not having bowel movement yet. Denies any SOB or chest pain. Denies any numbness or tingling in LE. Denies any headache or vision changes. Denies any acute events overnight. No other concerns or questions at this time. - Objective MAR Reviewed: Yes Vital Signs & Weight: Vital Signs (12 hours) Temp Pulse Resp BP Pulse Ox 01/08/18 06:35 64 16 96 01/08/18 04:00 98.4 F 67 12 120/59 L 94 L 01/07/18 20:00 98.6 F 73 16 113/57 L Weight Admit Weight 79.3 kg Weight 75.296 kg I&O: 01/07/18 01/08/18 01/09/18 06:59 06:59 06:59 Intake Total 1054 2920 Output Total 3675 Balance 1054 755 Result Diagrams: 01/08/18 06:54 01/07/18 05:54 EKG Reviewed by me: Yes Radiology Reviewed by me: Yes (MRI results reveiewed yesterday. ) <Vinod Irvin - Last Filed: 01/08/18 07:58> - Objective Vital Signs & Weight: Vital Signs (12 hours) Temp Pulse Resp BP Pulse Ox 01/08/18 09:53 74 01/08/18 08:09 98.3 F 71 16 148/67 H 95 01/08/18 06:35 64 16 96 01/08/18 04:00 98.4 F 67 12 120/59 L 94 L Weight Admit Weight 79.3 kg Weight 75.296 kg I&O: 01/07/18 01/08/18 01/09/18 06:59 06:59 06:59 Intake Total 1054 2920 Output Total 3675 Balance 1054 -755 Result Diagrams: 01/08/18 06:54 01/07/18 05:54 <Dewayne Alfaro - Last Filed: 01/08/18 10:33> Phys Exam - Physical Examination Constitutional: NAD HEENT: PERRLA, moist MMs Neck: no nodes, supple, full ROM Respiratory: no wheezing, no rales, no rhonchi, clear to auscultation bilateral Cardiovascular: RRR, no rub Possible murmur auscultated. Systolic murmur Gastrointestinal: soft, non-tender, no distention, positive bowel sounds Musculoskeletal: no edema, pulses present Neurological: non-focal, normal sensation, moves all 4 limbs Lymphatic: no nodes Psychiatric: normal affect, A&O x 3 Skin: no rash, normal turgor, cap refill <2 seconds <ThiagoyanaVinod - Last Filed: 01/08/18 07:58> Dx/Plan (1) Symptomatic anemia Code(s): D64.9 - ANEMIA, UNSPECIFIED Status: Acute (2) Acute GI bleeding Code(s): K92.2 - GASTROINTESTINAL HEMORRHAGE, UNSPECIFIED Status: Resolved (3) Demand ischemia of myocardium Code(s): I24.8 - OTHER FORMS OF ACUTE ISCHEMIC HEART DISEASE Status: Acute (4) Discitis of lumbosacral region Code(s): M46.47 - DISCITIS, UNSPECIFIED, LUMBOSACRAL REGION Status: Acute (5) 3-vessel CAD Status: Chronic (6) DM type 2 (diabetes mellitus, type 2) Status: Chronic Qualifiers: Diabetes mellitus long-term insulin use: with long-term use Diabetes mellitus complication status: without complication Qualified Code(s): E11.9 - Type 2 diabetes mellitus without complications; Z79.4 - 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 (7) Alcoholic cirrhosis of liver Code(s): K70.30 - ALCOHOLIC CIRRHOSIS OF LIVER WITHOUT ASCITES Status: Chronic Qualifiers: Ascites presence: without ascites Qualified Code(s): K70.30 - Alcoholic cirrhosis of liver without ascites (8) Aortic stenosis Code(s): I35.0 - NONRHEUMATIC AORTIC (VALVE) STENOSIS Status: Chronic (9) COPD (chronic obstructive pulmonary disease) Status: Chronic (10) HTN (hypertension) Code(s): I10 - ESSENTIAL (PRIMARY) HYPERTENSION Status: Chronic (11) Lung nodule Code(s): R91.1 - SOLITARY PULMONARY NODULE Status: Chronic - Plan Plan: Symptomatic anemia 2/2 severe esophageal gastritis -VSS, Hg 7.6 today. Staying stable. Plan to transfuse for Hg </= 7 -continue Protonix -GI consulted-Ragupathi -EGD shows severe esophagitis and mild gastritis. Bx shows active erosive esophagitis. No sign of barretts. No other abnormality. Will continue PPI for now Diskitis, Osteomyelitis with epidural abscess - ID consulted- Dr. Wilder- recommended d/c of abx therapy since patient has been treated for 2 months and possible causes of erosive esophagitis. - CRP unchanged. - MRI of cervical spine shows mild improvement. -MRI of Lumbosacral spine shows progression and reactive changes of osteomyelitis in L5-S1 area. Is area of patients pain. May need to consult neurosurgery. Will await recs of ID -Will restart IV vancomycin at this time and plan on 6 weeks tx -Neurosurgery consulted- awaiting recs Demand Ischemia -Cardiology consulted- Follow recs -Nothing they can do at this time due to bleed. -Stable from cardiac standpoint Acute Hypoxic Resp Distress (Resolved) -Had second episode of AMS a few days ago due to hypoglycemia Pt back to baseline. Coronary Artery disease -3v disease on cath 07/2017- medically managed, poor surgical candidate per Cards -avoid ASA with current GI bleed and avoid anticoagulation -Cardiology consulted- continue to follow recs Stable from their standpoint Diabetes mellitus -Home regimen stopped due to severe hypoglycemia a few days ago.Sugars in mid 100s to low 200's. Will give 5u lantus this AM and continue to trend sugars. Will slowly restart lantus regimen. Continue metformin. -Pt diet likely differs at home compared to when in hospital. Likely reason he dropped so low on home insulin regimen when started Saturday. pAfib -telemetry monitoring -not on any anticoagulation per home med rec likely 2/2 hx of GI bleed. Not recommended by cardiology at this time -Digoxing and amiodorone. Continue at this time -Cardiology consulted- follow recs HTN -BP stable. Not on any meds at this time. No need to continue at this time Tobacco Abuse -Cessation education -TD nicotine Alcohol abuse -ASE protocol. Lung Nodule -Seen on CXR fom 01/01 (12 mm) -Seen on previous CXR (18 mm) and Chest CT from 07/2017. -Size appears stable, continue to monitor. COPD -continue home meds. No worsening SOB <Vinod Irvin - Last Filed: 01/08/18 07:58> Attending Addendum - Attending Addendum Date/Time: 01/08/18 1031 I personally evaluated the patient and discussed the management with Dr. Irvin I agree with the History, Examination, Assessment and Plan documented above with any addition or exceptions noted below. Given MRI changes Lumbar spine feel Neurosurgery opinion warranted for any recommendations. <Dewayne Alfaro - Last Filed: 01/08/18 10:33>
[2018-01-08 08:10] LABS: Band 6 % (5-11); Eosinophils 5 % (0-10); Hypochromia SLIGHT = 6-15 cells (100X) (0-5/hpf); Lymphocytes 34 % (21-51); MDiff Complete? YES; Monocytes 13 % (0-10); Neutrophil 41 % (42-75); PLT Morphology Comment Appears Adequate; Polychromasia SLIGHT = 2-3 cells (100X) (0-2/hpf)
[2018-01-08] MEDS ORDERED: Insulin Glargine 5 UNITS in Pre-Filled Syringe 1 EACH SC SCH (09:00)
[2018-01-08] MEDS: Polyethylene Glycol 3350 17 GM Packet PER TUBE SCH (09:51)
[2018-01-08] MEDS: Digoxin 0.125 MG TAB PO SCH (09:53)
[2018-01-08] MEDS: Lactinex Tablet PO SCH (09:53)
[2018-01-08] MEDS: Gabapentin 300 MG CAP PO SCH ×2 (09:54→20:54)
[2018-01-08] MEDS: Carvedilol 3.125 MG TAB PO SCH ×2 (09:54→16:30)
[2018-01-08] MEDS: Multivitamin W/ Minerals 1 TAB PO SCH (09:54)
[2018-01-08] MEDS: Amiodarone 200 MG TAB PO SCH (09:54)
[2018-01-08] MEDS: Magnesium Oxide 400 MG TAB PO SCH (09:54)
[2018-01-08] MEDS: Ferrous Sulfate 325 MG TAB PO SCH (09:54)
[2018-01-08] MEDS: Docusate 100 MG CAP PO SCH ×2 (09:54→20:54)
[2018-01-08] MEDS: DULoxetine 30 MG CAP PO SCH (09:54)
[2018-01-08] MEDS: Folic Acid 1 MG TAB PO SCH (09:54)
[2018-01-08] MEDS: metFORMIN 500 MG TAB PO SCH (09:54)
[2018-01-08] MEDS ORDERED: fentaNYL 75 mcg/hour Patch TD SCH ×2 (11:00→18:00)
[2018-01-08] MEDS: Vancomycin HCl 1.5 GM in Sodium Chloride 0.9% 250 ML 300 ML IVPB SCH (11:37)
--- NOTE | 2018-01-08 11:38 | CON ---
DATE OF CONSULTATION: 01/08/2018 This is a 30 minute initial patient evaluation in which greater than 50% of the exam was spent juan christianson regarding the patient's care. The remainder of the exam was spent in review of the patient's nc dical records and appropriate imaging studies. CHIEF COMPLAINT: Low back pain with history of lumbar osteomyelitis and diskitis. HISTORY OF PRESENT ILLNESS: Mr. Cruz is a pleasant 72-year-old male who presents to [facility] for the above complaints. The patient had a history of cervical and lumbar osteomyelitis in and previously seen by our team. The patient states that he has more or less had back pain sin ce this time, but over the past several weeks his neck pain has completely resolved. He states he is comfortable lying in bed, but with any type of movement, has right greater than left paralumbar pain . He denies leg pain. He states that he has had a few falls over the past few months and does use a cane and/or walker when at home. He also has a history of diabetes mellitus type 2, insulin-depende nt, alcohol and tobacco abuse and atrial fibrillation. He states he is on 81 mg aspirin and some unk nown blood thinner and the reason for his admission to the hospital at this time was for increased lo w back pain and dark black emesis. Review of the patient's MRI of the cervical and lumbar spine show almost complete resolution of the cervical epidural abscess from C2-5 that was present in October. The patient's lumbar spine MRI shows perhaps some progression of L5-S1 diskitis into erosive osteomyelit is. PHYSICAL EXAMINATION: The patient is awake, alert, and appropriate. GCS is 15. He has full strengt h in the bilateral upper and bilateral lower extremities. He does have some tenderness to palpation in the right paralumbar region. He does, however, appear to be comfortable at this time. He has no myelopathic features on exam. IMPRESSION: 1. Lumbar spine osteo and diskitis most apparent at L5-S1. 2. Resolution of cervical osteomyelitis. 3. History of tobacco and alcohol abuse. 4. Atrial fibrillation, not on blood thinners since admission. 5. Diabetes mellitus type 2, insulin-dependent. PLAN: I have discussed the patient's case and imaging with Dr. Benedict. The patient was given a TLSO brace to wear to help with his pain in October and states he still has this at home. He states this di d not help to improve his pain at all when he was up walking. We will defer appropriate antibiotics to Infectious Disease, although he has been on vancomycin. There is a question of possible erosive e sophagitis, so this may need to be changed. At this time, the patient does not require neurosurgical intervention and I believe that his low back pain will improve once his infection is appropriately t reated. We will continue to intermittently monitor the patient, but again I do not think that Neuros urgery or surgical intervention will be required. Please call with any questions or changes in the p atient's neurologic status.
[2018-01-08 12:59] VITALS: BMI 22.5
[2018-01-08] MEDS: Atorvastatin Calcium 40 MG TAB PO SCH (20:54)
[2018-01-08] MEDS: traZODone HCl 50 MG TAB PO PRN (20:55)
[2018-01-09] MEDS: traMADol HCl 50 MG TAB PO PRN ×3 (05:40→16:25)
[2018-01-09] MEDS: Levothyroxine 175 MCG TAB PO SCH (05:40)
[2018-01-09] MEDS: Nicotine 14 MG PATCH TD SCH (05:40)
[2018-01-09] MEDS: Budesonide 0.5 MG/2 ML NEB NEB SCH ×2 (06:13→18:29)
--- NOTE | 2018-01-09 07:40 | PRG ---
DATE OF SERVICE: 01/09/2018 Mr. Cruz was readmitted for progression of osteodiskitis in the cervical and lumbar spine. Cervica l spine MRI is improved. His lumbar demonstrates there is persistence of osteodiscitis not unusual. His lumbar spine demonstrates progression as well, but again no worrisome evidence of neural element compromise. We recommend bracing and antibiotics. When he was here in October he was noncompliant in this regard, of course, that is his prerogative. I certainly would not recommend any surgery.
--- NOTE | 2018-01-09 08:41 | PDOC.FM ---
- Subjective Subjective: Pt doing well. Denies any fever or chills. Denies any SOB. Denies any sign of bleeding. Pt reports back pain is still about the same. Pt reports still being hungry. Denies any acute events overnight. No other questions or concerns at this time. - Objective MAR Reviewed: Yes Vital Signs & Weight: Vital Signs (12 hours) Temp Pulse Resp BP Pulse Ox 01/09/18 08:09 98.9 F 79 18 129/75 95 01/09/18 06:13 75 16 92 L 01/09/18 04:06 98.1 F 69 18 106/65 93 L 01/09/18 00:14 98.1 F 69 16 123/69 93 L Weight Admit Weight 79.3 kg Weight 79.968 kg I&O: 01/08/18 01/09/18 01/10/18 06:59 06:59 06:59 Intake Total 2920 400 Output Total 3675 400 Balance -755 0 Result Diagrams: 01/08/18 06:54 01/07/18 05:54 <Vinod Irvin - Last Filed: 01/09/18 08:39> - Objective Vital Signs & Weight: Vital Signs (12 hours) Temp Pulse Resp BP Pulse Ox 01/09/18 09:07 95 01/09/18 08:49 79 01/09/18 08:09 98.9 F 79 18 129/75 95 01/09/18 06:13 75 16 92 L 01/09/18 04:06 98.1 F 69 18 106/65 93 L 01/09/18 00:14 98.1 F 69 16 123/69 93 L Weight Admit Weight 79.3 kg Weight 79.968 kg I&O: 01/08/18 01/09/18 01/10/18 06:59 06:59 06:59 Intake Total 2920 400 Output Total 3675 400 Balance -755 0 Result Diagrams: 01/08/18 06:54 01/07/18 05:54 <Dewayne Alfaro - Last Filed: 01/09/18 11:34> Phys Exam - Physical Examination Constitutional: NAD HEENT: PERRLA, moist MMs Neck: no nodes, supple, full ROM Respiratory: no wheezing, no rales, no rhonchi, clear to auscultation bilateral Cardiovascular: RRR, no rub systolic murmur noted Gastrointestinal: soft, non-tender, no distention, positive bowel sounds Musculoskeletal: no edema, pulses present Neurological: non-focal, normal sensation, moves all 4 limbs Lymphatic: no nodes Psychiatric: normal affect Skin: no rash, normal turgor, cap refill <2 seconds <Vinod Irvin - Last Filed: 01/09/18 08:39> Dx/Plan (1) Symptomatic anemia Code(s): D64.9 - ANEMIA, UNSPECIFIED Status: Acute (2) Acute GI bleeding Code(s): K92.2 - GASTROINTESTINAL HEMORRHAGE, UNSPECIFIED Status: Resolved (3) Demand ischemia of myocardium Code(s): I24.8 - OTHER FORMS OF ACUTE ISCHEMIC HEART DISEASE Status: Acute (4) Discitis of lumbosacral region Code(s): M46.47 - DISCITIS, UNSPECIFIED, LUMBOSACRAL REGION Status: Acute (5) 3-vessel CAD Status: Chronic (6) DM type 2 (diabetes mellitus, type 2) Status: Chronic Qualifiers: Diabetes mellitus shelter insulin use: with 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 treater 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 use Diabetes mellitus complication status: without complication Qualified Code(s): E11.9 - Type 2 diabetes mellitus without complications; Z79.4 - watermaster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 (7) Alcoholic cirrhosis of liver Code(s): K70.30 - ALCOHOLIC CIRRHOSIS OF LIVER WITHOUT ASCITES Status: Chronic Qualifiers: Ascites presence: without ascites Qualified Code(s): K70.30 - Alcoholic cirrhosis of liver without ascites (8) Aortic stenosis Code(s): I35.0 - NONRHEUMATIC AORTIC (VALVE) STENOSIS Status: Chronic (9) COPD (chronic obstructive pulmonary disease) Status: Chronic (10) HTN (hypertension) Code(s): I10 - ESSENTIAL (PRIMARY) HYPERTENSION Status: Chronic (11) Lung nodule Code(s): R91.1 - SOLITARY PULMONARY NODULE Status: Chronic - Plan Plan: Symptomatic anemia 2/2 severe esophageal gastritis -VSS, Hg staying stable. Plan to transfuse for Hg </= 7 -continue Protonix -GI consulted-Juani -EGD shows severe esophagitis and mild gastritis. Bx shows active erosive esophagitis. No sign of barretts. No other abnormality. Will continue PPI for now Diskitis, Osteomyelitis with epidural abscess - ID consulted- Dr. Wilder- recommended d/c of abx therapy since patient has been treated for 2 months and possible causes of erosive esophagitis. - CRP unchanged. - MRI of cervical spine shows mild improvement. -MRI of Lumbosacral spine shows progression and reactive changes of osteomyelitis in L5-S1 area. Is area of patients pain. May need to consult neurosurgery. Will await recs of ID -Will restart IV vancomycin at this time and plan on 6 weeks tx -Neurosurgery consulted- do not recommend surgery. Recommend bracing and antibiotics. -Plan to go to rehab today for continued abx tx and to help with bracing and PT Demand Ischemia -Cardiology consulted- Follow recs -Nothing they can do at this time due to bleed. -Stable from cardiac standpoint Acute Hypoxic Resp Distress (Resolved) -Had second episode of AMS a few days ago due to hypoglycemia Pt back to baseline. Coronary Artery disease -3v disease on cath 07/2017- medically managed, poor surgical candidate per Cards -avoid ASA with current GI bleed and avoid anticoagulation -Cardiology consulted- continue to follow recs Stable from their standpoint Diabetes mellitus -Home regimen stopped due to severe hypoglycemia a few days ago.Sugars in mid 100s to low 200's. Increased AM lantus to 15u subq as sugars in 200's yesterday. Continuing to adjust regimen Continue metformin. -Pt diet likely differs at home compared to when in hospital. Likely reason he dropped so low on home insulin regimen when started Saturday. pAfib -telemetry monitoring -not on any anticoagulation per home med rec likely 2/2 hx of GI bleed. Not recommended by cardiology at this time -Digoxing and amiodorone. Continue at this time -Cardiology consulted- follow recs HTN -BP stable. Not on any meds at this time. No need to continue at this time Tobacco Abuse -Cessation education -TD nicotine Alcohol abuse -ASE protocol. Lung Nodule -Seen on CXR fom 01/01 (12 mm) -Seen on previous CXR (18 mm) and Chest CT from 07/2017. -Size appears stable, continue to monitor. COPD -continue home meds. No worsening SOB <Vinod Irvin - Last Filed: 01/09/18 08:39> Attending Addendum - Attending Addendum Date/Time: 01/09/18 0752 I personally evaluated the patient and discussed the management with Dr. Irvin I agree with the History, Examination, Assessment and Plan documented above with any addition or exceptions noted below.Patient is stable for discharge to rehab termite treater helper prognosis remains guarded with multiple co-morbid conditions. Will receive 6 week IV vancomycin. <Dewayne Alfaro - Last Filed: 01/09/18 11:34>
[2018-01-09] MEDS: Digoxin 0.125 MG TAB PO SCH (08:49)
[2018-01-09] MEDS: Docusate 100 MG CAP PO SCH ×2 (08:50→19:45)
[2018-01-09] MEDS: metFORMIN 500 MG TAB PO SCH (08:50)
[2018-01-09] MEDS: Ferrous Sulfate 325 MG TAB PO SCH (08:50)
[2018-01-09] MEDS: Lactinex Tablet PO SCH (08:50)
[2018-01-09] MEDS: Folic Acid 1 MG TAB PO SCH (08:50)
[2018-01-09] MEDS: DULoxetine 30 MG CAP PO SCH (08:50)
[2018-01-09] MEDS: Magnesium Oxide 400 MG TAB PO SCH (08:51)
[2018-01-09] MEDS: Multivitamin W/ Minerals 1 TAB PO SCH (08:51)
[2018-01-09] MEDS: Gabapentin 300 MG CAP PO SCH ×2 (08:51→19:45)
[2018-01-09] MEDS: Amiodarone 200 MG TAB PO SCH (08:51)
[2018-01-09] MEDS: Carvedilol 3.125 MG TAB PO SCH ×2 (08:51→16:25)
[2018-01-09] MEDS: Polyethylene Glycol 3350 17 GM Packet PER TUBE SCH (08:52)
[2018-01-09] MEDS ORDERED: Insulin Glargine 15 UNITS in Pre-Filled Syringe 1 EACH SC SCH ×2 (09:00→21:00)
[2018-01-09] MEDS ORDERED: Magnesium Citrate 300 ML BOT PO SCH (09:15)
--- NOTE | 2018-01-09 10:02 | PRG ---
DATE OF SERVICE: 01/09/2018. SUBJECTIVE: Mr. Cruz is still having moderate pain in the lumbosacral spine area. The neck has im proved. No respiratory symptoms or abdominal pain. OBJECTIVE: VITAL SIGNS: He has been afebrile and blood pressure 120/70, pulse 79, respirations 18, O2 sat 95%. LUNGS: Clear to auscultation and percussion. HEART: Normal. ABDOMEN: Soft, not distended or tender. EXTREMITIES: Moves all extremities equally. LABORATORY DATA: Sodium 134, creatinine 0.91, glucose 229, calcium 7.9 and last liver profile was fr 01/02/2018 with AST 59, ALT 19. Vancomycin trough was 42 and dose was adjusted. The MRI showed s till worsening of the findings in the lumbar spine, improvement in the cervical spine. ASSESSMENT AND DISCUSSION: Type 2 diabetes with coronary artery disease and MRSA infection with exte nsive spinal involvement, mostly in cervical spine and lumbar spine, treated for 2 months, with now e rosive esophagitis, probably associated with the oral medication. The esophageal biopsy showed just nonspecific erosive esophagitis. No viral cytopathic effects noted. At this point in view of the pe rsistence and exacerbation of the lumbar spine illness, we will resume vancomycin and treat for anoth er 42 days. Repeat MRI. Continue to follow up CBC, C-reactive protein, vancomycin trough level and comprehensive metabolic panel on a weekly basis.
[2018-01-09 10:51] LABS: Vancomycin, Trough 17.7 ug/mL
[2018-01-09] MEDS: Vancomycin HCl 1.5 GM in Sodium Chloride 0.9% 250 ML 300 ML IVPB SCH (11:51)
--- NOTE | 2018-01-09 16:13 | SPC ---
LEFT UPPER EXTREMITY PICC LINE ULTRASOUND AND FLUOROSCOPIC GUIDANCE: Fluoroscopy time: 0 minutes intermittent fluoroscopy. Dose: 2 mGy*cm2 PROCEDURE: After informed consent had been obtained, the patient was placed on the interventional suite table in a supine position. The left arm was prepped and draped in a standard sterile fashion. Topical anes thesia was achieved utilizing 1% Lidocaine and sodium bicarbonate. Under real-time sonography, the b asilic vein of the left upper extremity was accessed with a small caliber needle with venous flash pr esent at the needle hub. A guidewire was then advanced in to the needle, and under real-time fluoros copy, the guidewire was advanced to the level of the inferior vena cava to confirm appropriate venous placement. A small skin incision was made and the needle was removed. Over the guidewire, a single lumen PICC line was cut to 42 cm. The PICC line was advanced under real-time fluoroscopy over the g uidewire to the level of the cavoatrial junction. The guidewire and peelaway sheath were then remove d. PICC line flushed and aspirated appropriately and was secured to the left upper extremity. There were no procedural complications. IMPRESSION: Technically successful ultrasound and fluoroscopic-guided left basilic single lumen, 42 cm PICC line placement, as above. POS: [facility]
[2018-01-09] MEDS: HumaLOG 300 UNITS/3 ML VIAL SC PRN ×2 (16:38→19:46)
[2018-01-09 19:35] VITALS: BP 113/67; TEMP 98.7
[2018-01-09] MEDS: Atorvastatin Calcium 40 MG TAB PO SCH (19:45)
--- NOTE | 2018-01-10 03:22 | DIS-2 ---
DATE OF ADMISSION: 01/01/2018 DATE OF DISCHARGE: 01/09/2018 ADMITTING ATTENDING: Dr. Mireille Castillo. DISCHARGE ATTENDING: Dr. Dewayne Alfaro. RESIDENTS: Vinod Irvin, PGY-1. CONSULTATIONS: Include gastroenterology, Dr. Peñaloza; cardiology, Dr. Logan and Dr. Amin; Neurosurgery, Dr. Brooks Benedict; and infectious disease, Dr. Wilder. PROCEDURES: 1. He had an EGD done on 01/02/2018, which showed severe erosive esophagitis starting in the mid esophagus all the way to the GE junction. 2. Small hiatus hernia. 3. Mild gastritis of the gastric antrum, no other pathology. They got a surgical specimen of the esophagus, which showed active erosive esophagitis. No Gipson's, no dysplasia, no fungal organism and no viral cytopathic effects. He then had a procedure on 01/09/2018 had a PICC line placed. IMAGIN. On 01/01/2018, he had a chest x-ray, which showed no radiographic evidence of acute cardiopulmonary process. 1A. Probable 12 mm left upper lobe of the lung nodule for evaluation CT scan warranted. Compared to previous exams looked stable. 2. Brain CT on 01/04/2018, which showed no acute intracranial abnormality. 3. We got a cervical spine MRI on 01/06/2018, which showed stable findings of diskitis and osteomyelitis at C6-C7 level. Degree of enhancement does appear mildly improved and there is also mild improvement in the enhancement in the soft tissues adjacent to the C6-C7 level as well in the region of C6-C7 interspinous ligament enhancement of the C6 on his spinous processes was well delineated on this exam as well. 3A. Improvement enhancement in the epidural space extending from C3 through C7 level has improved. No epidural fluid collection or findings such as epidural abscesses are seen on this exam. No new areas of abnormal enhancement are appreciated. 3B. Stable degenerative changes, which were described on prior exam. 4. He also had a lumbar spine MRI on 01/06/2018, which showed progression of destructive and reactive changes at the L5-S1 level due to progression of diskitis or osteomyelitis. There is evidence of an anterior and epidural phlegmonous change large/significant epidural abscess are not appreciated at this time. DISCHARGE DIAGNOSES: 1. Symptomatic anemia secondary to severe esophageal gastritis. 2. Diskitis and osteomyelitis. 3. Acute hypoxic respiratory distress. 4. Three-vessel coronary artery disease. 5. Diabetes mellitus. 6. Paroxysmal atrial fibrillation. 7. Hypertension. 8. Tobacco abuse. 9. Alcohol abuse. 10. Lung nodule. 11. Chronic obstructive pulmonary disease. DISCONTINUED MEDICATIONS: Rifampin and minocycline. We also discontinued his home Lantus of 80 mg in the morning and 40 mg at night. DISCHARGE MEDICATIONS: Include amiodarone 200 mg p.o. daily, atorvastatin 40 mg p.o. at bedtime, Pulmicort neb solution 0.5 mg inhaled b.i.d., carvedilol 3.125 mg b.i.d., Colace 100 mg p.o. b.i.d., duloxetine 30 mg p.o. daily, Drisdol 1.25 mg p.o. every 7 days, fentanyl patch 75 mcg transdermal every 3 days, ferrous sulfate 325 mg p.o. daily, gabapentin 300 mg p.o. b.i.d., Lactobacillus 1 tab p.o. daily, levothyroxine 175 mcg p.o. daily, metformin 500 mg p.o. daily, multivitamin 1 tab daily, Protonix 40 mg p.o. b.i.d., thiamine 100 mg daily, tramadol 50 mg p.o. q.6 hours p.r.n. as needed for pain, Lantus 15 units subcutaneous in the morning and 15 units at night, vancomycin 1.5 grams IV piggyback every 24 hours, digoxin 0.125 mg p.o. daily, furosemide 40 mg p.o. daily, Humalog 5 units subcutaneous at 11:30 and 5 units subcutaneous at 7:30, DuoNeb 3 mL nebulized q.6 hours, magnesium oxide 400 mg p.o. daily, Zofran 4 mg p.o. q.6 hours as needed p.r.n. HISTORY OF PRESENT ILLNESS AND BRIEF HOSPITAL COURSE: This is a 72-year-old with past medical history of coronary artery disease, PVD, diabetes mellitus, and bilateral partial foot amputations, who had recent hospitalizations with MRSA and septic emboli to cervical and lumbar epidural space with abscesses, presenting with three-day history of worsening nausea and vomiting. Reported vomit to be dark brown color and having symptoms of weakness and dizziness. Patient reported the week prior, he had history of alcohol abuse and reported relapsing and having about a week binge of drinking alcohol. When he got here, his H&H was 9.9. He appeared volume depleted. He was started on Protonix and octreotide drip. Patient was found to be in sinus tachycardia. He usually had atrial fibrillation, so he took amiodarone and digoxin. His initial troponin was found to be 2.375. Denied any chest pain, but likely due to demand ischemia due to the recent bleed. At this time, due to his alcohol abuse and concern for withdrawal given banana bag to start him on thiamine. At this time , we will trend his troponins. They would trend 2.375, 3.1 to 2.9. At this time, we would consult Cardiology for the demand ischemia. There is mention that this could have been an NSTEMI versus demand ischemia. They reported that he had [id number] aortic stenosis and multivessel severe coronary artery disease. Patient had been evaluated for this at a different hospital and reported that he was a poor surgical candidate. So from Cardiology standpoint, there is nothing they could do and they could not put him on anticoagulation due to gastrointestinal bleed. To the GI bleed, Dr. Peñaloza was consulted. They went in and scope him on 01/02/2018 and found the above findings of severe erosive esophagitis. At this time, patient would stabilize. We will put him on oral iron. His hemoglobin dropped from 8.1 down into the 7s, but on Saturday, we would restart his oral medications. He is on IV vancomycin for his osteomyelitis, diskitis in his back due to not being able to take oral meds before the procedure. We need putting him on rifampin and minocycline. Patient reported having lots of back pain and for the management of diskitis or osteomyelitis, we just consulted Dr. Wilder to let him know that he was here. Dr. Wilder had reported that patient had been on appropriate treatment for 2 months and thought that the rifampin and minocycline was possibly the cause of his severe erosive esophagitis. At this time, he discontinued the medication and recommended the patient get repeat MRIs of the cervical and lumbar spine to see how well treatment had been progressing. Also , during this time, patient had had on Saturday on his diabetes prior to that thing, he had sugars up in the 300s, so at this time, I restarted his home Lantus doses of 80 units in the morning, 40 units at night. Patient then over the weekend 01/04 and 01/05 would get severely hypoglycemic and would have drop his sugar down to the range of 12 or 35. He will be treated with multiple amps of D50, closely watched and also to make it would let patient into acute respiratory distress. Patient on Saturday had also been reporting of a lot of back pain and reported that he had been on a fentanyl patch at an outside facility. That day, he had been using 25 mcg of IV fentanyl every 2 hours over the last 24 hours. At this time, we transitioned to 100 mg fentanyl patch and then patient was on ASE protocol and received 2 mg of Ativan on 1999 on 2017. Patient became apneic, lethargic with a respiratory rate of 2-4 minutes. They put him on oxygen, minimally responsive. They gave him flumazenil and also gave him Narcan at the bedside, thinking that he had probably a little too much of fentanyl. Patient would come to and then found to have a sugar 2 at that time of less than 12. During this time 2, while patient was covering, he was found to be crawling on the floor somewhat somnolent thought to have a bruise on his head and this was on 01/04/2018. He was again hypopneic with respiratory rate of 6. Again, they administered another 0.2 mg of Narcan and transferred him to the [facility] and got the brain CT, which was negative and all this on the morning, this is all with the Narcan. Then, later that afternoon that he was found to have the low blood sugar around 1537 had a blood glucose of 12. They ordered 2 amps of D50 and glucagon IM. Patient was unresponsive after 2-3 minutes administration. They got a brain CT due to his fall prior. After getting the clearance for D50, the patient would come to repeat blood glucose in the IMCU to approximately 200 and 180 afterwards. At this time, we discontinued his home Lantus, discontinued sliding scale insulin form and let his sugars stabilize over the next few days. Within next few days, his sugars would only be in the mid 100-200s. On the and , he will be retransferred to the IMCU on the . Continue to watch sugars and said again the 17 and 18 sugars were normal. We did not start any insulin until the evening of the , as his sugars are started getting up into 200. We started him back as like a new, put him on 5 units of Lantus at night. The next day on the , his sugars were still be elevated. We increased his Lantus by 15 units in the morning. At this time, throughout the day on the , his sugar was still elevated in the 200s and added on 15 units at night and put him back on the 5 units of Humalog he takes during the day at 11:30 and 7:3. We are very cautious of the patient's sugars during this last week, as we do not want him to become hypoglycemic as he had before and also talking with the patient, he always complained of being on hungry. It seems like he probably does not follow a diabetic diet that while at home and is why his Lantus was so high and while he was here he is getting carbohydrate heart-healthy controlled diet with less calories and probably why his sugars were more controlled and his sugars were dropped. Also during the next few days on Saturday, when patient was more stable, we got the cervical spines and lumbar spines, which showed the above findings and showed worsening of the lumbosacral spine. At this time, we called Dr. Wilder, who recommended the patient needed 6 more weeks of IV vancomycin. We also consulted Neurosurgery to get their recommendations. They came and saw him on the and recommended that surgery would not be a good option. I advised that he did not have any neurologic compromise to his nerves at this time, needed a TLSO brace and needed monitoring of antibiotics by Infectious Disease. At this time, patient needed to go to rehab for continued rehabilitation. We will help with the pain in the back, would go and continue getting IV vancomycin treatment. During this whole time, we would continue to trend his hemoglobin every day to make sure, he never had another bleed, never had any complaints of bloody or vomiting after the procedure. His hemoglobin was stabilizing around 7.3, 7.7, and 7.6 on the day of discharge. On day of discharge, we checked vancomycin trough, it would be 17, be getting 1 gram 24 hours and we increased to 1.5 grams. Also, due to patient's somnolence due to probably over pain medication on Saturday, he is still complaining of back pain, so we restarted his fentanyl patch at 50 mcg. Couple of days later, he reported not working as well, so we increased the dose to 75 mcg with tramadol in between for breakthrough pain. Patient reported this was working much better for pain. At this time, patient was stable to go to rehabilitation. Cardiology had signed out from their standpoint. Again, they can do much from the NSTEMI standpoint, he was not a good surgical candidate for 3-vessel disease and severe aortic stenosis and they could not put him on anticoagulation due to his recent GI bleed. They continued his home medications for his atrial fibrillation and signed off. I do again recommended 6 more weeks of IV vancomycin, which he will be going to rehab for Neurosurgery said nothing surgical from their standpoint. DISPOSITION: Stable and little bit guarded. DISCHARGE LOCATION: [facility]. ACTIVITY: As tolerated with his diskitis, osteomyelitis. DIET: He will need to follow a heart healthy, consistent carbohydrate diet. FOLLOWUP: We will need to follow up with his primary care doctor within 1 week. We will need to follow up with Dr. Wilder weekly to continue management of his antibiotics. SHIRA
[2018-01-10] MEDS ORDERED: Ergocalciferol 1.25 MG(50,000 UNITS) CAP PO SCH (09:00)
--- NOTE | 2018-01-11 11:17 | EKG ---
Test Reason : WEAKNESS Blood Pressure : / mmHG Vent. Rate : 130 BPM Atrial Rate : 130 BPM P-R Int : 000 ms QRS Dur : 102 ms QT Int : 328 ms P-R-T Axes : 084 066 087 degrees QTc Int : 482 ms Sinus tachycardia with Premature supraventricular complexes Abnormal ECG Confirmed by CHRIS Fine, MARY ([id number]), design editor JEET RIGGS ([id number] on 01/11/2018 11:17:05 AM Referred By: CHRIS Confirmed By:MARY PEREZ M.D.
== END 2018-01-09 20:11 | DRG 380 ==
LOC: ERS 16:11 → IMCU/EMU 22:17 → 2NO 01-02 18:38 → IMCU/EMU 01-04 16:31 → 2NO 01-05 12:41 → T4-A 01-08 17:29
PROVIDERS: ADMIT Student in an Organized Health Care Education/Training Program; ATTEND Student in an Organized Health Care Education/Training Program
PROC: 0DB58ZX Excision of Esophagus, Via Natural or Artificial Opening Endoscopic, Diagnostic (ICD-10-PCS; principal; 2018-01-02)
PROC: 06H033Z Insertion of Infusion Device into Inferior Vena Cava, Percutaneous Approach (ICD-10-PCS; 2018-01-09)
DX: K22.11 Ulcer of esophagus with bleeding (principal); G06.2 Extradural and subdural abscess, unspecified; I21.4 Non-ST elevation (NSTEMI) myocardial infarction; E87.2 Acidosis; F11.23 Opioid dependence with withdrawal; M46.26 Osteomyelitis of vertebra, lumbar region; D62 Acute posthemorrhagic anemia; K76.6 Portal hypertension; E44.0 Moderate protein-calorie malnutrition; T50.905A Adverse effect of unspecified drugs, medicaments and biological substances, initial encounter; M46.42 Discitis, unspecified, cervical region; I25.10 Atherosclerotic heart disease of native coronary artery without angina pectoris; E11.51 Type 2 diabetes mellitus with diabetic peripheral angiopathy without gangrene; K70.30 Alcoholic cirrhosis of liver without ascites; I10 Essential (primary) hypertension; I35.0 Nonrheumatic aortic (valve) stenosis; I86.4 Gastric varices; E87.6 Hypokalemia; R91.1 Solitary pulmonary nodule; J44.9 Chronic obstructive pulmonary disease, unspecified; E11.42 Type 2 diabetes mellitus with diabetic polyneuropathy; E11.69 Type 2 diabetes mellitus with other specified complication; G89.29 Other chronic pain; E11.649 Type 2 diabetes mellitus with hypoglycemia without coma; B95.62 Methicillin resistant Staphylococcus aureus infection as the cause of diseases classified elsewhere; R06.03 Acute respiratory distress; T40.4X5A Adverse effect of other synthetic narcotics, initial encounter; T42.4X5A Adverse effect of benzodiazepines, initial encounter; F17.210 Nicotine dependence, cigarettes, uncomplicated; K44.9 Diaphragmatic hernia without obstruction or gangrene; M46.47 Discitis, unspecified, lumbosacral region; E83.42 Hypomagnesemia; I48.0 Paroxysmal atrial fibrillation; I25.2 Old myocardial infarction; F41.8 Other specified anxiety disorders; E78.5 Hyperlipidemia, unspecified; E03.9 Hypothyroidism, unspecified; Z68.23 Body mass index [BMI] 23.0-23.9, adult; Z89.432 Acquired absence of left foot; Z89.431 Acquired absence of right foot; Z79.1 Long term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 of non-steroidal anti-inflammatories (NSAID); Z79.4 Long term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; W19.XXXA Unspecified fall, initial encounter; Y92.239 Unspecified place in hospital as the place of occurrence of the external cause
CPT/HCPCS: 36415; 36416; 36569; 70450; 71045; 72156; 72158; 74177; 80048; 80053; 80162; 80202; 80306; 81003; 81015; 82274; 82553; 83036; 83605; 83690; 83735; 84484; 85025; 85027; 85610; 86140; 86850; 86900; 86901; 87040; 88305; 88312; 88313; 90471; 90670; 93005; 94640; 96361; 96365; 96366; 96368; 96375; 96376; A4216; A9579; C9113; G0009; G8978-GP-CL; G8979-GP-CJ; G8987-GO-CK; G8988-GO-CI; J1160; J1610; J1644; J2001; J2060; J2250; J2270; J2310; J2354; J2405; J2704; J3010; J3370; J3411; J3475; J3480; J7050; J7626

== ENCOUNTER 2018-02-19 14:58 | Outpatient (CLI) | payer MEDICARE ==
--- NOTE | 2018-02-19 16:19 | RAD ---
TWO VIEWS OF THE LUMBAR SPINE: 02/19/18 INDICATION: Infection of the spine. COMPARISON: None. FINDINGS: Prominent amount of stool is present within the colon slightly limiting image detail. Motion artifact slightly limits image detail. There is an infrarenal abdominal aortic aneurysm measuring 3.5 cm that is better detailed on CT of the abdomen and pelvis dated 01/01/18. No acute fracture or subluxation is evident. There is mild to moderate multilevel spondylosis of the lumbar spine. There is grade I an terolisthesis of L4 and L5 which is stable to CT examination dated 01/01/18. IMPRESSION: 1. Stable mild spondylosis of the lumbar spine. 2. Infrarenal abdominal aortic aneurysm measuring 3.5 cm. POS: [facility]
== END 2018-02-19 14:59 | disposition home or self-care (01) ==
LOC: TBSIIMAG 14:58
PROVIDERS: ATTEND Surgery
DX: M46.46 Discitis, unspecified, lumbar region (principal); M47.816 Spondylosis without myelopathy or radiculopathy, lumbar region; I71.4 Abdominal aortic aneurysm, without rupture
CPT/HCPCS: 72100

== ENCOUNTER 2018-12-03 19:48 | Inpatient (IN) | payer OTHER, MEDICARE ==
[2018-12-03 20:04] LABS: Actual Bicarbonate (HCO3a) 20.1 mEq/L (22-28); Analyzer IN Cardio ER; Base Excess (BEa) -6.1 mEq/L (-2.0 to +3.0); CO2 Tension 42.2 mmHg (35.0-45.0); Calcium, Ionized 1.07 mmol/L (1.12-1.30); Carboxyhemoglobin (COHb) 0.3 gm% (0.0-3.0); Hemoglobin (Hb) 10.2 g/dL (14.0-18.0); O2 Tension (PaO2) 448.6 mmHg (> 70.0); Potassium - ABG Lab 4.07 mmol/L (3.70-5.30)
[2018-12-03 20:20] LABS: Puncture Site RRA
[2018-12-03] MEDS ORDERED: Pantoprazole 80 MG in Sodium Chloride 0.9% 100 ML IVP SCH (20:30)
--- NOTE | 2018-12-03 20:31 | RAD ---
XR Chest 1 View Portable HISTORY: Intubation COMPARISON: Earlier examination the same day. FINDINGS: Endotracheal tube remains in satisfactory position. An NG tube is been placed which is belo w the hemidiaphragm. Heart size within normal limits and aortic valve stent is present. There are some minimal linear atelectasis in the left base. IMPRESSION: Endotracheal and NG tubes in satisfactory position.
[2018-12-03] MEDS ORDERED: Pantoprazole 40 MG VIAL ONE (20:41)
[2018-12-03 20:53] LABS: Hemoglobin 9.4 g/dL (14.0-18.0); Mean Corpuscular HGB CONC 33.4 g/dL (32.0-36.0); Mean Corpuscular Volume 98.9 fL (78.0-98.0); RBC Distribution Width 15.2 % (11.5-14.5); Red Blood Cell (RBC) Count 2.84 mill/uL (4.70-6.10); White Blood Cell (WBC) Count 6.8 thou/uL (4.8-10.8)
[2018-12-03 20:59] LABS: INR-International Normal Ratio 1.4; Prothrombin Time 16.8 SEC (12.0-14.7)
[2018-12-03 21:00] LABS: PTT 39.2 SEC (22.9-36.1)
[2018-12-03 21:13] LABS: #Lymphocytes 0.5 thou/uL (1.20-3.40); #Monocytes 0.7 thou/uL (0.11-0.59); #Neutrophils 5.6 thou/uL (1.40-6.50); %Lymphocytes 7.5 % (21.0-51.0); %Monocytes 9.6 % (0.0-10.0); %Neutrophils 82.9 % (42.0-75.0); Mean Platelet Volume 8.9 fL (7.4-10.4); Platelet Count 98 thou/uL (130-400)
--- NOTE | 2018-12-03 21:14 | PDOC.FPRHP ---
- History of Present Illness Chief Complaint: AMS History of Present Illness: Unable to obtain history from patient, due to intubation and sedation. Pt is a 73 yo M with PMH of Diskitis, lumbar osteomyelitis, and GI bleed who is a transfer from [place] [facility]. He was found by friend this afternoon altered, A&Ox1. Usually A&Ox4. In [place], he was found to be tachycardic and febrile with AMS. He was started on Vanc and Cefepime there. They attempted LP, but pt became agitated and was intubed and sedated. Head CT was normal. He had normal WBC. UA was positive. He is followed by Dr. Wilder for the osteo and should be off antibiotics. He received versed and fentanyl on tranfer over. History of chronic bravo use, due to split penis. ED Course: On Fentanyl drip. Tropinin elevated at 0.111. H&H: 9.4/28, Plt: 98, WBC: 6.2 with neutrophil predominance. NG tube produced coffee ground emesis. PT-16.8, PTT-39.2, INR:1.4 - Allergies/Adverse Reactions Allergies Allergy/AdvReac Type Severity Reaction Status Date / Time No Known Allergies Allergy Verified 12/04/18 04:02 - Home Medications Medication Instructions Recorded Confirmed Type Amiodarone [Cordarone] 200 mg PO DAILY #30 tab 11/05/17 01/02/18 Rx Budesonide [Pulmicort Neb Solution] 0.5 mg INH BID #60 ampule 11/05/17 01/02/18 Rx DULoxetine [Cymbalta] 30 mg PO DAILY 1 Days #30 cap 12/11/17 01/02/18 Rx Digoxin [Lanoxin] 0.125 mg PO QAM #30 tab 12/11/17 01/02/18 Rx Ergocalciferol [Drisdol] 1.25 mg PO Q7D@0900 #30 cap 12/11/17 01/02/18 Rx Ferrous Sulfate [Feosol] 325 mg PO QAM-WM #30 tab 12/11/17 01/02/18 Rx Furosemide 40 mg PO DAILY #30 tablet 12/11/17 01/02/18 Rx HumaLOG [HumaLOG Vial] 5 units SC 0730 #10 ml 12/11/17 01/02/18 Rx HumaLOG [HumaLOG Vial] 5 units SC 1130 #10 ml 12/11/17 01/02/18 Rx Ipratropium/Albuterol Sulfate 3 ml NEB Q6HR #30 neb 12/11/17 01/02/18 Rx [DuoNeb] Lactobacillus [Floranex] 1 tab PO DAILY #30 tab 12/11/17 01/02/18 Rx Levothyroxine Sodium [Synthroid] 175 mcg PO DAILY #30 tablet 12/11/17 01/02/18 Rx Magnesium Oxide 400 mg PO DAILY #30 tab 12/11/17 01/02/18 Rx fentaNYL [Duragesic] 75 mcg TD Q3D #5 patch 12/11/17 01/02/18 Rx Gabapentin [Neurontin] 300 mg PO BID 01/02/18 01/02/18 History Ondansetron [Zofran ODT] 4 mg PO Q6H PRN 01/02/18 01/02/18 History metFORMIN [Glucophage] 500 mg PO QAM-WM 01/02/18 01/02/18 History Atorvastatin Calcium [Lipitor] 40 mg PO HS tab 01/09/18 Rx Carvedilol [Coreg] 3.125 mg PO BID-WM tab 01/09/18 Rx Docusate [Colace] 100 mg PO BID cap 01/09/18 Rx Insulin Glargine [Lantus Vial] 15 units SC HS vial 01/09/18 Rx Insulin Glargine [Lantus Vial] 15 units SC QAM vial 01/09/18 Rx Multivitamin W/ Minerals 1 tab PO DAILY tab 01/09/18 Rx [Theragran M] Pantoprazole [Protonix] 40 mg PO BID tab 01/09/18 Rx Thiamine 100 mg PO DAILY tab 01/09/18 Rx Vancomycin HCl 1.5 gm IVPB 1100 vial 01/09/18 Rx traMADol HCl [Ultram] 50 mg PO Q6H PRN tab 01/09/18 Rx - History PMHx: HTN, CAD, Epidural Abscess, DMII, EtOH Liver Cirrhosis, UGIB PSHx: Bilateral partial foot amputations, Cholecystectomy FHx:DM Social: 150 pack year history, EtOH missuse, denies drugs - Review of Systems ROS unobtainable: due to endotracheal tube - Vital signs BP: [90/55] HR: [88] RR: [12] Tmax: [99] Pox: [100]% on [Ventilator] Wt: [ 84.60 kg] - Physical Exam -Constitutional: Intubated & Sedated HEENT: MMM Neck: trachea midline Heart: RRR, normal S1/S2, no murmurs/rubs/gallops Lungs: CTAB Abdomen: soft, bowel sounds present Musculoskeletal: normal structure -Neurological: Unable to assess due to intubation Skin: no rash/lesions -Heme/Lymphatic: bruising on lower abdomen FMR H&P: Results - Labs Result Diagrams: 12/04/18 19:55 12/04/18 09:24 Lab results: WBC 6.8 thou/uL (4.8-10.8) 12/03/18 20:40 Hgb 9.4 g/dL (14.0-18.0) L 12/03/18 20:40 Hct 28.1 % (42.0-52.0) L 12/03/18 20:40 MCV 98.9 fL (78.0-98.0) H 12/03/18 20:40 ABG pH 7.30 (7.35-7.45) L 12/03/18 20:02 ABG pCO2 42.2 mmHg (35.0-45.0) 12/03/18 20:02 ABG pO2 448.6 mmHg (> 70.0) H 12/03/18 20:02 FMR H&P: A/P - Problem List (1) Acute metabolic encephalopathy Current Visit: Yes Status: Acute Code(s): G93.41 - METABOLIC ENCEPHALOPATHY (2) Respiratory failure Current Visit: Yes Status: Acute Code(s): J96.90 - RESPIRATORY FAILURE, UNSP , UNSP W HYPOXIA OR HYPERCAPNIA (3) Demand ischemia of myocardium Current Visit: No Status: Acute Code(s): I24.8 - OTHER FORMS OF ACUTE ISCHEMIC HEART DISEASE (4) High anion gap metabolic acidosis Current Visit: Yes Status: Acute Code(s): E87.2 - ACIDOSIS (5) Anemia, macrocytic Current Visit: No Status: Chronic Code(s): D53.9 - NUTRITIONAL ANEMIA, UNSPECIFIED - Plan Pt is a 73 yo M with PMH of DMII, HTN, Osteomyeltis, and Diskitis who presents due to altered mental status. 1. Acute Toxic Metabolic Encephalopathy A&Ox1 yesterday. Intubated in [place]. * CT Head was normal * LP failed in [place], Performed here successfully. Cx, Gram Stain, Cell Count, Enterovirus, HSV, and West Nile pending * Ordered Ammonia, LA, Alcohol Level, RPR * On Vanc, Rocephin, and Amp for coverage 2. Respiratory Failure * Intubated due to altered metal status and agitation * Will work on weaning from vent. 3. Anion Gap Metabolic Acidosis A * pH: 7.30, CO2: 42.2 * Will monitor till gap closure 4. Demand Ischemia Trops were elevated x3 * EKG shows no ST elevation or depression * Will monitor in ICU on tele 5. Macrocytic Anemia Hgb: 11 trended down to 9.8 * Coffee ground emesis from NG tube * Elevated PT & PTT, Low platelets * Will monitor Lines: R IJ Central Line Code Status: Full until we can contact [facility] Prophylaxis: Protonix DVT Prophylaxis: SCDs Dispo: Inpt, expected LOS> 2 days. FMR H&P: Upper Level - Pertinent history 73 yo M w/ pmh of discitits, previous reported spinal epidural abscess, alcoholic cirrhosis presented after from transfer from [place] er. Pt sedated and ventilated and history obtained from ER records. Pt was reportedly found in his home by a friend and was noteably confused and oriented to self only and prior known a&oX4. He was noted to febrile and tachycardic and ct head was performed which was negative. Pt was supposedly agitated and was given ketamine and fentanyl for sedation, intubated. He was given broad spectrum abx including vanc and cefepime. On arrival pt was noted to be hypotensive and as such rt IJ was placed. Pt eventually had successful LP perfomred in ED and studies were sent for further evaluation. - Pertinent findings ROS: As above, unable to obtain PE: Gen: Febrile, hypotensive, tachycardic, intubated and sedated HEENT: ET tube in place, trach midline CV: Tachycardic, regular rhythm Resp: course breath sounds throughout transmitted through et tube otherwise clear, on vent Abd: soft ntnd bsX4 Neuro: sedated - Plan Date/Time: 12/03/182109 IChamp DO, have evaluated this patient and agree with findings/ plan as outlined by internal corrosion specialist resident. Pertinent changes/additions are listed here. 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 Anion Gap Metabolic Acidosis - gap mild @ 17 - fluid resuscitation and trend 5) Elevated troponins - 2/2 demand ischemia from sepsis - IVF resuscitate and pressors as indicated to maintain MAP >65 6) Macrocytic anemia: - 2/2 alcohol abuse - pt does have coffee ground emesis from OG tube, as ssuch will trend h/h. - Transfuse if <7/21 - monitor GI Prophylaxis: Protonix DVT Prophylaxis: SCDs (thrombocytopenia with evidence of GI bleed) Dispo: Guarded, admit to ICU and cont workup for encephalopathy and respiratory failure. Cultures pending. Addendum - Attending - Attending Attestation Date/Time: 12/04/182006 I personally evaluated the patient and discussed the management with Dr. Hancock at time of admission. LP performed at time fo admission, see separate note. I agree with the History, Examination, Assessment and Plan documented above with any addition or exceptions noted below.
[2018-12-03 21:33] LABS: CKMB 2.2 ng/mL (0-6.6)
[2018-12-03] MEDS ORDERED: Lorazepam 2 MG/ML VIAL ONE (22:22)
[2018-12-03] MEDS ORDERED: Ondansetron PF 4 MG/2 ML Vial IVP PRN (23:03)
[2018-12-03] MEDS ORDERED: Norepinephrine 8 MG/0.9% NS 250 ML IVPB PRN (23:07)
[2018-12-03] MEDS ORDERED: Ventilator Sedation Protocol 1 EACH FS ONE (23:07)
[2018-12-03] MEDS ORDERED: CCU Electrolyte Replacement 1 EACH FS ONE (23:07)
[2018-12-03] MEDS ORDERED: CCU Electrolyte Replacement 1 EACH IVPB ONE (23:07)
--- NOTE | 2018-12-03 23:13 | RAD ---
XR Chest 1 View Portable HISTORY: Central line placement COMPARISON: Earlier exam of the same day. FINDINGS: A right central line is been placed. Catheter tip overlies the superior vena cava. No signs of pneumothorax. No other interval change in the appearance of the chest. IMPRESSION: Placement of a right-sided central line. No signs of pneumothorax.
[2018-12-03] MEDS ORDERED: Ventilator Sedation Protocol 1 EACH FS SCH (23:15)
--- NOTE | 2018-12-03 23:16 | PDOC.OP ---
Operative Note - Operative Note Operative Note: OP Note for diagnostic lumbar puncture DOP: 12/03/2018 Physician: Devon Hancock MD and Alyse Diehl MD Dx: Mental Status change, Fever Complications: None EBL: <5 ml Findings: CSF obtained and sent to Lab Details: Patient is sedated and ventilated with ET tube. Consent unable to be obtained form patient adn no surrogate decision maker available. Benefit of LP for work up of mental status change and critical condition clear. Minimal risk. With help from nurses, patient was turned to his left side. Hips flexed. Sterile procedure employed. Betadyne utilized. Sterile field created. LP attempt first made at level of superior iliac crest. Ganga blood encountered so needle removed. Attempt then made one lumber level below resulting in a dry tap. Then attempt made at level above first attempt with successful acquisition of CSF. 4 tubes collected with 1ml each, then needle removed. Bandaid placed. Patient tolerated well.
[2018-12-03] MEDS ORDERED: Fentanyl BOLUS 250 ML IVPB PRN (23:17)
[2018-12-03] MEDS ORDERED: Propofol BOLUS 1,000 MG/100 ML VIAL IV PRN (23:17)
[2018-12-03] MEDS ORDERED: Morphine 2 MG/ML SYRINGE SLOW IVP PRN (23:17)
[2018-12-03] MEDS ORDERED: Norepinephrine 8 MG in Dextrose 5% in Water 242 ML IVPB PRN (23:19)
[2018-12-03] MEDS ORDERED: Magnesium 2 GM/50 ML 2 GM in Premix Bag 1 BAG IVPB PRN (23:23)
[2018-12-03] MEDS ORDERED: CCU ELECTROLYTE REPLACEMENT PROTOCOL FS PRN (23:23)
[2018-12-03] MEDS ORDERED: Magnesium Oxide 400 MG TAB PO PRN ×2 (23:23)
[2018-12-03] MEDS ORDERED: Potassium Chloride 40 MEQ in Premix Bag 1 BAG IVPB PRN (23:23)
[2018-12-03] MEDS ORDERED: Potassium Phosphate 15 MMOL in Sodium Chloride 0.9% 250 ML 250 ML IV PRN (23:23)
[2018-12-03] MEDS ORDERED: Potassium Phosphate 9 MMOL in Sodium Chloride 0.9% 100 ML IVPB PRN (23:23)
[2018-12-03] MEDS ORDERED: Potassium Chloride 20 MEQ TAB PO PRN (23:23)
[2018-12-03] MEDS ORDERED: Potassium Chloride 40 MEQ in Sodium Chloride 0.9% 250 ML 250 ML IVPB PRN (23:23)
[2018-12-03] MEDS ORDERED: Potassium Phosphate 12 MMOL in Sodium Chloride 0.9% 250 ML 250 ML IV PRN (23:23)
[2018-12-03] MEDS ORDERED: PHOS-NAK 1 PKT PACK PO PRN ×2 (23:23)
[2018-12-03 23:47] LABS: Troponin I 0.149 ng/mL (< 0.028)
[2018-12-04 00:03] LABS: Syphilis Antibody Nonreactive (Nonreactive); Syphilis Antibody Index 0.07 S/CO (<1.00 Non-Reactive)
[2018-12-04] MEDS: Propofol 1,000 MG/100 ML VIAL IV PRN ×3 (00:06→17:40)
[2018-12-04] MEDS: Ampicillin 2 GM in Sodium Chloride 0.9% 100 ML IVPB SCH ×4 (00:07→17:38)
[2018-12-04] MEDS: Lactated Ringer's 1,000 ML IV SCH ×4 (00:07→23:47)
[2018-12-04 00:18] LABS: CSF Source CSF; Clarity Clear (Clear); RBC Count - Manual 137 /cumm (None Seen); Tube # 3; WBC/NonHematics Count - Manual 4 /cumm (0-5)
[2018-12-04 00:25] LABS: CSF, Glucose 175 mg/dl (40-70); CSF, Protein 73 mg/dL (15-40)
[2018-12-04] MEDS: cefTRIAXone\\ROCEPHIN 2 GM in Sodium Chloride 0.9% 100 ML IVPB SCH ×2 (01:28→10:59)
[2018-12-04 01:29] LABS: Hemoglobin 9.1 g/dL (14.0-18.0); Mean Corpuscular HGB CONC 33.5 g/dL (32.0-36.0); Mean Corpuscular Hemoglobin 32.8 pg (27.0-31.0); Mean Corpuscular Volume 97.8 fL (78.0-98.0); Mean Platelet Volume 8.4 fL (7.4-10.4); Platelet Count 83 thou/uL (130-400); RBC Distribution Width 15.4 % (11.5-14.5); Red Blood Cell (RBC) Count 2.78 mill/uL (4.70-6.10); White Blood Cell (WBC) Count 6.7 thou/uL (4.8-10.8)
[2018-12-04] MEDS: Lorazepam 2 MG/ML VIAL SLOW IVP PRN (01:30)
[2018-12-04] MEDS: Acetaminophen 325 MG Suppository PR PRN ×3 (01:35→22:30)
[2018-12-04 02:47] LABS: #Lymphocytes 0.7 thou/uL (1.20-3.40); #Monocytes 0.5 thou/uL (0.11-0.59); %Basophils 0.2 % (0.0-1.0); %Eosinophils 0.1 % (0.0-10.0); %Lymphocytes 10.4 % (21.0-51.0); %Monocytes 8.2 % (0.0-10.0); %Neutrophils 81.1 % (42.0-75.0); Hemoglobin 8.8 g/dL (14.0-18.0); Mean Corpuscular HGB CONC 33.5 g/dL (32.0-36.0); Mean Corpuscular Hemoglobin 33.3 pg (27.0-31.0); Mean Corpuscular Volume 99.3 fL (78.0-98.0); Mean Platelet Volume 8.7 fL (7.4-10.4); Platelet Count 86 thou/uL (130-400); RBC Distribution Width 15.2 % (11.5-14.5); Red Blood Cell (RBC) Count 2.66 mill/uL (4.70-6.10); White Blood Cell (WBC) Count 6.2 thou/uL (4.8-10.8)
[2018-12-04 03:04] LABS: Troponin I 0.213 ng/mL (< 0.028)
[2018-12-04 03:08] LABS: ALT (SGPT) 7 U/L (8-55); AST (SGOT) 16 U/L (5-34); Albumin 2.7 g/dL (3.4-4.8); Alkaline Phosphatase 63 U/L (40-150); Anion Gap 11 mmol/L (10-20); BUN (Urea Nitrogen) 18 mg/dL (8.4-25.7); Bilirubin, Total 0.2 mg/dL (0.2-1.2); Calc. Creatinine Clearance 67 mL/min (70-130); Calcium 7.6 mg/dL (7.8-10.44); Carbon Dioxide 21 mmol/L (23-31); Chloride 107 mmol/L (98-107); Estimated GFR-MDRD 61; Globulin 2.8 g/dL (2.4-3.5); Glucose 250 mg/dL (83-110); Potassium 3.9 mmol/L (3.5-5.1); Protein, Total 5.5 g/dL (5.8-8.1); Sodium 135 mmol/L (136-145)
[2018-12-04] MEDS: fentaNYL Citrate/PF 2,000 MCG in Sodium Chloride 0.9% 60 ML IV SCH ×2 (03:30→21:12)
[2018-12-04] MEDS ORDERED: Vancomycin HCl 1.25 GM in Sodium Chloride 0.9% 250 ML 250 ML IVPB SCH (06:00)
[2018-12-04] MEDS: Vancomycin HCl 1 GM in Premix Bag 1 BAG IVPB SCH ×2 (06:35→18:20)
--- NOTE | 2018-12-04 07:50 | PDOC.FM ---
- Subjective Subjective: Pt is sedated and intubated. No major events since admission. - Objective Vital Signs & Weight: Vital Signs (12 hours) Temp Pulse Resp BP Pulse Ox 12/04/18 07:26 106 H 134/80 12/04/18 06:00 101 F H 12 12/04/18 04:00 16 12/04/18 02:04 106 H 108/66 12/04/18 02:00 14 12/04/18 00:06 124 H 147/81 H 12/03/18 23:40 12 98 Weight Weight 83.9 kg Most Recent Monitor Data Heart Rate from ECG 105 NIBP 124/67 NIBP BP-Mean 86 Respiration from ECG 14 SpO2 100 I&O: 12/03/18 12/04/18 12/05/18 06:59 06:59 06:59 Intake Total 1161.9 54.8 Output Total 445 Balance 716.9 54.8 Result Diagrams: 12/04/18 09:24 12/04/18 09:24 Phys Exam - Physical Examination Constitutional: NAD HEENT: moist MMs Neck: no nodes, supple Respiratory: no wheezing, clear to auscultation bilateral Cardiovascular: RRR, no significant murmur Gastrointestinal: soft, non-tender Musculoskeletal: pulses present sedated Deviation from normal: sedated Skin: no rash, normal turgor Dx/Plan (1) Sepsis Code(s): A41.9 - SEPSIS, UNSPECIFIED ORGANISM Status: Acute (2) UGI bleed Code(s): K92.2 - GASTROINTESTINAL HEMORRHAGE, UNSPECIFIED Status: Acute (3) Afib Code(s): I48.91 - UNSPECIFIED ATRIAL FIBRILLATION Status: Acute (4) Diabetes Code(s): E11.9 - TYPE 2 DIABETES MELLITUS WITHOUT COMPLICATIONS Status: Acute (5) Acute metabolic encephalopathy Code(s): G93.41 - METABOLIC ENCEPHALOPATHY Status: Acute (6) High anion gap metabolic acidosis Code(s): E87.2 - ACIDOSIS Status: Acute (7) Anemia due to acute blood loss Code(s): D62 - ACUTE POSTHEMORRHAGIC ANEMIA Status: Acute (8) Demand ischemia of myocardium Code(s): I24.8 - OTHER FORMS OF ACUTE ISCHEMIC HEART DISEASE Status: Acute - Plan Plan: Pt is a 73 yo M with PMH of Osteomyeltis, and Diskitis who presents due to altered mental status. Sepsis, likely 2/2 spinal osteomyelitis vs. UTI vs. meningitis A- pt meeting sirs criteria at outside ER with elevated HR and fever. LA is 1.6. Pt was hospitalized roughly 1 year ago with lumbar/sacral osteomyelitis and DCd with plans for 6 weeks of Vanc. Pt intubated so it is unknown if he completed this regimen. P- Continue Vanc, Rocephin, and Ampicillin -f/u BCx, UCx, CSF Cx -LR at 125 UGIB A- Pt reportedly had coffee ground emesis after intubation in [place]. Has hx of erosive esophagitis on upper endoscopy 12/2017. Hgb decreased from 11 in [place] to 8.8 this AM. Pt s/p protonix 80mg IV in ED. Pt has OG tube with low intermittent suction. P- Consult GI -Protonix 40mg IV BID -will monitor H/H and for active bleeding Metabolic Encephalopathy A- possibly 2/2 sepsis vs. wernicke encephalopathy vs. intoxication. A&Ox1 prior to presentation and intubation in [place]. CT Head was normal. LP failed in [place], Performed here successfully with mixed results ( elevated protein and glucose, 4 WBCs). Ammonia, Alcohol Level, RPR all WNL. UDS pending P- f/u on Cx, UDS, Gram Stain, Cell Count, Enterovirus, HSV, and West Nile -continue Vanc, Rocephin, and Amp -will re-evaluate mental status after weaning vent/sedation Anion Gap Metabolic Acidosis A- unclear etiology. A pH: 7.30, CO2: 42.2. LA is WNL P- Will monitor till gap closure Paroxysmal atrial fibrillation A- Pt has amiodarone and digoxin listed as home meds from last hospitalization. P- Will restart amiodarone once tolerating PO (half life 25-40 days per pharmacy ) -restart coreg when tolerating PO -will start home dose of digoxin via IV DM2 A- on last DC pt was on lantus 15u BID, currently pt is intubated. BG 250 on presentation P- SSI, hyper/hypoglycemia protocol Demand Ischemia A- Trops were elevated x3. EKG shows no ST elevation or depression P- Will monitor in ICU telemetry Macrocytic Anemia A- Likely multifactoral. With Hx of EtOH abuse B12 deficiency is radha. Pt also has UGIB as above. Hgb: 11 trended down to 8.8. Coffee ground emesis from NG tube. P- Will get B12/folate -otherwise per plan for UGIB listed above COPD -duonebs, home meds HTN -hold home meds Alcohol abuse -ASE protocol, PRN benzos are ordered Hypothyroidism -home meds when pt tolerating PO Depression -home meds when pt tolerating PO CAD -home meds when pt tolerating PO Lines: R IJ Central Line, OG with low intermittent suction Code Status: Full until we can contact [facility] Prophylaxis: Protonix DVT Prophylaxis: SCDs Addendum - Attending - Attending Attestation Date/Time: 12/04/18 0917 I personally evaluated the patient and discussed the management with Dr. Gupta. I agree with the History, Examination, Assessment and Plan documented above with any addition or exceptions noted below. The patient is currently intubated and unable to provide history. LP performed overnight, blood urine and csf cultures pending. Will continue broad spectrum antibiotics. We are unsure of cause of encephalopathy, could be infection, vs alcohol withdrawal vs other causes. ASE protocol in place. He also had coffee- ground emesis. GI is consulted and plans egd this afternoon. Will trend H/H. Repeat CXR. Consult pulm for vent management.
[2018-12-04 08:08] LABS: Actual Bicarbonate (HCO3a) 22.1 mEq/L (22-28); Base Excess (BEa) -2.9 mEq/L (-2.0 to +3.0); CO2 Tension 39.2 mmHg (35.0-45.0); Carboxyhemoglobin (COHb) 1.1 gm% (0.0-3.0); Hemoglobin (Hb) 9.3 g/dL (14.0-18.0); O2 Tension (PaO2) 106.4 mmHg (> 70.0); Potassium - ABG Lab 3.76 mmol/L (3.70-5.30); pH, Arterial 7.37 (7.35-7.45)
[2018-12-04 08:10] LABS: Puncture Site RB
[2018-12-04] MEDS ORDERED: Dextrose 50% Abboject 50 ML SYRINGE SLOW IVP PRN (08:19)
[2018-12-04] MEDS ORDERED: Dextrose 5% in Water 1,000 ML IV PRN (08:19)
[2018-12-04] MEDS ORDERED: Sodium Chloride 0.9% (PF) 10 ML VIAL FS PRN (09:28)
[2018-12-04 09:40] LABS: Hemoglobin 8.9 g/dL (14.0-18.0); Mean Corpuscular HGB CONC 33.6 g/dL (32.0-36.0); Mean Corpuscular Volume 98.3 fL (78.0-98.0); Mean Platelet Volume 8.6 fL (7.4-10.4); Platelet Count 72 thou/uL (130-400); RBC Distribution Width 15.2 % (11.5-14.5); Red Blood Cell (RBC) Count 2.71 mill/uL (4.70-6.10); White Blood Cell (WBC) Count 4.8 thou/uL (4.8-10.8)
[2018-12-04] MEDS: Pantoprazole 40 MG VIAL IVP SCH ×2 (09:42→21:09)
[2018-12-04 09:47] LABS: Anion Gap 11 mmol/L (10-20); BUN (Urea Nitrogen) 16 mg/dL (8.4-25.7); Calc. Creatinine Clearance 72 mL/min (70-130); Calcium 7.8 mg/dL (7.8-10.44); Carbon Dioxide 20 mmol/L (23-31); Chloride 108 mmol/L (98-107); Estimated GFR-MDRD 66; Glucose 237 mg/dL (83-110); Potassium 3.8 mmol/L (3.5-5.1); Sodium 135 mmol/L (136-145)
[2018-12-04] MEDS ORDERED: Digoxin 0.5 MG/2 ML AMP SLOW IVP SCH (10:00)
[2018-12-04 10:38] LABS: Folate (Folic Acid) 5.1 ng/mL (7.0-31.4)
[2018-12-04 10:55] LABS: Troponin I 0.331 ng/mL (< 0.028)
[2018-12-04] MEDS: Multivitamins, Adult 10 ML, Folic Acid 1 MG, Thiamine HCl 100 MG in Dextrose 5 %-0.45 %... IV SCH (10:58)
[2018-12-04] MEDS: HumaLOG 300 UNITS/3 ML VIAL SC PRN ×3 (11:09→21:09)
--- NOTE | 2018-12-04 11:10 | RAD ---
PORTABLE CHEST 1 VIEW: DATE: 12/04/2018. TIME: 9:45 a.m. HISTORY: Respiratory failure. FINDINGS: Comparison is made with the exam of previous day. Endotracheal tube and right-sided subclavian central line are again seen. The heart size is normal. Aortic valve stent is again seen. No lobar consolidation, pneumothoraces, or pleural effusions are identified. POS: TPC
[2018-12-04] MEDS ORDERED: Acetaminophen 650 MG Suppository PR SCH (12:45)
[2018-12-04 14:11] LABS: Hemoglobin 8.5 g/dL (14.0-18.0); Mean Corpuscular HGB CONC 33.9 g/dL (32.0-36.0); Mean Corpuscular Hemoglobin 33.6 pg (27.0-31.0); Mean Corpuscular Volume 99.4 fL (78.0-98.0); Mean Platelet Volume 9.2 fL (7.4-10.4); Platelet Count 67 thou/uL (130-400); RBC Distribution Width 15.2 % (11.5-14.5); Red Blood Cell (RBC) Count 2.53 mill/uL (4.70-6.10); White Blood Cell (WBC) Count 4.1 thou/uL (4.8-10.8)
[2018-12-04 14:26] LABS: Amphetamine Not Detected (NotDetected); Barbiturates Screen Not Detected (NotDetected); Benzodiazepine Screen Detected (NotDetected); Cocaine Metabolite Screen Not Detected (NotDetected); Medtox Control Line Valid? VALID (VALID); Medtox Reader # READER 4; Methadone Not Detected (NotDetected); Methamphetamine Not Detected (NotDetected); Opiate Screen Not Detected (NotDetected); Oxycodone Screen Not Detected (NotDetected); Phencyclidine (PCP) Not Detected (NotDetected); THC/Cannabinoid Screen Not Detected (NotDetected); Tricyclic Screen Not Detected (NotDetected)
[2018-12-04 14:52] LABS: CKMB 2.1 ng/mL (0-6.6)
[2018-12-04 20:05] LABS: Hemoglobin 8.8 g/dL (14.0-18.0)
[2018-12-04] MEDS: Cefepime 1 GM in Sodium Chloride 0.9% 100 ML IVPB SCH (21:33)
--- NOTE | 2018-12-05 00:28 | CON ---
DATE OF CONSULTATION: 12/04/2018 HISTORY OF PRESENT ILLNESS: John Cruz is a pleasant 73-year-old male who was admitted to [facility]. Apparently, he was transferred unresponsive and intubated. He had a lumbar puncture, which showed only 4 white blood cells, but he did have an elevated CSF protein. He was febrile prior to admission. He has been started on broad antimicrobial therapy. PAST MEDICAL HISTORY: 1. Remarkable for an epidural abscess in the past. 2. History of hypertension. 3. History of coronary artery disease. 4. Diabetes. 5. Cirrhosis, poorly secondary to heavy alcohol use. 6. History of an upper GI bleed. 7. History of bilateral partial foot amputations. 8. History of cholecystectomy. SOCIAL HISTORY: Remarkable for 50 pack-year history of smoking and alcohol heavy use. No history of drug use reported. FAMILY HISTORY: Non contributory. REVIEW OF SYSTEMS: Not obtainable. He is intubated, appears comfortable. He is sedated for mechanical ventilation. OBJECTIVE: GENERAL: He was transferred unresponsive and intubated. VITAL SIGNS: Heart rate is in 80s, blood pressure is 112/54, respiratory rates in the teens. Intake and output, positive 716. HEAD: Unremarkable. NECK: Unremarkable. LUNGS: Clear. HEART: Regular rhythm. ABDOMEN: Soft and nontender. EXTREMITIES: Without clubbing, cyanosis, or edema. LABORATORY DATA: White count 4.1, hemoglobin 8.5, platelets 67,000. Sodium 135 , potassium 3.8, chloride 108, bicarb 20, BUN 16, and creatinine 1.09. PH 7.37, CO2 of 39, pO2 of 106. Chest x-ray was reviewed, it shows no infiltrates. Microbiology was reviewed. Blood cultures from yesterday are negative so far. CSF cultures negative. Urine cultures positive for Proteus. IMPRESSION: Respiratory failure secondary to altered mental status. Altered mental status of unclear etiology with an elevated CSF protein. There is no history of seizures being reported. I suppose he could have a viral encephalitis. He does have Proteus growing out of his urine, but I suspect this is an incidental finding. We will continue supportive care and empiric antimicrobial therapy as well as ventilatory support. I will be happy to follow the other physicians caring for him. This is a 70-minute consult, with greater than 50% of the time was spent on the unit coordinating care. Job ID: [id number] [facility]
--- NOTE | 2018-12-05 02:45 | CON ---
DATE OF CONSULTATION: REASON FOR CONSULTATION: Fever, altered mental status. HISTORY OF PRESENT ILLNESS: A 73-year-old who is known to me from prior visits. I last saw him in January 07 when he presented with a history of coronary artery disease, type 2 diabetes and cirrhosis due to alcoholism. 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 He was treated with protracted vancomycin continued until December 11, 2017. After the transition to oral rifampin and minocycline, he developed esophageal complications from the oral antimicrobials with erosive esophagitis. He still has quite a bit of lower back pain and repeat MRI demonstrated progression of the destructive changes at L5-S1. A cervical spine study showed C6-7 diskitis and osteomyelitis with some improvement in the thoracic spine study showed no evidence of any diskitis or osteomyelitis although he could have a possible splenic abscess. I followed him in clinic on January 2018. At that time, he still had pain, although improved and had radiculopathy in lower extremities. He is supposed to complete vancomycin on February 2018. I saw him in March. The pain was much improved , pretty much gone and he had been on minocycline, which it was felt that he should continue for another 6 months. The CRP at that time was less than 0.5 and a creatinine was 1.21. White cell count was within normal limits. He did have a normocytic anemia. After that, I have not seen the patient and now he presents with altered mental status. He was found by a friend in his home. Apparently, the son with whom he lives, had travelled to another state. He was brought to the [place] by EMS, found tachycardic with fever of 103, was given broad- spectrum coverage. Head CT did not show any acute findings and the initial exam was not particularly remarkable except for some bruising in the skin of lower abdomen. The initial lab data with a white cell count of 6.8, hemoglobin 9.4, MCV 98, platelets 98,000 with 82% neutrophils. Chemistry with a creatinine of 1.09. AST was 16, ALT 7, alkaline phosphatase is 63, albumin 2.7. CSF was obtained and his WBC count was 4 with a glucose of 175 and a protein of 73. The microbiology data thus far, we have pending 2 sets of blood cultures, which had been negative to up-to-date. Currently, Mr. Cruz is intubated. His eyes are open. He seems to be able to establish eye contact. I was not able to determine, if he followed commands. He has not had diarrhea and has no areas of skin breakdown as noted in the exam below. PAST MEDICAL HISTORY: Includes hypertension, coronary disease, alcoholism, liver cirrhosis, extensive MRSA spine infection in the C-spine and lumbosacral spine and evidence of endocarditis and septic pulmonary involvement as well as splenic involvement with possible abscess, bilateral previous foot amputations, cholecystectomy. FAMILY HISTORY: Diabetes type 2. SOCIAL HISTORY: Current smoker and history of EtOH abuse. CURRENT MEDICATIONS: 1. Tylenol. 2. DuoNeb. 3. Ampicillin. 4. Ceftriaxone. 5. Digoxin. 6. Magnesium. 7. Vancomycin. PHYSICAL EXAMINATION: SKIN: Shows multiple areas of bruising in the extremities and abdomen. He has a Viramontes catheter in place and peripheral IV access. HEENT: Ocular movements are conjugate. Sclerae white. Pupils are equal. Oral cavity with quite numerous missing teeth, oral tracheal intubation. LUNGS: With symmetric air entry. A few crackles in the dependent areas. HEART: S1 and S2. Diminished sounds. No obvious murmurs. Regular rate. ABDOMEN: Not distended, may be moderately distended. No guarding. No organomegaly or ascites. No joint inflammatory activity. Pulses are 1+ in dorsalis pedis. I could not check his mobility, seems to be able to move slightly.the upper and lower extremities. LABORATORY DATA: Sodium 135, creatinine 1.09. IMAGING: Include a chest x-ray with endotracheal tube and right-sided subclavian central line. Heart size is normal. Previous echocardiogram from November 06 with no obvious vegetation. ASSESSMENT: 1. Alcoholism history. 2. Liver cirrhosis. 3. Hypertension. 4. Type 2 diabetes. 5. Methicillin-resistant Staphylococcus aureus bacteremia associated with cervical spine and lumbosacral spine infection, which required protracted treatment with IV vancomycin and then subsequent transition to oral minocycline and rifampin. He had to have the course of vancomycin repeated in view of the worsening of the findings in the lumbosacral spine MRI and then improvement in resolution of pain with normalization of inflammatory markers, but no evidence of sepsis syndrome, toxic metabolic encephalopathy. The spinal fluid findings rule out bacterial meningitis. DISCUSSION: The differential diagnosis includes recrudescence of his previous spine infection from MRSA, an alterrnate pathogen with bacteremia associated with his immunodysfunction secondary to liver cirrhosis and the possibility of persistence of a splenic abscess. We will discontinue ampicillin and switch him to cefepime, continue vancomycin. CT of abdomen and pelvis with contrast and repeat MRI of C-spine and lumbosacral spine. Meningitis appears unlikely. Job ID: [id number] [id number]
[2018-12-05] MEDS: Acetaminophen 325 MG Suppository PR PRN (03:14)
[2018-12-05] MEDS: Propofol 1,000 MG/100 ML VIAL IV PRN ×2 (04:02→14:01)
[2018-12-05 04:44] LABS: #Lymphocytes 0.6 thou/uL (1.20-3.40); #Monocytes 0.6 thou/uL (0.11-0.59); #Neutrophils 2.7 thou/uL (1.40-6.50); %Eosinophils 0.3 % (0.0-10.0); %Lymphocytes 16.6 % (21.0-51.0); %Monocytes 14.2 % (0.0-10.0); %Neutrophils 68.9 % (42.0-75.0); Hemoglobin 8.5 g/dL (14.0-18.0); Mean Corpuscular HGB CONC 34.1 g/dL (32.0-36.0); Mean Corpuscular Hemoglobin 33.7 pg (27.0-31.0); Mean Corpuscular Volume 98.8 fL (78.0-98.0); Mean Platelet Volume 9.9 fL (7.4-10.4); Platelet Count 60 thou/uL (130-400); RBC Distribution Width 15.1 % (11.5-14.5); Red Blood Cell (RBC) Count 2.53 mill/uL (4.70-6.10); White Blood Cell (WBC) Count 3.9 thou/uL (4.8-10.8)
[2018-12-05 04:46] LABS: ALT (SGPT) 10 U/L (8-55); AST (SGOT) 27 U/L (5-34); Albumin 2.5 g/dL (3.4-4.8); Alkaline Phosphatase 74 U/L (40-150); Anion Gap 10 mmol/L (10-20); BUN (Urea Nitrogen) 11 mg/dL (8.4-25.7); Bilirubin, Total 0.3 mg/dL (0.2-1.2); Calc. Creatinine Clearance 78 mL/min (70-130); Calcium 7.9 mg/dL (7.8-10.44); Carbon Dioxide 20 mmol/L (23-31); Chloride 106 mmol/L (98-107); Estimated GFR-MDRD 69; Globulin 2.7 g/dL (2.4-3.5); Glucose 166 mg/dL (83-110); Potassium 3.4 mmol/L (3.5-5.1); Protein, Total 5.2 g/dL (5.8-8.1); Sodium 133 mmol/L (136-145)
[2018-12-05] MEDS: HumaLOG 300 UNITS/3 ML VIAL SC PRN ×4 (05:37→20:41)
[2018-12-05] MEDS: Cefepime 1 GM in Sodium Chloride 0.9% 100 ML IVPB SCH ×2 (05:37→14:14)
[2018-12-05 05:40] LABS: Vancomycin, Trough 15.3 ug/mL
[2018-12-05] MEDS: Vancomycin HCl 1 GM in Premix Bag 1 BAG IVPB SCH (06:10)
--- NOTE | 2018-12-05 06:38 | PDOC.FM ---
- Subjective Subjective: Pt intubated, seen while on sedation vacation. He had spontaneous eye mvmt and follows commands. No acute events over night. - Objective Vital Signs & Weight: Vital Signs (12 hours) Temp Pulse Resp BP Pulse Ox 12/05/18 06:00 99.9 F H 13 12/05/18 04:00 101.1 F H 13 153/118 H 12/05/18 03:00 103 F H 12/05/18 02:24 129 H 139/65 12/05/18 02:00 103 F H 14 12/05/18 00:00 102.4 F H 14 12/04/18 23:28 146/71 H 12/04/18 22:11 107 H 146/80 H 12/04/18 22:00 103.1 F H 16 12/04/18 20:00 16 160/77 H 98 12/04/18 19:00 102.4 F H Weight Admit Weight 83.9 kg Weight 87.7 kg Most Recent Monitor Data Heart Rate from ECG 92 NIBP 126/61 NIBP BP-Mean 82 Respiration from ECG 12 SpO2 100 I&O: 12/03/18 12/04/18 12/05/18 06:59 06:59 06:59 Intake Total 1161.9 4676.3 Output Total 445 2403 Balance 716.9 2273.3 Result Diagrams: 12/05/18 04:00 12/05/18 04:00 Phys Exam - Physical Examination Constitutional: NAD HEENT: moist MMs Neck: no nodes, supple Respiratory: no wheezing, clear to auscultation bilateral Cardiovascular: RRR, no significant murmur Gastrointestinal: non-tender Musculoskeletal: pulses present Neurological: moves all 4 limbs Skin: no rash, normal turgor Dx/Plan (1) Sepsis Code(s): A41.9 - SEPSIS, UNSPECIFIED ORGANISM Status: Acute (2) UGI bleed Code(s): K92.2 - GASTROINTESTINAL HEMORRHAGE, UNSPECIFIED Status: Acute (3) Afib Code(s): I48.91 - UNSPECIFIED ATRIAL FIBRILLATION Status: Acute (4) Diabetes Code(s): E11.9 - TYPE 2 DIABETES MELLITUS WITHOUT COMPLICATIONS Status: Acute (5) Acute metabolic encephalopathy Code(s): G93.41 - METABOLIC ENCEPHALOPATHY Status: Acute (6) High anion gap metabolic acidosis Code(s): E87.2 - ACIDOSIS Status: Acute (7) Anemia due to acute blood loss Code(s): D62 - ACUTE POSTHEMORRHAGIC ANEMIA Status: Acute (8) Demand ischemia of myocardium Code(s): I24.8 - OTHER FORMS OF ACUTE ISCHEMIC HEART DISEASE Status: Acute - Plan Plan: Pt is a 73 yo M with PMH of Osteomyeltis, and Diskitis who presents due to altered mental status. Sepsis, likely 2/2 spinal osteomyelitis vs. other unknown source A- pt meeting sirs criteria at outside ER with elevated HR and fever. UA growing presumptive proteus but is less than 5K units. CT abdomen shows resolution of splenic abscess (seen last hospitalization). Pt was hospitalized roughly 1 year ago with lumbar/sacral osteomyelitis and DCd with plans for 6 weeks of Vanc. Pt intubated so it is unknown if he completed this regimen. ID consulted, appreciate recommendations greatly. P- Continue Vanc and Cefepime -MRI Lumbar and cervical spine today -f/u BCx, UCx, CSF Cx -LR at 125 UGIB A- Pt reportedly had coffee ground emesis after intubation in [place]. Has hx of erosive esophagitis on upper endoscopy 12/2017. Hgb decreased from 11 in [place] to 8.8 on admission here. since then H/H stable. Pt s/p protonix 80mg IV in ED. Pt has OG tube with low intermittent suction. P- Consult GI -Protonix 40mg IV BID -will monitor H/H and for active bleeding Metabolic Encephalopathy A- possibly 2/2 sepsis vs. wernicke encephalopathy vs. intoxication. A&Ox1 prior to presentation and intubation in [place]. CT Head was normal. LP failed in [place], Performed here successfully with mixed results ( elevated protein and glucose, 4 WBCs). Ammonia, Alcohol Level, RPR all WNL. UDS negative. P- f/u on Enterovirus, HSV, and West Nile -continue ABX -will re-evaluate mental status after weaning vent/sedation Respiratory failure 2/2 mental status A- Presented with AMS in [place], pt received some sedation for LP and agitation and required intubation to protect airway P- Will possibly be able to extubate after MRI (requiring sedation/paralysis) Paroxysmal atrial fibrillation A- Pt has amiodarone and digoxin listed as home meds from last hospitalization. P- Will restart amiodarone once tolerating PO (half life 25-40 days per pharmacy ) -restart coreg when tolerating PO -will start home dose of digoxin via IV DM2 A- on last DC pt was on lantus 15u BID, currently pt is intubated. BG 250 on presentation P- SSI, hyper/hypoglycemia protocol Demand Ischemia A- Trops were elevated x4, increased but then decreased. EKG shows no ST elevation or depression P- Will monitor in ICU telemetry Macrocytic Anemia A- Likely multifactoral. With Hx of EtOH abuse B12 deficiency is likley. Pt also has UGIB as above. Hgb: 11 trended down to 8.8. Coffee ground emesis from NG tube. Folate is decreased P- supplement folate after PO intake tolerated -otherwise per plan for UGIB listed above COPD -duonebs, home meds HTN -hold home meds Alcohol abuse -ASE protocol, PRN benzos are ordered Hypothyroidism -home meds when pt tolerating PO Depression -home meds when pt tolerating PO CAD -home meds when pt tolerating PO Anion Gap Metabolic Acidosis -resolved CODE: FULL. Spoke with Son (Hosea, ) who thinks his father may have an out of hospital DNR but is unsure of preferences regarding intubation. This morning he states he is overall unsure and unable to make him DNR or DNI at this time. He wishes to be given some time to consider this. Lines: R IJ Central Line, OG with low intermittent suction GI Prophylaxis: Protonix DVT Prophylaxis: SCDs Addendum - Attending - Attending Attestation Date/Time: 12/05/18 0622 I personally evaluated the patient and discussed the management with Dr. Gupta. I agree with the History, Examination, Assessment and Plan documented above with any addition or exceptions noted below. The patient remains intubated. Plan for EGD today. Weaning vent per pulm. Cultures pending. Appreciate consultants recs. MRI of spine today. CT abd/ pelv showed no acute source for infection.
[2018-12-05] MEDS: Lactated Ringer's 1,000 ML IV SCH ×2 (06:39→17:37)
[2018-12-05 07:17] LABS: Actual Bicarbonate (HCO3a) 21.5 mEq/L (22-28); Base Excess (BEa) -2.7 mEq/L (-2.0 to +3.0); CO2 Tension 34.6 mmHg (35.0-45.0); Calcium, Ionized 1.13 mmol/L (1.12-1.30); Carboxyhemoglobin (COHb) 0.5 gm% (0.0-3.0); Hemoglobin (Hb) 9.6 g/dL (14.0-18.0); O2 Tension (PaO2) 102.9 mmHg (> 70.0); Potassium - ABG Lab 3.58 mmol/L (3.70-5.30); pH, Arterial 7.41 (7.35-7.45)
[2018-12-05 07:18] LABS: Puncture Site RR
[2018-12-05] MEDS ORDERED: Vecuronium 10 MG VIAL ONE (07:22)
--- NOTE | 2018-12-05 07:50 | CT ---
CT OF THE ABDOMEN AND PELVIS WITH IV CONTRAST: INDICATION: History of sepsis with a history of splenic abscess and cholecystectomy. COMPARISON: Prior exam dated 01/01/2018. FINDINGS: There is mild bibasilar atelectasis. There is cirrhotic morphology of the liver. No definite focal splenic lesion is evident. Previously seen cystic abnormalities in the spleen have resolved. Perinephric edema is present which is nonspecific. No hydronephrosis is evident. There are bilatera l renal vascular calcifications. Ectasia of the infrarenal abdominal aorta is stable measuring 2.8 cm. 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 Wall thickening involving the bladder which his slightly more accentuated than the prior exam possibl y related to decompression from a Viramontes catheter. The prostate is enlarged. The appendix is not definitely visualized. The small bowel is normal caliber. There is a mild amoun t of retained stool within the colon. There is a stable compression abnormality of T12. Advanced de generative disk disease at L5-S1 is stable. There is diffuse osteopenia. IMPRESSION: 1. Resolution of the previously seen splenic abscess. 2. Stable cirrhotic morphology of the liver. 3. Nonspecific perinephric soft tissue edema. 4. Wall thickening involving the bladder, slightly accentuated due to the extent of bladder compress ion from a Viramontes catheter. Cystitis is not excluded. Recommend correlation with the urinary laborat ories. 5. 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 POS:
[2018-12-05] MEDS: Pantoprazole 40 MG VIAL IVP SCH ×2 (09:06→20:41)
[2018-12-05] MEDS ORDERED: Vecuronium 10 MG VIAL IV PRN (09:15)
[2018-12-05] MEDS: Digoxin 0.5 MG/2 ML AMP SLOW IVP SCH (09:18)
--- NOTE | 2018-12-05 09:41 | CON ---
DATE OF CONSULTATION: 12/04/2018 REASON FOR CONSULTATION: Upper GI bleeding. HISTORY OF PRESENT ILLNESS: Mr. John Cruz is a 73-year-old male, known to me from before. He was seen by me in December 2017 when he was hospitalized with severe back pain and was found to have diskitis and osteomyelitis of the spine. He was on antibiotics for a long time. The patient had an EGD done in December 2017, and was found to have severe erosive esophagitis, hiatal hernia. He was on PPI. The patient is on the ventilator and is sedated. No history could be obtained. No family member available. Apparently, he has a son in [place], we cannot really contact him on telephone. The patient apparently was brought to [facility] ER because of altered mental status and fever and also had some vomiting of blood. Yesterday, he had to be intubated in the ER. The reason for admission was because he was agitated and restless. At the present time, he is having NG tube. The NG tube is actually draining a biliary material. There is no blood or any coffee-ground material seen. He has had no melena. The admitting lab showed mild anemia. CBC on admission, WBC 6800, hemoglobin is 9.4, hematocrit 28.1, MCV 98.9. drifting slowly but not a whole lot. It went down to 9.1 and has been stable around 8.8, 8.9. As mentioned earlier, his NG is draining mostly bilious material and mostly bile in the canister. MEDICAL ILLNESSES: 1. Cardiac arrhythmia. 2. Erosive esophagitis. 3. COPD. 4. . PAST SURGICAL HISTORY: Bilateral partial amputation, EGDs and colonoscopy in the past. SOCIAL HISTORY: History of heavy smoking in the past. . PHYSICAL EXAMINATION: GENERAL: He is sedated. VITAL SIGNS: Actually very stable. His pulse range is anywhere from 105 to 112, BP 160/72. HEENT: Conjunctivae clear. CARDIOVASCULAR: First and second normal. LUNGS: Clear to auscultation. ABDOMEN: Soft. No organomegaly or masses. The NG tube is draining actually bilious material. LABORATORY DATA: His hemoglobin is stable around 8.8 . CLINICAL IMPRESSION: 1. A 73-year-old male with altered mental status and also sepsis. He has had a spinal tap done and results are pending. 2. History of gastrointestinal bleeding, but his hemoglobin is stable . The NG is draining bilious material. There is no family member available to give consent for EGD. Will try to contact the son tomorrow again and plan for EGD. If consent cannot be obtained, may consider to start the tube feeding as his bleeding appears stopped and the NG is actually draining bilious material. Job ID: [id number]
--- NOTE | 2018-12-05 09:52 | PRG ---
DATE OF SERVICE: 12/05/2018 SUBJECTIVE: John Cruz actually awakens. He is in no distress. OBJECTIVE: VITAL SIGNS: Heart rate 92, blood pressure 164/74, respiratory rate is 19. LUNGS: Clear. HEART: Regular rhythm. ABDOMEN: Soft and nontender. EXTREMITIES: Without clubbing, cyanosis, or edema. He is tentatively on the schedule for a spinal MRI. LABORATORY DATA: White count 3.9, hemoglobin 8.5, platelets 60,000. Sodium 133, potassium 3.4, chloride 106, bicarb 20, BUN 11, and creatinine 1.05. PH 7.41, CO2 of 34, PO2 of 102 on 30%. I felt he was a candidate for extubation, but then I was informed that an MRI has been ordered. It maybe difficult for him to stay still with the encephalopathy that was present prior to intubation, so I have recommended that he remain intubated until after the MRI. We can probably begin weaning and extubation afterwards. An order for paralytic will be placed in the event that he needs this while mechanically ventilated in the MRI scanner. CRITICAL CARE TIME: 30 minutes. Job ID: [id number]
[2018-12-05] MEDS: Multivitamins, Adult 10 ML, Folic Acid 1 MG, Thiamine HCl 100 MG in Dextrose 5 %-0.45 %... IV SCH (10:10)
[2018-12-05] MEDS: Lorazepam 2 MG/ML VIAL SLOW IVP PRN (11:39)
--- NOTE | 2018-12-05 11:59 | OP ---
DATE OF PROCEDURE: 12/05/2018 PROCEDURE PERFORMED: Esophagogastroscopy at bedside in ICU. PREOPERATIVE DIAGNOSIS: Gastrointestinal bleeding. SEDATION: IV Diprivan drip. POSTOPERATIVE DIAGNOSES: 1. Liane-Goddard tear at the gastroesophageal junction . 2. At the gastroesophageal junction and distal esophagus, mucosa markedly hyperemic, erythematous, and edematous. 3. Mild gastritis. 4. Normal duodenum. DESCRIPTION OF PROCEDURE: The patient was already on Diprivan drip. He was given 100 mg bolus during the procedure. The patient was placed on his left lateral position. The old G-tube was removed. A Pentax video gastroscope under direct vision passed down the oropharynx, past the GE junction, into the stomach. The patient has severe erosive esophagitis Liane-Goddard tear, mild oozing of blood. Probably cleared this with the NG tube. Also at the GE junction and distal esophagus, mucosa markedly hyperemic and edematous. Retroflexion failed to show any pathology in fundus or cardia. The gastric body, gastric antrum, no pathology seen. The duodenal bulb, descending duodenum, no pathology seen. The stomach decompressed and the scope was removed. RECOMMENDATIONS: 1. Discontinue NG tube. 2. Continue IV fluids. 3. Follow up H and H. 4. Dr. Tru Patton on-call for me and he will probably see the patient tomorrow. Job ID: [id number]
--- NOTE | 2018-12-05 14:30 | MRI ---
MRI CERVICAL SPINE WITH AND WITHOUT CONTRAST: 12/05/18 COMPARISON: 12/10/17. HISTORY: Sepsis. Past medical history of cervical osteomyelitis. TECHNIQUE: Cervical spine MRI is performed with and without intravenous gadolinium administration. Multisequenti al, multiplanar imaging is performed. FINDINGS: There is appropriate T1 marrow signal intensity of the cervical vertebrae. Cervical spine vertebral b kermit height is maintained. There is no evidence of fracture. 3.7 mm of anterolisthesis of C3 upon C4, unchanged. There is near complete fusion of the C6-C7 disc space. Minimal linear enhancement at the d isc space is nonspecific. There is no significant fluid. No significant STIR hyperintensity. Minimal STIR hyperintensity is noted. Remaining cervical vertebrae have appropriate signal intensity. The visualized brain parenchyma, cervicomedullary junction, cervical cord, and the upper thoracic cor d have a normal size and signal intensity. Postcontrast images do not demonstrate any abnormal enhancement with regards to the vertebral bodies. No abnormal enhancement with regards to the visualized brain parenchyma and spinal cord. C2-C3: No significant central canal stenosis. Mild to moderate right foraminal narrowing. Left neural foramen is patent. C3-C4: Broad based disc osteophyte complex abuts the ventral thecal sac. Ventral subarachnoid space i s maintained. No evidence of significant central canal stenosis. Mild to moderate bilateral neural fo raminal narrowing. C4-C5: Broad based disc osteophyte complex with a central component abuts the thecal sac. Mild centra l canal stenosis. Moderate to severe right and moderate left foraminal narrowing. C5-C6: Broad based disc osteophyte complex abuts the thecal sac. Ventral subarachnoid space is mainta ined. No significant mass effect upon the cervical cord. Mild central canal stenosis. Moderate to sev ere right and moderate to severe left foraminal narrowing due to uncovertebral hypertrophy. C6-C7: There appears to be a central osteophyte ridge, abutting the thecal sac. Osteophyte ridge is s imilar to the previous examination. Mild central canal stenosis. Bilaterally, neural foramina are pat ent. C7-T1: No significant central canal stenosis or foraminal narrowing. IMPRESSION: 1. Trace amount of fluid and enhancement at the C6-C7 disc space which has essentially nearly fu sed. No abnormal signal intensity in adjacent vertebrae. Linear fluid and enhancement is of doubtful significance. No evidence of osteomyelitis or discitis in the cervical spine. 2. No evidence of significant phlegmonous change. 3. Degenerative changes of the cervical spine as detailed above. POS: C
--- NOTE | 2018-12-05 14:47 | MRI ---
MRI LUMBAR SPINE WITH AND WITHOUT CONTRAST: 12/05/18 INDICATIONS: Sepsis. History of L5-S1 discitis/osteomyelitis. COMPARISON: Comparison made to MRI lumbar spine 01/06/18. That exam revealed edema enhancement and reactive changes at L5-S1 consistent with discitis/osteomyel itis. Diffuse edema and enhancement of the L5 and S1 vertebra were present at that time with fluid an d enhancement within the disc space. Today's findings: At L5-S1, there is loss of disc space with irregularity of the end plates at L5-S1. There is mild com pression of the L5 vertebra which appears to represent sequela from the previous osteomyelitis. Sligh t retropulsion of the posterior inferior corner of L1 is present along with the diffuse disc bulge an d slight posterolisthesis which compresses the thecal sac at L5-S1. There is mild edema and enhanceme nt along the end plates at L5-S1. This is probably on the basis of chronic degenerative changes from the previous infection. No significant enhancement within the disc space. No evidence of significant vertebral body enhancement or edema seen today. The other lumbar vertebrae maintain height and alignment and the other disc spaces are preserved. At L1-2, no significant disc bulge. No central canal or foraminal stenosis. At L2-3, mild disc bulge. Facet hypertrophy. Mild central canal stenosis. At L3-4, mild diffuse disc bulge. Prominent facet hypertrophy. Moderate central canal stenosis. At L4-5, diffuse disc bulge. Facet arthrosis and hypertrophy. Moderate central canal stenosis. At L5-S1, posterior retropulsion and disc bulge as described above compressing the thecal sac. Mild c entral canal stenosis. Bilateral foraminal stenosis is present. IMPRESSION: 1. There are changes at L5-S1 which appear to represent sequela from the previous osteomyelitis/ discitis. There is compression of L5 with slight retropulsion. There is loss of disc space with irreg ularity of the end plates. Degenerative end plate changes are now present. Mild enhancement along th e end plates is present today. Findings are felt to most likely represent changes from the prior infe ction. No significant vertebral body edema is seen today and no enhancement within the disc space. If there is concern of recurrent infection at this site clinically, recommend short term follow-up to a ssess interval change at this level. 2. Central canal stenosis at L2-3, L3-4 and L4-5 levels as described above. POS: TPC
--- NOTE | 2018-12-05 17:09 | PRG ---
DATE OF SERVICE: 12/05/2018 SUBJECTIVE: The patient is intubated. Follows commands. No diarrhea. OBJECTIVE: VITAL SIGNS: T-max 103, blood pressure 110/55, pulse 87. HEENT: Orotracheal intubation. Ocular movements are conjugate. LUNGS: With coarse breath sounds. HEART: S1 and S2 without murmurs. ABDOMEN: Soft, indwelling Viramontes catheter. I's and O's are positive yesterday and negative thus far today. LABORATORY DATA: White cell count 3.9, hemoglobin 8.5, platelets 60,000, 68% neutrophils. Sodium 133, creatinine 1.05. Liver profile normal. Albumin 2.5. Urine culture with Proteus mirabilis, less than 5000 CFUs. Blood cultures thus far no growth. The patient had an EGD with mild gastritis and Liane-Goddard tear at the GE junction. Lumbar cervical spine showed resolution of the prior infection in the areas, the abdomen and pelvis CT with cirrhotic liver morphology, resolution of the prior splenic abscess and wall thickening of the bladder slightly accentuated. ASSESSMENT AND DISCUSSION: Alcoholism with cirrhosis, hypertension, diabetes type 2, prior MRSA bacteremia with cervical and lumbosacral spine infection and splenic abscess, which have resolved as shown by the imaging studies performed yesterday, possible cystitis with toxic metabolic encephalopathy and fever. He is currently on cefepime and vancomycin, and we will go ahead and switch him to meropenem. Job ID: [id number]
[2018-12-05] MEDS ORDERED: PROPOFOL 200 MG/20 ML VIAL IV SCH (17:15)
[2018-12-05] MEDS: fentaNYL Citrate/PF 2,000 MCG in Sodium Chloride 0.9% 60 ML IV SCH (18:31)
[2018-12-05] MEDS: MEROPENEM 1 GM/50 ML 1 GM in Premix Bag 1 BAG IVPB SCH (21:59)
[2018-12-06] MEDS: Propofol 1,000 MG/100 ML VIAL IV PRN (00:48)
[2018-12-06] MEDS: Lorazepam 2 MG/ML VIAL SLOW IVP PRN (00:51)
[2018-12-06 03:55] LABS: #Eosinphils 0.2 thou/uL (0.0-0.7); #Lymphocytes 0.8 thou/uL (1.20-3.40); #Monocytes 0.5 thou/uL (0.11-0.59); #Neutrophils 3.1 thou/uL (1.40-6.50); %Basophils 0.4 % (0.0-1.0); %Eosinophils 4.5 % (0.0-10.0); %Lymphocytes 16.6 % (21.0-51.0); %Monocytes 11.2 % (0.0-10.0); %Neutrophils 67.3 % (42.0-75.0); Hemoglobin 8.7 g/dL (14.0-18.0); Mean Corpuscular HGB CONC 34.2 g/dL (32.0-36.0); Mean Corpuscular Hemoglobin 33.8 pg (27.0-31.0); Mean Corpuscular Volume 98.7 fL (78.0-98.0); Mean Platelet Volume 9.7 fL (7.4-10.4); Platelet Count 69 thou/uL (130-400); RBC Distribution Width 15.2 % (11.5-14.5); Red Blood Cell (RBC) Count 2.58 mill/uL (4.70-6.10); White Blood Cell (WBC) Count 4.6 thou/uL (4.8-10.8)
[2018-12-06 04:05] LABS: ALT (SGPT) 14 U/L (8-55); AST (SGOT) 25 U/L (5-34); Albumin 2.6 g/dL (3.4-4.8); Alkaline Phosphatase 89 U/L (40-150); Anion Gap 9 mmol/L (10-20); BUN (Urea Nitrogen) 10 mg/dL (8.4-25.7); Bilirubin, Total 0.3 mg/dL (0.2-1.2); Calc. Creatinine Clearance 94 mL/min (70-130); Calcium 8.1 mg/dL (7.8-10.44); Carbon Dioxide 23 mmol/L (23-31); Chloride 108 mmol/L (98-107); Estimated GFR-MDRD 86; Glucose 160 mg/dL (83-110); Potassium 3.7 mmol/L (3.5-5.1); Protein, Total 5.6 g/dL (5.8-8.1); Sodium 136 mmol/L (136-145)
[2018-12-06] MEDS: Lactated Ringer's 1,000 ML IV SCH ×2 (04:12→09:13)
[2018-12-06] MEDS: HumaLOG 300 UNITS/3 ML VIAL SC PRN ×4 (05:56→21:10)
[2018-12-06] MEDS: MEROPENEM 1 GM/50 ML 1 GM in Premix Bag 1 BAG IVPB SCH ×3 (05:56→21:04)
--- NOTE | 2018-12-06 06:13 | PDOC.FM ---
- Subjective Subjective: Yesterday pt underwent L and C spine MRI to evaluate possible osteo. He also had an EGD which found a Liane Goddard tear. Over night he has generally done well. No concerns from nursing. Patient will follows commands and denies any pain. - Objective MAR Reviewed: Yes Vital Signs & Weight: Vital Signs (12 hours) Temp Pulse Resp BP Pulse Ox 12/06/18 06:00 13 12/06/18 04:00 17 108/60 12/06/18 03:00 99.4 F 12/06/18 02:17 81 12/06/18 01:58 14 12/06/18 00:07 72 12/06/18 00:00 16 131/67 12/05/18 23:00 98.1 F 12/05/18 22:00 16 12/05/18 21:51 67 12/05/18 20:00 12 12/05/18 19:40 98/48 L 12/05/18 19:13 12 100 12/05/18 19:00 98.4 F 12/05/18 18:29 87 Weight Admit Weight 83.9 kg Weight 89.1 kg Most Recent Monitor Data Heart Rate from ECG 85 NIBP 133/61 NIBP BP-Mean 85 Respiration from ECG 17 SpO2 100 I&O: 12/04/18 12/05/18 12/06/18 06:59 06:59 06:59 Intake Total 1161.9 4720.9 3849 Output Total 445 2403 2100 Balance 716.9 2317.9 1749 Result Diagrams: 12/06/18 03:30 12/06/18 03:30 Radiology: L spine MRI shows old osteo, nothing acute. C spine MRI shows no acute process. Phys Exam - Physical Examination Constitutional: NAD HEENT: moist MMs, sclera anicteric Neck: no nodes Respiratory: clear to auscultation bilateral Cardiovascular: RRR, no significant murmur Gastrointestinal: positive bowel sounds Musculoskeletal: no edema, pulses present s/p mid tarsal amputation on L Neurological: moves all 4 limbs Deviation from normal: Intubated, cannot evaluate Skin: no rash Dx/Plan (1) Acute metabolic encephalopathy Code(s): G93.41 - METABOLIC ENCEPHALOPATHY Status: Acute (2) Afib Code(s): I48.91 - UNSPECIFIED ATRIAL FIBRILLATION Status: Acute (3) Diabetes Code(s): E11.9 - TYPE 2 DIABETES MELLITUS WITHOUT COMPLICATIONS Status: Acute (4) High anion gap metabolic acidosis Code(s): E87.2 - ACIDOSIS Status: Acute (5) Sepsis Code(s): A41.9 - SEPSIS, UNSPECIFIED ORGANISM Status: Acute (6) UGI bleed Code(s): K92.2 - GASTROINTESTINAL HEMORRHAGE, UNSPECIFIED Status: Acute (7) Anemia due to acute blood loss Code(s): D62 - ACUTE POSTHEMORRHAGIC ANEMIA Status: Acute (8) Demand ischemia of myocardium Code(s): I24.8 - OTHER FORMS OF ACUTE ISCHEMIC HEART DISEASE Status: Acute - Plan Plan: 1. Sepsis, likely 2/2 spinal osteomyelitis vs. other unknown source, now resolved - Likely sources include osteo or splenic abscess, both of which have since cleared. - WBC trending to normal no fever for 24 hours - he had to be paralyzed yesterday for MRI and was unable to be extubated dt this. Today pt is requiring very little PEEP or O2, would expect trial of spontaneous breathing. - Dr Wilder changed abx to Meropenem 2. UGIB - Hb is stable this morning as are vital signs - EGD yesterday found hemostatic Liane Goddard tear. - continue protonix 3. Metabolic Encephalopathy - will re evaluate mental status after extubation. Cause seem most likely to be related to infection - CSF studies are currently pending 4. Paroxysmal atrial fibrillation - continue dig. Plan to restart oral amiodarone and coreg after extubation. 5. DM2 - will restart lantus when he starts to eat. Continue SSI 6. Demand Ischemia 7. Macrocytic Anemia - pt has baseline anemia likely associated with etoh abuse which was exacerbated by GI bleed. Currently Hb is stable. Continue to monitor 8. COPD -duonebs, home meds 9. HTN -start home meds when taking PO 10. Alcohol abuse -ASE protocol, PRN benzos are ordered 11. Hypothyroidism -home meds when pt tolerating PO 12. Depression -home meds when pt tolerating PO 13. CAD -home meds when pt tolerating PO 14. Anion Gap Metabolic Acidosis -resolved CODE: FULL. Previously Son (Hosea, ) unsure if father may have an out of hospital DNR but is unsure of preferences regarding intubation. Lines: R IJ Central Line, OG with low intermittent suction GI Prophylaxis: Protonix DVT Prophylaxis: SCDs Addendum - Attending - Attending Attestation Date/Time: 12/06/18 7165 I personally evaluated the patient and discussed the management with Dr. Giles. I agree with the History, Examination, Assessment and Plan documented above with any addition or exceptions noted below. Patient here for concern for sepsis due to unknown process. He has history of spine osteo and underwent MRI yesterday that did not reveal and acute infection. He continues on Meropenem per ID. Labs overall stable and has now been 24 hours afebrile. Nursing is wondering whether his presentation (fevers, tremors, etc.) could be related to DT given his history of alcohol abuse and negative alcohol level on admission. This is a good thought. We are otherwise unable to find acute/active infection source. Continue abx and await specialist recs. UOP ok. About to undergo sedation holiday this morning.
[2018-12-06 06:49] LABS: Actual Bicarbonate (HCO3a) 24.6 mEq/L (22-28); Base Excess (BEa) -0.2 mEq/L (-2.0 to +3.0); CO2 Tension 40.8 mmHg (35.0-45.0); Calcium, Ionized 1.14 mmol/L (1.12-1.30); Carboxyhemoglobin (COHb) 1.1 gm% (0.0-3.0); Hemoglobin (Hb) 8.5 g/dL (14.0-18.0); O2 Tension (PaO2) 68.4 mmHg (> 70.0); Potassium - ABG Lab 3.35 mmol/L (3.70-5.30)
[2018-12-06 07:06] LABS: Puncture Site RRA
[2018-12-06] MEDS: Pantoprazole 40 MG VIAL IVP SCH ×2 (09:13→21:04)
[2018-12-06] MEDS: Digoxin 0.5 MG/2 ML AMP SLOW IVP SCH (09:13)
[2018-12-06] MEDS: Multivitamins, Adult 10 ML, Folic Acid 1 MG, Thiamine HCl 100 MG in Dextrose 5 %-0.45 %... IV SCH (09:13)
[2018-12-06] MEDS ORDERED: Cyanocobalamin 1000 MCG/ML VIAL IM SCH (11:15)
--- NOTE | 2018-12-06 11:34 | PRG ---
DATE OF SERVICE: 12/06/2018 SERVICE: Pulmonary Medicine. INTERVAL HISTORY: This morning, the patient is on a spontaneous breathing trial with a sedation holiday. He appears to be cool, calm, and collected. He does not have any chest discomfort, nausea, vomiting, or shortness of breath. He is following all commands. Otherwise, there has been no interval change to his condition. PHYSICAL EXAMINATION: VITAL SIGNS: Afebrile currently. His maximum temperature was 103.0. Pulse of 103, blood pressure 179/98, respirations 24, and saturation 95%, currently he is on 21% FiO2 and a PEEP of 5. HEENT: Normocephalic and atraumatic. Sclerae are white. Conjunctivae are pink. Oral mucosa is moist without lesions. LUNGS: Decent air entry. Slightly prolonged expiratory phase, but no wheezing or crackles are appreciated. HEART: Tachycardic. Regular. ABDOMEN: Soft, nontender, nondistended. Bowel sounds are positive. MUSCULOSKELETAL: No cyanosis or clubbing. No pitting in the bilateral lower extremities. NEUROLOGIC: Grossly nonfocal. He is following all commands. Breathing comfortably over the ventilator, demonstrates good cough and gag. LABORATORY DATA: WBC 4.6, hemoglobin 8.7 and stable, platelets are 69,000. MCV is 98. INR 1.4. PH 7.40, pCO2 of 41, PO2 of 68. Basic metabolic profile and liver function studies are otherwise unremarkable. Total bilirubin is 0.3. Procalcitonin 0.39 and downtrending x3. CSF glucose 175, protein 73. That being said, very few white blood cells are present. Benzodiazepine is positive on the urine drug screen. Alcohol level is unremarkable. Syphilis nonreactive. Spinal fluid culture, urine culture negative to date. IMAGIN. Lumbar spine MRI demonstrates nothing actionable. There is evidence of an old osteomyelitis/diskitis. An acute new thing cannot be excluded. 2. MRI of the C-spine demonstrates nothing actionable. No evidence of osteomyelitis or diskitis. ASSESSMENT: 1. Metabolic encephalopathy. 2. Respiratory failure secondary to inability to protect airway, resolved. 3. Upper gastrointestinal bleed secondary to Liane-Goddard tear. 4. Pancytopenia. 5. Severe sepsis. DISCUSSION AND PLAN: The patient is on a spontaneous breathing trial currently. If he meets criteria, extubation will be considered. Pulmonary/Critical Care will continue to follow along. If he tolerates the extubation, we will offer him a diet and start mobilization efforts. If he is doing fantastic, he can be considered for transition to the floor late this afternoon. Critical care time: 30 minutes. Job ID: [id number] MTDD
[2018-12-06] MEDS: Gabapentin 300 MG CAP PO SCH (21:03)
[2018-12-06] MEDS: traMADol HCl 50 MG TAB PO PRN (21:03)
[2018-12-07 05:28] LABS: #Eosinphils 0.1 thou/uL (0.0-0.7); #Lymphocytes 0.8 thou/uL (1.20-3.40); #Monocytes 0.5 thou/uL (0.11-0.59); #Neutrophils 3.1 thou/uL (1.40-6.50); %Basophils 0.2 % (0.0-1.0); %Eosinophils 2.8 % (0.0-10.0); %Lymphocytes 16.7 % (21.0-51.0); %Monocytes 10.8 % (0.0-10.0); %Neutrophils 69.5 % (42.0-75.0); Hemoglobin 8.9 g/dL (14.0-18.0); Mean Corpuscular HGB CONC 34.6 g/dL (32.0-36.0); Mean Corpuscular Hemoglobin 33.2 pg (27.0-31.0); Mean Platelet Volume 9.7 fL (7.4-10.4); Platelet Count 81 thou/uL (130-400); RBC Distribution Width 14.8 % (11.5-14.5); Red Blood Cell (RBC) Count 2.69 mill/uL (4.70-6.10); White Blood Cell (WBC) Count 4.5 thou/uL (4.8-10.8)
[2018-12-07 05:50] LABS: ALT (SGPT) 19 U/L (8-55); AST (SGOT) 35 U/L (5-34); Albumin 2.7 g/dL (3.4-4.8); Alkaline Phosphatase 102 U/L (40-150); Anion Gap 12 mmol/L (10-20); BUN (Urea Nitrogen) 9 mg/dL (8.4-25.7); Bilirubin, Total 0.4 mg/dL (0.2-1.2); Calc. Creatinine Clearance 100 mL/min (70-130); Calcium 8.4 mg/dL (7.8-10.44); Carbon Dioxide 23 mmol/L (23-31); Chloride 104 mmol/L (98-107); Estimated GFR-MDRD Greater than 90; Globulin 3.2 g/dL (2.4-3.5); Glucose 185 mg/dL (83-110); Protein, Total 5.9 g/dL (5.8-8.1); Sodium 136 mmol/L (136-145)
[2018-12-07] MEDS: MEROPENEM 1 GM/50 ML 1 GM in Premix Bag 1 BAG IVPB SCH ×3 (05:58→20:51)
[2018-12-07] MEDS: HumaLOG 300 UNITS/3 ML VIAL SC PRN ×3 (06:00→20:54)
[2018-12-07 06:03] LABS: Potassium 2.9 mmol/L (3.5-5.1)
--- NOTE | 2018-12-07 06:32 | PDOC.FM ---
- Subjective Subjective: Patient was successfully extubated yesterday and transitioned to the floor. Since then he has done well with no complaints. Nursing has no concerns. Patient is oriented and was able to give more of a hx than what was available at admission. Patient states that the day prior to admission he felt normal and had no problems. On the day he presented to the ER he states that he became fuzzy and had trouble getting his words out. He also noted that he had trouble doing simple tasks such as getting water from the fridge. He does not remember what happened since getting to the ER. He has a hx of HTN and DM, though he does not know his meds. Within the past year he has had an aortic valve replacement and stent placed in [place]. He has a remote hx of known cervical and lumbar osteo. He quit drinking 4 years ago, smokes 1.5 ppd, and denies drugs. - Objective MAR Reviewed: Yes Vital Signs & Weight: Vital Signs (12 hours) Temp Pulse Resp BP BP Pulse Ox 12/07/18 04:00 98.9 F 84 20 191/81 H 98 12/07/18 00:00 99.4 F 85 20 162/78 H 162/78 H 93 L 12/06/18 20:00 99.6 F 86 20 159/70 H 159/70 H 95 Weight Admit Weight 83.9 kg Weight 85.729 kg Most Recent Monitor Data Heart Rate from ECG 92 NIBP 136/78 NIBP BP-Mean 97 Respiration from ECG 17 SpO2 99 I&O: 12/05/18 12/06/18 12/07/18 06:59 06:59 06:59 Intake Total 4720.9 3908.5 1431.6 Output Total 2403 2100 4035 Balance 2317.9 1808.5 -2603.4 Result Diagrams: 12/07/18 05:12 12/07/18 05:12 Phys Exam - Physical Examination Constitutional: NAD HEENT: moist MMs Neck: no nodes Respiratory: clear to auscultation bilateral Cardiovascular: RRR 2/6 systolic murmur. Gastrointestinal: no distention, positive bowel sounds Mild TTP LLQ and RLQ Musculoskeletal: no edema L mid tarsal amputation Neurological: non-focal, normal sensation, moves all 4 limbs Psychiatric: A&O x 3 Skin: no rash Dx/Plan (1) Acute metabolic encephalopathy Code(s): G93.41 - METABOLIC ENCEPHALOPATHY Status: Resolved (2) Afib Code(s): I48.91 - UNSPECIFIED ATRIAL FIBRILLATION Status: Chronic (3) Diabetes Code(s): E11.9 - TYPE 2 DIABETES MELLITUS WITHOUT COMPLICATIONS Status: Chronic (4) High anion gap metabolic acidosis Code(s): E87.2 - ACIDOSIS Status: Resolved (5) Sepsis Code(s): A41.9 - SEPSIS, UNSPECIFIED ORGANISM Status: Resolved (6) UGI bleed Code(s): K92.2 - GASTROINTESTINAL HEMORRHAGE, UNSPECIFIED Status: Resolved (7) Anemia due to acute blood loss Code(s): D62 - ACUTE POSTHEMORRHAGIC ANEMIA Status: Resolved (8) Demand ischemia of myocardium Code(s): I24.8 - OTHER FORMS OF ACUTE ISCHEMIC HEART DISEASE Status: Resolved - Plan Plan: Sepsis, other unknown source, now resolved - After discussion with pt, osteo seems less likely as these were remote infections and this is c/w MRI findings. - It is possible that this was related to the splenic abscess or viral meningitis, for which labs are still pending. - Dr Wilder is following case. Pancytopenia - chronic anemia, however low plt and WBC count is new. - this could be related to a viral infection - will order retic and smear UGIB, secondary to Liane Goddard tear - Hb is stable this morning as are vital signs - continue protonix Metabolic Encephalopathy - will re evaluate mental status after extubation. Cause seem most likely to be related to infection - CSF studies are currently pending - now that patient is back to baseline will attempt to get a good med rec and restart meds today Paroxysmal atrial fibrillation - continue dig. Will restart home meds DM2 - cover with SSI and restart home meds Demand Ischemia, resolved COPD -duonebs, home meds HTN -start home meds when taking PO Alcohol abuse -ASE protocol, PRN benzos are ordered Hypothyroidism -home meds when pt tolerating PO Depression -home meds when pt tolerating PO CAD -home meds when pt tolerating PO Metabolic Acidosis -resolved CODE: FULL Addendum - Attending - Attending Attestation Date/Time: 12/07/18 6620 I personally evaluated the patient and discussed the management with Dr. Giles. I agree with the History, Examination, Assessment and Plan documented above with any addition or exceptions noted below. Patient doing well s/p extubation. He does not remember much about hospitalization, and only reports feeling "fuzzy" before being admitted. He reports overall feeling well prior to becoming acutely ill. His respiratory status is stable, he continues on IV abx and awaiting final cultures. His BP is elevated but we are resuming home meds today. Potassium low and will be repleted. Awaiting further recs from ID.
[2018-12-07] MEDS: Digoxin 0.125 MG TAB PO SCH (07:40)
[2018-12-07] MEDS: Thiamine 100 MG TAB PO SCH (07:41)
[2018-12-07] MEDS: Gabapentin 300 MG CAP PO SCH ×2 (07:41→20:50)
[2018-12-07] MEDS: Cyanocobalamin (Vitamin B-12) 1,000 MCG TAB PO SCH (07:41)
[2018-12-07] MEDS: Folic Acid 1 MG TAB PO SCH (07:41)
[2018-12-07] MEDS: Potassium Chloride 20 MEQ TAB PO SCH ×2 (07:41→16:33)
[2018-12-07] MEDS: Pantoprazole 40 MG VIAL IVP SCH (07:42)
[2018-12-07] MEDS ORDERED: Lisinopril 20 MG TAB PO SCH (09:00)
--- NOTE | 2018-12-07 11:17 | PRG ---
DATE OF SERVICE: 12/07/2018 SUBJECTIVE: Mr. Cruz has had no further overt bleeding. He is tolerating a solid diet. OBJECTIVE: VITAL SIGNS: Temperature 98.2, blood pressure 159/84, pulse 74. ABDOMEN: Soft, nontender, nondistended. Bowel sounds are present. IMPRESSION: Gastrointestinal bleed secondary to Liane-Goddard tear. Bleeding has resolved and his hemoglobin is stable. RECOMMENDATIONS: 1. Proton pump inhibitor daily. 2. GI will sign off. Please call if we can be of assistance. Job ID: [id number]
--- NOTE | 2018-12-07 12:29 | PRG ---
DATE OF SERVICE: 12/07/2018 SERVICE: Pulmonary Medicine. INTERVAL HISTORY: The patient is doing fine from respiratory standpoint. Breathing comfortably. He is on room air currently. He has no complaints of chest discomfort, nausea, or vomiting. The biggest issue is that he is having a hard time swallowing. He also has complaints of right shoulder discomfort. PHYSICAL EXAMINATION: VITAL SIGNS: Afebrile. His last temperature was on the 05 of December. Pulse 74, blood pressure 159/84, respirations 18, and saturation 98% on room air. GENERAL: The patient is awake and alert, in no apparent distress. LUNGS: Decreased air entry with a prolonged expiratory phase. No wheezing or crackles are appreciated. HEART: Normal rate and regular. ABDOMEN: Soft, nontender, and nondistended. Bowel sounds are positive. MUSCULOSKELETAL: No cyanosis or clubbing. He has 2+ pitting in the right forearm. Trace pitting in the left forearm. Otherwise, he has no pitting edema throughout. : Viramontes catheter in place. NEUROLOGIC: Grossly nonfocal. LABORATORY DATA: WBC 4.5, hemoglobin 8.9, platelets 81,000. INR 1.4. Potassium 2.9 and magnesium 1.6. Liver function studies are otherwise unremarkable. HSV 1 and 2 are negative. Syphilis is nonreactive. ASSESSMENT: 1. Metabolic encephalopathy, resolved. 2. Respiratory failure secondary to inability to protect airway, resolved. 3. Upper gastrointestinal bleed secondary to Liane-Goddard tear, hemoglobin stable. 4. Pancytopenia. 5. Severe sepsis. DISCUSSION AND PLAN: I will get a right shoulder x-ray. I will get speech involved to see whether or not we need to modify the texture of his food. Potassium and magnesium will be replaced today. At this point, the patient has no further requirements for inpatient Pulmonary/Critical Care opinion, and I will sign off. Please call with additional questions or concerns through time. Job ID: [id number]
[2018-12-07 12:30] LABS: Reticulocyte Count 1.1 % (0.5-1.5)
[2018-12-07 13:40] LABS: Band 38 % (5-11); Eosinophils 3 % (0-10); Hemoglobin 9.1 g/dL (14.0-18.0); Lymphocytes 14 % (21-51); MDiff Complete? YES; Mean Corpuscular HGB CONC 34.7 g/dL (32.0-36.0); Mean Corpuscular Volume 95.1 fL (78.0-98.0); Mean Platelet Volume 9.6 fL (7.4-10.4); Monocytes 11 % (0-10); Neutrophil 33 % (42-75); Platelet Count 83 thou/uL (130-400); Platelet Morphology Comment Appears Decreased; RBC Distribution Width 14.9 % (11.5-14.5); Reactive Lymphocytes 1 % (0-10); Red Blood Cell (RBC) Count 2.75 mill/uL (4.70-6.10); Tear Drops SLIGHT = 2-5 cells (100X) (0-1/hpf)
--- NOTE | 2018-12-07 14:59 | RAD ---
RIGHT SHOULDER THREE VIEWS: HISTORY: Right shoulder pain. FINDINGS: There are degenerative changes in the acromioclavicular joint. No fracture, dislocation, or bony nia truction is identified. POS: [facility]
[2018-12-07 15:19] LABS: Anion Gap 10 mmol/L (10-20); BUN (Urea Nitrogen) 9 mg/dL (8.4-25.7); Calc. Creatinine Clearance 77 mL/min (70-130); Calcium 8.5 mg/dL (7.8-10.44); Carbon Dioxide 27 mmol/L (23-31); Chloride 102 mmol/L (98-107); Estimated GFR-MDRD 70; Glucose 223 mg/dL (83-110); Potassium 3.1 mmol/L (3.5-5.1); Sodium 136 mmol/L (136-145)
[2018-12-08] MEDS ORDERED: traZODone HCl 50 MG TAB PO SCH (00:15)
[2018-12-08] MEDS: traMADol HCl 50 MG TAB PO PRN (03:05)
[2018-12-08 05:17] LABS: #Eosinphils 0.1 thou/uL (0.0-0.7); #Lymphocytes 0.9 thou/uL (1.20-3.40); #Monocytes 0.5 thou/uL (0.11-0.59); #Neutrophils 2.3 thou/uL (1.40-6.50); %Basophils 0.5 % (0.0-1.0); %Eosinophils 2.6 % (0.0-10.0); %Lymphocytes 24.5 % (21.0-51.0); %Monocytes 12.9 % (0.0-10.0); %Neutrophils 59.6 % (42.0-75.0); Hemoglobin 8.5 g/dL (14.0-18.0); Mean Corpuscular HGB CONC 33.3 g/dL (32.0-36.0); Mean Corpuscular Hemoglobin 31.8 pg (27.0-31.0); Mean Corpuscular Volume 95.5 fL (78.0-98.0); Mean Platelet Volume 9.2 fL (7.4-10.4); Platelet Count 102 thou/uL (130-400); RBC Distribution Width 14.9 % (11.5-14.5); Red Blood Cell (RBC) Count 2.67 mill/uL (4.70-6.10); White Blood Cell (WBC) Count 3.8 thou/uL (4.8-10.8)
[2018-12-08 05:37] LABS: Anion Gap 11 mmol/L (10-20); BUN (Urea Nitrogen) 15 mg/dL (8.4-25.7); Calc. Creatinine Clearance 78 mL/min (70-130); Calcium 8.3 mg/dL (7.8-10.44); Carbon Dioxide 27 mmol/L (23-31); Chloride 100 mmol/L (98-107); Estimated GFR-MDRD 72; Glucose 210 mg/dL (83-110); Sodium 135 mmol/L (136-145)
[2018-12-08 05:39] LABS: Potassium 2.9 mmol/L (3.5-5.1)
[2018-12-08] MEDS: MEROPENEM 1 GM/50 ML 1 GM in Premix Bag 1 BAG IVPB SCH ×3 (05:52→21:06)
[2018-12-08] MEDS: Levothyroxine Sodium 100 MCG TAB PO SCH (05:53)
[2018-12-08] MEDS: HumaLOG 300 UNITS/3 ML VIAL SC PRN ×3 (05:55→20:46)
[2018-12-08] MEDS ORDERED: Potassium Chloride 40 MEQ in Premix Bag 1 BAG IVPB SCH (06:30)
--- NOTE | 2018-12-08 07:55 | PDOC.FM ---
- Subjective Subjective: Patient reports he is feeling well this AM. Reports bilateral shoulder pain. Denies chest pain, SOB. Reports he has been drinking, voiding (catheter in place ), passing flatus and stooling. - Objective Vital Signs & Weight: Vital Signs (12 hours) Temp Pulse Resp BP BP BP Pulse Ox 12/08/18 07:36 98.0 F 94 20 136/73 97 12/08/18 04:00 97.7 F 86 20 177/75 H 177/75 H 97 12/08/18 00:00 172/76 H 12/07/18 23:41 98.9 F 81 20 172/76 H 93 L 12/07/18 20:00 174/77 H Weight Admit Weight 83.9 kg Weight 84.323 kg Most Recent Monitor Data Heart Rate from ECG 92 NIBP 136/78 NIBP BP-Mean 97 Respiration from ECG 17 SpO2 99 I&O: 12/07/18 12/08/18 12/09/18 06:59 06:59 06:59 Intake Total 1431.6 1406 Output Total 4035 2600 Balance -2603.4 -1194 Result Diagrams: 12/08/18 04:49 12/08/18 04:49 Phys Exam - Physical Examination Constitutional: NAD Respiratory: no wheezing, clear to auscultation bilateral 2/6 systolic murmur Gastrointestinal: soft, positive bowel sounds Musculoskeletal: no edema, pulses present Neurological: non-focal, moves all 4 limbs Psychiatric: normal affect, A&O x 3 Skin: normal turgor, cap refill <2 seconds Dx/Plan (1) Liane-Goddard tear Code(s): K22.6 - GASTRO-ESOPHAGEAL LACERATION-HEMORRHAGE SYNDROME Status: Acute (2) Respiratory failure Code(s): J96.90 - RESPIRATORY FAILURE, UNSP, UNSP W HYPOXIA OR HYPERCAPNIA Status: Resolved (3) Afib Code(s): I48.91 - UNSPECIFIED ATRIAL FIBRILLATION Status: Chronic (4) Diabetes Code(s): E11.9 - TYPE 2 DIABETES MELLITUS WITHOUT COMPLICATIONS Status: Chronic (5) Acute metabolic encephalopathy Code(s): G93.41 - METABOLIC ENCEPHALOPATHY Status: Resolved (6) High anion gap metabolic acidosis Code(s): E87.2 - ACIDOSIS Status: Resolved (7) Sepsis Code(s): A41.9 - SEPSIS, UNSPECIFIED ORGANISM Status: Resolved (8) UGI bleed Code(s): K92.2 - GASTROINTESTINAL HEMORRHAGE, UNSPECIFIED Status: Acute (9) Hypokalemia Code(s): E87.6 - HYPOKALEMIA Status: Acute (10) Alcoholic cirrhosis of liver Code(s): K70.30 - ALCOHOLIC CIRRHOSIS OF LIVER WITHOUT ASCITES Status: Chronic Qualifiers: Ascites presence: without ascites Qualified Code(s): K70.30 - Alcoholic cirrhosis of liver without ascites (11) Anemia, macrocytic Code(s): D53.9 - NUTRITIONAL ANEMIA, UNSPECIFIED Status: Chronic (12) COPD (chronic obstructive pulmonary disease) Status: Chronic (13) DM type 2 (diabetes mellitus, type 2) Status: Chronic Qualifiers: Diabetes mellitus group home insulin use: with group home use Diabetes mellitus complication status: without complication Qualified Code(s): E11.9 - Type 2 diabetes mellitus without complications; Z79.4 - penitentiary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 (14) HTN (hypertension) Code(s): I10 - ESSENTIAL (PRIMARY) HYPERTENSION Status: Chronic (15) Hypothyroidism Code(s): E03.9 - HYPOTHYROIDISM, UNSPECIFIED Status: Chronic (16) Thrombocytopenia Code(s): D69.6 - THROMBOCYTOPENIA, UNSPECIFIED Status: Chronic - Plan Plan: Sepsis, other unknown source, now resolved - After discussion with pt, osteo seems less likely as these were remote infections and this is c/w MRI findings. Hx Splenic abscess, resolved on CT - CSF studies (enterovirus, HSV, W Nile) pending. Otherwise CSF, blood cx NGTD - Meño is following case. - On Meropenem Pancytopenia - chronic anemia, however low plt and WBC count is new. - this could be related to a viral infection - Retic shows hypoproliferation, smear pending UGIB, secondary to Liane Goddard tear - Hb stable - continue protonix Toxic Metabolic Encephalopathy - Resolved. Cause seem most likely to be related to infection - CSF studies are currently pending Hypokalemia -monitor and replace as necessary -Magnesium wnl, will check phos Paroxysmal atrial fibrillation - continue dig. Will restart home meds DM2 - cover with SSI - home insulin Demand Ischemia, resolved COPD -duonebs, home meds HTN -start home meds when taking PO Alcohol abuse -ASE protocol, PRN benzos are ordered Liver cirrhosis -seen on imaging, aware Hypothyroidism -home meds Depression -home meds CAD -home meds Metabolic Acidosis -resolved CODE: DNI, discussed with patient at bedside. Addendum - Attending - Attending Attestation Date/Time: 12/08/18 9369 I personally evaluated the patient and discussed the management with Dr. Tyson I agree with the History, Examination, Assessment and Plan documented above with any addition or exceptions noted below. Patient making recovery recommend advance activity. Patient relates has not had group home indwelling bravo history significant prior urethral trauma patient states he is able to void without bravo and denies urinary incontinence ok d/c bravo as well. Continue current antibiotic pending final culture and CSF results. patient tolerating diet. Patient if candidate will benefit from continued rehab as outpatient.
[2018-12-08] MEDS: Potassium Chloride 20 MEQ in Premix Bag 1 BAG IVPB SCH ×2 (08:06→10:40)
[2018-12-08] MEDS: Ferrous Sulfate 325 MG TAB PO SCH ×2 (08:06→20:38)
[2018-12-08] MEDS: Carvedilol 3.125 MG TAB PO SCH ×2 (08:07→20:37)
[2018-12-08] MEDS: Propranolol 60 MG TAB PO SCH ×2 (08:07→20:39)
[2018-12-08] MEDS: Folic Acid 1 MG TAB PO SCH (08:07)
[2018-12-08] MEDS: Digoxin 0.125 MG TAB PO SCH (08:07)
[2018-12-08] MEDS: Potassium Chloride 20 MEQ TAB PO SCH ×2 (08:07→17:21)
[2018-12-08] MEDS: Thiamine 100 MG TAB PO SCH (08:08)
[2018-12-08] MEDS: Cyanocobalamin (Vitamin B-12) 1,000 MCG TAB PO SCH (08:08)
[2018-12-08] MEDS: Lisinopril 20 MG TAB PO SCH ×2 (08:08→20:38)
[2018-12-08] MEDS: Gabapentin 400 MG CAP PO SCH ×2 (08:08→20:38)
[2018-12-08] MEDS: Atorvastatin Calcium 40 MG TAB PO SCH (08:08)
[2018-12-08] MEDS: Famotidine 20 MG TAB PO SCH ×2 (08:08→20:37)
[2018-12-08] MEDS: traMADol HCl 50 MG TAB PO SCH ×3 (08:09→20:38)
[2018-12-08 08:35] LABS: Phosphorus 1.6 mg/dL (2.3-4.7)
[2018-12-08] MEDS: Insulin Glargine 25 UNITS in Pre-Filled Syringe 1 EACH SC SCH (08:47)
[2018-12-08] MEDS ORDERED: INSULIN DETEMIR 100 UNIT SQ SCH (09:00)
[2018-12-08] MEDS ORDERED: Insulin Glargine 100 UNITS in Pre-Filled Syringe 1 EACH SC SCH (09:00)
[2018-12-08] MEDS ORDERED: PHOS-NAK 1 PKT PACK PO SCH ×2 (09:30→18:15)
[2018-12-08] MEDS ORDERED: traZODone HCl 50 MG TAB PO PRN (11:40)
[2018-12-08 13:10] LABS: Enterovirus RT-PCR Negative (Negative)
[2018-12-08 13:17] LABS: Anion Gap 11 mmol/L (10-20); BUN (Urea Nitrogen) 15 mg/dL (8.4-25.7); Calc. Creatinine Clearance 79 mL/min (70-130); Calcium 7.9 mg/dL (7.8-10.44); Carbon Dioxide 27 mmol/L (23-31); Chloride 102 mmol/L (98-107); Estimated GFR-MDRD 74; Glucose 252 mg/dL (83-110); Potassium 3.9 mmol/L (3.5-5.1); Sodium 136 mmol/L (136-145)
[2018-12-08 13:23] LABS: Phosphorus 2.1 mg/dL (2.3-4.7)
[2018-12-08 14:09] LABS: West Nile Virus IgG Ab - CSF Positive (Negative); West Nile Virus IgM Ab - CSF Negative (Negative)
[2018-12-08 15:48] VITALS: BMI 25.2
--- NOTE | 2018-12-08 16:58 | PRG ---
DATE OF SERVICE: 12/08/2018 SUBJECTIVE: Back down to floor, feeling much better, awake. No respiratory symptoms. No abdominal pain. Voiding without difficulty after Viramontes removal. He has been afebrile for the past 2 days. OBJECTIVE: VITAL SIGNS: Other vital signs are normal. O2 saturation 97% on room air. Peripheral IV access, no Viramontes catheter. GENERAL: Awake, oriented. Follows commands and pleasant. HEENT: Ocular movements conjugate. LUNGS: Symmetric air entry. HEART: S1 and S2 regular rate. ABDOMEN: Soft, nontender. No bladder distention. LABORATORY DATA: White cell count 3.8, hemoglobin 8.5, platelets 102,000, and 59% neutrophils. Creatinine 0.99. There is a CSF evaluation for HSV, Enterovirus, and Syphilis were all negative CSF West Nile antibody, but that was an IgG, the IgM was negative. ASSESSMENT AND PLAN: History of alcoholism, cirrhosis, hypertension, type 2 diabetes, prior methicillin-resistant Staphylococcus aureus bacteremia, cervical lumbosacral spine infection, splenic abscess, which have resolved as demonstrated by imaging studies and admitted with fever. The CSF studies were negative. The IgG for West Nile represents old infection rather than acute infection. The mental status changes probably due to toxic metabolic encephalopathy associated with the urinary infection. Job ID: [id number] [facility]
[2018-12-08] MEDS ORDERED: traZODone HCl 150 MG TAB PO SCH (21:00)
[2018-12-08] MEDS ORDERED: Insulin Glargine 20 UNITS in Pre-Filled Syringe 1 EACH SC SCH (21:00)
[2018-12-09 00:28] VITALS: BP 149/76; TEMP 97.9
[2018-12-09] MEDS: MEROPENEM 1 GM/50 ML 1 GM in Premix Bag 1 BAG IVPB SCH (05:10)
[2018-12-09] MEDS: Levothyroxine Sodium 100 MCG TAB PO SCH (05:10)
[2018-12-09] MEDS: traMADol HCl 50 MG TAB PO PRN (05:11)
[2018-12-09 07:18] LABS: #Eosinphils 0.3 thou/uL (0.0-0.7); #Monocytes 0.6 thou/uL (0.11-0.59); #Neutrophils 2.2 thou/uL (1.40-6.50); %Basophils 0.1 % (0.0-1.0); %Eosinophils 6.7 % (0.0-10.0); %Monocytes 14.3 % (0.0-10.0); %Neutrophils 53.9 % (42.0-75.0); Hemoglobin 9.2 g/dL (14.0-18.0); Mean Corpuscular Hemoglobin 32.9 pg (27.0-31.0); Mean Corpuscular Volume 96.8 fL (78.0-98.0); Mean Platelet Volume 8.9 fL (7.4-10.4); Platelet Count 146 thou/uL (130-400); White Blood Cell (WBC) Count 4.2 thou/uL (4.8-10.8)
[2018-12-09 07:42] LABS: Anion Gap 12 mmol/L (10-20); BUN (Urea Nitrogen) 21 mg/dL (8.4-25.7); Calc. Creatinine Clearance 75 mL/min (70-130); Carbon Dioxide 26 mmol/L (23-31); Chloride 103 mmol/L (98-107); Estimated GFR-MDRD 72; Glucose 127 mg/dL (83-110); Potassium 3.9 mmol/L (3.5-5.1); Sodium 137 mmol/L (136-145)
--- NOTE | 2018-12-09 08:50 | PDOC.FM ---
- Subjective Subjective: Patient feels well this AM, no complaints. Eating, drinking, voiding, and stooling well. NAEO - Objective Vital Signs & Weight: Vital Signs (12 hours) Temp Pulse Resp BP BP Pulse Ox 12/09/18 00:00 97.9 F 90 18 149/76 H 149/76 H 95 Weight Admit Weight 83.9 kg Weight 82.327 kg Most Recent Monitor Data Heart Rate from ECG 92 NIBP 136/78 NIBP BP-Mean 97 Respiration from ECG 17 SpO2 99 I&O: 12/08/18 12/09/18 12/10/18 06:59 06:59 06:59 Intake Total 1406 720 Output Total 2600 950 Balance -1194 -230 Result Diagrams: 12/09/18 07:04 12/09/18 07:04 Phys Exam - Physical Examination Constitutional: NAD HEENT: moist MMs Respiratory: no rales, no rhonchi wheezing diffusely on exam Cardiovascular: no significant murmur irregularly irregular rhythm Gastrointestinal: soft, no distention Musculoskeletal: no edema, pulses present Neurological: moves all 4 limbs Psychiatric: normal affect, A&O x 3 Skin: normal turgor, cap refill <2 seconds Dx/Plan (1) Liane-Goddard tear Code(s): K22.6 - GASTRO-ESOPHAGEAL LACERATION-HEMORRHAGE SYNDROME Status: Acute (2) Respiratory failure Code(s): J96.90 - RESPIRATORY FAILURE, UNSP, UNSP W HYPOXIA OR HYPERCAPNIA Status: Resolved (3) Afib Code(s): I48.91 - UNSPECIFIED ATRIAL FIBRILLATION Status: Chronic (4) Diabetes Code(s): E11.9 - TYPE 2 DIABETES MELLITUS WITHOUT COMPLICATIONS Status: Chronic (5) Acute metabolic encephalopathy Code(s): G93.41 - METABOLIC ENCEPHALOPATHY Status: Resolved (6) High anion gap metabolic acidosis Code(s): E87.2 - ACIDOSIS Status: Resolved (7) Sepsis Code(s): A41.9 - SEPSIS, UNSPECIFIED ORGANISM Status: Resolved (8) UGI bleed Code(s): K92.2 - GASTROINTESTINAL HEMORRHAGE, UNSPECIFIED Status: Acute (9) Hypokalemia Code(s): E87.6 - HYPOKALEMIA Status: Acute (10) Alcoholic cirrhosis of liver Code(s): K70.30 - ALCOHOLIC CIRRHOSIS OF LIVER WITHOUT ASCITES Status: Chronic Qualifiers: Ascites presence: without ascites Qualified Code(s): K70.30 - Alcoholic cirrhosis of liver without ascites (11) Anemia, macrocytic Code(s): D53.9 - NUTRITIONAL ANEMIA, UNSPECIFIED Status: Chronic (12) COPD (chronic obstructive pulmonary disease) Status: Chronic (13) DM type 2 (diabetes mellitus, type 2) Status: Chronic 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 Diabetes mellitus complication status: without complication Qualified Code(s): E11.9 - Type 2 diabetes mellitus without complications; Z79.4 - halfway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 (14) HTN (hypertension) Code(s): I10 - ESSENTIAL (PRIMARY) HYPERTENSION Status: Chronic (15) Hypothyroidism Code(s): E03.9 - HYPOTHYROIDISM, UNSPECIFIED Status: Chronic (16) Thrombocytopenia Code(s): D69.6 - THROMBOCYTOPENIA, UNSPECIFIED Status: Chronic (17) Demand ischemia of myocardium Code(s): I24.8 - OTHER FORMS OF ACUTE ISCHEMIC HEART DISEASE Status: Resolved - Plan Plan: Sepsis, likely 2/2 UTI, now resolved - Osteo seems less likely as these were remote infections and this is c/w MRI findings. Hx Splenic abscess, resolved on CT. - CSF studies (enterovirus, HSV, W Nile) negative. Otherwise CSF, blood cx NGTD - Dr. Wilder consulted, appreciate recommendations -urine likely source of infection - On Meropenem Pancytopenia, improving - chronic anemia, hx low WBC in past, however low plt is new - platelets improved this AM, Hgb uptrended. - Retic shows hypoproliferation, peripheral smear shows few tear drop cells UGIB, secondary to Liane Goddard tear - s/p EGD - Hb stable - continue protonix Toxic Metabolic Encephalopathy - Resolved. Cause seem most likely to be related to infection Hypokalemia -monitor and replace as necessary Hypophosphatemia -replaced yesterday, awaiting AM lab result Paroxysmal atrial fibrillation - continue dig. Home medications DM2 - cover with SSI - home insulin Demand Ischemia, resolved COPD -duonebs, home meds HTN -start home meds when taking PO Hx Alcohol abuse -ASE protocol, PRN benzos are ordered - patient states he hasn't had alcohol in years Liver cirrhosis -seen on imaging, aware Hypothyroidism -home meds Depression -home meds CAD -home meds Metabolic Acidosis -resolved CODE: DNI, discussed with patient at bedside. Addendum - Attending - Attending Attestation Date/Time: 12/12/18 2988 I personally evaluated the patient and discussed the management with Dr. Tyson on 12/09/18. I agree with the History, Examination, Assessment and Plan documented above with any addition or exceptions noted below. Pt. feeling much better. Ready to go home. Sepsis resolved. Apparently d/t UTI, no evidence of recurrence of Osteomyelitis. Will D/c home to finish abx's as OP.
[2018-12-09] MEDS: Ferrous Sulfate 325 MG TAB PO SCH (08:55)
[2018-12-09] MEDS: Atorvastatin Calcium 40 MG TAB PO SCH (08:55)
[2018-12-09] MEDS: Propranolol 60 MG TAB PO SCH (08:55)
[2018-12-09] MEDS: Carvedilol 3.125 MG TAB PO SCH (08:56)
[2018-12-09] MEDS: Cyanocobalamin (Vitamin B-12) 1,000 MCG TAB PO SCH (08:56)
[2018-12-09] MEDS: Digoxin 0.125 MG TAB PO SCH (08:56)
[2018-12-09] MEDS: Famotidine 20 MG TAB PO SCH (08:56)
[2018-12-09] MEDS: Lisinopril 20 MG TAB PO SCH (08:56)
[2018-12-09] MEDS: Potassium Chloride 20 MEQ TAB PO SCH (08:56)
[2018-12-09] MEDS: Gabapentin 400 MG CAP PO SCH (08:57)
[2018-12-09] MEDS: Thiamine 100 MG TAB PO SCH (08:57)
[2018-12-09] MEDS: traMADol HCl 50 MG TAB PO SCH (08:57)
[2018-12-09] MEDS: Folic Acid 1 MG TAB PO SCH (08:57)
[2018-12-09] MEDS: Insulin Glargine 25 UNITS in Pre-Filled Syringe 1 EACH SC SCH (08:58)
[2018-12-09 09:17] LABS: Phosphorus 2.2 mg/dL (2.3-4.7)
[2018-12-09] MEDS ORDERED: PHOS-NAK 1 PKT PACK PO SCH (13:00)
--- NOTE | 2018-12-10 11:52 | DIS ---
DATE OF ADMISSION: 12/03/2018 DATE OF DISCHARGE: 12/09/2018 RESIDENT: Lorie Tyson MD ADMITTING ATTENDING: Remberto Diehl MD DISCHARGE ATTENDING: Yakov Ferrer MD CONSULTS: 1. Gastroenterology, Tru Patton MD, 12/05/2018. 2. Fletcher Wilder MD, Infectious Disease, 12/05/2018. 3. John De MD, Pulmonology, 12/04/2018. PROCEDURES PERFORMED: 1. Chest x-ray 12/03/2018. Endotracheal and NG tubes in satisfactory position. 2. Chest x-ray 12/03/2018, placement of right-sided central line. No signs of pneumothorax. 3. Operative note, 12/03/2018, diagnostic lumbar puncture. 4. Chest x-ray, 12/04/2018. No lower consolidation, pneumothoraces, or pleural effusions identified. 5. Abdomen and pelvis CT, 12/04/2018. a. Impression: b. Resolution of previously seen splenic abscess. c. Stable cirrhotic morphology of liver. d. Nonspecific perinephric soft tissue edema. e. Wall thickening involving the bladder, slightly accentuated due to the extent of bladder compression from the Viramontes catheter. Cystitis is not excluded. f. 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 6. Cervical spine MRI, 12/05/2018. a. Impression: b. Trace amount of fluid and enhancement at the C6-C7 disk space, which has easily nearly fused. No abnormal signal intensity in adjacent vertebra. Linear fluid enhancement is of doubtful significance. No evidence of osteomyelitis or diskitis in the cervical spine. c. No evidence of significant phlegmonous change. d. Degenerative changes of the cervical spine as detailed above. 7. Lumbar spine MRI, 12/05/2018. a. Impression: b. There are changes at L5-S1 which appear to represent sequela from previous osteomyelitis/diskitis, compression of L5 with slight retropulsion. There is loss of disk space with irregularity of the endplates. Degenerative endplate changes are now present. Mild enhancement along the endplates presents today. Findings are felt to most likely represent changes from the prior infection. No significant vertebral body edema seen today and no enhancement within the disk space. If there is concern of recurrent infection at the site clinically, recommend short-term followup to assess interval change at this level. c. Central canal stenosis at L2-3, L3-4, L4-5 levels as described above. 8. Shoulder x-ray, 12/07/2018. Findings are degenerative changes in the acromioclavicular joint. No fracture, dislocation, or bony destruction is identified. PRIMARY DIAGNOSES: 1. Sepsis secondary to urinary tract infection. 2. Pancytopenia. 3. Upper gastrointestinal bleed secondary to Liane-Goddard tear. 4. Toxic metabolic encephalopathy. SECONDARY DIAGNOSES: 1. Hypokalemia. 2. Hypophosphatemia. 3. Paroxysmal atrial fibrillation. 4. Diabetes mellitus, type 2. 5. Demand ischemia, resolved. 6. Chronic obstructive pulmonary disease. 7. Hypertension. 8. History of alcohol abuse. 9. Liver cirrhosis. 10. Hypothyroidism. 11. Depression. 12. Coronary artery disease. 13. Metabolic acidosis, resolved. DISCHARGE MEDICATIONS: 1. Folic acid 1 mg p.o. daily. 2. Pantoprazole 40 mg p.o. daily. 3. Cipro 250 mg p.o. b.i.d. 4. Tramadol 50 mg p.o. t.i.d. 5. Ranitidine 150 mg p.o. b.i.d. 6. Propranolol 60 mg p.o. b.i.d. 7. Minocycline 100 mg p.o. b.i.d. 8. Levothyroxine 0.2 mg p.o. daily. 9. Ketoconazole 1 application topical two times a week. 10. Fluocinonide one application topical twice daily. 11. Ferrous sulfate 325 mg p.o. b.i.d. 12. Clobetasol propionate 0.05% ointment one application topical b.i.d. 13. Carvedilol 3.125 mg p.o. b.i.d. 14. Atorvastatin 40 mg p.o. daily. 15. Trazodone 100 mg p.o. at bedtime. 16. Lisinopril 20 mg p.o. b.i.d. 17. Gabapentin 400 mg p.o. twice daily. 18. Clopidogrel bisulfate 75 mg p.o. daily. 19. Adalimumab 40 mg subcu, see physician instruction every 14 days. 20. NovoLog 10 units subcu 3 times daily with meals. 21. Insulin 55 units subcu twice daily. DISCONTINUED MEDICATIONS: None. HISTORY OF PRESENT ILLNESS/HOSPITAL COURSE: The patient is a 73-year-old male with past medical history of alcohol abuse, bacteremia 2/2 lumbar osteomyelitis, and GI bleed. He was a transfer from [place] [facility]. He was found by his friend to be altered, A and O x1. He was taken to the [facility] ER, Head CT was normal. Patient met SIRS criteria, febrile and tachycardic. A sepsis workup was started. An LP was attempted. The patient became agitated during the LP, was sedated and subsequently intubated. UA was positive and was sent for culture. Blood cultures were drawn. He was started on vancomycin and cefepime. The patient had a coffee-ground emesis in [place]. He received Versed and fentanyl during the transfer to [place]. Patient was intubated in the ICU for a couple days. He received a lumbar MRI/cervical MRI to search for possible recurrence of osteomyelitis prior to be extubated. Upon extubation, he was AOx3, and he was sent to the medical floor. Sepsis secondary to UTI. The patient received a septic workup here including repeat LP. CSF studies, culture, enterovirus, HSV, and West Nile were negative. Due to history of bacteremia 2/2 osteomylitis last year, Dr. Meño VEGA was consulted. Pt was started on meropenem. Workup was essentially negative, and patient improved on antibiotics. It was thought that the patient's most likely source of infection and cause for altered mental status was UTI. The patient's UA from [place] showed protein of 100, glucose of 500, ketones of 15, RBCs 11-20, WBCs 21-50, squamous epithelial cells 4-6, urine bacteria 1+. Only <5000 presumed Proteus grew. Again, Blood culture and CSF culture grew nothing by 5 days. No other sources of infection were identified. On discharge, the patient was alert and oriented x3. He was feeling well and ready to go home. He was discharged on Cipro 250 mg p.o. b.i.d. for 7 days. Toxic metabolic encephalopathy. This seems most likely to be related to urinary tract infection. No other source was identified for his AMS. UDS was negative. AOx3 on discharge. GI was consulted for coffee-ground emesis. EGD was done which showed Liane- Goddard tear. The patient was started on Protonix. No blood products were given. Hemoglobin ( 9.2) was stable at discharge. The patient was pancytopenic. He has a history of low hemoglobin and Leukopenia. White blood cells got as low as 3.8. Platelets jessee was at 60, but improved to 146 by discharge. On discharge, white blood cell count was 4.2; Hemoglobin was 9.2. Reticulocyte index showed hypoproliferation. Peripheral blood smear showed a few teardrop cells. Pancytopenia likely secondary to infection and chronic disease/liver cirrhosis. DISPOSITION: Stable. DISCHARGE INSTRUCTIONS: 1. Location: Home. 2. Diet: Heart healthy. 3. Activity: As tolerated. 4. Followup: Followup with Dr. Marques PCP within [address] Wilder per his recommendations. Please send a copy of this report to patient's PCP. Thank you for allowing us to participate in his care. Job ID: [id number] [facility]
== END 2018-12-09 16:27 | disposition home or self-care (01) | DRG 871 ==
LOC: ERS 19:48 → CCU 21:25 → T4-A 12-06 16:33
PROVIDERS: ADMIT Family Medicine; ATTEND Family Medicine
PROC: 0BH17EZ Insertion of Endotracheal Airway into Trachea, Via Natural or Artificial Opening (ICD-10-PCS; principal; 2018-12-03)
PROC: 009U3ZX Drainage of Spinal Canal, Percutaneous Approach, Diagnostic (ICD-10-PCS; 2018-12-03)
PROC: 5A1945Z Respiratory Ventilation, 24-96 Consecutive Hours (ICD-10-PCS; 2018-12-03)
PROC: 0D768ZZ Dilation of Stomach, Via Natural or Artificial Opening Endoscopic (ICD-10-PCS; 2018-12-05)
PROC: 0DP68UZ Removal of Feeding Device from Stomach, Via Natural or Artificial Opening Endoscopic (ICD-10-PCS; 2018-12-05)
DX: A41.9 Sepsis, unspecified organism (principal); K22.6 Gastro-esophageal laceration-hemorrhage syndrome; G92 Toxic encephalopathy; J96.90 Respiratory failure, unspecified, unspecified whether with hypoxia or hypercapnia; I24.8 Other forms of acute ischemic heart disease; E87.2 Acidosis; M46.28 Osteomyelitis of vertebra, sacral and sacrococcygeal region; D62 Acute posthemorrhagic anemia; K22.10 Ulcer of esophagus without bleeding; D61.818 Other pancytopenia; N39.0 Urinary tract infection, site not specified; I10 Essential (primary) hypertension; I25.10 Atherosclerotic heart disease of native coronary artery without angina pectoris; F41.9 Anxiety disorder, unspecified; E11.9 Type 2 diabetes mellitus without complications; F17.210 Nicotine dependence, cigarettes, uncomplicated; E03.9 Hypothyroidism, unspecified; F32.9 Major depressive disorder, single episode, unspecified; J44.9 Chronic obstructive pulmonary disease, unspecified; D53.9 Nutritional anemia, unspecified; F10.10 Alcohol abuse, uncomplicated; I48.0 Paroxysmal atrial fibrillation; K29.70 Gastritis, unspecified, without bleeding; B95.62 Methicillin resistant Staphylococcus aureus infection as the cause of diseases classified elsewhere; D69.6 Thrombocytopenia, unspecified; R65.20 Severe sepsis without septic shock; K70.30 Alcoholic cirrhosis of liver without ascites; E87.6 Hypokalemia; E83.39 Other disorders of phosphorus metabolism; Z89.432 Acquired absence of left foot; Z89.431 Acquired absence of right foot; Z90.49 Acquired absence of other specified parts of digestive tract; Z79.01 Long term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 of anticoagulants
CPT/HCPCS: 36415; 36416; 36556; 71045; 72156; 72158; 74177; 80048; 80053; 80202; 80306; 80307; 82140; 82553; 82607; 82746; 82805; 82945; 83605; 83735; 84100; 84145; 84157; 84443; 84484; 85025; 85046; 85060; 85610; 85730; 86780; 86788; 86789; 86850; 86900; 86901; 87070; 87086; 87205; 87498; 87529; 87798; 89051; 94002; 94003; 96361; 96365; 96366; 96375; 96376; 99292; C9113; J0290; J0692; J0696; J1160; J1815; J2060; J2185; J2704; J3010; J3370; J3411; J3420; J3475; J3480; J3490; J7042

== ENCOUNTER 2019-07-06 00:33 | Emergency (ER) | payer MEDICARE, OTHER ==
[2019-07-06 01:20] LABS: #Eosinphils 0.5 thou/uL (0.0-0.7); #Lymphocytes 1.4 thou/uL (1.20-3.40); #Monocytes 0.7 thou/uL (0.11-0.59); #Neutrophils 3.9 thou/uL (1.40-6.50); %Basophils 0.3 % (0.0-1.0); %Eosinophils 7.3 % (0.0-10.0); %Monocytes 11.4 % (0.0-10.0); Hemoglobin 12.1 g/dL (14.0-18.0); Mean Corpuscular HGB CONC 34.2 g/dL (32.0-36.0); Mean Corpuscular Hemoglobin 34.3 pg (27.0-31.0); Mean Platelet Volume 8.8 fL (7.4-10.4); Platelet Count 191 thou/uL (130-400); Red Blood Cell (RBC) Count 3.51 mill/uL (4.70-6.10); White Blood Cell (WBC) Count 6.5 thou/uL (4.8-10.8)
[2019-07-06] MEDS ORDERED: Morphine 4 MG/ML VIAL ONE ×2 (01:39→08:47)
[2019-07-06] MEDS ORDERED: Ondansetron PF 4 MG/2 ML Vial ONE (01:39)
[2019-07-06 01:44] LABS: ALT (SGPT) 12 U/L (8-55); AST (SGOT) 15 U/L (5-34); Albumin 3.8 g/dL (3.4-4.8); Alkaline Phosphatase 109 U/L (40-110); Anion Gap 12 mmol/L (10-20); BUN (Urea Nitrogen) 16 mg/dL (8.4-25.7); Bilirubin, Total 0.2 mg/dL (0.2-1.2); Calc. Creatinine Clearance 0 mL/min (70-130); Carbon Dioxide 28 mmol/L (23-31); Chloride 98 mmol/L (98-107); Estimated GFR-MDRD 75; Globulin 3.3 g/dL (2.4-3.5); Glucose 217 mg/dL (83-110); Potassium 4.6 mmol/L (3.5-5.1); Protein, Total 7.1 g/dL (5.8-8.1); Sodium 133 mmol/L (136-145)
[2019-07-06] MEDS ORDERED: hydrALAZINE 20 MG/ML VIAL ONE ×2 (05:14→10:16)
--- NOTE | 2019-07-06 07:48 | CT ---
PRELIMINARY REPORT/[facility]/EMERGENCY AFTER HOURS PROCEDURE: EXAM: CT Head Without Intravenous Contrast. CLINICAL HISTORY: Patient presents for evaluation of numbness, to the upper left arm, to the left elbow, to the left fo rearm, to the left wrist, to the left hand, to the left upper leg, to the left knee, to the left lowe r leg, to the left ankle, to the left foot. TECHNIQUE: Axial computed tomography images of the head/brain without intravenous contrast. COMPARISON: None provided. FINDINGS: BRAIN: No acute intraparenchymal hemorrhage. No mass lesion. No CT evidence for acute territorial inf arct. No midline shift or extra-axial collection. Punctate hypodensity within the left basal ganglia may represent small old lacunar infarct versus dilated perivascular space. VENTRICLES: No hydrocephalus. ORBITS: The orbits are unremarkable. Postoperative appearance of both globes from lens extraction. SINUSES AND MASTOIDS: The paranasal sinuses and mastoid air cells are clear. SOFT TISSUES: No significant facial or scalp soft tissue swelling evident. No radiopaque foreign body is seen. BONES: No acute skull fracture. IMPRESSION: No acute intracranial abnormality. ELECTRONICALLY SIGNED BY: Reynold Ayala M.D. Jul 06, 2019 1:43:44 AM CDT This report is intended for review by the ordering physician only, in accordance of law. If you recei ve this report in error, please call [facility] at [phone]. FINAL REPORT EMERGENCY AFTER HOURS CT BRAIN: I agree with the preliminary report provided by [facility]. No acute infarct, hemorrhage, or hy drocephalus present. There is mild generalized cerebral atrophy, which is stable to comparison dated 12/03/2018. POS:
--- NOTE | 2019-07-06 08:00 | RAD ---
CHEST 1 VIEW: INDICATION: Tingling in the left chest with pain in the right shoulder and shortness of breath. COMPARISON: Prior exam dated 12/04/2018. FINDINGS: Lungs are clear. Endovascular stent involving the aortic valvular prosthesis is stable-appearing. H eart size is normal. No pleural effusion is evident. No acute osseous abnormality is evident. IMPRESSION: No definite acute cardiopulmonary abnormality. POS: BH
== END 2019-07-06 10:36 | disposition left against medical advice (07) ==
LOC: ERS 00:33
DX: G45.9 Transient cerebral ischemic attack, unspecified (principal); I16.0 Hypertensive urgency; Z71.6 Tobacco abuse counseling; E11.9 Type 2 diabetes mellitus without complications; E03.9 Hypothyroidism, unspecified; E78.5 Hyperlipidemia, unspecified; I11.0 Hypertensive heart disease with heart failure; I50.9 Heart failure, unspecified; I25.2 Old myocardial infarction; F41.9 Anxiety disorder, unspecified; F17.210 Nicotine dependence, cigarettes, uncomplicated; Z79.899 Other long term (current) drug therapy
CPT/HCPCS: 36415; 70450; 71045; 80053; 83880; 84484; 85025; 93005; 96374; 96375; 96376; 99406; J0360; J2270; J2405

== ENCOUNTER 2019-09-16 06:34 | Inpatient (IN) | payer MEDICARE, OTHER ==
[2019-09-16] MEDS ORDERED: cefTRIAXone\\ROCEPHIN 2 GM VIAL ONE (08:52)
[2019-09-16] MEDS ORDERED: Azithromycin 500 MG VIAL ONE (08:52)
[2019-09-16] MEDS ORDERED: Enoxaparin Sodium 100 MG/ML SYRINGE ONE (08:53)
[2019-09-16 09:20] LABS: #Eosinphils 0.5 thou/uL (0.0-0.7); #Monocytes 0.8 thou/uL (0.11-0.59); #Neutrophils 4.7 thou/uL (1.40-6.50); %Basophils 0.5 % (0.0-1.0); %Eosinophils 6.5 % (0.0-10.0); %Lymphocytes 25.4 % (21.0-51.0); %Monocytes 9.5 % (0.0-10.0); %Neutrophils 58.1 % (42.0-75.0); Hemoglobin 8.7 g/dL (14.0-18.0); Mean Corpuscular HGB CONC 32.9 g/dL (32.0-36.0); Mean Corpuscular Hemoglobin 33.1 pg (27.0-31.0); Mean Platelet Volume 8.7 fL (7.4-10.4); Platelet Count 170 thou/uL (130-400); Red Blood Cell (RBC) Count 2.61 mill/uL (4.70-6.10)
[2019-09-16] MEDS ORDERED: Enoxaparin Sodium 80 MG/0.8 ML SYRINGE ONE (09:20)
[2019-09-16] MEDS ORDERED: Morphine 4 MG/ML VIAL ONE (09:33)
[2019-09-16] MEDS ORDERED: Ondansetron PF 4 MG/2 ML Vial ONE (09:33)
[2019-09-16 10:06] LABS: CKMB 3.2 ng/mL (0-6.6)
[2019-09-16] MEDS ORDERED: Acetaminophen 325 MG TAB PO PRN ×2 (13:13→16:52)
[2019-09-16] MEDS ORDERED: Ondansetron ODT 4 MG TAB SL PRN (13:13)
[2019-09-16] MEDS ORDERED: Ondansetron PF 4 MG/2 ML Vial IVP PRN (13:13)
[2019-09-16 15:11] LABS: Troponin I 0.247 ng/mL (< 0.028)
[2019-09-16] MEDS: Carvedilol 6.25 MG TAB PO SCH (16:26)
[2019-09-16] MEDS ORDERED: Clopidogrel Bisulfate 75 MG TAB PO SCH (16:30)
[2019-09-16] MEDS ORDERED: Nitroglycerin 0.4 MG TAB (25 Tab Bottle) PO PRN (16:51)
[2019-09-16] MEDS ORDERED: Calcium Carbonate 500 MG ChewTAB PO PRN (16:52)
[2019-09-16 17:52] LABS: SARS-CoV-2 MS2 Positive; SARS-CoV-2 N Gene Negative; SARS-CoV-2 S Gene Negative; SARS-CoV-2 orf1ab Negative
[2019-09-16 19:46] LABS: Troponin I 0.154 ng/mL (< 0.028)
[2019-09-16] MEDS ORDERED: Dextrose 50% Abboject 50 ML SYRINGE SLOW IVP PRN (19:56)
[2019-09-16] MEDS ORDERED: Dextrose 5% in Water 1,000 ML IV PRN (19:56)
[2019-09-16] MEDS: Doxycycline 100 MG CAP PO SCH (20:27)
--- NOTE | 2019-09-16 20:27 | HP ---
PRIMARY CARE PHYSICIAN: [facility]. CHIEF COMPLAINT: Chest discomfort. HISTORY OF PRESENT ILLNESS: Patient is a 74-year-old male, with hypertension; coronary artery disease; and diabetes mellitus, type 2, presented to [facility] with chest discomfort. The chest discomfort has been ongoing for 1 to 2 days. It feels like tightness. He has associated shortness of breath. The chest discomfort is moderate in intensity without any radiation. He denies any lightheadedness, nausea, vomiting, or diaphoresis. No recent immobilization or travel reported. He is compliant with all of his medications. No fever, chills, or sick contacts reported. His EKG in the emergency room at [facility] showed sinus rhythm with nonspecific ST-T wave changes. He received aspirin by EMS. He also received 4 mg of morphine. One unit of PRBC was transfused for hemoglobin of 7.5 prior to admission. A CT angiogram of the chest was done at [facility] that showed right upper lobe infiltrate with a spiculated region in the left upper lobe. The patient states that he was told in the remote past that he has lung scarring bilaterally. Patient denies any cough, orthopnea, or leg swelling at this time. PAST MEDICAL HISTORY: 1. Hypertension. 2. Coronary artery disease. 3. Diabetes mellitus, type 2. 4. History of cirrhosis due to alcohol. 5. History of epidural abscess. 6. History of GI bleeding. 7. Hypothyroidism. 8. History of CVA. 9. Anxiety. PAST SURGICAL HISTORY: 1. Cholecystectomy. 2. Amputation of first and second toes of the right and toes of the left foot. Partial amputation of the right foot in June 2019. 3. Recent aortic valve surgery. ALLERGIES: NO KNOWN DRUG ALLERGIES. CURRENT HOME MEDICATIONS: Patient is unable to recall all of the medications. We will try to obtain from the pharmacy. SOCIAL HISTORY: Patient smokes up to 1-1/2 packs a day. Denies any alcohol or drug use. FAMILY HISTORY: Positive for diabetes mellitus, type 2. REVIEW OF SYSTEMS: All other review of systems was reviewed and was negative. PHYSICAL EXAMINATION: VITAL SIGNS: Current vital signs showed temperature 97.2, pulse of 89, respirations of 18, blood pressure of 142/62, with O2 saturation 99% on room air. GENERAL: A 74-year-old male, in no apparent distress. HEENT: Head, atraumatic and normocephalic. Sclerae anicteric. Moist mucous membranes. No oral lesion. NECK: Supple. No JVD appreciated. No carotid bruit. LUNGS: Showed scattered rhonchi with few rales. No wheezing. No accessory muscle use. HEART: S1, S2 present. Regular rate and rhythm. No rubs or gallops. ABDOMEN: Soft, nontender. Bowel sounds present. No rebound or guarding. EXTREMITIES: Right foot dressing noted. No calf edema or tenderness. NEUROLOGIC: Grossly nonfocal. Moves all 4 extremities. PSYCHIATRY: Alert, awake, and oriented x3. SKIN: Warm and dry. LYMPH NODES: No palpable lymph nodes in the neck. PERIPHERAL VASCULAR: Radial pulses palpable bilaterally. LABORATORY FINDINGS: CBC showed WBC 5.9 with hemoglobin 7.5, before transfusion, after transfusion 8.7; platelet 187. PT/INR, PTT normal range. Troponin maximum was 0.312 with CK-MB of 3.2. BUN of 39 and creatinine 1.1. COVID testing was negative. Stool for occult blood was negative. X-ray of the foot has been done, report pending at this time. Chest x-ray by my review was negative for infiltrate. EKG by my review, as discussed above. IMPRESSION: 1. Chest discomfort, rule out acute coronary syndrome. 2. Elevated troponin. 3. Right upper lobe pneumonia, suspected gram-negative organism. 4. Left upper lobe spiculated lesion in the lung. 5. Ongoing tobacco abuse. 6. History of methicillin-resistant Staphylococcus aureus Staph bacteremia secondary to epidural abscess. 7. Alcoholic cirrhosis. 8. Hypertension. 9. Diabetes mellitus, type 2. 10. History of splenic abscess. 11. Peripheral vascular disease with bilateral foot amputation. 12. Coronary artery disease. 13. History of upper gastrointestinal bleed. PLAN: 1. Patient will be monitored on the telemetry unit. COVID testing is pending at this time. We will continue empiric antibiotics, which were started in the in the emergency room. Echocardiogram will be obtained. Cardiology will be consulted. We will resume home medications once verified. 2. Patient will require at least two days for stabilization. 3. Code status. Full code. 4. Surrogate decision maker. Patient makes his own decision with the help of his family. Job ID: [id number]
[2019-09-16] MEDS: Gabapentin 300 MG CAP PO SCH (20:28)
[2019-09-16] MEDS: Atorvastatin Calcium 40 MG TAB PO SCH (20:28)
[2019-09-16] MEDS: Lisinopril 10 MG TAB PO SCH (20:28)
[2019-09-16] MEDS: Cefepime 1 GM in Sodium Chloride 0.9% 100 ML IVPB SCH (20:56)
[2019-09-16] MEDS ORDERED: Lisinopril 20 MG TAB PO SCH (21:00)
[2019-09-16] MEDS: traZODone HCl 50 MG TAB PO SCH (22:12)
[2019-09-16] MEDS: Insulin Regular 300 UNITS/3 ML VIAL SC PRN (22:13)
[2019-09-16] MEDS: traMADol HCl 50 MG TAB PO SCH (22:13)
--- NOTE | 2019-09-16 23:05 | CON ---
DATE OF CONSULTATION: HISTORY OF PRESENT ILLNESS: The patient is a 74-year-old gentleman, who presents for evaluation of chest discomfort and dyspnea. The patient has a long history of coronary artery disease. He previously underwent cardiac catheterization in 2018. He was found to have severe three-vessel coronary artery disease. He underwent a Cardiothoracic Surgery consultation. He was felt to be at a prohibited risk for undergoing coronary artery bypass graft surgery. The patient subsequently has been on medical therapy. He has been admitted on several occasions with a non-Q- wave myocardial infarction. The patient presents once again with recurrent left -sided chest discomfort. He became extremely dyspneic. The patient presented to the emergency room for further evaluation. PAST MEDICAL HISTORY: 1. Coronary artery disease. 2. Peripheral vascular disease. 3. Hypertension. 4. Diabetes mellitus. 5. Cirrhosis. 6. History of GI hemorrhages. PAST SURGICAL HISTORY: Foot amputation and cholecystectomy. SOCIAL HISTORY: Long history of tobacco abuse. MEDICATIONS: See nursing list. ALLERGIES: NO KNOWN DRUG ALLERGIES. FAMILY HISTORY: Positive family history of coronary artery disease. REVIEW OF SYSTEMS: Ten-point system otherwise is unremarkable. PHYSICAL EXAMINATION: GENERAL: Elderly gentleman, in no acute distress. VITAL SIGNS: Blood pressure 142/62. NECK: No jugular venous distention. LUNGS: Coarse breath sounds bilaterally. HEART: Regular rate and rhythm. Normal S1, S2. 2/6 systolic murmur. ABDOMEN: Nondistended. EXTREMITIES: Showed no edema. He has a bandage on the right toes. He is status post amputation. VASCULAR: Radial pulses are 2+. LABORATORY RESULTS: White blood cell count was 8.0, hemoglobin 8.7, hematocrit 26.3, and platelets were 170. Sodium was 136, potassium 4.4, chloride 102, bicarbonate 25, BUN 39, creatinine 1.1, and glucose 294. Troponin was 0.3125. EKG normal sinus rhythm, nonspecific ST abnormality. IMPRESSION: 1. Non-Q-wave myocardial infarction. 2. Severe inoperable three-vessel coronary artery disease. 3. Aortic stenosis. 4. Peripheral vascular disease. 5. Cirrhosis. 6. Diabetes mellitus. 7. Hypertension. This gentleman presents with a small non-Q-wave myocardial infarction. The patient will be restarted on his medications. The patient will be treated medically. The patient received a dose of Lovenox. We would recommend placing on nitrates. We will follow this patient with you through his hospitalization. Job ID: [id number] MTDD
[2019-09-17 05:10] LABS: #Eosinphils 0.4 thou/uL (0.0-0.7); #Lymphocytes 1.7 thou/uL (1.20-3.40); #Monocytes 0.6 thou/uL (0.11-0.59); #Neutrophils 2.8 thou/uL (1.40-6.50); %Basophils 0.8 % (0.0-1.0); %Eosinophils 6.9 % (0.0-10.0); %Lymphocytes 31.3 % (21.0-51.0); %Monocytes 10.4 % (0.0-10.0); %Neutrophils 50.6 % (42.0-75.0); Hemoglobin 8.2 g/dL (14.0-18.0); Mean Corpuscular HGB CONC 32.2 g/dL (32.0-36.0); Mean Corpuscular Hemoglobin 32.1 pg (27.0-31.0); Mean Corpuscular Volume 99.7 fL (78.0-98.0); Mean Platelet Volume 8.6 fL (7.4-10.4); Platelet Count 151 thou/uL (130-400); RBC Distribution Width 15.3 % (11.5-14.5); Red Blood Cell (RBC) Count 2.55 mill/uL (4.70-6.10); White Blood Cell (WBC) Count 5.6 thou/uL (4.8-10.8)
[2019-09-17 05:32] LABS: ALT (SGPT) 11 U/L (8-55); AST (SGOT) 15 U/L (5-34); Albumin 3.7 g/dL (3.4-4.8); Alkaline Phosphatase 75 U/L (40-110); Anion Gap 11 mmol/L (10-20); BUN (Urea Nitrogen) 17 mg/dL (8.4-25.7); Bilirubin, Total 0.3 mg/dL (0.2-1.2); Calc. Creatinine Clearance 77 mL/min (70-130); Calcium 8.9 mg/dL (7.8-10.44); Carbon Dioxide 27 mmol/L (23-31); Chloride 101 mmol/L (98-107); Estimated GFR-MDRD 73; Globulin 3.2 g/dL (2.4-3.5); Glucose 205 mg/dL (83-110); Magnesium 1.7 mg/dL (1.6-2.6); Potassium 4.1 mmol/L (3.5-5.1); Protein, Total 6.9 g/dL (5.8-8.1); Sodium 135 mmol/L (136-145)
[2019-09-17] MEDS: Insulin Regular 300 UNITS/3 ML VIAL SC PRN ×4 (05:51→21:26)
[2019-09-17] MEDS: Levothyroxine Sodium 100 MCG TAB PO SCH (05:51)
--- NOTE | 2019-09-17 07:13 | RAD ---
Exam:3 views right HISTORY: Recent amputation COMPARISON: 10/15/2017 FINDINGS: Findings compatible with amputation of all 5 digits. Mild bone demineralization. No radiogr aphic evidence of osteomyelitis. IMPRESSION: Postsurgical changes compatible with amputation of all 5 digits.
[2019-09-17] MEDS: Gabapentin 300 MG CAP PO SCH ×2 (08:37→20:30)
[2019-09-17] MEDS: traMADol HCl 50 MG TAB PO SCH ×3 (08:37→20:33)
[2019-09-17] MEDS: Lisinopril 10 MG TAB PO SCH ×2 (08:38→20:31)
[2019-09-17] MEDS: Doxycycline 100 MG CAP PO SCH ×2 (08:38→20:30)
[2019-09-17] MEDS: Clopidogrel Bisulfate 75 MG TAB PO SCH (08:38)
[2019-09-17] MEDS: Cefepime 1 GM in Sodium Chloride 0.9% 100 ML IVPB SCH ×2 (08:39→20:30)
[2019-09-17] MEDS: Aspirin 81 mg Enteric Coated Tablet PO SCH (08:39)
[2019-09-17] MEDS: Carvedilol 6.25 MG TAB PO SCH ×2 (08:40→16:02)
[2019-09-17] MEDS ORDERED: Isosorbide Mononitrate (ER) 30 MG TAB PO SCH (13:15)
--- NOTE | 2019-09-17 13:59 | PDOC.HOSPP ---
- Subjective Encounter Date: 09/17/19 Encounter Time: 07:40 Subjective: Pt seen for followup re: NSTEMI. Reports he feels better. - Objective Vital Signs & Weight: Vital Signs (12 hours) Temp Pulse Resp BP BP BP Pulse Ox 09/17/19 10:00 98.5 F 75 18 133/67 96 09/17/19 08:40 136/65 09/17/19 08:38 136/65 09/17/19 06:40 97.5 F L 85 16 107/62 97 09/17/19 04:17 97.9 F 84 16 146/66 H 95 Weight Weight 184 lb 9.6 oz I&O: 09/16/19 09/17/19 09/18/19 06:59 06:59 06:59 Intake Total 1060 Output Total 950 Balance 110 Result Diagrams: 09/17/19 04:58 09/17/19 04:58 Additional Labs: Accuchecks 09/17/19 09/17/19 10:20 00:18 POC Glucose 353 H 308 H Labs and MARs reviewed by me EKG Reviewed by me: Yes (Tele; NSR) Hospitalist ROS - Review of Systems Constitutional: denies: fever, chills, sweats, weakness, malaise Respiratory: reports: SOB with excertion. denies: cough, dry, shortness of breath, hemoptysis, pleuritic pain, sputum, wheezing Cardiovascular: reports: chest pain. denies: palpitations, orthopnea, paroxysmal noc. dyspnea, edema, light headedness Genitourinary: denies: dysuria, frequency, incontinence, hematuria, retention Skin: denies: rash, lesions, anu, bruising - Medication Medications: Active Medications Generic Name Dose Route Start Last Admin Trade Name Freq PRN Reason Stop Dose Admin Aspirin 81 mg 09/17/19 09:00 09/17/19 08:39 Ecotrin PO 81 mg DAILY MICHAELA Administration Atorvastatin Calcium 40 mg 09/16/19 21:00 09/16/19 20:28 Lipitor PO 40 mg HS MICHAELA Administration Carvedilol 6.25 mg 09/16/19 17:00 09/17/19 08:40 Coreg PO 6.25 mg BID-WM MICHAELA Administration Clopidogrel Bisulfate 75 mg 09/17/19 09:00 09/17/19 08:38 Plavix PO 75 mg DAILY MICHAELA Administration Doxycycline Hyclate 100 mg 09/16/19 21:00 09/17/19 08:38 Vibramycin PO 100 mg BID MICHAELA Administration Gabapentin 600 mg 09/16/19 21:00 09/17/19 08:37 Neurontin PO Not Given BID MICHAELA Cefepime HCl 1 gm/ Sodium 100 mls @ 200 mls/hr 09/16/19 20:00 09/17/19 08:39 Chloride IVPB 100 mls 0800,1999 MICHAELA Administration Insulin Human Regular 0 units 09/16/19 19:56 09/17/19 11:13 Humulin R SC 6 unit .MILD SLIDING SCALE PRN Administration Mild Correctional Scale Insulin Human Regular 0 units 09/16/19 19:56 09/16/19 22:13 Humulin R SC 5 unit .BEDTIME SLIDING SC PRN Administration Bedtime Correctional Scale Isosorbide Mononitrate 30 mg 09/17/19 13:15 09/17/19 13:30 Imdur Er PO 09/17/19 15:15 30 mg NOW MICHAELA Administration Levothyroxine Sodium 200 mcg 09/17/19 06:00 09/17/19 05:51 Synthroid PO 200 mcg 0600 MICHAELA Administration Lisinopril 10 mg 09/16/19 21:00 09/17/19 08:38 Zestril PO 10 mg BID MICHAELA Administration Pantoprazole Sodium 40 mg 09/17/19 09:00 09/17/19 08:39 Protonix PO 40 mg DAILY MICHAELA Administration Tramadol HCl 50 mg 09/16/19 21:00 09/17/19 08:37 Ultram PO Not Given TID MICHAELA Trazodone HCl 75 mg 09/16/19 21:00 09/16/19 22:12 Desyrel PO Not Given HS [facility] - Exam General Appearance: awake alert Eye: anicteric sclera ENT: moist mucosa Neck: supple, symmetric, no thyromegaly, no lymphadenopathy Heart: RRR, no gallops, no rubs, normal peripheral pulses Respiratory: CTAB, no wheezes, no rales, no ronchi, normal chest expansion Gastrointestinal: soft, non-tender, non-distended, normal bowel sounds Psychiatric: normal affect, normal behavior Hosp A/P (1) NSTEMI (non-ST elevated myocardial infarction) Code(s): I21.4 - NON-ST ELEVATION (NSTEMI) MYOCARDIAL INFARCTION Status: Acute (2) Right upper lobe pneumonia Code(s): J18.9 - PNEUMONIA, UNSPECIFIED ORGANISM Status: Acute (3) DM type 2 (diabetes mellitus, type 2) Status: Chronic Qualifiers: Diabetes mellitus correction insulin use: with intermediate manager use Diabetes mellitus complication status: without complication Qualified Code(s): E11.9 - Type 2 diabetes mellitus without complications; Z79.4 - manager intermediate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 (4) HTN (hypertension) Code(s): I10 - ESSENTIAL (PRIMARY) HYPERTENSION Status: Chronic (5) GERD (gastroesophageal reflux disease) Code(s): K21.9 - GASTRO-ESOPHAGEAL REFLUX DISEASE WITHOUT ESOPHAGITIS Status: Chronic (6) Hypothyroidism Code(s): E03.9 - HYPOTHYROIDISM, UNSPECIFIED Status: Chronic (7) Lung nodule Code(s): R91.1 - SOLITARY PULMONARY NODULE Status: Chronic (8) PVD (peripheral vascular disease) Code(s): I73.9 - PERIPHERAL VASCULAR DISEASE, UNSPECIFIED Status: Chronic (9) 3-vessel CAD Status: Chronic (10) Dyslipidemia Code(s): E78.5 - HYPERLIPIDEMIA, UNSPECIFIED Status: Chronic - Plan continue antibiotics Continue cefepime and doxycycline. Cardiology/PCCM consulted. Blood sugars high, switch to aggresssive insulin sliding scale. HTN controlled. Continue Lipitor for dyslipidemia. Continue synthroid for hypothyroidism.
[2019-09-17 14:07] VITALS: BMI 25.0
--- NOTE | 2019-09-17 15:29 | CON ---
DATE OF CONSULTATION: HISTORY OF PRESENT ILLNESS: John Cruz is a 74-year-old male. He was last seen by me in 2018. He had bilateral upper lobe nodular densities that were followed at the [facility] dating back to 2014. These had mild PET positivity. The IN was contemplating resecting one of the nodules, but this never happened. He never followed up with me. He primarily gets his care at the [facility], but he has had a significant amount of care here when he becomes acutely ill going back several years. There are dozens of dictations regarding his care in 2018 and 2019. I was consulted for an abnormal chest CT. PAST MEDICAL HISTORY: Remarkable for; 1. Coronary artery disease, deemed inoperable because of multiple medical problems by Dr. Rose in 2018. 2. Aortic stenosis. 3. History of multiple admissions with chest pain and non-Q-wave myocardial infarctions. 4. Peripheral vascular disease, status post multiple toe amputations. 5. Hypertension. 6. Diabetes. 7. Cirrhosis secondary to heavy alcohol abuse with past GI bleeds. 8. History of cholecystectomy. FAMILY HISTORY: Negative for lung disease in early age. REVIEW OF SYSTEMS: Otherwise negative. PHYSICAL EXAMINATION: GENERAL: He currently denies chest discomfort. VITAL SIGNS: He is afebrile. Heart rate 75, blood pressure 136/65, oximetry is 96% on room air. HEAD AND NECK: Unremarkable. LUNGS: Clear. HEART: Regular rhythm. ABDOMEN: Soft. EXTREMITIES: Without asymmetry. DIAGNOSTIC STUDIES: CT was reviewed. White count 5.6, hemoglobin 8.2, platelets 151. Electrolytes are unremarkable. Glucose is elevated. Chest CT compared to [address] in 2018 showed a 1.2 cm nodular density in the right upper lobe and 1.8 cm density in the left upper lobe. CT done on September 15 shows a 1.5 cm mass in the left upper lobe. There is a density in the right upper lobe as well. IMPRESSION: Upper lobe masses, present for 6 years. There has been no dramatic growth. There is a 3 mm difference in size on the recent CT, but . He has been getting all of his care at the [facility] and saw me only briefly after he was in the hospital in 2018. He can have them follow this up as I have explained to him. There is no indication for acute intervention at this time. Job ID: [id number]
--- NOTE | 2019-09-17 15:36 | EKG ---
Test Reason : Blood Pressure : / mmHG Vent. Rate : 093 BPM Atrial Rate : 093 BPM P-R Int : 144 ms QRS Dur : 088 ms QT Int : 364 ms P-R-T Axes : 067 012 065 degrees QTc Int : 452 ms Normal sinus rhythm Nonspecific ST abnormality Abnormal ECG Confirmed by KARSON VALERIO ([id number]), internal audit consultant JEET RIGGS ([id number]) on 09/17/2019 3:35:48 PM Referred By: Confirmed By:KARSON VALERIO
[2019-09-17] MEDS: Atorvastatin Calcium 40 MG TAB PO SCH (20:30)
[2019-09-17] MEDS: traZODone HCl 50 MG TAB PO SCH (23:09)
[2019-09-18 05:05] LABS: #Eosinphils 0.4 thou/uL (0.0-0.7); #Lymphocytes 1.7 thou/uL (1.20-3.40); #Monocytes 0.5 thou/uL (0.11-0.59); #Neutrophils 1.6 thou/uL (1.40-6.50); %Basophils 0.2 % (0.0-1.0); %Lymphocytes 39.1 % (21.0-51.0); %Monocytes 12.2 % (0.0-10.0); %Neutrophils 38.6 % (42.0-75.0); Hemoglobin 7.4 g/dL (14.0-18.0); Mean Corpuscular HGB CONC 31.9 g/dL (32.0-36.0); Mean Corpuscular Hemoglobin 32.2 pg (27.0-31.0); Mean Platelet Volume 9.3 fL (7.4-10.4); Platelet Count 151 thou/uL (130-400); RBC Distribution Width 15.3 % (11.5-14.5); Red Blood Cell (RBC) Count 2.31 mill/uL (4.70-6.10); White Blood Cell (WBC) Count 4.3 thou/uL (4.8-10.8)
[2019-09-18 05:26] LABS: ALT (SGPT) 13 U/L (8-55); AST (SGOT) 18 U/L (5-34); Albumin 3.3 g/dL (3.4-4.8); Alkaline Phosphatase 68 U/L (40-110); Anion Gap 8 mmol/L (10-20); BUN (Urea Nitrogen) 16 mg/dL (8.4-25.7); Bilirubin, Total 0.3 mg/dL (0.2-1.2); Calc. Creatinine Clearance 71 mL/min (70-130); Calcium 8.6 mg/dL (7.8-10.44); Carbon Dioxide 27 mmol/L (23-31); Chloride 106 mmol/L (98-107); Estimated GFR-MDRD 67; Globulin 2.9 g/dL (2.4-3.5); Glucose 210 mg/dL (83-110); Potassium 4.4 mmol/L (3.5-5.1); Protein, Total 6.2 g/dL (5.8-8.1); Sodium 137 mmol/L (136-145)
[2019-09-18] MEDS: Levothyroxine Sodium 100 MCG TAB PO SCH (05:48)
[2019-09-18] MEDS: Insulin Regular 300 UNITS/3 ML VIAL SC PRN ×2 (05:48→11:08)
[2019-09-18] MEDS ORDERED: Isosorbide Mononitrate (ER) 30 MG TAB PO SCH (09:00)
[2019-09-18] MEDS: Aspirin 81 mg Enteric Coated Tablet PO SCH (09:20)
[2019-09-18] MEDS: traMADol HCl 50 MG TAB PO SCH ×2 (09:20→14:59)
[2019-09-18] MEDS: Gabapentin 300 MG CAP PO SCH (09:20)
[2019-09-18] MEDS: Carvedilol 6.25 MG TAB PO SCH ×2 (09:21→16:56)
[2019-09-18] MEDS: Lisinopril 10 MG TAB PO SCH (09:22)
[2019-09-18] MEDS: Clopidogrel Bisulfate 75 MG TAB PO SCH (09:22)
[2019-09-18] MEDS: Doxycycline 100 MG CAP PO SCH (09:23)
[2019-09-18] MEDS: Cefepime 1 GM in Sodium Chloride 0.9% 100 ML IVPB SCH (09:24)
--- NOTE | 2019-09-18 15:07 | PDOC.CPN ---
- Subjective Date: 09/18/19 Time: 10:00 Interval history: The pt seen and examined. No overnight events. No cardiac complaints. - Objective Allergies/Adverse Reactions: Allergies Allergy/AdvReac Type Severity Reaction Status Date / Time No Known Allergies Allergy Verified 09/16/19 14:48 Visit Medications: Current Medications Acetaminophen (Tylenol) 650 mg PO Q4H PRN PRN Reason: Headache/Fever/Mild Pain (1-3) Aspirin (Ecotrin) 81 mg PO DAILY [facility] Last Admin: 09/18/19 09:20 Dose: 81 mg Atorvastatin Calcium (Lipitor) 40 mg PO HS [facility] Last Admin: 09/17/19 20:30 Dose: 40 mg Calcium Carbonate (Tums) 1,000 mg PO Q4H PRN PRN Reason: Heartburn or Indigestion Carvedilol (Coreg) 6.25 mg PO BID-[facility] Last Admin: 09/18/19 09:21 Dose: 6.25 mg Clopidogrel Bisulfate (Plavix) 75 mg PO DAILY [facility] Last Admin: 09/18/19 09:22 Dose: 75 mg Dextrose/Water (Dextrose 50%) 25 gm SLOW IVP PRN PRN PRN Reason: Hypoglycemia Gabapentin (Neurontin) 600 mg PO BID [facility] Last Admin: 09/18/19 09:20 Dose: 600 mg Glucagon (Glucagon) 1 mg IM PRN PRN PRN Reason: Hypoglycemia Dextrose/Water (D5w) 1,000 mls @ 0 mls/hr IV .Q0M PRN PRN Reason: Hypoglycemia Insulin Human Regular (Humulin R) 0 units SC .BEDTIME SLIDING SC PRN PRN Reason: Bedtime Correctional Scale Last Admin: 09/17/19 21:26 Dose: 4 unit Insulin Human Regular (Humulin R) 0 units SC .AGGRESSIVE SLIDING PRN PRN Reason: Aggressive Correctional Scale Last Admin: 09/18/19 11:08 Dose: 11 unit Isosorbide Mononitrate (Imdur Er) 30 mg PO DAILY [facility] Last Admin: 09/18/19 09:23 Dose: 30 mg Levofloxacin (Levaquin) 750 mg PO 0600 [facility] Levothyroxine Sodium (Synthroid) 200 mcg PO 0600 [facility] Last Admin: 09/18/19 05:48 Dose: 200 mcg Lisinopril (Zestril) 10 mg PO BID [facility] Last Admin: 09/18/19 09:22 Dose: 10 mg Nitroglycerin (Nitrostat) 0.4 mg PO Q5MIN PRN PRN Reason: Chest Pain Pantoprazole Sodium (Protonix) 40 mg PO DAILY [facility] Last Admin: 09/18/19 09:22 Dose: 40 mg Sodium Chloride (Flush - Normal Saline) 10 ml IVF PRN PRN PRN Reason: Saline Flush Tramadol HCl (Ultram) 50 mg PO TID [facility] Last Admin: 09/18/19 14:59 Dose: 50 mg Trazodone HCl (Desyrel) 75 mg PO HS [facility] Last Admin: 09/17/19 23:09 Dose: 75 mg Vital Signs & Weight: Vital Signs Temp Pulse Resp BP BP Pulse Ox 09/18/19 11:31 97.5 F L 83 16 116/63 99 09/18/19 09:22 131/64 09/18/19 09:21 131/64 09/18/19 07:40 97.8 F 86 18 131/64 93 L 09/18/19 03:53 98.3 F 75 18 138/64 95 Admit Weight 184 lb 9.6 oz Weight 184 lb 9.6 oz - Physical Exam General: alert & oriented x3 HEENT: mucus membranes moist Neck: supple neck Cardiac: regular rate and rhythm, S1/S2 Lungs: decreased breath sounds Neuro: cranial nerve 2-12 intact Extremities: no edema, other: (Dressing to Lt foot 2/2 s/p toe amputation about 4 wks ago) - Labs Result Diagrams: 09/18/19 04:49 09/18/19 04:49 Troponin/CKMB CK-MB (CK-2) 3.2 ng/mL (0-6.6) 09/16/19 09:09 Troponin I 0.154 ng/mL (< 0.028) H 09/16/19 19:05 - Telemetry Sinus rhythms and dysrhythmias: sinus rhythm - Assessment/Plan Assessment/Plan: 1. NSTEMI - Asymptomatic; On Imdur 2. severe 3V CAD with s/p stent x1 in 2018 at [facility], [place] - asymptomatic; On Coreg, Lisinopril, ASA, Statin, and Plavix 3. Nodular densisites in bilat upper lobe 4. COPD 5. Cirrhosis 2/2 ETOH abuse with hx of GI bleed 6. HTN - stable 7. PVD with s/p multiple toe amputations - on ABX and Plavix and ASA 8. DM type 2 - 9. Hypothyroidism 10. PNA 11. Severe with s/p TAVR in 2019 at [facility] in [place], [place] 12. Current smoker - cont. smoking 1/2 pk a day; strongly recommend smoking cessation MAR reviewed * From Cardiac standpoint, the pt is stable to d/c home if Echo shows stable * The pt stated he will f/u with his [facility] in [place] system
[2019-09-18 15:43] VITALS: BP 101/60; TEMP 97.6
--- NOTE | 2019-09-19 02:58 | DIS ---
DATE OF ADMISSION: 09/16/2019 DATE OF DISCHARGE: 09/18/2019 DISCHARGE DIAGNOSES: 1. Yzr-GJ-whkjgxhbu myocardial infarction. 2. Right upper lobe pneumonia. 3. Upper lung lobe masses. CONDITION OF PATIENT ON THE DAY OF DISCHARGE: Stable. I assessed Mr. Cruz on the day of discharge. He denies any chest pain or shortness of breath. Vital signs are stable. S1 and S2 are heard, regular. Lungs are clear to auscultation bilaterally. DISCHARGE MEDICATIONS: He has been started on Imdur ER 30 mg daily. He will also receive levofloxacin 500 mg daily for 1 more week. The rest of his home medications include: 1. Acetaminophen p.r.n. 2. Aspirin 81 mg daily. 3. Lipitor 40 mg at bedtime. 4. Coreg 6.25 mg 2 times daily. 5. Plavix 75 mg daily. 6. Ferrous sulfate 325 mg 2 times daily. 7. Gabapentin 600 mg 2 times daily. 8. Levothyroxine 200 mcg daily. 9. Lisinopril 20 mg 2 times daily. 10. Omeprazole 20 mg daily. 11. Tramadol 50 mg 3 times daily. 12. Trazodone 75 mg at bedtime. 13. NovoLog insulin p.r.n. 14. Levemir insulin 60 units 2 times daily. CONSULTATIONS DURING THIS HOSPITALIZATION: 1. Cardiology, Dr. Tom. 2. Pulmonology, Dr. De. HOSPITAL COURSE: Mr. Cruz is a pleasant 74-year-old gentleman, who was admitted to [facility] on September 16, 2019 for [id number] myocardial infarction. Please refer to Dr. Briones's history and physical note dated September 16, 2019 for further details. He was monitored on telemetry. He was seen by Pulmonary and Critical Care Medicine as well as Cardiology services. He was also diagnosed with pneumonia and received antibiotics. Tank Carpenter recommended that Mr. Cruz follow up with his phlebotomist lab assistant at the [place]. He has been cleared for discharge by Cardiology Service. Many thanks for allowing me to participate in your patient's care. Please feel free to contact me with any questions or concerns. Post acute care followup: With primary care provider in 3 days. ACTIVITY: As tolerated. DIET: Heart healthy and diabetic. DISCHARGE DESTINATION: Home. TIME SPENT: Total amount of time spent coordinating this discharge: 32 minutes. ADDENDUM: Mr. Cruz also had a 2D echocardiogram during this hospitalization. He was found to have LVH, 1/2 diastolic dysfunction, left ventricular ejection fraction of 60% to 65%, normal right ventricular size and function, moderately dilated left atrium, normal right atrium size, mild mitral annular calcification, trace mitral regurgitation, mild periaortic valve regurgitation status post TAVR and mild tricuspid regurgitation. Job ID: [id number]
== END 2019-09-18 18:27 | disposition home or self-care (01) | DRG 280 ==
LOC: ERS 06:34 → ERHOLD 10:39 → 2SE 12:16 → 2SW 12:41 → 2NO 19:21 → 2SW 20:33 → 2SE 09-17 06:56
PROVIDERS: ADMIT Internal Medicine; ATTEND Internal Medicine
PROC: 8E0ZXY6 Isolation (ICD-10-PCS; principal; 2019-09-16)
DX: I21.4 Non-ST elevation (NSTEMI) myocardial infarction (principal); J18.9 Pneumonia, unspecified organism; J44.0 Chronic obstructive pulmonary disease with (acute) lower respiratory infection; Z20.828 Contact with and (suspected) exposure to other viral communicable diseases; I10 Essential (primary) hypertension; I25.10 Atherosclerotic heart disease of native coronary artery without angina pectoris; E11.9 Type 2 diabetes mellitus without complications; E03.9 Hypothyroidism, unspecified; F41.9 Anxiety disorder, unspecified; F17.210 Nicotine dependence, cigarettes, uncomplicated; D64.9 Anemia, unspecified; K70.30 Alcoholic cirrhosis of liver without ascites; I35.0 Nonrheumatic aortic (valve) stenosis; I73.9 Peripheral vascular disease, unspecified; R91.8 Other nonspecific abnormal finding of lung field; K21.9 Gastro-esophageal reflux disease without esophagitis; Z90.49 Acquired absence of other specified parts of digestive tract; Z89.422 Acquired absence of other left toe(s); Z89.421 Acquired absence of other right toe(s); Z86.73 Personal history of transient ischemic attack (TIA), and cerebral infarction without residual deficits; Z79.4 Long term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; Z95.5 Presence of coronary angioplasty implant and graft; Z71.6 Tobacco abuse counseling
CPT/HCPCS: 36415; 36416; 80053; 83735; 85025; 87635; 93005; 93306; 94760; 96365; 96372; 96375; J0456; J0692; J0696; J1650; J1815; J2270; J2405; J3490; U0003

== ENCOUNTER 2019-09-23 16:07 | Inpatient (IN) | payer MEDICARE, OTHER ==
[2019-09-23] MEDS ORDERED: Fentanyl 100 MCG/2 ML VIAL ONE (16:47)
[2019-09-23] MEDS ORDERED: Nitroglycerin 2% Ointment 1 INCH/1 GM Packet ONE (16:47)
[2019-09-23] MEDS ORDERED: Nitroglycerin 50 MG/250 ML BOT 250 ML ONE (16:58)
--- NOTE | 2019-09-23 17:58 | CON ---
DATE OF CONSULTATION: HISTORY OF PRESENT ILLNESS: The patient is a 74-year-old gentleman, who presents for evaluation of recurrent chest discomfort. The patient has a long history of coronary artery disease. In 2018, he underwent a cardiac catheterization and found to have diffuse three-vessel coronary artery disease. He underwent a cardiothoracic surgery consultation. He is felt to have inoperable coronary artery disease. The patient subsequently has undergone cardiac evaluation and has subsequently undergone a TAVR. The patient was admitted on several occasions with non-Q-wave myocardial infarctions. He presented last week once again with chest discomfort and dyspnea. The patient was placed on medical therapy. . The patient went home and presented with recurrent chest discomfort. PAST MEDICAL HISTORY: 1. Coronary artery disease. 2. Peripheral vascular disease. 3. Cirrhosis. 4. Hypertension. 5. Diabetes mellitus. 6. GI hemorrhage. PAST SURGICAL HISTORY: Foot amputation, cholecystectomy. SOCIAL HISTORY: Long history of tobacco abuse. ALLERGIES: NO KNOWN DRUG ALLERGIES. MEDICATIONS: See nursing list. PHYSICAL EXAMINATION: GENERAL: Ill-appearing gentleman, in acute distress. VITAL SIGNS: Blood pressure of 104/60, on IV nitroglycerin. NECK: Showed no jugular venous distention. LUNGS: Clear to auscultation. HEART: Regular rate and rhythm. Normal S1 and S2. 1/6 systolic murmur. ABDOMEN: Nondistended. EXTREMITIES: Showed no edema. LABORATORY RESULTS: His white blood cell count is 6.6, hemoglobin 7.6, hematocrit 25.0, and platelets are 219. Sodium of 140, potassium 4.3, chloride 105, bicarbonate 24, and glucose 179. Troponin was 17, CPK-MB was 29. IMPRESSION: 1. Non-Q-wave myocardial infarction. 2. Severe inoperable coronary artery disease. 3. History of transcatheter aortic valve replacement. 4. Diabetes mellitus. 5. Hypertension. PLAN: This gentleman presents with a non-Q-wave myocardial infarction. The patient was placed on IV nitroglycerin. His blood pressure remains low. The patient also has been treated with aspirin and Lovenox. The patient's prognosis is very guarded. The patient will be admitted to ICU. We will follow this patient with you through his hospitalization. This is a 30-minute critical care note. Job ID: [id number] [facility]
[2019-09-23] MEDS ORDERED: Morphine 2 MG/ML SYRINGE ONE (18:15)
[2019-09-23 18:35] LABS: Troponin I 13.881 ng/mL (< 0.028)
[2019-09-23] MEDS ORDERED: Ondansetron PF 4 MG/2 ML Vial IVP PRN (19:18)
[2019-09-23] MEDS ORDERED: Acetaminophen 325 MG TAB PO PRN (19:18)
[2019-09-23] MEDS ORDERED: Acetaminophen 650 MG Suppository PR PRN (19:18)
[2019-09-23] MEDS ORDERED: Dextrose 50% Abboject 50 ML SYRINGE SLOW IVP PRN (19:25)
[2019-09-23] MEDS ORDERED: Dextrose 5% in Water 1,000 ML IV PRN (19:25)
[2019-09-23] MEDS ORDERED: Nitroglycerin 50 MG/250 ML BOT IVPB SCH (19:30)
[2019-09-23 19:49] VITALS: BMI 25.2
--- NOTE | 2019-09-23 20:07 | HP ---
PRIMARY CARE PROVIDER: Dr. Tru Marques CHIEF COMPLAINT: Chest pain. HISTORY OF PRESENT ILLNESS: Mr. Cruz is a pleasant 74-year-old gentleman who was seen at [facility] on September 23, 2019 following transfer from emergency room at [place]. He was hospitalized at this facility from September 15 to September 18, 2019 for [id number]-jwlmmwesp myocardial infarction, right upper lobe pneumonia, and upper lung lobe masses. Please refer to my discharge summary dated September 18, 2019 for further details. He reports that he was doing well, but last night, he started having left-sided chest discomfort. He describes it as sharp, radiating down his left arm, 10/10 at its worst, no known aggravating or relieving factors. He reports that he has left shoulder arthritis and was not sure if the pain in his arm was from the arthritis or if it was a chest pain that was radiating. He also reports epigastric discomfort and took some antacid tablets without much relief. He reports shortness of breath, lightheadedness, and nausea. He denies any fevers or chills. REVIEW OF SYSTEMS: All systems were reviewed and found to be negative except for the pertinent positives mentioned above. PAST MEDICAL HISTORY: Hypertension, coronary artery disease, diabetes mellitus type 2, cirrhosis due to alcohol use, epidural abscess, GI bleed, hypothyroidism, CVA, and anxiety. SURGICAL HISTORY: Cholecystectomy, amputation of first and second toes of the right and toes of the left foot, partial amputation of the right foot in June 2019, and recent aortic valve surgery. ALLERGIES: NO KNOWN DRUG ALLERGIES. CURRENT HOME MEDICATIONS: As dictated on my discharge summary dated September 18, 2019. CODE STATUS: I discussed his code status. He is full code. FAMILY HISTORY: Significant for diabetes mellitus type 2. PHYSICAL EXAMINATION: GENERAL: Mr. Cruz is awake and alert, not in acute distress. VITAL SIGNS: Blood pressure is 116/57, pulse 91, respiratory rate 18, and oxygen saturation 99% on room air. He is afebrile. EYES: No scleral icterus, no conjunctival pallor. ENT: Moist mucosal membranes. No oropharyngeal erythema or exudates. NECK: Supple, nontender, trachea is midline. RESPIRATORY: Accessory muscles of breathing are not active. Chest wall movements are symmetric bilaterally. Lungs are clear to auscultation without wheeze, rhonchi, or crepitations. CARDIOVASCULAR: S1 and S2 are heard, regular. No pericardial rub. ABDOMEN: Soft, nontender, bowel sounds are heard. NEUROLOGIC: Cranial nerves 2 through 12 are intact. MUSCULOSKELETAL: Status post amputation of first and second toes of the right foot and toes of the left foot, and partial amputation of the right foot. SKIN: No rashes. LYMPHATIC: No cervical lymphadenopathy. PSYCHIATRIC: Normal mood, normal affect, the patient is oriented to person, place, and time. LABORATORY DATA: Mr. Cruz's labs and investigations were reviewed. I reviewed his electrocardiogram, which shows normal sinus rhythm, no ST changes to suggest an acute coronary syndrome. I also reviewed his chest x-ray, which does not show any pulmonary infiltrates. He has normal white count, macrocytic anemia with hemoglobin 7.6, normal platelet count, normal electrolytes, normal creatinine, elevated troponin I of 17.907, subsequently trended down to 13.881. ASSESSMENT AND PLAN: Mr. Cruz is a pleasant 74-year-old gentleman, who was seen at [facility] on September 23, 2019 following transfer from emergency room at [place]. His problem list includes: 1. Bwp-MH-zeogaqzik myocardial infarction: is presenting with niq-PI-wincgwnou myocardial infarction. He will be admitted to the telemetry floor for further monitoring. He has received a dose of therapeutic Lovenox at [place]. Further dose is dependent upon Cardiology Service input. He will be continued on aspirin and Plavix, which are his home medications. 2. Diabetes mellitus, type 2: I will start him on diabetic diet and start Accu-Cheks and insulin sliding scale. 3. Hypothyroidism: We will continue Synthroid. 4. Dyslipidemia: Continue Lipitor. 5. Hypertension: Continue Coreg, Imdur, and lisinopril. Monitor vital signs and titrate antihypertensives as needed. 6. Please note that the patient is currently on a nitroglycerin drip and is experiencing symptom relief. He will be admitted to critical care unit for further management. Many thanks for allowing me to participate in your patient's care. Please feel free to contact me with any questions or concerns. LEVEL OF RISK: High. LEVEL OF COMPLEXITY: High. Job ID: [id number]
[2019-09-23] MEDS: Morphine 2 MG/ML SYRINGE SLOW IVP SCH (21:00)
[2019-09-23] MEDS ORDERED: Ferrous Sulfate 325 MG TAB PO SCH (21:00)
[2019-09-23] MEDS: Atorvastatin Calcium 40 MG TAB PO SCH (21:12)
[2019-09-23] MEDS: Gabapentin 300 MG CAP PO SCH (21:12)
[2019-09-23 21:18] LABS: Critical Call Chem Troponin I RESULT DECREASING; Troponin I 11.149 ng/mL (< 0.028)
[2019-09-23] MEDS: HumaLOG 300 UNITS/3 ML VIAL SC PRN (21:21)
[2019-09-23] MEDS: Zolpidem Tartrate 5 MG TAB PO PRN (23:10)
[2019-09-24 03:36] LABS: #Eosinphils 0.3 thou/uL (0.0-0.7); #Lymphocytes 1.5 thou/uL (1.20-3.40); #Monocytes 0.7 thou/uL (0.11-0.59); #Neutrophils 2.1 thou/uL (1.40-6.50); %Basophils 0.2 % (0.0-1.0); %Eosinophils 7.5 % (0.0-10.0); %Lymphocytes 31.8 % (21.0-51.0); %Monocytes 14.5 % (0.0-10.0); %Neutrophils 46.1 % (42.0-75.0); Hemoglobin 6.6 g/dL (14.0-18.0); Mean Corpuscular HGB CONC 33.6 g/dL (32.0-36.0); Mean Corpuscular Hemoglobin 33.4 pg (27.0-31.0); Mean Corpuscular Volume 99.6 fL (78.0-98.0); Mean Platelet Volume 8.8 fL (7.4-10.4); Platelet Count 169 thou/uL (130-400); RBC Distribution Width 15.6 % (11.5-14.5); Red Blood Cell (RBC) Count 1.98 mill/uL (4.70-6.10); White Blood Cell (WBC) Count 4.6 thou/uL (4.8-10.8)
[2019-09-24 03:53] LABS: Anion Gap 11 mmol/L (10-20); BUN (Urea Nitrogen) 21 mg/dL (8.4-25.7); Calc. Creatinine Clearance 66 mL/min (70-130); Calcium 8.1 mg/dL (7.8-10.44); Carbon Dioxide 24 mmol/L (23-31); Chloride 105 mmol/L (98-107); Estimated GFR-MDRD 61; Glucose 298 mg/dL (83-110); Potassium 4.2 mmol/L (3.5-5.1); Sodium 136 mmol/L (136-145)
[2019-09-24] MEDS: Levothyroxine Sodium 100 MCG TAB PO SCH (05:34)
[2019-09-24] MEDS: HumaLOG 300 UNITS/3 ML VIAL SC PRN ×6 (05:36→23:20)
[2019-09-24] MEDS: Aspirin 81 mg Enteric Coated Tablet PO SCH (08:35)
[2019-09-24] MEDS: Ferrous Sulfate 325 MG TAB PO SCH ×2 (08:35→17:19)
[2019-09-24] MEDS: Clopidogrel Bisulfate 75 MG TAB PO SCH (08:35)
[2019-09-24] MEDS: Gabapentin 300 MG CAP PO SCH ×2 (08:35→21:02)
[2019-09-24] MEDS: Morphine 2 MG/ML SYRINGE SLOW IVP SCH (08:42)
[2019-09-24] MEDS ORDERED: Nitroglycerin 0.4 MG TAB (25 Tab Bottle) ONE (09:57)
--- NOTE | 2019-09-24 14:55 | PDOC.HOSPP ---
- Subjective Encounter Date: 09/24/19 Encounter Time: 09:00 Subjective: Pt seen for followup re: NSTEMI. Had chest pain earlier today. Also received morphine for foot pain. - Objective Vital Signs & Weight: Vital Signs (12 hours) Temp Pulse Ox 09/24/19 12:00 98.0 F 09/24/19 08:00 100 09/24/19 04:00 97.8 F Weight Admit Weight 186 lb Weight 186 lb 1.122 oz Most Recent Monitor Data Heart Rate from ECG 104 NIBP 153/72 NIBP BP-Mean 99 Respiration from ECG 28 SpO2 100 I&O: 09/23/19 09/24/19 09/25/19 06:59 06:59 06:59 Intake Total 3090.5 750 Output Total 2800 1400 Balance 290.5 -650 Result Diagrams: 09/24/19 03:06 09/24/19 03:06 Additional Labs: Accuchecks 09/23/19 21:19 POC Glucose 258 H Labs and MARs reviewed by me EKG Reviewed by me: Yes (Tele: NSR) Hospitalist ROS - Review of Systems Constitutional: denies: fever, chills, sweats, weakness, malaise Cardiovascular: reports: chest pain. denies: palpitations, orthopnea, paroxysmal noc. dyspnea, edema, light headedness Gastrointestinal: denies: nausea, vomiting, abdominal pain, diarrhea, constipation, melena, hematochezia Musculoskeletal: reports: shoulder pain, foot pain. denies: neck pain, arm pain , back pain, hand pain, leg pain Skin: denies: rash, lesions, anu, bruising - Medication Medications: Active Medications Generic Name Dose Route Start Last Admin Trade Name Andreq PRN Reason Stop Dose Admin Aspirin 81 mg 09/24/19 09:00 09/24/19 08:35 Ecotrin PO 81 mg DAILY MICHAELA Administration Atorvastatin Calcium 40 mg 09/23/19 21:00 09/23/19 21:12 Lipitor PO 40 mg HS MICHAELA Administration Clopidogrel Bisulfate 75 mg 09/24/19 09:00 09/24/19 08:35 Plavix PO 75 mg DAILY MICHAELA Administration Ferrous Sulfate 325 mg 09/24/19 08:00 09/24/19 08:35 Feosol PO 325 mg BID-[facility] MICHAELA Administration Gabapentin 600 mg 09/23/19 21:00 09/24/19 08:35 Neurontin PO 600 mg BID MICHAELA Administration Insulin Human Lispro 0 units 09/23/19 19:25 09/24/19 12:02 Humalog SC 6 unit .MILD SLIDING SCALE PRN Administration Mild Correctional Scale Levothyroxine Sodium 200 mcg 09/24/19 06:00 09/24/19 05:34 Synthroid PO 200 mcg 0600 MICHAELA Administration Zolpidem Tartrate 5 mg 09/23/19 19:18 09/23/19 23:10 Ambien PO 5 mg HSPRN PRN Administration Insomnia - Exam General Appearance: awake alert Eye: anicteric sclera ENT: normocephalic atraumatic, moist mucosa Neck: supple, symmetric, no thyromegaly, no lymphadenopathy Heart: RRR, no gallops, no rubs Respiratory: CTAB, no wheezes, no rales, no ronchi, normal chest expansion Gastrointestinal: soft, non-tender, non-distended, normal bowel sounds Musculoskeletal: normal strength Psychiatric: normal affect, normal behavior Hosp A/P (1) NSTEMI (non-ST elevated myocardial infarction) Code(s): I21.4 - NON-ST ELEVATION (NSTEMI) MYOCARDIAL INFARCTION Status: Acute (2) DM type 2 (diabetes mellitus, type 2) Status: Chronic Qualifiers: Diabetes mellitus mcc insulin use: with buttermaker helper use Diabetes mellitus complication status: without complication Qualified Code(s): E11.9 - Type 2 diabetes mellitus without complications; Z79.4 - longterm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 (3) GERD (gastroesophageal reflux disease) Code(s): K21.9 - GASTRO-ESOPHAGEAL REFLUX DISEASE WITHOUT ESOPHAGITIS Status: Chronic (4) HTN (hypertension) Code(s): I10 - ESSENTIAL (PRIMARY) HYPERTENSION Status: Chronic (5) PVD (peripheral vascular disease) Code(s): I73.9 - PERIPHERAL VASCULAR DISEASE, UNSPECIFIED Status: Chronic - Plan Pt continues to have on and off chest pain. Medical management of CAD/NSTEMI. BP improving (was low) Start Lantus insulin at 20 units QAM Transfuse one unit pRBC
[2019-09-24] MEDS ORDERED: Insulin Glargine 20 UNITS in Pre-Filled Syringe 1 EACH SC SCH (15:15)
[2019-09-24] MEDS: Atorvastatin Calcium 40 MG TAB PO SCH (21:02)
[2019-09-24] MEDS ORDERED: cloNIDine 0.1 MG TAB PO SCH (23:15)
[2019-09-24] MEDS: Zolpidem Tartrate 5 MG TAB PO PRN (23:17)
[2019-09-24] MEDS ORDERED: HumaLOG 300 UNITS/3 ML VIAL SC PRN (23:55)
[2019-09-24] MEDS ORDERED: Non-Formulary Item 1 EACH (Insulin Detemir [Levemir] 60 UNIT) SQ PRN (23:55)
[2019-09-24] MEDS ORDERED: traMADol HCl 50 MG TAB PO PRN (23:55)
[2019-09-25] MEDS: Levothyroxine Sodium 100 MCG TAB PO SCH (05:08)
[2019-09-25 07:25] LABS: Anion Gap 10 mmol/L (10-20); BUN (Urea Nitrogen) 15 mg/dL (8.4-25.7); Calc. Creatinine Clearance 82 mL/min (70-130); Calcium 8.6 mg/dL (7.8-10.44); Carbon Dioxide 26 mmol/L (23-31); Chloride 104 mmol/L (98-107); Estimated GFR-MDRD 78; Glucose 169 mg/dL (83-110); Potassium 3.9 mmol/L (3.5-5.1); Sodium 136 mmol/L (136-145)
[2019-09-25] MEDS ORDERED: Carvedilol 6.25 MG TAB PO SCH (08:00)
[2019-09-25 08:05] LABS: Band 4 % (5-11); Eosinophils 4 % (0-10); Hemoglobin 9.1 g/dL (14.0-18.0); Lymphocytes 32 % (21-51); MDiff Complete? YES; Mean Corpuscular Hemoglobin 33.3 pg (27.0-31.0); Mean Platelet Volume 8.8 fL (7.4-10.4); Monocytes 12 % (0-10); Neutrophil 48 % (42-75); Platelet Count 175 thou/uL (130-400); Platelet Morphology Comment Appears Adequate; RBC Morphology Normal; Red Blood Cell (RBC) Count 2.74 mill/uL (4.70-6.10); White Blood Cell (WBC) Count 4.9 thou/uL (4.8-10.8)
[2019-09-25] MEDS: Aspirin 81 mg Enteric Coated Tablet PO SCH (08:11)
[2019-09-25] MEDS: Famotidine 20 MG TAB PO SCH ×2 (08:11→20:56)
[2019-09-25] MEDS: Lisinopril 20 MG TAB PO SCH (08:12)
[2019-09-25] MEDS: Isosorbide Mononitrate (ER) 30 MG TAB PO SCH (08:12)
[2019-09-25] MEDS: Clopidogrel Bisulfate 75 MG TAB PO SCH (08:12)
[2019-09-25] MEDS: Gabapentin 300 MG CAP PO SCH ×2 (08:12→20:56)
[2019-09-25] MEDS: Ferrous Sulfate 325 MG TAB PO SCH ×2 (08:13→16:57)
[2019-09-25] MEDS ORDERED: Insulin Glargine 20 UNITS in Pre-Filled Syringe 1 EACH SC SCH (09:00)
[2019-09-25] MEDS ORDERED: Insulin Glargine 60 UNITS in Pre-Filled Syringe 1 EACH SC SCH (09:00)
--- NOTE | 2019-09-25 10:48 | PDOC.CPN ---
- Subjective Date: 09/25/19 Time: 11:02 Interval history: The pt seen and examined. No overnight events. No cardiac complaints. - Objective Allergies/Adverse Reactions: Allergies Allergy/AdvReac Type Severity Reaction Status Date / Time No Known Allergies Allergy Verified 09/23/19 19:38 Visit Medications: Current Medications Acetaminophen (Tylenol) 650 mg SD Q4H PRN PRN Reason: Headache/Fever/Mild Pain (1-3) Acetaminophen (Tylenol) 650 mg PO Q4H PRN PRN Reason: Headache/Fever/Mild Pain (1-3) Aspirin (Ecotrin) 81 mg PO DAILY [facility] Last Admin: 09/25/19 08:11 Dose: 81 mg Atorvastatin Calcium (Lipitor) 40 mg PO [facility] Last Admin: 09/24/19 21:02 Dose: 40 mg Carvedilol (Coreg) 6.25 mg PO QA-[facility] Last Admin: 09/25/19 08:12 Dose: 6.25 mg Clopidogrel Bisulfate (Plavix) 75 mg PO DAILY [facility] Last Admin: 09/25/19 08:12 Dose: 75 mg Dextrose/Water (Dextrose 50%) 25 gm SLOW IVP PRN PRN PRN Reason: Hypoglycemia Famotidine (Pepcid) 20 mg PO BID [facility] Last Admin: 09/25/19 08:11 Dose: 20 mg Ferrous Sulfate (Feosol) 325 mg PO BID-[facility] Last Admin: 09/25/19 08:13 Dose: 325 mg Gabapentin (Neurontin) 600 mg PO BID [facility] Last Admin: 09/25/19 08:12 Dose: 600 mg Glucagon (Glucagon) 1 mg IM PRN PRN PRN Reason: Hypoglycemia Dextrose/Water (D5w) 1,000 mls @ 0 mls/hr IV .Q0M PRN PRN Reason: Hypoglycemia Insulin Glargine 20 units/ (Miscellaneous Medication) 0.2 mls @ 0 mls/hr SC [facility] Last Admin: 09/25/19 08:13 Dose: 0.2 mls Insulin Human Lispro (Humalog) 0 units SC .MILD SLIDING SCALE PRN PRN Reason: Mild Correctional Scale Last Admin: 09/24/19 23:20 Dose: 3 unit Insulin Human Lispro (Humalog) 8 units SC BID- PRN PRN Reason: Hyperglycemia Isosorbide Mononitrate (Imdur Er) 30 mg PO DAILY [facility] Last Admin: 09/25/19 08:12 Dose: 30 mg Levothyroxine Sodium (Synthroid) 200 mcg PO 0600 [facility] Last Admin: 09/25/19 05:08 Dose: 200 mcg Lisinopril (Zestril) 20 mg PO DAILY [facility] Last Admin: 09/25/19 08:12 Dose: 20 mg Nitroglycerin/Dextrose (Nitroglycerin 50 Mg/250 Ml Bot) 0 ml IVPB INF [facility]; Protocol Ondansetron HCl (Zofran) 4 mg IVP Q6H PRN PRN Reason: Nausea/Vomiting Pantoprazole Sodium (Protonix) 40 mg PO DAILY [facility] Last Admin: 09/25/19 08:25 Dose: Not Given Sodium Chloride (Flush - Normal Saline) 10 ml IVF PRN PRN PRN Reason: Saline Flush Tramadol HCl (Ultram) 50 mg PO TID PRN PRN Reason: Moderate Pain (4-6) Trazodone HCl (Desyrel) 75 mg PO [facility] Zolpidem Tartrate (Ambien) 5 mg PO HSPRN PRN PRN Reason: Insomnia Last Admin: 09/24/19 23:17 Dose: 5 mg Vital Signs & Weight: Vital Signs Temp BP 09/25/19 08:12 166/80 H 09/25/19 04:00 98.7 F 09/25/19 00:00 99.0 F 09/24/19 23:16 172/90 H Admit Weight 186 lb Weight 186 lb 1.122 oz - Physical Exam General: alert & oriented x3 HEENT: mucus membranes moist Neck: supple neck Cardiac: regular rate and rhythm, S1/S2 Lungs: decreased breath sounds Neuro: cranial nerve 2-12 intact Extremities: no edema - Labs Result Diagrams: 09/25/19 06:43 09/25/19 06:43 Troponin/CKMB Troponin I 11.149 ng/mL (< 0.028) H* 09/23/19 20:36 - Telemetry Sinus rhythms and dysrhythmias: sinus rhythm - Assessment/Plan Assessment/Plan: 1. NSTEMI possible 2/2 severe Anemia and/or infection? - his cath report in 2018 at [facility] showed patent LAD stent 2. 3V CAD with hx of stent in LAD in 03/2018 and s/p cath in 11/2018 at [facility] with 20% stenosis in LAD, 60% in mid RCA, and no signif disease in Lt Cx; on Coreg, lisinopril, Statin; will stop Plavix due to positive occult test and acute Anemia 3. HTN urgency - stable with current med 4. PVD with s/p multiple toe amputation 5. Severe with hx of TAVR in 06/2018 - Echo in 08/2019 with normal function of TAVR 6. DM type 2 7. Hypothyroidism 8. Cirrhosis 2/2 ETOH abuse with hx of GI bleed - may need GI consult for positive occult test and severe Anemia? 9. COPD - stable with RA 11. current smoker - The pt finally would like to start smoking cessation MAR reviewed * Echo in 08/2019 with EF 60-65%, grade I dd, mod LAE, trace MR, mild TR, and normal function of TAVR * s/p cath in 11/2018 at & with patent LAD stent, 20% stenosis in LAD, 60% in mid RCA, and no signif disease in Lt Cx Pt. seen and eval. by me. I agree with the A/P by the INGREDIENT HANDLER. The hgb is better and chest pain resolved. I have reviewed his cath films from 2018 and at that time he had significant CAD. He was advised against CABG. In the interim he underwent stent to the LAD and TAVR. s/p NSTEMI. At this time if the hgb. remains stable and no further chest pain perhaps he will do okay. I would defer the cath unless unstable angina and Hgb. > 9.0
[2019-09-25] MEDS: HumaLOG 300 UNITS/3 ML VIAL SC PRN ×2 (11:19→17:38)
[2019-09-25] MEDS: Carvedilol 6.25 MG TAB PO SCH (16:57)
--- NOTE | 2019-09-25 17:23 | PDOC.HOSPP ---
- Subjective Encounter Date: 09/25/19 Encounter Time: 10:00 Subjective: Pt seen for followup re: NSTEMI. Feels slightly better. - Objective Vital Signs & Weight: Vital Signs (12 hours) Temp BP 09/25/19 16:57 135/70 09/25/19 10:00 98.7 F 09/25/19 08:12 166/80 H Weight Admit Weight 186 lb Weight 186 lb 1.122 oz Most Recent Monitor Data Heart Rate from ECG 91 NIBP 135/70 NIBP BP-Mean 91 Respiration from ECG 21 SpO2 98 I&O: 09/24/19 09/25/19 09/26/19 06:59 06:59 06:59 Intake Total 3090.5 2472 350 Output Total 2800 3700 650 Balance 290.5 -1228 -300 Result Diagrams: 09/25/19 06:43 09/25/19 06:43 Additional Labs: Accuchecks 09/24/19 09/24/19 09/24/19 23:23 21:05 17:21 POC Glucose 212 H 286 H 282 H 09/24/19 09/24/19 09/24/19 12:00 08:37 05:40 POC Glucose 414 H 234 H 280 H Labs and MARs reviewed by me Hospitalist ROS - Medication Medications: Active Medications Generic Name Dose Route Start Last Admin Trade Name Scott PRN Reason Stop Dose Admin Aspirin 81 mg 09/24/19 09:00 09/25/19 08:11 Ecotrin PO 81 mg DAILY MICHAELA Administration Atorvastatin Calcium 40 mg 09/23/19 21:00 09/24/19 21:02 Lipitor PO 40 mg HS MICHAELA Administration Carvedilol 6.25 mg 09/25/19 17:00 09/25/19 16:57 Coreg PO 6.25 mg BID-WM MICHAELA Administration Famotidine 20 mg 09/25/19 09:00 09/25/19 08:11 Pepcid PO 20 mg BID MICHAELA Administration Ferrous Sulfate 325 mg 09/24/19 08:00 09/25/19 16:57 Feosol PO 325 mg BID-WM MICHAELA Administration Gabapentin 600 mg 09/23/19 21:00 09/25/19 08:12 Neurontin PO 600 mg BID MICHAELA Administration Insulin Glargine 20 units/ 0.2 mls @ 0 mls/hr 09/25/19 09:00 09/25/19 08:13 Miscellaneous Medication SC 0.2 mls QAM MICHAELA Administration Isosorbide Mononitrate 30 mg 09/25/19 09:00 09/25/19 08:12 Imdur Er PO 30 mg DAILY MICHAELA Administration Levothyroxine Sodium 200 mcg 09/24/19 06:00 09/25/19 05:08 Synthroid PO 200 mcg 0600 MICHAELA Administration Lisinopril 20 mg 09/25/19 09:00 09/25/19 08:12 Zestril PO 20 mg DAILY MICHAELA Administration Pantoprazole Sodium 40 mg 09/25/19 09:00 09/25/19 08:25 Protonix PO Not Given DAILY MICHAELA Zolpidem Tartrate 5 mg 09/23/19 19:18 09/24/19 23:17 Ambien PO 5 mg HSPRN PRN Administration Insomnia Hosp A/P (1) NSTEMI (non-ST elevated myocardial infarction) Code(s): I21.4 - NON-ST ELEVATION (NSTEMI) MYOCARDIAL INFARCTION Status: Acute (2) Acute blood loss anemia Code(s): D62 - ACUTE POSTHEMORRHAGIC ANEMIA Status: Acute (3) Symptomatic anemia Code(s): D64.9 - ANEMIA, UNSPECIFIED Status: Acute (4) DM type 2 (diabetes mellitus, type 2) Status: Chronic Qualifiers: Diabetes mellitus salvage determiner insulin use: with salvage determiner use Diabetes mellitus complication status: without complication Qualified Code(s): E11.9 - Type 2 diabetes mellitus without complications; Z79.4 - [facility]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 (5) GERD (gastroesophageal reflux disease) Code(s): K21.9 - GASTRO-ESOPHAGEAL REFLUX DISEASE WITHOUT ESOPHAGITIS Status: Chronic (6) HTN (hypertension) Code(s): I10 - ESSENTIAL (PRIMARY) HYPERTENSION Status: Chronic (7) PVD (peripheral vascular disease) Code(s): I73.9 - PERIPHERAL VASCULAR DISEASE, UNSPECIFIED Status: Chronic - Plan Stool occult blood test positive, consult GI. Hold anticoagulants. Medical management of CAD/NSTEMI. BP improving (was low) Increase Lantus insulin to 25 units QAM
[2019-09-25] MEDS ORDERED: Insulin Glargine 5 UNITS in Pre-Filled Syringe 1 EACH SC SCH (20:00)
[2019-09-25] MEDS: Atorvastatin Calcium 40 MG TAB PO SCH (20:56)
[2019-09-25] MEDS: traZODone HCl 50 MG TAB PO SCH (23:04)
[2019-09-26 04:27] LABS: #Eosinphils 0.4 thou/uL (0.0-0.7); #Lymphocytes 1.7 thou/uL (1.20-3.40); #Monocytes 0.6 thou/uL (0.11-0.59); #Neutrophils 2.2 thou/uL (1.40-6.50); %Basophils 0.9 % (0.0-1.0); %Eosinophils 8.4 % (0.0-10.0); %Lymphocytes 35.1 % (21.0-51.0); %Monocytes 11.7 % (0.0-10.0); %Neutrophils 43.8 % (42.0-75.0); Hemoglobin 8.9 g/dL (14.0-18.0); Mean Corpuscular Hemoglobin 33.3 pg (27.0-31.0); Mean Corpuscular Volume 97.9 fL (78.0-98.0); Mean Platelet Volume 8.9 fL (7.4-10.4); Platelet Count 181 thou/uL (130-400); RBC Distribution Width 15.1 % (11.5-14.5); Red Blood Cell (RBC) Count 2.67 mill/uL (4.70-6.10)
[2019-09-26] MEDS: Levothyroxine Sodium 100 MCG TAB PO SCH (04:46)
[2019-09-26 04:50] LABS: Anion Gap 11 mmol/L (10-20); BUN (Urea Nitrogen) 20 mg/dL (8.4-25.7); Calc. Creatinine Clearance 77 mL/min (70-130); Calcium 8.4 mg/dL (7.8-10.44); Carbon Dioxide 23 mmol/L (23-31); Chloride 106 mmol/L (98-107); Estimated GFR-MDRD 72; Glucose 156 mg/dL (83-110); Potassium 3.9 mmol/L (3.5-5.1); Sodium 136 mmol/L (136-145)
--- NOTE | 2019-09-26 08:12 | CON ---
DATE OF CONSULTATION: 09/25/2019 REASON FOR CONSULTATION: Anemia, history of tarry stool, and the stool for occult blood came back positive. HISTORY OF PRESENT ILLNESS: Mr. John Cruz is a 74-year-old male, hospitalized with dyspnea and chest discomfort. The patient is known to have coronary artery disease from before. He also has had aortic valve replacement done at [facility] in [place] 18 months ago. The patient is known to have coronary artery disease from before. He has coronary artery disease pretty severe and felt to be nonoperable. The patient came with what appears to be chest discomfort and tightness and dyspnea and was found to have non-Q myocardial infarction. He was found to have anemia and upon questioning, he gave history of melena. Stool was sent for occult blood and came back positive. The patient appears very comfortable. He is very stable at the present time. Since admission, he has been seen by Cardiology. The patient denies any chest discomfort, any palpitation, or dyspnea at the present time. Denies abdominal pain, nausea, or vomiting. The patient is known to me from before. [facility], [facility]. An EGD done in 2017, which revealed no esophageal stricture, but showed esophagitis. He was hospitalized at [facility] in 2018 with coronary artery disease, severe back pain, and also GI bleeding. He had an EGD at that time revealing severe erosive esophagitis occupying the mid esophagus . He had episode of hematochezia and colonoscopy positive for bleeding from the sigmoid colon area. He underwent colonoscopy in 2018 and was found to have bleeding from the left colon, but the right colon and transverse colon showed no bleeding. It was felt that most likely it was from diverticulosis. There was some recurrence of bleeding since admission in 2018. The patient was hospitalized in 2019 at [facility] with upper GI bleeding. He had an EGD, which revealed a Liane-Goddard tear, hiatal hernia, and esophagitis. The patient has had chronic GI symptoms. He tells me for a long time. The patient is a chronic smoker and he continues to smoke. No relevant history. ALLERGIES: NO DRUG ALLERGIES. SOCIAL HISTORY: The patient is a smoker. alcohol intake. MEDICAL ILLNESSES: 1. Long-standing coronary artery disease. 2. Peripheral vascular disease. 3. Liver cirrhosis. 4. Hypertension. 5. Diabetes mellitus. 6. GI bleeding in the past from mild diverticulosis, he had also bleeding from the esophagus from Liane-Goddard tear in the past. MEDICATION LIST: Reviewed. REVIEW OF SYSTEMS: A 10-point system reviewed. JUNIOR DESIGNER: No seizure disorder. No TIA. No chronic headache. No syncope. CONSTITUTIONAL: No weight loss. No history of any fever or chills. HEENT: No headache. EYES: No diplopia. EARS: No hearing loss. THROAT: No sore throat or dysphagia. LUNGS: Dyspnea, which is resolved. No chronic coughing. No hemoptysis. CARDIOVASCULAR: Chest discomfort and dyspnea, resolved. No palpitation. No orthopnea or PND. GI: History of black tarry stool for the last several weeks. No abdominal pain. No nausea or vomiting. : No dysuria or hematuria. Other system review is nonrelevant. PHYSICAL EXAMINATION: GENERAL: He is very pleasant male, appears very comfortable. VITAL SIGNS: His pulse rate is 86, blood pressure is 135/70. HEENT: Conjunctivae are clear. NECK: Supple. No adenitis or thyromegaly noted. CARDIOVASCULAR: First and second heart sounds are normal. LUNGS: Clear to auscultation. ABDOMEN: Soft. No organomegaly. No tenderness. No masses. EXTREMITIES: Reveal no edema. LABORATORY DATA: On admission, WBC 4600, hemoglobin 6.6, hematocrit 19.7, platelet count 169,000, polymorphs 46, bands 4, lymphocytes 31, monocytes 14. Today, hemoglobin up to 9.1 after 2 units of blood, hematocrit 26.8. The stool appears black and guaiac is positive. Chemistry panel; sodium 136, potassium 3.9, chloride 104, bicarb is 26, BUN is 15, creatinine is 0.94, glucose 169. CLINICAL IMPRESSION: 1. A 74-year-old male with longstanding coronary artery disease with previous myocardial infarction. He presents with dyspnea and chest discomfort and was found to have a [id number] myocardial infarction. Stable at the present time. He was anemic on admission and has been transfused. He has had black tarry stool and guaiac came back positive. The patient has had previous GI bleeding in the past including bleeding from Liane-Goddard tear in 2019 and also erosive esophagitis in 2018. He also had bleeding from diverticula from sigmoid colon in 2018. 2. Coronary artery disease, status post myocardial infarction. 3. Anemia due to blood loss. 4. Transcatheter aortic valve replacement . 5. Continued smoking. RECOMMENDATIONS: 1. IV PPI. 2. Follow up hemoglobin and hematocrit. 3. Transfuse p.r.n. 4. Possible EGD if Cardiology clears the patient. He is at very high risk for any kind of invasive procedure. If Cardiology clears him for endoscopy, I will perform EGD tomorrow. Job ID: [id number]
[2019-09-26] MEDS ORDERED: Ketamine 50 MG/ML (10ML VIAL) ONE (09:28)
[2019-09-26] MEDS ORDERED: Promethazine HCl 25 MG/ML VIAL IM PRN (10:11)
[2019-09-26] MEDS ORDERED: Ondansetron HCl/PF 4 MG/2 ML Vial IVP PRN (10:11)
[2019-09-26] MEDS ORDERED: Promethazine HCl 25 MG/ML VIAL SLOW IVP PRN (10:11)
[2019-09-26] MEDS: Aspirin 81 mg Enteric Coated Tablet PO SCH (10:40)
[2019-09-26] MEDS: Ferrous Sulfate 325 MG TAB PO SCH ×2 (10:40→17:14)
[2019-09-26] MEDS: Gabapentin 300 MG CAP PO SCH ×2 (10:40→20:31)
[2019-09-26] MEDS: Famotidine 20 MG TAB PO SCH ×2 (10:40→20:31)
[2019-09-26] MEDS: Carvedilol 6.25 MG TAB PO SCH ×2 (10:41→17:14)
[2019-09-26] MEDS: Lisinopril 20 MG TAB PO SCH (10:41)
[2019-09-26] MEDS: Isosorbide Mononitrate (ER) 30 MG TAB PO SCH (10:41)
[2019-09-26] MEDS: Insulin Glargine 25 UNITS in Pre-Filled Syringe 1 EACH SC SCH (10:46)
[2019-09-26] MEDS ORDERED: PROPOFOL 200 MG/20 ML VIAL ONE (11:29)
[2019-09-26] MEDS ORDERED: Lidocaine 1% PF 5 ML VIAL ONE (11:29)
--- NOTE | 2019-09-26 12:06 | EKG ---
Test Reason : Blood Pressure : / mmHG Vent. Rate : 091 BPM Atrial Rate : 091 BPM P-R Int : 150 ms QRS Dur : 092 ms QT Int : 404 ms P-R-T Axes : 070 019 063 degrees QTc Int : 496 ms Sinus rhythm with Premature atrial complexes Nonspecific ST and T wave abnormality Prolonged QT Abnormal ECG Confirmed by ROSALINA CARROLL DO ([id number]), editorial assistant JEET RIGGS ([id number]) on 09/26/2019 12:06:24 PM Referred By: Confirmed By:ROSALINA CARROLL DO
--- NOTE | 2019-09-26 12:19 | PDOC.HOSPP ---
- Subjective Encounter Date: 09/26/19 Encounter Time: 10:35 Subjective: no sob, has chronic cough due to copd no chest pain or palp just finished EGD - Objective Vital Signs & Weight: Vital Signs (12 hours) Temp Pulse Resp BP BP BP Pulse Ox 09/26/19 11:14 98.3 F 76 18 164/76 H 99 09/26/19 10:41 135/70 09/26/19 08:00 97 09/26/19 07:14 98.4 F 62 16 112/53 L 97 09/26/19 03:48 97.7 F 86 18 92/64 96 09/26/19 01:42 98 Weight Admit Weight 186 lb Weight 170 lb 6.4 oz Most Recent Monitor Data Heart Rate from ECG 91 NIBP 135/70 NIBP BP-Mean 91 Respiration from ECG 21 SpO2 98 I&O: 09/25/19 09/26/19 09/27/19 06:59 06:59 06:59 Intake Total 2472 590 Output Total 3700 650 Balance -1228 -60 Result Diagrams: 09/26/19 03:34 09/26/19 03:34 Additional Labs: Accuchecks 09/26/19 09/26/19 09/25/19 10:42 05:45 20:08 POC Glucose 168 H 169 H 184 H 09/25/19 09/25/19 09/25/19 16:15 11:23 06:27 POC Glucose 254 H 377 H 177 H Hospitalist ROS - Medication Medications: Active Medications Generic Name Dose Route Start Last Admin Trade Name Freq PRN Reason Stop Dose Admin Aspirin 81 mg 09/24/19 09:00 09/26/19 10:40 Ecotrin PO 81 mg DAILY MICHAELA Administration Atorvastatin Calcium 40 mg 09/23/19 21:00 09/25/19 20:56 Lipitor PO 40 mg HS MICAHELA Administration Carvedilol 6.25 mg 09/25/19 17:00 09/26/19 10:41 Coreg PO 6.25 mg BID-WM MICHAELA Administration Famotidine 20 mg 09/25/19 09:00 09/26/19 10:40 Pepcid PO 20 mg BID MICHAELA Administration Ferrous Sulfate 325 mg 09/24/19 08:00 09/26/19 10:40 Feosol PO 325 mg BID-WM MICHAELA Administration Gabapentin 600 mg 09/23/19 21:00 09/26/19 10:40 Neurontin PO 600 mg BID MICHAELA Administration Insulin Glargine 25 units/ 0.25 mls @ 0 mls/hr 09/26/19 09:00 09/26/19 10:46 Miscellaneous Medication SC 0.25 mls QAM MICHAELA Administration Insulin Human Lispro 0 units 09/25/19 17:15 09/25/19 17:38 Humalog SC 9 unit .AGGRESSIVE SLIDING PRN Administration AGGRESSIVE SLIDING SCALE Protocol Isosorbide Mononitrate 30 mg 09/25/19 09:00 09/26/19 10:41 Imdur Er PO 30 mg DAILY MICHAELA Administration Levothyroxine Sodium 200 mcg 09/24/19 06:00 09/26/19 04:46 Synthroid PO Not Given 0600 [facility] Lisinopril 20 mg 09/25/19 09:00 09/26/19 10:41 Zestril PO 20 mg DAILY MICHAELA Administration Pantoprazole Sodium 40 mg 09/25/19 09:00 09/26/19 10:41 Protonix PO 40 mg DAILY MICHAELA Administration Tramadol HCl 50 mg 09/24/19 23:55 09/25/19 17:59 Ultram PO 50 mg TID PRN Administration Moderate Pain (4-6) Trazodone HCl 75 mg 09/25/19 21:00 09/25/19 23:04 Desyrel PO 75 mg HS MICHAELA Administration Zolpidem Tartrate 5 mg 09/23/19 19:18 09/24/19 23:17 Ambien PO 5 mg HSPRN PRN Administration Insomnia - Exam General Appearance: awake alert Eye: PERRL, anicteric sclera ENT: no oropharyngeal lesions, moist mucosa Neck: supple, no JVD Heart: RRR, murmur present Respiratory: no wheezes, no rales, rhonchi Gastrointestinal: soft, non-tender, non-distended, normal bowel sounds Extremities: no cyanosis, no edema Neurological: cranial nerve grossly intact, no focal deficits Hosp A/P (1) Acute blood loss anemia Code(s): D62 - ACUTE POSTHEMORRHAGIC ANEMIA Status: Acute (2) CAD (coronary artery disease) Code(s): I25.10 - ATHSCL HEART DISEASE OF [place] CORONARY ARTERY W/O ANG PCTRS Status: Chronic Qualifiers: Coronary Disease-Associated Artery/Lesion type: [place] artery [place] vs. transplanted heart: [place] heart Associated angina: without angina Qualified Code(s): I25.10 - Atherosclerotic heart disease of [place] coronary artery without angina pectoris (3) h/o tavr Status: Chronic (4) Alcoholic cirrhosis of liver Code(s): K70.30 - ALCOHOLIC CIRRHOSIS OF LIVER WITHOUT ASCITES Status: Chronic Qualifiers: Ascites presence: without ascites Qualified Code(s): K70.30 - Alcoholic cirrhosis of liver without ascites (5) COPD (chronic obstructive pulmonary disease) Status: Chronic Qualifiers: COPD type: unspecified COPD Qualified Code(s): J44.9 - Chronic obstructive pulmonary disease, unspecified (6) DM type 2 (diabetes mellitus, type 2) Status: Chronic Qualifiers: Diabetes mellitus exterminator termite insulin use: with care home use Diabetes mellitus complication status: without complication Qualified Code(s): E11.9 - Type 2 diabetes mellitus without complications; Z79.4 - senior care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 (7) Dyslipidemia Code(s): E78.5 - HYPERLIPIDEMIA, UNSPECIFIED Status: Chronic (8) GERD (gastroesophageal reflux disease) Code(s): K21.9 - GASTRO-ESOPHAGEAL REFLUX DISEASE WITHOUT ESOPHAGITIS Status: Chronic Qualifiers: Esophagitis presence: esophagitis presence not specified Qualified Code(s) : K21.9 - Gastro-esophageal reflux disease without esophagitis (9) HTN (hypertension) Code(s): I10 - ESSENTIAL (PRIMARY) HYPERTENSION Status: Chronic Qualifiers: Hypertension type: essential hypertension Qualified Code(s): I10 - Essential (primary) hypertension (10) Hypothyroidism Code(s): E03.9 - HYPOTHYROIDISM, UNSPECIFIED Status: Chronic Qualifiers: Hypothyroidism type: unspecified Qualified Code(s): E03.9 - Hypothyroidism , unspecified (11) PVD (peripheral vascular disease) Code(s): I73.9 - PERIPHERAL VASCULAR DISEASE, UNSPECIFIED Status: Chronic (12) GI bleed Code(s): K92.2 - GASTROINTESTINAL HEMORRHAGE, UNSPECIFIED Status: Acute Qualifiers: GI bleed type/associated pathology: angiodysplasia of stomach and duodenum Qualified Code(s): K31.811 - Angiodysplasia of stomach and duodenum with bleeding - Plan Had EGD this am, showed AV malformation, s/p cauterization hemostable continue asp, lipitor, coreg, lisinopril, imdur, lantus, statin, levothyroixin and neurontin. Plavix is held for now. h/o LAD stent in 11/2018 at [facility] to ambulate as tolerated dc plan in am
--- NOTE | 2019-09-26 15:00 | OP ---
DATE OF PROCEDURE: 09/26/2019 PROCEDURE PERFORMED: Esophagogastroduodenoscopy with argon plasma coagulation of gastric arteriovenous malformation. PREOPERATIVE DIAGNOSIS: A 74-year-old male with melena, anemia due to blood loss. Undergoing esophagogastroduodenoscopy. POSTOPERATIVE DIAGNOSES: 1. Normal esophagus. 2. 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 3. Normal fundus and gastric antrum. 4. Normal duodenum. DESCRIPTION OF PROCEDURE: The patient was placed on his left lateral position and was given sedation by Anesthesia Department. A Pentax video gastroscope under direct vision passed down the oropharynx past the GE junction into the stomach. The esophageal mucosa appeared normal. No esophagitis seen. The gastric fundus showed no gastric varices. He had a very large gastric AVM over the gastric body. Not bleeding. The lesion was quite large. The gastric antrum, incisura, no lesion seen. The duodenal bulb, descending duodenum, no lesion seen. The APC probe was passed through pyloric channel and the area was cauterized with good hemostasis. The stomach decompressed and the scope removed. RECOMMENDATION: 1. Diet as tolerated. 2. Follow up H and H. 3. Transfuse p.r.n. Job ID: [id number]
[2019-09-26] MEDS: HumaLOG 300 UNITS/3 ML VIAL SC PRN (17:14)
[2019-09-26] MEDS: Atorvastatin Calcium 40 MG TAB PO SCH (20:32)
[2019-09-26] MEDS: traZODone HCl 50 MG TAB PO SCH (22:01)
[2019-09-27] MEDS: Zolpidem Tartrate 5 MG TAB PO PRN (01:55)
[2019-09-27] MEDS: Levothyroxine Sodium 100 MCG TAB PO SCH (05:11)
[2019-09-27] MEDS: HumaLOG 300 UNITS/3 ML VIAL SC PRN ×2 (06:04→11:39)
[2019-09-27 08:18] LABS: #Eosinphils 0.4 thou/uL (0.0-0.7); #Lymphocytes 1.5 thou/uL (1.20-3.40); #Monocytes 0.8 thou/uL (0.11-0.59); #Neutrophils 3.8 thou/uL (1.40-6.50); %Basophils 0.6 % (0.0-1.0); %Eosinophils 6.5 % (0.0-10.0); %Lymphocytes 22.6 % (21.0-51.0); %Monocytes 11.7 % (0.0-10.0); %Neutrophils 58.6 % (42.0-75.0); Mean Corpuscular HGB CONC 33.6 g/dL (32.0-36.0); Mean Corpuscular Hemoglobin 32.9 pg (27.0-31.0); Mean Platelet Volume 8.2 fL (7.4-10.4); Platelet Count 162 thou/uL (130-400); RBC Distribution Width 14.9 % (11.5-14.5); Red Blood Cell (RBC) Count 2.75 mill/uL (4.70-6.10); White Blood Cell (WBC) Count 6.4 thou/uL (4.8-10.8)
[2019-09-27 08:37] LABS: Anion Gap 10 mmol/L (10-20); BUN (Urea Nitrogen) 19 mg/dL (8.4-25.7); Calc. Creatinine Clearance 67 mL/min (70-130); Calcium 8.7 mg/dL (7.8-10.44); Carbon Dioxide 25 mmol/L (23-31); Chloride 111 mmol/L (98-107); Estimated GFR-MDRD 68; Glucose 60 mg/dL (83-110); Potassium 3.9 mmol/L (3.5-5.1); Sodium 142 mmol/L (136-145)
[2019-09-27] MEDS: Gabapentin 300 MG CAP PO SCH (08:57)
[2019-09-27] MEDS: Isosorbide Mononitrate (ER) 30 MG TAB PO SCH (08:57)
[2019-09-27] MEDS: Famotidine 20 MG TAB PO SCH (08:57)
[2019-09-27] MEDS: Carvedilol 6.25 MG TAB PO SCH (08:57)
[2019-09-27] MEDS: Insulin Glargine 25 UNITS in Pre-Filled Syringe 1 EACH SC SCH (08:58)
[2019-09-27] MEDS: Aspirin 81 mg Enteric Coated Tablet PO SCH (08:58)
[2019-09-27] MEDS: Lisinopril 20 MG TAB PO SCH (08:58)
[2019-09-27] MEDS: Ferrous Sulfate 325 MG TAB PO SCH (08:58)
[2019-09-27 11:50] VITALS: BP 137/63; TEMP 98.8
--- NOTE | 2019-09-27 16:12 | DIS ---
DATE OF ADMISSION: 09/23/2019 DATE OF DISCHARGE: 09/27/2019 DISCHARGE DISPOSITION: To home. PRIMARY DISCHARGE DIAGNOSES: 1. Acute blood loss anemia. 2. Arteriovenous malformation in stomach, status post cauterization. SECONDARY DISCHARGE DIAGNOSES: 1. History of coronary artery disease. 2. History of transcatheter aortic valve replacement. 3. History of cirrhosis secondary to alcohol. 4. Chronic obstructive pulmonary disease. 5. Diabetes mellitus, type 2. 6. Dyslipidemia. 7. Gastroesophageal reflux disease. 8. Hypertension. 9. Hypothyroidism. 10. Peripheral vascular disease. PROCEDURES DONE DURING HOSPITALIZATION: The patient has had upper endoscopy done by Dr. Peñaloza on 09/26/2019. He was found to have large gastric AV malformation over gastric body, which was not bleeding. This area was cauterized with good hemostasis. H and H were 6.6 and 19.7 on the day of admission. Discharge H and H of 9 and 26, BUN 19, creatinine 1.0. DISCHARGE MEDICATIONS: 1. Atorvastatin 40 mg p.o. at bedtime. 2. Aspirin 81 mg p.o. daily. 3. Coreg 25 mg twice daily. 4. Plavix 75 mg p.o. daily. 5. Gabapentin 600 mg p.o. twice daily. 6. NovoLog 8 units subcu twice daily. 7. Imdur extended release 30 mg p.o. daily. 8. Levothyroxine 200 mcg p.o. daily. 9. Omeprazole 20 mg p.o. daily. 10. Ultram 50 mg 3 times daily p.r.n. 11. Trazodone 100 mg p.o. at bedtime. 12. Ferrous sulfate 325 mg p.o. twice daily. 13. Levemir 40 units subcu twice daily. 14. Lisinopril 20 mg p.o. daily. ALLERGIES: NO KNOWN DRUG ALLERGIES. DISCHARGE PLAN: The patient to follow up with his primary care physician in the [facility] in 1 week. He is also advised to check blood pressure, pulse, and fingerstick glucose twice daily and record on sheet of paper to follow up with his primary care physician. BRIEF COURSE DURING HOSPITALIZATION: The patient initially got admitted on the 22 of September with complaints of chest pain. He was incidentally found to have had hemoglobin of 6 g. He has had upper endoscopy done, which showed large AV malformation. The patient's Plavix and aspirin were held during his brief stay here. His hemoglobin has come back up to 9 g. He has had a stent placed in his LAD in November of 2018. In view of this, the patient is advised to continue his aspirin and Plavix as before. The patient is wheelchair bound and mobilizes himself well. He is tolerating oral solid diet prior to discharge. Please note, I have seen and examined the patient on the day of discharge. Job ID: [id number]
--- NOTE | 2019-09-30 07:01 | PQF ---
MAC VALERIO VINAYA KUMAR MD [id number] CLINICAL DOCUMENTATION CLARIFICATION FORM: POST DISCHARGE Addendum to original discharge summary date: ____ Late entry note date: __ DATE:09/30/2019 ATTN: Miah Bess Please exercise your independent, professional judgment in responding to the clarification form. Clinical indicators are provided on the bottom of this form for your review Please check appropriate box(s): [ ] NSTEMI (IN type I) [ x ] NSTEMI Type II due to: [ x ] Anemia [ ] Gastric AV malformation [ ] Other, please specify: [ ] Other diagnosis [ ] Unable to determine CLINICAL INDICATORS - SIGNS / SYMPTOMS / LABS Laboratory 09/23 RBC 1.98. hgb 6.6, Hct 19.7, troponin I 13.881; 11.149 Gastric Occult blood test 09/24 Positive ECG 09/22 Impression:Nonspecific ST and T wave abnormality, Prolonged QT Vital signs 09/22 B{ 111/53, Pulse 98, Resp 22 Cardiology consult p1 09/22 Dr Tom Admitted with several occasions with non- Q-wave Myocardial infarction H&P p1 09/22 Dr Vázquez He reports SOB, lightheadedness and nausea H&P p2 09/22 Dr Vázquez Pt presenting with Non-ST elevation myocardial infarction Cardiology PN p3 09/24 NSTEMI possible 2/2 severe anemia and/or infection EGD 09/25 Impression: Large gastric AV malformation over gastric body RISKS: H&P p1 6/ 74 year-old Male H&P p1 6/ HTN H&P p1 / CAD H&P p1 / DM H&P p1 / hx of GI bleed H&P p1 09/22 hx of CVA H&P p1 09/22 hx of IN H&P p1 09/22 s/p TAVR TREATMENTS: Admitted with telemetry JUN 25 IV Morphine 2mg JUN 25 Ferrous Sulfate 325mg Oral JUN 25 IVF NS 1L JUN 25 Plavix 75mg oral JUN 25 Aspirin 81 mg oral Gastric Occult blood test-09/24 Blood bank 09/23 RBC ECG 09/22 Cardiology consult 09/22 Dr Tom, [place] GI consult 09/24 Dr Peñaloza, [place] EGD with Argon plasma coagulation 09/25 Dr Peñaloza (This form is maintained as a part of the permanent medical record) 2014 [employer] All Rights Reserved [email or web address]
== END 2019-09-27 14:30 | disposition home or self-care (01) | DRG 811 ==
LOC: ERS 16:07 → CCU 19:01 → 2NO 09-25 17:49
PROVIDERS: ADMIT Internal Medicine; ATTEND Internal Medicine
PROC: 30233N1 Transfusion of Nonautologous Red Blood Cells into Peripheral Vein, Percutaneous Approach (ICD-10-PCS; 2019-09-24)
PROC: 0W3P8ZZ Control Bleeding in Gastrointestinal Tract, Via Natural or Artificial Opening Endoscopic (ICD-10-PCS; principal; 2019-09-26)
DX: D62 Acute posthemorrhagic anemia (principal); K31.811 Angiodysplasia of stomach and duodenum with bleeding; I21.A1 Myocardial infarction type 2; I25.10 Atherosclerotic heart disease of native coronary artery without angina pectoris; E11.51 Type 2 diabetes mellitus with diabetic peripheral angiopathy without gangrene; J44.9 Chronic obstructive pulmonary disease, unspecified; I50.9 Heart failure, unspecified; E78.5 Hyperlipidemia, unspecified; E03.9 Hypothyroidism, unspecified; I11.0 Hypertensive heart disease with heart failure; F17.210 Nicotine dependence, cigarettes, uncomplicated; F41.9 Anxiety disorder, unspecified; K21.9 Gastro-esophageal reflux disease without esophagitis; I16.0 Hypertensive urgency; K70.30 Alcoholic cirrhosis of liver without ascites; F10.10 Alcohol abuse, uncomplicated; Z95.5 Presence of coronary angioplasty implant and graft; Z90.49 Acquired absence of other specified parts of digestive tract; Z95.2 Presence of prosthetic heart valve; Z79.899 Other long term (current) drug therapy; Z79.82 Long term (current) use of aspirin; I25.2 Old myocardial infarction; Z86.73 Personal history of transient ischemic attack (TIA), and cerebral infarction without residual deficits; Z89.431 Acquired absence of right foot; Z89.422 Acquired absence of other left toe(s); Z79.890 Hormone replacement therapy; Z79.02 Long term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 of antithrombotics/antiplatelets; Z79.4 Long term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
CPT/HCPCS: 36415; 36416; 36430; 80048; 82274; 85025; 86850; 86900; 86901; 93005; 93010; 96365; 96366; 96375; J1815; J2001; J2270; J2704; J3010; P9016

== ENCOUNTER 2020-01-10 15:25 | Observation (INO) | payer MEDICARE, OTHER ==
[2020-01-10 16:05] LABS: #Basophils 0.1 thou/uL (0.0-0.2); #Eosinphils 0.2 thou/uL (0.0-0.7); #Lymphocytes 2.6 thou/uL (1.20-3.40); #Monocytes 0.9 thou/uL (0.11-0.59); #Neutrophils 4.2 thou/uL (1.40-6.50); %Basophils 0.9 % (0.0-1.0); %Eosinophils 1.9 % (0.0-10.0); %Monocytes 11.7 % (0.0-10.0); %Neutrophils 52.5 % (42.0-75.0); Hemoglobin 13.6 g/dL (14.0-18.0); Mean Corpuscular HGB CONC 32.7 g/dL (32.0-36.0); Mean Corpuscular Hemoglobin 31.8 pg (27.0-31.0); Mean Corpuscular Volume 97.2 fL (78.0-98.0); Mean Platelet Volume 9.9 fL (7.4-10.4); Platelet Count 105 thou/uL (130-400); RBC Distribution Width 16.3 % (11.5-14.5); Red Blood Cell (RBC) Count 4.29 mill/uL (4.70-6.10); White Blood Cell (WBC) Count 7.9 thou/uL (4.8-10.8)
[2020-01-10 16:10] LABS: INR-International Normal Ratio 1.1; PTT 27.4 sec (22.9-36.1); Prothrombin Time 14.3 sec (12.0-14.7)
[2020-01-10 16:25] LABS: ALT (SGPT) 22 U/L (8-55); AST (SGOT) 13 U/L (5-34); Albumin 3.3 g/dL (3.4-4.8); Alkaline Phosphatase 66 U/L (40-110); Anion Gap 12 mmol/L (10-20); BUN (Urea Nitrogen) 30 mg/dL (8.4-25.7); Bilirubin, Total 0.3 mg/dL (0.2-1.2); CK (CPK) 42 U/L (30-200); Calc. Creatinine Clearance 0 mL/min (70-130); Calcium 7.8 mg/dL (7.8-10.44); Carbon Dioxide 24 mmol/L (23-31); Chloride 106 mmol/L (98-107); Estimated GFR-MDRD 50; Globulin 2.8 g/dL (2.4-3.5); Glucose 245 mg/dL (83-110); Potassium 3.7 mmol/L (3.5-5.1); Protein, Total 6.1 g/dL (5.8-8.1); Sodium 138 mmol/L (136-145)
--- NOTE | 2020-01-10 16:45 | RAD ---
XR Chest 1 View Portable History: GI bleed Comparison: Radiograph January 01, 2020 Findings: Small nodule left upper lobe measures approximately centimeter. No confluent airspace conso lidation, pneumothorax or effusion. Prior transcatheter aortic valve replacement. Heart size mildly enlarged. No acute osseous abnormality. Impression: Similar appearance of the left upper lobe pulmonary nodule which was described on the September 16, 2019 exam.
[2020-01-10 16:47] LABS: CKMB 2.2 ng/mL (0-6.6)
[2020-01-10 20:52] LABS: Troponin I 0.063 ng/mL (< 0.028)
[2020-01-10] MEDS ORDERED: Acetaminophen 325 MG TAB PO PRN (21:56)
[2020-01-10 22:15] LABS: Magnesium 1.8 mg/dL (1.6-2.6)
[2020-01-10] MEDS ORDERED: Dextrose 5% in Water 1,000 ML IV PRN (23:42)
[2020-01-10] MEDS ORDERED: Dextrose 50% Abboject 50 ML SYRINGE SLOW IVP PRN (23:42)
[2020-01-10] MEDS ORDERED: HumaLOG 300 UNITS/3 ML VIAL SC PRN ×2 (23:42)
[2020-01-10] MEDS ORDERED: Melatonin 3 MG TAB PO PRN (23:45)
[2020-01-11 00:36] LABS: CKMB 2.3 ng/mL (0-6.6)
--- NOTE | 2020-01-11 02:58 | PDOC.HHP ---
Hospitalist HPI - History of Present Illness Near syncope and low BP History of Present Illness: Patient presents to the ED after having a near syncopal episode. He states he was standing and suddenly felt lightheaded. He sat down and continued to feel like he was going to pass out. He called for medical attention and EMS found him to be hypotensive at 70/30. He received 1500 mLs of NS and repeat BP had improved to 98/49. Denies any associated chest pain or shortness of breath. No diaphoresis. He has a chronic cough but denies any hemoptysis. He has been exceptionally thirsty, attributed to uncontrolled glucose. He states he has been drinking a lot of fluids but this consists of caffeinated iced tea. Patient denies any fever or chills. At the moment he feels much better. His only complaint is abdominal discomfort which he states is mild. He feels like he has to have a bowel movement. He reports having black colored stools attributed to iron supplements. Denies any bright red blood per rectum. No abdominal pain nausea or vomiting. No fever, chills or sweats. Patient admitted to the hospital 09/2019 for chest pain due to NSTEMI. He was incidentally found to be anemic secondary to a GI bleed. He had endoscopy done by Dr. 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 Hgb at time of discharge was 9 and hct was 26. ROS: All other review of systems, apartm from those mentioned above in HPI, are negative. ED COURSE: 12 lead EKG shows normal sinus rhythm, Rate (beats per minute): 62, with no ectopics, Conduction normal, ST segments normal, White normal, QTc 483. CXR: Similar appearance of the left upper lobe pulmonary nodule which was de scribed on the September 16, 2019 exam. Brown FOBT negative stools Labs showed a hgb of 13 which is the best it has been in the last year. Patient pleasantly surprised. He was noted to have an indeterminate troponin of 0.052 and therefore admitted for cardiac monitoring and ACS rule out. PAST MEDICAL HISTORY: 1. 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 3. COPD. 4. DM, type 2. 5. Dyslipidemia. 6. GERD. 7. HTN. 8. Hypothyroidism. 10. PVD. 11. Tobacco use. 12. History of epidural abscess. 13. GI bleed. 14. Anxiety. 15. CVA. 16. NSTEMI. PAST SURGICAL HISTORY: 1. Aortic valve replacement. 2. Cardiact stent to LAD 11/2018. 3. Cholecystectomy. 4. Amputation of first and second toes of the right foot. Amputation of toes in left foot. SOCIAL HISTORY: Reports long standing smoking history x 20 years. States he has weaned down significantly with the help of lozenges. He is now down to 1/2 pack per day. Denies any current alcohol use. He did report excessive alcohol use in the distant past. No drug use. FAMILY HISTORY: Significant for diabetes mellitus Type 2 ALLERGIES: No known drug allergies. CURRENT MEDICATIONS: Aspirin 81 mg PO once a day. Carvedilol 25 mg Oral 2 times a day. Clopidogrel 75 mg Oral once a day. Gabapentin 600 mg Oral 2 times a day. Lisinopril 40 mg Oral once a day. Atorvastatin 40 mg Oral once a day. Ferrous sulfate 325 mg Oral 2 times a day. Omeprazole 20 mg Oral once a day. TraMADol 50 mg Oral every 6 hours PRN. TraZODone 100 mg Oral As Needed at bedtime. HumaLOG U-100 Insulin 10 units Subcutaneous 3 times a day. NovoLIN L 75 units Subcutaneous once a day (in the morning). Minocycline 100 mg Oral 2 times a day. Hospitalist ROS - Medication Medications: Active Medications Generic Name Dose Route Start Last Admin Trade Name Freq PRN Reason Stop Dose Admin Acetaminophen 650 mg 01/10/20 21:56 01/11/20 00:25 Acetaminophen 325 Mg Tab PO 650 mg Q4H PRN Administration Headache/Fever or Pain Insulin Human Lispro 0 units 01/10/20 23:42 01/11/20 00:25 Humalog 300 Units/3 Ml Vial SC 3 unit .BEDTIME SLIDING SC PRN Administration Bedtime Correctional Scale Melatonin 3 mg 01/10/20 23:45 01/11/20 00:25 Melatonin 3 Mg Tab PO 3 mg HS PRN Administration Insomnia - Exam General Appearance: NAD, awake alert General - other findings: BP 123/47, Pulse: 64, Resp: 15, Pain: 0, O2 sat: 98 on (RA), Temp 98.8 ENT: normocephalic atraumatic, no oropharyngeal lesions, dry oral mucosa Neck: supple, symmetric, no lymphadenopathy Heart: RRR, normal peripheral pulses Respiratory: CTAB, no wheezes, no rales, no ronchi, normal chest expansion, no tachypnea Gastrointestinal: soft, non-tender, non-distended, normal bowel sounds, no guarding, no rigidity Extremities: no edema Skin: no lesions, no rashes, tenting Skin - other findings: dry skin Neurological: cranial nerve grossly intact, normal sensation to touch, no focal deficits Musculoskeletal: normal tone, normal strength, no muscle wasting Psychiatric: normal affect, normal behavior, A&O x 3 Hospitalist Results - Labs Result Diagrams: 01/10/20 15:53 01/10/20 15:53 Lab results: WBC 7.9 thou/uL (4.8-10.8) 01/10/20 15:53 Hgb 13.6 g/dL (14.0-18.0) L 01/10/20 15:53 Hct 41.7 % (42.0-52.0) L 01/10/20 15:53 MCV 97.2 fL (78.0-98.0) 01/10/20 15:53 Plt Count 105 thou/uL (130-400) L 01/10/20 15:53 Neutrophils % 52.5 % (42.0-75.0) 01/10/20 15:53 Sodium 138 mmol/L (136-145) 01/10/20 15:53 Potassium 3.7 mmol/L (3.5-5.1) 01/10/20 15:53 Chloride 106 mmol/L (98-107) 01/10/20 15:53 Carbon Dioxide 24 mmol/L (23-31) 01/10/20 15:53 BUN 30 mg/dL (8.4-25.7) H 01/10/20 15:53 Creatinine 1.39 mg/dL (0.7-1.3) H 01/10/20 15:53 Glucose 245 mg/dL (83-110) H 01/10/20 15:53 Calcium 7.8 mg/dL (7.8-10.44) 01/10/20 15:53 Total Bilirubin 0.3 mg/dL (0.2-1.2) 01/10/20 15:53 AST 13 U/L (5-34) 01/10/20 15:53 ALT 22 U/L (8-55) 01/10/20 15:53 Alkaline Phosphatase 66 U/L (40-110) 01/10/20 15:53 Creatine Kinase 42 U/L (30-200) 01/10/20 15:53 CK-MB (CK-2) 2.3 ng/mL (0-6.6) 01/10/20 23:38 Troponin I 0.060 ng/mL (< 0.028) H 01/10/20 23:38 Serum Total Protein 6.1 g/dL (5.8-8.1) 01/10/20 15:53 Albumin 3.3 g/dL (3.4-4.8) L 01/10/20 15:53 Lipase 42 U/L (8-78) 01/10/20 20:14 - Radiology Interpretation Chest x-ray Status: report reviewed by or Hospitalist H&P A/P - Problem (1) Near syncope Status: Acute Assessment and Plan: Likely secondary to dehydration vs. vasovagal. Patient with excess caffeine intake. Continue cardiac monitoring. Orthostatic BPs. Reconcile medications as appropriate. Gentle hydration. Monitor H/H. UA/UCx to rule out underlying UTI. (2) Dehydration Code(s): E86.0 - DEHYDRATION Status: Acute Assessment and Plan: As above, continue gentle hydration. Monitor renal function. (3) Hypotension Status: Acute Assessment and Plan: Improved. Continue to monitor BP. Plan as above. (4) Afib Code(s): I48.91 - UNSPECIFIED ATRIAL FIBRILLATION Status: Chronic Assessment and Plan: Continue plavix which he takes at home. cardiac monitoring. (5) History of GI bleed Code(s): Z87.19 - PERSONAL HISTORY OF OTHER DISEASES OF THE DIGESTIVE SYSTEM Status: Acute Assessment and Plan: FOBT negative. Hgb is much improved compared to previous months. Continue to monitor h/h (6) Alcoholic cirrhosis of liver Code(s): K70.30 - ALCOHOLIC CIRRHOSIS OF LIVER WITHOUT ASCITES Status: Chronic Qualifiers: Ascites presence: without ascites Qualified Code(s): K70.30 - Alcoholic cirrhosis of liver without ascites Assessment and Plan: Repeat LFTs with morning labs. (7) Anxiety and depression Code(s): F41.9 - ANXIETY DISORDER, UNSPECIFIED; F32.9 - MAJOR DEPRESSIVE DISORDER, SINGLE EPISODE, UNSPECIFIED Status: Chronic Assessment and Plan: Resume home medications once verified, as appropriate. (8) CAD (coronary artery disease) Code(s): I25.10 - ATHSCL HEART DISEASE OF [place] CORONARY ARTERY W/O ANG PCTRS Status: Chronic Qualifiers: Coronary Disease-Associated Artery/Lesion type: [place] artery [place] vs. transplanted heart: [place] heart Associated angina: without angina Qualified Code(s): I25.10 - Atherosclerotic heart disease of [place] coronary artery without angina pectoris Assessment and Plan: Resume home medications once verified. No chest pain at present. continue to trend troponins. (9) Chronic combined systolic and diastolic CHF (congestive heart failure) Code(s): I50.42 - CHRONIC COMBINED SYSTOLIC AND DIASTOLIC HRT FAIL Status: Chronic Assessment and Plan: Check BNP with morning labs. Gentle hydration given known hx of CHF. (10) DM type 2 (diabetes mellitus, type 2) Status: Chronic Qualifiers: Diabetes mellitus retirement insulin use: with retirement use Diabetes mellitus complication status: without complication Qualified Code(s): E11.9 - Type 2 diabetes mellitus without complications; Z79.4 - FDC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 Assessment and Plan: Monitor blood glucose. Initiate insulin sliding scale. (11) HTN (hypertension) Code(s): I10 - ESSENTIAL (PRIMARY) HYPERTENSION Status: Chronic Qualifiers: Hypertension type: essential hypertension Qualified Code(s): I10 - Essential (primary) hypertension Assessment and Plan: Monitor BP. Reconcile home medications as appropriate once verified. (12) GERD (gastroesophageal reflux disease) Code(s): K21.9 - GASTRO-ESOPHAGEAL REFLUX DISEASE WITHOUT ESOPHAGITIS Status: Chronic Qualifiers: Esophagitis presence: esophagitis presence not specified Qualified Code(s): K21.9 - Gastro-esophageal reflux disease without esophagitis Assessment and Plan: Resume pantoprazole. (13) Tobacco abuse Code(s): Z72.0 - TOBACCO USE Status: Chronic Assessment and Plan: Smoking cessation.
[2020-01-11 05:03] LABS: #Eosinphils 0.2 thou/uL (0.0-0.7); #Lymphocytes 2.3 thou/uL (1.20-3.40); #Monocytes 0.8 thou/uL (0.11-0.59); #Neutrophils 4.5 thou/uL (1.40-6.50); %Basophils 0.5 % (0.0-1.0); %Eosinophils 2.9 % (0.0-10.0); %Lymphocytes 29.4 % (21.0-51.0); %Monocytes 9.6 % (0.0-10.0); %Neutrophils 57.6 % (42.0-75.0); Hemoglobin 12.8 g/dL (14.0-18.0); Mean Corpuscular HGB CONC 33.8 g/dL (32.0-36.0); Mean Corpuscular Hemoglobin 32.3 pg (27.0-31.0); Mean Corpuscular Volume 95.6 fL (78.0-98.0); Mean Platelet Volume 10.1 fL (7.4-10.4); Platelet Count 96 thou/uL (130-400); RBC Distribution Width 16.4 % (11.5-14.5); Red Blood Cell (RBC) Count 3.96 mill/uL (4.70-6.10); White Blood Cell (WBC) Count 7.8 thou/uL (4.8-10.8)
[2020-01-11 05:04] LABS: ALT (SGPT) 21 U/L (8-55); AST (SGOT) 14 U/L (5-34); Alkaline Phosphatase 59 U/L (40-110); Anion Gap 11 mmol/L (10-20); BUN (Urea Nitrogen) 23 mg/dL (8.4-25.7); Bilirubin, Total 0.2 mg/dL (0.2-1.2); Calc. Creatinine Clearance 80 mL/min (70-130); Calcium 7.8 mg/dL (7.8-10.44); Carbon Dioxide 21 mmol/L (23-31); Chloride 109 mmol/L (98-107); Estimated GFR-MDRD 73; Globulin 2.5 g/dL (2.4-3.5); Glucose 272 mg/dL (83-110); Potassium 3.8 mmol/L (3.5-5.1); Protein, Total 5.5 g/dL (5.8-8.1); Sodium 137 mmol/L (136-145)
[2020-01-11 05:26] LABS: CKMB 2.2 ng/mL (0-6.6)
[2020-01-11 05:37] LABS: Bacteria/HPF None Seen HPF (None Seen); Bilirubin Negative (Negative); Blood, Urine Negative (Negative); Clarity Clear (Clear); Glucose, Urine (Dipstick) Greater than 1000 mg/dL (Negative); Ketone, Urine Negative (Negative); Leukocyte Negative Leu/uL (Negative); Nitrite Negative (Negative); Protein, Urine (Dipstick) Negative (Neg-Trace); RBC/HPF 0-3 HPF (0-3); Specific Gravity, Urine 1.015 (1.002-1.036); Squamous Epithelial None Seen HPF (0-3); Urobilinogen Normal mg/dL (Less than 2); WBC/HPF 0-3 HPF (0-3); pH, Urine 6.5 (5.0-9.0)
[2020-01-11 05:38] LABS: Urine Culture Reflex No No
[2020-01-11] MEDS: HumaLOG 300 UNITS/3 ML VIAL SC PRN ×2 (06:35→12:10)
[2020-01-11] MEDS ORDERED: Ferrous Sulfate 325 MG TAB PO SCH (08:00)
[2020-01-11] MEDS ORDERED: Famotidine 20 MG TAB PO SCH (09:00)
[2020-01-11] MEDS ORDERED: Carvedilol 25 MG TAB PO SCH (09:00)
[2020-01-11] MEDS ORDERED: Aspirin 81 mg Enteric Coated Tablet PO SCH (09:00)
[2020-01-11] MEDS ORDERED: Gabapentin 300 MG CAP PO SCH (09:00)
[2020-01-11] MEDS ORDERED: Clopidogrel Bisulfate 75 MG TAB PO SCH (09:00)
[2020-01-11] MEDS ORDERED: Iopamidol-370 76% 500 ML 1 ML ONE (10:38)
[2020-01-11 11:05] VITALS: BMI 25.7
[2020-01-11 11:28] VITALS: TEMP 98.5
[2020-01-11] MEDS ORDERED: Sodium Chloride 0.9% 500 ML IV SCH (11:45)
[2020-01-11 12:32] VITALS: BP 150/65
[2020-01-11 13:28] LABS: SARS-CoV-2 MS2 Positive; SARS-CoV-2 N Gene Negative; SARS-CoV-2 S Gene Negative; SARS-CoV-2 by NAA Not Detected (NotDetected); SARS-CoV-2 orf1ab Negative
--- NOTE | 2020-01-11 13:46 | CT ---
CTA CHEST WITH IV CONTRAST AND 3D POSTPROCESSING CTA ABDOMEN WITH IV CONTRAST AND 3D POSTPROCESSING: Date: 01/11/2020 HISTORY: Hypertension and back pain, concern for aortic dissection. COMPARISON: CT pulmonary angiogram of 08/27/2019. FINDINGS: There are vascular calcifications. An aortic valve stent remains in place. The thoracoabdominal aorta is well opacified without intimal flap to suggest dissection. No aneurysmal dilatation of the thorac ic aorta is seen. There is a 3.0 cm aneurysm in the infrarenal abdominal aorta close to the bifurcati on, and a 2.0 cm right common iliac artery aneurysm. No pericardial effusions are identified. There is a 1.7 cm spiculated nodule in the left upper lobe m inimally larger compared to 09/16/2019. Scarring in the upper lobes are again seen. There is irregularity of the liver surface consistent with cirrhosis. The patient is post cholecystec dhiraj. No free air, free fluid, or lymphadenopathy is seen I the abdomen. There are degenerative butler es in the spine. There is compression of T12 vertebral body. IMPRESSION: 1. No evidence of aortic dissection. 2. 3.0 cm infrarenal abdominal aortic aneurysm. 3. 2.0 cm right common iliac artery aneurysm. 4. Suspicious 1.7 cm spiculated left upper lobe lung nodule. This should be evaluated with PET scan. 5. Cirrhosis of the liver. CODE T. CODE LN. POS: OFF
[2020-01-11] MEDS ORDERED: Atorvastatin Calcium 40 MG TAB PO SCH (21:00)
[2020-01-11] MEDS ORDERED: Non-Formulary Item 1 EACH (Trazodone Hcl [Trazodone Hcl] 100 MG Tablet) PO SCH (21:00)
--- NOTE | 2020-01-12 02:20 | DIS ---
DATE OF ADMISSION: 01/10/2020 DATE OF DISCHARGE: 01/11/2020 DISCHARGE DIAGNOSES: 1. Hypotension, unclear etiology. 2. Dizziness, near syncope. 3. Coronary artery disease. 4. Cirrhosis of the liver. 5. Left upper lobe pulmonary nodule. 6. Right lower lobe pulmonary nodule. 7. Gastrointestinal bleed. HOSPITAL COURSE: The patient is a very pleasant 74-year-old male, who initially presented to the hospital with complaints of lightheadedness and at this time, he called EMS and was found to be hypotensive. He was given IV fluids. He denied any fevers or chills. He denies any chest tightness. He just had some shoulder pain. He had a bleed on September 2019, had a large gastric AV malformation. His H and H in the hospital were normal . The patient continued to be hypotensive here while he was in the hospital. He initially underwent a chest x-ray, which did not show any acute abnormalities. He recently had an echocardiogram done on 09/18/2019, which indicated an EF of 60% to 65%. He does have a mild periaortic valve regurgitation, otherwise it was normal. His troponins were mildly elevated. At this time, I did check his blood pressures in both arms, which were okay. No significant difference. He then underwent a CT dissection protocol to rule out any dissection and at this time, it did find a few aneurysms. He has a 3.0 infrarenal abdominal aortic aneurysm and 2.0 right common iliac aneurysm and also suspicion of spiculated 1.7 cm left upper nodule. I actually printed out this copy and gave to the patient and asked him that he needs to follow [facility] with [facility] for this spiculated lung nodule and states that he understands and he will do so. I have also educated him to check his blood pressures 2 or 3 times a day. There were no recent changes in his blood pressure medications. He had no diarrhea. He has been eating and drinking well. The only thing is that he has been drinking a lot of caffeinated beverages and has been urinating a lot, not sure if this caused transient hypotension. He also notes that his sugars have been kind of running high even though he has been eating the same diet. The patient continues to smoke. I have advised him against smoking. HOME MEDICATIONS: His home medications will be resumed: 1. Aspirin 81 mg daily. Atorvastatin 40 mg daily. 2. Carvedilol 25 mg b.i.d. 3. Iron 325 twice daily. 4. Clopidogrel 75 mg daily. 5. Gabapentin 600 mg b.i.d. 6. Lisinopril 20 mg daily. 7. Omeprazole 40 mg daily. 8. Insulin 75 units daily. 9. Tramadol as needed. 10. Trazodone p.o. at bedtime. PHYSICAL EXAMINATION: VITAL SIGNS: Temperature 98.5, 73, 16, 99% on room air, 131/63. GENERAL: He is awake, alert, and oriented x3. Does not appear in distress. CV: S1, S2 present. No murmurs, rubs, gallops. FOLLOWUP: He again will be discharged home to follow up with his primary and I have told him that if his symptoms come back to come back to the hospital or call EMS. Job ID: [id number]
[2020-01-12] MEDS ORDERED: Non-Formulary Item 1 EACH (Insulin Aspart [Novolog] 100 UNIT/ML Vial) SQ SCH (07:30)
[2020-01-12] MEDS ORDERED: HumaLOG 300 UNITS/3 ML VIAL SC SCH (07:30)
== END 2020-01-11 15:47 | disposition home or self-care (01) ==
LOC: ERS 15:25 → 2SW 19:53
PROVIDERS: ADMIT Internal Medicine; ATTEND Internal Medicine
DX: I95.9 Hypotension, unspecified (principal); E86.0 Dehydration; I11.0 Hypertensive heart disease with heart failure; I50.42 Chronic combined systolic (congestive) and diastolic (congestive) heart failure; I25.10 Atherosclerotic heart disease of native coronary artery without angina pectoris; K92.2 Gastrointestinal hemorrhage, unspecified; R91.8 Other nonspecific abnormal finding of lung field; I71.4 Abdominal aortic aneurysm, without rupture; I72.3 Aneurysm of iliac artery; K70.30 Alcoholic cirrhosis of liver without ascites; J44.9 Chronic obstructive pulmonary disease, unspecified; E11.9 Type 2 diabetes mellitus without complications; E78.5 Hyperlipidemia, unspecified; E03.9 Hypothyroidism, unspecified; K21.9 Gastro-esophageal reflux disease without esophagitis; F41.9 Anxiety disorder, unspecified; F17.210 Nicotine dependence, cigarettes, uncomplicated; I48.91 Unspecified atrial fibrillation; Z86.73 Personal history of transient ischemic attack (TIA), and cerebral infarction without residual deficits; Z79.02 Long term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 of antithrombotics/antiplatelets; Z79.4 Long term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; Z79.82 Long term (current) use of aspirin; Z95.4 Presence of other heart-valve replacement; Z95.5 Presence of coronary angioplasty implant and graft; Z20.828 Contact with and (suspected) exposure to other viral communicable diseases
CPT/HCPCS: 71045; 71275; 72191; 74175; 80053; 81001; 82274; 82550; 82553 ×2; 82962 ×2; 83690; 83735; 84484 ×3; 85025; 85610; 85730; 86850; 86900; 86901; 90732; 93005; 97139; 99285; G0009; U0003; 36415; 36416; 84443; 87635; 90471; G0378; Q9967

== ENCOUNTER 2020-06-11 19:05 | Inpatient (IN) | payer MEDICARE ==
[~2020-06-11 19:05] MED LIST changes: +Heparin 1,000 UNITS/ML VIAL ONE; -ISOVUE-370 76%-LOCM 1 ML ONE
[2020-06-11] MEDS ORDERED: Norepinephrine 8 MG/0.9% NS 0 ML ONE (19:16)
[2020-06-11] MEDS ORDERED: Cefepime 2 GM VIAL ONE (19:54)
[2020-06-11 20:24] LABS: Acetaminophen Less than 6.0 mcg/mL (10.0-30.0); Alcohol Less than 10 mg/dL (Less than 10); Salicylate Less than 8.0 mg/dL (15.0-30.0)
[2020-06-11 20:25] LABS: ALT (SGPT) 55 U/L (8-55); AST (SGOT) 55 U/L (5-34); Albumin 2.3 g/dL (3.4-4.8); Alkaline Phosphatase 70 U/L (40-110); Anion Gap 12 mmol/L (10-20); BUN (Urea Nitrogen) 53 mg/dL (8.4-25.7); Bilirubin, Total 1.4 mg/dL (0.2-1.2); Calc. Creatinine Clearance 0 mL/min (70-130); Calcium 6.9 mg/dL (7.8-10.44); Carbon Dioxide 19 mmol/L (23-31); Chloride 102 mmol/L (98-107); Globulin 2.7 g/dL (2.4-3.5); Lipase 21 U/L (8-78); Phosphorus 2.4 mg/dL (2.3-4.7); Potassium 3.1 mmol/L (3.5-5.1); Sodium 130 mmol/L (136-145)
--- NOTE | 2020-06-11 20:26 | CT ---
Head CT without contrast 06/11/2020: COMPARISON: 07/06/2019 HISTORY: Confusion, hyperglycemia, altered mental status TECHNIQUE: Axial CT imaging at 5 mm intervals from vertex through skull base without contrast FINDINGS: The visualized paranasal sinuses and mastoid air cells appear well-aerated. There is no dis placed calvarial fracture, intracranial hemorrhage, midline shift, or mass effect. There is stable mild cerebral volume loss with mild periventricular hypodensity suggesting small vessel disease. IMPRESSION: No acute findings.
[2020-06-11 20:31] LABS: Glucose 620 mg/dL (83-110)
--- NOTE | 2020-06-11 20:35 | RAD ---
Portable frontal chest radiograph: 06/11/2020 COMPARISON: 04/28/2020 HISTORY: Altered mental status FINDINGS: Subtle nodular density in the left lung apex noted on the prior examination is difficult to visualize on this exam. Recent CT performed 04/28/2020 demonstrates a nodule in the left lung apex. Please refer to that CT examination for further assessment. There is an ill-defined area of hazy opac ity in the right lung apex, not significantly changed. There is mild diffuse increased linear interstitial density with pulmonary hyperinflation suggesting COPD, stable. Heart and mediastinal contours are stable. Stable atherosclerotic calcification of the aortic arch. IMPRESSION: Stable appearance of the chest. No focal consolidation or alveolar edema.
[2020-06-11 20:46] LABS: Hemoglobin 12.8 g/dL (14.0-18.0); Mean Corpuscular HGB CONC 33.3 g/dL (32.0-36.0); Mean Platelet Volume 14.5 fL (7.4-10.4); Platelet Count 13 thou/uL (130-400); RBC Distribution Width 14.7 % (11.5-14.5); Red Blood Cell (RBC) Count 3.77 mill/uL (4.70-6.10); Reflex for Review?? YES; White Blood Cell (WBC) Count 7.5 thou/uL (4.8-10.8)
[2020-06-11 20:48] LABS: Band 9 % (5-11); Hypochromia SLIGHT = 6-15 cells (100X) (0-5/hpf); Lymphocytes 15 % (21-51); MDiff Complete? YES; Macrocytosis SLIGHT = 6-15 cells (100X) (0-5/hpf); Monocytes 3 % (0-10); Neutrophil 73 % (42-75); Platelet Morphology Comment Appears Decreased
[2020-06-11] MEDS ORDERED: Albuterol 200 PUFF (6.7GM INHALER) ONE (20:49)
[2020-06-11 20:50] LABS: CKMB 6.8 ng/mL (0-6.6)
[2020-06-11] MEDS ORDERED: Potassium Chloride 20 MEQ TAB ONE (20:50)
[2020-06-11] MEDS ORDERED: Magnesium 2 GM/50 ML BAG (IN WATER) ONE (20:50)
[2020-06-11 20:51] LABS: Bilirubin Negative (Negative); Blood, Urine 2+ (Negative); Clarity Clear (Clear); Glucose, Urine (Dipstick) Greater than 1000 mg/dL (Negative); Ketone, Urine Negative (Negative); Leukocyte Negative Leu/uL (Negative); Nitrite Negative (Negative); Protein, Urine (Dipstick) 70 mg/dL (Neg-Trace); RBC/HPF Greater than 50 HPF (0-3); Specific Gravity, Urine 1.022 (1.002-1.036); Squamous Epithelial 0-3 HPF (0-3); Urobilinogen Normal mg/dL (Less than 2); WBC/HPF 0-3 HPF (0-3); pH, Urine 5.5 (5.0-9.0)
[2020-06-11 20:59] LABS: Bacteria/HPF None Seen HPF (None Seen)
[2020-06-11] MEDS ORDERED: NS 0.9% w/ 40 MEQ KCL 1,000 ML IV SCH (21:00)
[2020-06-11] MEDS ORDERED: Metoprolol Tartrate 5 MG/5 ML VIAL ONE (21:54)
[2020-06-11] MEDS ORDERED: INSULIN REGULAR IN 0.9 % NACL 100 UNIT/100 ML BAG ONE (22:21)
[2020-06-11] MEDS ORDERED: Diltiazem HCl 125 MG, Admixture Fee 1 EACH in Sodium Chloride 0.9% 100 ML IVPB SCH (22:30)
--- NOTE | 2020-06-11 22:35 | PDOC.HHP ---
Hospitalist HPI Altered mental status History of Present Illness: 75-year-old male with past medical history of HTN, diabetes mellitus typeinsulin-dependent, coronary artery disease on aspirin and Plavix, chronic tobacco use, history of COPD status post recent COPD exacerbation 2 weeks ago and discharge with prednisone, history of noncompliance with medication admitted now after being found by EMS slightly confused and brought to the ED. Head CT chest x-ray were unremarkable. Patient is a poor historian unable to give history. He repeatedly stated" he was smoking and smoking" and he was brought by EMS. On arrival in the ED was noted with elevated glucose of greater than 400 with elevated ketones as well as hypokalemia. He is markedly tachycardic with heart rate in the 130s with EKG showing A. fib versus intermittent AV block. He has received 3 L of lactated Ringer's IV fluid. He was given a dose of Cardizem his heart rate remained relatively unchanged. He denies any nausea or vomiting. He states he ate and drank yesterday. He is unable to give more history at this time. He has been admitted for presumed DKA Allergies/Adverse Reactions: Allergy/AdvReac Type Severity Reaction Status Date / Time No Known Allergies Allergy Verified 09/23/19 19:38 Home Medications: Medication Instructions Recorded Confirmed Type Aspirin [Ecotrin Low Strength] 81 mg PO DAILY 09/16/19 04/28/20 History Atorvastatin Calcium [Lipitor] 40 mg PO HS 09/16/19 04/28/20 History Carvedilol [Coreg] 25 mg PO BID 09/16/19 04/28/20 History Clopidogrel Bisulfate [Clopidogrel] 75 mg PO DAILY 09/16/19 04/28/20 History Gabapentin 600 mg PO BID 09/16/19 04/28/20 History Insulin Aspart [Novolog] 75 unit SQ DAILY-AC 09/16/19 04/28/20 History Omeprazole 40 mg PO DAILY 09/16/19 04/28/20 History traMADol HCl [Tramadol HCl] 50 mg PO Q6HR PRN 09/16/19 04/28/20 History traZODone HCl [Trazodone HCl] 100 mg PO HS 09/16/19 04/28/20 History Ferrous Sulfate 325 mg PO BID #60 tab 09/27/19 04/28/20 Rx Lisinopril [Prinivil] 20 mg PO DAILY #30 tab 09/27/19 04/28/20 Rx Amlodipine [Norvasc] 10 mg PO DAILY #30 tab 04/29/20 Rx predniSONE 20 mg PO BID-WM #10 tab 04/29/20 Rx Past History: PMHx: Hypertension, diabetes mellitus, CAD, anxiety disorder/depression See COPD, history of lung lesion PSHx: Unable to obtain FHx: Noncontributory Social: States he lives alone, admits to 1 pack/day tobacco use, unable to tell me about alcohol or illicit drug use Hospitalist HPI ROS ROS unobtainable: due to mental status Hospitalist Exam General Appearance: ill appearing General - other findings: Elderly male, bearded, appears unkempt Eye: PERRL, anicteric sclera ENT: normocephalic atraumatic, dry oral mucosa ENT - other findings: Markedly dry oral mucosa, audible wheezing Neck: supple, symmetric, no JVD Heart: RRR Heart - other findings: Tachycardic Respiratory: normal chest expansion, normal percussion, wheezes Respiratory - other findings: More prominent over upper airway Gastrointestinal: soft, non-tender, no palpable masses, no guarding Extremities: no cyanosis, no clubbing Skin: tenting Neurological: no focal deficits Neurological - other findings: Intermittently drowsy Musculoskeletal - other findings: Bilateral TMA's Psychiatric: somnolent Hospitalist Results Result Diagrams: 06/11/20 20:33 06/11/20 19:49 Lab results: Laboratory Last Values WBC 7.5 thou/uL (4.8-10.8) 06/11/20 20:33 RBC 3.77 mill/uL (4.70-6.10) L 06/11/20 20:33 Hgb 12.8 g/dL (14.0-18.0) L 06/11/20 20:33 Hct 38.5 % (42.0-52.0) L 06/11/20 20:33 MCV 102.0 fL (78.0-98.0) H 06/11/20 20:33 MCH 34.0 pg (27.0-31.0) H 06/11/20 20:33 MCHC 33.3 g/dL (32.0-36.0) 06/11/20 20:33 RDW 14.7 % (11.5-14.5) H 06/11/20 20:33 Plt Count 13 thou/uL (130-400) L* 06/11/20 20:33 MPV 14.5 fL (7.4-10.4) H 06/11/20 20:33 Neutrophils % (Manual) 73 % (42-75) 06/11/20 20:33 Band Neuts % (Manual) 9 % (5-11) 06/11/20 20:33 Lymphocytes % (Manual) 15 % (21-51) L 06/11/20 20:33 Monocytes % (Manual) 3 % (0-10) 06/11/20 20: Lymphocytes # Not Reportable 06/11/20 20:33 Hypochromia SLIGHT = 6-15 cells (100X) (0-5/hpf) 06/11/20 20:33 Plt Morphology Comment Appears Decreased L 06/11/20 20:33 Macrocytosis SLIGHT = 6-15 cells (100X) (0-5/hpf) 06/11/20 20:33 Sodium 130 mmol/L (136-145) L 06/11/20 19:49 Potassium 3.1 mmol/L (3.5-5.1) L 06/11/20 19:49 Chloride 102 mmol/L (98-107) 06/11/20 19:49 Carbon Dioxide 19 mmol/L (23-31) L 06/11/20 19:49 Anion Gap 12 mmol/L (10-20) 06/11/20 19:49 BUN 53 mg/dL (8.4-25.7) H 06/11/20 19:49 Creatinine 1.48 mg/dL (0.7-1.3) H 06/11/20 19:49 Estimated GFR (MDRD) 46 06/11/20 19:49 Glucose 620 mg/dL (83-110) H* 06/11/20 19:49 Calcium 6.9 mg/dL (7.8-10.44) L 06/11/20 19:49 Phosphorus 2.4 mg/dL (2.3-4.7) 06/11/20 19:49 Magnesium 2.0 mg/dL (1.6-2.6) 06/11/20 19:49 Total Bilirubin 1.4 mg/dL (0.2-1.2) H 06/11/20 19:49 AST 55 U/L (5-34) H 06/11/20 19:49 ALT 55 U/L (8-55) 06/11/20 19:49 Alkaline Phosphatase 70 U/L (40-110) 06/11/20 19:49 CK-MB (CK-2) 6.8 ng/mL (0-6.6) H* 06/11/20 19:49 Troponin I 0.202 ng/mL (< 0.028) H 06/11/20 19:49 Serum Total Protein 5.0 g/dL (5.8-8.1) L 06/11/20 19:49 Albumin 2.3 g/dL (3.4-4.8) L 06/11/20 19:49 Globulin 2.7 g/dL (2.4-3.5) 06/11/20 19:49 Albumin/Globulin Ratio 0.9 g/dL (1.2-2.2) L 06/11/20 19:49 Lipase 21 U/L (8-78) 06/11/20 19:49 TSH 3rd Generation 0.3566 uIU/mL (0.35-4.94) 06/11/20 19:49 Urine Color Yellow (Yellow) 06/11/20 20:10 Urine Clarity Clear (Clear) 06/11/20 20:10 Urine pH 5.5 (5.0-9.0) 06/11/20 20:10 Ur Specific [place] 1.022 (1.002-1.036) 06/11/20 20:10 Urine Protein 70 mg/dL (Neg-Trace) A 06/11/20 20:10 Urine Glucose (UA) Greater than 1000 mg/dL (Negative) A 06/11/20 20:10 Urine Ketones Negative mg/dL (Negative) 06/11/20 20:10 Urine Blood 2+ (Negative) A 06/11/20 20:10 Urine Nitrite Negative (Negative) 06/11/20 20:10 Urine Bilirubin Negative (Negative) 06/11/20 20:10 Urine Urobilinogen Normal mg/dL (Less than 2) 06/11/20 20:10 Ur Leukocyte Esterase Negative Nancy/uL (Negative) 06/11/20 20:10 Urine RBC Greater than 50 HPF (0-3) A 06/11/20 20:10 Urine WBC 0-3 HPF (0-3) 06/11/20 20:10 Ur Squamous Epith Cells 0-3 HPF (0-3) 06/11/20 20:10 Urine Bacteria None Seen HPF (None Seen) 06/11/20 20:10 Hyaline Casts 4-6 LPF (0-3) A 06/11/20 20:10 Salicylates Less than 8.0 mg/dL (15.0-30.0) L 06/11/20 19:49 Acetaminophen Less than 6.0 mcg/mL (10.0-30.0) L 06/11/20 19:49 Plasma Alcohol Less than 10 mg/dL (Less than 10) 06/11/20 19:49 B-Hydroxybutyrate 0.35 mmol/L (0.02-0.27) H 06/11/20 19:49 Chest x-ray Additional Comments: Head CTsmall vessel disease Chest x-rayhyperinflated lung, stable upper lung opacity Hospitalist H&P A/P (1) DKA, type 1 Code(s): E10.10 - TYPE 1 DIABETES MELLITUS WITH KETOACIDOSIS WITHOUT COMA Status: Acute (2) Atrial fibrillation with rapid ventricular response Code(s): I48.91 - UNSPECIFIED ATRIAL FIBRILLATION Status: Acute (3) COPD exacerbation Code(s): J44.1 - CHRONIC OBSTRUCTIVE PULMONARY DISEASE W (ACUTE) EXACERBATION Status: Acute (4) Discitis of cervical region Code(s): M46.42 - DISCITIS, UNSPECIFIED, CERVICAL REGION Status: Acute (5) History of aortic valve replacement Code(s): Z95.2 - PRESENCE OF PROSTHETIC HEART VALVE Status: Acute (6) Hypokalemia Code(s): E87.6 - HYPOKALEMIA Status: Acute (7) Anxiety and depression Code(s): F41.9 - ANXIETY DISORDER, UNSPECIFIED; F32.9 - MAJOR DEPRESSIVE DISORDER, SINGLE EPISODE, UNSPECIFIED Status: Chronic (8) CAD (coronary artery disease) Code(s): I25.10 - ATHSCL HEART DISEASE OF [place] CORONARY ARTERY W/O ANG PCTRS Status: Chronic Qualifiers: Coronary Disease-Associated Artery/Lesion type: [place] artery [place] vs. transplanted heart: [place] heart Associated angina: without angina Qualified Code(s): I25.10 - Atherosclerotic heart disease of [place] coronary artery without angina pectoris (9) Thrombocytopenia Code(s): D69.6 - THROMBOCYTOPENIA, UNSPECIFIED Status: Chronic (10) Acute metabolic encephalopathy Code(s): G93.41 - METABOLIC ENCEPHALOPATHY Status: Resolved Plan: #Hyperglycemia with metabolic acidosislikely due to type I DKA Despite prior history of type II DM, both present of calculated anion gap of 18 as well as elevated ketones appear consistent with type I DKA We will initiate insulin drip We will do BMP every 4 for now Switch to D5 NS with KCl if still acidotic and glucose less than 200 Aggressive IV fluid We will replete potassium Follow phosphorus level and replete ABG shows severe acidosis with pH of 7.14, follow VBG serially #Tachycardia/A. fib with RVRmay be due to electrolyte disorder Status post giving Cardizem Will avoid Cardizem drip to minimize risk of hypotension Monitor with correction of acidosis If persistent might do amiodarone loading #COPD with mild exacerbationstart DuoNebs every 4 hours Avoid steroids use for now Start Rocephin #Hypokalemiawe will replete Follow phosphorus level #Hypertensioncontrolled, hold lisinopril for now #Acute kidney injuryelevated creatinine at 1.48 Renal team follow-up #Acute metabolic encephalopathymildly confused now, follow with correction of DKA #Severe Thrombocytopeniamarkedly low platelet activating, will hold aspirin and Plavix for now Hold heparin use #DVT prophylaxisSCDs #Elevated troponinmild, may be due to demand mediated in setting of A. fib Hold anticoagulation for now Monitor trend #Presumed sepsisfollow blood culture, start empirical Rocephin #Chronic tobacco usenicotine patch #Advance directivefull code [facility], hospital stay for more than 48 hours
[2020-06-11] MEDS ORDERED: traMADol HCl 50 MG TAB PO PRN (22:45)
[2020-06-11] MEDS ORDERED: Ondansetron PF 4 MG/2 ML Vial IVP PRN (22:51)
[2020-06-11] MEDS ORDERED: Electrolyte Replacement Protocol 1 EACH IVPB SCH (22:51)
[2020-06-11] MEDS ORDERED: Dextrose 5 %-0.45 % NaCl 1,000 ML IV PRN (22:51)
[2020-06-11] MEDS ORDERED: Guaifenesin DM 100-10/5 ML UDCUP PO PRN (22:51)
[2020-06-11] MEDS ORDERED: Sodium Chloride 0.9% 1,000 ML IV PRN ×2 (22:51)
[2020-06-11] MEDS ORDERED: Calcium Gluc 4.6 MEQ/10 ML (100 MG/ML) ONE (22:55)
[2020-06-11] MEDS ORDERED: HUMULIN R 100 UNITS in Sodium Chloride 0.9% 100 ML IVPB SCH (23:00)
[2020-06-11] MEDS ORDERED: Calcium Gluc 4.6 MEQ/10 ML (100 MG/ML) SLOW IVP SCH (23:15)
[2020-06-11 23:16] LABS: Troponin I 0.227 ng/mL (< 0.028)
[2020-06-11 23:39] LABS: SARS-CoV-2 NAA Rapid Test Not Detected (NotDetected)
[2020-06-11 23:50] LABS: Anion Gap 15 mmol/L (10-20); BUN (Urea Nitrogen) 56 mg/dL (8.4-25.7); Calc. Creatinine Clearance 0 mL/min (70-130); Calcium 7.2 mg/dL (7.8-10.44); Carbon Dioxide 16 mmol/L (23-31); Chloride 107 mmol/L (98-107); Glucose 452 mg/dL (83-110); Potassium 3.6 mmol/L (3.5-5.1); Sodium 134 mmol/L (136-145)
[2020-06-12] MEDS: Potassium Chloride 40 MEQ in Sodium Chloride 0.45% 1,000 ML IV SCH ×2 (00:59→09:20)
[2020-06-12 01:22] VITALS: BMI 26.3
[2020-06-12] MEDS ORDERED: Amiodarone 150 MG in Dextrose 5% in Water 100 ML IVPB SCH (02:15)
[2020-06-12 03:07] LABS: Troponin I 0.409 ng/mL (< 0.028)
[2020-06-12] MEDS: Acetaminophen 650 MG Suppository PR PRN (03:13)
[2020-06-12 03:14] LABS: Anion Gap 13 mmol/L (10-20); BUN (Urea Nitrogen) 53 mg/dL (8.4-25.7); Calc. Creatinine Clearance 62 mL/min (70-130); Calc. Creatinine Clearance 65 mL/min (70-130); Calcium 7.5 mg/dL (7.8-10.44); Carbon Dioxide 14 mmol/L (23-31); Chloride 113 mmol/L (98-107); Chloride 114 mmol/L (98-107); Glucose 133 mg/dL (83-110); Glucose 134 mg/dL (83-110); Magnesium 2.3 mg/dL (1.6-2.6); Sodium 136 mmol/L (136-145); Sodium 137 mmol/L (136-145)
[2020-06-12] MEDS: cefTRIAXone\\ROCEPHIN 1 GM in Sodium Chloride 0.9% 100 ML IVPB SCH (03:21)
[2020-06-12] MEDS: D5 1/2 NS w/20 mEq KCL 1,000 ML IV PRN ×2 (03:25→07:32)
[2020-06-12] MEDS: Amiodarone 450 MG, Admixture Fee 1 EACH in Dextrose 5% in Water 250 ML IVPB SCH ×2 (04:46→14:12)
[2020-06-12] MEDS ORDERED: Amiodarone 150 MG, Admixture Fee 1 EACH in Dextrose 5% in Water 100 ML IVPB SCH (05:00)
[2020-06-12] MEDS: Nicotine 21 MG PATCH TD SCH (06:18)
[2020-06-12 07:05] LABS: Anion Gap 11 mmol/L (10-20); BUN (Urea Nitrogen) 54 mg/dL (8.4-25.7); Calc. Creatinine Clearance 62 mL/min (70-130); Calcium 7.6 mg/dL (7.8-10.44); Carbon Dioxide 16 mmol/L (23-31); Chloride 114 mmol/L (98-107); Glucose 163 mg/dL (83-110); Potassium 4.6 mmol/L (3.5-5.1); Sodium 136 mmol/L (136-145)
[2020-06-12 07:11] LABS: Troponin I 0.778 ng/mL (< 0.028)
[2020-06-12] MEDS: Ferrous Sulfate 325 MG TAB PO SCH ×2 (08:02→17:10)
--- NOTE | 2020-06-12 08:13 | CON ---
DATE OF CONSULTATION: 06/12/2020 REASON FOR CONSULTATION: Hyperglycemia. HISTORY OF PRESENT ILLNESS: Mr. Cruz is a 75-year-old confused male, who presented to the hospital last night with altered mental status. He cannot give me anything in the way of history other than he wants some ice. He has had multiple hospitalizations in the past, so his history is relatively well known. Last night, he was brought him with hyperglycemia, put on insulin drip. He has also been hydrated. PAST MEDICAL HISTORY: 1. Hypertension. 2. Diabetes mellitus type 2, insulin requiring. 3. Coronary artery disease. 4. Anxiety. 5. COPD. 6. History of some type of lung lesion. PAST SURGICAL HISTORY: He has had bilateral transmetatarsal amputations of the foot. FAMILY MEDICAL HISTORY: Unremarkable. MEDICATIONS: Prior to admission, 1. Aspirin 81 mg daily. 2. Atorvastatin 40 mg daily. 3. Coreg 25 mg b.i.d. 4. Plavix 75 mg daily. 5. Gabapentin 600 mg b.i.d. 6. Insulin NovoLog 75 units daily. 7. Omeprazole 40 mg daily. 8. Tramadol 50 mg daily. 9. Trazodone 100 mg nightly. 10. Iron sulfate mg b.i.d. 11. Lisinopril 20 mg daily. 12. Amlodipine 10 mg daily. 13. Prednisone 20 mg b.i.d. REVIEW OF SYSTEMS: Cannot be obtained. SOCIAL HISTORY: Smokes at least a pack a day. I do not know about alcohol or drug use. PHYSICAL EXAMINATION: VITAL SIGNS: Heart rate 128, O2 saturation 92% on 4 L, respiratory rate in the 30s, blood pressure 117/72, last temperature recorded 100.2, but has been as high as 101.5. GENERAL: This is a disheveled-appearing male, who is lying flat in bed, slightly tachypneic with grossly altered mental status. HEENT: Pupils reactive. Oropharynx dry. NECK: No JVD. LUNGS: Clear to auscultation. CARDIAC: S1 and S2, irregularly irregular, and tachycardic. ABDOMEN: Soft and nontender to palpation. GENITOURINARY: Hypospadias. EXTREMITIES: Bilateral transmetatarsal amputations well healed. LABORATORY DATA: Greater than 1000 glucose in his urine along with numerous red blood cells. Tox screen negative. COVID test negative. Sodium 136, potassium 4.6, chloride 114, CO2 of 16, BUN 54, creatinine 1.2, glucose 163. His anion gap is about 7. His initial anion gap was not elevated either. White blood cell count 7.5, hematocrit 38.5, and platelet count 13. IMAGING DATA: Brain CT: No acute findings. Chest x-ray: Hyperinflation, no mass, effusion, or infiltrate. ASSESSMENT: 1. Largest part of this individual's problem is medical noncompliance with his medication therapy. 2. Hyperglycemia at the time of admission without overt acidosis. 3. Febrile illness, perhaps indicative of some underlying infection. 4. Atrial fibrillation with rapid ventricular response. PLAN: 1. The patient is being hydrated via the DKA protocol. 2. He has been started on empiric antibiotics. 3. Cannot be on traditional DVT prophylaxis because of severe thrombocytopenia. 4. Add some Protonix for GI prophylaxis. 5. If he can get off the insulin drip, he can transfer to telemetry later today. Job ID: [id number]
[2020-06-12] MEDS ORDERED: Sodium Chloride 0.9% (PF) 10 ML VIAL FS PRN (08:15)
[2020-06-12 08:29] LABS: INR-International Normal Ratio 1.2; PTT 37.6 sec (22.9-36.1); Prothrombin Time 15.2 sec (12.0-14.7)
[2020-06-12] MEDS ORDERED: Carvedilol 25 MG TAB PO SCH (09:00)
[2020-06-12] MEDS ORDERED: Aspirin 81 mg Enteric Coated Tablet PO SCH (09:00)
[2020-06-12 09:15] LABS: Band 19 % (5-11); Burr Cells SLIGHT = 2-5 cells (100X) (0-1/hpf); Large Platelets SLIGHT; Lymphocytes 11 % (21-51); MDiff Complete? YES; Mean Corpuscular HGB CONC 32.1 g/dL (32.0-36.0); Mean Corpuscular Hemoglobin 31.8 pg (27.0-31.0); Mean Platelet Volume 15.2 fL (7.4-10.4); Monocytes 12 % (0-10); Neutrophil 58 % (42-75); Platelet Count 11 thou/uL (130-400); Platelet Morphology Comment Appears Decreased; RBC Distribution Width 14.8 % (11.5-14.5); Red Blood Cell (RBC) Count 3.46 mill/uL (4.70-6.10); White Blood Cell (WBC) Count 11.9 thou/uL (4.8-10.8)
[2020-06-12] MEDS: Digoxin 0.5 MG/2 ML AMP SLOW IVP SCH ×2 (09:17→14:54)
[2020-06-12] MEDS: Vancomycin 1 GM in Premix Bag 1 BAG IVPB SCH ×2 (09:18→21:01)
[2020-06-12] MEDS: Pantoprazole 40 MG VIAL IVP SCH (09:18)
[2020-06-12] MEDS: Bupropion 150 MG SR TAB PO SCH (09:19)
[2020-06-12] MEDS: Gabapentin 300 MG CAP PO SCH ×2 (09:19→21:00)
[2020-06-12 10:12] LABS: Amphetamine Not Detected (NotDetected); Barbiturates Screen Not Detected (NotDetected); Benzodiazepine Screen Not Detected (NotDetected); Cocaine Metabolite Screen Not Detected (NotDetected); Medtox Control Line Valid? VALID (VALID); Medtox Reader # READER 4; Methadone Not Detected (NotDetected); Methamphetamine Not Detected (NotDetected); Opiate Screen Not Detected (NotDetected); Oxycodone Screen Not Detected (NotDetected); Phencyclidine (PCP) Not Detected (NotDetected); THC/Cannabinoid Screen Not Detected (NotDetected); Tricyclic Screen Not Detected (NotDetected)
[2020-06-12] MEDS ORDERED: Insulin Glargine 20 UNITS in Pre-Filled Syringe 1 EACH SC SCH (10:19)
[2020-06-12] MEDS ORDERED: Dextrose 50% Abboject 50 ML SYRINGE SLOW IVP PRN (10:20)
[2020-06-12] MEDS ORDERED: Dextrose 5% in Water 1,000 ML IV PRN (10:20)
[2020-06-12] MEDS: HumaLOG 300 UNITS/3 ML VIAL SC PRN ×2 (10:38→16:19)
[2020-06-12] MEDS: Sodium Chloride 0.9% 1,000 ML IV SCH ×2 (10:39→17:10)
--- NOTE | 2020-06-12 15:41 | PDOC.HOSPP ---
- Subjective Encounter Date: 06/12/20 Encounter Time: 08:00 Subjective: awakens easily, not oriented but responds and follows to verbal questions is moving all extremities no abd pain or nausea - Objective Vital Signs & Weight: Vital Signs (12 hours) Temp Pulse Resp Pulse Ox 06/12/20 14:54 102 H 06/12/20 13:43 102 H 34 H 95 06/12/20 12:00 99.1 F 06/12/20 09:17 128 H 06/12/20 08:00 97 06/12/20 07:00 99.8 F H 06/12/20 06:18 92 L 06/12/20 06:00 100.2 F H 06/12/20 04:46 101.5 F H Weight Weight 194 lb 1.6 oz Most Recent Monitor Data Heart Rate from ECG 108 NIBP 110/74 NIBP BP-Mean 86 Respiration from ECG 37 SpO2 99 I&O: 06/11/20 06/12/20 06/13/20 06:59 06:59 06:59 Intake Total 2139.7 Output Total 350 320 Balance 1789.7 -320 Result Diagrams: 06/12/20 08:12 06/12/20 06:31 Additional Labs: Accuchecks 06/12/20 06/12/20 06/12/20 08:13 07:30 05:48 POC Glucose 209 H 188 H 137 H 06/12/20 06/12/20 06/12/20 04:11 02:33 01:30 POC Glucose 131 H 128 H 227 H 06/12/20 00:29 POC Glucose 312 H Hospitalist ROS - Medication Medications: Active Medications Generic Name Dose Route Start Last Admin Trade Name Freq PRN Reason Stop Dose Admin Acetaminophen 650 mg 06/12/20 02:33 06/12/20 03:13 Acetaminophen 650 Mg Suppository DE 650 mg Q6H PRN Administration Fever Albuterol/Ipratropium 3 ml 06/12/20 01:00 06/12/20 13:43 Ipratropium/Albuterol Sulfate 3 Ml Neb NEB 3 ml [id number] MICHAELA Administration Bupropion HCl 150 mg 06/12/20 09:00 06/12/20 09:19 Bupropion 150 Mg Sr Tab PO Not Given BID MICHAELA Ferrous Sulfate 325 mg 06/12/20 08:00 06/12/20 08:02 Ferrous Sulfate 325 Mg Tab PO Not Given BID-WM MICHAELA Gabapentin 600 mg 06/12/20 09:00 06/12/20 09:19 Gabapentin 300 Mg Cap PO Not Given BID MICHAELA Ceftriaxone Sodium 1 gm/ 100 mls @ 200 mls/hr 06/11/20 23:00 06/12/20 03:21 Sodium Chloride IVPB 100 mls Q24HR MICHAELA Administration Amiodarone HCl 450 mg/ 259 mls @ 0 mls/hr 06/12/20 05:00 06/12/20 14:12 Miscellaneous Medication 1 IVPB 259 mls each/ Dextrose/Water INF MICHAELA Administration Protocol As Directed Vancomycin HCl 1 gm/ Device 200 mls @ 200 mls/hr 06/12/20 09:00 06/12/20 09:18 IVPB 200 mls Q12HR MICHAELA Administration Sodium Chloride 1,000 mls @ 150 mls/hr 06/12/20 10:30 06/12/20 10:39 Normal Saline 0.9% IV 1,000 mls .Q6H40M MICHAELA Administration Insulin Human Lispro 0 units 06/12/20 10:20 06/12/20 10:38 Humalog 300 Units/3 Ml Vial SC 11 unit .AGGRESSIVE SLIDING PRN Administration Aggressive Correctional Scale Nicotine 21 mg 06/11/20 23:00 06/12/20 06:18 Nicotine 21 Mg Patch TD Not Given Q24HR MICHAELA Pantoprazole Sodium 40 mg 06/12/20 09:00 06/12/20 09:18 Pantoprazole 40 Mg Vial IVP 40 mg DAILY MICHAELA Administration Sodium Chloride 10 ml 06/12/20 09:00 06/12/20 09:18 Flush - Normal Saline 10 Ml Syringe IVF 10 ml Q12HR MICHAELA Administration Hospitalist Exam Vitals: Vital Signs (12 hours) Temp Pulse Resp Pulse Ox 06/12/20 14:54 102 H 06/12/20 13:43 102 H 34 H 95 06/12/20 12:00 99.1 F 06/12/20 09:17 128 H 06/12/20 08:00 97 06/12/20 07:00 99.8 F H 06/12/20 06:18 92 L 06/12/20 06:00 100.2 F H 06/12/20 04:46 101.5 F H Weight Weight 194 lb 1.6 oz Most Recent Monitor Data Heart Rate from ECG 108 NIBP 110/74 NIBP BP-Mean 86 Respiration from ECG 37 SpO2 99 General Appearance: awake alert Eye: PERRL, anicteric sclera ENT: no oropharyngeal lesions, dry oral mucosa Neck: supple, no JVD Heart: RRR, no murmur Respiratory: no wheezes, no rales, rhonchi Gastrointestinal: soft, non-tender, non-distended, normal bowel sounds Extremities: no cyanosis, no edema Neurological: cranial nerve grossly intact, no focal deficits Hosp A/P (1) DKA, type 1 Code(s): E10.10 - TYPE 1 DIABETES MELLITUS WITH KETOACIDOSIS WITHOUT COMA Status: Acute Qualifiers: Diabetes mellitus complication detail: without coma Qualified Code(s): E10.10 - Type 1 diabetes mellitus with ketoacidosis without coma (2) Atrial fibrillation with rapid ventricular response Code(s): I48.91 - UNSPECIFIED ATRIAL FIBRILLATION Status: Acute (3) Bacteremia due to methicillin resistant Staphylococcus aureus Code(s): R78.81 - BACTEREMIA Status: Acute (4) Alcoholic cirrhosis of liver Code(s): K70.30 - ALCOHOLIC CIRRHOSIS OF LIVER WITHOUT ASCITES Status: Chronic Qualifiers: Ascites presence: without ascites Qualified Code(s): K70.30 - Alcoholic cirrhosis of liver without ascites (5) Anemia, macrocytic Code(s): D53.9 - NUTRITIONAL ANEMIA, UNSPECIFIED Status: Chronic (6) Anxiety and depression Code(s): F41.9 - ANXIETY DISORDER, UNSPECIFIED; F32.9 - MAJOR DEPRESSIVE DISORDER, SINGLE EPISODE, UNSPECIFIED Status: Chronic (7) CAD (coronary artery disease) Code(s): I25.10 - ATHSCL HEART DISEASE OF [place] CORONARY ARTERY W/O ANG PCTRS Status: Chronic Qualifiers: Coronary Disease-Associated Artery/Lesion type: [place] artery [place] vs. 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 insulin use: with half-way use Diabetes mellitus complication status: with hyperglycemia Qualified Code(s): E11.65 - Type 2 diabetes mellitus with hyperglycemia; Z79.4 - [facility]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 (10) Dyslipidemia Code(s): E78.5 - HYPERLIPIDEMIA, UNSPECIFIED Status: Chronic (11) GERD (gastroesophageal reflux disease) Code(s): K21.9 - GASTRO-ESOPHAGEAL REFLUX DISEASE WITHOUT ESOPHAGITIS Status: Chronic Qualifiers: Esophagitis presence: esophagitis presence not specified Qualified Code(s): K21.9 - Gastro-esophageal reflux disease without esophagitis (12) HTN (hypertension) Code(s): I10 - ESSENTIAL (PRIMARY) HYPERTENSION Status: Chronic Qualifiers: Hypertension type: essential hypertension Qualified Code(s): I10 - Essential (primary) hypertension (13) Hypoalbuminemia due to protein-calorie malnutrition Code(s): E46 - UNSPECIFIED PROTEIN-CALORIE MALNUTRITION Status: Chronic (14) Hypothyroidism Code(s): E03.9 - HYPOTHYROIDISM, UNSPECIFIED Status: Chronic Qualifiers: Hypothyroidism type: unspecified Qualified Code(s): E03.9 - Hypothyroidism, unspecified (15) PVD (peripheral vascular disease) Code(s): I73.9 - PERIPHERAL VASCULAR DISEASE, UNSPECIFIED Status: Chronic (16) Thrombocytopenia Code(s): D69.6 - THROMBOCYTOPENIA, UNSPECIFIED Status: Chronic (17) Tobacco abuse Code(s): Z72.0 - TOBACCO USE Status: Chronic (18) h/o tavr Status: Chronic (19) Acute metabolic encephalopathy Code(s): G93.41 - METABOLIC ENCEPHALOPATHY Status: Acute (20) Sepsis with acute organ dysfunction Code(s): A41.9 - SEPSIS, UNSPECIFIED ORGANISM; R65.20 - SEVERE SEPSIS WITHOUT SEPTIC SHOCK Status: Acute Qualifiers: Sepsis type: methicillin resistant Staphylococcus aureus Severe sepsis acute organ dysfunction type: disseminated intravascular coagulopathy Severe sepsis shock status: without septic shock Qualified Code(s): A41.02 - Sepsis due to Methicillin resistant Staphylococcus aureus; R65.20 - Severe sepsis without septic shock; D65 - Disseminated intravascular coagulation [defibrinat ion syndrome] (21) Acute kidney injury Code(s): N17.9 - ACUTE KIDNEY FAILURE, UNSPECIFIED Status: Acute - Plan is on vanc and ceftriaxone prior h/o mrsa bacteremia, has h/o discitis in cervical and lumbar spine area, h/o epidural abscess, likely source is from one of these or urine likely has DIC due to mrsa bacteremia with very low platelets in addition to h/o alc cirrhosis dka has resolved, will start low dose lantus and escalate as needed danielle with met acidosis likely due to sepsis/prerenal alb levels of 2.3 likely due to poor nutrition plus cirrhosis afib is still uncontrolled, on amio drip and getting loaded with dig, will hold off BB due to underlying copd and ams to avoid resp failure hold oral meds until he can swallow well will consult and further imaging when he is more stable likely in am
--- NOTE | 2020-06-12 15:44 | CON ---
DATE OF CONSULTATION: REASON FOR CONSULTATION: Atrial fibrillation. PRIMARY MUSIC LIBRARY ASSISTANT: Dr. John Amin. HISTORY OF PRESENT ILLNESS: Mr. Cruz is an unfortunate 75-year-old gentleman, who recently presented with DKA. He appears to have atrial fibrillation. After reviewing the chart, it does not appear he has had atrial fibrillation in the past. He has underlying mental status changes, so difficult to obtain history. PAST MEDICAL HISTORY: CAD, status post TAVR, hypertension, anxiety, COPD, noncompliance. SURGICAL HISTORY: Partial amputation of foot. HOME MEDICATIONS: Include: 1. Aspirin. 2. Atorvastatin. 3. Coreg. 4. Plavix. 5. Gabapentin. 6. Insulin. 7. Omeprazole. 8. Trazodone. 9. Lisinopril. 10. Amlodipine. 11. Prednisone. REVIEW OF SYSTEMS: Unobtainable. PHYSICAL EXAMINATION: GENERAL: He is not oriented to time, person, or place. VITAL SIGNS: Blood pressure 110/74, pulse 108, respirations 20. NEUROLOGIC: The patient is alert and oriented x3 with no focal neurologic deficits. HEENT: Sclerae without icterus. Mouth has moist mucous membranes with normal pallor. NECK: No JVD. Carotid upstroke brisk. No bruits bilaterally. LUNGS: Clear to auscultation with unlabored respirations. BACK: No scoliosis or kyphosis. CARDIAC: Irregularly irregular. ABDOMEN: Soft, nontender, nondistended. No peritoneal signs present. No hepatosplenomegaly. No abnormal striae. EXTREMITIES: 2+ femoral and 2+ dorsalis pedis pulses. No cyanosis, clubbing, or edema. SKIN: No gross abnormalities. PERTINENT LABS: Platelet count 13,000, which is a new finding. Previous platelet count 112 on 04/28/2020. IMPRESSION: 1. Atrial fibrillation. 2. Diabetic ketoacidosis. 3. Mental status changes. 4. Noncompliance. 5. Severe coronary artery disease. 6. Status post transcatheter aortic valve replacement. RECOMMENDATIONS: Certainly difficult situation. Cannot anticoagulate Mr. Cruz. His platelet count is markedly low. We would recommend avoiding any heparin products due to previous low platelet count, but much lower than previous. Continue digoxin IV in addition to amiodarone. Blood pressure appears marginal and we may need to decrease carvedilol from 25 b.i.d. to 12.5 b.i.d. Job ID: [id number]
--- NOTE | 2020-06-12 19:54 | CON ---
DATE OF CONSULTATION: CONSULTING PHYSICIAN: Pacheco Wilson MD REQUESTING PHYSICIAN: Nick Alex MD REASON FOR CONSULTATION: Acute kidney injury. IMPRESSION: 1. Acute kidney injury. This is likely prerenal in the context of intravascular depletion from diabetic ketoacidosis. 2. Metabolic acidosis in the context of diabetic ketoacidosis. 3. Hypokalemia. 4. Hyponatremia, partly pseudohyponatremia in the context of severe hyperglycemia. PLAN: 1. DKA management protocol should be enough to address this patient's acute kidney injury as well as the electrolyte abnormalities and acid-base disorder. However, pay very close attention to this patient's potassium as the metabolic acidosis begin to shift towards normalization and replete potassium accordingly due to cellular shift of potassium. 2. Further management will be dependent on the clinical course. HISTORY OF PRESENT ILLNESS: A 75-year-old gentleman with history of hypertension; diabetes, insulin dependent; peripheral artery disease; COPD; tobacco use, who presented here with altered mental status and noted to have severely elevated blood sugar level as well as evidence of acute kidney injury. As a result of this, the patient has been taken to involve Renal in the management of this case. PAST MEDICAL HISTORY: As documented in the body of the history. MEDICATIONS: As documented on [employer]. FAMILY HISTORY: Nonsignificantly related to present illness. SOCIAL HISTORY: Significant for tobacco abuse. REVIEW OF SYSTEMS: Somewhat limited given the mental status of this patient. PHYSICAL EXAMINATION: GENERAL: The patient is found to be ill looking. Somewhat dry oral mucosa. HEENT: Unremarkable except for dry oral mucosa. CARDIOVASCULAR SYSTEM: First and second heart sounds were heard. RESPIRATORY SYSTEM: Clear to auscultation. DIGESTIVE SYSTEM: Revealed a benign abdomen with positive bowel sounds. EXTREMITIES: No peripheral edema. SKIN: No new gross rash. LYMPHATICS: No peripheral lymphadenopathy. SUMMARY: A 75-year-old gentleman with insulin-dependent diabetes, who presented here with severe hyperglycemia as well as evidence of acute kidney injury. Thank you for this consultation. We will follow with you. Job ID: [id number]
[2020-06-12] MEDS: traZODone HCl 50 MG TAB PO SCH (21:00)
[2020-06-12] MEDS ORDERED: Atorvastatin Calcium 40 MG TAB PO SCH (21:00)
[2020-06-12] MEDS: Carvedilol 25 MG TAB PO SCH (21:01)
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
[2020-06-12] MEDS ORDERED: Furosemide 40 MG/4 ML VIAL SLOW IVP SCH (23:15)
[2020-06-12] MEDS ORDERED: Dextrose 5% in Water 1,000 ML IV SCH (23:15)
--- NOTE | 2020-06-12 23:32 | CT ---
Head CT without contrast 06/12/2020: COMPARISON: 06/11/2020 HISTORY: Left-sided facial droop TECHNIQUE: Axial CT imaging at 2.5 mm intervals from vertex through skull base without contrast. Kim nal and sagittal reformatted imaging obtained. FINDINGS: There is a new area of intra-axial hypodensity measuring 3 cm in AP dimension and 2.3 cm in transverse dimension within the lateral aspect of the left frontal lobe on axial image 47. No intracranial hemorrhage, midline shift, or mass effect is seen. The visualized paranasal sinuses a nd mastoid air cells appear well-aerated. There is no displaced calvarial fracture. IMPRESSION: There is a new area of intra-axial hypodensity within the left frontal region suspicious for an area of acute infarction. Further assessment via MRI is suggested. Dr. Alex made aware via [place] [facility] at 11:29 PM 06/12/2020
--- NOTE | 2020-06-12 23:52 | PDOC.BPN ---
- Brief Progress Note Encounter Date: 06/12/20 Patient with persistent drowsiness all day, informed by nursing staff, head CT stat obtained, new areas of hypodensity worrisome for acute CVA noted. However patient has significant trouble cytopenia with platelet count of 11, will transfuse 1 unit of platelets Unsure why patient will have acute CVA with CVA thrombocytopenia although it is possible that the CVA area may be early onset petechia/hemorrhagic tendency Follow post platelet transfusion, may need aspirin and Plavix post platelet lovelace sfusion With differ further management to neuro consulted now
[2020-06-13] MEDS: Insulin Glargine 10 UNITS in Pre-Filled Syringe 1 EACH SC SCH ×2 (03:29→09:35)
[2020-06-13] MEDS: Bupropion 150 MG SR TAB PO SCH ×3 (03:29→23:18)
[2020-06-13] MEDS: Amiodarone 450 MG, Admixture Fee 1 EACH in Dextrose 5% in Water 250 ML IVPB SCH ×2 (03:30→17:24)
[2020-06-13] MEDS: cefTRIAXone\\ROCEPHIN 1 GM in Sodium Chloride 0.9% 100 ML IVPB SCH ×2 (04:04→23:29)
[2020-06-13 07:13] LABS: Hemoglobin 10.5 g/dL (14.0-18.0); Mean Corpuscular HGB CONC 32.4 g/dL (32.0-36.0); Mean Corpuscular Hemoglobin 32.4 pg (27.0-31.0); Mean Platelet Volume 15.1 fL (7.4-10.4); Platelet Count 14 thou/uL (130-400); RBC Distribution Width 15.2 % (11.5-14.5); Red Blood Cell (RBC) Count 3.25 mill/uL (4.70-6.10); White Blood Cell (WBC) Count 6.5 thou/uL (4.8-10.8)
[2020-06-13 07:26] LABS: Anion Gap 14 mmol/L (10-20); BUN (Urea Nitrogen) 64 mg/dL (8.4-25.7); Calc. Creatinine Clearance 64 mL/min (70-130); Calcium 7.2 mg/dL (7.8-10.44); Carbon Dioxide 14 mmol/L (23-31); Chloride 113 mmol/L (98-107); Glucose 307 mg/dL (83-110); Sodium 136 mmol/L (136-145)
[2020-06-13] MEDS: Nicotine 21 MG PATCH TD SCH ×2 (07:36→23:55)
[2020-06-13] MEDS ORDERED: Clopidogrel Bisulfate 75 MG TAB PO SCH (09:00)
[2020-06-13 09:02] LABS: Band 26 % (5-11); Bite Cells SLIGHT = 2-5 cells (100X) (0-1/hpf); Burr Cells SLIGHT = 2-5 cells (100X) (0-1/hpf); Lymphocytes 12 % (21-51); MDiff Complete? YES; Monocytes 8 % (0-10); Neutrophil 51 % (42-75); Platelet Morphology Comment Appears Decreased; Polychromasia SLIGHT = 2-3 cells (100X) (0-2/hpf); Reactive Lymphocytes 3 % (0-10); Schistocytes SLIGHT = 2-5 cells (100X) (0-1/hpf)
[2020-06-13] MEDS: Vancomycin 1 GM in Premix Bag 1 BAG IVPB SCH ×2 (09:13→23:29)
[2020-06-13] MEDS: Aspirin 300 MG Suppository PR SCH ×2 (09:14→09:39)
[2020-06-13] MEDS: Pantoprazole 40 MG VIAL IVP SCH (09:14)
[2020-06-13] MEDS: HumaLOG 300 UNITS/3 ML VIAL SC PRN (09:36)
[2020-06-13 10:48] LABS: Syphilis Antibody Nonreactive (Nonreactive); Syphilis Antibody Index 0.05 S/CO (<1.00 Non-Reactive)
[2020-06-13] MEDS: Carvedilol 25 MG TAB PO SCH ×2 (11:29→23:19)
[2020-06-13] MEDS: Ferrous Sulfate 325 MG TAB PO SCH (11:29)
[2020-06-13] MEDS ORDERED: Sodium Chloride 0.9% 1,000 ML IV SCH (13:15)
--- NOTE | 2020-06-13 13:22 | CON ---
NEUROLOGY CONSULTATION DATE OF CONSULTATION: 06/13/2020 REASON FOR CONSULTATION: Altered mental status. HISTORY OF PRESENT ILLNESS: Mr. John Cruz is a 75-year-old male with medical history significant for hypertension, insulin-dependent diabetes mellitus, coronary artery disease on aspirin and Plavix, chronic alcohol abuse, and history of COPD, who is status post recent COPD exacerbation 2 weeks ago and discharged on prednisone, admitted by the EMS because of altered mental status. The patient is currently intubated and sedated and is unable to provide the history. History is obtained from review of the medical records. He was brought by the EMS. On arrival to the emergency room, his glucose was greater than 400 with elevated ketones as well as hypokalemia. He was admitted and treated for presumed DKA. REVIEW OF SYSTEMS: Not obtainable secondary to the patient's mental status. Allergies/Adverse Reactions: Allergy/AdvReac Type Severity Reaction Status Date / Time No Known Allergies Allergy Verified 09/23/19 19:38 Home Medications: Medication Instructions Recorded Confirmed Type Aspirin [Ecotrin Low Strength] 81 mg PO DAILY 09/16/19 04/28/20 History Atorvastatin Calcium [Lipitor] 40 mg PO HS 09/16/19 04/28/20 History Carvedilol [Coreg] 25 mg PO BID 09/16/19 04/28/20 History Clopidogrel Bisulfate [Clopidogrel] 75 mg PO DAILY 09/16/19 04/28/20 History Gabapentin 600 mg PO BID 09/16/19 04/28/20 History Insulin Aspart [Novolog] 75 unit SQ DAILY-AC 09/16/19 04/28/20 History Omeprazole 40 mg PO DAILY 09/16/19 04/28/20 History traMADol HCl [Tramadol HCl] 50 mg PO Q6HR PRN 09/16/19 04/28/20 History traZODone HCl [Trazodone HCl] 100 mg PO HS 09/16/19 04/28/20 History Ferrous Sulfate 325 mg PO BID #60 tab 09/27/19 04/28/20 Rx Lisinopril [Prinivil] 20 mg PO DAILY #30 tab 09/27/19 04/28/20 Rx Amlodipine [Norvasc] 10 mg PO DAILY #30 tab 04/29/20 Rx predniSONE 20 mg PO BID- #10 tab 04/29/20 Rx Vital Signs & Weight: Vital Signs (12 hours) Temp Pulse Resp Pulse Ox 06/13/20 12:00 97.2 F L 06/13/20 08:00 100 06/13/20 07:00 97.0 F L 06/13/20 04:55 75 33 H 94 L 06/13/20 04:00 98.3 F 06/13/20 03:52 98.7 F 99 06/13/20 02:20 98.7 F 99 06/13/20 02:18 96 06/13/20 02:05 98.8 F 99 Weight Weight 194 lb 1.6 oz Most Recent Monitor Data Heart Rate from ECG 87 NIBP 110/51 NIBP BP-Mean 70 Respiration from ECG 27 SpO2 96 I&O: 06/12/20 06/13/20 06/14/20 06:59 06:59 06:59 Intake Total 2139.7 4352 200 Output Total 350 1370 380 Balance 1789.7 2982 -180 Additional Labs: Accuchecks 06/13/20 06/13/20 06/13/20 12:00 09:29 06:06 POC Glucose 349 H 398 H 261 H 06/12/20 06/12/20 06/12/20 22:53 16:17 12:08 POC Glucose 209 H 239 H 297 H 06/12/20 06/12/20 06/11/20 10:15 09:21 23:11 POC Glucose 301 H 235 H 381 H 06/11/20 06/11/20 06/11/20 22:44 21:28 20:38 POC Glucose 438 H 480 H 520 H 06/11/20 06/11/20 19:54 19:14 POC Glucose Greater than 530 H* Greater than 530 H* Active Medications Generic Name Dose Route Start Last Admin Trade Name Freq PRN Reason Stop Dose Admin Acetaminophen 650 mg 06/12/20 02:33 06/12/20 03:13 Acetaminophen 650 Mg Suppository AL 650 mg Q6H PRN Administration Fever Albuterol/Ipratropium 3 ml 06/12/20 01:00 06/13/20 04:55 Ipratropium/Albuterol Sulfate 3 Ml Neb NEB 3 ml [id number] MICHAELA Administration Bupropion HCl 150 mg 06/12/20 09:00 06/13/20 11:29 Bupropion 150 Mg Sr Tab PO Not Given BID MICHAELA Carvedilol 12.5 mg 06/12/20 21:00 06/13/20 11:29 Carvedilol 25 Mg Tab PO Not Given BID MICHAELA Gabapentin 600 mg 06/12/20 09:00 06/12/20 21:00 Gabapentin 300 Mg Cap PO 600 mg BID MICHAELA Administration Ceftriaxone Sodium 1 gm/ 100 mls @ 200 mls/hr 06/11/20 23:00 06/13/20 04:04 Sodium Chloride IVPB 100 mls Q24HR MICHAELA Administration Amiodarone HCl 450 mg/ 259 mls @ 0 mls/hr 06/12/20 05:00 06/13/20 03:30 Miscellaneous Medication 1 IVPB 259 mls each/ Dextrose/Water INF MICHAELA Administration Protocol As Directed Vancomycin HCl 1 gm/ Device 200 mls @ 200 mls/hr 06/12/20 09:00 06/13/20 09:13 IVPB 200 mls Q12HR MICHAELA Administration Insulin Glargine 10 units/ 0.1 mls @ 0 mls/hr 06/12/20 21:00 06/13/20 09:35 Miscellaneous Medication SC 0.1 mls BID MICHAELA Administration Insulin Human Lispro 0 units 06/12/20 10:20 06/13/20 09:36 Humalog 300 Units/3 Ml Vial SC 13 unit .AGGRESSIVE SLIDING PRN Administration Aggressive Correctional Scale Nicotine 21 mg 06/11/20 23:00 06/13/20 07:36 Nicotine 21 Mg Patch TD Not Given Q24HR MICHAELA Sodium Chloride 10 ml 06/12/20 09:00 06/13/20 09:37 Flush - Normal Saline 10 Ml Syringe IVF 10 ml Q12HR MICHAELA Administration Trazodone HCl 100 mg 06/12/20 21:00 06/12/20 21:00 Trazodone Hcl 50 Mg Tab PO 100 mg HS MICHAELA Administration PAST MEDICAL HISTORY: Hypertension, diabetes mellitus, coronary artery disease, anxiety disorder, depression. PAST SURGICAL HISTORY: None. FAMILY HISTORY: No significant family history. SOCIAL HISTORY: The patient lives alone. He smokes one pack per day. No documented history of alcohol or drug abuse. PHYSICAL EXAMINATION: GENERAL APPEARANCE: Elderly male, somnolent, does not follow commands, does not maintain eye contact. Per nursing staff, he was awake earlier in the morning and was A and O x2. CVS: Regular rate and rhythm. CHEST: Clear. ABDOMEN: Soft. NECK: Supple. NEUROLOGIC: Mental status; the patient is extremely somnolent. He does not open eyes to verbal stimuli, does not follow commands, does not maintain eye contact. Cranial nerves; pupils 3 mm, round and reactive to light. Face symmetric. Tongue midline. Corneals positive. Motor, muscle tone and bulk are normal. Minimal movement of all 4 extremities. No spontaneous movement seen. Sensory, minimal movement of all 4 extremities to nailbed pressure. Gait deferred due to the patient's safety reason. DATA REVIEWED: I reviewed the labs which were significant for anemia, hemoglobin of 12.8 and hematocrit of 38.5, and thrombocytopenia with only platelets 13. The other labs were significant for hyponatremia 130 and hypokalemia of 3.1, and acute kidney injury with BUN of 53, creatinine of 1.48, and hyperglycemia 620. Head CT showed small vessel disease. Chest x-ray shows hyperinflated lungs. Lab results: Laboratory Last Values WBC 7.5 thou/uL (4.8-10.8) 06/11/20 20: RBC 3.77 mill/uL (4.70-6.10) L 06/11/20 20:33 Hgb 12.8 g/dL (14.0-18.0) L 06/11/20 20:33 Hct 38.5 % (42.0-52.0) L 06/11/20 20:33 MCV 102.0 fL (78.0-98.0) H 06/11/20 20:33 MCH 34.0 pg (27.0-31.0) H 06/11/20 20:33 MCHC 33.3 g/dL (32.0-36.0) 06/11/20 20:33 RDW 14.7 % (11.5-14.5) H 06/11/20 20:33 Plt Count 13 thou/uL (130-400) L* 06/11/20 20:33 MPV 14.5 fL (7.4-10.4) H 06/11/20 20:33 Neutrophils % (Manual) 73 % (42-75) 06/11/20 20:33 Band Neuts % (Manual) 9 % (5-11) 06/11/20 20:33 Lymphocytes % (Manual) 15 % (21-51) L 06/11/20 20:33 Monocytes % (Manual) 3 % (0-10) 06/11/20 20:33 Lymphocytes # Not Reportable 06/11/20 20:33 Hypochromia SLIGHT = 6-15 cells (100X) (0-5/hpf) 06/11/20 20:33 Plt Morphology Comment Appears Decreased L 06/11/20 20:33 Macrocytosis SLIGHT = 6-15 cells (100X) (0-5/hpf) 06/11/20 20:33 Sodium 130 mmol/L (136-145) L 06/11/20 19:49 Potassium 3.1 mmol/L (3.5-5.1) L 06/11/20 19:49 Chloride 102 mmol/L (98-107) 06/11/20 19:49 Carbon Dioxide 19 mmol/L (23-31) L 06/11/20 19:49 Anion Gap 12 mmol/L (10-20) 06/11/20 19:49 BUN 53 mg/dL (8.4-25.7) H 06/11/20 19:49 Creatinine 1.48 mg/dL (0.7-1.3) H 06/11/20 19:49 Estimated GFR (MDRD) 46 06/11/20 19:49 Glucose 620 mg/dL (83-110) H* 06/11/20 19:49 Calcium 6.9 mg/dL (7.8-10.44) L 06/11/20 19:49 Phosphorus 2.4 mg/dL (2.3-4.7) 06/11/20 19:49 Magnesium 2.0 mg/dL (1.6-2.6) 06/11/20 19:49 Total Bilirubin 1.4 mg/dL (0.2-1.2) H 06/11/20 19:49 AST 55 U/L (5-34) H 06/11/20 19:49 ALT 55 U/L (8-55) 06/11/20 19:49 Alkaline Phosphatase 70 U/L (40-110) 06/11/20 19:49 CK-MB (CK-2) 6.8 ng/mL (0-6.6) H* 06/11/20 19:49 Troponin I 0.202 ng/mL (< 0.028) H 06/11/20 19:49 Serum Total Protein 5.0 g/dL (5.8-8.1) L 06/11/20 19:49 Albumin 2.3 g/dL (3.4-4.8) L 06/11/20 19:49 Globulin 2.7 g/dL (2.4-3.5) 06/11/20 19:49 Albumin/Globulin Ratio 0.9 g/dL (1.2-2.2) L 06/11/20:49 Lipase 21 U/L (8-78) 06/11/20: TSH 3rd Generation 0.3566 uIU/mL (0.35-4.94) 06/11/20 19:49 Urine Color Yellow (Yellow) 06/11/20 20: Urine Clarity Clear (Clear) 06/11/20 20: Urine pH 5.5 (5.0-9.0) 06/11/20 20:10 Ur Specific [place] 1.022 (1.002-1.036) 06/11/20 20:10 Urine Protein 70 mg/dL (Neg-Trace) A 06/11/20 20:10 Urine Glucose (UA) Greater than 1000 mg/dL (Negative) A 06/11/20 20:10 Urine Ketones Negative mg/dL (Negative) 06/11/20 20:10 Urine Blood 2+ (Negative) A 06/11/20 20:10 Urine Nitrite Negative (Negative) 06/11/20 20:10 Urine Bilirubin Negative (Negative) 06/11/20:10 Urine Urobilinogen Normal mg/dL (Less than 2) 06/11/20 20:10 Ur Leukocyte Esterase Negative Nancy/uL (Negative) 06/11/20 20:10 Urine RBC Greater than 50 HPF (0-3) A 06/11/20 20:10 Urine WBC 0-3 HPF (0-3) 06/11/20 20:10 Ur Squamous Epith Cells 0-3 HPF (0-3) 06/11/20 20:10 Urine Bacteria None Seen HPF (None Seen) 06/11/20 20:10 Hyaline Casts 4-6 LPF (0-3) A 06/11/20 20:10 Salicylates Less than 8.0 mg/dL (15.0-30.0) L 06/11/20 19:49 Acetaminophen Less than 6.0 mcg/mL (10.0-30.0) L 06/11/20 19:49 Plasma Alcohol Less than 10 mg/dL (Less than 10) 06/11/20 19:49 B-Hydroxybutyrate 0.35 mmol/L (0.02-0.27) H 06/11/20 19:49 Chest x-ray Additional Comments: Head CTsmall vessel disease Chest x-rayhyperinflated lung, stable upper lung opacity ASSESSMENT AND PLAN: (1) DKA, type 1 Code(s): E10.10 - TYPE 1 DIABETES MELLITUS WITH KETOACIDOSIS WITHOUT COMA Status: Acute (2) Atrial fibrillation with rapid ventricular response Code(s): I48.91 - UNSPECIFIED ATRIAL FIBRILLATION Status: Acute (3) COPD exacerbation Code(s): J44.1 - CHRONIC OBSTRUCTIVE PULMONARY DISEASE W (ACUTE) EXACERBATION Status: Acute (4) Discitis of cervical region Code(s): M46.42 - DISCITIS, UNSPECIFIED, CERVICAL REGION Status: Acute (5) History of aortic valve replacement Code(s): Z95.2 - PRESENCE OF PROSTHETIC HEART VALVE Status: Acute (6) Hypokalemia Code(s): E87.6 - HYPOKALEMIA Status: Acute (7) Anxiety and depression Code(s): F41.9 - ANXIETY DISORDER, UNSPECIFIED; F32.9 - MAJOR DEPRESSIVE DISORDER, SINGLE EPISODE, UNSPECIFIED Status: Chronic (8) CAD (coronary artery disease) Code(s): I25.10 - ATHSCL HEART DISEASE OF [place] CORONARY ARTERY W/O ANG PCTRS Status: Chronic Qualifiers: Coronary Disease-Associated Artery/Lesion type: [place] artery [place] vs. transplanted heart: [place] heart Associated angina: without angina Qualified Code(s): I25.10 - Atherosclerotic heart disease of [place] coronary artery without angina pectoris (9) Thrombocytopenia Code(s): D69.6 - THROMBOCYTOPENIA, UNSPECIFIED Status: Chronic (10) Acute metabolic encephalopathy Code(s): G93.41 - METABOLIC ENCEPHALOPATHY Status: Resolved Mr. John Cruz is a 75-year-old male with history significant for insulin-dependent diabetes mellitus, coronary artery disease, nicotine abuse, history of medical noncompliance, and hypertension, presented with altered mental status. Altered mental status seems multifactorial most likely secondary to metabolic etiology; however, intracranial pathology could not be completely ruled out. Consider MRI of the brain to rule out acute intracranial process. EEG to rule out underlying cortical irritability. Neuro checks every 4 hours. Continue home medications. Continue medical management per primary team. PT/OT/Speech. We will continue to follow. Further recommendations will depend on the results of the testing. Plan discussed in detail with the nursing staff Thank you for the consult. Job ID: [id number] MTDD
--- NOTE | 2020-06-13 14:02 | PRG ---
DATE OF SERVICE: 06/13/2020 SUBJECTIVE: Hosea Cruz will awaken. He had symptoms suggestive of CVA last night. He is scheduled for an MRI today. OBJECTIVE: VITAL SIGNS: He is afebrile, heart rate is in 80s, blood pressure 110/51, and respiratory rates in the 20s. LUNGS: Equal breath sounds. HEART: Regular rhythm. ABDOMEN: Soft. EXTREMITIES: Without edema. LABORATORY DATA: White count 6.5, hemoglobin 10.5, platelets 14,000. Sodium 136, potassium 5, chloride 113, bicarb 14, BUN 64, creatinine 1.24, and glucose 398. IMPRESSION: 1. History of endocarditis, spinal infection, methicillin-resistant Staphylococcus aureus, history of coronary artery disease. 2. Diabetes. 3. History of cirrhosis secondary to great heavy alcohol use. 4. History of transcatheter aortic-valve replacement. 5. History of multiple amputations. 6. History of thrombocytopenia. 7. Positive blood cultures for methicillin-resistant Staphylococcus aureus. 8. History of gastrointestinal bleeds in the past. 9. History of splenic abscess. 10. History of West Nile in the past. With all of his cultures being positive for Staph, I would wonder if his central nervous system event is in a septic embolus. We will follow the other physicians caring for him. Job ID: [id number]
--- NOTE | 2020-06-13 14:04 | MRI ---
MRI of thebrain: 06/13/2020 COMPARISON:None available HISTORY:Findings suspicious for acute infarction within the left frontal lobe on the 06/12/2020 head C T, facial droop TECHNIQUE: Multiplanar multisequence MR imaging of thebrain without contrast Findings:The axial gradient echo imaging demonstrates no evidence for intracranial hemorrhage. Regional bone marrow signal intensity appears within normal limits. There is moderate diffuse cerebral volume loss with associated prominence of the CSF containing space s. Arterial flow voids at the axial level of the skull base appear unremarkable on the T2-weighted imagi ng. There are scattered foci of increased T2 and FLAIR signal within the periventricular, deep, and subco rtical white matter bilaterally, evidence of small vessel disease. The diffusion weighted imaging demonstrates an area of restricted diffusion consistent with acute inf arction involving the anterior lateral aspect of the left frontal lobe measuring 3.0 x 3.7 cm. Numerous additional foci of restricted diffusion consistent with acute infarction are seen scattered throughout bilateral cerebellar hemispheres, right greater than left. There are 2-3 punctate foci of restricted diffusion consistent with acute infarction in the region of the symone and there is a foc us of restricted diffusion within the midbrain on the right. Scattered subcentimeter foci of restricted diffusion are seen within the deep white matter of bilateral frontal lobes, the periventri cular white matter bilaterally adjacent to the frontal horns of bilateral lateral ventricles, and within the region of the right thalamus. There is a focus of restricted diffusion measuring less than a centimeter posterior to the sylvian fissure on the right and in the periventricular white matter adjacent to the atrium of the left lateral ventricle. IMPRESSION:There are numerous new areas of restricted diffusion consistent with acute infarction invo lving bilateral cerebellar and cerebral hemispheres as well as the brainstem. The largest focus is in the left frontal lobe as detailed above. Findings are consistent with an embolic phenomenon. No as sociated hemorrhage.
--- NOTE | 2020-06-13 14:05 | PDOC.HOSPP ---
- Subjective Encounter Date: 06/13/20 Encounter Time: 08:00 Subjective: awakens to touch, says very few words, not oriented moves all extremities - Objective Vital Signs & Weight: Vital Signs (12 hours) Temp Pulse Resp Pulse Ox 06/13/20 12:00 97.2 F L 06/13/20 08:00 100 06/13/20 07:00 97.0 F L 06/13/20 04:55 75 33 H 94 L 06/13/20 04:00 98.3 F 06/13/20 03:52 98.7 F 99 06/13/20 02:20 98.7 F 99 06/13/20 02:18 96 06/13/20 02:05 98.8 F 99 Weight Weight 194 lb 1.6 oz Most Recent Monitor Data Heart Rate from ECG 87 NIBP 110/51 NIBP BP-Mean 70 Respiration from ECG 27 SpO2 96 I&O: 06/12/20 06/13/20 06/14/20 06:59 06:59 06:59 Intake Total 2139.7 4352 200 Output Total 350 1370 380 Balance 1789.7 2982 -180 Result Diagrams: 06/13/20 06:57 06/13/20 06:57 Additional Labs: Accuchecks 06/13/20 06/13/20 06/13/20 12:00 09:29 06:06 POC Glucose 349 H 398 H 261 H 06/12/20 06/12/20 06/12/20 22:53 16:17 12:08 POC Glucose 209 H 239 H 297 H 06/12/20 06/12/20 06/11/20 10:15 09:21 23:11 POC Glucose 301 H 235 H 381 H 06/11/20 06/11/20 06/11/20 22:44 21:28 20:38 POC Glucose 438 H 480 H 520 H 06/11/20 06/11/20 19:54 19:14 POC Glucose Greater than 530 H* Greater than 530 H* Hospitalist ROS - Medication Medications: Active Medications Generic Name Dose Route Start Last Admin Trade Name Freq PRN Reason Stop Dose Admin Acetaminophen 650 mg 06/12/20 02:33 06/12/20 03:13 Acetaminophen 650 Mg Suppository [place] 650 mg Q6H PRN Administration Fever Albuterol/Ipratropium 3 ml 06/12/20 01:00 06/13/20 04:55 Ipratropium/Albuterol Sulfate 3 Ml Neb NEB 3 ml [id number] MICHAELA Administration Bupropion HCl 150 mg 06/12/20 09:00 06/13/20 11:29 Bupropion 150 Mg Sr Tab PO Not Given BID MICHAELA Carvedilol 12.5 mg 06/12/20 21:00 06/13/20 11:29 Carvedilol 25 Mg Tab PO Not Given BID MICHAELA Gabapentin 600 mg 06/12/20 09:00 06/12/20 21:00 Gabapentin 300 Mg Cap PO 600 mg BID MICHAELA Administration Ceftriaxone Sodium 1 gm/ 100 mls @ 200 mls/hr 06/11/20 23:00 06/13/20 04:04 Sodium Chloride IVPB 100 mls Q24HR MICHAELA Administration Amiodarone HCl 450 mg/ 259 mls @ 0 mls/hr 06/12/20 05:00 06/13/20 03:30 Miscellaneous Medication 1 IVPB 259 mls each/ Dextrose/Water INF MICHAELA Administration Protocol As Directed Vancomycin HCl 1 gm/ Device 200 mls @ 200 mls/hr 06/12/20 09:00 06/13/20 09:13 IVPB 200 mls Q12HR MICHAELA Administration Insulin Glargine 10 units/ 0.1 mls @ 0 mls/hr 06/12/20 21:00 06/13/20 09:35 Miscellaneous Medication SC 0.1 mls BID MICHAELA Administration Insulin Human Lispro 0 units 06/12/20 10:20 06/13/20 09:36 Humalog 300 Units/3 Ml Vial SC 13 unit .AGGRESSIVE SLIDING PRN Administration Aggressive Correctional Scale Nicotine 21 mg 06/11/20 23:00 06/13/20 07:36 Nicotine 21 Mg Patch TD Not Given Q24HR MICHAELA Sodium Chloride 10 ml 06/12/20 09:00 06/13/20 09:37 Flush - Normal Saline 10 Ml Syringe IVF 10 ml Q12HR MICHAELA Administration Trazodone HCl 100 mg 06/12/20 21:00 06/12/20 21:00 Trazodone Hcl 50 Mg Tab PO 100 mg HS MICHAELA Administration Hospitalist Exam Vitals: Vital Signs (12 hours) Temp Pulse Resp Pulse Ox 06/13/20 12:00 97.2 F L 06/13/20 08:00 100 06/13/20 07:00 97.0 F L 06/13/20 04:55 75 33 H 94 L 06/13/20 04:00 98.3 F 06/13/20 03:52 98.7 F 99 06/13/20 02:20 98.7 F 99 06/13/20 02:18 96 06/13/20 02:05 98.8 F 99 Weight Weight 194 lb 1.6 oz Most Recent Monitor Data Heart Rate from ECG 87 NIBP 110/51 NIBP BP-Mean 70 Respiration from ECG 27 SpO2 96 General Appearance: ill appearing Eye: PERRL, anicteric sclera ENT: no oropharyngeal lesions, moist mucosa Neck: supple, no JVD Heart: RRR, no murmur Respiratory: no wheezes, no rales Gastrointestinal: soft, non-tender, non-distended, normal bowel sounds Extremities: no cyanosis, 1+ LE edema Neurological: cranial nerve grossly intact Neurological - other findings: accurate neuro exam cannot be done as he is not oriented, moves all extremi Hosp A/P (1) Sepsis with acute organ dysfunction Code(s): A41.9 - SEPSIS, UNSPECIFIED ORGANISM; R65.20 - SEVERE SEPSIS WITHOUT SEPTIC SHOCK Status: Acute Qualifiers: Sepsis type: methicillin resistant Staphylococcus aureus Severe sepsis acute organ dysfunction type: disseminated intravascular coagulopathy Severe sepsis shock status: without septic shock Qualified Code(s): A41.02 - Sepsis due to Methicillin resistant Staphylococcus aureus; R65.20 - Severe sepsis without septic shock; D65 - Disseminated intravascular coagulation [defibrination syndrome] (2) Bacteremia due to methicillin resistant Staphylococcus aureus Code(s): R78.81 - BACTEREMIA Status: Acute (3) DKA, type 1 Code(s): E10.10 - TYPE 1 DIABETES MELLITUS WITH KETOACIDOSIS WITHOUT COMA Status: Resolved Qualifiers: Diabetes mellitus complication detail: without coma Qualified Code(s): E10.10 - Type 1 diabetes mellitus with ketoacidosis without coma (4) Atrial fibrillation with rapid ventricular response Code(s): I48.91 - UNSPECIFIED ATRIAL FIBRILLATION Status: Acute (5) Alcoholic cirrhosis of liver Code(s): K70.30 - ALCOHOLIC CIRRHOSIS OF LIVER WITHOUT ASCITES Status: Chronic Qualifiers: Ascites presence: without ascites Qualified Code(s): K70.30 - Alcoholic cirrhosis of liver without ascites (6) Anemia, macrocytic Code(s): D53.9 - NUTRITIONAL ANEMIA, UNSPECIFIED Status: Chronic (7) Anxiety and depression Code(s): F41.9 - ANXIETY DISORDER, UNSPECIFIED; F32.9 - MAJOR DEPRESSIVE DISORDER, SINGLE EPISODE, UNSPECIFIED Status: Chronic (8) CAD (coronary artery disease) Code(s): I25.10 - ATHSCL HEART DISEASE OF [place] CORONARY ARTERY W/O ANG PCTRS Status: Chronic Qualifiers: Coronary Disease-Associated Artery/Lesion type: [place] artery [place] vs. transplanted heart: [place] heart Associated angina: without angina Qualified Code(s): I25.10 - Atherosclerotic heart disease of [place] coronary artery without angina pectoris (9) COPD (chronic obstructive pulmonary disease) Status: Chronic Qualifiers: COPD type: unspecified COPD Qualified Code(s): J44.9 - Chronic obstructive pulmonary disease, unspecified (10) DM type 2 (diabetes mellitus, type 2) Status: Chronic Qualifiers: Diabetes mellitus residential insulin use: with residential use Diabetes mellitus complication status: with hyperglycemia Qualified Code(s): E11.65 - Type 2 diabetes mellitus with hyperglycemia; 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 (11) Dyslipidemia Code(s): E78.5 - HYPERLIPIDEMIA, UNSPECIFIED Status: Chronic (12) GERD (gastroesophageal reflux disease) Code(s): K21.9 - GASTRO-ESOPHAGEAL REFLUX DISEASE WITHOUT ESOPHAGITIS Status: Chronic Qualifiers: Esophagitis presence: esophagitis presence not specified Qualified Code(s): K21.9 - Gastro-esophageal reflux disease without esophagitis (13) HTN (hypertension) Code(s): I10 - ESSENTIAL (PRIMARY) HYPERTENSION Status: Chronic Qualifiers: Hypertension type: essential hypertension Qualified Code(s): I10 - Essential (primary) hypertension (14) Hypoalbuminemia due to protein-calorie malnutrition Code(s): E46 - UNSPECIFIED PROTEIN-CALORIE MALNUTRITION Status: Chronic (15) Hypothyroidism Code(s): E03.9 - HYPOTHYROIDISM, UNSPECIFIED Status: Chronic Qualifiers: Hypothyroidism type: unspecified Qualified Code(s): E03.9 - Hypothyroidism, unspecified (16) PVD (peripheral vascular disease) Code(s): I73.9 - PERIPHERAL VASCULAR DISEASE, UNSPECIFIED Status: Chronic (17) Thrombocytopenia Code(s): D69.6 - THROMBOCYTOPENIA, UNSPECIFIED Status: Chronic (18) Tobacco abuse Code(s): Z72.0 - TOBACCO USE Status: Chronic (19) h/o tavr Status: Chronic (20) Acute metabolic encephalopathy Code(s): G93.41 - METABOLIC ENCEPHALOPATHY Status: Acute (21) Acute kidney injury Code(s): N17.9 - ACUTE KIDNEY FAILURE, UNSPECIFIED Status: Acute (22) CVA (cerebral vascular accident) Code(s): I63.9 - CEREBRAL INFARCTION, UNSPECIFIED Status: Acute Qualifiers: CVA mechanism: other Qualified Code(s): I63.89 - Other cerebral infarction - Plan likely has had septic embolism to brain with left frontal area infarct, await MRI results has severe mrsa bacteremia is on vanc and ceftriaxone prior h/o mrsa bacteremia, 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 has DIC due to mrsa bacteremia/sepsis with very low platelets in addition to h/o alc cirrhosis dka has resolved, will increase lantus and escalate as needed danielle with met acidosis likely due to sepsis/prerenal alb levels of 2.3 likely due to poor nutrition plus cirrhosis afib is rate controlled, on amio drip, will hold off BB due to underlying copd and ams to avoid resp failure hold oral meds until he can swallow well appreciate help from , and further imaging when he is more stable await echo results I tried calling multiple phone numbers provided by and on [employer] and was unable to reach any family, Palliative care was able to reach out to son and he is a DNAR. poor prognosis
--- NOTE | 2020-06-13 14:24 | PRG ---
DATE OF SERVICE: 06/13/2020 OBJECTIVE: VITAL SIGNS: The patient noted with the following vital signs; afebrile, temperature 97.2, pulse 87, blood pressure 110/61, O2 sat of 96%. HEENT: Unremarkable. CARDIOVASCULAR SYSTEM: First and second heart sounds were heard. RESPIRATORY SYSTEM: Clear to auscultation. Digestive SYSTEM: Revealed a benign abdomen with positive bowel sounds. EXTREMITIES: No peripheral edema. SKIN: No new gross rash. LYMPHATICS: No peripheral lymphadenopathy. IMPRESSION: 1. Acute kidney injury, which seems to have improved. 2. Metabolic acidosis, seems to be worsening due to re-expansion of metabolic acidosis with normal saline infusion. 3. Mental status change, query cause. PLAN: 1. Discontinue normal saline and rather use a bicarb-based infusion to rehydrate and address the acidosis in this patient . 2. Further management will be dependent on the clinical course. Job ID: [id number]
[2020-06-13] MEDS ORDERED: Insulin Glargine 25 UNITS in Pre-Filled Syringe SC SCH (14:30)
--- NOTE | 2020-06-13 14:31 | PDOC.EEG ---
Neurology EEG Report - Report Report: This EEG was performed using 24 channel [employer] video EEG machine with 24 disc electrodes. This was an extended 2 hours 5 minutes of inpatient video EEG recording. Digital analysis of the EEG was done for spike and seizure detection which revealed no abnormalities. Background: There is a non sustained posterior background rhythm is 7-8 Hz. Reactivity seen with eye opening and closure. Hyperventilation: Not performed. Photic Stimulation: Bioccipital symmetric driving response is observed. Sleep: Drowsiness and sleep are observed. EEG Diagnosis: Occasional irregular theta activity seen during the recording. Slow nonsustained posterior background rhythm Clinical interpretation: This EEG is consistent with mild generalized nonspecific cerebral dysfunction.
[2020-06-13] MEDS: Sodium Bicarbonate 75 MEQ in Sodium Chloride 0.45% 1,000 ML IV SCH (14:48)
--- NOTE | 2020-06-13 14:52 | RAD ---
EXAM: Single view of the chest HISTORY: Respiratory distress COMPARISON: 06/11/2020 FINDINGS: Single view of the chest shows a normal sized cardiomediastinal silhouette. Developing airs pace opacity seen in the right lower lobe. No acute osseous abnormality. IMPRESSION: Right lower lobe infiltrate
[2020-06-13] MEDS: Gabapentin 300 MG CAP PO SCH ×2 (15:19→23:19)
--- NOTE | 2020-06-13 16:18 | PDOC.PALCO ---
Palliative Care Consult - Consult Details Requesting Physician: Dr Alex Reason for Consult: assistance with communication prognosis/disease, complex decision-making - Pertinent HPI 75 year old male who was discharged two weeks ago status post COPD exacerbation. Discharged with prednisone, known history of medical non compliance. He was found by EMS after one of his children could not get Mr Cruz on the phone and requested a well check. EMS found him confused, and transported to emergency room for evaluation. Noted to have Glucose over 400, ketones and hypokalemia. Tachycardia. Admitted for medical management of suspected DKA. - Pertinent PMH HTN, DMII, CAD, Depression , COPD - Social History Smoking Status: Current every day smoker Smoking: greater than 1 pack/day Drug Use History: none Living Situation: independent - Medications MAR Reviewed: Yes - Allergies Allergies/Adverse Reactions: Allergies Allergy/AdvReac Type Severity Reaction Status Date / Time No Known Allergies Allergy Verified 06/12/20 07:28 - Subjective Lethargic, no purposeful engagement. 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 Skin: cap refill <2 seconds, bruising, fragile Deviation from normal: brusing under left lower foot/amputation Deviation from normal: Encephalopathic, unable to determine orientation - Problem List (1) Palliative care encounter Code(s): Z51.5 - ENCOUNTER FOR PALLIATIVE CARE Current Visit: Yes Status: Acute (2) DKA, type 1 Code(s): E10.10 - TYPE 1 DIABETES MELLITUS WITH KETOACIDOSIS WITHOUT COMA Current Visit: Yes Status: Resolved Qualifiers: Diabetes mellitus complication detail: without coma Qualified Code(s): E10.10 - Type 1 diabetes mellitus with ketoacidosis without coma (3) Acute metabolic encephalopathy Code(s): G93.41 - METABOLIC ENCEPHALOPATHY Current Visit: No Status: Acute (4) Atrial fibrillation with rapid ventricular response Code(s): I48.91 - UNSPECIFIED ATRIAL FIBRILLATION Current Visit: No Status: Acute - Plan/Recommendations Plan: Patient son Hosea confirmed DNAR with [facility] VIVIENNE Tobin. Will assist with goal of care and family support after confirmation from neurology and direction of hospitalist. Palliative care will follow up 06/14/20 [] minutes spent on this encounter with >50% of the time in counseling and coordination of care. Thank you for this very appropriate consult.
[2020-06-13] MEDS ORDERED: Insulin Glargine 20 UNITS in Pre-Filled Syringe SC SCH (21:00)
[2020-06-13] MEDS: traZODone HCl 50 MG TAB PO SCH (23:19)
[2020-06-14] MEDS: Acetaminophen 650 MG Suppository PR PRN ×2 (01:58→13:11)
[2020-06-14 05:17] LABS: Hemoglobin 9.7 g/dL (14.0-18.0); Mean Corpuscular HGB CONC 34.6 g/dL (32.0-36.0); Mean Corpuscular Hemoglobin 34.2 pg (27.0-31.0); Mean Corpuscular Volume 98.8 fL (78.0-98.0); Platelet Count 13 thou/uL (130-400); RBC Distribution Width 15.3 % (11.5-14.5); Red Blood Cell (RBC) Count 2.85 mill/uL (4.70-6.10); White Blood Cell (WBC) Count 7.4 thou/uL (4.8-10.8)
[2020-06-14 05:33] LABS: ALT (SGPT) 42 U/L (8-55); AST (SGOT) 45 U/L (5-34); Albumin 1.7 g/dL (3.4-4.8); Alkaline Phosphatase 111 U/L (40-110); Anion Gap 10 mmol/L (10-20); BUN (Urea Nitrogen) 62 mg/dL (8.4-25.7); Bilirubin, Total 1.4 mg/dL (0.2-1.2); Calc. Creatinine Clearance 63 mL/min (70-130); Calcium 7.1 mg/dL (7.8-10.44); Carbon Dioxide 17 mmol/L (23-31); Chloride 115 mmol/L (98-107); Cholesterol 67 mg/dl (< 200 Desired); Globulin 2.4 g/dL (2.4-3.5); Glucose 250 mg/dL (83-110); HDL Cholesterol Less than 8 mg/dL (>60 Neg Risk); Potassium 3.8 mmol/L (3.5-5.1); Protein, Total 4.1 g/dL (5.8-8.1); Sodium 138 mmol/L (136-145); Triglycerides 168 mg/dL (Less than 150)
[2020-06-14 05:49] LABS: Cardiac Risk TEST NOT PERFORMED (Less than 4.5)
[2020-06-14 05:56] LABS: Band 30 % (5-11); Hypochromia SLIGHT = 6-15 cells (100X) (0-5/hpf); Lymphocytes 5 % (21-51); MDiff Complete? YES; Monocytes 10 % (0-10); Neutrophil 54 % (42-75); Platelet Morphology Comment Appears Decreased; Reactive Lymphocytes 1 % (0-10)
[2020-06-14] MEDS ORDERED: Aspirin Chewable 81 MG TAB PO SCH (09:00)
[2020-06-14] MEDS: Vancomycin 1 GM in Premix Bag 1 BAG IVPB SCH ×2 (09:30→21:11)
[2020-06-14] MEDS: Insulin Glargine 30 UNITS in Pre-Filled Syringe 1 EACH SC SCH ×2 (09:31→21:13)
[2020-06-14] MEDS: Carvedilol 25 MG TAB PO SCH ×2 (09:31→21:12)
[2020-06-14] MEDS: Gabapentin 300 MG CAP PO SCH ×2 (09:32→21:13)
[2020-06-14] MEDS: Bupropion 150 MG SR TAB PO SCH ×2 (09:38→21:12)
[2020-06-14] MEDS: HumaLOG 300 UNITS/3 ML VIAL SC PRN ×2 (10:50→16:55)
[2020-06-14] MEDS: Amiodarone 450 MG, Admixture Fee 1 EACH in Dextrose 5% in Water 250 ML IVPB SCH (12:57)
[2020-06-14] MEDS: Sodium Bicarbonate 75 MEQ in Sodium Chloride 0.45% 1,000 ML IV SCH (12:57)
--- NOTE | 2020-06-14 14:22 | PRG ---
DATE OF SERVICE: 06/14/2020 SUBJECTIVE: The patient noted with the following vital signs. OBJECTIVE: VITAL SIGNS: Temperature maximum of 100.1, pulse 88, blood pressure 122/65, O2 saturation of 98%. HEENT: Unremarkable. CARDIOVASCULAR SYSTEM: First and second heart sounds were heard. RESPIRATORY SYSTEM: Clear to auscultation. DIGESTIVE SYSTEM: Revealed a benign abdomen. EXTREMITIES: No peripheral edema. IMPRESSION: 1. Acute kidney injury, seems to be improved status post rehydration. 2. Mild metabolic acidosis. 3. Diabetes mellitus with diabetic ketoacidosis. PLAN: 1. We will continue current renal supportive measures. 2. Further management will be dependent on the clinical course. Job ID: [id number]
--- NOTE | 2020-06-14 15:01 | PRG ---
DATE OF SERVICE: 06/14/2020 SUBJECTIVE: John Cruz was being fed this morning. He can move all his extremities. He is pleasant and cooperative. OBJECTIVE: VITAL SIGNS: Temperature is 100.1, heart rate is 94, blood pressure 122/65, respiratory rates in the 20s, and oximetry is 98% on room air. LUNGS: Clear. HEART: Regular rhythm. ABDOMEN: Soft. LABORATORY DATA: White count 7.4, hemoglobin 9.7, and platelets 13,000. Sodium 138, potassium 3.8, chloride 115, bicarb 17, BUN 62, creatinine 1.27, and glucose 250. ASSESSMENT AND PLAN: Embolic cerebrovascular accident. With all of his blood cultures positive for methicillin-resistant Staphylococcus aureus, we would suspect that these may be septic emboli. Other problems could include history of prosthetic aortic valve, chronic kidney disease, hyperchloremic acidosis, and diabetes. He also has significant hypoalbuminemia and thrombocytopenia, likely associated with cirrhosis. We will continue to follow. Job ID: [id number]
--- NOTE | 2020-06-14 15:34 | PDOC.HOSPP ---
- Subjective Encounter Date: 06/14/20 Encounter Time: 08:00 Subjective: awake, keeps his eyes closed moves all extremities, no sob or abd pain - Objective Vital Signs & Weight: Vital Signs (12 hours) Temp Pulse Pulse Pulse Resp BP BP 06/14/20 13:24 88 24 H 06/14/20 13:11 100.1 F H 94 27 H 122/65 06/14/20 13:00 99.1 F 06/14/20 09:30 94 95 121/58 L 06/14/20 09:26 92 121/58 L 06/14/20 08:43 06/14/20 08:42 92 25 H 06/14/20 08:00 97.9 F 06/14/20 07:57 06/14/20 04:00 100.9 F H BP Pulse Ox Pulse Ox Pulse Ox 06/14/20 13:24 98 06/14/20 13:11 06/14/20 13:00 06/14/20 09:30 99/82 98 99 06/14/20 09:26 06/14/20 08:43 99 06/14/20 08:42 99 06/14/20 08:00 06/14/20 07:57 97 06/14/20 04:00 Weight Admit Weight 194 lb Weight 194 lb 1.6 oz Most Recent Monitor Data Heart Rate from ECG 97 NIBP 122/65 NIBP BP-Mean 84 Respiration from ECG 25 SpO2 96 I&O: 06/13/20 06/14/20 06/15/20 06:59 06:59 06:59 Intake Total 4352 2050.5 50 Output Total 1370 1715 420 Balance 2982 335.5 -370 Result Diagrams: 06/14/20 03:50 06/14/20 03:50 Additional Labs: Accuchecks 06/13/20 23:44 POC Glucose 239 H Hospitalist ROS - Medication Medications: Active Medications Generic Name Dose Route Start Last Admin Trade Name Freq PRN Reason Stop Dose Admin Acetaminophen 650 mg 06/12/20 02:33 06/14/20 13:11 Acetaminophen 650 Mg Suppository DC 650 mg Q6H PRN Administration Fever Albuterol/Ipratropium 3 ml 06/12/20 01:00 06/14/20 13:24 Ipratropium/Albuterol Sulfate 3 Ml Neb NEB 3 ml [id number] MICHAELA Administration Aspirin 81 mg 06/14/20 09:00 06/14/20 09:32 Aspirin Chewable 81 Mg Tab PO 81 mg DAILY MICHAELA Administration Bupropion HCl 150 mg 06/12/20 09:00 06/14/20 09:38 Bupropion 150 Mg Sr Tab PO 150 mg BID MICHAELA Administration Carvedilol 12.5 mg 06/12/20 21:00 06/14/20 09:31 Carvedilol 25 Mg Tab PO 12.5 mg BID MICHAELA Administration Gabapentin 600 mg 06/12/20 09:00 06/14/20 09:32 Gabapentin 300 Mg Cap PO 600 mg BID MICHAELA Administration Ceftriaxone Sodium 1 gm/ 100 mls @ 200 mls/hr 06/11/20 23:00 06/13/20 23:29 Sodium Chloride IVPB 100 mls Q24HR MICHAELA Administration Amiodarone HCl 450 mg/ 259 mls @ 0 mls/hr 06/12/20 05:00 06/14/20 12:57 Miscellaneous Medication 1 IVPB 259 mls each/ Dextrose/Water INF MICHAELA Administration Protocol As Directed Vancomycin HCl 1 gm/ Device 200 mls @ 200 mls/hr 06/12/20 09:00 06/14/20 09:30 IVPB 200 mls Q12HR MICHAELA Administration Sodium Bicarbonate 75 meq/ 1,075 mls @ 50 mls/hr 06/13/20 14:15 06/14/20 12:57 Sodium Chloride IV 1,075 mls .[id number] MICHAELA Administration Insulin Glargine 30 units/ 0.3 mls @ 0 mls/hr 06/14/20 09:00 06/14/20 09:31 Miscellaneous Medication SC 0.3 mls BID MICHAELA Administration Insulin Human Lispro 0 units 06/12/20 10:20 06/14/20 10:50 Humalog 300 Units/3 Ml Vial SC 6 unit .AGGRESSIVE SLIDING PRN Administration Aggressive Correctional Scale Nicotine 21 mg 06/11/20 23:00 06/13/20 23:55 Nicotine 21 Mg Patch TD 21 mg Q24HR MICHAELA Administration Pantoprazole Sodium 40 mg 06/14/20 09:00 06/14/20 09:32 Pantoprazole 40 Mg Tab PO 40 mg DAILY MICHAELA Administration Sodium Chloride 10 ml 06/12/20 09:00 06/14/20 09:33 Flush - Normal Saline 10 Ml Syringe IVF 10 ml Q12HR MICHAELA Administration Trazodone HCl 100 mg 06/12/20 21:00 06/13/20 23:19 Trazodone Hcl 50 Mg Tab PO Not Given [facility] Hospitalist Exam Vitals: Vital Signs (12 hours) Temp Pulse Pulse Pulse Resp BP BP 06/14/20 13:24 88 24 H 06/14/20 13:11 100.1 F H 94 27 H 122/65 06/14/20 13:00 99.1 F 06/14/20 09:30 94 95 121/58 L 06/14/20 09:26 92 121/58 L 06/14/20 08:43 06/14/20 08:42 92 25 H 06/14/20 08:00 97.9 F 06/14/20 07:57 06/14/20 04:00 100.9 F H BP Pulse Ox Pulse Ox Pulse Ox 06/14/20 13:24 98 06/14/20 13:11 06/14/20 13:00 06/14/20 09:30 99/82 98 99 06/14/20 09:26 06/14/20 08:43 99 06/14/20 08:42 99 06/14/20 08:00 06/14/20 07:57 97 06/14/20 04:00 Weight Admit Weight 194 lb Weight 194 lb 1.6 oz Most Recent Monitor Data Heart Rate from ECG 97 NIBP 122/65 NIBP BP-Mean 84 Respiration from ECG 25 SpO2 96 General Appearance: ill appearing Eye: PERRL, anicteric sclera ENT: no oropharyngeal lesions, dry oral mucosa Neck: supple, no JVD Heart: RRR, no murmur Respiratory: no wheezes, no rales Gastrointestinal: soft, non-tender, non-distended, normal bowel sounds Extremities: no cyanosis, no edema Neurological: cranial nerve grossly intact, no focal deficits Hosp A/P (1) Sepsis with acute organ dysfunction Code(s): A41.9 - SEPSIS, UNSPECIFIED ORGANISM; R65.20 - SEVERE SEPSIS WITHOUT SEPTIC SHOCK Status: Acute Qualifiers: Sepsis type: methicillin resistant Staphylococcus aureus Severe sepsis acute organ dysfunction type: disseminated intravascular coagulopathy Severe sepsis shock status: without septic shock Qualified Code(s): A41.02 - Sepsis due to Methicillin resistant Staphylococcus aureus; R65.20 - Severe sepsis without septic shock; D65 - Disseminated intravascular coagulation [defibr ination syndrome] (2) Bacteremia due to methicillin resistant Staphylococcus aureus Code(s): R78.81 - BACTEREMIA Status: Acute (3) DKA, type 1 Code(s): E10.10 - TYPE 1 DIABETES MELLITUS WITH KETOACIDOSIS WITHOUT COMA Status: Resolved Qualifiers: Diabetes mellitus complication detail: without coma Qualified Code(s): E10.10 - Type 1 diabetes mellitus with ketoacidosis without coma (4) Atrial fibrillation with rapid ventricular response Code(s): I48.91 - UNSPECIFIED ATRIAL FIBRILLATION Status: Acute (5) Alcoholic cirrhosis of liver Code(s): K70.30 - ALCOHOLIC CIRRHOSIS OF LIVER WITHOUT ASCITES Status: Chronic Qualifiers: Ascites presence: without ascites Qualified Code(s): K70.30 - Alcoholic cirrhosis of liver without ascites (6) Anemia, macrocytic Code(s): D53.9 - NUTRITIONAL ANEMIA, UNSPECIFIED Status: Chronic (7) Anxiety and depression Code(s): F41.9 - ANXIETY DISORDER, UNSPECIFIED; F32.9 - MAJOR DEPRESSIVE DISORDER, SINGLE EPISODE, UNSPECIFIED Status: Chronic (8) CAD (coronary artery disease) Code(s): I25.10 - ATHSCL HEART DISEASE OF [place] CORONARY ARTERY W/O ANG PCTRS Status: Chronic Qualifiers: Coronary Disease-Associated Artery/Lesion type: [place] artery [place] vs. transplanted heart: [place] heart Associated angina: without angina Qualified Code(s): I25.10 - Atherosclerotic heart disease of [place] coronary artery without angina pectoris (9) COPD (chronic obstructive pulmonary disease) Status: Chronic Qualifiers: COPD type: unspecified COPD Qualified Code(s): J44.9 - Chronic obstructive pulmonary disease, unspecified (10) DM type 2 (diabetes mellitus, type 2) Status: Chronic Qualifiers: Diabetes mellitus [employer] insulin use: with [employer] use Diabetes mellitus complication status: with hyperglycemia Qualified Code(s): E11.65 - Type 2 diabetes mellitus with hyperglycemia; 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 (11) Dyslipidemia Code(s): E78.5 - HYPERLIPIDEMIA, UNSPECIFIED Status: Chronic (12) GERD (gastroesophageal reflux disease) Code(s): K21.9 - GASTRO-ESOPHAGEAL REFLUX DISEASE WITHOUT ESOPHAGITIS Status: Chronic Qualifiers: Esophagitis presence: esophagitis presence not specified Qualified Code(s): K21.9 - Gastro-esophageal reflux disease without esophagitis (13) HTN (hypertension) Code(s): I10 - ESSENTIAL (PRIMARY) HYPERTENSION Status: Chronic Qualifiers: Hypertension type: essential hypertension Qualified Code(s): I10 - Essential (primary) hypertension (14) Hypoalbuminemia due to protein-calorie malnutrition Code(s): E46 - UNSPECIFIED PROTEIN-CALORIE MALNUTRITION Status: Chronic (15) Hypothyroidism Code(s): E03.9 - HYPOTHYROIDISM, UNSPECIFIED Status: Chronic Qualifiers: Hypothyroidism type: unspecified Qualified Code(s): E03.9 - Hypothyroidism, unspecified (16) PVD (peripheral vascular disease) Code(s): I73.9 - PERIPHERAL VASCULAR DISEASE, UNSPECIFIED Status: Chronic (17) Thrombocytopenia Code(s): D69.6 - THROMBOCYTOPENIA, UNSPECIFIED Status: Chronic (18) Tobacco abuse Code(s): Z72.0 - TOBACCO USE Status: Chronic (19) h/o tavr Status: Chronic (20) Acute metabolic encephalopathy Code(s): G93.41 - METABOLIC ENCEPHALOPATHY Status: Acute (21) Acute kidney injury Code(s): N17.9 - ACUTE KIDNEY FAILURE, UNSPECIFIED Status: Acute (22) CVA (cerebral vascular accident) Code(s): I63.9 - CEREBRAL INFARCTION, UNSPECIFIED Status: Acute Qualifiers: CVA mechanism: other Qualified Code(s): I63.89 - Other cerebral infarction - Plan septic embolism to brain with left frontal area infarct and multiple smaller ones including cerebellar has severe mrsa bacteremia is on vanc and ceftriaxone prior h/o mrsa bacteremia, 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 has DIC due to mrsa bacteremia/sepsis with very low platelets in addition to h/o alc cirrhosis dka has resolved, will increase lantus and escalate as needed danielle with met acidosis likely due to sepsis/prerenal alb levels of 2.3 likely due to poor nutrition plus cirrhosis afib is rate controlled, on amio drip, will hold off BB due to underlying copd and ams to avoid resp failure is npo except meds from today appreciate help from , and /Eloisa further imaging when he is more stable transthoracic echo does not report obvious thrombus/veg, will need [place], await cardio to evaluate him. EKG does not show elongated VIDA or av block Palliative care was able to reach out to son and he is a DNAR from 06/13/20. poor prognosis
--- NOTE | 2020-06-14 16:23 | PDOC.NEUPN ---
- Subjective Encounter Date: 06/14/20 Subjective: Mr. Cruz somnolent today and does not open eyes or follow commands. Multiple acute embolic infarcts in the setting of bacteremia.Most likely septic emboli. - Objective Vital Signs & Weight: Vital Signs (12 hours) Temp Pulse Pulse Pulse Resp BP BP 06/14/20 13:41 98.2 F 06/14/20 13:24 88 24 H 06/14/20 13:11 100.1 F H 94 27 H 122/65 06/14/20 13:00 99.1 F 06/14/20 09:30 94 95 121/58 L 06/14/20 09:26 92 121/58 L 06/14/20 08:43 06/14/20 08:42 92 25 H 06/14/20 08:00 97.9 F 06/14/20 07:57 BP Pulse Ox Pulse Ox Pulse Ox 06/14/20 13:41 06/14/20 13:24 98 06/14/20 13:11 06/14/20 13:00 06/14/20 09:30 99/82 98 99 06/14/20 09:26 06/14/20 08:43 99 06/14/20 08:42 99 06/14/20 08:00 06/14/20 07:57 97 Weight Admit Weight 194 lb Weight 194 lb 1.6 oz Most Recent Monitor Data Heart Rate from ECG 83 NIBP 136/58 NIBP BP-Mean 84 Respiration from ECG 23 SpO2 95 I&O: 06/13/20 06/14/20 06/15/20 06:59 06:59 06:59 Intake Total 4352 2050.5 50 Output Total 1370 1715 570 Balance 2982 335.5 -520 Result Diagrams: 06/14/20 03:50 06/14/20 03:50 Additional Labs: Accuchecks 06/13/20 23:44 POC Glucose 239 H Radiology Reviewed by me: Yes EKG Reviewed by me: Yes ROS - Review of Systems ROS unobtainable: due to mental status - Medication Medications: Active Medications Generic Name Dose Route Start Last Admin Trade Name Freq PRN Reason Stop Dose Admin Acetaminophen 650 mg 06/12/20 02:33 06/14/20 13:11 Acetaminophen 650 Mg Suppository NC 650 mg Q6H PRN Administration Fever Albuterol/Ipratropium 3 ml 02/21/21 01:00 06/14/20 13:24 Ipratropium/Albuterol Sulfate 3 Ml Neb NEB 3 ml [id number] MICHAELA Administration Aspirin 81 mg 06/14/20 09:00 06/14/20 09:32 Aspirin Chewable 81 Mg Tab PO 81 mg DAILY MICHAELA Administration Bupropion HCl 150 mg 06/12/20 09:00 06/14/20 09:38 Bupropion 150 Mg Sr Tab PO 150 mg BID MICHAELA Administration Carvedilol 12.5 mg 06/12/20 21:00 06/14/20 09:31 Carvedilol 25 Mg Tab PO 12.5 mg BID MICHAELA Administration Gabapentin 600 mg 06/12/20 09:00 06/14/20 09:32 Gabapentin 300 Mg Cap PO 600 mg BID MICHAELA Administration Ceftriaxone Sodium 1 gm/ 100 mls @ 200 mls/hr 06/11/20 23:00 06/13/20 23:29 Sodium Chloride IVPB 100 mls Q24HR MICHAELA Administration Amiodarone HCl 450 mg/ 259 mls @ 0 mls/hr 06/12/20 05:00 06/14/20 12:57 Miscellaneous Medication 1 IVPB 259 mls each/ Dextrose/Water INF MICHAELA Administration Protocol As Directed Vancomycin HCl 1 gm/ Device 200 mls @ 200 mls/hr 06/12/20 09:00 06/14/20 09:30 IVPB 200 mls Q12HR MICHAELA Administration Sodium Bicarbonate 75 meq/ 1,075 mls @ 50 mls/hr 06/13/20 14:15 06/14/20 12:57 Sodium Chloride IV 1,075 mls .[id number] MICHAELA Administration Insulin Glargine 30 units/ 0.3 mls @ 0 mls/hr 06/14/20 09:00 06/14/20 09:31 Miscellaneous Medication SC 0.3 mls BID MICHAELA Administration Insulin Human Lispro 0 units 06/12/20 10:20 06/14/20 10:50 Humalog 300 Units/3 Ml Vial SC 6 unit .AGGRESSIVE SLIDING PRN Administration Aggressive Correctional Scale Nicotine 21 mg 06/11/20 23:00 06/13/20 23:55 Nicotine 21 Mg Patch TD 21 mg Q24HR MICHAELA Administration Pantoprazole Sodium 40 mg 06/14/20 09:00 06/14/20 09:32 Pantoprazole 40 Mg Tab PO 40 mg DAILY MICHAELA Administration Sodium Chloride 10 ml 06/12/20 09:00 06/14/20 09:33 Flush - Normal Saline 10 Ml Syringe IVF 10 ml Q12HR MICHAELA Administration Trazodone HCl 100 mg 06/12/20 21:00 06/13/20 23:19 Trazodone Hcl 50 Mg Tab PO Not Given HS MICHAELA - Exam General Appearance: awake alert Eye: PERRL ENT: normocephalic atraumatic Neck: supple Respiratory: CTAB Cardiovascular: no murmur Gastrointestinal: soft Extremities: no cyanosis Skin: normal turgor Neurological: no new deficit Musculoskeletal: no muscle wasting PSYCH: somnolent, lethargic Results - Labs Result Diagrams: 06/14/20 03:50 06/14/20 03:50 Lab results: WBC 7.4 thou/uL (4.8-10.8) 06/14/20 03:50 Hgb 9.7 g/dL (14.0-18.0) L 06/14/20 03:50 Hct 28.1 % (42.0-52.0) L 06/14/20 03:50 MCV 98.8 fL (78.0-98.0) H 06/14/20 03:50 Plt Count 13 thou/uL (130-400) L* 06/14/20 03:50 Band Neuts % (Manual) 30 % (5-11) H 06/14/20 03:50 Sodium 138 mmol/L (136-145) 06/14/20 03:50 Potassium 3.8 mmol/L (3.5-5.1) 06/14/20 03:50 Chloride 115 mmol/L (98-107) H 06/14/20 03:50 Carbon Dioxide 17 mmol/L (23-31) L 06/14/20 03:50 BUN 62 mg/dL (8.4-25.7) H 06/14/20 03:50 Creatinine 1.27 mg/dL (0.7-1.3) 06/14/20 03:50 Glucose 250 mg/dL (83-110) H 06/14/20 03:50 Calcium 7.1 mg/dL (7.8-10.44) L 06/14/20 03:50 Total Bilirubin 1.4 mg/dL (0.2-1.2) H 06/14/20 03:50 AST 45 U/L (5-34) H 06/14/20 03:50 ALT 42 U/L (8-55) 06/14/20 03:50 Alkaline Phosphatase 111 U/L (40-110) H 06/14/20 03:50 CK-MB (CK-2) 6.8 ng/mL (0-6.6) H* 06/11/20 19:49 Troponin I 0.778 ng/mL (< 0.028) H* 06/12/20 06:31 B-Natriuretic Peptide 1282.0 pg/mL (0-100) H 06/12/20 08:12 Serum Total Protein 4.1 g/dL (5.8-8.1) L 06/14/20 03:50 Albumin 1.7 g/dL (3.4-4.8) L 06/14/20 03:50 Lipase 21 U/L (8-78) 06/11/20 19:49 Urine Ketones Negative mg/dL (Negative) 06/11/20 20:10 Urine Blood 2+ (Negative) A 06/11/20 20:10 Urine Nitrite Negative (Negative) 06/11/20 20:10 Ur Leukocyte Esterase Negative Nancy/uL (Negative) 06/11/20 20:10 Urine RBC Greater than 50 HPF (0-3) A 06/11/20 20:10 Urine WBC 0-3 HPF (0-3) 06/11/20 20:10 Ur Squamous Epith Cells 0-3 HPF (0-3) 06/11/20 20:10 Urine Bacteria None Seen HPF (None Seen) 06/11/20 20:10 - Radiology Interpretation MRI - head Additional Comment: MRI Brain consistent with multiple acute infarcts in the cerebrum and cerebellar regions PN A/P (1) CVA (cerebral vascular accident) Code(s): I63.9 - CEREBRAL INFARCTION, UNSPECIFIED Status: Acute Qualifiers: CVA mechanism: other Qualified Code(s): I63.89 - Other cerebral infarction (2) Acute kidney injury Code(s): N17.9 - ACUTE KIDNEY FAILURE, UNSPECIFIED Status: Acute (3) DKA, type 1 Code(s): E10.10 - TYPE 1 DIABETES MELLITUS WITH KETOACIDOSIS WITHOUT COMA Status: Resolved Qualifiers: Diabetes mellitus complication detail: without coma Qualified Code(s): E10.10 - Type 1 diabetes mellitus with ketoacidosis without coma (4) Acute blood loss anemia Code(s): D62 - ACUTE POSTHEMORRHAGIC ANEMIA Status: Acute (5) Acute metabolic encephalopathy Code(s): G93.41 - METABOLIC ENCEPHALOPATHY Status: Acute (6) Atrial fibrillation with rapid ventricular response Code(s): I48.91 - UNSPECIFIED ATRIAL FIBRILLATION Status: Acute (7) Bacteremia due to methicillin resistant Staphylococcus aureus Code(s): R78.81 - BACTEREMIA Status: Acute (8) Dehydration Code(s): E86.0 - DEHYDRATION Status: Acute (9) History of aortic valve replacement Code(s): Z95.2 - PRESENCE OF PROSTHETIC HEART VALVE Status: Acute (10) Hypokalemia Code(s): E87.6 - HYPOKALEMIA Status: Acute (11) Hypotension Status: Acute (12) Liane-Goddard tear Code(s): K22.6 - GASTRO-ESOPHAGEAL LACERATION-HEMORRHAGE SYNDROME Status: Acute - Plan Daily Plan: PT/OT, speech therapy, DVT proph w/SCDs Mr. Cruz consulted for altered mental status. AMS seems multifactorial due to metabolic- DKA, infectious - MRSA bacteremia and intracranial pathology since MRI Brain is positive for acute infarctions , most likely septic emboli due to MRSA bacteremia. MRI Brain positive for acute infarctions. 2D Echo showed LVEF 50-55%. Need [place] but await cardiology input since prognosis is poor in the setting of severe thrombocytopenia and sepsis. Continue Telemetry to monitor for arrythmias. Neurochecks every 4 hours. Permissive BP control at this time. Strict control of blood glucose. NPO till cleared by speech. PT/OT/Speech DVT prophylaxis with SCD's. Palliative care consult Avoid antiplatelets and anticoagulants due to thrombocytopenia. Platelet count 13. Continue medical management per primary team. Plan didcussed with the nursing staff.
--- NOTE | 2020-06-14 19:45 | CT ---
CT Brain WO Con: 06/14/2020 7:30 PM CLINICAL HISTORY: 75-year-old male with left-sided facial droop and aphasia. IMAGING TECHNIQUE: Multiple CT images were obtained of the brain without IV contrast. COMPARISON: MR the brain without contrast dated June [address] the brain dated June 122020. FINDINGS: BRAIN: Evidence of acute infarct: There is evolutionary change involving the left frontal lobe cortical and subcortical infarct with worsening vasogenic edema. The infarct now measures 3.6 x 3 cm appears to measure 3.0 x 2.3 cm. There is a small hypodensity now present within the right cerebellar hemisphere on image 16 series 2 corresponding to a small embolic infarct seen previously on the prior MR examination now measuring 5 mm. The additional small embolic infarcts seen scattered within both cere bral and cerebellar hemispheres are not as well detailed on the current CT evaluation. Evidence of chronic ischemic change:Mild chronic small vessel white matter ischemic change. Evidence of intracranial hemorrhage: None. Evidence of brain volume loss:There is diffuse cerebral atrophy. Evidence of midline shift: Third ventricle and septum pellucidum are midline. Ventricles: Normal. No hydrocephalus. SKULL: Intact. VISUALIZED PARANASAL SINUSES: Clear. MASTOID AIR CELLS: Clear. EXTRACRANIAL SOFT TISSUES: Normal. IMPRESSION: Evolutionary changes of the scattered embolic infarcts involving both cerebral hemispheres and cerebe llum. The largest most evident infarct on CT in the left frontal lobe is slightly more pronounced in size likely corresponding worsening vasogenic edema. No hemorrhagic conversion is evident. Small e mbolic infarction involving the right cerebellar hemisphere is now evident by CT measuring approximately 5 mm. The numerous additional small embolic infarctions are not as well seen on the cur rent CT as on the recent comparison MR examination.
[2020-06-14] MEDS: traZODone HCl 50 MG TAB PO SCH (21:13)
[2020-06-15 03:58] LABS: Hemoglobin 10.2 g/dL (14.0-18.0); Mean Corpuscular HGB CONC 33.3 g/dL (32.0-36.0); Mean Corpuscular Hemoglobin 32.4 pg (27.0-31.0); Mean Corpuscular Volume 97.4 fL (78.0-98.0); Mean Platelet Volume 15.7 fL (7.4-10.4); Platelet Count 16 thou/uL (130-400); RBC Distribution Width 15.6 % (11.5-14.5); Red Blood Cell (RBC) Count 3.13 mill/uL (4.70-6.10); White Blood Cell (WBC) Count 7.3 thou/uL (4.8-10.8)
[2020-06-15 04:10] LABS: Band 30 % (5-11); Lymphocytes 10 % (21-51); MDiff Complete? YES; Monocytes 6 % (0-10); Neutrophil 54 % (42-75); Platelet Morphology Comment Appears Decreased
[2020-06-15 04:33] LABS: ALT (SGPT) 72 U/L (8-55); AST (SGOT) 68 U/L (5-34); Albumin 1.8 g/dL (3.4-4.8); Alkaline Phosphatase 220 U/L (40-110); Anion Gap 9 mmol/L (10-20); BUN (Urea Nitrogen) 51 mg/dL (8.4-25.7); Bilirubin, Total 1.9 mg/dL (0.2-1.2); Calc. Creatinine Clearance 74 mL/min (70-130); Calcium 7.3 mg/dL (7.8-10.44); Carbon Dioxide 21 mmol/L (23-31); Chloride 117 mmol/L (98-107); Globulin 2.8 g/dL (2.4-3.5); Glucose 238 mg/dL (83-110); Potassium 3.7 mmol/L (3.5-5.1); Protein, Total 4.6 g/dL (5.8-8.1); Sodium 143 mmol/L (136-145)
[2020-06-15] MEDS: Amiodarone 450 MG, Admixture Fee 1 EACH in Dextrose 5% in Water 250 ML IVPB SCH (04:35)
[2020-06-15] MEDS: Nicotine 21 MG PATCH TD SCH ×2 (04:38→21:19)
[2020-06-15] MEDS: Acetaminophen 650 MG Suppository PR PRN (04:58)
[2020-06-15] MEDS: Vancomycin 1 GM in Premix Bag 1 BAG IVPB SCH ×2 (09:58→21:11)
[2020-06-15] MEDS: Carvedilol 25 MG TAB PO SCH ×2 (09:58→21:20)
[2020-06-15] MEDS: Gabapentin 300 MG CAP PO SCH (09:59)
[2020-06-15] MEDS: Insulin Glargine 30 UNITS in Pre-Filled Syringe 1 EACH SC SCH ×2 (10:00→21:43)
[2020-06-15] MEDS: Bupropion 150 MG SR TAB PO SCH ×2 (10:00→21:21)
[2020-06-15] MEDS ORDERED: Pantoprazole 40 MG GRANULES PACKET PO SCH (10:15)
[2020-06-15] MEDS: Sodium Bicarbonate 75 MEQ in Sodium Chloride 0.45% 1,000 ML IV SCH (11:11)
[2020-06-15] MEDS ORDERED: PHARMACY TO DOSE VANCOMYCIN IVPB PRN (11:51)
[2020-06-15] MEDS: HumaLOG 300 UNITS/3 ML VIAL SC PRN ×3 (11:57→21:44)
--- NOTE | 2020-06-15 12:42 | PDOC.NEUPN ---
- Subjective Encounter Date: 06/15/20 Subjective: Mr. Cruz mental state has been improved significantly since last evening. He is alert and oriented to person and place and talking in 5 word sentences. He is asking for food.. - Objective Vital Signs & Weight: Vital Signs (12 hours) Temp Pulse Pulse Pulse Resp BP BP 06/15/20 09:52 97 71 127/78 107/53 L 06/15/20 08:08 85 26 H 06/15/20 04:00 99.9 F H Pulse Ox Pulse Ox Pulse Ox 06/15/20 09:52 98 97 06/15/20 08:08 100 06/15/20 04:00 Weight Admit Weight 194 lb Weight 194 lb 1.6 oz Most Recent Monitor Data Heart Rate from ECG 85 NIBP 136/62 NIBP BP-Mean 86 Respiration from ECG 28 SpO2 100 I&O: 06/14/20 06/15/20 06/16/20 06:59 06:59 06:59 Intake Total 2050.5 1870 Output Total 1715 2465 Balance 335.5 -595 Result Diagrams: 06/15/20 03:30 06/15/20 03:30 Additional Labs: Accuchecks 06/15/20 06/15/20 06/14/20 11:49 05:02 21:16 POC Glucose 220 H 169 H 234 H 06/14/20 06/14/20 16:40 10:44 POC Glucose 282 H 273 H Radiology Reviewed by me: Yes EKG Reviewed by me: Yes ROS - Review of Systems Constitutional: denies: fever, chills, sweats, weakness, malaise, other Gastrointestinal: denies: nausea, vomiting, abdominal pain, diarrhea, constipation, melena, hematochezia, other Genitourinary: denies: dysuria, frequency, incontinence, hematuria, retention, other Musculoskeletal: denies: neck pain, shoulder pain, arm pain, back pain, hand pain, leg pain, foot pain, other Skin: denies: rash, lesions, anu, bruising, other Neurological: reports: weakness, numbness - Medication Medications: Active Medications Generic Name Dose Route Start Last Admin Trade Name Freq PRN Reason Stop Dose Admin Acetaminophen 650 mg 06/12/20 02:33 06/15/20 04:58 Acetaminophen 650 Mg Suppository [place] 650 mg Q6H PRN Administration Fever Albuterol/Ipratropium 3 ml 06/12/20 01:00 06/15/20 08:08 Ipratropium/Albuterol Sulfate 3 Ml Neb NEB 3 ml [id number] MICHAELA Administration Bupropion HCl 150 mg 06/12/20 09:00 06/15/20 10:00 Bupropion 150 Mg Sr Tab PO 150 mg BID MICHAELA Administration Carvedilol 12.5 mg 06/12/20 21:00 06/15/20 09:58 Carvedilol 25 Mg Tab PO 12.5 mg BID MICHAELA Administration Gabapentin 600 mg 06/12/20 09:00 06/15/20 09:59 Gabapentin 300 Mg Cap PO 600 mg BID MICHAELA Administration Amiodarone HCl 450 mg/ 259 mls @ 0 mls/hr 06/12/20 05:00 06/15/20 04:35 Miscellaneous Medication 1 IVPB 259 mls each/ Dextrose/Water INF MICHAELA Administration Protocol As Directed Vancomycin HCl 1 gm/ Device 200 mls @ 200 mls/hr 06/12/20 09:00 06/15/20 09:58 IVPB 200 mls Q12HR MICHAELA Administration Sodium Bicarbonate 75 meq/ 1,075 mls @ 50 mls/hr 06/13/20 14:15 06/15/20 11:11 Sodium Chloride IV 1,075 mls .[id number] MICHAELA Administration Insulin Glargine 30 units/ 0.3 mls @ 0 mls/hr 06/14/20 09:00 06/15/20 10:00 Miscellaneous Medication SC 0.3 mls BID MICHAELA Administration Insulin Human Lispro 0 units 06/12/20 10:20 06/15/20 11:57 Humalog 300 Units/3 Ml Vial SC 6 unit .AGGRESSIVE SLIDING PRN Administration Aggressive Correctional Scale Nicotine 21 mg 06/11/20 23:00 06/15/20 04:38 Nicotine 21 Mg Patch TD 21 mg Q24HR MICHAELA Administration Pantoprazole Sodium 40 mg 06/15/20 10:15 06/15/20 11:13 Pantoprazole 40 Mg Granules Packet PO 06/15/20 13:00 40 mg NOW MICHAELA Administration Sodium Chloride 10 ml 06/12/20 09:00 06/15/20 10:01 Flush - Normal Saline 10 Ml Syringe IVF 10 ml Q12HR MICHAELA Administration Trazodone HCl 100 mg 06/12/20 21:00 06/14/20 21:13 Trazodone Hcl 50 Mg Tab PO Not Given HS MICHAELA - Exam General Appearance: awake alert Eye: PERRL ENT: normocephalic atraumatic Neck: supple Respiratory: CTAB Cardiovascular: RRR Gastrointestinal: soft Extremities: no cyanosis Skin: normal turgor Neurological: no new deficit Neurological - other findings: Left hemiparesis spontaneously moving his right side Musculoskeletal: normal tone, no muscle wasting PSYCH: normal affect, normal behavior, oriented to person, oriented to place Results - Labs Result Diagrams: 06/15/20 03:30 06/15/20 03:30 Lab results: WBC 7.3 thou/uL (4.8-10.8) 06/15/20 03:30 Hgb 10.2 g/dL (14.0-18.0) L 06/15/20 03:30 Hct 30.5 % (42.0-52.0) L 06/15/20 03:30 MCV 97.4 fL (78.0-98.0) 06/15/20 03:30 Plt Count 16 thou/uL (130-400) L* 06/15/20 03:30 Band Neuts % (Manual) 30 % (5-11) H 06/15/20 03:30 Sodium 143 mmol/L (136-145) 06/15/20 03:30 Potassium 3.7 mmol/L (3.5-5.1) 06/15/20 03:30 Chloride 117 mmol/L (98-107) H 06/15/20 03:30 Carbon Dioxide 21 mmol/L (23-31) L 06/15/20 03:30 BUN 51 mg/dL (8.4-25.7) H 06/15/20 03:30 Creatinine 1.07 mg/dL (0.7-1.3) 06/15/20 03:30 Glucose 238 mg/dL (83-110) H 06/15/20 03:30 Calcium 7.3 mg/dL (7.8-10.44) L 06/15/20 03:30 Total Bilirubin 1.9 mg/dL (0.2-1.2) H 06/15/20 03:30 AST 68 U/L (5-34) H 06/15/20 03:30 ALT 72 U/L (8-55) H 06/15/20 03:30 Alkaline Phosphatase 220 U/L (40-110) H 06/15/20 03:30 CK-MB (CK-2) 6.8 ng/mL (0-6.6) H* 06/11/20 19:49 Troponin I 0.778 ng/mL (< 0.028) H* 06/12/20 06:31 B-Natriuretic Peptide 1282.0 pg/mL (0-100) H 06/12/20 08:12 Serum Total Protein 4.6 g/dL (5.8-8.1) L 06/15/20 03:30 Albumin 1.8 g/dL (3.4-4.8) L 06/15/20 03:30 Lipase 21 U/L (8-78) 06/11/20 19:49 Urine Ketones Negative mg/dL (Negative) 06/11/20 20:10 Urine Blood 2+ (Negative) A 06/11/20 20:10 Urine Nitrite Negative (Negative) 06/11/20 20:10 Ur Leukocyte Esterase Negative Nancy/uL (Negative) 06/11/20 20:10 Urine RBC Greater than 50 HPF (0-3) A 06/11/20 20:10 Urine WBC 0-3 HPF (0-3) 06/11/20 20:10 Ur Squamous Epith Cells 0-3 HPF (0-3) 06/11/20 20:10 Urine Bacteria None Seen HPF (None Seen) 06/11/20 20:10 - Radiology Interpretation CT scan - head Additional Comment: Head CT repeated yesterday showed stable findings with evidence of multiple infarcts PN A/P (1) CVA (cerebral vascular accident) Code(s): I63.9 - CEREBRAL INFARCTION, UNSPECIFIED Status: Acute Qualifiers: CVA mechanism: other Qualified Code(s): I63.89 - Other cerebral infarction (2) Acute kidney injury Code(s): N17.9 - ACUTE KIDNEY FAILURE, UNSPECIFIED Status: Acute (3) DKA, type 1 Code(s): E10.10 - TYPE 1 DIABETES MELLITUS WITH KETOACIDOSIS WITHOUT COMA Status: Resolved Qualifiers: Diabetes mellitus complication detail: without coma Qualified Code(s): E10.10 - Type 1 diabetes mellitus with ketoacidosis without coma (4) Acute blood loss anemia Code(s): D62 - ACUTE POSTHEMORRHAGIC ANEMIA Status: Acute (5) Acute metabolic encephalopathy Code(s): G93.41 - METABOLIC ENCEPHALOPATHY Status: Acute (6) Atrial fibrillation with rapid ventricular response Code(s): I48.91 - UNSPECIFIED ATRIAL FIBRILLATION Status: Acute (7) Bacteremia due to methicillin resistant Staphylococcus aureus Code(s): R78.81 - BACTEREMIA Status: Acute (8) Dehydration Code(s): E86.0 - DEHYDRATION Status: Acute (9) History of aortic valve replacement Code(s): Z95.2 - PRESENCE OF PROSTHETIC HEART VALVE Status: Acute (10) Hypokalemia Code(s): E87.6 - HYPOKALEMIA Status: Acute (11) Hypotension Status: Acute (12) Liane-Goddard tear Code(s): K22.6 - GASTRO-ESOPHAGEAL LACERATION-HEMORRHAGE SYNDROME Status: Acute - Plan Daily Plan: PT/OT, speech therapy, DVT proph w/SCDs Mr. Cruz consulted for altered mental status. AMS seems multifactorial due to metabolic- DKA, infectious - MRSA bacteremia and intracranial pathology since MRI Brain is positive for acute infarctions , most likely septic emboli due to MRSA bacteremia. Mr. Cruz condition has been improved significantly since last evening and is now alert and oriented x2 and following simple commands. He did communicate that he is extremely hungry. MRI Brain positive for acute infarctions. 2D Echo showed LVEF 50-55%. Need [place] but await cardiology input since prognosis is guarded in the setting of severe thrombocytopenia and sepsis. He continues to have thrombocytopenia with platelets 16 today Continue Telemetry to monitor for arrythmias. Neurochecks every 4 hours. EEG reviewed which was negative for seizure activity Permissive BP control at this time. Strict control of blood glucose. Patient cleared by speech for pured diet. PT/OT/Speech DVT prophylaxis with SCD's. Palliative care consult Avoid antiplatelets and anticoagulants due to thrombocytopenia. Platelet count 16. Continue medical management per primary team. Plan discussed in detail with the nursing staff, patient and the primary attending Dr. Marte
--- NOTE | 2020-06-15 13:50 | PRG ---
DATE OF SERVICE: 06/15/2020 SUBJECTIVE: John Cruz is clinically the same. He wakes up and converses. OBJECTIVE: VITAL SIGNS: Blood pressure 136/62, heart rate 85, respiratory rates in the teens to low 20s. LUNGS: Clear. HEART: Regular rhythm. ABDOMEN: Soft. LABORATORY DATA: White count 7.3, hemoglobin 10.2, platelets 16,000. Sodium 143, potassium 3.7, chloride 117, bicarb 21, BUN 51, creatinine 1.07. IMPRESSION: Embolic cerebrovascular accident involving both hemispheres. It is highly likely that he has endocarditis. From an airway and pulmonary standpoint, he is stable. He will obviously need long-term IV antibiotics and long-term care. Other issues include cirrhosis, thrombocytopenia, anemia of chronic disease, coronary artery disease, diabetes, and a normal anion gap metabolic acidosis. It is more likely related to renal insufficiency on presentation and diabetic ketoacidosis in my opinion. He has developed a hyperchloremic acidosis that is mild with volume resuscitation. His diabetes is better controlled given that his presenting glucoses were over 500. He is stable to move to a neurological unit or even to a rehab unit, but the issues that need to be addressed include mainly duration of IV antibiotics and whether or not antibiotic suppression will be needed after that. Given that he has a mechanical valve. Job ID: [id number]
--- NOTE | 2020-06-15 14:13 | PDOC.HOSPP ---
- Subjective Encounter Date: 06/15/20 Encounter Time: 08:00 Subjective: awake, responds well to verbal stimuli moves his right side extr well, is weak on left wants something to eat and is thirsty no sob or palp - Objective Vital Signs & Weight: Vital Signs (12 hours) Temp Pulse Pulse Pulse Resp BP BP 06/15/20 13:34 78 24 H 06/15/20 12:00 99.3 F 06/15/20 09:52 97 71 127/78 107/53 L 06/15/20 08:08 85 26 H 06/15/20 08:00 98.9 F 06/15/20 04:00 99.9 F H Pulse Ox Pulse Ox Pulse Ox 06/15/20 13:34 100 06/15/20 12:00 06/15/20 09:52 98 97 06/15/20 08:08 100 06/15/20 08:00 06/15/20 04:00 Weight Admit Weight 194 lb Weight 194 lb 1.6 oz Most Recent Monitor Data Heart Rate from ECG 86 NIBP 111/55 NIBP BP-Mean 73 Respiration from ECG 30 SpO2 98 I&O: 06/14/20 06/15/20 06/16/20 06:59 06:59 06:59 Intake Total 2050.5 1870 330 Output Total 1715 2465 405 Balance 335.5 -595 -75 Result Diagrams: 06/15/20 03:30 06/15/20 03:30 Additional Labs: Accuchecks 06/15/20 06/15/20 06/14/20 11:49 05:02 21:16 POC Glucose 220 H 169 H 234 H 06/14/20 06/14/20 16:40 10:44 POC Glucose 282 H 273 H Hospitalist ROS - Medication Medications: Active Medications Generic Name Dose Route Start Last Admin Trade Name Freq PRN Reason Stop Dose Admin Acetaminophen 650 mg 06/12/20 02:33 06/15/20 04:58 Acetaminophen 650 Mg Suppository [place] 650 mg Q6H PRN Administration Fever Albuterol/Ipratropium 3 ml 06/12/20 01:00 06/15/20 13:34 Ipratropium/Albuterol Sulfate 3 Ml Neb NEB 3 ml [id number] MICHAELA Administration Bupropion HCl 150 mg 06/12/20 09:00 06/15/20 10:00 Bupropion 150 Mg Sr Tab PO 150 mg BID MICHAELA Administration Carvedilol 12.5 mg 06/12/20 21:00 06/15/20 09:58 Carvedilol 25 Mg Tab PO 12.5 mg BID MICHAELA Administration Amiodarone HCl 450 mg/ 259 mls @ 0 mls/hr 06/12/20 05:00 06/15/20 04:35 Miscellaneous Medication 1 IVPB 259 mls each/ Dextrose/Water INF MICHAELA Administration Protocol As Directed Vancomycin HCl 1 gm/ Device 200 mls @ 200 mls/hr 06/12/20 09:00 06/15/20 09:58 IVPB 200 mls Q12HR MICHAELA Administration Sodium Bicarbonate 75 meq/ 1,075 mls @ 50 mls/hr 06/13/20 14:15 06/15/20 11:11 Sodium Chloride IV 1,075 mls .[id number] MICHAELA Administration Insulin Glargine 30 units/ 0.3 mls @ 0 mls/hr 06/14/20 09:00 06/15/20 10:00 Miscellaneous Medication SC 0.3 mls BID MICHAELA Administration Insulin Human Lispro 0 units 06/12/20 10:20 06/15/20 11:57 Humalog 300 Units/3 Ml Vial SC 6 unit .AGGRESSIVE SLIDING PRN Administration Aggressive Correctional Scale Nicotine 21 mg 06/11/20 23:00 06/15/20 04:38 Nicotine 21 Mg Patch TD 21 mg Q24HR MICHAELA Administration Sodium Chloride 10 ml 06/12/20 09:00 06/15/20 10:01 Flush - Normal Saline 10 Ml Syringe IVF 10 ml Q12HR MICHAELA Administration Trazodone HCl 100 mg 06/12/20 21:00 06/14/20 21:13 Trazodone Hcl 50 Mg Tab PO Not Given HS [facility] Hospitalist Exam Vitals: Vital Signs (12 hours) Temp Pulse Pulse Pulse Resp BP BP 06/15/20 13:34 78 24 H 06/15/20 12:00 99.3 F 06/15/20 09:52 97 71 127/78 107/53 L 06/15/20 08:08 85 26 H 06/15/20 08:00 98.9 F 06/15/20 04:00 99.9 F H Pulse Ox Pulse Ox Pulse Ox 06/15/20 13:34 100 06/15/20 12:00 06/15/20 09:52 98 97 06/15/20 08:08 100 06/15/20 08:00 06/15/20 04:00 Weight Admit Weight 194 lb Weight 194 lb 1.6 oz Most Recent Monitor Data Heart Rate from ECG 86 NIBP 111/55 NIBP BP-Mean 73 Respiration from ECG 30 SpO2 98 General Appearance: awake alert Eye: PERRL, anicteric sclera ENT: no oropharyngeal lesions, dry oral mucosa Neck: supple, no JVD Heart: RRR, no murmur Respiratory: no wheezes, no rales Gastrointestinal: soft, non-tender, non-distended, normal bowel sounds Extremities: no cyanosis, no edema Neurological - other findings: left hemiparesis Hosp A/P (1) Sepsis with acute organ dysfunction Code(s): A41.9 - SEPSIS, UNSPECIFIED ORGANISM; R65.20 - SEVERE SEPSIS WITHOUT SEPTIC SHOCK Status: Acute Qualifiers: Sepsis type: methicillin resistant Staphylococcus aureus Severe sepsis acute organ dysfunction type: disseminated intravascular coagulopathy Severe sepsis shock status: without septic shock Qualified Code(s): A41.02 - Sepsis due to Methicillin resistant Staphylococcus aureus; R65.20 - Severe sepsis w ithout septic shock; D65 - Disseminated intravascular coagulation [defibrination syndrome] (2) Bacteremia due to methicillin resistant Staphylococcus aureus Code(s): R78.81 - BACTEREMIA Status: Acute (3) DKA, type 1 Code(s): E10.10 - TYPE 1 DIABETES MELLITUS WITH KETOACIDOSIS WITHOUT COMA Status: Resolved Qualifiers: Diabetes mellitus complication detail: without coma Qualified Code(s): E10.10 - Type 1 diabetes mellitus with ketoacidosis without coma (4) Atrial fibrillation with rapid ventricular response Code(s): I48.91 - UNSPECIFIED ATRIAL FIBRILLATION Status: Acute (5) Alcoholic cirrhosis of liver Code(s): K70.30 - ALCOHOLIC CIRRHOSIS OF LIVER WITHOUT ASCITES Status: Chronic Qualifiers: Ascites presence: without ascites Qualified Code(s): K70.30 - Alcoholic cirrhosis of liver without ascites (6) Anemia, macrocytic Code(s): D53.9 - NUTRITIONAL ANEMIA, UNSPECIFIED Status: Chronic (7) Anxiety and depression Code(s): F41.9 - ANXIETY DISORDER, UNSPECIFIED; F32.9 - MAJOR DEPRESSIVE D ISORDER, SINGLE EPISODE, UNSPECIFIED Status: Chronic (8) CAD (coronary artery disease) Code(s): I25.10 - ATHSCL HEART DISEASE OF [place] CORONARY ARTERY W/O ANG PCTRS Status: Chronic Qualifiers: Coronary Disease-Associated Artery/Lesion type: [place] artery [place] vs. transplanted heart: [place] heart Associated angina: without angina Qualified Code(s): I25.10 - Atherosclerotic heart disease of [place] coronary artery without angina pectoris (9) COPD (chronic obstructive pulmonary disease) Status: Chronic Qualifiers: COPD type: unspecified COPD Qualified Code(s): J44.9 - Chronic obstructive pulmonary disease, unspecified (10) DM type 2 (diabetes mellitus, type 2) Status: Chronic Qualifiers: Diabetes mellitus half-way insulin use: with half-way use Diabetes mellitus complication status: with hyperglycemia Qualified Code(s): E11.65 - Type 2 diabetes mellitus with hyperglycemia; Z79.4 - ocean transportation intermediary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 (11) Dyslipidemia Code(s): E78.5 - HYPERLIPIDEMIA, UNSPECIFIED Status: Chronic (12) GERD (gastroesophageal reflux disease) Code(s): K21.9 - GASTRO-ESOPHAGEAL REFLUX DISEASE WITHOUT ESOPHAGITIS Status: Chronic Qualifiers: Esophagitis presence: esophagitis presence not specified Qualified Code(s): K21.9 - Gastro-esophageal reflux disease without esophagitis (13) HTN (hypertension) Code(s): I10 - ESSENTIAL (PRIMARY) HYPERTENSION Status: Chronic Qualifiers: Hypertension type: essential hypertension Qualified Code(s): I10 - Essential (primary) hypertension (14) Hypoalbuminemia due to protein-calorie malnutrition Code(s): E46 - UNSPECIFIED PROTEIN-CALORIE MALNUTRITION Status: Chronic (15) Hypothyroidism Code(s): E03.9 - HYPOTHYROIDISM, UNSPECIFIED Status: Chronic Qualifiers: Hypothyroidism type: unspecified Qualified Code(s): E03.9 - Hypothyroidism, unspecified (16) PVD (peripheral vascular disease) Code(s): I73.9 - PERIPHERAL VASCULAR DISEASE, UNSPECIFIED Status: Chronic (17) Thrombocytopenia Code(s): D69.6 - THROMBOCYTOPENIA, UNSPECIFIED Status: Chronic (18) Tobacco abuse Code(s): Z72.0 - TOBACCO USE Status: Chronic (19) h/o tavr Status: Chronic (20) Acute metabolic encephalopathy Code(s): G93.41 - METABOLIC ENCEPHALOPATHY Status: Acute (21) Acute kidney injury Code(s): N17.9 - ACUTE KIDNEY FAILURE, UNSPECIFIED Status: Acute (22) CVA (cerebral vascular accident) Code(s): I63.9 - CEREBRAL INFARCTION, UNSPECIFIED Status: Acute Qualifiers: CVA mechanism: other Qualified Code(s): I63.89 - Other cerebral infarction - Plan septic embolism to brain with left frontal area infarct and multiple smaller ones including cerebellar has severe mrsa bacteremia is on vanc and ceftriaxone prior h/o mrsa bacteremia, 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 has DIC due to mrsa bacteremia/sepsis with very low platelets in addition to h/o alc cirrhosis dka has resolved, on lantus and escalate as needed danielle with met acidosis likely due to sepsis/prerenal alb levels of 2.3 likely due to poor nutrition plus cirrhosis afib is rate controlled, on amio drip, coreg 12.5mg bid is npo except meds, hopefully will be allowed to drink/thickened liq diet from today appreciate help from , and /Eloisa further imaging when he is more stable transthoracic echo does not report obvious thrombus/veg, will need [place]. EKG does not show elongated VIDA or av block Palliative care was able to reach out to son and he is a DNAR from 06/13/20. poor prognosis may tx to stroke unit PT/OT to start therapy
--- NOTE | 2020-06-15 15:20 | PRG ---
DATE OF SERVICE: 06/15/2020 OBJECTIVE: VITAL SIGNS: The patient was noted to be afebrile, respiratory rate of 24, O2 saturation of 100% with a blood pressure 111/55. HEENT: Unremarkable. CARDIOVASCULAR SYSTEM: First and second heart sounds were heard. RESPIRATORY SYSTEM: Clear to auscultation. DIGESTIVE SYSTEM: Revealed a benign abdomen. EXTREMITIES: No peripheral edema. IMPRESSION: 1. Acute kidney injury, which seems to have improved. 2. Mild metabolic acidosis. PLAN: 1. Continue current renal supportive measures. 2. Further management to be dependent on the clinical course. Job ID: [id number]
[2020-06-15 20:25] LABS: Vancomycin, Trough 27.1 ug/mL
[2020-06-15] MEDS: traZODone HCl 50 MG TAB PO SCH (21:20)
[2020-06-16 05:17] LABS: Hemoglobin 9.5 g/dL (14.0-18.0); Mean Corpuscular HGB CONC 32.7 g/dL (32.0-36.0); Mean Platelet Volume 16.6 fL (7.4-10.4); Platelet Count 16 thou/uL (130-400); Red Blood Cell (RBC) Count 2.97 mill/uL (4.70-6.10); White Blood Cell (WBC) Count 7.7 thou/uL (4.8-10.8)
[2020-06-16 05:18] LABS: ALT (SGPT) 68 U/L (8-55); AST (SGOT) 70 U/L (5-34); Albumin 1.6 g/dL (3.4-4.8); Alkaline Phosphatase 236 U/L (40-110); Anion Gap 8 mmol/L (10-20); BUN (Urea Nitrogen) 56 mg/dL (8.4-25.7); Band 30 % (5-11); Bilirubin, Total 1.7 mg/dL (0.2-1.2); Calc. Creatinine Clearance 54 mL/min (70-130); Calcium 7.2 mg/dL (7.8-10.44); Carbon Dioxide 24 mmol/L (23-31); Chloride 118 mmol/L (98-107); Globulin 3.1 g/dL (2.4-3.5); Glucose 217 mg/dL (83-110); Hypochromia SLIGHT = 6-15 cells (100X) (0-5/hpf); Lymphocytes 10 % (21-51); MDiff Complete? YES; Monocytes 8 % (0-10); Neutrophil 52 % (42-75); Platelet Morphology Comment Appears Adequate; Potassium 3.8 mmol/L (3.5-5.1); Protein, Total 4.7 g/dL (5.8-8.1); Sodium 146 mmol/L (136-145); Target Cells SLIGHT = 2-5 cells (100X) (0-1/hpf)
[2020-06-16] MEDS: HumaLOG 300 UNITS/3 ML VIAL SC PRN ×2 (06:17→18:13)
[2020-06-16] MEDS: Sodium Bicarbonate 75 MEQ in Sodium Chloride 0.45% 1,000 ML IV SCH (06:17)
[2020-06-16] MEDS ORDERED: Vancomycin 1 GM in Premix Bag 1 BAG IVPB SCH (07:30)
[2020-06-16] MEDS: Bupropion 150 MG SR TAB PO SCH ×2 (08:31→21:04)
[2020-06-16] MEDS: Insulin Glargine 40 UNITS in Pre-Filled Syringe 1 EACH SC SCH ×2 (08:31→21:07)
[2020-06-16] MEDS: Pantoprazole 40 MG GRANULES PACKET PO SCH (08:31)
[2020-06-16] MEDS: Carvedilol 25 MG TAB PO SCH ×2 (08:33→21:01)
[2020-06-16 10:22] LABS: Vancomycin, Random 19.4 ug/mL (See Comment)
[2020-06-16] MEDS: Acetaminophen 325 MG TAB PO PRN ×2 (10:26→21:04)
--- NOTE | 2020-06-16 10:51 | PRG ---
DATE OF SERVICE: 06/16/2020 SUBJECTIVE: John Cruz same. OBJECTIVE: VITAL SIGNS: Temperature is 100.2, blood pressure is 117/50, heart rate is 88, respiratory rate is in the 20s. GENERAL: He appears comfortable. LUNGS: Clear. HEART: Regular rate and rhythm. ABDOMEN: Soft. EXTREMITIES: Without asymmetry edema. LABORATORY DATA: White count 7.7, hemoglobin 9.5, and platelets 16. Sodium 146, potassium 3.8, chloride 118, bicarb 24, BUN 56, creatinine 1.47, glucose 217 this morning. Liver enzymes were mildly elevated. Bilirubin is 1.7, albumin is 1.6. IMPRESSION: Persistent bacteremia with methicillin-resistant Staphylococcus aureus. His blood cultures probably need to be repeated to document clearing. It is highly likely he has endocarditis. He will need long-term IV antimicrobial therapy. Other issues include embolic cerebrovascular accidents, cirrhosis, chronic thrombocytopenia, hyperchloremic metabolic acidosis, hypoalbuminemia, extreme deconditioning. Job ID: [id number]
--- NOTE | 2020-06-16 13:02 | MRI ---
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 Sagittal sagittal STIR imaging demonstrates no focal area of osseous marrow edema. T12-L1:Bilateral facet hypertrophy. Intervertebral disc height and signal intensity within normal jerez its. Motion limits detailed assessment. L1-2:Intervertebral disc height and signal intensity within normal limits. Mild bilateral facet hyper trophy. Evaluation markedly limited on axial imaging secondary to motion. L2-3:Mild disc space narrowing with disc desiccation and mild bilateral facet hypertrophy. Mild bilat eral neural foraminal stenosis. No significant central canal stenosis. Axial imaging limited by motion artifact. L3-4:Bilateral facet hypertrophy and hypertrophy of the ligamentum flavum, right greater than left. D isc space narrowing with disc desiccation and mild disc bulge. Mild central canal stenosis and mild bilateral neural foraminal stenosis. L4-5: Prominent facet hypertrophy with fluid within bilateral facet joints, similar when compared to prior imaging. Severe bilateral facet hypertrophy causes moderate bilateral neural foraminal stenosis, left greater than right. Probable moderate central canal stenosis, detailed assessment limi isauro secondary to motion. L5-S1:Prominent bilateral facet hypertrophy. There is loss of normal intervertebral disc height with findings suggesting bridging osteophyte formation anteriorly. This suggests the sequela of prior discitis/osteomyelitis as seen on the 12/15/2017 examination. Evaluation for recurrent discitis/osteom yelitis is limited without contrast media. There is minimal increased T2 signal intensity ventral to the sacrum. Otherwise, no vertebral inflammatory change at L5-S1. Image retroperitoneal structures demonstrateno acute findings. IMPRESSION: Markedly limited examination secondary to motion. Multilevel lower lumbar spine degenerative change. Irregularity of the L5-S1 intervertebral disc space demonstrates bridging osseous fusion anteriorly with no significant edema suggesting remodeling on the basis of prior discitis/osteomyelitis. Minimal nonspecific fluid anterior to the upper sacrum.
--- NOTE | 2020-06-16 13:09 | PDOC.HOSPP ---
- Subjective Encounter Date: 06/16/20 Encounter Time: 08:00 Subjective: awakens to touch, is very weak to move limbs no sob - Objective Vital Signs & Weight: Vital Signs (12 hours) Temp Pulse Resp Pulse Ox 06/16/20 10:26 100.2 F H 06/16/20 09:00 100.2 F H 06/16/20 08:00 98 06/16/20 06:49 82 28 H 97 06/16/20 06:00 99.7 F H 06/16/20 04:00 98.9 F Weight Admit Weight 194 lb Weight 194 lb 1.6 oz Most Recent Monitor Data Heart Rate from ECG 86 NIBP 113/49 NIBP BP-Mean 70 Respiration from ECG 33 SpO2 97 I&O: 06/15/20 06/16/20 06/17/20 06:59 06:59 06:59 Intake Total 1870 2217 237 Output Total 2465 1342 200 Balance -595 875 37 Result Diagrams: 06/16/20 04:30 06/16/20 04:30 Additional Labs: Accuchecks 06/16/20 06/16/20 06/15/20 10:19 04:33 21:17 POC Glucose 144 H 191 H 269 H 06/15/20 16:51 POC Glucose 299 H Hospitalist ROS - Medication Medications: Active Medications Generic Name Dose Route Start Last Admin Trade Name Freq PRN Reason Stop Dose Admin Acetaminophen 650 mg 06/11/20 22:47 06/16/20 10:26 Acetaminophen 325 Mg Tab PO 650 mg Q6H PRN Administration Fever > 101 Acetaminophen 650 mg 06/12/20 02:33 06/15/20 04:58 Acetaminophen [address] 650 mg Q6H PRN Administration Fever Albuterol/Ipratropium 3 ml 06/12/20 01:00 06/16/20 06:49 Ipratropium/Albuterol Sulfate 3 Ml Neb NEB 3 ml [id number] MICHAELA Administration Bupropion HCl 150 mg 06/12/20 09:00 06/16/20 08:31 Bupropion 150 Mg Sr Tab PO 150 mg BID MICHAELA Administration Carvedilol 12.5 mg 06/12/20 21:00 06/16/20 08:33 Carvedilol 25 Mg Tab PO 12.5 mg BID MICHAELA Administration Amiodarone HCl 450 mg/ 259 mls @ 0 mls/hr 06/12/20 05:00 06/15/20 04:35 Miscellaneous Medication 1 IVPB 259 mls each/ Dextrose/Water INF MICHAELA Administration Protocol As Directed Sodium Bicarbonate 75 meq/ 1,075 mls @ 50 mls/hr 06/13/20 14:15 06/16/20 06:17 Sodium Chloride IV 1,075 mls .[id number] MICHAELA Administration Insulin Glargine 40 units/ 0.4 mls @ 0 mls/hr 06/16/20 09:00 06/16/20 08:31 Miscellaneous Medication SC 0.4 mls BID MICHAELA Administration Insulin Human Lispro 0 units 06/12/20 10:20 06/16/20 06:17 Humalog 300 Units/3 Ml Vial SC 3 unit .AGGRESSIVE SLIDING PRN Administration Aggressive Correctional Scale Nicotine 21 mg 06/11/20 23:00 06/15/20 21:19 Nicotine 21 Mg Patch TD 21 mg Q24HR MICHAELA Administration Pantoprazole Sodium 40 mg 06/16/20 09:00 06/16/20 08:31 Pantoprazole 40 Mg Granules Packet PO 40 mg DAILY MICHAELA Administration Sodium Chloride 10 ml 06/12/20 09:00 06/16/20 09:53 Flush - Normal Saline 10 Ml Syringe IVF 10 ml Q12HR MICHAELA Administration Trazodone HCl 100 mg 06/12/20 21:00 06/15/20 21:20 Trazodone Hcl 50 Mg Tab PO 100 mg HS MICHAELA Administration Hospitalist Exam Vitals: Vital Signs (12 hours) Temp Pulse Resp Pulse Ox 06/16/20 10:26 100.2 F H 06/16/20 09:00 100.2 F H 06/16/20 08:00 98 06/16/20 06:49 82 28 H 97 06/16/20 06:00 99.7 F H 06/16/20 04:00 98.9 F Weight Admit Weight 194 lb Weight 194 lb 1.6 oz Most Recent Monitor Data Heart Rate from ECG 86 NIBP 113/49 NIBP BP-Mean 70 Respiration from ECG 33 SpO2 97 General Appearance: ill appearing Eye: PERRL, anicteric sclera ENT: no oropharyngeal lesions, dry oral mucosa Neck: supple, no JVD Heart: RRR, no murmur Respiratory: no wheezes, no rales, rhonchi Gastrointestinal: soft, non-tender, non-distended, normal bowel sounds Extremities: no cyanosis, 1+ LE edema Neurological: cranial nerve grossly intact Neurological - other findings: left hemiparesis Hosp A/P (1) Sepsis with acute organ dysfunction Code(s): A41.9 - SEPSIS, UNSPECIFIED ORGANISM; R65.20 - SEVERE SEPSIS WITHOUT SEPTIC SHOCK Status: Acute Qualifiers: Sepsis type: methicillin resistant Staphylococcus aureus Severe sepsis acute organ dysfunction type: disseminated intravascular coagulopathy Severe sepsis shock status: without septic shock Qualified Code(s): A41.02 - Sepsis due to Methicillin resistant Staphylococcus aureus; R65.20 - Severe sepsis without septic shock; D65 - Disseminated intravascular coagulation [defibrination syndrome] (2) Bacteremia due to methicillin resistant Staphylococcus aureus Code(s): R78.81 - BACTEREMIA Status: Acute (3) DKA, type 1 Code(s): E10.10 - TYPE 1 DIABETES MELLITUS WITH KETOACIDOSIS WITHOUT COMA Status: Resolved Qualifiers: Diabetes mellitus complication detail: without coma Qualified Code(s): E10.10 - Type 1 diabetes mellitus with ketoacidosis without coma (4) Atrial fibrillation with rapid ventricular response Code(s): I48.91 - UNSPECIFIED ATRIAL FIBRILLATION Status: Acute (5) Alcoholic cirrhosis of liver Code(s): K70.30 - ALCOHOLIC CIRRHOSIS OF LIVER WITHOUT ASCITES Status: Chronic Qualifiers: Ascites presence: without ascites Qualified Code(s): K70.30 - Alcoholic cirrhosis of liver without ascites (6) Anemia, macrocytic Code(s): D53.9 - NUTRITIONAL ANEMIA, UNSPECIFIED Status: Chronic (7) Anxiety and depression Code(s): F41.9 - ANXIETY DISORDER, UNSPECIFIED; F32.9 - MAJOR DEPRESSIVE DISORDER, SINGLE EPISODE, UNSPECIFIED Status: Chronic (8) CAD (coronary artery disease) Code(s): I25.10 - ATHSCL HEART DISEASE OF [place] CORONARY ARTERY W/O ANG PCTRS Status: Chronic Qualifiers: Coronary Disease-Associated Artery/Lesion type: [place] artery [place] vs. transplanted heart: [place] heart Associated angina: without angina Qualified Code(s): I25.10 - Atherosclerotic heart disease of [place] coronary artery without angina pectoris (9) COPD (chronic obstructive pulmonary disease) Status: Chronic Qualifiers: COPD type: unspecified COPD Qualified Code(s): J44.9 - Chronic obstructive pulmonary disease, unspecified (10) DM type 2 (diabetes mellitus, type 2) Status: Chronic Qualifiers: Diabetes mellitus intermediate project manager insulin use: with intermediate project manager use Diabetes mellitus complication status: with hyperglycemia Qualified Code(s): E11.65 - Type 2 diabetes mellitus with hyperglycemia; Z79.4 - ocean transportation intermediary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 (11) Dyslipidemia Code(s): E78.5 - HYPERLIPIDEMIA, UNSPECIFIED Status: Chronic (12) GERD (gastroesophageal reflux disease) Code(s): K21.9 - GASTRO-ESOPHAGEAL REFLUX DISEASE WITHOUT ESOPHAGITIS Status: Chronic Qualifiers: Esophagitis presence: esophagitis presence not specified Qualified Code(s): K21.9 - Gastro-esophageal reflux disease without esophagitis (13) HTN (hypertension) Code(s): I10 - ESSENTIAL (PRIMARY) HYPERTENSION Status: Chronic Qualifiers: Hypertension type: essential hypertension Qualified Code(s): I10 - Essential (primary) hypertension (14) Hypoalbuminemia due to protein-calorie malnutrition Code(s): E46 - UNSPECIFIED PROTEIN-CALORIE MALNUTRITION Status: Chronic (15) Hypothyroidism Code(s): E03.9 - HYPOTHYROIDISM, UNSPECIFIED Status: Chronic Qualifiers: Hypothyroidism type: unspecified Qualified Code(s): E03.9 - Hypothyroidism, unspecified (16) PVD (peripheral vascular disease) Code(s): I73.9 - PERIPHERAL VASCULAR DISEASE, UNSPECIFIED Status: Chronic (17) Thrombocytopenia Code(s): D69.6 - THROMBOCYTOPENIA, UNSPECIFIED Status: Chronic (18) Tobacco abuse Code(s): Z72.0 - TOBACCO USE Status: Chronic (19) h/o tavr Status: Chronic (20) Acute metabolic encephalopathy Code(s): G93.41 - METABOLIC ENCEPHALOPATHY Status: Acute (21) Acute kidney injury Code(s): N17.9 - ACUTE KIDNEY FAILURE, UNSPECIFIED Status: Acute (22) CVA (cerebral vascular accident) Code(s): I63.9 - CEREBRAL INFARCTION, UNSPECIFIED Status: Acute Qualifiers: CVA mechanism: other Qualified Code(s): I63.89 - Other cerebral infarction - Plan septic embolism to brain with left frontal area infarct and multiple smaller ones including right cerebellar area. MRI of all spine wo contrast to see if he has any life threatening abscess. Picc line today. 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 has DIC due to mrsa bacteremia/sepsis with very low platelets in addition to h/o alc cirrhosis dka has resolved, on lantus and escalate as needed danielle with met acidosis likely due to sepsis/prerenal alb levels of 2.3 likely due to poor nutrition plus cirrhosis afib is rate controlled, on amio drip, coreg 12.5mg bid on thickened liq diet to advance as tolerated appreciate help from , and /Eloisa transthoracic echo does not report obvious thrombus/veg, will need [place]. EKG does not show elongated VIDA or av block Palliative care was able to reach out to son and he is a DNAR from 06/13/20, I tried to call 06/16 and was unable to reach him. poor prognosis awaiting bed on stroke unit PT/OT to mobilize as tolerated, he will need snf placement (not sure if he can rehab)
--- NOTE | 2020-06-16 13:11 | MRI ---
MRI of thethoracic spine: 06/16/2020 COMPARISON:None available HISTORY:Altered mental status with back pain TECHNIQUE: Multiplanar multisequence MR imaging of thethoracic spine without contrast Findings:All provided pulse sequences are significantly limited by motion artifact. The sagittal STIR imaging demonstrates no discrete focal area of increased signal intensity within the imaged osseous structures. The thoracic vertebral bodies demonstrate normal height and alignment. No obvious significant central canal stenosis. No obvious abnormal signal intensity within the thorac ic cord. IMPRESSION:Severely limited examination secondary to motion artifact. No gross abnormality.
--- NOTE | 2020-06-16 13:46 | MRI ---
MRI cervical spine noncontrast: 06/16/2020 HISTORY: 75-year-old male with cervicalgia. Rule out discitis and abscess. COMPARISON: 12/05/2018 FINDINGS: Evaluation for infection is limited without IV gadolinium based contrast agent. However, there is no hyperintense signal within the disc spaces on STIR sequence. Furthermore, all images are degraded because of patient motion (patient was medicated). Cervical spinal cord is normal in size and probably normal in signal. There is a greater degree of T1 hypointense signal throughout the bone marrow all now than on the pre vious MRI. This is nonspecific, but possibilities include red marrow conversion, anemia of chronic disease, and marrow infiltrative processes. There continues to be residual normal or increased fatty marrow in a heterogeneous pattern throughout the C6 and C7 vertebral bodies,. Increase in such fatty marrow has occurred at the endplates at multiple levels, including C3-4 and C4 -5, probably representing Modic type II changes. There is no evidence of bone marrow edema involving vertebral bodies on the STIR sequence. There is mildly increased single intensity involving the right C3-4 facet joint space which could be a joint effusion, without necessarily surrounding bone marrow edema. However, the T1-weighted sequences suggest ankylosis instead of the right C3-4 facet joint and possibly also the left C3-4 fac et joint. C1-2: No high-grade central spinal canal stenosis. C2-3: Mild right neural foraminal stenosis. No left foraminal or central canal stenosis. C3-4: The bilateral facet DJD causes chronic grade 1 anterolisthesis of C3 on C4. Moderate disc space narrowing. No high-grade central spinal canal stenosis. Difficult to evaluate neural foramina because of the motion artifact. Probably moderate to severe bilateral neural foraminal stenosis. C4-5: No central spinal canal stenosis. Moderate to severe bilateral neural foraminal stenosis, right worse than left. Moderate to severe disc space narrowing. C5-6: Severe disc space narrowing. Broad-based disc/osteophytic bar complex. No high-grade central sp inal canal stenosis. Moderate severe right and severe left neural foraminal stenosis. Mild central spinal canal stenosis. C6-7: Mild central spinal canal stenosis. Moderate bilateral neural foraminal stenosis. Central and b ilateral paracentral disc-osteophyte complex. Ankylosis between the endplates across obliterated disc space. C7-T1: Chronic mild grade 1 anterolisthesis of C7 on T1 due to facet DJD. Broad-based disc protrusion . No central spinal canal stenosis. Moderate bilateral neural foraminal stenosis. IMPRESSION: 1.) Limited study because of motion. 2) no evidence of discitis 3) high-grade cervical spondylosis with multilevel high-grade bilateral neural foraminal stenosis. 4) possible ankylosis of bilateral C3-4 facet joints. 5) vertebral body ankylosis at C6/7.
[2020-06-16] MEDS ORDERED: VANCOMYCIN 1.25 GM/250 ML BAG 1.25 GM in Premix Bag 1 BAG IVPB SCH (14:00)
--- NOTE | 2020-06-16 15:19 | PRG ---
DATE OF SERVICE: 06/16/2020 OBJECTIVE: VITAL SIGNS: The patient is noted with the following vital signs; blood pressure 102/49, pulse 86, respiratory rate of 32. HEENT: Unremarkable. CARDIOVASCULAR SYSTEM: First and second heart sounds were heard. RESPIRATORY SYSTEM: Clear to auscultation. DIGESTIVE SYSTEM: Revealed a benign abdomen with positive bowel sounds. EXTREMITIES: No peripheral edema. SKIN: No new gross rash. LYMPHATICS: No peripheral lymphadenopathy. LABORATORY INVESTIGATION: Showed a creatinine down to 1.4. IMPRESSION: 1. Acute kidney injury, much improving. 2. Metabolic acidosis. PLAN: We will continue with current renal supportive measures. Job ID: [id number]
[2020-06-16] MEDS: VANCOMYCIN 1.25 GM/250 ML BAG 1.25 GM in Premix Bag 1 BAG IVPB SCH (18:06)
[2020-06-16] MEDS: traZODone HCl 50 MG TAB PO SCH (21:05)
[2020-06-16] MEDS: Nicotine 21 MG PATCH TD SCH (23:39)
[2020-06-17] MEDS: HYDROcodone/Acetaminophen 5/325 mg Tablet PO PRN ×2 (00:56→06:34)
[2020-06-17] MEDS ORDERED: HumaLOG 300 UNITS/3 ML VIAL SC PRN (01:45)
[2020-06-17 06:29] LABS: Band 26 % (5-11); Eosinophils 2 % (0-10); Hemoglobin 9.3 g/dL (14.0-18.0); Lymphocytes 5 % (21-51); MDiff Complete? YES; Mean Corpuscular HGB CONC 34.1 g/dL (32.0-36.0); Mean Corpuscular Hemoglobin 33.4 pg (27.0-31.0); Mean Corpuscular Volume 98.1 fL (78.0-98.0); Mean Platelet Volume 16.4 fL (7.4-10.4); Monocytes 2 % (0-10); Neutrophil 65 % (42-75); Platelet Count 15 thou/uL (130-400); Platelet Morphology Comment Appears Decreased; RBC Distribution Width 16.1 % (11.5-14.5); Red Blood Cell (RBC) Count 2.78 mill/uL (4.70-6.10); Schistocytes SLIGHT = 2-5 cells (100X) (0-1/hpf); White Blood Cell (WBC) Count 7.5 thou/uL (4.8-10.8)
[2020-06-17] MEDS: Pantoprazole 40 MG GRANULES PACKET PO SCH (06:29)
[2020-06-17] MEDS: Bupropion 150 MG SR TAB PO SCH ×2 (06:29→21:58)
[2020-06-17] MEDS: Carvedilol 25 MG TAB PO SCH (06:30)
[2020-06-17] MEDS: Sodium Bicarbonate 75 MEQ in Sodium Chloride 0.45% 1,000 ML IV SCH (06:31)
[2020-06-17] MEDS: HumaLOG 300 UNITS/3 ML VIAL SC PRN (06:35)
[2020-06-17 06:47] LABS: ALT (SGPT) 80 U/L (8-55); AST (SGOT) 96 U/L (5-34); Albumin 1.4 g/dL (3.4-4.8); Alkaline Phosphatase 224 U/L (40-110); Anion Gap 12 mmol/L (10-20); BUN (Urea Nitrogen) 82 mg/dL (8.4-25.7); Bilirubin, Total 1.8 mg/dL (0.2-1.2); Calc. Creatinine Clearance 36 mL/min (70-130); Calcium 6.8 mg/dL (7.8-10.44); Carbon Dioxide 19 mmol/L (23-31); Chloride 120 mmol/L (98-107); Globulin 3.2 g/dL (2.4-3.5); Glucose 226 mg/dL (83-110); Potassium 3.5 mmol/L (3.5-5.1); Protein, Total 4.6 g/dL (5.8-8.1); Sodium 147 mmol/L (136-145)
[2020-06-17] MEDS ORDERED: PHENYLEPHRINE-NS 100 MCG/ML 10 ML SYRINGE ONE (09:56)
[2020-06-17] MEDS ORDERED: PROPOFOL 200 MG/20 ML VIAL ONE (09:56)
[2020-06-17] MEDS ORDERED: Lidocaine 1% PF 5 ML VIAL ONE (09:56)
[2020-06-17] MEDS: Insulin Glargine 40 UNITS in Pre-Filled Syringe 1 EACH SC SCH ×2 (10:01→22:11)
[2020-06-17] MEDS ORDERED: Carvedilol 25 MG TAB PO SCH (12:23)
--- NOTE | 2020-06-17 12:25 | PDOC.NEUPN ---
- Subjective Encounter Date: 06/17/20 Subjective: Anthony seems extremely somnolent today and is unable to talk or follow commands. He does open eyes to noxious stimuli. This is an acute change from yesterday. - Objective Vital Signs & Weight: Vital Signs (12 hours) Temp Pulse Pulse Resp BP BP BP 06/17/20 09:58 70 94/58 L 06/17/20 08:00 98.5 F 76 28 H 100/51 L 06/17/20 07:10 77 24 H 06/17/20 04:29 06/17/20 04:00 99.2 F 71 28 H 96/47 L 06/17/20 01:52 Pulse Ox 06/17/20 09:58 06/17/20 08:00 92 L 06/17/20 07:10 98 06/17/20 04:29 93 L 06/17/20 04:00 90 L 06/17/20 01:52 96 Weight Admit Weight 194 lb Weight 194 lb 1.6 oz Most Recent Monitor Data Heart Rate from ECG 81 NIBP 127/56 NIBP BP-Mean 79 Respiration from ECG 32 SpO2 96 I&O: 06/16/20 06/17/20 06/18/20 06:59 06:59 06:59 Intake Total 2217 788 Output Total 1342 865 Balance 875 -77 Result Diagrams: 06/17/20 05:30 06/17/20 05:30 Additional Labs: Accuchecks 06/17/20 06/17/20 06/17/20 11:46 06:18 00:19 POC Glucose 135 H 203 H 344 H 06/16/20 06/16/20 21:10 16:02 POC Glucose 358 H 197 H Radiology Reviewed by me: Yes EKG Reviewed by me: Yes ROS - Review of Systems ROS unobtainable: due to mental status - Medication Medications: Active Medications Generic Name Dose Route Start Last Admin Trade Name Freq PRN Reason Stop Dose Admin Acetaminophen 650 mg 06/11/20 22:47 06/16/20 21:04 Acetaminophen 325 Mg Tab PO 650 mg Q6H PRN Administration Fever > 101 Acetaminophen 650 mg 06/12/20 02:33 06/15/20 04:58 Acetaminophen 650 Mg Suppository [place] 650 mg Q6H PRN Administration Fever Hydrocodone Bitart/Acetaminophen 1 tab 06/11/20 22:51 06/17/20 06:34 Hydrocodone/Acetaminophen 5/325 Mg Tablet PO 1 tab Q4H PRN Administration Moderate Pain (4-6) Albuterol/Ipratropium 3 ml 06/12/20 01:00 06/17/20 07:10 Ipratropium/Albuterol Sulfate 3 Ml Neb NEB 3 ml [id number] MICHAELA Administration Bupropion HCl 150 mg 06/12/20 09:00 06/17/20 06:29 Bupropion 150 Mg Sr Tab PO 150 mg BID MICHAELA Administration Carvedilol 12.5 mg 06/12/20 21:00 06/17/20 06:30 Carvedilol 25 Mg Tab PO 12.5 mg BID MICHAELA Administration Sodium Bicarbonate 75 meq/ 1,075 mls @ 50 mls/hr 06/13/20 14:15 06/17/20 06:31 Sodium Chloride IV Not Given .[id number] MICHAELA Insulin Glargine 40 units/ 0.4 mls @ 0 mls/hr 06/16/20 09:00 06/17/20 10:01 Miscellaneous Medication SC 0.4 mls BID MICHAELA Administration Vancomycin HCl 1.25 gm/ Device 250 mls @ 166.667 mls/hr 06/16/20 17:00 06/16/20 18:06 IVPB 250 mls 1700 MICHAELA Administration Insulin Human Lispro 0 units 06/12/20 10:20 06/17/20 06:35 Humalog 300 Units/3 Ml Vial SC 6 unit .AGGRESSIVE SLIDING PRN Administration Aggressive Correctional Scale Insulin Human Lispro 0 units 06/17/20 01:45 06/17/20 01:40 Humalog 300 Units/3 Ml Vial SC 4 unit .BEDTIME SLIDING SC PRN Administration BEDTIME SLIDING SCALE Protocol Nicotine 21 mg 06/11/20 23:00 06/16/20 23:39 Nicotine 21 Mg Patch TD 21 mg Q24HR MICHAEAL Administration Pantoprazole Sodium 40 mg 06/16/20 09:00 06/17/20 06:29 Pantoprazole 40 Mg Granules Packet PO 40 mg DAILY MICHAELA Administration Sodium Chloride 10 ml 06/12/20 09:00 06/17/20 06:31 Flush - Normal Saline 10 Ml Syringe IVF 10 ml Q12HR MICHAELA Administration Trazodone HCl 100 mg 06/12/20 21:00 06/16/20 21:05 Trazodone Hcl 50 Mg Tab PO 100 mg HS MICHAELA Administration - Exam General Appearance: ill appearing Eye: PERRL ENT: normocephalic atraumatic Neck: supple Respiratory: CTAB Cardiovascular: RRR Gastrointestinal: soft Extremities: no cyanosis Skin: normal turgor Neurological: no new deficit Musculoskeletal: normal tone, no muscle wasting PSYCH: somnolent, lethargic Results - Labs Result Diagrams: 06/17/20 05:30 06/17/20 05:30 Lab results: WBC 7.5 thou/uL (4.8-10.8) 06/17/20 05:30 Hgb 9.3 g/dL (14.0-18.0) L 06/17/20 05:30 Hct 27.3 % (42.0-52.0) L 06/17/20 05:30 MCV 98.1 fL (78.0-98.0) H 06/17/20 05:30 Plt Count 15 thou/uL (130-400) L* 06/17/20 05:30 Band Neuts % (Manual) 26 % (5-11) H 06/17/20 05:30 Sodium 147 mmol/L (136-145) H 06/17/20 05:30 Potassium 3.5 mmol/L (3.5-5.1) 06/17/20 05:30 Chloride 120 mmol/L (98-107) H 06/17/20 05:30 Carbon Dioxide 19 mmol/L (23-31) L 06/17/20 05:30 BUN 82 mg/dL (8.4-25.7) H 06/17/20 05:30 Creatinine 2.22 mg/dL (0.7-1.3) H 06/17/20 05:30 Glucose 226 mg/dL (83-110) H 06/17/20 05:30 Calcium 6.8 mg/dL (7.8-10.44) L 06/17/20 05:30 Total Bilirubin 1.8 mg/dL (0.2-1.2) H 06/17/20 05:30 AST 96 U/L (5-34) H 06/17/20 05:30 ALT 80 U/L (8-55) H 06/17/20 05:30 Alkaline Phosphatase 224 U/L (40-110) H 06/17/20 05:30 CK-MB (CK-2) 6.8 ng/mL (0-6.6) H* 06/11/20 19:49 Troponin I 0.778 ng/mL (< 0.028) H* 06/12/20 06:31 B-Natriuretic Peptide 1282.0 pg/mL (0-100) H 06/12/20 08:12 Serum Total Protein 4.6 g/dL (5.8-8.1) L 06/17/20 05:30 Albumin 1.4 g/dL (3.4-4.8) L 06/17/20 05:30 Lipase 21 U/L (8-78) 06/11/20 19:49 Urine Ketones Negative mg/dL (Negative) 06/11/20 20:10 Urine Blood 2+ (Negative) A 06/11/20 20:10 Urine Nitrite Negative (Negative) 06/11/20 20:10 Ur Leukocyte Esterase Negative Nancy/uL (Negative) 06/11/20 20:10 Urine RBC Greater than 50 HPF (0-3) A 06/11/20 20:10 Urine WBC 0-3 HPF (0-3) 06/11/20 20:10 Ur Squamous Epith Cells 0-3 HPF (0-3) 06/11/20 20:10 Urine Bacteria None Seen HPF (None Seen) 06/11/20 20:10 PN A/P (1) CVA (cerebral vascular accident) Code(s): I63.9 - CEREBRAL INFARCTION, UNSPECIFIED Status: Acute Qualifiers: CVA mechanism: other Qualified Code(s): I63.89 - Other cerebral infarction (2) Acute kidney injury Code(s): N17.9 - ACUTE KIDNEY FAILURE, UNSPECIFIED Status: Acute (3) DKA, type 1 Code(s): E10.10 - TYPE 1 DIABETES MELLITUS WITH KETOACIDOSIS WITHOUT COMA Status: Resolved Qualifiers: Diabetes mellitus complication detail: without coma Qualified Code(s): E10.10 - Type 1 diabetes mellitus with ketoacidosis without coma (4) Acute blood loss anemia Code(s): D62 - ACUTE POSTHEMORRHAGIC ANEMIA Status: Acute (5) Acute metabolic encephalopathy Code(s): G93.41 - METABOLIC ENCEPHALOPATHY Status: Acute (6) Atrial fibrillation with rapid ventricular response Code(s): I48.91 - UNSPECIFIED ATRIAL FIBRILLATION Status: Acute (7) Bacteremia due to methicillin resistant Staphylococcus aureus Code(s): R78.81 - BACTEREMIA Status: Acute (8) Dehydration Code(s): E86.0 - DEHYDRATION Status: Acute (9) History of aortic valve replacement Code(s): Z95.2 - PRESENCE OF PROSTHETIC HEART VALVE Status: Acute (10) Hypokalemia Code(s): E87.6 - HYPOKALEMIA Status: Acute (11) Hypotension Status: Acute (12) Liane-Goddard tear Code(s): K22.6 - GASTRO-ESOPHAGEAL LACERATION-HEMORRHAGE SYNDROME Status: Acute - Plan Daily Plan: PT/OT, speech therapy, DVT proph w/SCDs Mr. Cruz consulted for altered mental status. AMS seems multifactorial due to metabolic- DKA, infectious - MRSA bacteremia and intracranial pathology since MRI Brain is positive for acute infarctions , most likely septic emboli due to MRSA bacteremia. Mr. Cruz condition improved in the last 2 days and he was alert and oriented to person and place and was able to carry a conversation. He was transferred out to the stroke floor. Today, he is extremely somnolent and unable to wake him up. He does not follow commands or maintain any eye contact which is a acute decline Consider repeat EEG to rule out seizure activity. Head CT noncontrast to rule out acute intracranial process. N.p.o. till cleared by speech. Patient was started on pured diet after modified barium swallow but at this point he is extremely somnolent and at risk for aspiration pneumonia. Further recommendations will depend on the results of the testing MRI Brain positive for acute infarctions. 2D Echo showed LVEF 50-55%. Need [place] but await cardiology input since prognosis is guarded in the setting of severe thrombocytopenia and sepsis. He continues to have thrombocytopenia with platelets 15 today Continue Telemetry to monitor for arrythmias. Neurochecks every 4 hours. EEG reviewed which was negative for seizure activity Permissive BP control at this time. Strict control of blood glucose. Patient cleared by speech for pured diet. PT/OT/Speech DVT prophylaxis with SCD's. Palliative care consult Avoid antiplatelets and anticoagulants due to thrombocytopenia. Platelet count 15. Continue medical management per primary team. Plan discussed in detail with the nursing staff, patient and and also recent change with Dr. Marte
--- NOTE | 2020-06-17 12:28 | SPC ---
Ultrasound-guidedleftupper extremity PICC placement: 06/17/2020 HISTORY: Sepsis, IV antibiotics FINDINGS: Informed consent obtained prior to the procedure. Left antecubital fossa prepped and draped in normal sterile fashion. Skin overlying theleft basilicvein anesthetized with 1% buffered lidocaine. With direct sonographic g uidance, vascular access is obtained via the left basilicvein and an 0.018in wire was advanced to the cavoatrial junction. Intravascular length is calculated at 43 cm and of the PICC is cut according ly. Needle is removed and replaced with a peel-away sheath. The PICC was advanced over the wire. Wire and peel-away sheath were removed. The tip of the catheter overlies the cavoatrial junction. The port flushes well and the catheter is ready for use. Exposure data: 0.1 minutes of fluoroscopic time 510 mGy per centimeter squared IMPRESSION: Successful ultrasound guided placement of a leftupper extremity PICC.
[2020-06-17] MEDS ORDERED: Carvedilol 3.125 MG TAB PO SCH (12:45)
[2020-06-17] MEDS ORDERED: Ondansetron HCl/PF 4 MG/2 ML Vial IVP PRN (13:23)
[2020-06-17] MEDS ORDERED: Promethazine HCl 25 MG/ML VIAL IM PRN (13:23)
[2020-06-17] MEDS ORDERED: Promethazine HCl 25 MG/ML VIAL SLOW IVP PRN (13:23)
--- NOTE | 2020-06-17 16:30 | PDOC.HOSPP ---
- Subjective Encounter Date: 06/17/20 Encounter Time: 07:45 Subjective: lethargic but awakens easily - Objective Vital Signs & Weight: Vital Signs (12 hours) Temp Pulse Pulse Resp BP BP BP 06/17/20 16:00 97.6 F 61 32 H 131/39 L 06/17/20 14:09 98.3 F 65 20 133/38 L 06/17/20 12:00 98.1 F 70 24 H 160/46 H 06/17/20 09:58 70 94/58 L 06/17/20 08:00 98.5 F 76 28 H 100/51 L 06/17/20 07:10 77 24 H 06/17/20 04:29 Pulse Ox 06/17/20 16:00 95 06/17/20 14:09 93 L 06/17/20 12:00 93 L 06/17/20 09:58 06/17/20 08:00 92 L 06/17/20 07:10 98 06/17/20 04:29 93 L Weight Admit Weight 194 lb Weight 194 lb 1.6 oz Most Recent Monitor Data Heart Rate from ECG 81 NIBP 127/56 NIBP BP-Mean 79 Respiration from ECG 32 SpO2 96 I&O: 06/16/20 06/17/20 06/18/20 06:59 06:59 06:59 Intake Total 2217 788 Output Total 1342 865 Balance 875 -77 Result Diagrams: 06/17/20 05:30 06/17/20 05:30 Additional Labs: Accuchecks 06/17/20 06/17/20 06/17/20 11:46 06:18 00:19 POC Glucose 135 H 203 H 344 H 06/16/20 06/16/20 21:10 16:02 POC Glucose 358 H 197 H Hospitalist ROS - Medication Medications: Active Medications Generic Name Dose Route Start Last Admin Trade Name Freq PRN Reason Stop Dose Admin Acetaminophen 650 mg 06/11/20 22:47 06/16/20 21:04 Acetaminophen 325 Mg Tab PO 650 mg Q6H PRN Administration Fever > 101 Acetaminophen 650 mg 06/12/20 02:33 06/15/20 04:58 Acetaminophen 650 Mg Suppository [place] 650 mg Q6H PRN Administration Fever Hydrocodone Bitart/Acetaminophen 1 tab 06/11/20 22:51 06/17/20 06:34 Hydrocodone/Acetaminophen 5/325 Mg Tablet PO 1 tab Q4H PRN Administration Moderate Pain (4-6) Albuterol/Ipratropium 3 ml 06/12/20 01:00 06/17/20 13:40 Ipratropium/Albuterol Sulfate 3 Ml Neb NEB Not Given [id number] MICHAELA Bupropion HCl 150 mg 06/12/20 09:00 06/17/20 06:29 Bupropion 150 Mg Sr Tab PO 150 mg BID MICHAELA Administration Insulin Glargine 40 units/ 0.4 mls @ 0 mls/hr 06/16/20 09:00 06/17/20 10:01 Miscellaneous Medication SC 0.4 mls BID MICHAELA Administration Vancomycin HCl 1.25 gm/ Device 250 mls @ 166.667 mls/hr 06/16/20 17:00 06/16/20 18:06 IVPB 250 mls 1700 MICHAELA Administration Insulin Human Lispro 0 units 06/12/20 10:20 06/17/20 06:35 Humalog 300 Units/3 Ml Vial SC 6 unit .AGGRESSIVE SLIDING PRN Administration Aggressive Correctional Scale Insulin Human Lispro 0 units 06/17/20 01:45 06/17/20 01:40 Humalog 300 Units/3 Ml Vial SC 4 unit .BEDTIME SLIDING SC PRN Administration BEDTIME SLIDING SCALE Protocol Nicotine 21 mg 06/11/20 23:00 06/16/20 23:39 Nicotine 21 Mg Patch TD 21 mg Q24HR MICHAELA Administration Pantoprazole Sodium 40 mg 06/16/20 09:00 06/17/20 06:29 Pantoprazole 40 Mg Granules Packet PO 40 mg DAILY MICHAELA Administration Sodium Chloride 10 ml 06/12/20 09:00 06/17/20 06:31 Flush - Normal Saline 10 Ml Syringe IVF 10 ml Q12HR MICHAELA Administration Trazodone HCl 100 mg 06/12/20 21:00 06/16/20 21:05 Trazodone Hcl 50 Mg Tab PO 100 mg HS MICHAELA Administration Hospitalist Exam Vitals: Vital Signs (12 hours) Temp Pulse Pulse Resp BP BP BP 06/17/20 16:00 97.6 F 61 32 H 131/39 L 06/17/20 14:09 98.3 F 65 20 133/38 L 06/17/20 12:00 98.1 F 70 24 H 160/46 H 02/26/21 09:58 70 94/58 L 06/17/20 08:00 98.5 F 76 28 H 100/51 L 06/17/20 07:10 77 24 H 06/17/20 04:29 Pulse Ox 06/17/20 16:00 95 06/17/20 14:09 93 L 06/17/20 12:00 93 L 06/17/20 09:58 06/17/20 08:00 92 L 06/17/20 07:10 98 06/17/20 04:29 93 L Weight Admit Weight 194 lb Weight 194 lb 1.6 oz Most Recent Monitor Data Heart Rate from ECG 81 NIBP 127/56 NIBP BP-Mean 79 Respiration from ECG 32 SpO2 96 General Appearance: ill appearing Eye: PERRL, anicteric sclera ENT: no oropharyngeal lesions, dry oral mucosa Neck: supple, no JVD Heart: RRR, no murmur Respiratory: no wheezes, no rales, rhonchi Gastrointestinal: soft, non-tender, non-distended, normal bowel sounds Extremities: no cyanosis, no edema Neurological: cranial nerve grossly intact Neurological - other findings: left hemiparesis Hosp A/P (1) Sepsis with acute organ dysfunction Code(s): A41.9 - SEPSIS, UNSPECIFIED ORGANISM; R65.20 - SEVERE SEPSIS WITHOUT SEPTIC SHOCK Status: Acute Qualifiers: Sepsis type: methicillin resistant Staphylococcus aureus Severe sepsis acute organ dysfunction type: disseminated intravascular coagulopathy Severe sepsis shock status: without septic shock Qualified Code(s): A41.02 - Sepsis due to Methicillin resistant Staphylococcus aureus; R65.20 - Severe sepsis wit hout septic shock; D65 - Disseminated intravascular coagulation [defibrination syndrome] (2) Bacteremia due to methicillin resistant Staphylococcus aureus Code(s): R78.81 - BACTEREMIA Status: Acute (3) DKA, type 1 Code(s): E10.10 - TYPE 1 DIABETES MELLITUS WITH KETOACIDOSIS WITHOUT COMA Status: Resolved Qualifiers: Diabetes mellitus complication detail: without coma Qualified Code(s): E10.10 - Type 1 diabetes mellitus with ketoacidosis without coma (4) Atrial fibrillation with rapid ventricular response Code(s): I48.91 - UNSPECIFIED ATRIAL FIBRILLATION Status: Acute (5) Alcoholic cirrhosis of liver Code(s): K70.30 - ALCOHOLIC CIRRHOSIS OF LIVER WITHOUT ASCITES Status: Chronic Qualifiers: Ascites presence: without ascites Qualified Code(s): K70.30 - Alcoholic cirrhosis of liver without ascites (6) Anemia, macrocytic Code(s): D53.9 - NUTRITIONAL ANEMIA, UNSPECIFIED Status: Chronic (7) Anxiety and depression Code(s): F41.9 - ANXIETY DISORDER, UNSPECIFIED; F32.9 - MAJOR DEPRESSIVE DIS ORDER, SINGLE EPISODE, UNSPECIFIED Status: Chronic (8) CAD (coronary artery disease) Code(s): I25.10 - ATHSCL HEART DISEASE OF [place] CORONARY ARTERY W/O ANG PCTRS Status: Chronic Qualifiers: Coronary Disease-Associated Artery/Lesion type: [place] artery [place] vs. transplanted heart: [place] heart Associated angina: without angina Qualified Code(s): I25.10 - Atherosclerotic heart disease of [place] coronary artery without angina pectoris (9) COPD (chronic obstructive pulmonary disease) Status: Chronic Qualifiers: COPD type: unspecified COPD Qualified Code(s): J44.9 - Chronic obstructive pulmonary disease, unspecified (10) DM type 2 (diabetes mellitus, type 2) Status: Chronic Qualifiers: Diabetes mellitus mcc insulin use: with long term care administrator use Diabetes mellitus complication status: with hyperglycemia Qualified Code(s): E11.65 - Type 2 diabetes mellitus with hyperglycemia; Z79.4 - correction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 (11) Dyslipidemia Code(s): E78.5 - HYPERLIPIDEMIA, UNSPECIFIED Status: Chronic (12) GERD (gastroesophageal reflux disease) Code(s): K21.9 - GASTRO-ESOPHAGEAL REFLUX DISEASE WITHOUT ESOPHAGITIS Status: Chronic Qualifiers: Esophagitis presence: esophagitis presence not specified Qualified Code(s): K21.9 - Gastro-esophageal reflux disease without esophagitis (13) HTN (hypertension) Code(s): I10 - ESSENTIAL (PRIMARY) HYPERTENSION Status: Chronic Qualifiers: Hypertension type: essential hypertension Qualified Code(s): I10 - Essential (primary) hypertension (14) Hypoalbuminemia due to protein-calorie malnutrition Code(s): E46 - UNSPECIFIED PROTEIN-CALORIE MALNUTRITION Status: Chronic (15) Hypothyroidism Code(s): E03.9 - HYPOTHYROIDISM, UNSPECIFIED Status: Chronic Qualifiers: Hypothyroidism type: unspecified Qualified Code(s): E03.9 - Hypothyroidism, unspecified (16) PVD (peripheral vascular disease) Code(s): I73.9 - PERIPHERAL VASCULAR DISEASE, UNSPECIFIED Status: Chronic (17) Thrombocytopenia Code(s): D69.6 - THROMBOCYTOPENIA, UNSPECIFIED Status: Chronic (18) Tobacco abuse Code(s): Z72.0 - TOBACCO USE Status: Chronic (19) h/o tavr Status: Chronic (20) Acute metabolic encephalopathy Code(s): G93.41 - METABOLIC ENCEPHALOPATHY Status: Acute (21) Acute kidney injury Code(s): N17.9 - ACUTE KIDNEY FAILURE, UNSPECIFIED Status: Acute (22) CVA (cerebral vascular accident) Code(s): I63.9 - CEREBRAL INFARCTION, UNSPECIFIED Status: Acute Qualifiers: CVA mechanism: other Qualified Code(s): I63.89 - Other cerebral infarction (23) Infective endocarditis Code(s): I33.0 - ACUTE AND SUBACUTE INFECTIVE ENDOCARDITIS Status: Acute Qualifiers: Infective endocarditis organism: bacterial Chronicity: acute Qualified Code(s): I33.0 - Acute and subacute infective endocarditis - Plan septic embolism to brain with left frontal area infarct and multiple smaller ones including right cerebellar area. MRI of all spine wo contrast did not reveal any obvious epidural abscess or signs of discitis. has severe mrsa bacteremia with septic emboli and cva, endocarditis is on vanc prior h/o mrsa bacteremia, has h/o discitis in cervical and lumbar spine area, h/o epidural abscess, h/o mitral valve endocarditis. has DIC due to mrsa bacteremia/sepsis with very low platelets in addition to h/o alc cirrhosis dka has resolved, on lantus and escalate as needed danielle with met acidosis likely due to sepsis/prerenal alb levels of 2.3 likely due to poor nutrition plus cirrhosis afib is rate controlled, on coreg on thickened liq diet to advance as tolerated appreciate help from , and /Elo[facility] transthoracic echo does not report obvious thrombus/veg, [place] official report is pending, has veg on mitral and aortic valve per staff. Palliative care was able to reach out to son and he is a DNAR from 06/13/20, I tried to call 06/16 and was unable to reach him. poor prognosis PT/OT to mobilize as tolerated, he will need snf placement (not sure if he can rehab)
--- NOTE | 2020-06-17 16:56 | PDOC.EEG ---
Neurology EEG Report - Report Report: This EEG was performed using 24 channel Hats[employer] video EEG machine with 24 disc electrodes. This was an extended 2 hours 7 minutes of inpatient video EEG recording. Digital analysis of the EEG was done for spike and seizure detection which revealed no abnormalities. Background: The posterior background rhythm is not observed. Hyperventilation: Not performed. Photic Stimulation: No significant response. Sleep: No stage change is observed. EEG Diagnosis: Generalized irregular theta delta activity seen during the recording. Absence of posterior background rhythm. Clinical Interpretation: This EEG is consistent with moderate generalized nonspecific cerebral d ysfunction.
[2020-06-17] MEDS: VANCOMYCIN 1.25 GM/250 ML BAG 1.25 GM in Premix Bag 1 BAG IVPB SCH (17:29)
--- NOTE | 2020-06-17 18:37 | PRG ---
DATE OF SERVICE: 06/17/2020 SUBJECTIVE: The patient noted with the following vital signs. OBJECTIVE: VITAL SIGNS: Afebrile, temperature 97.6; pulse 61; respiratory rate of 20; O2 saturation of 93% to 95%; blood pressure 133/38, down to 94/58. HEENT: Unremarkable. CARDIOVASCULAR SYSTEM: First and second heart sounds were heard. RESPIRATORY SYSTEM: Clear to auscultation. DIGESTIVE SYSTEM: Revealed a benign abdomen. NEUROLOGIC: Revealed a patient who is very somnolent, barely arousable. EXTREMITIES: Show peripheral edema. LABORATORY INVESTIGATION: Showed a sodium of 147, bicarb of 19, BUN of 82, creatinine of . Albumin of 1.4. CBC showed platelet of 15,000 and hemoglobin 9.3. . IMPRESSION: 1. Acute kidney injury. This is likely hemodynamically mediated because of several episodes of hypotension yesterday. 2. Anasarca, likely in the context of low oncotic pressure due to low albumin. 3. Labile hemodynamics. 4. Hypernatremia. 5. Mental status change, query cause. PLAN: 1. We will increase the free water intake of this patient via the oral cavity. 2. We will discontinue current IV fluid. 3. If the hemodynamics does not improve, we will start this patient on albumin and consider diuresis also. 4. Thrombocytopenic management is per the primary team. Job ID: [id number]
[2020-06-17] MEDS: traZODone HCl 50 MG TAB PO SCH (21:58)
[2020-06-17] MEDS: Carvedilol 3.125 MG TAB PO SCH (22:34)
[2020-06-17] MEDS: Nicotine 21 MG PATCH TD SCH (23:04)
[2020-06-18 05:39] LABS: #Monocytes 0.4 thou/uL (0.11-0.59); #Neutrophils 7.7 thou/uL (1.40-6.50); %Basophils 0.2 % (0.0-1.0); %Eosinophils 0.2 % (0.0-10.0); %Lymphocytes 10.6 % (21.0-51.0); %Monocytes 4.7 % (0.0-10.0); %Neutrophils 84.3 % (42.0-75.0); Mean Corpuscular HGB CONC 32.9 g/dL (32.0-36.0); Mean Corpuscular Hemoglobin 32.3 pg (27.0-31.0); Mean Corpuscular Volume 98.2 fL (78.0-98.0); Mean Platelet Volume 16.5 fL (7.4-10.4); Platelet Count 18 thou/uL (130-400); RBC Distribution Width 16.3 % (11.5-14.5); Red Blood Cell (RBC) Count 2.78 mill/uL (4.70-6.10); White Blood Cell (WBC) Count 9.2 thou/uL (4.8-10.8)
[2020-06-18 06:02] LABS: ALT (SGPT) 53 U/L (8-55); AST (SGOT) 46 U/L (5-34); Albumin 1.5 g/dL (3.4-4.8); Alkaline Phosphatase 180 U/L (40-110); Anion Gap 12 mmol/L (10-20); BUN (Urea Nitrogen) 88 mg/dL (8.4-25.7); Bilirubin, Total 1.8 mg/dL (0.2-1.2); Calc. Creatinine Clearance 38 mL/min (70-130); Calcium 6.7 mg/dL (7.8-10.44); Carbon Dioxide 21 mmol/L (23-31); Chloride 124 mmol/L (98-107); Globulin 3.4 g/dL (2.4-3.5); Glucose 144 mg/dL (83-110); Potassium 3.2 mmol/L (3.5-5.1); Protein, Total 4.9 g/dL (5.8-8.1); Sodium 154 mmol/L (136-145)
[2020-06-18] MEDS ORDERED: Dextrose 5% in Water 1,000 ML IV SCH (06:30)
[2020-06-18] MEDS ORDERED: Loratadine 10 MG TAB PO PRN (07:07)
[2020-06-18] MEDS ORDERED: GUAIFENESIN SF SOLN 200 MG/10 ML UDCUP PO PRN (07:07)
[2020-06-18] MEDS ORDERED: Sodium Chloride 0.65% Nasal 44 ML BOT EA NARE PRN (07:07)
[2020-06-18] MEDS ORDERED: Cepastat Lozenges 1 LOZ PO PRN (07:07)
[2020-06-18] MEDS ORDERED: Ondansetron ODT 4 MG TAB PO PRN (07:07)
[2020-06-18] MEDS ORDERED: Bisacodyl 10 MG SUPP PR PRN (07:07)
[2020-06-18] MEDS ORDERED: Senokot S 8.6-50 MG TAB PO PRN (07:07)
[2020-06-18] MEDS ORDERED: hydrALAZINE 20 MG/ML VIAL SLOW IVP PRN (07:07)
[2020-06-18] MEDS ORDERED: Loperamide HCl 2 MG CAP PO PRN (07:07)
[2020-06-18 07:52] LABS: Magnesium 2.6 mg/dL (1.6-2.6); Phosphorus 4.6 mg/dL (2.3-4.7)
[2020-06-18] MEDS ORDERED: Potassium Chloride 10 MEQ in Premix Bag 1 BAG IVPB SCH (09:00)
[2020-06-18] MEDS: Pantoprazole 40 MG GRANULES PACKET PO SCH (09:52)
[2020-06-18] MEDS: Bupropion 150 MG SR TAB PO SCH ×2 (09:52→21:07)
[2020-06-18] MEDS: Acetaminophen 325 MG TAB PO PRN (09:52)
[2020-06-18] MEDS: Carvedilol 3.125 MG TAB PO SCH ×2 (09:52→21:07)
[2020-06-18] MEDS: Potassium Chloride 40 MEQ in Dextrose 5% in Water 1,000 ML IV SCH ×4 (10:03→20:41)
[2020-06-18] MEDS: Insulin Glargine 40 UNITS in Pre-Filled Syringe 1 EACH SC SCH ×2 (10:09→21:07)
[2020-06-18] MEDS: HYDROcodone/Acetaminophen 5/325 mg Tablet PO PRN (10:15)
--- NOTE | 2020-06-18 10:54 | PDOC.HOSPP ---
- Subjective Encounter Date: 06/18/20 Encounter Time: 07:10 Subjective: Patient seen and examined. No new complaints. No overnight events, patient is very weak, - Objective Vital Signs & Weight: Vital Signs (12 hours) Temp Pulse Pulse Resp BP BP Pulse Ox 06/18/20 09:26 63 103/44 L 06/18/20 07:30 98.6 F 73 20 148/39 H 96 06/18/20 04:45 98.4 F 77 24 H 126/57 L 94 L 06/18/20 00:50 98.3 F 73 22 H 144/47 H 93 L 06/18/20 00:04 96 Weight Admit Weight 194 lb Weight 194 lb 1.6 oz Most Recent Monitor Data Heart Rate from ECG 81 NIBP 127/56 NIBP BP-Mean 79 Respiration from ECG 32 SpO2 96 I&O: 06/17/20 06/18/20 06/19/20 06:59 06:59 06:59 Intake Total 788 Output Total 865 450 Balance -77 -450 Result Diagrams: 06/18/20 05:01 06/18/20 05:01 Additional Labs: Accuchecks 06/18/20 06/17/20 06/17/20 04:45 22:06 16:49 POC Glucose 133 H 141 H 129 H 06/17/20 11:46 POC Glucose 135 H Radiology Reviewed by me: Yes EKG Reviewed by me: Yes Hospitalist ROS - Review of Systems ROS unobtainable: due to mental status - Medication Medications: Active Medications Generic Name Dose Route Start Last Admin Trade Name Freq PRN Reason Stop Dose Admin Acetaminophen 650 mg 06/11/20 22:47 06/18/20 09:52 Acetaminophen 325 Mg Tab PO 650 mg Q6H PRN Administration Fever > 101 Acetaminophen 650 mg 06/12/20 02:33 06/15/20 04:58 Acetaminophen 650 Mg Suppository [place] 650 mg Q6H PRN Administration Fever Hydrocodone Bitart/Acetaminophen 1 tab 06/11/20 22:51 06/18/20 10:15 Hydrocodone/Acetaminophen 5/325 Mg Tablet PO 1 tab Q4H PRN Administration Moderate Pain (4-6) Albuterol/Ipratropium 3 ml 06/12/20 01:00 06/18/20 07:30 Ipratropium/Albuterol Sulfate 3 Ml Neb NEB 3 ml [id number] MICHAELA Administration Bupropion HCl 150 mg 06/12/20 09:00 06/18/20 09:52 Bupropion 150 Mg Sr Tab PO 150 mg BID MICHAELA Administration Carvedilol 3.125 mg 06/17/20 21:00 06/18/20 09:52 Carvedilol 3.125 Mg Tab PO 3.125 mg BID MICHAELA Administration Insulin Glargine 40 units/ 0.4 mls @ 0 mls/hr 06/16/20 09:00 06/18/20 10:09 Miscellaneous Medication SC 0.4 mls BID MICHAELA Administration Vancomycin HCl 1.25 gm/ Device 250 mls @ 166.667 mls/hr 06/16/20 17:00 06/17/20 17:29 IVPB 250 mls 1700 MICHAELA Administration Dextrose/Water 1,000 mls @ 50 mls/hr 06/18/20 06:30 06/18/20 10:02 D5w IV 1,000 mls .Q20H MICHAELA Administration Potassium Chloride 10 meq/ 100 mls @ 100 mls/hr 06/18/20 09:00 06/18/20 09:57 Device IVPB 06/18/20 12:00 100 mls NOW MICHAELA Administration Potassium Chloride 40 meq/ 1,020 mls @ 125 mls/hr 06/18/20 10:00 06/18/20 10:03 Dextrose/Water IV 1,020 mls .Q8H10M MICHAELA Administration Insulin Human Lispro 0 units 06/12/20 10:20 06/17/20 06:35 Humalog 300 Units/3 Ml Vial SC 6 unit .AGGRESSIVE SLIDING PRN Administration Aggressive [employer] Scale Insulin Human Lispro 0 units 06/17/20 01:45 06/17/20 01:40 Humalog 300 Units/3 Ml Vial SC 4 unit .BEDTIME SLIDING SC PRN Administration BEDTIME SLIDING SCALE Protocol Nicotine 21 mg 06/11/20 23:00 06/17/20 23:04 Nicotine 21 Mg Patch TD 21 mg Q24HR MICHAELA Administration Pantoprazole Sodium 40 mg 06/16/20 09:00 06/18/20 09:52 Pantoprazole 40 Mg Granules Packet PO 40 mg DAILY MICHAELA Administration Sodium Chloride 10 ml 06/12/20 09:00 06/18/20 09:57 Flush - Normal Saline 10 Ml Syringe IVF 10 ml Q12HR MICHAELA Administration Trazodone HCl 100 mg 06/12/20 21:00 06/17/20 21:58 Trazodone Hcl 50 Mg Tab PO 100 mg HS MICHAELA Administration Hospitalist Exam Vitals: Vital Signs (12 hours) Temp Pulse Pulse Resp BP BP Pulse Ox 06/18/20 09:26 63 103/44 L 06/18/20 07:30 98.6 F 73 20 148/39 H 96 06/18/20 04:45 98.4 F 77 24 H 126/57 L 94 L 06/18/20 00:50 98.3 F 73 22 H 144/47 H 93 L 06/18/20 00:04 96 Weight Admit Weight 194 lb Weight 194 lb 1.6 oz Most Recent Monitor Data Heart Rate from ECG 81 NIBP 127/56 NIBP BP-Mean 79 Respiration from ECG 32 SpO2 96 General Appearance: NAD, ill appearing Eye: PERRL, anicteric sclera ENT: normocephalic atraumatic, no oropharyngeal lesions Neck: supple, symmetric, no JVD, no thyromegaly Heart: no gallops, no rubs, murmur present Respiratory: no wheezes, no rales, no ronchi Gastrointestinal: soft, non-tender, non-distended, normal bowel sounds Extremities: no clubbing, no edema Extremities - other findings: Gangrenous changes noted on foot Skin: normal turgor Neurological: no new deficit Psychiatric: not oriented Hosp A/P (1) CVA (cerebral vascular accident) Code(s): I63.9 - CEREBRAL INFARCTION, UNSPECIFIED Status: Acute Qualifiers: CVA mechanism: other Qualified Code(s): I63.89 - Other cerebral infarction (2) Infective endocarditis Code(s): I33.0 - ACUTE AND SUBACUTE INFECTIVE ENDOCARDITIS Status: Acute Qualifiers: Infective endocarditis organism: bacterial Chronicity: acute Qualified Code(s): I33.0 - Acute and subacute infective endocarditis (3) Acute metabolic encephalopathy Code(s): G93.41 - METABOLIC ENCEPHALOPATHY Status: Acute (4) Bacteremia due to methicillin resistant Staphylococcus aureus Code(s): R78.81 - BACTEREMIA Status: Acute (5) Discitis of cervical region Code(s): M46.42 - [place], UNSPECIFIED, CERVICAL REGION Status: Acute (6) Discitis of lumbosacral region Code(s): M46.47 - [place], UNSPECIFIED, LUMBOSACRAL REGION Status: Acute (7) Gangrene of toe of right foot Code(s): I96 - GANGRENE, NOT ELSEWHERE CLASSIFIED Status: Acute (8) Osteomyelitis of toe of right foot Code(s): M86.9 - OSTEOMYELITIS, UNSPECIFIED Status: Acute (9) Sepsis with acute organ dysfunction Code(s): A41.9 - SEPSIS, UNSPECIFIED ORGANISM; R65.20 - SEVERE SEPSIS WITHOUT SEPTIC SHOCK Status: Acute Qualifiers: Sepsis type: methicillin resistant Staphylococcus aureus Severe sepsis acute organ dysfunction type: disseminated intravascular coagulopathy Severe sepsis shock status: without septic shock Qualified Code(s): A41.02 - Sepsis due to Methicillin resistant Staphylococcus aureus; R65.20 - Severe sepsis without septic shock; D65 - Disseminated intravascular coagulation [defibr ination syndrome] (10) Splenic infarct Code(s): D73.5 - INFARCTION OF SPLEEN Status: Acute (11) Alcoholic cirrhosis of liver Code(s): K70.30 - ALCOHOLIC CIRRHOSIS OF LIVER WITHOUT ASCITES Status: Chronic Qualifiers: Ascites presence: without ascites Qualified Code(s): K70.30 - Alcoholic cirrhosis of liver without ascites (12) Anxiety and depression Code(s): F41.9 - ANXIETY DISORDER, UNSPECIFIED; F32.9 - MAJOR DEPRESSIVE DISORDER, SINGLE EPISODE, UNSPECIFIED Status: Chronic (13) Aortic stenosis Code(s): I35.0 - NONRHEUMATIC AORTIC (VALVE) STENOSIS Status: Chronic (14) CAD (coronary artery disease) Code(s): I25.10 - ATHSCL HEART DISEASE OF [place] CORONARY ARTERY W/O ANG PCTRS Status: Chronic Qualifiers: Coronary Disease-Associated Artery/Lesion type: [place] artery [place] vs. transplanted heart: [place] heart Associated angina: without angina Qualified Code(s): I25.10 - Atherosclerotic heart disease of [place] coronary artery without angina pectoris (15) COPD (chronic obstructive pulmonary disease) Status: Chronic Qualifiers: COPD type: unspecified COPD Qualified Code(s): J44.9 - Chronic obstructive pulmonary disease, unspecified (16) Chronic combined systolic and diastolic CHF (congestive heart failure) Code(s): I50.42 - CHRONIC COMBINED SYSTOLIC AND DIASTOLIC HRT FAIL Status: Chronic (17) DM type 2 (diabetes mellitus, type 2) Status: Chronic Qualifiers: Diabetes mellitus intermodal dispatcher insulin use: with intermodal dispatcher use Diabetes mellitus complication status: with hyperglycemia Qualified Code(s): E11.65 - Type 2 diabetes mellitus with hyperglycemia; Z79.4 - jail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 (18) Dyslipidemia Code(s): E78.5 - HYPERLIPIDEMIA, UNSPECIFIED Status: Chronic (19) GERD (gastroesophageal reflux disease) Code(s): K21.9 - GASTRO-ESOPHAGEAL REFLUX DISEASE WITHOUT ESOPHAGITIS Status: Chronic Qualifiers: Esophagitis presence: esophagitis presence not specified Qualified Code(s): K21.9 - Gastro-esophageal reflux disease without esophagitis (20) HTN (hypertension) Code(s): I10 - ESSENTIAL (PRIMARY) HYPERTENSION Status: Chronic Qualifiers: Hypertension type: essential hypertension Qualified Code(s): I10 - Essential (primary) hypertension (21) Hypothyroidism Code(s): E03.9 - HYPOTHYROIDISM, UNSPECIFIED Status: Chronic Qualifiers: Hypothyroidism type: unspecified Qualified Code(s): E03.9 - Hypothyroidism, unspecified (22) PVD (peripheral vascular disease) Code(s): I73.9 - PERIPHERAL VASCULAR DISEASE, UNSPECIFIED Status: Chronic (23) Protein-calorie malnutrition, moderate Code(s): E44.0 - MODERATE PROTEIN-CALORIE MALNUTRITION Status: Chronic (24) Thrombocytopenia Code(s): D69.6 - THROMBOCYTOPENIA, UNSPECIFIED Status: Chronic (25) Tobacco abuse Code(s): Z72.0 - TOBACCO USE Status: Chronic (26) h/o tavr Status: Chronic (27) Demand ischemia of myocardium Code(s): I24.8 - OTHER FORMS OF ACUTE ISCHEMIC HEART DISEASE Status: Resolved - Plan old records reviewed/req, continue antibiotics Consults: Palliative Care Continue vancomycin Prognosis poor Transfuse 1 unit of platelet If patient condition deteriorates then will consider hospice Palliative care on the case Medication reviewed noncontributory symptomatic and supportive care
--- NOTE | 2020-06-18 13:28 | PDOC.CPN ---
- Subjective Date: 06/18/20 Time: 13:27 Interval history: Remains minimally verbal. - Review of Systems ROS unobtainable: due to mental status - Objective Allergies/Adverse Reactions: Allergies Allergy/AdvReac Type Severity Reaction Status Date / Time No Known Allergies Allergy Verified 06/12/20 07:28 Visit Medications: Current Medications Acetaminophen (Acetaminophen 325 Mg Tab) 650 mg PO Q6H PRN PRN Reason: Fever > 101 Last Admin: 06/18/20 09:52 Dose: 650 mg Documented by: Acetaminophen (Acetaminophen 650 Mg Suppository) 650 mg [place] Q6H PRN PRN Reason: Fever Last Admin: 06/15/20 04:58 Dose: 650 mg Documented by: Hydrocodone Bitart/Acetaminophen (Hydrocodone/Acetaminophen 5/325 Mg Tablet) 1 tab PO Q4H PRN PRN Reason: Moderate Pain (4-6) Last Admin: 06/18/20 10:15 Dose: 1 tab Documented by: Albuterol/Ipratropium (Ipratropium/Albuterol Sulfate 3 Ml Neb) 3 ml NEB [id number] [facility] Last Admin: 06/18/20 07:30 Dose: 3 ml Documented by: Bisacodyl (Bisacodyl 10 Mg Supp) 10 mg NH DAILYPRN PRN PRN Reason: Constipation Bupropion HCl (Bupropion 150 Mg Sr Tab) 150 mg PO BID [facility] Last Admin: 06/18/20 09:52 Dose: 150 mg Documented by: Carvedilol (Carvedilol 3.125 Mg Tab) 3.125 mg PO BID [facility] Last Admin: 06/18/20 09:52 Dose: 3.125 mg Documented by: Dextrose/Water (Dextrose 50% Abboject 50 Ml Syringe) 25 gm SLOW IVP PRN PRN PRN Reason: Hypoglycemia Glucagon (Glucagon 1 Mg/Ml Vial) 1 mg IM PRN PRN PRN Reason: Hypoglycemia Guaifenesin (Guaifenesin Sf Soln 200 Mg/10 Ml Udcup) 200 mg PO Q4H PRN PRN Reason: Cough Guaifenesin/Dextromethorphan (Guaifenesin Dm 100-10/5 Ml Udcup) 15 ml PO Q4H PRN PRN Reason: Cough Hydralazine HCl (Hydralazine 20 Mg/Ml Vial) 10 mg SLOW IVP Q4H PRN PRN Reason: SBP > 180 and HR < 70 Dextrose/Water (D5w) 1,000 mls @ 0 mls/hr IV .Q0M PRN PRN Reason: Hypoglycemia Insulin Glargine 40 units/ (Miscellaneous Medication) 0.4 mls @ 0 mls/hr SC BID [facility] Last Admin: 06/18/20 10:09 Dose: 0.4 mls Documented by: Vancomycin HCl 1.25 gm/ Device 250 mls @ 166.667 mls/hr IVPB 1700 [facility] Last Admin: 06/17/20 17:29 Dose: 250 mls Documented by: Dextrose/Water (D5w) 1,000 mls @ 50 mls/hr IV .Q20H [facility] Last Admin: 06/18/20 10:02 Dose: 1,000 mls Documented by: Potassium Chloride 40 meq/ (Dextrose/Water) 1,020 mls @ 125 mls/hr IV .Q8H10M [facility] Last Admin: 06/18/20 10:03 Dose: 1,020 mls Documented by: Insulin Human Lispro (Humalog 300 Units/3 Ml Vial) 0 units SC .AGGRESSIVE SLIDING PRN PRN Reason: Aggressive Correctional Scale Last Admin: 06/17/20 06:35 Dose: 6 unit Documented by: Insulin Human Lispro (Humalog 300 Units/3 Ml Vial) 0 units SC .BEDTIME SLIDING SC PRN; Protocol PRN Reason: BEDTIME SLIDING SCALE Last Admin: 06/17/20 01:40 Dose: 4 unit Documented by: Lactulose (Lactulose 20 Gm/30 Ml Udcup) 20 gm PO DAILYPRN PRN PRN Reason: Constipation Loperamide HCl (Loperamide Hcl 2 Mg Cap) 2 mg PO PRN PRN PRN Reason: Diarrhea/Loose Stools Loratadine (Loratadine 10 Mg Tab) 10 mg PO DAILYPRN PRN PRN Reason: Sinus Symptoms Miscellaneous Medication (Pharmacy To Dose Vancomycin) 1 each IVPB PRN PRN PRN Reason: Pharmacy to dose Nicotine (Nicotine 21 Mg Patch) 21 mg TD Q24HR [facility] Last Admin: 06/17/20 23:04 Dose: 21 mg Documented by: Ondansetron HCl (Ondansetron Pf 4 Mg/2 Ml Vial) 4 mg IVP Q6H PRN PRN Reason: Nausea/Vomiting Ondansetron HCl (Ondansetron Odt 4 Mg Tab) 4 mg PO Q6H PRN PRN Reason: Nausea/Vomiting Pantoprazole Sodium (Pantoprazole 40 Mg Granules Packet) 40 mg PO DAILY [facility] Last Admin: 06/18/20 09:52 Dose: 40 mg Documented by: Senna/Docusate Sodium (Senokot S 8.6-50 Mg Tab) 2 tab PO BIDPRN PRN PRN Reason: Constipation Sodium Chloride (Flush - Normal Saline 10 Ml Syringe) 10 ml IVF Q12HR [facility] Last Admin: 06/18/20 09:57 Dose: 10 ml Documented by: Sodium Chloride (Flush - Normal Saline 10 Ml Syringe) 10 ml IVF PRN PRN PRN Reason: Saline Flush Sodium Chloride (Sodium Chloride 0.65% Nasal 44 Ml Bot) 0 ml EA NARE QIDPRN PRN PRN Reason: Nasal Congestion Throat Lozenges (Cepastat Lozenges 1 Jennifer) 1 jennifer PO Q2H PRN PRN Reason: Sore Throat Tramadol HCl (Tramadol Hcl 50 Mg Tab) 50 mg PO Q6H PRN PRN Reason: Mild-Moderate Pain (1-5) Trazodone HCl (Trazodone Hcl 50 Mg Tab) 100 mg PO HS [facility] Last Admin: 06/17/20 21:58 Dose: 100 mg Documented by: Vital Signs & Weight: Vital Signs Temp Pulse Pulse Pulse Resp BP BP 06/18/20 12:40 98.3 F 78 26 H 119/59 L 06/18/20 12:24 98.3 F 78 26 H 107/69 06/18/20 12:09 98.1 F 78 28 H 109/35 L 06/18/20 12:00 82 32 H 06/18/20 09:26 63 103/44 L 06/18/20 07:30 98.6 F 73 20 06/18/20 04:45 98.4 F 77 24 H BP BP Pulse Ox 06/18/20 12:40 95 06/18/20 12:24 94 L 06/18/20 12:09 94 L 06/18/20 12:00 111/39 L 95 06/18/20 09:26 06/18/20 07:30 148/39 H 96 06/18/20 04:45 126/57 L 94 L Admit Weight 194 lb Weight 194 lb 1.6 oz - Physical Exam HEENT: normocephaly Neck: supple neck Cardiac: audible murmur Lungs: normal breath sounds Abdomen: active bowel sounds Extremities: no edema Skin: clear - Labs Result Diagrams: 06/18/20 05:01 06/18/20 05:01 Troponin/CKMB CK-MB (CK-2) 6.8 ng/mL (0-6.6) H* 06/11/20 19:49 Troponin I 0.778 ng/mL (< 0.028) H* 06/12/20 06:31 - Telemetry Sinus rhythms and dysrhythmias: sinus rhythm - Assessment/Plan Assessment/Plan: 1. 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 MRSA bacteremia 4. 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 CODY on CKD PLAN: - Abx per primary team - Few choices, not surgical candidate, would not survive surgery required for both aortic and mitral valve involvement from endocarditis. - Severely ill and would not be unexpected.
[2020-06-18] MEDS: VANCOMYCIN 1.25 GM/250 ML BAG 1.25 GM in Premix Bag 1 BAG IVPB SCH (17:43)
[2020-06-18 18:04] LABS: Vancomycin, Trough 22.9 ug/mL
[2020-06-18 18:05] LABS: Anion Gap 14 mmol/L (10-20); BUN (Urea Nitrogen) 84 mg/dL (8.4-25.7); Calc. Creatinine Clearance 40 mL/min (70-130); Calcium 6.6 mg/dL (7.8-10.44); Carbon Dioxide 19 mmol/L (23-31); Glucose 62 mg/dL (83-110); Potassium 3.1 mmol/L (3.5-5.1); Sodium 157 mmol/L (136-145)
[2020-06-18 18:36] LABS: Chloride 127 mmol/L (98-107)
[2020-06-18] MEDS ORDERED: Morphine 2 MG/ML VIAL SLOW IVP SCH ×2 (20:30→22:30)
[2020-06-18] MEDS: Albumin 25% 25 GM/100 ML BOT IVPB SCH (20:43)
[2020-06-18] MEDS: traZODone HCl 50 MG TAB PO SCH (21:07)
[2020-06-18] MEDS ORDERED: Morphine 2 MG/ML VIAL SLOW IVP PRN (22:22)
[2020-06-18] MEDS: Nicotine 21 MG PATCH TD SCH (22:49)
[2020-06-19] MEDS: Albumin 25% 25 GM/100 ML BOT IVPB SCH ×3 (04:18→15:01)
[2020-06-19] MEDS: HYDROcodone/Acetaminophen 5/325 mg Tablet PO PRN (04:18)
[2020-06-19] MEDS: Potassium Chloride 40 MEQ in Dextrose 5% in Water 1,000 ML IV SCH ×2 (04:18→10:29)
[2020-06-19 04:30] LABS: INR-International Normal Ratio 1.3; Prothrombin Time 16.7 sec (12.0-14.7)
[2020-06-19 04:34] LABS: Hemoglobin 7.4 g/dL (14.0-18.0); Mean Corpuscular HGB CONC 32.7 g/dL (32.0-36.0); Mean Corpuscular Hemoglobin 32.3 pg (27.0-31.0); Mean Corpuscular Volume 98.8 fL (78.0-98.0); Mean Platelet Volume 13.8 fL (7.4-10.4); Platelet Count 29 thou/uL (130-400); RBC Distribution Width 16.2 % (11.5-14.5); Red Blood Cell (RBC) Count 2.28 mill/uL (4.70-6.10); White Blood Cell (WBC) Count 8.7 thou/uL (4.8-10.8)
[2020-06-19 04:37] LABS: ALT (SGPT) 35 U/L (8-55); AST (SGOT) 29 U/L (5-34); Albumin 1.8 g/dL (3.4-4.8); Alkaline Phosphatase 132 U/L (40-110); Anion Gap 12 mmol/L (10-20); BUN (Urea Nitrogen) 76 mg/dL (8.4-25.7); Bilirubin, Total 2.4 mg/dL (0.2-1.2); Calc. Creatinine Clearance 40 mL/min (70-130); Calcium 6.6 mg/dL (7.8-10.44); Carbon Dioxide 19 mmol/L (23-31); Globulin 3.3 g/dL (2.4-3.5); Glucose 177 mg/dL (83-110); Potassium 3.3 mmol/L (3.5-5.1); Protein, Total 5.1 g/dL (5.8-8.1); Sodium 156 mmol/L (136-145)
[2020-06-19 04:44] LABS: Chloride 128 mmol/L (98-107)
[2020-06-19 05:15] LABS: #Lymphocytes 0.8 thou/uL (1.20-3.40); #Monocytes 0.5 thou/uL (0.11-0.59); #Neutrophils 7.4 thou/uL (1.40-6.50); %Eosinophils 0.1 % (0.0-10.0); %Lymphocytes 9.3 % (21.0-51.0); %Monocytes 5.6 % (0.0-10.0); MDiff Complete? YES; Platelet Morphology Comment Appears Decreased; Schistocytes SLIGHT = 2-5 cells (100X) (0-1/hpf)
[2020-06-19] MEDS ORDERED: Morphine 2 MG/ML VIAL SLOW IVP SCH (05:45)
[2020-06-19 07:37] LABS: Troponin I 0.916 ng/mL (< 0.028)
--- NOTE | 2020-06-19 07:52 | PRG ---
DATE OF SERVICE: 06/18/2020 SUBJECTIVE: The patient is seen and examined, not doing well, not able to interact. PHYSICAL EXAMINATION: HEENT: . CARDIOVASCULAR: First and second heart sounds were heard. RESPIRATORY: Clear to auscultation. DIGESTIVE: Revealed a benign abdomen. EXTREMITIES: Shows some peripheral edema. LABORATORY INVESTIGATION: IMPRESSION: 1. Hypernatremia in the context of . 2. Generalized anasarca in the context of severe hypoalbuminemia. 3. Acute kidney injury, possibly related to intravascular depletion in the context of low oncotic pressure due to hypoalbuminemia. 4. Failure to thrive. 5. Mild hypokalemia with mild metabolic acidosis. PLAN: 1. Increase the free water of this patient from 125-150 mL/h. 2. Renally dose all medications. 3. Replete potassium. 4. Further management and treatment to be dependent on the clinical course. The code status of this patient does not look good. Job ID: [id number]
[2020-06-19] MEDS: Pantoprazole 40 MG GRANULES PACKET PO SCH (09:59)
[2020-06-19] MEDS: Bupropion 150 MG SR TAB PO SCH (10:13)
[2020-06-19] MEDS: Carvedilol 3.125 MG TAB PO SCH (10:21)
[2020-06-19] MEDS ORDERED: Morphine 2 MG/ML VIAL SLOW IVP PRN (10:54)
--- NOTE | 2020-06-19 10:57 | PDOC.HOSPP ---
- Subjective Encounter Date: 06/19/20 Encounter Time: 07:40 Subjective: Patient is completely disoriented, he cannot take anything by mouth, - Objective Vital Signs & Weight: Vital Signs (12 hours) Temp Pulse Resp BP BP Pulse Ox 06/19/20 08:07 98.7 F 61 24 H 110/45 L 93 L 06/19/20 06:28 80 20 06/19/20 03:45 98.2 F 88 32 H 141/85 H 91 L 06/19/20 01:29 95 06/19/20 00:00 99.1 F 75 32 H 137/55 L 92 L Weight Admit Weight 194 lb Weight 194 lb 1.6 oz Most Recent Monitor Data Heart Rate from ECG 81 NIBP 127/56 NIBP BP-Mean 79 Respiration from ECG 32 SpO2 96 I&O: 06/18/20 06/19/20 06/20/20 06:59 06:59 06:59 Intake Total 1380 Output Total 450 1250 Balance -450 130 Result Diagrams: 06/19/20 04:02 06/19/20 04:02 Additional Labs: Accuchecks 06/19/20 06/19/20 06/18/20 10:47 05:52 23:50 POC Glucose 213 H 160 H 146 H 06/18/20 06/18/20 06/18/20 19:58 17:14 14:21 POC Glucose 83 61 L 85 06/18/20 11:04 POC Glucose 77 EKG Reviewed by me: Yes Hospitalist ROS - Review of Systems ROS unobtainable: due to mental status - Medication Medications: Active Medications Generic Name Dose Route Start Last Admin Trade Name Scott PRN Reason Stop Dose Admin Acetaminophen 650 mg 06/11/20 22:47 06/18/20 09:52 Acetaminophen 325 Mg Tab PO 650 mg Q6H PRN Administration Fever > 101 Acetaminophen 650 mg 06/12/20 02:33 06/15/20 04:58 Acetaminophen 650 Mg Suppository [place] 650 mg Q6H PRN Administration Fever Hydrocodone Bitart/Acetaminophen 1 tab 06/11/20 22:51 06/19/20 04:18 Hydrocodone/Acetaminophen 5/325 Mg Tablet PO 1 tab Q4H PRN Administration Moderate Pain (4-6) Albumin Human 25 gm 06/18/20 21:00 06/19/20 04:18 Albumin 25% 25 Gm/100 Ml Bot IVPB 06/19/20 21:01 25 gm 0300,0900,1500,2100 MICHAELA Administration Albuterol/Ipratropium 3 ml 06/12/20 01:00 06/19/20 06:28 Ipratropium/Albuterol Sulfate 3 Ml Neb NEB 3 ml [id number] MICHAELA Administration Carvedilol 3.125 mg 06/17/20 21:00 06/18/20 21:07 Carvedilol 3.125 Mg Tab PO 3.125 mg BID MICHAELA Administration Potassium Chloride 40 meq/ 1,020 mls @ 150 mls/hr 06/18/20 21:00 06/19/20 04:18 Dextrose/Water IV 1,020 mls .Q6H48M MICHAELA Administration Insulin Human Lispro 0 units 06/12/20 10:20 06/17/20 06:35 Humalog 300 Units/3 Ml Vial SC 6 unit .AGGRESSIVE SLIDING PRN Administration Aggressive Correctional Scale Insulin Human Lispro 0 units 06/17/20 01:45 06/17/20 01:40 Humalog 300 Units/3 Ml Vial SC 4 unit .BEDTIME SLIDING SC PRN Administration BEDTIME SLIDING SCALE Protocol Nicotine 21 mg 06/11/20 23:00 06/18/20 22:49 Nicotine 21 Mg Patch TD 21 mg Q24HR MICHAELA Administration Sodium Chloride 10 ml 06/12/20 09:00 06/18/20 20:45 Flush - Normal Saline 10 Ml Syringe IVF 10 ml Q12HR MICHAELA Administration Hospitalist Exam Vitals: Vital Signs (12 hours) Temp Pulse Resp BP BP Pulse Ox 06/19/20 08:07 98.7 F 61 24 H 110/45 L 93 L 06/19/20 06:28 80 20 06/19/20 03:45 98.2 F 88 32 H 141/85 H 91 L 06/19/20 01:29 95 06/19/20 00:00 99.1 F 75 32 H 137/55 L 92 L Weight Admit Weight 194 lb Weight 194 lb 1.6 oz Most Recent Monitor Data Heart Rate from ECG 81 NIBP 127/56 NIBP BP-Mean 79 Respiration from ECG 32 SpO2 96 General Appearance: ill appearing Eye: PERRL, anicteric sclera ENT: normocephalic atraumatic, no oropharyngeal lesions Neck: supple, symmetric, no JVD, no thyromegaly Heart: no gallops, no rubs, murmur present Respiratory: no wheezes, no rales, no ronchi Respiratory - other findings: Coarse breath sound Extremities - other findings: Gangrenous changes noted on the right foot Musculoskeletal: generalized weakness Psychiatric: not oriented, somnolent Hosp A/P (1) Infective endocarditis Code(s): I33.0 - ACUTE AND SUBACUTE INFECTIVE ENDOCARDITIS Status: Acute Qualifiers: Infective endocarditis organism: bacterial Chronicity: acute Qualified Code(s): I33.0 - Acute and subacute infective endocarditis (2) CVA (cerebral vascular accident) Code(s): I63.9 - CEREBRAL INFARCTION, UNSPECIFIED Status: Acute Qualifiers: CVA mechanism: other Qualified Code(s): I63.89 - Other cerebral infarction (3) Acute metabolic encephalopathy Code(s): G93.41 - METABOLIC ENCEPHALOPATHY Status: Acute (4) Bacteremia due to methicillin resistant Staphylococcus aureus Code(s): R78.81 - BACTEREMIA Status: Acute (5) Discitis of cervical region Code(s): M46.42 - DISCITIS, UNSPECIFIED, CERVICAL REGION Status: Acute (6) Discitis of lumbosacral region Code(s): M46.47 - DISCITIS, UNSPECIFIED, LUMBOSACRAL REGION Status: Acute (7) Gangrene of toe of right foot Code(s): I96 - GANGRENE, NOT ELSEWHERE CLASSIFIED Status: Acute (8) Osteomyelitis of toe of right foot Code(s): M86.9 - OSTEOMYELITIS, UNSPECIFIED Status: Acute (9) Sepsis with acute organ dysfunction Code(s): A41.9 - SEPSIS, UNSPECIFIED ORGANISM; R65.20 - SEVERE SEPSIS WITHOUT SEPTIC SHOCK Status: Acute Qualifiers: Sepsis type: methicillin resistant Staphylococcus aureus Severe sepsis acute organ dysfunction type: disseminated intravascular coagulopathy Severe sepsis shock status: without septic shock Qualified Code(s): A41.02 - Sepsis due to Methicillin resistant Staphylococcus aureus; R65.20 - Severe sepsis without septic shock; D65 - Disseminated intravascular coagulation [defibrination syndrome] (10) Splenic infarct Code(s): D73.5 - INFARCTION OF SPLEEN Status: Acute (11) Alcoholic cirrhosis of liver Code(s): K70.30 - ALCOHOLIC CIRRHOSIS OF LIVER WITHOUT ASCITES Status: Chronic Qualifiers: Ascites presence: without ascites Qualified Code(s): K70.30 - Alcoholic cirrhosis of liver without ascites (12) Anxiety and depression Code(s): F41.9 - ANXIETY DISORDER, UNSPECIFIED; F32.9 - MAJOR DEPRESSIVE DISORDER, SINGLE EPISODE, UNSPECIFIED Status: Chronic (13) Aortic stenosis Code(s): I35.0 - NONRHEUMATIC AORTIC (VALVE) STENOSIS Status: Chronic (14) CAD (coronary artery disease) Code(s): I25.10 - ATHSCL HEART DISEASE OF [place] CORONARY ARTERY W/O ANG PCTRS Status: Chronic Qualifiers: Coronary Disease-Associated Artery/Lesion type: [place] artery [place] vs. transplanted heart: [place] heart Associated angina: without angina Qualified Code(s): I25.10 - Atherosclerotic heart disease of [place] coronary artery without angina pectoris (15) COPD (chronic obstructive pulmonary disease) Status: Chronic Qualifiers: COPD type: unspecified COPD Qualified Code(s): J44.9 - Chronic obstructive pulmonary disease, unspecified (16) Chronic combined systolic and diastolic CHF (congestive heart failure) Code(s): I50.42 - CHRONIC COMBINED SYSTOLIC AND DIASTOLIC HRT FAIL Status: Chronic (17) DM type 2 (diabetes mellitus, type 2) Status: Chronic Qualifiers: Diabetes mellitus mcfp insulin use: with mcfp use Diabetes mellitus complication status: with hyperglycemia Qualified Code(s): E11.65 - Type 2 diabetes mellitus with hyperglycemia; Z79.4 - terminal operations manager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 (18) Dyslipidemia Code(s): E78.5 - HYPERLIPIDEMIA, UNSPECIFIED Status: Chronic (19) GERD (gastroesophageal reflux disease) Code(s): K21.9 - GASTRO-ESOPHAGEAL REFLUX DISEASE WITHOUT ESOPHAGITIS Status: Chronic Qualifiers: Esophagitis presence: esophagitis presence not specified Qualified Code(s): K21.9 - Gastro-esophageal reflux disease without esophagitis (20) HTN (hypertension) Code(s): I10 - ESSENTIAL (PRIMARY) HYPERTENSION Status: Chronic Qualifiers: Hypertension type: essential hypertension Qualified Code(s): I10 - Essential (primary) hypertension (21) Hypothyroidism Code(s): E03.9 - HYPOTHYROIDISM, UNSPECIFIED Status: Chronic Qualifiers: Hypothyroidism type: unspecified Qualified Code(s): E03.9 - Hypothyroidism, unspecified (22) PVD (peripheral vascular disease) Code(s): I73.9 - PERIPHERAL VASCULAR DISEASE, UNSPECIFIED Status: Chronic (23) Protein-calorie malnutrition, moderate Code(s): E44.0 - MODERATE PROTEIN-CALORIE MALNUTRITION Status: Chronic (24) Thrombocytopenia Code(s): D69.6 - THROMBOCYTOPENIA, UNSPECIFIED Status: Chronic (25) Tobacco abuse Code(s): Z72.0 - TOBACCO USE Status: Chronic (26) h/o tavr Status: Chronic (27) Demand ischemia of myocardium Code(s): I24.8 - OTHER FORMS OF ACUTE ISCHEMIC HEART DISEASE Status: Acute - Plan old records reviewed/req, plan discussed w/ family, continue antibiotics, mental health social worker I spoke with the patient's son Hosea on his phone #[phone] and updated about patient's current condition, Patient condition every day deteriorating, his survival is unexpected, He agreed with hospice I have consulted case management for hospice inpatient, Patient son is coming to town tomorrow We will discontinue long-acting insulin because he is not able to take anything by mouth, Meanwhile we will continue provide symptomatic and supportive care His is not unexpected
[2020-06-19 11:55] VITALS: TEMP 98.8
[2020-06-19] MEDS: Insulin Glargine 40 UNITS in Pre-Filled Syringe 1 EACH SC SCH (12:03)
[2020-06-19 12:54] VITALS: BP 114/50
--- NOTE | 2020-06-19 13:42 | PDOC.NEUPN ---
- Subjective Encounter Date: 06/19/20 Subjective: Mr. Cruz is extremely somnolent and is not doing well. He was found to have infective endocarditis and is not a candidate for surgery because of multiple Covid morbidities and severe thrombocytopenia. - Objective Vital Signs & Weight: Vital Signs (12 hours) Temp Pulse Resp BP BP Pulse Ox 06/19/20 13:00 80 16 06/19/20 12:26 114/50 L 06/19/20 11:50 98.8 F 42 L 24 H 96/47 L 92 L 06/19/20 08:07 98.7 F 61 24 H 110/45 L 93 L 06/19/20 07:35 93 L 06/19/20 06:28 80 20 06/19/20 03:45 98.2 F 88 32 H 141/85 H 91 L Weight Admit Weight 194 lb Weight 194 lb 1.6 oz Most Recent Monitor Data Heart Rate from ECG 81 NIBP 127/56 NIBP BP-Mean 79 Respiration from ECG 32 SpO2 96 I&O: 06/18/20 06/19/20 06/20/20 06:59 06:59 06:59 Intake Total 1380 Output Total 450 1250 Balance -450 130 Result Diagrams: 06/19/20 04:02 06/19/20 04:02 Additional Labs: Accuchecks 06/19/20 06/19/20 06/18/20 10:47 05:52 23:50 POC Glucose 213 H 160 H 146 H 06/18/20 06/18/20 06/18/20 19:58 17:14 14:21 POC Glucose 83 61 L 85 Radiology Reviewed by me: Yes EKG Reviewed by me: Yes ROS - Review of Systems ROS unobtainable: due to mental status - Medication Medications: Active Medications Generic Name Dose Route Start Last Admin Trade Name Freq PRN Reason Stop Dose Admin Acetaminophen 650 mg 06/11/20 22:47 06/18/20 09:52 Acetaminophen 325 Mg Tab PO 650 mg Q6H PRN Administration Fever > 101 Acetaminophen 650 mg 06/12/20 02:33 06/15/20 04:58 Acetaminophen 650 Mg Suppository [place] 650 mg Q6H PRN Administration Fever Hydrocodone Bitart/Acetaminophen 1 tab 06/11/20 22:51 06/19/20 04:18 Hydrocodone/Acetaminophen 5/325 Mg Tablet PO 1 tab Q4H PRN Administration Moderate Pain (4-6) Albumin Human 25 gm 06/18/20 21:00 06/19/20 10:03 Albumin 25% 25 Gm/100 Ml Bot IVPB 06/19/20 21:01 25 gm 0300,0900,1500,2100 MICHAELA Administration Albuterol/Ipratropium 3 ml 06/12/20 01:00 06/19/20 13:00 Ipratropium/Albuterol Sulfate 3 Ml Neb NEB 3 ml Q4MO-MZ MICHAELA Administration Carvedilol 3.125 mg 06/17/20 21:00 06/19/20 10:21 Carvedilol 3.125 Mg Tab PO Not Given BID MICHAELA Potassium Chloride 40 meq/ 1,020 mls @ 150 mls/hr 06/18/20 21:00 06/19/20 10:29 Dextrose/Water IV 1,020 mls .Q6H48M MICHAELA Administration Insulin Human Lispro 0 units 06/12/20 10:20 06/17/20 06:35 Humalog 300 Units/3 Ml Vial SC 6 unit .AGGRESSIVE SLIDING PRN Administration Aggressive Correctional Scale Insulin Human Lispro 0 units 06/17/20 01:45 06/17/20 01:40 Humalog 300 Units/3 Ml Vial SC 4 unit .BEDTIME SLIDING SC PRN Administration BEDTIME SLIDING SCALE Protocol Nicotine 21 mg 06/11/20 23:00 06/18/20 22:49 Nicotine 21 Mg Patch TD 21 mg Q24HR MICHAELA Administration Sodium Chloride 10 ml 06/12/20 09:00 06/19/20 10:14 Flush - Normal Saline 10 Ml Syringe IVF 10 ml Q12HR MICHAELA Administration - Exam General Appearance: ill appearing Eye: PERRL ENT: normocephalic atraumatic Neck: supple Respiratory: tachypneic Cardiovascular: no murmur Gastrointestinal: soft Extremities: no cyanosis Skin: normal turgor Neurological: no new deficit Musculoskeletal: no muscle wasting PSYCH: not oriented, somnolent, lethargic Results - Labs Result Diagrams: 06/19/20 04:02 06/19/20 04:02 Lab results: WBC 8.7 thou/uL (4.8-10.8) 06/19/20 04:02 Hgb 7.4 g/dL (14.0-18.0) L 06/19/20 04:02 Hct 22.5 % (42.0-52.0) L 06/19/20 04:02 MCV 98.8 fL (78.0-98.0) H 06/19/20 04:02 Plt Count 29 thou/uL (130-400) L* 06/19/20 04:02 Neutrophils % 85.0 % (42.0-75.0) H 06/19/20 04:02 Band Neuts % (Manual) 26 % (5-11) H 06/17/20 05:30 Sodium 156 mmol/L (136-145) H 06/19/20 04:02 Potassium 3.3 mmol/L (3.5-5.1) L 06/19/20 04:02 Chloride 128 mmol/L (98-107) H* 06/19/20 04:02 Carbon Dioxide 19 mmol/L (23-31) L 06/19/20 04:02 BUN 76 mg/dL (8.4-25.7) H 06/19/20 04:02 Creatinine 2.00 mg/dL (0.7-1.3) H 06/19/20 04:02 Glucose 177 mg/dL (83-110) H 06/19/20 04:02 Calcium 6.6 mg/dL (7.8-10.44) L 06/19/20 04:02 Total Bilirubin 2.4 mg/dL (0.2-1.2) H 06/19/20 04:02 AST 29 U/L (5-34) 06/19/20 04:02 ALT 35 U/L (8-55) 06/19/20 04:02 Alkaline Phosphatase 132 U/L (40-110) H 06/19/20 04:02 Ammonia 30 umol/L (18-72) 06/19/20 04:02 CK-MB (CK-2) 6.8 ng/mL (0-6.6) H* 06/11/20 19:49 Troponin I 0.916 ng/mL (< 0.028) H* 06/19/20 06:32 B-Natriuretic Peptide 1282.0 pg/mL (0-100) H 06/12/20 08:12 Serum Total Protein 5.1 g/dL (5.8-8.1) L 06/19/20 04:02 Albumin 1.8 g/dL (3.4-4.8) L 06/19/20 04:02 Lipase 21 U/L (8-78) 06/11/20 19:49 Urine Ketones Negative mg/dL (Negative) 06/11/20 20:10 Urine Blood 2+ (Negative) A 06/11/20 20:10 Urine Nitrite Negative (Negative) 06/11/20 20:10 Ur Leukocyte Esterase Negative Nancy/uL (Negative) 06/11/20 20:10 Urine RBC Greater than 50 HPF (0-3) A 06/11/20 20:10 Urine WBC 0-3 HPF (0-3) 06/11/20 20:10 Ur Squamous Epith Cells 0-3 HPF (0-3) 06/11/20 20:10 Urine Bacteria None Seen HPF (None Seen) 06/11/20 20:10 - Radiology Interpretation MRI - head Additional Comment: MRI of the head showed multiple cardioembolic infarcts in both right and left cerebral hemisphere and also in the cerebellar hemispheres PN A/P (1) CVA (cerebral vascular accident) Code(s): I63.9 - CEREBRAL INFARCTION, UNSPECIFIED Status: Acute Qualifiers: CVA mechanism: other Qualified Code(s): I63.89 - Other cerebral infarction (2) Acute kidney injury Code(s): N17.9 - ACUTE KIDNEY FAILURE, UNSPECIFIED Status: Acute (3) DKA, type 1 Code(s): E10.10 - TYPE 1 DIABETES MELLITUS WITH KETOACIDOSIS WITHOUT COMA Status: Resolved Qualifiers: Diabetes mellitus complication detail: without coma Qualified Code(s): E10.10 - Type 1 diabetes mellitus with ketoacidosis without coma (4) Acute blood loss anemia Code(s): D62 - ACUTE POSTHEMORRHAGIC ANEMIA Status: Acute (5) Acute metabolic encephalopathy Code(s): G93.41 - METABOLIC ENCEPHALOPATHY Status: Acute (6) Atrial fibrillation with rapid ventricular response Code(s): I48.91 - UNSPECIFIED ATRIAL FIBRILLATION Status: Acute (7) Bacteremia due to methicillin resistant Staphylococcus aureus Code(s): R78.81 - BACTEREMIA Status: Acute (8) Dehydration Code(s): E86.0 - DEHYDRATION Status: Acute (9) History of aortic valve replacement Code(s): Z95.2 - PRESENCE OF PROSTHETIC HEART VALVE Status: Acute (10) Hypokalemia Code(s): E87.6 - HYPOKALEMIA Status: Acute (11) Hypotension Status: Acute (12) Liane-Goddard tear Code(s): K22.6 - GASTRO-ESOPHAGEAL LACERATION-HEMORRHAGE SYNDROME Status: Acu te - Plan Daily Plan: continue antibiotics, PT/OT, speech therapy, DVT proph w/SCDs Mr. Cruz consulted for altered mental status. AMS seems multifactorial due to metabolic- DKA, infectious - MRSA bacteremia and intracranial pathology since MRI Brain is positive for acute infarctions , most likely septic emboli due to MRSA bacteremia. [place] completed which was positive. He was found to have mitral valve endocarditis and also TAVR with endocarditis in the setting of MRSA bacteremia and is not a candidate for surgery. Cardiology is on board. Patient not doing well and extremely somnolent and lethargic. He does not follow commands but grimaces to noxious stimuli. Prognosis poor. Continues to have severe thrombocytopenia MRI Brain positive for acute infarctions in both right and left cerebral hemispheres. 2D Echo showed LVEF 50-55%. Continue Telemetry to monitor for arrythmias. Neurochecks every 4 hours. EEG reviewed which was negative for seizure activity Strict control of blood pressure and blood glucose N.p.o. because of increased somnolence and should be reevaluated by speech. PT/OT/Speech DVT prophylaxis with SCD's. Palliative care team on board Avoid antiplatelets and anticoagulants due to thrombocytopenia. Platelet count 2 9. Continue medical management per primary team. Plan discussed in detail with the nursing staff
[2020-06-19] MEDS ORDERED: Vancomycin 1 GM in Premix Bag 1 BAG IVPB SCH (17:00)
--- NOTE | 2020-06-20 12:20 | PDOC.DS.DS ---
Provider Date of Admission: 06/11/20 22:27 Date of Discharge: 06/19/20 Admitting Provider: Nikc Alex MD Consultations: Cardiology, Infectious Disease, Nephrology, Neurology, Pulmonary Primary Care Physician: [facility] Hospital Course: Patient was admitted on June 11, 2020, on admission chest x-ray was unremarkable, patient had MRI under anesthesia, patient had CT brain which showed new area of hypodensity in left frontal region suspicious for acute infarction, MRI brain showed numerous new area of acute infarction suspected for embolic phenomenon, patient had echocardiography which showed EF 50 to 55%, bioprosthetic valve is porcine type, patient had MRI thoracic lumbar and cervical spine which showed limited examination of the cervical spine because of movement, patient had transthoracic echocardiography which showed suspected finding of endocarditis, During this admission patient had a positive blood culture all the time including urine culture positive, patient had valvular dysfunction and he became bradycardic, patient was DNR, we discussed with the patient's son about her goal of care and he expressed his wish to keep him DNR, multispecialty was following while in hospital including nephrology, infectious disease, cardiology, neurology, pulmonology, his prognosis was very poor, despite aggressive treatment with antibiotic therapy his condition did not improve, patient at 1342 Primary cause of #1 severe sepsis due to methicillin-resistant Staphylococcus aureus #2 Embolic stroke 3. Infective endocarditis 4. Non-ST elevation myocardial infarction Contributing diagnosis #1 chronic obstructive pulmonary disease 2. Combined systolic and diastolic heart failure 3. Atrial fibrillation 4. Acute metabolic encephalopathy 5. Cirrhosis of liver Time of 13: 42 PM Resuscitation Status: 06/13/20 13:49 Resuscitation Status Routine Resuscitation Status: DNAR: NO Resuscitation Discussed with: oldest son Hosea Cruz Additional comments: youngest son in senior living out of state and his name is [place]: Surrogate decision maker is Hosea Cruz and he lives in [place]. Lab Results: 06/19/20 04:02 06/19/20 04:02 Abnormal Lab Results - Last 48 hrs 06/18/20 17:39: Sodium 157 H, Potassium 3.1 L, Chloride 127 H*, Carbon Dioxide 19 L, BUN 84 H, Creatinine 1.99 H, Calcium 6.6 L 06/19/20 04:02: PT 16.7 H 06/19/20 04:02: RBC 2.28 L, Hgb 7.4 L, Hct 22.5 L, MCV 98.8 H, MCH 32.3 H, RDW 16.2 H, Plt Count 29 L*, MPV 13.8 H, Neutrophils % 85.0 H, Lymphocytes % 9.3 L, Neutrophils # 7.4 H, Lymphocytes # 0.8 L, Plt Morphology Comment Appears Decreased L 06/19/20 04:02: Sodium 156 H, Potassium 3.3 L, Chloride 128 H*, Carbon Dioxide 19 L, BUN 76 H, Creatinine 2.00 H, Calcium 6.6 L, Total Bilirubin 2.4 H, Alkaline Phosphatase 132 H, Serum Total Protein 5.1 L, Albumin 1.8 L, Albumin/Globulin Ratio 0.5 L 06/19/20 06:32: Troponin I 0.916 H* Microbiology - Entire Visit 06/16/20 14:01 Venous blood - Left Hand Blood Culture - Final Methicillin resistant S.aureus 06/18/20 20:16 Stool C. difficile GDH Antigen & Toxins - Final 06/16/20 13:43 Venous blood - Left Hand Blood Culture - Preliminary NO GROWTH AT 48 HOURS 06/12/20 09:27 Venous blood - Left Hand Blood Culture - Final Staphylococcus aureus 06/12/20 09:27 Venous blood - Right Hand Blood Culture - Final Methicillin resistant S.aureus 06/11/20 19:49 Venous blood - Left Hand Blood Culture - Final Methicillin resistant S.aureus 06/11/20 19:49 Venous blood - Left Arm Blood Culture - Final Methicillin resistant S.aureus 06/11/20 20:10 Urine Straight Catheter Urine Culture - Final Methicillin resistant S.aureus Vitals: Weight Admit Weight 194 lb Weight 194 lb 1.6 oz Most Recent Monitor Data Heart Rate from ECG 81 NIBP 127/56 NIBP BP-Mean 79 Respiration from ECG 32 SpO2 96 Physical Exam: The patient was seen and examined on the day of discharge. Please see my previous progress note for physical examination Patient was and was pronounced by charge nurse Problem Assessment: Patient is (1) Infective endocarditis Code(s): I33.0 - ACUTE AND SUBACUTE INFECTIVE ENDOCARDITIS Status: Acute Qualifiers: Infective endocarditis organism: bacterial Chronicity: acute Qualified Co de(s): I33.0 - Acute and subacute infective endocarditis (2) CVA (cerebral vascular accident) Code(s): I63.9 - CEREBRAL INFARCTION, UNSPECIFIED Status: Acute Qualifiers: CVA mechanism: other Qualified Code(s): I63.89 - Other cerebral infarction (3) Acute metabolic encephalopathy Code(s): G93.41 - METABOLIC ENCEPHALOPATHY Status: Acute (4) Bacteremia due to methicillin resistant Staphylococcus aureus Code(s): R78.81 - BACTEREMIA Status: Acute (5) Discitis of cervical region Code(s): M46.42 - DISCITIS, UNSPECIFIED, CERVICAL REGION Status: Acute (6) Discitis of lumbosacral region Code(s): M46.47 - DISCITIS, UNSPECIFIED, LUMBOSACRAL REGION Status: Acute (7) Gangrene of toe of right foot Code(s): I96 - GANGRENE, NOT ELSEWHERE CLASSIFIED Status: Acute (8) Osteomyelitis of toe of right foot Code(s): M86.9 - OSTEOMYELITIS, UNSPECIFIED Status: Acute (9) Sepsis with acute organ dysfunction Code(s): A41.9 - SEPSIS, UNSPECIFIED ORGANISM; R65.20 - SEVERE SEPSIS WITHOUT SEPTIC SHOCK Status: Acute Qualifiers: Sepsis type: methicillin resistant Staphylococcus aureus Severe sepsis acute organ dysfunction type: disseminated intravascular coagulopathy Severe sepsis shock status: without septic shock Qualified Code(s): A41.02 - Sepsis due to Methicillin resistant Staphylococcus aureus; R65.20 - Severe sepsis without septic shock; D65 - Disseminated intravascular coagulation [defibrination syndrome] (10) Splenic infarct Code(s): D73.5 - INFARCTION OF SPLEEN Status: Acute (11) Alcoholic cirrhosis of liver Code(s): K70.30 - ALCOHOLIC CIRRHOSIS OF LIVER WITHOUT ASCITES Status: Chronic Qualifiers: Ascites presence: without ascites Qualified Code(s): K70.30 - Alcoholic cirrhosis of liver without ascites (12) Anxiety and depression Code(s): F41.9 - ANXIETY DISORDER, UNSPECIFIED; F32.9 - MAJOR DEPRESSIVE DISORDER, SINGLE EPISODE, UNSPECIFIED Status: Chronic (13) Aortic stenosis Code(s): I35.0 - NONRHEUMATIC AORTIC (VALVE) STENOSIS Status: Chronic (14) CAD (coronary artery disease) Code(s): I25.10 - ATHSCL HEART DISEASE OF [place] CORONARY ARTERY W/O ANG PCTRS Status: Chronic Qualifiers: Coronary Disease-Associated Artery/Lesion type: [place] artery [place] vs. transplanted heart: [place] heart Associated angina: without angina Qualified Code(s): I25.10 - Atherosclerotic heart disease of [place] coronary artery without angina pectoris (15) COPD (chronic obstructive pulmonary disease) Status: Chronic Qualifiers: COPD type: unspecified COPD Qualified Code(s): J44.9 - Chronic obstructive pulmonary disease, unspecified (16) Chronic combined systolic and diastolic CHF (congestive heart failure) Code(s): I50.42 - CHRONIC COMBINED SYSTOLIC AND DIASTOLIC HRT FAIL Status: Chronic (17) DM type 2 (diabetes mellitus, type 2) Status: Chronic Qualifiers: Diabetes mellitus [employer] 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 Diabetes mellitus complication status: with hyperglycemia Qualified Code(s): E11.65 - Type 2 diabetes mellitus with hyperglycemia; Z79.4 - residential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 (18) Dyslipidemia Code(s): E78.5 - HYPERLIPIDEMIA, UNSPECIFIED Status: Chronic (19) GERD (gastroesophageal reflux disease) Code(s): K21.9 - GASTRO-ESOPHAGEAL REFLUX DISEASE WITHOUT ESOPHAGITIS Status: Chronic Qualifiers: Esophagitis presence: esophagitis presence not specified Qualified Code(s): K21.9 - Gastro-esophageal reflux disease without esophagitis (20) HTN (hypertension) Code(s): I10 - ESSENTIAL (PRIMARY) HYPERTENSION Status: Chronic Qualifiers: Hypertension type: essential hypertension Qualified Code(s): I10 - [place] (primary) hypertension (21) Hypothyroidism Code(s): E03.9 - HYPOTHYROIDISM, UNSPECIFIED Status: Chronic Qualifiers: Hypothyroidism type: unspecified Qualified Code(s): E03.9 - Hypothyroidism, unspecified (22) PVD (peripheral vascular disease) Code(s): I73.9 - PERIPHERAL VASCULAR DISEASE, UNSPECIFIED Status: Chronic (23) Protein-calorie malnutrition, moderate Code(s): E44.0 - MODERATE PROTEIN-CALORIE MALNUTRITION Status: Chronic (24) Thrombocytopenia Code(s): D69.6 - THROMBOCYTOPENIA, UNSPECIFIED Status: Chronic (25) Tobacco abuse Code(s): Z72.0 - TOBACCO USE Status: Chronic (26) h/o tavr Status: Chronic (27) Demand ischemia of myocardium Code(s): I24.8 - OTHER FORMS OF ACUTE ISCHEMIC HEART DISEASE Status: Acute Plan Allergies: No Known Allergies Allergy (Verified 06/12/20 07:28) Additional comments: Patient has been Referrals: [facility] [Primary Care Provider] - Disposition: Quality CORE MEASURES:: N/A
--- NOTE | 2020-06-21 22:32 | ECHO ---
INDICATION FOR PROCEDURE: A 75-year-old gentleman with history of multiple CVAs with what appeared to be embolization. 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 He was advised to undergo a transesophageal echocardiogram to rule out evidence of endocarditis. He was taken to the recovery area where he underwent short-acting propofol. The transesophageal probe was easily passed down the distal esophagus. IMPRESSION: 1. Mild decrease in left ventricular systolic function. 2. No evidence of left atrial or left atrial appendage thrombus. 3. Positive vegetations noted on the anterior mitral valve leaflet as well as what appears to be some on the posterior leaflets of the mitral valve with also vegetations noted on the aortic valve leaflets. This was a previously placed TAVR, and still functions. There was evidence of some very small perivalvular leakage. This most likely is due to the original placement of the valve. This was just perivalvular leakage from the TAVR. 4. Final impression is significant bacterial endocarditis, likely on the mitral as well as the aortic valve. Job ID: [id number]
== END 2020-06-19 15:37 | disposition expired | DRG 871 ==
LOC: ERS 19:05 → CCU 22:27 → 2SE 06-16 15:55
PROVIDERS: ADMIT Internal Medicine; ATTEND Internal Medicine
PROC: 30233R1 Transfusion of Nonautologous Platelets into Peripheral Vein, Percutaneous Approach (ICD-10-PCS; 2020-06-13)
PROC: 02HV33Z Insertion of Infusion Device into Superior Vena Cava, Percutaneous Approach (ICD-10-PCS; principal; 2020-06-17)
PROC: B548ZZA Ultrasonography of Superior Vena Cava, Guidance (ICD-10-PCS; 2020-06-17)
PROC: B24BZZ4 Ultrasonography of Heart with Aorta, Transesophageal (ICD-10-PCS; 2020-06-17)
DX: A41.02 Sepsis due to Methicillin resistant Staphylococcus aureus (principal); I21.4 Non-ST elevation (NSTEMI) myocardial infarction; E10.10 Type 1 diabetes mellitus with ketoacidosis without coma; G93.41 Metabolic encephalopathy; D65 Disseminated intravascular coagulation [defibrination syndrome]; I33.0 Acute and subacute infective endocarditis; K22.6 Gastro-esophageal laceration-hemorrhage syndrome; I63.443 Cerebral infarction due to embolism of bilateral cerebellar arteries; I63.49 Cerebral infarction due to embolism of other cerebral artery; J44.1 Chronic obstructive pulmonary disease with (acute) exacerbation; N17.9 Acute kidney failure, unspecified; I13.0 Hypertensive heart and chronic kidney disease with heart failure and stage 1 through stage 4 chronic kidney disease, or unspecified chronic kidney disease; G81.94 Hemiplegia, unspecified affecting left nondominant side; I50.42 Chronic combined systolic (congestive) and diastolic (congestive) heart failure; E44.0 Moderate protein-calorie malnutrition; E87.1 Hypo-osmolality and hyponatremia; D62 Acute posthemorrhagic anemia; E11.52 Type 2 diabetes mellitus with diabetic peripheral angiopathy with gangrene; I96 Gangrene, not elsewhere classified; I24.8 Other forms of acute ischemic heart disease; M86.171 Other acute osteomyelitis, right ankle and foot; R65.20 Severe sepsis without septic shock; Z66 Do not resuscitate; Z51.5 Encounter for palliative care; E87.6 Hypokalemia; I48.91 Unspecified atrial fibrillation; R62.7 Adult failure to thrive; Z20.822 Contact with and (suspected) exposure to COVID-19; F17.210 Nicotine dependence, cigarettes, uncomplicated; E03.9 Hypothyroidism, unspecified; E78.5 Hyperlipidemia, unspecified; I25.10 Atherosclerotic heart disease of native coronary artery without angina pectoris; F41.9 Anxiety disorder, unspecified; F32.9 Major depressive disorder, single episode, unspecified; K21.9 Gastro-esophageal reflux disease without esophagitis; K70.30 Alcoholic cirrhosis of liver without ascites; N18.9 Chronic kidney disease, unspecified; D53.9 Nutritional anemia, unspecified; M46.42 Discitis, unspecified, cervical region; E11.51 Type 2 diabetes mellitus with diabetic peripheral angiopathy without gangrene; E88.09 Other disorders of plasma-protein metabolism, not elsewhere classified; Z85.72 Personal history of non-Hodgkin lymphomas; Z79.899 Other long term (current) drug therapy; I25.2 Old myocardial infarction; Z79.01 Long term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 of anticoagulants; Z90.49 Acquired absence of other specified parts of digestive tract; Z89.431 Acquired absence of right foot; Z89.422 Acquired absence of other left toe(s); Z79.4 Long term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; Z68.26 Body mass index [BMI] 26.0-26.9, adult; Z79.51 Long term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 of inhaled steroids; Z79.2 Long term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 of antibiotics; Z95.2 Presence of prosthetic heart valve; E86.0 Dehydration; Z79.82 Long term (current) use of aspirin; D73.5 Infarction of spleen; Z79.891 Long term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 of opiate analgesic; Z91.14 Patient's other noncompliance with medication regimen; I08.3 Combined rheumatic disorders of mitral, aortic and tricuspid valves; T38.0X6A Underdosing of glucocorticoids and synthetic analogues, initial encounter; E11.69 Type 2 diabetes mellitus with other specified complication
CPT/HCPCS: 36415; 36416; 36430; 36569; 51702; 70450; 70551; 71045; 72141; 72146; 72148; 80048; 80053; 80061; 80202; 80306; 80307; 81003; 81015; 82010; 82140; 82553; 83690; 83735; 83880; 84100; 84443; 84484; 85025; 85060; 85610; 85730; 86780; 86850; 86900; 86901; 87040; 87077; 87086; 87149; 87186; 87324; 87449; 93005; 93010; 93306; 93312; 94640; 94760; 95712; 95819; 95957; 96365; 96367; 96368; 96375; C1751; C9113; J0282; J0692; J0696; J1160; J1644; J1815; J2001; J2270; J2704; J3370; J3475; J3480; J3490; J7070; J7620; P9035; P9047; U0002